=== PATIENT | female | born 1960 | race American Indian/Alaskan Native ===

== ENCOUNTER 2019-02-09 06:34 | Inpatient (IN) | payer MEDICAID ==
[2019-02-09] MEDS ORDERED: NACL 0.9% 1000 ML 1,000 ML IV ONE ×2 (07:00)
[2019-02-09] MEDS ORDERED: PROTONIX IV ONE (07:11)
[2019-02-09] MEDS ORDERED: ZOFRAN IV ONE (07:11)
--- NOTE | 2019-02-09 07:12 | Emergency Department Report ---
HPI - General Chief Complaint: GI Bleed Time Seen by Provider: 02/09/19 06:59 - HPI HPI: Room 4---> 2 The patient is a 58-year-old female presenting with a chief complaint of hematemesis. The patient states she's had hematemesis for the past 2-3 days. The patient states her last bowel movement was black and tarry. Patient states she felt weak for the past 3 days in addition to complaining of some shortness of breath. Patient states she developed diffuse abdominal pain tonight. The patient says she's had increased abdominal girth over the past "couple of days." Location: [See above] Duration: [See above] Quality: [See above] Severity: [See above] Modifying factors: [see above] Context: [see above] Mode of transportation: [not driving] ED Past Medical Hx - Past Medical History Previous Medical History?: Yes Hx Hypertension: Yes Hx Diabetes: Yes Hx Psychiatric Treatment: Yes (major depressive disorder, schizophrenia) Additional medical history: Cerebral infar, withh thrombosis of left cerebral artery, ESRDulcers of esophagus with bleeding, falls, hyperlipidemia, allergic rhinitis, constipation, anemia, vit D deficiency, hypothyroid, chronic pain, sinuitis, pruitis, didpl unsp condyle fx low end l femur 7th D, Hep C - Surgical History Past Surgical History?: Yes Additional Surgical History: left hip - Family History Family history: no significant - Social History Smoking Status: Never Smoker Substance Use Type: None ED Review of Systems ROS: Stated complaint: VOMITING BLOOD Other details as noted in HPI Constitutional: weakness Eyes: denies: eye pain ENT: denies: throat pain Respiratory: shortness of breath Cardiovascular: denies: chest pain Endocrine: no symptoms reported Gastrointestinal: abdominal pain, nausea, vomiting, hematemesis Genitourinary: denies: dysuria Musculoskeletal: denies: back pain Neurological: denies: headache Physical Exam - Physical Exam Vital Signs: Vital Signs 02/09/19 06:54 Temperature 97.7 F Pulse Rate 102 H Respiratory 12 Rate Blood Pressure 82/44 [Left] O2 Sat by Pulse 100 Oximetry Physical Exam: GENERAL: The patient is well-developed well-nourished female lying on stretcher appearing fatigued and ashen. [] HEENT: Normocephalic. Atraumatic. Extraocular motions are intact. Patient has moist mucous membranes. NECK: Supple. Trachea midline CHEST/LUNGS: Clear to auscultation. There is no respiratory distress noted. HEART/CARDIOVASCULAR: Regular. There is tachycardia. There is no gallop rub or murmur. ABDOMEN: Abdomen is soft, nontender. There is abdominal distention SKIN: There is no rash. There is no diaphoresis. NEURO: The patient is awake, alert, and oriented. The patient is cooperative. The patient has normal speech MUSCULOSKELETAL: There is no evidence of acute injury. RECTAL: Guaiac positive black stool ED Course Vital Signs 02/09/19 06:54 Temperature 97.7 F Pulse Rate 102 H Respiratory 12 Rate Blood Pressure 82/44 [Left] O2 Sat by Pulse 100 Oximetry - Consultations Consultation #1: 02/09/19 07:56 Gastroenterology paged 02/09/19 08:[address] Quiroz - STANLEY/Peripheral Line Neck L Time Out Performed: Yes Indications: multiple IV sites needed Skin Cleansed in Sterile Fashion: Yes Size: 20 Dressing Placed: Tegaderm Patient Tolerated Procedure: well, no complications ED Medical Decision Making - Lab Data Result diagrams: 02/09/19 07:08 02/09/19 07:08 Laboratory Tests 02/09/19 02/09/19 02/09/19 07:08 07:08 07:08 WBC 3.8 L RBC 1.30 L Hgb 3.7 L* Hct 11.3 L* MCV 87 MCH 28 MCHC 33 RDW 16.5 H Plt Count 70 L Lymph % (Auto) 18.8 [place] % (Auto) 2.8 Eos % (Auto) 0.0 Baso % (Auto) 0.4 Lymph # 0.7 L [place] # 0.1 Eos # 0.0 Baso # 0.0 Seg Neutrophils % 78.0 H Seg Neutrophils # 2.9 PT 16.1 H INR 1.33 H APTT 34.6 Sodium 137 Potassium 4.1 Chloride 100.0 Carbon Dioxide 27 Anion Gap 14 BUN 43 H Creatinine 4.1 H Estimated GFR 14 BUN/Creatinine Ratio 10 Glucose 138 H Calcium 7.6 L Total Bilirubin 0.20 AST 24 ALT < 5 L Alkaline Phosphatase 28 L Total Protein 5.3 L Albumin 2.4 L Albumin/Globulin Ratio 0.8 Blood Type Antibody Screen Crossmatch 02/09/19 07:08 WBC RBC Hgb Hct MCV MCH MCHC RDW Plt Count Lymph % (Auto) [place] % (Auto) Eos % (Auto) Baso % (Auto) Lymph # [place] # Eos # Baso # Seg Neutrophils % Seg Neutrophils # PT INR APTT Sodium Potassium Chloride Carbon Dioxide Anion Gap BUN Creatinine Estimated GFR BUN/Creatinine Ratio Glucose Calcium Total Bilirubin AST ALT Alkaline Phosphatase Total Protein Albumin Albumin/Globulin Ratio Blood Type B POSITIVE Antibody Screen Negative Crossmatch See Detail - Differential Diagnosis GI bleed Critical Care Time: Yes Critical care time in (mins) excluding proc time.: 30 Critical care attestation.: If time is entered above; I have spent that time in minutes in the direct care of this critically ill patient, excluding procedure time. ED Disposition Clinical Impression: GI bleed Disposition: DC-09 OP ADMIT IP TO THIS HOSP Is pt being admited?: Yes Does the pt Need Aspirin: No Condition: Serious Referrals: STACIE CARPOI MD [Primary Care Provider] - 3-5 Days Forms: Accompanied Note Time of Disposition: 08:06 (hospitalist paged)
[2019-02-09 07:30] LABS: Basophils % (Auto) 0.4 % (0.0-1.8); Lymphocytes # (Auto) 0.7 K/mm3 (1.2-5.4); Lymphocytes % (Auto) 18.8 % (13.4-35.0); Mean Corpuscular HGB Conc 33 % (30-34); Mean Corpuscular Volume 87 fl (79-97); Monocytes # (Auto) 0.1 K/mm3 (0.0-0.8); Monocytes % (Auto) 2.8 % (0.0-7.3); Red Cell Distribution Width 16.5 % (13.2-15.2)
[2019-02-09 07:40] LABS: INR 1.33 (0.87-1.13)
[2019-02-09 07:41] LABS: Partial Thromboplastin Time 34.6 Sec. (24.2-36.6)
[2019-02-09] MEDS ORDERED: NACL 0.9% 500 ML 500 ML IV ONE (07:51)
[2019-02-09 07:53] LABS: Albumin 2.4 g/dL (3.9-5); BUN/Creatinine Ratio 10; Blood Urea Nitrogen 43 mg/dL (7-17); Calcium 7.6 mg/dL (8.4-10.2); Hemolysis Index 2
[2019-02-09 07:54] LABS: Hematocrit 11.3 % (30.3-42.9); Hemoglobin 3.7 gm/dl (10.1-14.3); Platelet Count 70 K/mm3 (140-440)
[2019-02-09 07:58] LABS: Alanine Aminotransferase < 5 units/L (7-56)
[2019-02-09] MEDS: PROTONIX 80 MG in NACL 0.9% 100 ML IV SCH (08:05)
[2019-02-09] MEDS ORDERED: NACL 0.9% IV ONE (08:30)
[2019-02-09] MEDS ORDERED: DDAVP IV ONE (08:30)
[2019-02-09] MEDS ORDERED: LEVOPHED DRIP 4 MG/NS 250 ML 4 MG/250 ML BAG IV SCH (09:00)
--- NOTE | 2019-02-09 09:26 | History and Physical Report ---
History of Present Illness Date of examination: 02/09/19 Date of admission: 02/09/19 08:16 Chief complaint: Hematemesis/Rima 2-3 days History of present illness: 58-year-old female patient with significant past medical history of end-stage renal disease on hemodialysis, hepatitis C, GI bleeding in the past, recently admitted in [facility] discharged a few days ago presented to the emergency room with complaints of hematemesis, black Stools for the last 2-3 days Recent complaints of generalized weakness and some shortness of breath. Patient also complains of worsening abdominal distention Evaluation in the emergency room is consistent with severe anemia with hemoglobin of 3.7, positive stool guaiac and coffee-ground emesis Patient was hypotensive, slightly improved with fluid bolus No other history available, requested medical records from [place] Past History Past Medical History: anemia, dialysis, ESRD, liver disease, other (hepatitis C, schizophrenia, depression, CVA) Past Surgical History: No surgical history Social history: other (group home resident). denies: smoking, alcohol abuse Family history: no significant family history Medications and Allergies Allergies Allergy/AdvReac Type Severity Reaction Status Date / Time guaifenesin [From Robitussin] Allergy Hives Verified 02/09/19 07:00 Penicillins Allergy Hives Verified 02/09/19 07:00 Home Medications Medication Instructions Recorded Confirmed Last Taken Type Acetaminophen [Tylenol] 650 mg PO Q12HR PRN 02/09/19 02/09/19 Unknown History Aspirin EC 81 mg PO QDAY 02/09/19 02/09/19 Unknown History Atorvastatin [Lipitor Tab] 80 mg PO QHS 02/09/19 02/09/19 Unknown History Esomeprazole Magnesium [NexIUM] 40 mg PO Q12H 02/09/19 02/09/19 Unknown History Fluticasone [Flonase] 1 spray NS QDAY 02/09/19 02/09/19 Unknown History Lispro Insulin [HumaLOG] See Protocol SUB-Q ACHS 02/09/19 02/09/19 Unknown History Polyethylene Glycol 3350 [Miralax 17 gm PO QDAY 02/09/19 02/09/19 Unknown History 3350] Active Meds: Active Medications Pantoprazole Sodium 80 mg/ (Sodium Chloride) 100 mls @ 10 mls/hr IV DIRECT ROSELINE Last Admin: 02/09/19 08:05 Dose: 8 mg/hr, 10 mls/hr Documented by: Norepinephrine (Levophed Drip 4 Mg/Ns 250 Ml) 4 mg in 250 mls @ 7.5 mls/hr IV TITR ROSELINE; Protocol Pantoprazole Sodium (Protonix) 40 mg IV BID ROSELINE Review of Systems ROS unobtainable: due to mental status Exam - Constitutional Vitals: Temp Pulse Resp BP Pulse Ox 97.6 F 99 H 11 L 87/51 99 02/09/19 09:12 02/09/19 09:12 02/09/19 09:12 02/09/19 09:12 02/09/19 09:12 General appearance: Present: severe distress, cachectic, disheveled - EENT Eyes: Present: PERRL ([place]) - Neck Neck: Present: supple - Respiratory Respiratory effort: labored Respiratory: bilateral: diminished, rhonchi, negative: rales, wheezing - Cardiovascular Rhythm: regular Heart Sounds: Present: S1 & S2 - Extremities Extremities: no ischemia Extremity abnormal: edema (bilateral), other (chronic changes) - Abdominal General gastrointestinal: Present: soft, non-tender, distended, other (ascites) - Integumentary Integumentary: Present: clear, warm - Musculoskeletal Musculoskeletal: generalized weakness - Psychiatric Psychiatric: agitated - Neurologic Neurologic: moves all extremities Results - Labs CBC & Chem 7: 02/09/19 14:02 02/09/19 07:08 Labs: Abnormal lab results 02/09/19 02/09/19 02/09/19 Range/Units 07:08 07:08 07:08 WBC 3.8 L (4.5-11.0) K/mm3 RBC 1.30 L (3.65-5.03) M/mm3 Hgb 3.7 L* (10.1-14.3) gm/dl Hct 11.3 L* (30.3-42.9) % RDW 16.5 H (13.2-15.2) % Plt Count 70 L (140-440) K/mm3 Lymph # 0.7 L (1.2-5.4) K/mm3 Seg Neutrophils % 78.0 H (40.0-70.0) % PT 16.1 H (12.2-14.9) Sec. INR 1.33 H (0.87-1.13) BUN 43 H (7-17) mg/dL Creatinine 4.1 H (0.7-1.2) mg/dL Glucose 138 H (65-100) mg/dL Calcium 7.6 L (8.4-10.2) mg/dL ALT < 5 L (7-56) units/L Alkaline Phosphatase 28 L (35-129) units/L Total Protein 5.3 L (6.3-8.2) g/dL Albumin 2.4 L (3.9-5) g/dL Crossmatch 02/09/19 Range/Units 07:08 WBC (4.5-11.0) K/mm3 RBC (3.65-5.03) M/mm3 Hgb (10.1-14.3) gm/dl Hct (30.3-42.9) % RDW (13.2-15.2) % Plt Count (140-440) K/mm3 Lymph # (1.2-5.4) K/mm3 Seg Neutrophils % (40.0-70.0) % PT (12.2-14.9) Sec. INR (0.87-1.13) BUN (7-17) mg/dL Creatinine (0.7-1.2) mg/dL Glucose (65-100) mg/dL Calcium (8.4-10.2) mg/dL ALT (7-56) units/L Alkaline Phosphatase (35-129) units/L Total Protein (6.3-8.2) g/dL Albumin (3.9-5) g/dL Crossmatch See Detail Assessment and Plan --Acute upper GI bleeding; Patient has history of hepatitis C, possible variceal source Nothing by mouth , protonic drip, GI consult --Severe acute blood loss anemia; Due to GI bleeding, hemoglobin 3.7% on admission Type and cross, transfuse 2 units PRBCs Additional PRBC transfusion as needed GI evaluation --Hypotension; secondary to acute blood loss; Blood transfusion, IV fluids, Levophed if needed --History of hepatitis C; GI consulted --Ascites; check abdominal ultrasound consider abdominal paracentesis --End-stage renal disease on hemodialysis; Nephrology consulted, hemodialysis per schedule --Severe malnutrition/hypoalbuminemia; nutrition supplements Supportive care, nutrition consult --DVT prophylaxis; SCD No pharmacologic anticoagulation due to GI bleeding --CODE STATUS full code Patient is critically ill, with multiple medical problems Poor prognosis. Patient's condition, treatment plan, prognosis, CODE STATUS Discussed with the mother and sister at the bedside. Addressed all their questions and concerns. Critical care time 60 minutes
[2019-02-09] MEDS ORDERED: NACL 0.9% 500 ML 500 ML IV NR (09:30)
[2019-02-09] MEDS ORDERED: PROTONIX IV SCH (10:00)
--- NOTE | 2019-02-09 11:10 | Ultrasound Report ---
ULTRASOUND ABDOMEN, COMPLETE INDICATION: Ascitis/abd distention. COMPARISON: No relevant prior imaging study available. FINDINGS: Pancreas: No significant abnormality. Abdominal Aorta: No significant abnormality. IVC: No significant abnormality. Liver: The liver measures 15 cm in length. No significant abnormality. Normal hepatopedal blood flow in the main portal vein. Gallbladder: The gallbladder is normal size and contour. At least one small gallstone measuring 5 mm is identified.. Bile ducts: No significant abnormality. Common bile duct measures 4 mm. Kidneys: Right: 9.4 cm in length. Increased echotexture in the right kidney. Left: 8.5 cm in lengt h. Increased echotexture in the left kidney.. Spleen: No significant abnormality. Free fluid: Moderate to large ascites is demonstrated. Additional Findings: None. IMPRESSION: Moderate to large ascites. Unremarkable sonographic appearance of the liver. Echogenic kidneys consistent with nonspecific renal parenchymal disease. Gallstone.. Signer Name: Travis Waggoner Jr, MD Signed: 02/09/2019 11:05 AM Workstation Name: [id number]
--- NOTE | 2019-02-09 11:53 | XRay Report ---
CHEST 1 VIEW INDICATION: Anemia/shortness of breath. COMPARISON: None FINDINGS: Support devices: A right IJ dual-lumen catheter terminates in the right atrium. Heart: Mild cardiomegaly. Lungs/Pleura: Mild pulmonary venous congestion is identified. No pleural effusion or pneumothorax. Fo brendon area of atelectasis is suspected in the lingula. No evidence for pneumonia. Additional findings: None. IMPRESSION: Mild cardiomegaly and pulmonary venous congestion. Segmental atelectasis in the lingula. Signer Name: Travis Waggoner Jr, MD Signed: 02/09/2019 11:48 AM Workstation Name: [id number]
[2019-02-09 14:10] LABS: Hemoglobin 6.4 gm/dl (10.1-14.3); Mean Corpuscular HGB Conc 35 % (30-34); Mean Corpuscular Volume 85 fl (79-97); Red Blood Count 2.16 M/mm3 (3.65-5.03); Red Cell Distribution Width 15.8 % (13.2-15.2)
[2019-02-09 14:20] LABS: Hematocrit 18.4 % (30.3-42.9); Platelet Count 68 K/mm3 (140-440)
--- NOTE | 2019-02-09 14:52 | Consultation ---
History of Present Illness - Reason for Consult Consult date: 02/09/19 Hematemesis Requesting physician: QUINTIN REYES - History of Present Illness Ms. Bess is a 58-year-old woman who was transferred from a rehabilitation facility for vomiting of blood. Family is in the room. Patient was apparently at [facility] twice over the last several weeks with a 11 day hospitalization last time. She was just discharged to home on February 05 and sent to a rehabilitation facility because of a knee injury a year ago and the need to use a walker. According to the family, she was just diagnosed with end-stage renal disease for unclear reasons, and started on hemodialysis 2 weeks ago. Also, patient had hematemesis and was evaluated at [facility] with an upper endoscopy and a colonoscopy approximately 2 weeks ago. The family states that no cause for the bleeding was found. Unfortunately, records are not currently available. Patient states that she has an ulcer in the distal past. She denies heartburn or regurgitation. She notes that this vomiting started initially with by mouth intake, and the blood was not noted initially on vomiting. Patient denies abdominal pain. Bowel movements are once or twice a day, and she states they're green. Patient has a history of hepatitis C, but no known history of cirrhosis. She was apparently on 81 mg aspirin, and Nexium at the re habilitation facility. Medications reviewed. Past History Past Medical History: anemia, dialysis, ESRD, liver disease (Chronic HCV, schizophrenia, L cerebral infarct), other (hepatitis C, schizophrenia, depression, CVA) Past Surgical History: No surgical history Social history: other ([facility] resident). denies: smoking, alcohol abuse Family history: no significant family history Medications and Allergies Allergies Allergy/AdvReac Type Severity Reaction Status Date / Time guaifenesin [From Robitussin] Allergy Hives Verified 02/09/19 07:00 Penicillins Allergy Hives Verified 02/09/19 07:00 Home Medications Medication Instructions Recorded Confirmed Last Taken Type Acetaminophen [Tylenol] 650 mg PO Q12HR PRN 02/09/19 02/09/19 Unknown History Aspirin EC 81 mg PO QDAY 02/09/19 02/09/19 Unknown History Atorvastatin [Lipitor Tab] 80 mg PO QHS 02/09/19 02/09/19 Unknown History Esomeprazole Magnesium [NexIUM] 40 mg PO Q12H 02/09/19 02/09/19 Unknown History Fluticasone [Flonase] 1 spray NS QDAY 02/09/19 02/09/19 Unknown History Lispro Insulin [HumaLOG] See Protocol SUB-Q ACHS 02/09/19 02/09/19 Unknown History Polyethylene Glycol 3350 [Miralax 17 gm PO QDAY 02/09/19 02/09/19 Unknown History 3350] Active Meds: Active Medications Pantoprazole Sodium 80 mg/ (Sodium Chloride) 100 mls @ 10 mls/hr IV DIRECT ROSELINE Last Admin: 02/09/19 08:05 Dose: 8 mg/hr, 10 mls/hr Documented by: Norepinephrine (Levophed Drip 4 Mg/Ns 250 Ml) 4 mg in 250 mls @ 7.5 mls/hr IV TITR ROSELINE; Protocol Sodium Chloride (Nacl 0.9% 500 Ml) 500 mls @ 0 mls/hr IV ONCE NR Stop: 02/09/19 18:00 Review of Systems All systems: negative Exam - Constitutional Vitals: Temp Pulse Resp BP Pulse Ox 97.4 F L 100 H 14 114/66 98 02/09/19 12:05 02/09/19 14:43 02/09/19 14:43 02/09/19 14:43 02/09/19 14:43 General appearance: Present: no acute distress - EENT Eyes: Present: PERRL, EOM intact ENT: hearing intact, other (R IJ line in place for dialysis) - Neck Neck: Present: supple - Respiratory Respiratory effort: normal Respiratory: bilateral: CTA - Cardiovascular Rhythm: regular Heart Sounds: Present: S1 & S2 - Extremities Extremity abnormal: edema (4+) - Abdominal General gastrointestinal: Present: soft, non-tender, other (Anasarca and protruding) Results - Labs CBC & Chem 7: 02/09/19 14:02 02/09/19 07:08 Labs: Abnormal lab results 02/09/19 02/09/19 02/09/19 Range/Units 07:08 07:08 07:08 WBC 3.8 L (4.5-11.0) K/mm3 RBC 1.30 L (3.65-5.03) M/mm3 Hgb 3.7 L* (10.1-14.3) gm/dl Hct 11.3 L* (30.3-42.9) % MCHC (30-34) % RDW 16.5 H (13.2-15.2) % Plt Count 70 L (140-440) K/mm3 Lymph # 0.7 L (1.2-5.4) K/mm3 Seg Neutrophils % 78.0 H (40.0-70.0) % PT 16.1 H (12.2-14.9) Sec. INR 1.33 H (0.87-1.13) BUN 43 H (7-17) mg/dL Creatinine 4.1 H (0.7-1.2) mg/dL Glucose 138 H (65-100) mg/dL Calcium 7.6 L (8.4-10.2) mg/dL ALT < 5 L (7-56) units/L Alkaline Phosphatase 28 L (35-129) units/L Total Protein 5.3 L (6.3-8.2) g/dL Albumin 2.4 L (3.9-5) g/dL Crossmatch 02/09/19 02/09/19 Range/Units 07:08 14:02 WBC 4.1 L (4.5-11.0) K/mm3 RBC 2.16 L (3.65-5.03) M/mm3 Hgb 6.4 L (10.1-14.3) gm/dl Hct 18.4 L* D (30.3-42.9) % MCHC 35 H (30-34) % RDW 15.8 H (13.2-15.2) % Plt Count 68 L (140-440) K/mm3 Lymph # (1.2-5.4) K/mm3 Seg Neutrophils % (40.0-70.0) % PT (12.2-14.9) Sec. INR (0.87-1.13) BUN (7-17) mg/dL Creatinine (0.7-1.2) mg/dL Glucose (65-100) mg/dL Calcium (8.4-10.2) mg/dL ALT (7-56) units/L Alkaline Phosphatase (35-129) units/L Total Protein (6.3-8.2) g/dL Albumin (3.9-5) g/dL Crossmatch See Detail - Imaging and Cardiology US - abdomen: report reviewed (Moderate ascites, normal liver, gallstone) Assessment and Plan 1. Hematemesis - with anemia. Etiology unclear. Perplexing since pt just had EGD/Colon at [facility] ~ 2 wks ago. Need to reevaluate to see if there is truly blood in stomach, and to o/w identify source. DDx - PUD, varices, mass, es ophagitis, though Paula-Alamo tear most likely if negative recent EGD. - will do urgent EGD - risks, etc discussed with pt and family. - agree with PPI drip - further plans based on EGD 2. Anemia - acute, blood loss. Baseline H/H unknown, and likely has chronic anemia based on ESRD. - transfuse and monitor. 3. Hx HCV - chronic. Outpatient management. Need to try and get [facility] records.
[2019-02-09] MEDS ORDERED: XYLOCAINE MPF 2% ONE (15:00)
--- NOTE | 2019-02-09 15:16 | Consultation ---
History of Present Illness - Reason for Consult Consult date: 02/09/19 end stage renal disease - History of Present Illness Mrs. Bess is a 58-year-old female w/ hx of HCV and recent dx of ESRD who presented to the ED with a 3-4 day history of melena and hemetemesis. Patient denies abdominal pain. She reports weakness. In the ED, patient was hypotensive. Labs were notable for a Hb 3.7. During visit, she again had an episosde of hemetemesis. Past History Past Medical History: anemia, dialysis, ESRD, hepatitis (Hepatitis C ), hyperlipidemia, liver disease (Chronic HCV, schizophrenia, L cerebral infarct), stroke, other (Schizophrenia, Depression) Past Surgical History: No surgical history Social history: other (half-way resident). denies: smoking, alcohol abuse Family history: no significant family history Medications and Allergies Allergies Allergy/AdvReac Type Severity Reaction Status Date / Time guaifenesin [From Robitussin] Allergy Hives Verified 02/09/19 07:00 Penicillins Allergy Hives Verified 02/09/19 07:00 Home Medications Medication Instructions Recorded Confirmed Last Taken Type Acetaminophen [Tylenol] 650 mg PO Q12HR PRN 02/09/19 02/09/19 Unknown History Aspirin EC 81 mg PO QDAY 02/09/19 02/09/19 Unknown History Atorvastatin [Lipitor Tab] 80 mg PO QHS 02/09/19 02/09/19 Unknown History Esomeprazole Magnesium [NexIUM] 40 mg PO Q12H 02/09/19 02/09/19 Unknown History Fluticasone [Flonase] 1 spray NS QDAY 02/09/19 02/09/19 Unknown History Lispro Insulin [HumaLOG] See Protocol SUB-Q ACHS 02/09/19 02/09/19 Unknown History Polyethylene Glycol 3350 [Miralax 17 gm PO QDAY 02/09/19 02/09/19 Unknown History 3350] Active Meds: Active Medications Pantoprazole Sodium 80 mg/ (Sodium Chloride) 100 mls @ 10 mls/hr IV DIRECT ROSELINE Last Admin: 02/09/19 08:05 Dose: 8 mg/hr, 10 mls/hr Documented by: Norepinephrine (Levophed Drip 4 Mg/Ns 250 Ml) 4 mg in 250 mls @ 7.5 mls/hr IV TITR ROSELINE; Protocol Sodium Chloride (Nacl 0.9% 500 Ml) 500 mls @ 0 mls/hr IV ONCE NR Stop: 02/09/19 18:00 Review of Systems All systems: negative Exam - Vital Signs Vital signs: Vital Signs Temp Pulse Resp BP Pulse Ox 97.7 F 102 H 12 82/44 100 02/09/19 06:54 02/09/19 06:54 02/09/19 06:54 02/09/19 06:54 02/09/19 06:54 - General Appearance General appearance: frail, other (appears older than stated age) EENT: ATNC Respiratory: Decreased Breath Sounds Heart: regular, S1S2 Gastrointestinal: Present: other (markedly distended, tense ascites, nontender) Integumentary: no rash, warm and dry Musculoskeletal: Present: other (+edema) Psychiatric: cooperative Results - Lab Results 02/10/19 04:00 02/09/19 07:08 Most recent lab results Calcium 7.6 mg/dL (8.4-10.2) L 02/09/19 07:08 Assessment and Plan Impression: * End stage renal disease on HD TTS * Upper GI bleed --EGD: Normal esophagus, no varices; 4 cm hiatal hernia, no obvious Paula- [place] tear; gastric fundus and greater curve of body obscured by clot and small amount of fresh blood. No active pooling or bleeding noted. No antroduodenal ulcers --Abdominal u/s: mod to large ascites; unremarkable sonographic appearance of the liver --CTA Abd/Pelvis: large amt of abdominal ascites. Cirrhotic morphology of liver w/ nodular surface contour; moderate diffuse hepatic steatosis w/ focal geographic 3.7cm perfusion abnormality or focal fatty sparing * Severe anemia * Hypotension secondary to ABL * Abdominal ascities * Hepatitis C Plan: * Presently, patient is not stable for hemodialysis. During visit, she again had an episosde of hemetemesis. There is no emergent need for HD presently * Will reassess in AM * Transfuse pRBC per primary team * Therapeutic paracentesis per primary team * GI recommendations noted * Note radiology recommendation for three phase abdominal CT * Avoid potential nephrotoxins * Dose medications for renal function
[2019-02-09] MEDS ORDERED: DIPRIVAN 10 MG/ML IV ONE (15:17)
[2019-02-09] MEDS ORDERED: AMIDATE IV ONE (15:17)
[2019-02-09] MEDS ORDERED: VERSED ONE (15:17)
[2019-02-09] MEDS ORDERED: WATER FOR IRRIG STERILE IR ONE (15:31)
[2019-02-09] MEDS ORDERED: NACL 0.9% 1000 ML 1,000 ML ONE (15:33)
[2019-02-09] MEDS ORDERED: ADRENALINE P/F ONE (15:33)
--- NOTE | 2019-02-09 15:33 | Anesthesia Day of Surgery ---
Anesthesia Day of Surgery - Day of Surgery Patient Examined: Yes Patient H&P Reviewed: Yes Patient is NPO: Yes
--- NOTE | 2019-02-09 15:43 | Anesthesia Consultation ---
Anesthesia Consult and Med Hx Date of service: 02/09/19 - Airway Anesthetic Teeth Evaluation: Poor ROM Head & Neck: Adequate Mental/Hyoid Distance: Adequate Mallampati Class: Class II Intubation Access Assessment: Probably Good - Pre-Operative Health Status ASA Pre-Surgery Classification: ASA4, Emergency Proposed Anesthetic Plan: MAC - Cardiovascular System Hx Hypertension: Yes (HX CHF) - Central Nervous System Hx Seizures: No (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) Hx Psychiatric Problems: Yes (Depression and schizophrenia) - Gastrointestinal Hx Ulcer: Yes - Endocrine Hx Renal Disease: Yes Hx End Stage Renal Disease: Yes (Last HD yesterday) Hx Liver Disease: Yes (HEP C) Hx Insulin Dependent Diabetes: Yes Hx Thyroid Disease: Yes - Hematic Hx Anemia: Yes (Received 3 units PRBC)
--- NOTE | 2019-02-09 16:08 | Post Operative Note ---
Pre-op diagnosis: GI bleed Post-op diagnosis: other (Hiatal hernia, Fresh blood and clot in gastric fundus and body, no varices, no antroduodenal ulcers.) Findings: 1. Normal esophagus, no varices. 2. ~ 4 cm hiatal hernia, no obvious Paula-Alamo tear 3. Gastric fundus and greater curve of body obscured by clot and small amount of fresh blood. No active pooling or bleeding noted. 4. Normal antrum, cardia, and duodenum. Procedure: EGD Anesthesia: MAC Surgeon: BRY REYNA Estimated blood loss: 50-100ml Pathology: none Condition: stable Disposition: ICU (1. IV PPI drip 2. Discuss DDAVP with Renal 3. Monitor H/H and transfuse if needed. 4. If ongoing bleed, IR consultation.)
--- NOTE | 2019-02-09 16:53 | Consultation ---
History of Present Illness - Reason for Consult Consult date: 02/09/19 upper GI bleed - History of Present Illness Pt with ESRD recently released from [place] now with upper GI bleed and Hgb of 3. 7. Endoscopy with no active source of bleeding but evidence of fresh blood. Past History Past Medical History: anemia, dialysis, ESRD, liver disease (Chronic HCV, schizophrenia, L cerebral infarct), other (hepatitis C, schizophrenia, depression, CVA) Past Surgical History: No surgical history Social history: other (halfway resident). denies: smoking, alcohol abuse Family history: no significant family history Medications and Allergies Allergies Allergy/AdvReac Type Severity Reaction Status Date / Time guaifenesin [From Robitussin] Allergy Hives Verified 02/09/19 07:00 Penicillins Allergy Hives Verified 02/09/19 07:00 Home Medications Medication Instructions Recorded Confirmed Last Taken Type Acetaminophen [Tylenol] 650 mg PO Q12HR PRN 02/09/19 02/09/19 Unknown History Aspirin EC 81 mg PO QDAY 02/09/19 02/09/19 Unknown History Atorvastatin [Lipitor Tab] 80 mg PO QHS 02/09/19 02/09/19 Unknown History Esomeprazole Magnesium [NexIUM] 40 mg PO Q12H 02/09/19 02/09/19 Unknown History Fluticasone [Flonase] 1 spray NS QDAY 02/09/19 02/09/19 Unknown History Lispro Insulin [HumaLOG] See Protocol SUB-Q ACHS 02/09/19 02/09/19 Unknown History Polyethylene Glycol 3350 [Miralax 17 gm PO QDAY 02/09/19 02/09/19 Unknown History 3350] Active Meds: Active Medications Desmopressin Acetate (Ddavp) 2 mcg IV Q12HR ROSELINE Pantoprazole Sodium 80 mg/ (Sodium Chloride) 100 mls @ 10 mls/hr IV DIRECT ROSELINE Last Admin: 02/09/19 08:05 Dose: 8 mg/hr, 10 mls/hr Documented by: Norepinephrine (Levophed Drip 4 Mg/Ns 250 Ml) 4 mg in 250 mls @ 7.5 mls/hr IV TITR ROSELINE; Protocol Last Admin: 02/09/19 16:40 Dose: 4 mcg/min, 15 mls/hr Documented by: Sodium Chloride (Nacl 0.9% 500 Ml) 500 mls @ 0 mls/hr IV ONCE NR Stop: 02/09/19 18:00 Review of Systems All systems: negative Exam - Constitutional Vitals: Temp Pulse Resp BP Pulse Ox 98.2 F 102 H 18 107/52 99 02/09/19 15:10 02/09/19 15:10 02/09/19 15:10 02/09/19 15:10 02/09/19 15:10 General appearance: Present: no acute distress - EENT Eyes: Present: EOM intact ENT: hearing intact - Neck Neck: Present: supple, normal ROM - Respiratory Respiratory effort: normal - Cardiovascular Rhythm: other (tachycardia) - Abdominal General gastrointestinal: Present: deferred Female genitourinary: Present: deferred - Rectal Rectal Exam: deferred - Psychiatric Psychiatric: cooperative Results - Labs CBC & Chem 7: 02/09/19 14:02 02/09/19 07:08 Labs: Abnormal lab results 02/09/19 02/09/19 02/09/19 Range/Units 07:08 07:08 07:08 WBC 3.8 L (4.5-11.0) K/mm3 RBC 1.30 L (3.65-5.03) M/mm3 Hgb 3.7 L* (10.1-14.3) gm/dl Hct 11.3 L* (30.3-42.9) % MCHC (30-34) % RDW 16.5 H (13.2-15.2) % Plt Count 70 L (140-440) K/mm3 Lymph # 0.7 L (1.2-5.4) K/mm3 Seg Neutrophils % 78.0 H (40.0-70.0) % PT 16.1 H (12.2-14.9) Sec. INR 1.33 H (0.87-1.13) BUN 43 H (7-17) mg/dL Creatinine 4.1 H (0.7-1.2) mg/dL Glucose 138 H (65-100) mg/dL Calcium 7.6 L (8.4-10.2) mg/dL ALT < 5 L (7-56) units/L Alkaline Phosphatase 28 L (35-129) units/L Total Protein 5.3 L (6.3-8.2) g/dL Albumin 2.4 L (3.9-5) g/dL Crossmatch 02/09/19 02/09/19 Range/Units 07:08 14:02 WBC 4.1 L (4.5-11.0) K/mm3 RBC 2.16 L (3.65-5.03) M/mm3 Hgb 6.4 L (10.1-14.3) gm/dl Hct 18.4 L* D (30.3-42.9) % MCHC 35 H (30-34) % RDW 15.8 H (13.2-15.2) % Plt Count 68 L (140-440) K/mm3 Lymph # (1.2-5.4) K/mm3 Seg Neutrophils % (40.0-70.0) % PT (12.2-14.9) Sec. INR (0.87-1.13) BUN (7-17) mg/dL Creatinine (0.7-1.2) mg/dL Glucose (65-100) mg/dL Calcium (8.4-10.2) mg/dL ALT (7-56) units/L Alkaline Phosphatase (35-129) units/L Total Protein (6.3-8.2) g/dL Albumin (3.9-5) g/dL Crossmatch See Detail Assessment and Plan Pt will likely ultimately need treatment. Stable for now so will obtain a CT of the Abdomen and Pelvis to evaluate for possible sources of bleeding.
--- NOTE | 2019-02-09 18:07 | Operative Report ---
UPPER ENDOSCOPY REPORT PROCEDURE: Upper endoscopy. PREOPERATIVE DIAGNOSIS: Hematemesis. POSTOPERATIVE DIAGNOSIS: Fresh red blood and clot in proximal stomach. SEDATION: MAC by Anesthesia. HISTORY: The patient is a 58-year-old woman with end-stage renal disease, starting dialysis 2 weeks ago. She has a history of hematemesis less than a month ago and had an upper and lower endoscopy at [facility], which was apparently nondiagnostic according to the family. She was discharged from [facility] 4 days ago and brought in from the rehab center today because of vomiting blood. Her hemoglobin was 3.5 on admission. DESCRIPTION OF PROCEDURE: Indications, risks, and benefits were explained and consent was obtained. The patient was placed in left lateral decubitus position and sedated. Video upper endoscope was passed through the mouth and oropharynx into the descending duodenum. Scope was then gradually withdrawn with close inspection of mucosa. FINDINGS: 1. Normal appearing esophagus with no varices noted. There was fresh red blood and clot refluxing up from the stomach. 2. A 3-4 cm hiatal hernia. No Paula-Alamo tear noted. 3. Gastric antrum and lesser curve appeared normal with no ulcers, mass lesions or active bleeding noted. 4. There was fresh red blood and clot in gastric fundus along greater curvature. There was no active pooling noted. This precluded visualization. 5. Normal appearing duodenal bulb and duodenum. The patient tolerated the procedure well without immediate complications. IMPRESSION: 1. Normal esophagus with hiatal hernia and no varices or Paula-Alamo tear. 2. Fresh red blood and clot in gastric fundus and greater curvature of body precluding visualization. 3. Normal antrum, duodenal bulb and duodenum. PLAN: 1. Monitor H and H and transfuse as needed, in ICU. 2. Discussed possible dose of DDAVP with Nephrology, in order to try and facilitate clotting. 3. If has further bleeding, Interventional Radiology evaluation. 4. The patient may well have a Dieulafoy's lesion as a source of bleeding if nothing else is found. JOB# [id number] HRC/NTS
[2019-02-09 19:11] LABS: Hematocrit 18.1 % (30.3-42.9); Hemoglobin 5.9 gm/dl (10.1-14.3)
[2019-02-09] MEDS ORDERED: NACL 0.9% 250ML 250 ML ONE (21:02)
--- NOTE | 2019-02-09 21:39 | Cat Scan Report ---
CTA ABDOMEN AND PELVIS WITHOUT AND WITH IV CONTRAST INDICATION: upper GI bleed arterial and venous phases. TECHNIQUE: Axial CT images were obtained through the abdomen and pelvis before and after after injection of 100 cc Omnipaque 350 IV contrast. 3 plane MIP reconstructions were produced. [facility] CT [facility] are [facility] using CT dose reduction for ALARA by means of automated exposure control. COMPARISON: None available. FINDINGS: Aorta: Extensive vascular calcifications without aneurysmal dilatation or dissection. Renal arteries: Extensive calcified plaque right proximal renal artery with 75-90% diameter stenosis reduction. Moderate atherosclerotic vascular disease left renal artery with 50% diameter stenosis red uction Celiac artery: 35% diameter stenosis reduction at the origin Superior mesenteric artery: No acute abnormality. Inferior mesenteric artery: No acute abnormality. Right iliac arteries: Moderate atherosclerotic calcifications without stenosis or occlusion Left iliac arteries: Moderate atherosclerotic disease without stenosis or occlusion The esophagus is fluid-filled and moderately dilated. Moderate bilateral pleural effusions, right gre ater than left are present with compressive atelectasis in both lower lobes. CT ABDOMEN: Large amount of abdominal ascites. Cirrhotic morphology of liver with nodular surface con tour. Moderate diffuse hepatic steatosis with focal geographic 3.7 cm perfusional abnormality or foca l fatty sparing. Pancreas, spleen, adrenals and kidneys appear within normal limits. CT PELVIS: Massive amount of ascites is seen throughout the pelvis. There is displacement of bowel lo ops centrally without obstruction or ileus. Uterus, adnexal structures, bladder and distal ureters ar e unremarkable. No lymphadenopathy is seen throughout the abdomen or pelvis. Skeletal Structures: No acute osseous abnormality. IMPRESSION: 1. Cirrhosis with massive amount of abdominal ascites. 2. Indeterminate 3.7 cm enhancing or perfusional abnormality within the anterior hepatic segment. Rec ommend follow-up three-phase abdominal CT or to exclude underlying hepatocellular carcinoma. 3. Fluid-filled moderately dilated esophagus. 4 moderate bilateral pleural effusions. Signer Name: Kenton Marrero MD Signed: 02/09/2019 9:34 PM Workstation Name: [id number]
[2019-02-09] MEDS: ZOFRAN IV PRN (23:26)
[2019-02-10] MEDS ORDERED: NACL 0.9% 500 ML 500 ML IV ONE ×3 (01:09→03:48)
--- NOTE | 2019-02-10 03:35 | Procedure Note ---
Date of procedure: 02/10/19 Pre-op diagnosis: hypotension. gi bleed Post-op diagnosis: same Procedure: Procedure note: I was asked by the hospitalist group to place a central venous line in the patient since the patient is hypotensive and on pressors and receiving multiple units of blood. Patient currently has a left EJ being used and a right chest Vas-Cath. Patient required a femoral line placed since there is no other side available. Consent was done by the hospitalist nurse practitioner and myself. The patient agreed to have the procedure done. Femoral Central Line Procedure Note: INDICATION: Hypotension on pressors and IV access. Ultrasound Used: Y CONSENT: Consent was obtained from patient prior to the procedure. Indications, risks, and benefits were explained at length. PROCEDURE SUMMARY: starting with the first handwash prior to starting sterile technique. A time out was performed. My hands were washed immediately prior to the procedure. I wore a surgical cap, mask with protective eyewear, sterile gown and sterile gloves throughout the procedure. The RIGHT inguinal region was prepped using chlorhexidine scrub and draped in sterile fashion using a full drape and sterile probe cover employed. The femoral pulse was identified. Anesthesia was achieved using 1% lidocaine. Palpating the femoral pulse throughout the procedure and ultrasound guidance, the introducer needle was inserted medial to the femoral artery, inferior to the inguinal crease and into the femoral vein. Venous blood was withdrawn. The syringe was removed and a guidewire was advanced into the introducer needle. A small incision was made at the skin surface with a scalpel and the introducer needle was exchanged for a dilator over the guidewire. After appropriate dilation was obtained, the dilator was exchanged over the wire for a triple lumen central venous catheter. The wire was removed and the catheter was sutured in place. A sterile antibiotic disc was placed over the catheter at the insertion site. Sterile dressing/Tegaderm placed over triple lumen. The patient tolerated the procedure without any hemodynamic compromise. At time of procedure completion, all ports aspirated and flushed properly. Estimated blood loss is minimal. Anesthesia: local Estimated blood loss: minimal Pathology: none Condition: critical Disposition: ICU
--- NOTE | 2019-02-10 03:36 | Event Note ---
Date: 02/10/19 58 year old female with ESRD and upper GI bleed. Has had melena and poor response to pRBC. CT scan shows ascites, pleural effusions, anasarca, but there is NO CIRRHOSIS. The liver has a normal contour. The spleen is small-normal in size. NO VARICES. Discussed with Dr. Espinoza. Patient will need left gastric artery embolization given refractory bleeding presumably from a fundus/gastric source. Given thrombocytopenia, will attempt to transfuse 2 units platelets prior to procedure. Given anemia, will attempt to transfuse blood prior to procedure. Plan for procedure in AM.
--- NOTE | 2019-02-10 03:41 | Gastroenterology Progress Note ---
Assessment and Plan - Patient Problems (1) Acute blood loss anemia Current Visit: Yes Status: Acute Plan to address problem: - Recurrent UGI bleeding ([place], [facility]) with (-) EGD x 2 for varices or obvious ulcer (both times obscured by blood) and (-) colonoscopy at [place]. - CT scan reviewed by Dr Acuna; ascites likely related to anasarca/renal disease; no convincing varices or nodular liver and spleen WNL. - Will add octreotide, and continue transfusion. - Platelets ordered from Blood Bank, and when completed, will plan embolization in [facility] [employer] [facility] this AM for likely vascular lesion. - Will plan repeat EGD based on clinical course after embolization. (2) Hepatitis C Current Visit: Yes Status: Acute Plan to address problem: - No prior treatment; recent dx. - Possible early cirrhosis (ascites, low platelets) but no gross varices on CT, and liver/spleen normal appearance per IR (despite official CT report). Subjective Date of service: 02/10/19 Principal diagnosis: GI Bleed Interval history: The patient has continued to have melena during the evening. She is awake and alert, and on a stable dose of levophed. There has been no further hematemesis. She denies abdominal pain. Her O2 sats have been 100% on 1-2L O2. Objective - Constitutional Vitals: Temp Pulse Resp BP Pulse Ox 96.4 F L 97 H 20 128/77 100 02/10/19 03:12 02/10/19 03:12 02/10/19 03:12 02/10/19 03:12 02/10/19 03:12 - EENT ENT: hearing intact, clear oral mucosa - Respiratory Respiratory effort: normal Respiratory: bilateral: CTA - Cardiovascular Rhythm: regular Heart Sounds: Present: S1 & S2 - Extremities Extremities: no ischemia, No edema - Gastrointestinal General gastrointestinal: Present: soft, non-tender, non-distended Rectal Exam: stool bloody - Labs CBC & Chem 7: 02/09/19 18:56 02/09/19 07:08 Labs: Laboratory Results - last 24 hr 02/09/19 02/09/19 02/09/19 07:08 07:08 07:08 WBC 3.8 L RBC 1.30 L Hgb 3.7 L* Hct 11.3 L* MCV 87 MCH 28 MCHC 33 RDW 16.5 H Plt Count 70 L Lymph % (Auto) 18.8 [place] % (Auto) 2.8 Eos % (Auto) 0.0 Baso % (Auto) 0.4 Lymph # 0.7 L [place] # 0.1 Eos # 0.0 Baso # 0.0 Seg Neutrophils % 78.0 H Seg Neutrophils # 2.9 PT 16.1 H INR 1.33 H APTT 34.6 Sodium 137 Potassium 4.1 Chloride 100.0 Carbon Dioxide 27 Anion Gap 14 BUN 43 H Creatinine 4.1 H Estimated GFR 14 BUN/Creatinine Ratio 10 Glucose 138 H Calcium 7.6 L Total Bilirubin 0.20 AST 24 ALT < 5 L Alkaline Phosphatase 28 L Total Protein 5.3 L Albumin 2.4 L Albumin/Globulin Ratio 0.8 Blood Type Antibody Screen Crossmatch 02/09/19 02/09/19 02/09/19 07:08 14:02 18:56 WBC 4.1 L RBC 2.16 L Hgb 6.4 L 5.9 L* Hct 18.4 L* D 18.1 L* MCV 85 MCH 30 MCHC 35 H RDW 15.8 H Plt Count 68 L Lymph % (Auto) [place] % (Auto) Eos % (Auto) Baso % (Auto) Lymph # [place] # Eos # Baso # Seg Neutrophils % Seg Neutrophils # PT INR APTT Sodium Potassium Chloride Carbon Dioxide Anion Gap BUN Creatinine Estimated GFR BUN/Creatinine Ratio Glucose Calcium Total Bilirubin AST ALT Alkaline Phosphatase Total Protein Albumin Albumin/Globulin Ratio Blood Type B POSITIVE Antibody Screen Negative Crossmatch See Detail
[2019-02-10] MEDS: SandoSTATIN 500 MCG in NACL 0.9% 100 ML IV SCH ×3 (03:43→21:15)
[2019-02-10 04:39] LABS: Hemoglobin 6.4 gm/dl (10.1-14.3)
[2019-02-10 04:45] LABS: Hematocrit 18.3 % (30.3-42.9)
[2019-02-10 04:48] LABS: INR 1.42 (0.87-1.13)
[2019-02-10] MEDS ORDERED: NACL 0.9% 250ML 250 ML ONE (07:32)
--- NOTE | 2019-02-10 08:03 | Progress Note ---
Assessment and Plan Assessment and plan: -- Acute upper GI bleeding; s/p EGD 02/09/19. - Normal esophagus, no varices. -~ 4 cm hiatal hernia, no obvious Paula-Alamo tear -Gastric fundus and greater curve of body obscured by clot and small amount of fresh blood. No active pooling or bleeding noted. -Normal antrum, cardia, and duodenum. Nothing by mouth , protonix drip, GI following IR following, scheduled for gastric artery embolization today --Severe acute blood loss anemia;s/p total 4 units PRBC today Hb 6.4, transfusing Additional 2 units PRBC this morning --thrombocytopenia;s/p platelets transfusion . --Hypovolemic shock /Hypotension; secondary to acute blood loss; Blood transfusion, IV fluids, s/p Levophed [Dced this morning] --History of hepatitis C; no evidence of cirrhosis liver on CT LFTs within normal range, no varices on EGD However patient has thrombocytopenia, coagulopathy --Ascites; moderate to large consider abdominal paracentesis --End-stage renal disease on hemodialysis; Nephrology consulted, hemodialysis per schedule --Severe malnutrition/hypoalbuminemia; nutrition supplements Supportive care, nutrition consult --DVT prophylaxis; SCD No pharmacologic anticoagulation due to GI bleeding --CODE STATUS full code Consults and recommendations noted and appreciated Monitor closely and adjust management as needed Critical care time 35 minutes History Interval history: Patient seen and examined medical records reviewed Patient's hemoglobin continues to drop even after 4 units of PRBC Thrombocytopenia is received 2 units of platelets Interventional radiologist planning gastric artery embolization today Patient is in acute distress Vital signs noted Hospitalist Physical - Constitutional Vitals: Temp Pulse Resp BP Pulse Ox 97 F L 94 H 15 138/80 100 02/10/19 04:34 02/10/19 04:34 02/10/19 04:34 02/10/19 04:34 02/10/19 04:34 General appearance: Present: mild distress, well-nourished, other (pallor) - EENT Eyes: Present: PERRL, EOM intact - Neck Neck: Present: supple, normal ROM - Respiratory Respiratory effort: normal Respiratory: bilateral: diminished, negative: rales, rhonchi, wheezing - Cardiovascular Rhythm: regular Heart Sounds: Present: S1 & S2 - Extremities Extremities: no ischemia, No edema Extremity abnormal: edema, cyanosis Peripheral Pulses: within normal limits - Abdominal General gastrointestinal: soft, non-tender, non-distended, normal bowel sounds - Integumentary Integumentary: Present: clear, warm - Psychiatric Psychiatric: appropriate mood/affect, cooperative, other (anxious) - Neurologic Neurologic: moves all extremities Results - Labs CBC & Chem 7: 02/10/19 13:34 02/10/19 13:34 Labs: Laboratory Last Values WBC 4.1 K/mm3 (4.5-11.0) L 02/09/19 14:02 RBC 2.16 M/mm3 (3.65-5.03) L 02/09/19 14:02 Hgb 6.4 gm/dl (10.1-14.3) L 02/10/19 04:00 Hct 18.3 % (30.3-42.9) L* 02/10/19 04:00 MCV 85 fl (79-97) 02/09/19 14:02 MCH 30 pg (28-32) 02/09/19 14:02 MCHC 35 % (30-34) H 02/09/19 14:02 RDW 15.8 % (13.2-15.2) H 02/09/19 14:02 Plt Count 68 K/mm3 (140-440) L 02/09/19 14:02 Lymph % (Auto) 18.8 % (13.4-35.0) 02/09/19 07:08 [place] % (Auto) 2.8 % (0.0-7.3) 02/09/19 07:08 Eos % (Auto) 0.0 % (0.0-4.3) 02/09/19 07:08 Baso % (Auto) 0.4 % (0.0-1.8) 02/09/19 07:08 Lymph # 0.7 K/mm3 (1.2-5.4) L 02/09/19 07:08 [place] # 0.1 K/mm3 (0.0-0.8) 02/09/19 07:08 Eos # 0.0 K/mm3 (0.0-0.4) 02/09/19 07:08 Baso # 0.0 K/mm3 (0.0-0.1) 02/09/19 07:08 Seg Neutrophils % 78.0 % (40.0-70.0) H 02/09/19 07:08 Seg Neutrophils # 2.9 K/mm3 (1.8-7.7) 02/09/19 07:08 PT 17.0 Sec. (12.2-14.9) H 02/10/19 04:00 INR 1.42 (0.87-1.13) H 02/10/19 04:00 APTT 34.6 Sec. (24.2-36.6) 02/09/19 07:08 Sodium 137 mmol/L (137-145) 02/09/19 07:08 Potassium 4.1 mmol/L (3.6-5.0) 02/09/19 07:08 Chloride 100.0 mmol/L (98-107) 02/09/19 07:08 Carbon Dioxide 27 mmol/L (22-30) 02/09/19 07:08 14 mmol/L 02/09/19 07:08 BUN 43 mg/dL (7-17) H 02/09/19 07:08 4.1 mg/dL (0.7-1.2) H 02/09/19 07:08 Estimated GFR 14 ml/min 02/09/19 07:08 10 % 02/09/19 07:08 Glucose 138 mg/dL (65-100) H 02/09/19 07:08 Calcium 7.6 mg/dL (8.4-10.2) L 02/09/19 07:08 0.20 mg/dL (0.1-1.2) 02/09/19 07:08 AST 24 units/L (5-40) 02/09/19 07:08 ALT < 5 units/L (7-56) L 02/09/19 07:08 28 units/L (35-129) L 02/09/19 07:08 5.3 g/dL (6.3-8.2) L 02/09/19 07:08 2.4 g/dL (3.9-5) L 02/09/19 07:08 0.8 % 02/09/19 07:08 Blood Type B POSITIVE 02/09/19 07:08 Antibody Screen Negative 02/09/19 07:08 Crossmatch See Detail 02/09/19 07:08 Active Medications - Current Medications Current Medications: Generic Name Dose Route Start Last Admin Trade Name Andry PRN Reason Stop Dose Admin Desmopressin Acetate 2 mcg 02/09/19 22:00 Ddavp IV Q12HR ROSELINE Pantoprazole Sodium 80 mg/ 100 mls @ 10 mls/hr 02/09/19 08:00 02/09/19 08:05 Sodium Chloride IV 8 mg/hr DIRECT ROSELINE 10 mls/hr Administration 8 MG/HR Norepinephrine 4 mg in 250 mls @ 7.5 mls/hr 02/09/19 09:00 02/09/19 18:23 Levophed Drip 4 Mg/Ns 250 Ml IV 4 mcg/min TITR ROSELINE 15 mls/hr Titration Protocol 2 MCG/MIN Octreotide Acetate 500 mcg/ 101 mls @ 10.1 mls/hr 02/10/19 04:00 02/10/19 03:43 Sodium Chloride IV 50 mcg/hr TITR ROSELINE 10.1 mls/hr Administration Protocol 50 MCG/HR Ondansetron HCl 4 mg 02/09/19 18:48 02/09/19 23:26 Zofran IV 4 mg Q4H PRN Administration Vomiting
[2019-02-10] MEDS ORDERED: LEVAQUIN 500MG/100ML 0 MG/0 ML BAG IV ONE (10:06)
[2019-02-10] MEDS ORDERED: NACL 0.9% 1000 ML 0 ML ONE (10:06)
[2019-02-10] MEDS ORDERED: HEPARIN/NS 5000 UNIT/500ML(CATH LAB) 1,500 ML IR ONE (10:06)
[2019-02-10] MEDS ORDERED: XYLOCAINE 2% INFILTRATI ONE (10:06)
[2019-02-10] MEDS ORDERED: NACL 0.9% 100 ML IV PRN (10:32)
--- NOTE | 2019-02-10 10:59 | Progress Note ---
Assessment and Plan Impression: * End stage renal disease on HD TTS * Upper GI bleed --EGD: Normal esophagus, no varices; 4 cm hiatal hernia, no obvious Paula- Alamo tear; gastric fundus and greater curve of body obscured by clot and small amount of fresh blood. No active pooling or bleeding noted. No antroduodenal ulcers --Abdominal u/s: mod to large ascites; unremarkable sonographic appearance of the liver --CTA Abd/Pelvis: large amt of abdominal ascites. Cirrhotic morphology of liver w/ nodular surface contour; moderate diffuse hepatic steatosis w/ focal geographic 3.7cm perfusion abnormality or focal fatty sparing * Severe anemia * Hypotension secondary to ABL * Abdominal ascities * Hepatitis C Plan: * A blood pressure seems to be better this morning. She has just been weaned off of Levophed. * Patient had a CT scan with contrast done yesterday. Going down for embolization of her gastric artery. * Plan to dialyze her today after the procedure * Transfuse pRBC per primary team * Therapeutic paracentesis per primary team * GI recommendations noted * Avoid potential nephrotoxins * Dose medications for renal function * Discussed with ICU team and Dr. Acuna Subjective Date of service: 02/10/19 Principal diagnosis: GI Bleed Interval history: Patient is comfortable this morning. Denies any shortness of breath. Has received multiple units of packed RBC. She is going down for embolization of her gastric artery. Patient continues to have melena Objective - Vital Signs Vital signs: Vital Signs - 12hr 02/09/19 02/09/19 02/09/19 23:00 23:01 23:11 Temperature 98.2 F Pulse Rate 81 48 L Respiratory 19 18 Rate Blood Pressure 163/99 143/100 O2 Sat by Pulse 100 100 Oximetry 02/09/19 02/09/19 02/09/19 23:21 23:31 23:40 Temperature Pulse Rate 54 L 46 L 47 L Respiratory 18 18 18 Rate Blood Pressure 158/98 157/93 152/100 O2 Sat by Pulse 100 100 100 Oximetry 02/09/19 02/09/19 02/10/19 23:51 23:59 00:01 Temperature 98 F Pulse Rate 52 L 97 H 49 L Respiratory 18 14 18 Rate Blood Pressure 163/95 90/70 152/100 O2 Sat by Pulse 100 100 100 Oximetry 02/10/19 02/10/19 02/10/19 00:11 00:21 00:31 Temperature Pulse Rate 71 68 59 L Respiratory 18 18 18 Rate Blood Pressure 169/91 135/90 136/88 O2 Sat by Pulse 100 100 100 Oximetry 02/10/19 02/10/19 02/10/19 00:38 00:41 00:51 Temperature 97 F L Pulse Rate 98 H 65 66 Respiratory 13 18 18 Rate Blood Pressure 106/67 134/97 142/89 O2 Sat by Pulse 100 100 100 Oximetry 02/10/19 02/10/19 02/10/19 01:01 01:21 01:33 Temperature 97 F L Pulse Rate 59 L 95 H 77 Respiratory 12 11 L 14 Rate Blood Pressure 143/96 127/67 135/93 O2 Sat by Pulse 100 100 100 Oximetry 02/10/19 02/10/19 02/10/19 01:41 01:51 02:00 Temperature Pulse Rate 65 77 77 Respiratory 14 13 14 Rate Blood Pressure 152/98 143/104 132/90 O2 Sat by Pulse 100 Oximetry 02/10/19 02/10/19 02/10/19 02:55 03:12 04:00 Temperature 97.7 F 96.4 F L Pulse Rate 97 H Respiratory 20 Rate Blood Pressure 128/77 O2 Sat by Pulse 100 100 Oximetry 02/10/19 02/10/19 02/10/19 04:34 08:00 08:18 Temperature 97 F L 97.5 F L 97.5 F L Pulse Rate 94 H 96 H Respiratory 15 15 Rate Blood Pressure 138/80 113/61 O2 Sat by Pulse 100 100 Oximetry 02/10/19 02/10/19 02/10/19 08:33 09:03 09:33 Temperature 97.7 F 97.7 F 97.5 F L Pulse Rate 89 86 85 Respiratory 15 11 L 15 Rate Blood Pressure 139/72 119/70 119/74 O2 Sat by Pulse 97 100 100 Oximetry - General Appearance General appearance: well-developed, well-nourished, appears stated age EENT: PERRL, mucous membranes moist Neck: no JVD, no thyromegaly, no carotid bruit, supple, other (right IJ PermCath in place.) Respiratory: Present: Clear to Ascultation Cardiology: regular, normal heart rate, S1S2, no murmurs Gastrointestinal: normoactive bowel sounds, distended, other (ascites present) Integumentary: other (1+ edema) - Lab 02/10/19 04:00 02/09/19 07:08 Most recent lab results Calcium 7.6 mg/dL (8.4-10.2) L 02/09/19 07:08 Medications & Allergies - Medications Allergies/Adverse Reactions: Allergies guaifenesin [From Robitussin] Allergy (Verified 02/09/19 07:00) Hives Penicillins Allergy (Verified 02/09/19 07:00) Hives Home Medications: Home Medications Medication Instructions Recorded Confirmed Last Taken Type Acetaminophen [Tylenol] 650 mg PO Q12HR PRN 02/09/19 02/09/19 Unknown History Aspirin EC 81 mg PO QDAY 02/09/19 02/09/19 Unknown History Atorvastatin [Lipitor Tab] 80 mg PO QHS 02/09/19 02/09/19 Unknown History Esomeprazole Magnesium [NexIUM] 40 mg PO Q12H 02/09/19 02/09/19 Unknown History Fluticasone [Flonase] 1 spray NS QDAY 02/09/19 02/09/19 Unknown History Lispro Insulin [HumaLOG] See Protocol SUB-Q ACHS 02/09/19 02/09/19 Unknown History Polyethylene Glycol 3350 [Miralax 17 gm PO QDAY 02/09/19 02/09/19 Unknown History 3350] Active Medications: Generic Name Dose Route Start Last Admin Trade Name Freq PRN Reason Stop Dose Admin Desmopressin Acetate 2 mcg 02/09/19 22:00 Ddavp IV Q12HR ROSELINE Epoetin Jean Carlos 20,000 unit 02/10/19 10:32 Procrit IV MARCELA PRN hemodialysis Pantoprazole Sodium 80 mg/ 100 mls @ 10 mls/hr 02/09/19 08:00 02/09/19 08:05 Sodium Chloride IV 8 mg/hr DIRECT ROSELINE 10 mls/hr Administration 8 MG/HR Norepinephrine 4 mg in 250 mls @ 7.5 mls/hr 02/09/19 09:00 02/10/19 09:25 Levophed Drip 4 Mg/Ns 250 Ml IV 0 mcg/min TITR ROSELINE 0 mls/hr Titration Protocol 2 MCG/MIN Octreotide Acetate 500 mcg/ 101 mls @ 10.1 mls/hr 02/10/19 04:00 02/10/19 03:43 Sodium Chloride IV 50 mcg/hr TITR ROSELINE 10.1 mls/hr Administration Protocol 50 MCG/HR Sodium Chloride 100 mls @ 999 mls/hr 02/10/19 10:32 Nacl 0.9% IV MARCELA PRN Hypotension Ondansetron HCl 4 mg 02/09/19 18:48 02/09/19 23:26 Zofran IV 4 mg Q4H PRN Administration Vomiting
[2019-02-10] MEDS ORDERED: NACL 0.9% 500 ML 500 ML ONE (11:08)
[2019-02-10] MEDS: SUBLIMAZE ONE ×2 (11:19→12:04)
[2019-02-10] MEDS: VERSED ONE ×2 (11:19→12:04)
[2019-02-10] MEDS ORDERED: DDAVP 20 MCG in NACL 0.9% 50 ML IV ONE (11:34)
[2019-02-10] MEDS ORDERED: GELFOAM TP ONE (11:36)
--- NOTE | 2019-02-10 11:56 | Consultation ---
History of Present Illness - Reason for Consult Consult date: 02/10/19 GI bleed Requesting physician: ARTUR GARCIA - History of Present Illness 58 y/o female admitted with GI bleed. Presenting HgB was 4. Per chart has been given 4 units of PRBC's but HgB this am was only 6.4. Currently in cath lab tech for gastric artery embolization. Past History Past Medical History: anemia, dialysis, ESRD, hepatitis (Hepatitis C ), hyperli pidemia, liver disease (Chronic HCV, schizophrenia, L cerebral infarct), stroke, other (Schizophrenia, Depression) Past Surgical History: No surgical history Social history: other ([facility] resident). denies: smoking, alcohol abuse Family history: no significant family history Medications and Allergies Allergies Allergy/AdvReac Type Severity Reaction Status Date / Time guaifenesin [From Robitussin] Allergy Hives Verified 02/09/19 07:00 Penicillins Allergy Hives Verified 02/09/19 07:00 Home Medications Medication Instructions Recorded Confirmed Last Taken Type Acetaminophen [Tylenol] 650 mg PO Q12HR PRN 02/09/19 02/09/19 Unknown History Aspirin EC 81 mg PO QDAY 02/09/19 02/09/19 Unknown History Atorvastatin [Lipitor Tab] 80 mg PO QHS 02/09/19 02/09/19 Unknown History Esomeprazole Magnesium [NexIUM] 40 mg PO Q12H 02/09/19 02/09/19 Unknown History Fluticasone [Flonase] 1 spray NS QDAY 02/09/19 02/09/19 Unknown History Lispro Insulin [HumaLOG] See Protocol SUB-Q ACHS 02/09/19 02/09/19 Unknown History Polyethylene Glycol 3350 [Miralax 17 gm PO QDAY 02/09/19 02/09/19 Unknown History 3350] Active Meds: Active Medications Desmopressin Acetate (Ddavp) 2 mcg IV Q12HR ROSELINE Epoetin Jean Carlos (Procrit) 20,000 unit IV MARCELA PRN PRN Reason: hemodialysis Pantoprazole Sodium 80 mg/ (Sodium Chloride) 100 mls @ 10 mls/hr IV DIRECT ROSELINE Last Admin: 02/09/19 08:05 Dose: 8 mg/hr, 10 mls/hr Documented by: Norepinephrine (Levophed Drip 4 Mg/Ns 250 Ml) 4 mg in 250 mls @ 7.5 mls/hr IV TITR ROSELINE; Protocol Last Titration: 02/10/19 09:25 Dose: 0 mcg/min, 0 mls/hr Documented by: Octreotide Acetate 500 mcg/ (Sodium Chloride) 101 mls @ 10.1 mls/hr IV TITR ROSELINE; Protocol Last Admin: 02/10/19 09:45 Dose: 50 mcg/hr, 10.1 mls/hr Documented by: Sodium Chloride (Nacl 0.9%) 100 mls @ 999 mls/hr IV MARCELA PRN PRN Reason: Hypotension Vancomycin HCl (Vancomycin/Ns 1 Gm/250 Ml) 1 gm in 250 mls @ 166.667 mls/hr IV PREOP NR; Protocol Stop: 02/10/19 23:59 Desmopressin Acetate 20 mcg/ (Sodium Chloride) 55 mls @ 100 mls/hr IV ONCE ONE Stop: 02/10/19 12:03 Ondansetron HCl (Zofran) 4 mg IV Q4H PRN PRN Reason: Vomiting Last Admin: 02/09/19 23:26 Dose: 4 mg Documented by: Exam - Constitutional Vitals: Temp Pulse Resp BP Pulse Ox 97.5 F L 95 H 15 119/74 100 02/10/19 09:33 02/10/19 10:00 02/10/19 09:33 02/10/19 09:33 02/10/19 09:33 Results - Labs CBC & Chem 7: 02/10/19 04:00 02/09/19 07:08 Labs: Abnormal lab results 02/09/19 02/09/19 02/09/19 Range/Units 07:08 14:02 18:56 WBC 4.1 L (4.5-11.0) K/mm3 RBC 2.16 L (3.65-5.03) M/mm3 Hgb 6.4 L 5.9 L* (10.1-14.3) gm/dl Hct 18.4 L* D 18.1 L* (30.3-42.9) % MCHC 35 H (30-34) % RDW 15.8 H (13.2-15.2) % Plt Count 68 L (140-440) K/mm3 PT (12.2-14.9) Sec. INR (0.87-1.13) Crossmatch See Detail 02/10/19 02/10/19 Range/Units 04:00 04:00 WBC (4.5-11.0) K/mm3 RBC (3.65-5.03) M/mm3 Hgb 6.4 L (10.1-14.3) gm/dl Hct 18.3 L* (30.3-42.9) % MCHC (30-34) % RDW (13.2-15.2) % Plt Count (140-440) K/mm3 PT 17.0 H (12.2-14.9) Sec. INR 1.42 H (0.87-1.13) Crossmatch Assessment and Plan 58 y/o female with GI bleed 1. Q6hour H/H's. 2. Goal should be Hgb of 7 3. Need to have Cryo ready if patient receives more than 6 units of PRBC's 4. IR for embolization 5. Thrombocytopenia, likely from consumption CCT 31 minutes
[2019-02-10] MEDS ORDERED: VANCOMYCIN/NS 1 GM/250 ML 1 GM/250 ML BAG IV NR (12:00)
--- NOTE | 2019-02-10 12:36 | Operative Report ---
Operative Report Operative Report: EXAM: 1. Ultrasound guided access of the right common femoral artery, retrograde 2. Angiography of the right lower extremity 3. Selection of the celiac artery with angiography 4. Selection of the left gastric artery with angiography 5. Gelfoam embolization of the left gastric artery 6. Coil embolization of the left gastric artery with a 4 mm x 15 cm interlock coil 7. Selection of the SMA with angiography 8. Selection of the CHELSEA with angiography 9. Closure of the right common femoral artery with a 6 Fr proglide DATE: 02/10/19 RETIREMENT SPECIALIST: MARJORIE CALIXTO MD INDICATION: 58-year-old female with end-stage renal disease with history of massive upper GI bleed recently at [facility] with blood in the stomach which was incompletely visualized with out varices noted who had massive upper GI bleed at [facility] with blood in the stomach with clot at the fundus area without evidence of varices. Request for embolization which will be an empiric left gastric artery embolization. MEDICATIONS: Please see nursing report for full details. DEVICES: Gelfoam slurry 4 mm x 15 mm interlock coil CONTRAST: Please see floating labor gang supervisor report for full details. PROCEDURE: The risks, benefits, and alternatives were discussed the patient and her family; written informed consent was obtained. The patient was brought to the angiography suite and the groins were prepped and draped in a sterile fashion. Ultrasound was used to evaluate the right common femoral artery which was patent. Under direct ultrasound guidance, the right common femoral artery was accessed with a 21-gauge micropuncture needle. 0.018 inch wire was passed into the aorta. Needle was exchanged for transitional dilator. Wire was exchanged for a 0.035 inch wire. Transitional dilator was exchanged for a 5 Swiss sheath. Digital subtraction angiography was performed demonstrating an appropriate puncture, above the bifurcation below the inferior epigastric artery. Right common femoral artery, proximal superficial femoral artery, and profunda femoral artery were patent. The right external iliac artery was patent. SOS 2 catheter was used to select the celiac artery and digital subtraction angiography was performed. There is an unusual branching pattern with a collateral arising from the celiac artery origin and passing into the marginal artery of [place]. The splenic artery and common hepatic artery were normal in appearance. There was an accessory or replaced left hepatic artery arising from the left gastric artery. The left gastric artery supplied the fundus of the stomach. Microcatheter with a choice PT floppy wire were passed coaxially through the base catheter used to select the left gastric artery and digital subtraction angiography was performed demonstrating the left gastric artery and the replaced/accessory left hepatic artery. The left gastric artery was selected distal to the left hepatic artery takeoff. Digital subtraction angiography was performed demonstrating typical gastric mucosal enhancement. Gelfoam embolization was performed until stasis was achieved. Careful attention was paid to prevent reflux into the left hepatic artery. Afterwards, 4 mm x 15 mm interlock coil was used to coil the left gastric artery distal to the takeoff of the accessory/replaced left hepatic artery. Digital subtraction angiography was performed confirming stasis in the vessel. Microcatheter was removed and base catheter was then aspirated. Base catheter was then used to select the SMA and digital subtraction angiography was performed demonstrating a normal SMA branching pattern. No extravasation or pseudoaneurysm. The catheter was used to select the CHELSEA and digital subtraction angiography was performed demonstrating no extravasation or pseudoaneurysm. Base catheter was removed over 0.035 inch wire and that's sheath was exchanged for 6 Swiss Pro-glide which was used to close the arteriotomy achieving near immediate hemostasis. Pressure dressing applied. Sterile dressing applied. Patient tolerated the procedure well. No immediate postprocedural complication. FINDINGS: Please see procedure note above. IMPRESSION: 1. Successful embolization of the left gastric artery. 2. Successful selection of the left gastric artery, SMA, and CHELSEA with angiography. 3. Successful ultrasound-guided access and closure of the right common femoral artery.
--- NOTE | 2019-02-10 12:47 | Post Operative Note ---
Date of procedure: 02/10/19 Pre-op diagnosis: Massive GI bleed Post-op diagnosis: same Findings: Left gastric artery embolization performed empirically ; 20 mcg DDAVP administered at the conclusion of the procedure. Procedure: 1. Ultrasound guided access of the right common femoral artery, retrograde 2. Angiography of the right lower extremity 3. Selection of the celiac artery with angiography 4. Selection of the left gastric artery with angiography 5. Gelfoam embolization of the left gastric artery 6. Coil embolization of the left gastric artery with a 4 mm x 15 cm interlock coil 7. Selection of the SMA with angiography 8. Selection of the CHELSEA with angiography 9. Closure of the right common femoral artery with a 6 Fr proglide Anesthesia: local (w/ conscious sedation) Surgeon: MARJORIE CALIXTO Estimated blood loss: minimal Condition: stable Disposition: ICU
[2019-02-10 13:56] LABS: Basophils % (Auto) 0.6 % (0.0-1.8); Hematocrit 25.1 % (30.3-42.9); Hemoglobin 8.6 gm/dl (10.1-14.3); INR 1.35 (0.87-1.13); Lymphocytes # (Auto) 0.7 K/mm3 (1.2-5.4); Lymphocytes % (Auto) 12.4 % (13.4-35.0); Mean Corpuscular HGB Conc 34 % (30-34); Mean Corpuscular Volume 90 fl (79-97); Monocytes # (Auto) 0.2 K/mm3 (0.0-0.8); Monocytes % (Auto) 3.6 % (0.0-7.3); Platelet Count 116 K/mm3 (140-440); Red Blood Count 2.81 M/mm3 (3.65-5.03); Red Cell Distribution Width 14.7 % (13.2-15.2)
[2019-02-10 13:57] LABS: Partial Thromboplastin Time 39.6 Sec. (24.2-36.6)
[2019-02-10 14:10] LABS: Albumin 2.5 g/dL (3.9-5); BUN/Creatinine Ratio 14; Blood Urea Nitrogen 57 mg/dL (7-17); Calcium 7.4 mg/dL (8.4-10.2); Hemolysis Index 4
[2019-02-10 14:14] LABS: Alanine Aminotransferase < 5 units/L (7-56)
[2019-02-10] MEDS: PROTONIX 80 MG in NACL 0.9% 100 ML IV SCH ×2 (14:27→23:51)
[2019-02-10] MEDS: DDAVP IV SCH ×2 (15:16→23:52)
[2019-02-10 15:37] LABS: Hepatitis B Surface Antigen Non-Reactive (Negative); Hepatitis C Virus Antibody Non-Reactive (NonReactive)
--- NOTE | 2019-02-10 15:41 | Event Note ---
Date: 02/10/19 IR evaluated the patient and pt underwent Left gastric artery embolization and 20 mcg DDAVP administered at the conclusion of the procedure. Patient tolerated the procedure well. Closely monitor clinically, monitor H&H and watch for GI bleeding. Patient's condition and treatment plan details of different procedures that were done, consulted for recommendation Discussed with patient's mother and daughter in detail. They had numerous questions answered all of them Plan of care reviewed with the patient's nurse Total Critical care time 45 minutes
[2019-02-10] MEDS: PROCRIT IV PRN (16:02)
[2019-02-10] MEDS ORDERED: MORPHINE IV PRN (17:03)
[2019-02-10 19:03] LABS: Hematocrit 24.8 % (30.3-42.9); Hemoglobin 8.7 gm/dl (10.1-14.3)
[2019-02-10] MEDS ORDERED: ATIVAN IV ONE (19:56)
[2019-02-10] MEDS: NACL 0.9% 1000 ML 1,000 ML IV SCH (20:57)
[2019-02-10] MEDS: HumaLOG SUB-Q SCH (22:00)
[2019-02-11] MEDS: DDAVP IV SCH ×3 (01:00→22:10)
[2019-02-11 05:54] LABS: Basophils % (Auto) 0.6 % (0.0-1.8); Hematocrit 24.7 % (30.3-42.9); Hemoglobin 8.7 gm/dl (10.1-14.3); Lymphocytes # (Auto) 0.4 K/mm3 (1.2-5.4); Lymphocytes % (Auto) 7.8 % (13.4-35.0); Mean Corpuscular HGB Conc 35 % (30-34); Mean Corpuscular Volume 89 fl (79-97); Monocytes # (Auto) 0.2 K/mm3 (0.0-0.8); Red Blood Count 2.78 M/mm3 (3.65-5.03); Red Cell Distribution Width 14.8 % (13.2-15.2)
[2019-02-11 06:00] LABS: Platelet Count 94 K/mm3 (140-440)
[2019-02-11 06:23] LABS: Albumin 2.9 g/dL (3.9-5); BUN/Creatinine Ratio 12; Blood Urea Nitrogen 41 mg/dL (7-17); Calcium 7.9 mg/dL (8.4-10.2); Hemolysis Index 2
[2019-02-11 06:24] LABS: Alanine Aminotransferase < 5 units/L (7-56)
[2019-02-11] MEDS: SandoSTATIN 500 MCG in NACL 0.9% 100 ML IV SCH (08:41)
[2019-02-11] MEDS: PROTONIX 80 MG in NACL 0.9% 100 ML IV SCH ×2 (09:12→20:37)
--- NOTE | 2019-02-11 09:50 | Progress Note ---
Assessment and Plan Assessment and plan: -- Acute upper GI bleeding; 02/10/19 s/p Left gastric artery embolization and 20 mcg DDAVP administered at the conclusion of the procedure. Patient tolerated the procedure well. 02/09/19.s/p EGD Normal esophagus, no varices. 4 cm hiatal hernia, no obvious Paula-Alamo tear Gastric fundus and greater curve of body obscured by clot and small amount of fresh blood. No active pooling or bleeding noted. Normal antrum, cardia, and duodenum. Nothing by mouth , protonix drip, GI following --Severe acute blood loss anemia;s/p total 6 units PRBC today Hb 8.7, monitor H&H and transfuse as needed H&H --Thrombocytopenia;s/p platelets transfusion . --Hypovolemic shock /Hypotension; secondary to acute blood loss; Blood transfusion, IV fluids, s/p Levophed [Dced this morning] --History of hepatitis C; no evidence of cirrhosis liver on CT LFTs within normal range, no varices on EGD However patient has thrombocytopenia, coagulopathy --Ascites; moderate to large consider abdominal paracentesis --End-stage renal disease on hemodialysis; Nephrology following hemodialysis per schedule --Severe malnutrition/hypoalbuminemia; nutrition supplements Supportive care, nutrition consult --DVT prophylaxis; SCD No pharmacologic anticoagulation due to GI bleeding --CODE STATUS full code Consults and recommendations noted and appreciated Monitor closely and adjust management as needed Critical care time 36 minutes The patient is stable to be transferred to [facility] History Interval history: Patient seen and examined medical records reviewed Patient did not have any drop in H&H, no evidence of active bleeding Off Levophed blood pressures are reasonable level The patient is alert and awake Vital signs reviewed Hospitalist Physical - Constitutional Vitals: Temp Pulse Resp BP Pulse Ox 98.4 F 68 8 L 123/77 99 02/11/19 03:32 02/11/19 07:15 02/11/19 07:15 02/11/19 07:15 02/11/19 07:38 General appearance: Present: no acute distress, cachectic, disheveled - EENT Eyes: Present: PERRL, EOM intact - Neck Neck: Present: supple, normal ROM - Respiratory Respiratory effort: normal Respiratory: bilateral: diminished, negative: rales, rhonchi, wheezing - Cardiovascular Rhythm: regular Heart Sounds: Present: S1 & S2 - Extremities Extremities: no ischemia, No edema - Abdominal General gastrointestinal: soft, non-tender, non-distended, normal bowel sounds - Integumentary Integumentary: Present: clear, warm - Psychiatric Psychiatric: other - Neurologic Neurologic: moves all extremities (minimally communicative) Results - Labs CBC & Chem 7: 02/11/19 05:35 02/11/19 05:35 Labs: Laboratory Last Values WBC 5.5 K/mm3 (4.5-11.0) 02/11/19 05:35 RBC 2.78 M/mm3 (3.65-5.03) L 02/11/19 05:35 Hgb 8.7 gm/dl (10.1-14.3) L 02/11/19 05:35 Hct 24.7 % (30.3-42.9) L 02/11/19 05:35 MCV 89 fl (79-97) 02/11/19 05:35 MCH 31 pg (28-32) 02/11/19 05:35 MCHC 35 % (30-34) H 02/11/19 05:35 RDW 14.8 % (13.2-15.2) 02/11/19 05:35 Plt Count 94 K/mm3 (140-440) L 02/11/19 05:35 Lymph % (Auto) 7.8 % (13.4-35.0) L 02/11/19 05:35 [place] % (Auto) 3.0 % (0.0-7.3) 02/11/19 05:35 Eos % (Auto) 0.0 % (0.0-4.3) 02/11/19 05:35 Baso % (Auto) 0.6 % (0.0-1.8) 02/11/19 05:35 Lymph # 0.4 K/mm3 (1.2-5.4) L 02/11/19 05:35 [place] # 0.2 K/mm3 (0.0-0.8) 02/11/19 05:35 Eos # 0.0 K/mm3 (0.0-0.4) 02/11/19 05:35 Baso # 0.0 K/mm3 (0.0-0.1) 02/11/19 05:35 Seg Neutrophils % 88.6 % (40.0-70.0) H 02/11/19 05:35 Seg Neutrophils # 4.8 K/mm3 (1.8-7.7) 02/11/19 05:35 PT 16.3 Sec. (12.2-14.9) H 02/10/19 13:34 INR 1.35 (0.87-1.13) H 02/10/19 13:34 APTT 39.6 Sec. (24.2-36.6) H 02/10/19 13:34 150 mg/dl (211-480) L 02/10/19 13:34 Sodium 137 mmol/L (137-145) 02/11/19 05:35 Potassium 3.7 mmol/L (3.6-5.0) 02/11/19 05:35 Chloride 98.6 mmol/L (98-107) 02/11/19 05:35 Carbon Dioxide 27 mmol/L (22-30) 02/11/19 05:35 15 mmol/L 02/11/19 05:35 BUN 41 mg/dL (7-17) H 02/11/19 05:35 3.5 mg/dL (0.7-1.2) H 02/11/19 05:35 Estimated GFR 16 ml/min 02/11/19 05:35 12 % 02/11/19 05:35 Glucose 133 mg/dL (65-100) H 02/11/19 05:35 POC Glucose 129 (70-105) H 02/11/19 08:55 Calcium 7.9 mg/dL (8.4-10.2) L 02/11/19 05:35 0.60 mg/dL (0.1-1.2) 02/11/19 05:35 AST 14 units/L (5-40) 02/11/19 05:35 ALT < 5 units/L (7-56) L 02/11/19 05:35 32 units/L (35-129) L 02/11/19 05:35 5.7 g/dL (6.3-8.2) L 02/11/19 05:35 2.9 g/dL (3.9-5) L 02/11/19 05:35 1.0 % 02/11/19 05:35 Hepatitis A IgM Ab Non-reactive (NonReactive) 02/10/19 14:34 Hep Bs Antigen Non-reactive (Negative) 02/10/19 14:34 Hep B Core IgM Ab Non-reactive (NonReactive) 02/10/19 14:34 Non-reactive (NonReactive) 02/10/19 14:34 Blood Type B POSITIVE 02/09/19 07:08 Antibody Screen Negative 02/09/19 07:08 Crossmatch See Detail 02/09/19 07:08 Active Medications - Current Medications Current Medications: Generic Name Dose Route Start Last Admin Trade Name Freq PRN Reason Stop Dose Admin Desmopressin Acetate 2 mcg 02/09/19 22:00 02/11/19 01:00 Ddavp IV 2 mcg Q12HR ROSELINE Administration Epoetin Jean Carlos 20,000 unit 02/10/19 10:32 02/10/19 16:02 Procrit IV 20,000 unit MARCELA PRN Administration hemodialysis Pantoprazole Sodium 80 mg/ 100 mls @ 10 mls/hr 02/09/19 08:00 02/11/19 09:12 Sodium Chloride IV 8 mg/hr DIRECT ROSELINE 10 mls/hr Administration 8 MG/HR Norepinephrine 4 mg in 250 mls @ 7.5 mls/hr 02/09/19 09:00 02/10/19 09:25 Levophed Drip 4 Mg/Ns 250 Ml IV 0 mcg/min TITR ROSELINE 0 mls/hr Titration Protocol 2 MCG/MIN Octreotide Acetate 500 mcg/ 101 mls @ 10.1 mls/hr 02/10/19 04:00 02/11/19 08:41 Sodium Chloride IV 50 mcg/hr TITR ROSELINE 10.1 mls/hr Administration Protocol 50 MCG/HR Sodium Chloride 100 mls @ 999 mls/hr 02/10/19 10:32 Nacl 0.9% IV MARCELA PRN Hypotension Sodium Chloride 1,000 mls @ 75 mls/hr 02/10/19 18:00 02/10/19 20:57 Nacl 0.9% 1000 Ml IV 75 mls/hr DIRECT ROSELINE Administration Insulin Human Lispro 0 unit 02/10/19 22:00 02/10/19 22:00 Humalog SUB-Q Not Given ACHS ROSELINE Protocol Morphine Sulfate 2 mg 02/10/19 17:03 02/11/19 05:20 Morphine IV 2 mg Q4H PRN Administration Pain, Moderate (4-6) Ondansetron HCl 4 mg 02/09/19 18:48 02/09/19 23:26 Zofran IV 4 mg Q4H PRN Administration Vomiting Nutrition/Malnutrition Assess - Dietary Evaluation Nutrition/Malnutrition Findings: Nutrition Notes Start: 02/10/19 15:16 Freq: Status: Active Protocol: Document 02/10/19 15:17 RM (Rec: 02/10/19 15:22 RM [id number]) Nutrition Notes Need for Assessment generated from: MD Order Initial or Follow up Assessment Other Pertinent Diagnosis ESRD on HD, Hep C, Hx GI bleed , Ascites Current Diet Clear liquid Labs/Tests Reviewed Pertinent Medications Reviewed Height 5 ft 3 in Weight 58.967 kg [place] Body Weight (kg) 52.27 BMI 23.0 Subjective/Other Information Consulted for malnutrition. Pt not in room at time of visit. Burn Absent Trauma Absent #1 Nutrition Diagnosis Inadequate oral intake Etiology Hx GI bleed, ascites As Evidenced by Signs and Symptoms pt on clear liquid diet Is patient on ventilator? No Is Patient Ambulatory and/or Out of Bed Yes REE-([facility]-ambulatory/OOB) [ [id number]] Calculation Used for Recommendations [facility] Additional Notes Protein Needs: 71-118g (1.2-2g /kg) Fluid Needs: 1 ml/kcal Nutrition Intervention Change Diet Order: Advance diet when medically able Add Supplement/Snack (indicate name/kcal Ensure Clear 1 daily /protein ) Provides kCal: 240 Provides Protein (gm) 10 Goal #1 Diet advancement Anticipated Discharge Needs: Unable to determine at this time Follow-Up By: 02/12/19 Additional Comments Follow for PO and ONS intakes, diet advancement, malnutrition assessment
[2019-02-11] MEDS: HumaLOG SUB-Q SCH ×4 (10:12→22:09)
[2019-02-11] MEDS: NACL 0.9% 1000 ML 1,000 ML IV SCH ×2 (10:24→22:09)
--- NOTE | 2019-02-11 11:32 | Progress Note ---
Assessment and Plan 58 y/o female with GI bleed 1. Can likely go to q12 vs daily H/H's. 2. Goal should be Hgb of 7 3. No need for cryo at this time 4. Drop in platelets hopefully transient and not that bleeding is stopped, should start to increase but suggest daily monitoring. 5. Stable for transfer to floor. Cannot wait for GI evaluation as we need the bed for a code blue from the floor. Hemodynamically she is stable. Subjective Date of service: 02/11/19 Principal diagnosis: GI Bleed Interval history: No acute events. Had successful embolization on yesterday. HgB has been stable overnight. Objective - Constitutional Vitals: Vital Signs - 12hr 02/10/19 02/10/19 02/11/19 23:30 23:45 00:00 Temperature Pulse Rate 67 68 69 Pulse Rate [ 68 From Monitor] Respiratory 11 L 10 L 14 Rate Blood Pressure 111/74 111/74 111/75 O2 Sat by Pulse 100 100 100 Oximetry 02/11/19 02/11/19 02/11/19 00:15 00:30 00:45 Temperature Pulse Rate 68 68 72 Pulse Rate [ From Monitor] Respiratory 12 10 L 9 L Rate Blood Pressure 103/62 106/60 113/66 O2 Sat by Pulse 99 97 97 Oximetry 02/11/19 02/11/19 02/11/19 01:00 01:15 01:30 Temperature Pulse Rate 68 69 69 Pulse Rate [ From Monitor] Respiratory 11 L 10 L 10 L Rate Blood Pressure 121/64 113/66 109/62 O2 Sat by Pulse 98 98 99 Oximetry 02/11/19 02/11/19 02/11/19 01:45 02:00 02:15 Temperature Pulse Rate 69 71 71 Pulse Rate [ From Monitor] Respiratory 11 L 11 L 10 L Rate Blood Pressure 121/64 121/74 113/72 O2 Sat by Pulse 100 100 97 Oximetry 02/11/19 02/11/19 02/11/19 02:31 02:45 03:01 Temperature Pulse Rate 73 70 74 Pulse Rate [ From Monitor] Respiratory 9 L 9 L 10 L Rate Blood Pressure 117/70 113/72 118/78 O2 Sat by Pulse 98 100 94 Oximetry 02/11/19 02/11/19 02/11/19 03:15 03:30 03:32 Temperature 98.4 F Pulse Rate Pulse Rate [ From Monitor] Respiratory Rate Blood Pressure 119/65 131/71 O2 Sat by Pulse 99 100 Oximetry 02/11/19 02/11/19 02/11/19 03:45 04:00 04:15 Temperature Pulse Rate 73 72 Pulse Rate [ 73 From Monitor] Respiratory 11 L 12 Rate Blood Pressure 134/83 132/77 132/77 O2 Sat by Pulse 100 100 98 Oximetry 02/11/19 02/11/19 02/11/19 04:30 04:45 05:01 Temperature Pulse Rate 72 72 Pulse Rate [ From Monitor] Respiratory 9 L 9 L Rate Blood Pressure 127/62 130/79 114/67 O2 Sat by Pulse 99 100 100 Oximetry 02/11/19 02/11/19 02/11/19 05:15 05:30 05:45 Temperature Pulse Rate 75 68 67 Pulse Rate [ From Monitor] Respiratory 11 L 10 L 8 L Rate Blood Pressure 114/67 109/62 117/70 O2 Sat by Pulse 100 97 99 Oximetry 02/11/19 02/11/19 02/11/19 06:00 06:15 06:30 Temperature Pulse Rate 67 68 69 Pulse Rate [ From Monitor] Respiratory 9 L 9 L 12 Rate Blood Pressure 125/76 130/76 120/64 O2 Sat by Pulse 98 100 98 Oximetry 02/11/19 02/11/19 02/11/19 06:45 07:00 07:15 Temperature Pulse Rate 70 69 68 Pulse Rate [ From Monitor] Respiratory 10 L 9 L 8 L Rate Blood Pressure 132/77 122/76 123/77 O2 Sat by Pulse 100 100 100 Oximetry 02/11/19 02/11/19 02/11/19 07:30 07:38 07:45 Temperature Pulse Rate 68 68 Pulse Rate [ From Monitor] Respiratory 8 L 8 L Rate Blood Pressure 112/82 112/82 O2 Sat by Pulse 100 99 100 Oximetry 02/11/19 02/11/19 02/11/19 08:00 08:15 08:30 Temperature 94.5 F L Pulse Rate 68 69 70 Pulse Rate [ 68 From Monitor] Respiratory 9 L 8 L 8 L Rate Blood Pressure 127/71 119/72 129/76 O2 Sat by Pulse 100 100 100 Oximetry 02/11/19 02/11/19 02/11/19 08:45 09:00 09:15 Temperature Pulse Rate 69 72 71 Pulse Rate [ From Monitor] Respiratory 10 L 9 L 9 L Rate Blood Pressure 130/79 134/74 125/74 O2 Sat by Pulse 100 100 100 Oximetry 02/11/19 02/11/19 09:31 09:45 Temperature Pulse Rate 72 70 Pulse Rate [ From Monitor] Respiratory 9 L 8 L Rate Blood Pressure 128/73 116/74 O2 Sat by Pulse 100 100 Oximetry General appearance: Present: no acute distress, other (asleep) - Respiratory Respiratory effort: normal Respiratory: bilateral: CTA - Cardiovascular Rhythm: regular Heart Sounds: Present: S1 & S2 - Labs CBC & Chem 7: 02/11/19 05:35 02/11/19 05:35 Labs: Abnormal lab results 02/09/19 02/10/19 02/10/19 Range/Units 07:08 13:34 13:34 RBC 2.81 L (3.65-5.03) M/mm3 Hgb 8.6 L (10.1-14.3) gm/dl Hct 25.1 L D (30.3-42.9) % MCHC (30-34) % Plt Count 116 L (140-440) K/mm3 Lymph % (Auto) 12.4 L (13.4-35.0) % Lymph # 0.7 L (1.2-5.4) K/mm3 Seg Neutrophils % 83.4 H (40.0-70.0) % PT (12.2-14.9) Sec. INR (0.87-1.13) APTT (24.2-36.6) Sec. Fibrinogen (211-480) mg/dl BUN 57 H (7-17) mg/dL Creatinine 4.2 H (0.7-1.2) mg/dL Glucose 130 H (65-100) mg/dL POC Glucose (70-105) Calcium 7.4 L (8.4-10.2) mg/dL ALT < 5 L (7-56) units/L Alkaline Phosphatase 29 L (35-129) units/L Total Protein 5.1 L (6.3-8.2) g/dL Albumin 2.5 L (3.9-5) g/dL Crossmatch See Detail 02/10/19 02/10/19 02/10/19 Range/Units 13:34 18:38 21:28 RBC (3.65-5.03) M/mm3 Hgb 8.7 L (10.1-14.3) gm/dl Hct 24.8 L (30.3-42.9) % MCHC (30-34) % Plt Count (140-440) K/mm3 Lymph % (Auto) (13.4-35.0) % Lymph # (1.2-5.4) K/mm3 Seg Neutrophils % (40.0-70.0) % PT 16.3 H (12.2-14.9) Sec. INR 1.35 H (0.87-1.13) APTT 39.6 H (24.2-36.6) Sec. Fibrinogen 150 L (211-480) mg/dl BUN (7-17) mg/dL Creatinine (0.7-1.2) mg/dL Glucose (65-100) mg/dL POC Glucose 142 H (70-105) Calcium (8.4-10.2) mg/dL ALT (7-56) units/L Alkaline Phosphatase (35-129) units/L Total Protein (6.3-8.2) g/dL Albumin (3.9-5) g/dL Crossmatch 02/11/19 02/11/19 02/11/19 Range/Units 05:35 05:35 08:55 RBC 2.78 L (3.65-5.03) M/mm3 Hgb 8.7 L (10.1-14.3) gm/dl Hct 24.7 L (30.3-42.9) % MCHC 35 H (30-34) % Plt Count 94 L (140-440) K/mm3 Lymph % (Auto) 7.8 L (13.4-35.0) % Lymph # 0.4 L (1.2-5.4) K/mm3 Seg Neutrophils % 88.6 H (40.0-70.0) % PT (12.2-14.9) Sec. INR (0.87-1.13) APTT (24.2-36.6) Sec. Fibrinogen (211-480) mg/dl BUN 41 H (7-17) mg/dL Creatinine 3.5 H (0.7-1.2) mg/dL Glucose 133 H (65-100) mg/dL POC Glucose 129 H (70-105) Calcium 7.9 L (8.4-10.2) mg/dL ALT < 5 L (7-56) units/L Alkaline Phosphatase 32 L (35-129) units/L Total Protein 5.7 L (6.3-8.2) g/dL Albumin 2.9 L (3.9-5) g/dL Crossmatch Medications & Allergies - Medications Allergies/Adverse Reactions: Allergies guaifenesin [From Robitussin] Allergy (Verified 02/09/19 07:00) Hives Penicillins Allergy (Verified 02/09/19 07:00) Hives Home Medications: Home Medications Medication Instructions Recorded Confirmed Last Taken Type Acetaminophen [Tylenol] 650 mg PO Q12HR PRN 02/09/19 02/09/19 Unknown History Aspirin EC 81 mg PO QDAY 02/09/19 02/09/19 Unknown History Atorvastatin [Lipitor Tab] 80 mg PO QHS 02/09/19 02/09/19 Unknown History Esomeprazole Magnesium [NexIUM] 40 mg PO Q12H 02/09/19 02/09/19 Unknown History Fluticasone [Flonase] 1 spray NS QDAY 02/09/19 02/09/19 Unknown History Lispro Insulin [HumaLOG] See Protocol SUB-Q ACHS 02/09/19 02/09/19 Unknown History Polyethylene Glycol 3350 [Miralax 17 gm PO QDAY 02/09/19 02/09/19 Unknown History 3350] Active Medications: Generic Name Dose Route Start Last Admin Trade Name Freq PRN Reason Stop Dose Admin Desmopressin Acetate 2 mcg 02/09/19 22:00 02/11/19 10:19 Ddavp IV 2 mcg Q12HR ROSELINE Administration Epoetin Jean Carlos 20,000 unit 02/10/19 10:32 02/10/19 16:02 Procrit IV 20,000 unit MARCELA PRN Administration hemodialysis Pantoprazole Sodium 80 mg/ 100 mls @ 10 mls/hr 02/09/19 08:00 02/11/19 09:12 Sodium Chloride IV 8 mg/hr DIRECT ROSELINE 10 mls/hr Administration 8 MG/HR Norepinephrine 4 mg in 250 mls @ 7.5 mls/hr 02/09/19 09:00 02/10/19 09:25 Levophed Drip 4 Mg/Ns 250 Ml IV 0 mcg/min TITR ROSELINE 0 mls/hr Titration Protocol 2 MCG/MIN Octreotide Acetate 500 mcg/ 101 mls @ 10.1 mls/hr 02/10/19 04:00 02/11/19 0 8:41 Sodium Chloride IV 50 mcg/hr TITR ROSELINE 10.1 mls/hr Administration Protocol 50 MCG/HR Sodium Chloride 100 mls @ 999 mls/hr 02/10/19 10:32 Nacl 0.9% IV MARCELA PRN Hypotension Sodium Chloride 1,000 mls @ 75 mls/hr 02/10/19 18:00 02/11/19 10:24 Nacl 0.9% 1000 Ml IV 75 mls/hr DIRECT ROSELINE Administration Insulin Human Lispro 0 unit 02/10/19 22:00 02/11/19 10:12 Humalog SUB-Q Not Given ACHS ROSELINE Protocol Morphine Sulfate 2 mg 02/10/19 17:03 02/11/19 05:20 Morphine IV 2 mg Q4H PRN Administration Pain, Moderate (4-6) Ondansetron HCl 4 mg 02/09/19 18:48 02/09/19 23:26 Zofran IV 4 mg Q4H PRN Administration Vomiting
[2019-02-11] MEDS ORDERED: NACL 0.9% 100 ML IV PRN (11:33)
--- NOTE | 2019-02-11 11:33 | Progress Note ---
Assessment and Plan Impression: * End stage renal disease on HD TTS * Upper GI bleed --EGD: Normal esophagus, no varices; 4 cm hiatal hernia, no obvious [place]- [place] tear; gastric fundus and greater curve of body obscured by clot and small amount of fresh blood. No active pooling or bleeding noted. No antroduodenal ulcers --Abdominal u/s: mod to large ascites; unremarkable sonographic appearance of the liver --CTA Abd/Pelvis: large amt of abdominal ascites. Cirrhotic morphology of liver w/ nodular surface contour; moderate diffuse hepatic steatosis w/ focal geographic 3.7cm perfusion abnormality or focal fatty sparing * Severe anemia * Hypotension secondary to ABL * Abdominal ascities * Hepatitis C Plan: * Uneventful hemodialysis yesterday. 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 * Plan to dialyze her again tomorrow if stable * Transfuse pRBC per primary team * Therapeutic paracentesis per primary team * Further planus by GI services and vascular surgery * Avoid potential nephrotoxins * Dose medications for renal function * Discussed with patient's mother and sister at bedside Subjective Date of service: 02/11/19 Principal diagnosis: GI Bleed Interval history: Patient is status post embolization of her gastric artery. Uneventful hemodialysis thereafter. Currently on a warming blanket. Denies any shortness of breath. Denies any nausea or vomiting Objective - Vital Signs Vital signs: Vital Signs - 12hr 02/10/19 02/11/19 02/11/19 23:45 00:00 00:15 Temperature Pulse Rate 68 69 68 Pulse Rate [ 68 From Monitor] Respiratory 10 L 14 12 Rate Blood Pressure 111/74 111/75 103/62 O2 Sat by Pulse 100 100 99 Oximetry 02/11/19 02/11/19 02/11/19 00:30 00:45 01:00 Temperature Pulse Rate 68 72 68 Pulse Rate [ From Monitor] Respiratory 10 L 9 L 11 L Rate Blood Pressure 106/60 113/66 121/64 O2 Sat by Pulse 97 97 98 Oximetry 02/11/19 02/11/19 02/11/19 01:15 01:30 01:45 Temperature Pulse Rate 69 69 69 Pulse Rate [ From Monitor] Respiratory 10 L 10 L 11 L Rate Blood Pressure 113/66 109/62 121/64 O2 Sat by Pulse 98 99 100 Oximetry 02/11/19 02/11/19 02/11/19 02:00 02:15 02:31 Temperature Pulse Rate 71 71 73 Pulse Rate [ From Monitor] Respiratory 11 L 10 L 9 L Rate Blood Pressure 121/74 113/72 117/70 O2 Sat by Pulse 100 97 98 Oximetry 02/11/19 02/11/19 02/11/19 02:45 03:01 03:15 Temperature Pulse Rate 70 74 Pulse Rate [ From Monitor] Respiratory 9 L 10 L Rate Blood Pressure 113/72 118/78 119/65 O2 Sat by Pulse 100 94 99 Oximetry 02/11/19 02/11/19 02/11/19 03:30 03:32 03:45 Temperature 98.4 F Pulse Rate Pulse Rate [ From Monitor] Respiratory Rate Blood Pressure 131/71 134/83 O2 Sat by Pulse 100 100 Oximetry 02/11/19 02/11/19 02/11/19 04:00 04:15 04:30 Temperature Pulse Rate 73 72 72 Pulse Rate [ 73 From Monitor] Respiratory 11 L 12 9 L Rate Blood Pressure 132/77 132/77 127/62 O2 Sat by Pulse 100 98 99 Oximetry 02/11/19 02/11/19 02/11/19 04:45 05:01 05:15 Temperature Pulse Rate 72 75 Pulse Rate [ From Monitor] Respiratory 9 L 11 L Rate Blood Pressure 130/79 114/67 114/67 O2 Sat by Pulse 100 100 100 Oximetry 02/11/19 02/11/19 02/11/19 05:30 05:45 06:00 Temperature Pulse Rate 68 67 67 Pulse Rate [ From Monitor] Respiratory 10 L 8 L 9 L Rate Blood Pressure 109/62 117/70 125/76 O2 Sat by Pulse 97 99 98 Oximetry 02/11/19 02/11/19 02/11/19 06:15 06:30 06:45 Temperature Pulse Rate 68 69 70 Pulse Rate [ From Monitor] Respiratory 9 L 12 10 L Rate Blood Pressure 130/76 120/64 132/77 O2 Sat by Pulse 100 98 100 Oximetry 02/11/19 02/11/19 02/11/19 07:00 07:15 07:30 Temperature Pulse Rate 69 68 68 Pulse Rate [ From Monitor] Respiratory 9 L 8 L 8 L Rate Blood Pressure 122/76 123/77 112/82 O2 Sat by Pulse 100 100 100 Oximetry 02/11/19 02/11/1919 07:38 07:45 08:00 Temperature 94.5 F L Pulse Rate 68 68 Pulse Rate [ 68 From Monitor] Respiratory 8 L 9 L Rate Blood Pressure 112/82 127/71 O2 Sat by Pulse 99 100 100 Oximetry 02/11/19 02/11/19 02/11/19 08:15 08:30 08:45 Temperature Pulse Rate 69 70 69 Pulse Rate [ From Monitor] Respiratory 8 L 8 L 10 L Rate Blood Pressure 119/72 129/76 130/79 O2 Sat by Pulse 100 100 100 Oximetry 02/11/19 02/11/19 02/11/19 09:00 09:15 09:31 Temperature Pulse Rate 72 71 72 Pulse Rate [ From Monitor] Respiratory 9 L 9 L 9 L Rate Blood Pressure 134/74 125/74 128/73 O2 Sat by Pulse 100 100 100 Oximetry 02/11/19 09:45 Temperature Pulse Rate 70 Pulse Rate [ From Monitor] Respiratory 8 L Rate Blood Pressure 116/74 O2 Sat by Pulse 100 Oximetry - General Appearance General appearance: well-developed, well-nourished, appears stated age EENT: PERRL, mucous membranes moist Neck: no JVD, no thyromegaly, no carotid bruit, supple, other (right IJ PermCath in place) Respiratory: Present: Clear to Ascultation Cardiology: regular, normal heart rate, S1S2, no murmurs Gastrointestinal: normal, normoactive bowel sounds, distended, other (ascites present) Integumentary: other (1+ edema) - Lab 02/11/19 05:35 02/11/19 05:35 Most recent lab results Calcium 7.9 mg/dL (8.4-10.2) L 02/11/19 05:35 Medications & Allergies - Medications Allergies/Adverse Reactions: Allergies guaifenesin [From Robitussin] Allergy (Verified 02/09/19 07:00) Hives Penicillins Allergy (Verified 02/09/19 07:00) Hives Home Medications: Home Medications Medication Instructions Recorded Confirmed Last Taken Type Acetaminophen [Tylenol] 650 mg PO Q12HR PRN 02/09/19 02/09/19 Unknown History Aspirin EC 81 mg PO QDAY 02/09/19 02/09/19 Unknown History Atorvastatin [Lipitor Tab] 80 mg PO QHS 02/09/19 02/09/19 Unknown History Esomeprazole Magnesium [NexIUM] 40 mg PO Q12H 02/09/19 02/09/19 Unknown History Fluticasone [Flonase] 1 spray NS QDAY 02/09/19 02/09/19 Unknown History Lispro Insulin [HumaLOG] See Protocol SUB-Q ACHS 02/09/19 02/09/19 Unknown History Polyethylene Glycol 3350 [Miralax 17 gm PO QDAY 02/09/19 02/09/19 Unknown History 3350] Active Medications: Generic Name Dose Route Start Last Admin Trade Name Freq PRN Reason Stop Dose Admin Desmopressin Acetate 2 mcg 02/09/19 22:00 02/11/19 10:19 Ddavp IV 2 mcg Q12HR ROSELINE Administration Epoetin Jean Carlos 20,000 unit 02/10/19 10:32 02/10/19 16:02 Procrit IV 20,000 unit MARCELA PRN Administration hemodialysis Pantoprazole Sodium 80 mg/ 100 mls @ 10 mls/hr 02/09/19 08:00 02/11/19 09:12 Sodium Chloride IV 8 mg/hr DIRECT ROSELINE 10 mls/hr Administration 8 MG/HR Norepinephrine 4 mg in 250 mls @ 7.5 mls/hr 02/09/19 09:00 02/10/19 09:25 Levophed Drip 4 Mg/Ns 250 Ml IV 0 mcg/min TITR ROSELINE 0 mls/hr Titration Protocol 2 MCG/MIN Octreotide Acetate 500 mcg/ 101 mls @ 10.1 mls/hr 02/10/19 04:00 02/11/19 08:41 Sodium Chloride IV 50 mcg/hr TITR ROSELINE 10.1 mls/hr Administration Protocol 50 MCG/HR Sodium Chloride 100 mls @ 999 mls/hr 02/10/19 10:32 Nacl 0.9% IV MARCELA PRN Hypotension Sodium Chloride 1,000 mls @ 75 mls/hr 02/10/19 18:00 02/11/19 10:24 Nacl 0.9% 1000 Ml IV 75 mls/hr DIRECT ROSELINE Administration Insulin Human Lispro 0 unit 02/10/19 22:00 02/11/19 10:12 Humalog SUB-Q Not Given ACHS ROSELINE Protocol Morphine Sulfate 2 mg 02/10/19 17:03 02/11/19 05:20 Morphine IV 2 mg Q4H PRN Administration Pain, Moderate (4-6) Ondansetron HCl 4 mg 02/09/19 18:48 02/09/19 23:26 Zofran IV 4 mg Q4H PRN Administration Vomiting
--- NOTE | 2019-02-11 15:11 | Progress Note ---
Assessment and Plan 58-year-old female who presented with massive GI bleeding status post left gastric artery embolization with stable hemoglobin and hematocrit after procedure. No further bleeding. Has had some melena which is expected as the hematoma and the stomach clot was not evacuated. Agree with transfer to the intermediate care unit. Consider therapeutic paracentesis. Patient's family reports the patient has not been able to eat much due to feeling full, likely secondary to ascites. Patient is malnutrition and will require dietary consult once by mouth intake and be resumed. Subjective Date of service: 02/11/19 Principal diagnosis: GI Bleed Interval history: Doing well from embolization. Had some left upper quadrant pain, which is expected. Expect pain for 24-48 hours. H&H has been stable. Some melena, which is expected as the hematoma in the stomach was not evacuated. Patient is sleepy. Recently received pain medication. Objective - Constitutional Vitals: Vital Signs - 12hr 02/11/19 02/11/19 02/11/19 03:15 03:30 03:32 Temperature 98.4 F Pulse Rate Pulse Rate [ From Monitor] Respiratory Rate Blood Pressure 119/65 131/71 O2 Sat by Pulse 99 100 Oximetry 02/11/19 02/11/19 02/11/19 03:45 04:00 04:15 Temperature Pulse Rate 73 72 Pulse Rate [ 73 From Monitor] Respiratory 11 L 12 Rate Blood Pressure 134/83 132/77 132/77 O2 Sat by Pulse 100 100 98 Oximetry 02/11/19 02/11/19 02/11/19 04:30 04:45 05:01 Temperature Pulse Rate 72 72 Pulse Rate [ From Monitor] Respiratory 9 L 9 L Rate Blood Pressure 127/62 130/79 114/67 O2 Sat by Pulse 99 100 100 Oximetry 02/11/19 02/11/19 02/11/19 05:15 05:30 05:45 Temperature Pulse Rate 75 68 67 Pulse Rate [ From Monitor] Respiratory 11 L 10 L 8 L Rate Blood Pressure 114/67 109/62 117/70 O2 Sat by Pulse 100 97 99 Oximetry 02/11/19 02/11/19 02/11/19 06:00 06:15 06:30 Temperature Pulse Rate 67 68 69 Pulse Rate [ From Monitor] Respiratory 9 L 9 L 12 Rate Blood Pressure 125/76 130/76 120/64 O2 Sat by Pulse 98 100 98 Oximetry 02/11/19 02/11/19 02/11/19 06:45 07:00 07:15 Temperature Pulse Rate 70 69 68 Pulse Rate [ From Monitor] Respiratory 10 L 9 L 8 L Rate Blood Pressure 132/77 122/76 123/77 O2 Sat by Pulse 100 100 100 Oximetry 02/11/19 02/11/19 02/11/19 07:30 07:38 07:45 Temperature Pulse Rate 68 68 Pulse Rate [ From Monitor] Respiratory 8 L 8 L Rate Blood Pressure 112/82 112/82 O2 Sat by Pulse 100 99 100 Oximetry 02/11/19 02/11/19 02/11/19 08:00 08:15 08:30 Temperature 94.5 F L Pulse Rate 68 69 70 Pulse Rate [ 68 From Monitor] Respiratory 9 L 8 L 8 L Rate Blood Pressure 127/71 119/72 129/76 O2 Sat by Pulse 100 100 100 Oximetry 02/11/19 02/11/19 02/11/19 08:45 09:00 09:15 Temperature Pulse Rate 69 72 71 Pulse Rate [ From Monitor] Respiratory 10 L 9 L 9 L Rate Blood Pressure 130/79 134/74 125/74 O2 Sat by Pulse 100 100 100 Oximetry 02/11/19 02/11/19 02/11/19 09:31 09:45 10:00 Temperature Pulse Rate 72 70 70 Pulse Rate [ From Monitor] Respiratory 9 L 8 L 9 L Rate Blood Pressure 128/73 116/74 124/72 O2 Sat by Pulse 100 100 100 Oximetry 02/11/19 02/11/19 02/11/19 10:15 10:30 10:45 Temperature Pulse Rate 69 69 69 Pulse Rate [ From Monitor] Respiratory 9 L 12 9 L Rate Blood Pressure 131/78 122/65 124/72 O2 Sat by Pulse 100 100 100 Oximetry 02/11/19 02/11/19 02/11/19 11:00 11:15 11:30 Temperature Pulse Rate 67 70 68 Pulse Rate [ From Monitor] Respiratory 8 L 9 L 8 L Rate Blood Pressure 120/75 127/78 114/68 O2 Sat by Pulse 100 100 100 Oximetry 02/11/19 02/11/19 02/11/19 11:45 12:00 12:15 Temperature Pulse Rate 68 69 69 Pulse Rate [ 69 From Monitor] Respiratory 9 L 8 L 10 L Rate Blood Pressure 119/76 124/69 117/65 O2 Sat by Pulse 100 100 100 Oximetry 02/11/19 02/11/19 02/11/19 12:30 12:45 13:00 Temperature Pulse Rate 71 75 71 Pulse Rate [ From Monitor] Respiratory 10 L 10 L 11 L Rate Blood Pressure 124/72 117/82 102/65 O2 Sat by Pulse 100 100 100 Oximetry 02/11/19 02/11/19 02/11/19 13:15 13:30 13:45 Temperature Pulse Rate 71 71 71 Pulse Rate [ From Monitor] Respiratory 10 L 7 L 11 L Rate Blood Pressure 114/68 112/68 114/72 O2 Sat by Pulse 100 100 100 Oximetry General appearance: Present: no acute distress - EENT Eyes: EOM intact ENT: hearing intact - Respiratory Respiratory effort: normal Extremities: normal temperature, normal color, abnormal (no bleeding from right groin. No hematoma right groin.) - Gastrointestinal General gastrointestinal: Present: distended (ascites) - Psychiatric Psychiatric: other (sleepy) - Labs CBC & Chem 7: 02/11/19 05:35 02/11/19 05:35 Labs: Abnormal lab results 02/09/19 02/10/19 02/10/19 Range/Units 07:08 18:38 21:28 RBC (3.65-5.03) M/mm3 Hgb 8.7 L (10.1-14.3) gm/dl Hct 24.8 L (30.3-42.9) % MCHC (30-34) % Plt Count (140-440) K/mm3 Lymph % (Auto) (13.4-35.0) % Lymph # (1.2-5.4) K/mm3 Seg Neutrophils % (40.0-70.0) % BUN (7-17) mg/dL Creatinine (0.7-1.2) mg/dL Glucose (65-100) mg/dL POC Glucose 142 H (70-105) Calcium (8.4-10.2) mg/dL ALT (7-56) units/L Alkaline Phosphatase (35-129) units/L Total Protein (6.3-8.2) g/dL Albumin (3.9-5) g/dL Crossmatch See Detail 02/11/19 02/11/19 02/11/19 Range/Units 05:35 05:35 08:55 RBC 2.78 L (3.65-5.03) M/mm3 Hgb 8.7 L (10.1-14.3) gm/dl Hct 24.7 L (30.3-42.9) % MCHC 35 H (30-34) % Plt Count 94 L (140-440) K/mm3 Lymph % (Auto) 7.8 L (13.4-35.0) % Lymph # 0.4 L (1.2-5.4) K/mm3 Seg Neutrophils % 88.6 H (40.0-70.0) % BUN 41 H (7-17) mg/dL Creatinine 3.5 H (0.7-1.2) mg/dL Glucose 133 H (65-100) mg/dL POC Glucose 129 H (70-105) Calcium 7.9 L (8.4-10.2) mg/dL ALT < 5 L (7-56) units/L Alkaline Phosphatase 32 L (35-129) units/L Total Protein 5.7 L (6.3-8.2) g/dL Albumin 2.9 L (3.9-5) g/dL Crossmatch 02/11/19 Range/Units 12:39 RBC (3.65-5.03) M/mm3 Hgb (10.1-14.3) gm/dl Hct (30.3-42.9) % MCHC (30-34) % Plt Count (140-440) K/mm3 Lymph % (Auto) (13.4-35.0) % Lymph # (1.2-5.4) K/mm3 Seg Neutrophils % (40.0-70.0) % BUN (7-17) mg/dL Creatinine (0.7-1.2) mg/dL Glucose (65-100) mg/dL POC Glucose 139 H (70-105) Calcium (8.4-10.2) mg/dL ALT (7-56) units/L Alkaline Phosphatase (35-129) units/L Total Protein (6.3-8.2) g/dL Albumin (3.9-5) g/dL Crossmatch Medications & Allergies - Medications Allergies/Adverse Reactions: Allergies guaifenesin [From Robitussin] Allergy (Verified 02/09/19 07:00) Hives Penicillins Allergy (Verified 02/09/19 07:00) Hives Home Medications: Home Medications Medication Instructions Recorded Confirmed Last Taken Type Acetaminophen [Tylenol] 650 mg PO Q12HR PRN 02/09/19 02/09/19 Unknown History Aspirin EC 81 mg PO QDAY 02/09/19 02/09/19 Unknown History Atorvastatin [Lipitor Tab] 80 mg PO QHS 02/09/19 02/09/19 Unknown History Esomeprazole Magnesium [NexIUM] 40 mg PO Q12H 02/09/19 02/09/19 Unknown History Fluticasone [Flonase] 1 spray NS QDAY 02/09/19 02/09/19 Unknown History Lispro Insulin [HumaLOG] See Protocol SUB-Q ACHS 02/09/19 02/09/19 Unknown History Polyethylene Glycol 3350 [Miralax 17 gm PO QDAY 02/09/19 02/09/19 Unknown History 3350] Active Medications: Generic Name Dose Route Start Last Admin Trade Name Freq PRN Reason Stop Dose Admin Desmopressin Acetate 2 mcg 02/09/19 22:00 02/11/19 10:19 Ddavp IV 2 mcg Q12HR ROSELINE Administration Epoetin Jean Carlos 20,000 unit 02/10/19 10:32 02/10/19 16:02 Procrit IV 20,000 unit MARCELA PRN Administration hemodialysis Pantoprazole Sodium 80 mg/ 100 mls @ 10 mls/hr 02/09/19 08:00 02/11/19 09:12 Sodium Chloride IV 8 mg/hr DIRECT ROSELINE 10 mls/hr Administration 8 MG/HR Norepinephrine 4 mg in 250 mls @ 7.5 mls/hr 02/09/19 09:00 02/10/19 09:25 Levophed Drip 4 Mg/Ns 250 Ml IV 0 mcg/min TITR ROSELINE 0 mls/hr Titration Protocol 2 MCG/MIN Octreotide Acetate 500 mcg/ 101 mls @ 10.1 mls/hr 02/10/19 04:00 02/11/19 08:41 Sodium Chloride IV 50 mcg/hr TITR ROSELINE 10.1 mls/hr Administration Protocol 50 MCG/HR Sodium Chloride 1,000 mls @ 75 mls/hr 02/10/19 18:00 02/11/19 10:24 Nacl 0.9% 1000 Ml IV 75 mls/hr DIRECT ROSELINE Administration Sodium Chloride 100 mls @ 999 mls/hr 02/11/19 11:33 Nacl 0.9% IV MARCELA PRN Hypotension Insulin Human Lispro 0 unit 02/10/19 22:00 02/11/19 13:48 Humalog SUB-Q Not Given [facility] Protocol Morphine Sulfate 2 mg 02/10/19 17:03 02/11/19 05:20 Morphine IV 2 mg Q4H PRN Administration Pain, Moderate (4-6) Ondansetron HCl 4 mg 02/09/19 18:48 02/09/19 23:26 Zofran IV 4 mg Q4H PRN Administration Vomiting
[2019-02-11] MEDS ORDERED: TYLENOL PO PRN (15:40)
--- NOTE | 2019-02-11 15:47 | Gastroenterology Progress Note ---
Assessment and Plan - Patient Problems (1) Acute blood loss anemia Current Visit: Yes Status: Acute Plan to address problem: - Recurrent UGI bleeding ([place], [facility]) with (-) EGD x 2 for varices or obvious ulcer (both times obscured by blood) and (-) colonoscopy at [place]. - CT scan reviewed by Dr Acuna; ascites likely related to anasarca/renal disease; no convincing varices or nodular liver and spleen WNL. - S/p empiric embolization of L gastric artery 02/10 with improved vitals and labs. - Will stop octreotide, but continue protonix gtt. - Will plan EGD on Tuesday if clinically stable, to look at stomach when not bleeding. - OK to transfer out of unit, and start full liquid diet. - Will stop morphine, and transition to tylenol. (2) Hepatitis C Current Visit: Yes Status: Acute Plan to address problem: - No prior treatment; recent dx. - Per records, HCV, but Ab here is negative. - No documentation of prior treatment. (3) Ascites Current Visit: Yes Status: Acute Plan to address problem: - No evidence of cirrhosis on scan (discussed with Dr Acuna) and HCV is negative. - Likely related to underlying poor nutrition and ESRD; OK to continue aggressive HD, and remove fluid. - Will encourage protein intake. (4) ESRD (end stage renal disease) on dialysis Current Visit: Yes Status: Acute Subjective Date of service: 02/11/19 Principal diagnosis: GI Bleed Interval history: The patient has been somewhat somnolent all day (rec'd Morphine this AM) but wakes up and says she is hungry with no N/V/severe pain. Still dark stool in the rectal tube, but no active signs of bleeding; has weaned off pressors, and HR is normal. Objective - Constitutional Vitals: Temp Pulse Resp BP Pulse Ox 94.5 F L 71 11 L 114/72 100 02/11/19 08:00 02/11/19 13:45 02/11/19 13:45 02/11/19 13:45 02/11/19 13:45 General appearance: no acute distress - EENT Eyes: PERRL, EOM intact - Respiratory Respiratory effort: normal Respiratory: bilateral: CTA - Cardiovascular Rhythm: regular Heart Sounds: Present: S1 & S2 - Extremities Extremity abnormal: edema (3+ dependent) - Gastrointestinal General gastrointestinal: Present: soft, tender (minimal tenderness epigastric), non-distended - Labs CBC & Chem 7: 02/11/19 05:35 02/11/19 05:35 Labs: Laboratory Results - last 24 hr 02/09/19 02/10/19 02/10/19 07:08 18:38 21:28 WBC RBC Hgb 8.7 L Hct 24.8 L MCV MCH MCHC RDW Plt Count Lymph % (Auto) Placer % (Auto) Eos % (Auto) Baso % (Auto) Lymph # Placer # Eos # Baso # Seg Neutrophils % Seg Neutrophils # Sodium Potassium Chloride Carbon Dioxide Anion Gap BUN Creatinine Estimated GFR BUN/Creatinine Ratio Glucose POC Glucose 142 H Calcium Total Bilirubin AST ALT Alkaline Phosphatase Total Protein Albumin Albumin/Globulin Ratio Blood Type B POSITIVE Antibody Screen Negative Crossmatch See Detail 02/11/19 02/11/19 02/11/19 05:35 05:35 08:55 WBC 5.5 RBC 2.78 L Hgb 8.7 L Hct 24.7 L MCV 89 MCH 31 MCHC 35 H RDW 14.8 Plt Count 94 L Lymph % (Auto) 7.8 L Placer % (Auto) 3.0 Eos % (Auto) 0.0 Baso % (Auto) 0.6 Lymph # 0.4 L Placer # 0.2 Eos # 0.0 Baso # 0.0 Seg Neutrophils % 88.6 H Seg Neutrophils # 4.8 Sodium 137 Potassium 3.7 Chloride 98.6 Carbon Dioxide 27 Anion Gap 15 BUN 41 H Creatinine 3.5 H Estimated GFR 16 BUN/Creatinine Ratio 12 Glucose 133 H POC Glucose 129 H Calcium 7.9 L Total Bilirubin 0.60 AST 14 ALT < 5 L Alkaline Phosphatase 32 L Total Protein 5.7 L Albumin 2.9 L Albumin/Globulin Ratio 1.0 Blood Type Antibody Screen Crossmatch 02/11/19 12:39 WBC RBC Hgb Hct MCV MCH MCHC RDW Plt Count Lymph % (Auto) Placer % (Auto) Eos % (Auto) Baso % (Auto) Lymph # Placer # Eos # Baso # Seg Neutrophils % Seg Neutrophils # Sodium Potassium Chloride Carbon Dioxide Anion Gap BUN Creatinine Estimated GFR BUN/Creatinine Ratio Glucose POC Glucose 139 H Calcium Total Bilirubin AST ALT Alkaline Phosphatase Total Protein Albumin Albumin/Globulin Ratio Blood Type Antibody Screen Crossmatch
[2019-02-12 04:33] LABS: Basophils % (Auto) 0.6 % (0.0-1.8); Hematocrit 20.2 % (30.3-42.9); Hemoglobin 7.1 gm/dl (10.1-14.3); Lymphocytes # (Auto) 0.5 K/mm3 (1.2-5.4); Lymphocytes % (Auto) 8.3 % (13.4-35.0); Mean Corpuscular HGB Conc 35 % (30-34); Mean Corpuscular Volume 89 fl (79-97); Monocytes # (Auto) 0.3 K/mm3 (0.0-0.8); Monocytes % (Auto) 4.5 % (0.0-7.3); Red Blood Count 2.27 M/mm3 (3.65-5.03)
[2019-02-12 04:42] LABS: Platelet Count 84 K/mm3 (140-440)
[2019-02-12 04:56] LABS: Albumin 2.5 g/dL (3.9-5); BUN/Creatinine Ratio 11; Blood Urea Nitrogen 43 mg/dL (7-17); Calcium 7.3 mg/dL (8.4-10.2); Hemolysis Index 1
[2019-02-12 04:59] LABS: Alanine Aminotransferase < 5 units/L (7-56)
[2019-02-12] MEDS: PROTONIX 80 MG in NACL 0.9% 100 ML IV SCH (08:33)
[2019-02-12] MEDS: HumaLOG SUB-Q SCH ×4 (08:34→21:40)
[2019-02-12] MEDS ORDERED: MAGNESIUM SULFATE 2GM/50ML 2 GM/50 ML BAG IV ONE (09:00)
--- NOTE | 2019-02-12 09:30 | Progress Note ---
Assessment and Plan Assessment and plan: --Mild drop in H&H this morning; transfuse 1 unit of PRBC Total 6 units since admission, monitor H&H transfuse additional GI following, planning to repeat EGD tomorrow -- Acute severe upper GI bleeding; present on admission 02/09/19.s/p EGD Normal esophagus, no varices. 4 cm hiatal hernia, no obvious [place] tear Gastric fundus and greater curve of body obscured by clot and small amount of fresh blood. No active pooling or bleeding noted. Normal antrum, cardia, and duodenum. protonix drip, GI following --Patient continued to bleed; IR evaluated 02/10/19 s/p Left gastric artery embolization and 20 mcg DDAVP administered at the conclusion of the procedure. Patient tolerated the procedure well. --Severe acute blood loss anemia;s/p total 6+1 units PRBC today Hb 8.7, monitor H&H and transfuse as needed H&H --Thrombocytopenia;s/p platelets transfusion . --Hypovolemic shock /Hypotension; secondary to acute blood loss; Blood transfusion, IV fluids, s/p Levophed [Dced this morning] --History of hepatitis C; no evidence of cirrhosis liver on CT LFTs within normal range, no varices on EGD However patient has thrombocytopenia, coagulopathy --Ascites; moderate to large consider abdominal paracentesis as needed --End-stage renal disease on hemodialysis; Nephrology following hemodialysis per schedule --Severe malnutrition/hypoalbuminemia; nutrition supplements Supportive care, nutrition consult --DVT prophylaxis; SCD No pharmacologic anticoagulation due to GI bleeding --CODE STATUS full code Consults and recommendations noted and appreciated Monitor closely and adjust management as needed Critical care time 36 minutes Disposition;f/u EGD tomorrow.Disposition per GI Discharge when medically stable Brief history: 58-year-old female patient with significant past medical history of end-stage renal disease on hemodialysis, hepatitis C, GI bleeding in the past, recently admitted in [facility] discharged a few days ago was admitted through the emergency room with complaints of hematemesis, black Stools for the last 2-3 days history evaluation is consistent hemoglobin of 3.7 and severe GI bleeding, received stat blood transfusion and and had an emergency EGD, continued to bleed,IR was consulted, underwent gastric artery embolization, patient received total 7 unit of PRBC, hemoglobin still in the lower range GI planning repeat EGD tomorrow as well as possible abdominal paracentesis. Patient also has history of end-stage renal disease on hemodialysis GI, pulmonary critical, IR, nephrology following the patient History Interval history: Patient seen and examined medical records reviewed Patient feels slightly better, mild drop in H&H Transfuse 1 unit of PRBC Patient is hypothermic using heating blankets Alert and awake ill looking Vital signs noted Hospitalist Physical - Constitutional Vitals: Temp Pulse Resp BP Pulse Ox 98.1 F 86 14 105/63 100 02/12/19 03:48 02/12/19 06:16 02/12/19 06:16 02/12/19 06:16 02/12/19 09:09 General appearance: Present: no acute distress, cachectic, disheveled - EENT Eyes: Present: PERRL, EOM intact - Neck Neck: Present: supple, normal ROM - Respiratory Respiratory effort: normal Respiratory: bilateral: diminished, negative: rales, rhonchi, wheezing - Cardiovascular Rhythm: regular Heart Sounds: Present: S1 & S2 - Extremities Extremities: no ischemia, No edema - Abdominal General gastrointestinal: soft, non-tender, non-distended, normal bowel sounds, other (ascites) - Integumentary Integumentary: Present: clear, warm - Psychiatric Psychiatric: appropriate mood/affect, cooperative - Neurologic Neurologic: moves all extremities Results - Labs CBC & Chem 7: 02/13/19 04:21 02/14/19 04:38 Labs: Laboratory Last Values WBC 5.8 K/mm3 (4.5-11.0) 02/12/19 04:20 RBC 2.27 M/mm3 (3.65-5.03) L 02/12/19 04:20 Hgb 7.1 gm/dl (10.1-14.3) L 02/12/19 04:20 Hct 20.2 % (30.3-42.9) L 02/12/19 04:20 MCV 89 fl (79-97) 02/12/19 04:20 MCH 31 pg (28-32) 02/12/19 04:20 MCHC 35 % (30-34) H 02/12/19 04:20 RDW 15.0 % (13.2-15.2) 02/12/19 04:20 Plt Count 84 K/mm3 (140-440) L 02/12/19 04:20 Lymph % (Auto) 8.3 % (13.4-35.0) L 02/12/19 04:20 Martin % (Auto) 4.5 % (0.0-7.3) 02/12/19 04:20 Eos % (Auto) 0.0 % (0.0-4.3) 02/12/19 04:20 Baso % (Auto) 0.6 % (0.0-1.8) 02/12/19 04:20 Lymph # 0.5 K/mm3 (1.2-5.4) L 02/12/19 04:20 Martin # 0.3 K/mm3 (0.0-0.8) 02/12/19 04:20 Eos # 0.0 K/mm3 (0.0-0.4) 02/12/19 04:20 Baso # 0.0 K/mm3 (0.0-0.1) 02/12/19 04:20 Seg Neutrophils % 86.6 % (40.0-70.0) H 02/12/19 04:20 Seg Neutrophils # 5.1 K/mm3 (1.8-7.7) 02/12/19 04:20 PT 16.3 Sec. (12.2-14.9) H 02/10/19 13:34 INR 1.35 (0.87-1.13) H 02/10/19 13:34 APTT 39.6 Sec. (24.2-36.6) H 02/10/19 13:34 150 mg/dl (211-480) L 02/10/19 13:34 Sodium 137 mmol/L (137-145) 02/12/19 04:08 Potassium 3.9 mmol/L (3.6-5.0) 02/12/19 04:08 Chloride 101.0 mmol/L (98-107) 02/12/19 04:08 Carbon Dioxide 28 mmol/L (22-30) 02/12/19 04:08 12 mmol/L 02/12/19 04:08 BUN 43 mg/dL (7-17) H 02/12/19 04:08 3.8 mg/dL (0.7-1.2) H 02/12/19 04:08 Estimated GFR 15 ml/min 02/12/19 04:08 11 % 02/12/19 04:08 Glucose 136 mg/dL (65-100) H 02/12/19 04:08 POC Glucose 132 (70-105) H 02/12/19 08:33 Calcium 7.3 mg/dL (8.4-10.2) L 02/12/19 04:08 Magnesium 1.60 mg/dL (1.7-2.3) L 02/12/19 04:08 0.40 mg/dL (0.1-1.2) 02/12/19 04:08 AST 9 units/L (5-40) 02/12/19 04:08 ALT < 5 units/L (7-56) L 02/12/19 04:08 30 units/L (35-129) L 02/12/19 04:08 5.4 g/dL (6.3-8.2) L 02/12/19 04:08 2.5 g/dL (3.9-5) L 02/12/19 04:08 0.9 % 02/12/19 04:08 Hepatitis A IgM Ab Non-reactive (NonReactive) 02/10/19 14:34 Hep Bs Antigen Non-reactive (Negative) 02/10/19 14:34 Hep B Core IgM Ab Non-reactive (NonReactive) 02/10/19 14:34 Non-reactive (NonReactive) 02/10/19 14:34 Blood Type B POSITIVE 02/09/19 07:08 Antibody Screen Negative 02/09/19 07:08 Crossmatch See Detail 02/09/19 07:08 Active Medications - Current Medications Current Medications: Generic Name Dose Route Start Last Admin Trade Name Freq PRN Reason Stop Dose Admin Acetaminophen 500 mg 02/11/19 15:40 02/11/19 19:31 Tylenol PO 500 mg Q6H PRN Administration Pain, Mild (1-3) Desmopressin Acetate 2 mcg 02/09/19 22:00 02/11/19 22:10 Ddavp IV 2 mcg Q12HR ROSELINE Administration Epoetin Jean Carlos 20,000 unit 02/10/19 10:32 02/10/19 16:02 Procrit IV 20,000 unit MARCELA PRN Administration hemodialysis Pantoprazole Sodium 80 mg/ 100 mls @ 10 mls/hr 02/09/19 08:00 02/12/19 08:33 Sodium Chloride IV 8 mg/hr DIRECT ROSELINE 10 mls/hr Administration 8 MG/HR Norepinephrine 4 mg in 250 mls @ 7.5 mls/hr 02/09/19 09:00 02/10/19 09:25 Levophed Drip 4 Mg/Ns 250 Ml IV 0 mcg/min TITR ROSELINE 0 mls/hr Titration Protocol 2 MCG/MIN Sodium Chloride 1,000 mls @ 75 mls/hr 02/10/19 18:00 02/11/19 22:09 Nacl 0.9% 1000 Ml IV 75 mls/hr DIRECT ROSELINE Administration Sodium Chloride 100 mls @ 999 mls/hr 02/11/19 11:33 Nacl 0.9% IV MARCELA PRN Hypotension Magnesium Sulfate 2 gm in 50 mls @ 25 mls/hr 02/12/19 09:00 Magnesium Sulfate 2gm/50ml IV 02/12/19 10:59 ONCE ONE Insulin Human Lispro 0 unit 02/10/19 22:00 02/12/19 08:34 Humalog SUB-Q Not Given ACHS ROSELINE Protocol Ondansetron HCl 4 mg 02/09/19 18:48 02/09/19 23:26 Zofran IV 4 mg Q4H PRN Administration Vomiting Nutrition/Malnutrition Assess - Dietary Evaluation Nutrition/Malnutrition Findings: Nutrition Notes Start: 02/10/19 15:16 Freq: Status: Active Protocol: Document 02/10/19 15:17 RM (Rec: 02/10/19 15:22 RM [id number]) Nutrition Notes Need for Assessment generated from: MD Order Initial or Follow up Assessment Other Pertinent Diagnosis ESRD on HD, Hep C, Hx GI bleed , Ascites Current Diet Clear liquid Labs/Tests Reviewed Pertinent Medications Reviewed Height 5 ft 3 in Weight 58.967 kg [place] Body Weight (kg) 52.27 BMI 23.0 Subjective/Other Information Consulted for malnutrition. Pt not in room at time of visit. Burn Absent Trauma Absent #1 Nutrition Diagnosis Inadequate oral intake Etiology Hx GI bleed, ascites As Evidenced by Signs and Symptoms pt on clear liquid diet Is patient on ventilator? No Is Patient Ambulatory and/or Out of Bed Yes REE-(Preble-St. Jeor-ambulatory/OOB) [ 3136.940 NUTR.[id number]] Calculation Used for Recommendations Howard Ga Additional Notes Protein Needs: 71-118g (1.2-2g /kg) Fluid Needs: 1 ml/kcal Nutrition Intervention Change Diet Order: Advance diet when medically able Add Supplement/Snack (indicate name/kcal Ensure Clear 1 daily /protein ) Provides kCal: 240 Provides Protein (gm) 10 Goal #1 Diet advancement Anticipated Discharge Needs: Unable to determine at this time Follow-Up By: 02/12/19 Additional Comments Follow for PO and ONS intakes, diet advancement, malnutrition assessment
--- NOTE | 2019-02-12 10:04 | Progress Note ---
Subjective Principal diagnosis: GI Bleed Interval history: Patient was seen today for follow-up on multiple renal related issues Events of this hospitalization were noted Patient admitted with GI bleed Interdisciplinary notes were also reviewed Vitals intake output medications were reviewed Past medical history: Reviewed Family, social history: Reviewed Allergies: Reviewed Physical examination General: No acute distress Vitals: Reviewed HEENT: Oral mucosa moist no icterus Neck: Supple no thyromegaly nodular mass or JVD Central venous catheter site: Unremarkable Chest: Clear to auscultation anteriorly Heart: Regular rate and rhythm S1-S2 heard no S3-S4 Abdomen: Soft nontender no suprapubic masses no organomegaly Dull flanks Extremity: Dry skin less than 1+ edema Psych: No evidence of any agitation and aggression noted Derm: No petechial rash Assessment and plan: End stage renal disease: Patient will continue with hemodialysis as tolerated on Tuesday and Tuesday schedule patient has been admitted with upper GI bleed noted to have hiatal hernia currently being followed by gastroenterology/patient has a history of hepatitis C chronic CAT scan showed evidence of large amount of ascites with possible cirrhosis Anemia has been complicated by blood loss, packed red blood cell transfusion as needed Anemia and end-stage renal disease: To monitor, on erythropoietin 20,000 units with dialysis Order workup for anemia dialysis access: Central venous catheter Upon admission hemoglobin was 6.4/currently on desmopressin Secondary hyperparathyroidism: Periodically check vitamin D and phosphorus level along with PTH Hypertension and volume: To monitor and follow low systolic blood pressure under 150, patient is a very poor historian/ Multiple underlying comorbidities including schizophrenia, left cerebral CVA, dialysis, hepatitis C, case was discussed with ICU nurse to obtain a cortisol level, advised to discontinue IV fluid Prognosis: Guarded/possibly poor We'll continue to follow and make recommendation from renal standpoint Objective - Vital Signs Vital signs: Vital Signs - 12hr 02/11/19 02/11/19 02/11/19 22:16 22:30 22:46 Temperature Pulse Rate 78 79 78 Pulse Rate [ From Monitor] Respiratory 11 L 11 L 10 L Rate Blood Pressure 125/76 125/76 125/76 O2 Sat by Pulse 100 100 100 Oximetry 02/11/19 02/11/19 02/11/19 23:00 23:16 23:30 Temperature 98.4 F Pulse Rate 78 77 77 Pulse Rate [ From Monitor] Respiratory 11 L 12 11 L Rate Blood Pressure 125/76 109/63 109/63 O2 Sat by Pulse 100 100 100 Oximetry 02/11/19 02/12/19 02/12/19 23:46 00:00 00:16 Temperature Pulse Rate 82 80 77 Pulse Rate [ 79 From Monitor] Respiratory 11 L 10 L 11 L Rate Blood Pressure 109/63 109/63 108/68 O2 Sat by Pulse 100 100 100 Oximetry 02/12/19 02/12/19 02/12/19 00:30 00:46 01:00 Temperature Pulse Rate 79 78 79 Pulse Rate [ From Monitor] Respiratory 16 13 10 L Rate Blood Pressure 108/68 108/68 100/61 O2 Sat by Pulse 100 100 100 Oximetry 02/12/19 02/12/19 02/12/19 01:44 01:47 02:00 Temperature Pulse Rate 86 83 Pulse Rate [ From Monitor] Respiratory 12 13 Rate Blood Pressure 108/68 108/68 112/68 O2 Sat by Pulse 98 100 Oximetry 02/12/19 02/12/19 02/12/19 02:15 02:31 02:45 Temperature Pulse Rate 78 80 79 Pulse Rate [ From Monitor] Respiratory 11 L 11 L 11 L Rate Blood Pressure 112/68 100/61 100/61 O2 Sat by Pulse 100 100 100 Oximetry 02/12/19 02/12/19 02/12/19 03:00 03:15 03:30 Temperature Pulse Rate 79 80 80 Pulse Rate [ From Monitor] Respiratory 12 11 L 11 L Rate Blood Pressure 91/59 91/59 112/68 O2 Sat by Pulse 100 100 100 Oximetry 02/12/19 02/12/19 02/12/19 03:45 03:48 04:00 Temperature 98.1 F Pulse Rate 81 82 Pulse Rate [ 88 From Monitor] Respiratory 11 L 10 L Rate Blood Pressure 112/68 96/64 O2 Sat by Pulse 100 100 Oximetry 02/12/19 02/12/19 02/12/19 04:16 04:30 04:46 Temperature Pulse Rate 82 81 82 Pulse Rate [ From Monitor] Respiratory 14 11 L 11 L Rate Blood Pressure 96/64 96/64 96/64 O2 Sat by Pulse 100 100 100 Oximetry 02/12/19 02/12/19 02/12/19 05:00 05:16 05:30 Temperature Pulse Rate 83 91 H 88 Pulse Rate [ From Monitor] Respiratory 16 14 10 L Rate Blood Pressure 92/60 92/60 92/60 O2 Sat by Pulse 100 Oximetry 02/12/19 02/12/19 02/12/19 05:46 06:00 06:16 Temperature Pulse Rate 86 90 86 Pulse Rate [ From Monitor] Respiratory 11 L 14 14 Rate Blood Pressure 92/60 105/63 105/63 O2 Sat by Pulse Oximetry 02/12/19 09:09 Temperature Pulse Rate Pulse Rate [ From Monitor] Respiratory Rate Blood Pressure O2 Sat by Pulse 100 Oximetry - Lab 02/13/19 04:21 02/13/19 04:21 Most recent lab results Calcium 7.3 mg/dL (8.4-10.2) L 02/12/19 04:08 Magnesium 1.60 mg/dL (1.7-2.3) L 02/12/19 04:08 Medications & Allergies - Medications Allergies/Adverse Reactions: Allergies guaifenesin [From Robitussin] Allergy (Verified 02/09/19 07:00) Hives Penicillins Allergy (Verified 02/09/19 07:00) Hives Home Medications: Home Medications Medication Instructions Recorded Confirmed Last Taken Type Acetaminophen [Tylenol] 650 mg PO Q12HR PRN 02/09/19 02/09/19 Unknown History Aspirin EC 81 mg PO QDAY 02/09/19 02/09/19 Unknown History Atorvastatin [Lipitor Tab] 80 mg PO QHS 02/09/19 02/09/19 Unknown History Esomeprazole Magnesium [NexIUM] 40 mg PO Q12H 02/09/19 02/09/19 Unknown History Fluticasone [Flonase] 1 spray NS QDAY 02/09/19 02/09/19 Unknown History Lispro Insulin [HumaLOG] See Protocol SUB-Q ACHS 02/09/19 02/09/19 Unknown History Polyethylene Glycol 3350 [Miralax 17 gm PO QDAY 02/09/19 02/09/19 Unknown History 3350] Active Medications: Generic Name Dose Route Start Last Admin Trade Name Freq PRN Reason Stop Dose Admin Acetaminophen 500 mg 02/11/19 15:40 02/11/19 19:31 Tylenol PO 500 mg Q6H PRN Administration Pain, Mild (1-3) Desmopressin Acetate 2 mcg 02/09/19 22:00 02/11/19 22:10 Ddavp IV 2 mcg Q12HR ROSELINE Administration Epoetin Jean Carlos 20,000 unit 02/10/19 10:32 02/10/19 16:02 Procrit IV 20,000 unit MARCELA PRN Administration hemodialysis Pantoprazole Sodium 80 mg/ 100 mls @ 10 mls/hr 02/09/19 08:00 02/12/19 08:33 Sodium Chloride IV 8 mg/hr DIRECT ROSELINE 10 mls/hr Administration 8 MG/HR Sodium Chloride 1,000 mls @ 75 mls/hr 02/10/19 18:00 02/11/19 22:09 Nacl 0.9% 1000 Ml IV 75 mls/hr DIRECT ROSELINE Administration Sodium Chloride 100 mls @ 999 mls/hr 02/11/19 11:33 Nacl 0.9% IV MARCELA PRN Hypotension Magnesium Sulfate 2 gm in 50 mls @ 25 mls/hr 02/12/19 09:00 Magnesium Sulfate 2gm/50ml IV 02/12/19 10:59 ONCE ONE Insulin Human Lispro 0 unit 02/10/19 22:00 02/12/19 08:34 Humalog SUB-Q Not Given ACHS [facility] Protocol Ondansetron HCl 4 mg 02/09/19 18:48 02/09/19 23:26 Zofran IV 4 mg Q4H PRN Administration Vomiting
[2019-02-12] MEDS: DDAVP IV SCH ×2 (10:55→21:45)
[2019-02-12] MEDS ORDERED: NACL 0.9% 500 ML 500 ML ONE (11:26)
--- NOTE | 2019-02-12 11:30 | Progress Note ---
Assessment and Plan 58-year-old female who presented with massive GI bleeding status post left gastric artery embolization with stable hemoglobin and hematocrit after procedure. Since yesterday, H&H has declined. No further overt bleeding. No further melena since yesterday. No hematemesis. H&H q12 hours ordered. Consider therapeutic paracentesis. Patient's family reports the patient has not been able to eat much due to feeling full, likely secondary to ascites. Patient is malnutrition and will require dietary consult once by mouth intake and be resumed. Subjective Date of service: 02/12/19 Principal diagnosis: GI Bleed Interval history: Doing well from embolization. Not responding much today. H&H has slightly decreased, but no hematemsis or melena since I saw her yesterday. Objective - Constitutional Vitals: Vital Signs - 12hr 02/11/19 02/11/19 02/12/19 23:30 23:46 00:00 Temperature 98.4 F Pulse Rate 77 82 80 Pulse Rate [ 79 From Monitor] Respiratory 11 L 11 L 10 L Rate Blood Pressure 109/63 109/63 109/63 O2 Sat by Pulse 100 100 100 Oximetry 02/12/19 02/12/19 02/12/19 00:16 00:30 00:46 Temperature Pulse Rate 77 79 78 Pulse Rate [ From Monitor] Respiratory 11 L 16 13 Rate Blood Pressure 108/68 108/68 108/68 O2 Sat by Pulse 100 100 100 Oximetry 02/12/19 02/12/19 02/12/19 01:00 01:44 01:47 Temperature Pulse Rate 79 86 Pulse Rate [ From Monitor] Respiratory 10 L 12 Rate Blood Pressure 100/61 108/68 108/68 O2 Sat by Pulse 100 98 100 Oximetry 02/12/19 02/12/19 02/12/19 02:00 02:15 02:31 Temperature Pulse Rate 83 78 80 Pulse Rate [ From Monitor] Respiratory 13 11 L 11 L Rate Blood Pressure 112/68 112/68 100/61 O2 Sat by Pulse 100 100 Oximetry 02/12/19 02/12/19 02/12/19 02:45 03:00 03:15 Temperature Pulse Rate 79 79 80 Pulse Rate [ From Monitor] Respiratory 11 L 12 11 L Rate Blood Pressure 100/61 91/59 91/59 O2 Sat by Pulse 100 100 100 Oximetry 02/12/19 02/12/19 02/12/19 03:30 03:45 03:48 Temperature 98.1 F Pulse Rate 80 81 Pulse Rate [ From Monitor] Respiratory 11 L 11 L Rate Blood Pressure 112/68 112/68 O2 Sat by Pulse 100 100 Oximetry 02/12/19 02/12/19 02/12/19 04:00 04:16 04:30 Temperature Pulse Rate 82 82 81 Pulse Rate [ 88 From Monitor] Respiratory 10 L 14 11 L Rate Blood Pressure 96/64 96/64 96/64 O2 Sat by Pulse 100 100 100 Oximetry 02/12/19 02/12/19 02/12/19 04:46 05:00 05:16 Temperature Pulse Rate 82 83 91 H Pulse Rate [ From Monitor] Respiratory 11 L 16 14 Rate Blood Pressure 96/64 92/60 92/60 O2 Sat by Pulse 100 100 Oximetry 02/12/19 02/12/19 02/12/19 05:30 05:46 06:00 Temperature Pulse Rate 88 86 90 Pulse Rate [ From Monitor] Respiratory 10 L 11 L 14 Rate Blood Pressure 92/60 92/60 105/63 O2 Sat by Pulse Oximetry 02/12/19 02/12/19 06:16 09:09 Temperature Pulse Rate 86 Pulse Rate [ From Monitor] Respiratory 14 Rate Blood Pressure 105/63 O2 Sat by Pulse 100 Oximetry General appearance: Present: no acute distress, other (limited orientation) - EENT Eyes: EOM intact ENT: hearing intact - Respiratory Respiratory effort: normal Extremities: normal temperature, normal color Extremity abnormal: edema - Gastrointestinal General gastrointestinal: Present: distended - Psychiatric Psychiatric: other (limited orientation) - Labs CBC & Chem 7: 02/12/19 04:20 02/12/19 04:08 Labs: Abnormal lab results 02/11/19 02/11/19 02/11/19 Range/Units 12:39 17:33 22:01 RBC (3.65-5.03) M/mm3 Hgb (10.1-14.3) gm/dl Hct (30.3-42.9) % MCHC (30-34) % Plt Count (140-440) K/mm3 Lymph % (Auto) (13.4-35.0) % Lymph # (1.2-5.4) K/mm3 Seg Neutrophils % (40.0-70.0) % BUN (7-17) mg/dL Creatinine (0.7-1.2) mg/dL Glucose (65-100) mg/dL POC Glucose 139 H 133 H 194 H (70-105) Calcium (8.4-10.2) mg/dL Magnesium (1.7-2.3) mg/dL ALT (7-56) units/L Alkaline Phosphatase (35-129) units/L Total Protein (6.3-8.2) g/dL Albumin (3.9-5) g/dL 02/12/19 02/12/19 02/12/19 Range/Units 04:08 04:20 08:33 RBC 2.27 L (3.65-5.03) M/mm3 Hgb 7.1 L (10.1-14.3) gm/dl Hct 20.2 L (30.3-42.9) % MCHC 35 H (30-34) % Plt Count 84 L (140-440) K/mm3 Lymph % (Auto) 8.3 L (13.4-35.0) % Lymph # 0.5 L (1.2-5.4) K/mm3 Seg Neutrophils % 86.6 H (40.0-70.0) % BUN 43 H (7-17) mg/dL Creatinine 3.8 H (0.7-1.2) mg/dL Glucose 136 H (65-100) mg/dL POC Glucose 132 H (70-105) Calcium 7.3 L (8.4-10.2) mg/dL Magnesium 1.60 L (1.7-2.3) mg/dL ALT < 5 L (7-56) units/L Alkaline Phosphatase 30 L (35-129) units/L Total Protein 5.4 L (6.3-8.2) g/dL Albumin 2.5 L (3.9-5) g/dL Medications & Allergies - Medications Allergies/Adverse Reactions: Allergies guaifenesin [From Robitussin] Allergy (Verified 02/09/19 07:00) Hives Penicillins Allergy (Verified 02/09/19 07:00) Hives Home Medications: Home Medications Medication Instructions Recorded Confirmed Last Taken Type Acetaminophen [Tylenol] 650 mg PO Q12HR PRN 02/09/19 02/09/19 Unknown History Aspirin EC 81 mg PO QDAY 02/09/19 02/09/19 Unknown History Atorvastatin [Lipitor Tab] 80 mg PO QHS 02/09/19 02/09/19 Unknown History Esomeprazole Magnesium [NexIUM] 40 mg PO Q12H 02/09/19 02/09/19 Unknown History Fluticasone [Flonase] 1 spray NS QDAY 02/09/19 02/09/19 Unknown History Lispro Insulin [HumaLOG] See Protocol SUB-Q ACHS 02/09/19 02/09/19 Unknown History Polyethylene Glycol 3350 [Miralax 17 gm PO QDAY 02/09/19 02/09/19 Unknown History 3350] Active Medications: Generic Name Dose Route Start Last Admin Trade Name Freq PRN Reason Stop Dose Admin Acetaminophen 500 mg 02/11/19 15:40 02/11/19 19:31 Tylenol PO 500 mg Q6H PRN Administration Pain, Mild (1-3) Desmopressin Acetate 2 mcg 02/09/19 22:00 02/12/19 10:55 Ddavp IV 2 mcg Q12HR ROSELINE Administration Epoetin Jean Carlos 20,000 unit 02/10/19 10:32 02/10/19 16:02 Procrit IV 20,000 unit MARCELA PRN Administration hemodialysis Pantoprazole Sodium 80 mg/ 100 mls @ 10 mls/hr 02/09/19 08:00 02/12/19 08:33 Sodium Chloride IV 8 mg/hr DIRECT ROSELINE 10 mls/hr Administration 8 MG/HR Sodium Chloride 1,000 mls @ 75 mls/hr 02/10/19 18:00 02/11/19 22:09 Nacl 0.9% 1000 Ml IV 75 mls/hr DIRECT ROSELINE Administration Sodium Chloride 100 mls @ 999 mls/hr 02/11/19 11:33 Nacl 0.9% IV MARCELA PRN Hypotension Insulin Human Lispro 0 unit 02/10/19 22:00 02/12/19 08:34 Humalog SUB-Q Not Given [facility] Protocol Ondansetron HCl 4 mg 02/09/19 18:48 02/09/19 23:26 Zofran IV 4 mg Q4H PRN Administration Vomiting
[2019-02-12] MEDS ORDERED: NACL 0.9% 500 ML 500 ML IV SCH (11:51)
--- NOTE | 2019-02-12 11:57 | Gastroenterology Progress Note ---
Assessment and Plan (1) Acute blood loss anemia Current Visit: Yes Status: Acute Plan to address problem: - Recurrent UGI bleeding ([place], [facility]) with (-) EGD x 2 for varices or obvious ulcer (both times obscured by blood) and (-) colonoscopy at [place]. - CT scan reviewed by Dr Acuna; ascites likely related to anasarca/renal disease; no convincing varices or nodular liver and spleen WNL. - S/p empiric embolization of L gastric artery 02/10 with improved vitals and labs. - continue protonix gtt. - EGD tomorrow if clinically stable, to look at stomach when not bleeding. - okay for full liquids today then NPO after MN - continue supportive care (2) Hepatitis C Current Visit: Yes Status: Acute Plan to address problem: - No prior treatment; recent dx. - Per records, HCV, but Ab here is negative. - No documentation of prior treatment. (3) Ascites Current Visit: Yes Status: Acute Plan to address problem: - No evidence of cirrhosis on scan (discussed with Dr Acuna) and HCV is negative. - Likely related to underlying poor nutrition and ESRD; OK to continue aggressive HD, and remove fluid. - Will encourage protein intake. (4) ESRD (end stage renal disease) on dialysis Current Visit: Yes Status: Acute s Subjective Principal diagnosis: GI Bleed Interval history: No active signs of bleeding overnight or this am per nursing. Objective - Constitutional Vitals: Temp Pulse Resp BP Pulse Ox 98.1 F 86 14 105/63 100 02/12/19 03:48 02/12/19 06:16 02/12/19 06:16 02/12/19 06:16 02/12/19 09:09 General appearance: no acute distress - Respiratory Respiratory effort: normal - Cardiovascular Rhythm: regular - Extremities Extremity abnormal: edema - Gastrointestinal General gastrointestinal: Present: soft, tender (slight TTP ), distended (slight (ascites)), normal bowel sounds - Labs CBC & Chem 7: 02/12/19 04:20 02/12/19 04:08 Labs: Laboratory Results - last 24 hr 02/09/19 02/11/19 02/11/19 07:08 12:39 17:33 WBC RBC Hgb Hct MCV MCH MCHC RDW Plt Count Lymph % (Auto) Cross % (Auto) Eos % (Auto) Baso % (Auto) Lymph # Cross # Eos # Baso # Seg Neutrophils % Seg Neutrophils # Sodium Potassium Chloride Carbon Dioxide Anion Gap BUN Creatinine Estimated GFR BUN/Creatinine Ratio Glucose POC Glucose 139 H 133 H Calcium Magnesium Total Bilirubin AST ALT Alkaline Phosphatase Total Protein Albumin Albumin/Globulin Ratio Crossmatch See Detail 02/11/19 02/12/19 02/12/19 22:01 04:08 04:20 WBC 5.8 RBC 2.27 L Hgb 7.1 L Hct 20.2 L MCV 89 MCH 31 MCHC 35 H RDW 15.0 Plt Count 84 L Lymph % (Auto) 8.3 L Cross % (Auto) 4.5 Eos % (Auto) 0.0 Baso % (Auto) 0.6 Lymph # 0.5 L Cross # 0.3 Eos # 0.0 Baso # 0.0 Seg Neutrophils % 86.6 H Seg Neutrophils # 5.1 Sodium 137 Potassium 3.9 Chloride 101.0 Carbon Dioxide 28 Anion Gap 12 BUN 43 H Creatinine 3.8 H Estimated GFR 15 BUN/Creatinine Ratio 11 Glucose 136 H POC Glucose 194 H Calcium 7.3 L Magnesium 1.60 L Total Bilirubin 0.40 AST 9 ALT < 5 L Alkaline Phosphatase 30 L Total Protein 5.4 L Albumin 2.5 L Albumin/Globulin Ratio 0.9 Crossmatch 02/12/19 02/12/19 08:33 11:37 WBC RBC Hgb Hct MCV MCH MCHC RDW Plt Count Lymph % (Auto) Cross % (Auto) Eos % (Auto) Baso % (Auto) Lymph # Cross # Eos # Baso # Seg Neutrophils % Seg Neutrophils # Sodium Potassium Chloride Carbon Dioxide Anion Gap BUN Creatinine Estimated GFR BUN/Creatinine Ratio Glucose POC Glucose 132 H 169 H Calcium Magnesium Total Bilirubin AST ALT Alkaline Phosphatase Total Protein Albumin Albumin/Globulin Ratio Crossmatch
--- NOTE | 2019-02-12 15:16 | Progress Note ---
Assessment and Plan Imp: 1. UGIB s/p embolization procedure per IR 2. Acute blood loss anemia 3. Thrombocytopenia 4. Ascites 5. ESRD 6. Severe protein/calorie malnutrition Rec: 1. Monitor H/H; holding off on additional PRBCs for now 2. PPI drip; f/u GI recs 3. DDAVP 4. Keep platelets > 50K if active bleeding 5. SCDs at all times and I personally spoke with the RN Chuckie about this 6. Optimize nutrition & volume removal if BP tolerates; consider paracentesis if persistent ascites 7. Leave femoral CVL in tonight given borderline BPs, but could consider converting to PICC or mid-line; could consider Midodrine PO as well 8. Complex decision-making; prognosis remains guarded Plan of care reviewed w/ patient, she understands/agrees Subjective Date of service: 02/12/19 Principal diagnosis: GI Bleed Interval history: Awake, alert, undergoing HD when I saw her. No active bleeding. Blood in the rectal tube bag is old per RN. Denies SOB, chest pain. No obvious complaints currently. On 2L NC. Active Medications Acetaminophen (Tylenol) 500 mg PO Q6H PRN PRN Reason: Pain, Mild (1-3) Last Admin: 02/11/19 19:31 Dose: 500 mg Documented by: Desmopressin Acetate (Ddavp) 2 mcg IV Q12HR ROSELINE Last Admin: 02/12/19 10:55 Dose: 2 mcg Documented by: Epoetin Jean Carlos (Procrit) 20,000 unit IV MARCELA PRN PRN Reason: hemodialysis Last Admin: 02/10/19 16:02 Dose: 20,000 unit Documented by: Pantoprazole Sodium 80 mg/ (Sodium Chloride) 100 mls @ 10 mls/hr IV DIRECT ROSELINE Last Admin: 02/12/19 08:33 Dose: 8 mg/hr, 10 mls/hr Documented by: Sodium Chloride (Nacl 0.9% 1000 Ml) 1,000 mls @ 75 mls/hr IV DIRECT ROSELINE Last Admin: 02/11/19 22:09 Dose: 75 mls/hr Documented by: Sodium Chloride (Nacl 0.9%) 100 mls @ 999 mls/hr IV MARCELA PRN PRN Reason: Hypotension Sodium Chloride (Nacl 0.9% 500 Ml) 500 mls @ 0 mls/hr IV ONCE ROSELINE Stop: 02/12/19 23:52 Insulin Human Lispro (Humalog) 0 unit SUB-Q ACHS ROSELINE; Protocol Last Admin: 02/12/19 08:34 Dose: Not Given Documented by: Ondansetron HCl (Zofran) 4 mg IV Q4H PRN PRN Reason: Vomiting Last Admin: 02/09/19 23:26 Dose: 4 mg Documented by: Objective Vital Signs - 12hr 02/12/19 02/12/19 02/12/19 03:15 03:30 03:45 Temperature Pulse Rate 80 80 81 Pulse Rate [ From Monitor] Respiratory 11 L 11 L 11 L Rate Blood Pressure 91/59 112/68 112/68 O2 Sat by Pulse 100 100 100 Oximetry 02/12/19 02/12/19 02/12/19 03:48 04:00 04:16 Temperature 98.1 F Pulse Rate 82 82 Pulse Rate [ 88 From Monitor] Respiratory 10 L 14 Rate Blood Pressure 96/64 96/64 O2 Sat by Pulse 100 100 Oximetry 02/12/19 02/12/19 02/12/19 04:30 04:46 05:00 Temperature Pulse Rate 81 82 83 Pulse Rate [ From Monitor] Respiratory 11 L 11 L 16 Rate Blood Pressure 96/64 96/64 92/60 O2 Sat by Pulse 100 100 Oximetry 02/12/19 02/12/19 02/12/19 05:16 05:30 05:46 Temperature Pulse Rate 91 H 88 86 Pulse Rate [ From Monitor] Respiratory 14 10 L 11 L Rate Blood Pressure 92/60 92/60 92/60 O2 Sat by Pulse 100 Oximetry 02/12/19 02/12/19 02/12/19 06:00 06:16 06:30 Temperature Pulse Rate 90 86 87 Pulse Rate [ From Monitor] Respiratory 14 14 12 Rate Blood Pressure 105/63 105/63 105/63 O2 Sat by Pulse Oximetry 02/12/19 02/12/19 02/12/19 06:46 07:00 07:16 Temperature Pulse Rate 83 83 83 Pulse Rate [ From Monitor] Respiratory 13 11 L 11 L Rate Blood Pressure 105/63 86/54 105/63 O2 Sat by Pulse Oximetry 02/12/19 02/12/19 02/12/19 07:30 07:46 08:00 Temperature Pulse Rate 87 84 91 H Pulse Rate [ From Monitor] Respiratory 11 L 10 L 14 Rate Blood Pressure 105/62 105/62 104/63 O2 Sat by Pulse 100 100 Oximetry 02/12/19 02/12/19 02/12/19 08:16 08:30 08:46 Temperature Pulse Rate 88 86 86 Pulse Rate [ From Monitor] Respiratory 10 L 12 11 L Rate Blood Pressure 105/62 105/62 104/63 O2 Sat by Pulse 100 100 100 Oximetry 02/12/19 02/12/19 02/12/19 09:00 09:09 09:16 Temperature Pulse Rate 86 89 Pulse Rate [ From Monitor] Respiratory 13 14 Rate Blood Pressure 87/46 87/46 O2 Sat by Pulse 68 L 100 100 Oximetry 02/12/19 02/12/19 02/12/19 09:30 09:46 10:00 Temperature Pulse Rate 90 90 92 H Pulse Rate [ From Monitor] Respiratory 13 13 16 Rate Blood Pressure 87/46 87/46 94/49 O2 Sat by Pulse 100 100 100 Oximetry 02/12/19 02/12/19 02/12/19 10:16 10:30 10:46 Temperature Pulse Rate 89 91 H 90 Pulse Rate [ From Monitor] Respiratory 12 11 L 16 Rate Blood Pressure 87/46 87/46 87/46 O2 Sat by Pulse 100 100 100 Oximetry 02/12/19 02/12/19 02/12/19 11:00 11:16 11:30 Temperature Pulse Rate 88 87 89 Pulse Rate [ From Monitor] Respiratory 14 14 14 Rate Blood Pressure 94/62 94/62 94/62 O2 Sat by Pulse Oximetry 02/12/19 02/12/19 02/12/19 11:46 12:00 12:15 Temperature 98.0 F Pulse Rate 87 88 85 Pulse Rate [ From Monitor] Respiratory 13 15 14 Rate Blood Pressure 94/62 98/57 103/63 O2 Sat by Pulse Oximetry 02/12/19 02/12/19 02/12/19 12:30 12:45 13:01 Temperature Pulse Rate 84 85 83 Pulse Rate [ From Monitor] Respiratory 13 Rate Blood Pressure 108/64 99/59 106/65 O2 Sat by Pulse Oximetry 02/12/19 02/12/19 02/12/19 13:15 13:30 13:45 Temperature Pulse Rate 84 84 82 Pulse Rate [ From Monitor] Respiratory Rate Blood Pressure 98/59 103/56 110/61 O2 Sat by Pulse Oximetry 02/12/19 02/12/19 02/12/19 14:00 14:15 14:30 Temperature Pulse Rate 81 81 88 Pulse Rate [ From Monitor] Respiratory Rate Blood Pressure 105/59 88/54 105/66 O2 Sat by Pulse Oximetry 02/12/19 02/12/19 14:45 15:01 Temperature Pulse Rate 87 87 Pulse Rate [ From Monitor] Respiratory Rate Blood Pressure 104/65 111/63 O2 Sat by Pulse Oximetry Constitutional: no acute distress, alert Eyes: non-icteric ENT: oropharynx moist Neck: supple Effort: normal Ascultation: Bilateral: clear (anteriorly) Cardiovascular: regular rate and rhythm (no mrg) Gastrointestinal: normoactive bowel sounds, soft, non-tender, other (distended; + ascites) Integumentary: normal Extremities: no cyanosis, edema (1+ generalized edema) Neurologic: normal mental status, non-focal exam, pupils equal and round Psychiatric: mood appropriate, affect normal CBC and BMP: 02/12/19 04:20 02/12/19 04:08 ABG, PT/INR, D-dimer: PT/INR, D-dimer PT 16.3 Sec. (12.2-14.9) H 02/10/19 13:34 INR 1.35 (0.87-1.13) H 02/10/19 13:34 Abnormal lab findings: Abnormal Labs 02/09/19 02/09/19 02/09/19 07:08 07:08 07:08 WBC 3.8 L RBC 1.30 L Hgb 3.7 L* Hct 11.3 L* MCHC RDW 16.5 H Plt Count 70 L Lymph % (Auto) Lymph # 0.7 L Seg Neutrophils % 78.0 H PT 16.1 H INR 1.33 H APTT Fibrinogen BUN 43 H Creatinine 4.1 H Glucose 138 H POC Glucose Calcium 7.6 L Magnesium ALT < 5 L Alkaline Phosphatase 28 L Total Protein 5.3 L Albumin 2.4 L Crossmatch 02/09/19 02/09/19 02/09/19 07:08 14:02 18:56 WBC 4.1 L RBC 2.16 L Hgb 6.4 L 5.9 L* Hct 18.4 L* D 18.1 L* MCHC 35 H RDW 15.8 H Plt Count 68 L Lymph % (Auto) Lymph # Seg Neutrophils % PT INR APTT Fibrinogen BUN Creatinine Glucose POC Glucose Calcium Magnesium ALT Alkaline Phosphatase Total Protein Albumin Crossmatch See Detail 02/10/19 02/10/19 02/10/19 04:00 04:00 13:34 WBC RBC 2.81 L Hgb 6.4 L 8.6 L Hct 18.3 L* 25.1 L D MCHC RDW Plt Count 116 L Lymph % (Auto) 12.4 L Lymph # 0.7 L Seg Neutrophils % 83.4 H PT 17.0 H INR 1.42 H APTT Fibrinogen BUN Creatinine Glucose POC Glucose Calcium Magnesium ALT Alkaline Phosphatase Total Protein Albumin Crossmatch 02/10/19 02/10/19 02/10/19 13:34 13:34 18:38 WBC RBC Hgb 8.7 L Hct 24.8 L MCHC RDW Plt Count Lymph % (Auto) Lymph # Seg Neutrophils % PT 16.3 H INR 1.35 H APTT 39.6 H Fibrinogen 150 L BUN 57 H Creatinine 4.2 H Glucose 130 H POC Glucose Calcium 7.4 L Magnesium ALT < 5 L Alkaline Phosphatase 29 L Total Protein 5.1 L Albumin 2.5 L Crossmatch 02/10/19 02/11/19 02/11/19 21:28 05:35 05:35 WBC RBC 2.78 L Hgb 8.7 L Hct 24.7 L MCHC 35 H RDW Plt Count 94 L Lymph % (Auto) 7.8 L Lymph # 0.4 L Seg Neutrophils % 88.6 H PT INR APTT Fibrinogen BUN 41 H Creatinine 3.5 H Glucose 133 H POC Glucose 142 H Calcium 7.9 L Magnesium ALT < 5 L Alkaline Phosphatase 32 L Total Protein 5.7 L Albumin 2.9 L Crossmatch 02/11/19 02/11/19 02/11/19 08:55 12:39 17:33 WBC RBC Hgb Hct MCHC RDW Plt Count Lymph % (Auto) Lymph # Seg Neutrophils % PT INR APTT Fibrinogen BUN Creatinine Glucose POC Glucose 129 H 139 H 133 H Calcium Magnesium ALT Alkaline Phosphatase Total Protein Albumin Crossmatch 02/11/19 02/12/19 02/12/19 22:01 04:08 04:20 WBC RBC 2.27 L Hgb 7.1 L Hct 20.2 L MCHC 35 H RDW Plt Count 84 L Lymph % (Auto) 8.3 L Lymph # 0.5 L Seg Neutrophils % 86.6 H PT INR APTT Fibrinogen BUN 43 H Creatinine 3.8 H Glucose 136 H POC Glucose 194 H Calcium 7.3 L Magnesium 1.60 L ALT < 5 L Alkaline Phosphatase 30 L Total Protein 5.4 L Albumin 2.5 L Crossmatch 02/12/19 02/12/19 02/12/19 08:33 11:37 12:20 WBC RBC Hgb Hct MCHC RDW Plt Count Lymph % (Auto) Lymph # Seg Neutrophils % PT INR APTT Fibrinogen BUN Creatinine Glucose POC Glucose 132 H 169 H Calcium Magnesium ALT Alkaline Phosphatase Total Protein Albumin Crossmatch See Detail Chest x-ray: report reviewed, image reviewed
[2019-02-12] MEDS: PROCRIT IV PRN (15:20)
[2019-02-12 16:38] LABS: Basophils % (Auto) 0.4 % (0.0-1.8); Hematocrit 29.2 % (30.3-42.9); Lymphocytes # (Auto) 0.5 K/mm3 (1.2-5.4); Lymphocytes % (Auto) 7.9 % (13.4-35.0); Mean Corpuscular HGB Conc 34 % (30-34); Mean Corpuscular Volume 90 fl (79-97); Monocytes # (Auto) 0.3 K/mm3 (0.0-0.8); Monocytes % (Auto) 5.2 % (0.0-7.3); Red Blood Count 3.26 M/mm3 (3.65-5.03); Red Cell Distribution Width 14.9 % (13.2-15.2)
[2019-02-12 16:40] LABS: Platelet Count 82 K/mm3 (140-440)
[2019-02-12 20:49] LABS: Hematocrit 28.5 % (30.3-42.9)
[2019-02-12] MEDS: PROTONIX IV SCH (21:39)
[2019-02-12] MEDS: SENOKOT PO SCH (21:52)
[2019-02-13 05:12] LABS: Basophils % (Auto) 0.6 % (0.0-1.8); Hematocrit 26.3 % (30.3-42.9); Hemoglobin 9.2 gm/dl (10.1-14.3); Lymphocytes # (Auto) 0.7 K/mm3 (1.2-5.4); Lymphocytes % (Auto) 12.8 % (13.4-35.0); Mean Corpuscular HGB Conc 35 % (30-34); Mean Corpuscular Volume 90 fl (79-97); Monocytes # (Auto) 0.3 K/mm3 (0.0-0.8); Monocytes % (Auto) 5.2 % (0.0-7.3); Red Blood Count 2.93 M/mm3 (3.65-5.03); Red Cell Distribution Width 14.9 % (13.2-15.2)
[2019-02-13 05:13] LABS: Platelet Count 75 K/mm3 (140-440)
[2019-02-13 05:19] LABS: INR 1.26 (0.87-1.13)
[2019-02-13 05:49] LABS: Albumin 2.6 g/dL (3.9-5); BUN/Creatinine Ratio 9; Blood Urea Nitrogen 30 mg/dL (7-17); Calcium 7.4 mg/dL (8.4-10.2); Hemolysis Index 3
[2019-02-13 05:53] LABS: Alanine Aminotransferase < 5 units/L (7-56)
[2019-02-13] MEDS: HumaLOG SUB-Q SCH ×3 (07:50→22:27)
[2019-02-13] MEDS ORDERED: NACL 0.9% 1000 ML 1,000 ML IV SCH (08:00)
--- NOTE | 2019-02-13 09:47 | Progress Note ---
Subjective Principal diagnosis: GI Bleed Interval history: Patient was seen today for follow-up on multiple renal related issues Events of this hospitalization were noted She is currently on maintenance hemodialysis Tuesday and Tuesday Patient admitted with GI bleed Interdisciplinary notes were also reviewed Vitals intake output medications were reviewed Past medical history: Reviewed Family, social history: Reviewed Allergies: Reviewed Physical examination General: No acute distress Vitals: Reviewed HEENT: Oral mucosa moist no icterus Neck: Supple no thyromegaly nodular mass or JVD Chest: Clear to auscultation anteriorly Heart: Regular rate and rhythm S1-S2 heard no S3-S4 Abdomen: Soft nontender no suprapubic masses no organomegaly Extremity: Dry skin less than 1+ edema Psych: No evidence of any agitation and aggression noted Derm: No petechial rash Assessment and plan: End stage renal disease: Continue with hemodialysis treatment 3 times a week only as tolerated will need albumin support Change her dialysis prescription, increase dialysate sodium to 145, may consider using albumin As of today patient's hemoglobin is 9.2, platelet count 75,000, some fluctuation, potassium 3.7 BUN 30 creatinine 3.2 Status post embolization for upper GI bleed, patient has had recurrent upper GI bleed has had endoscopies 2 History of hepatitis C, currently being followed by gastroenterology service No definite evidence of cirrhosis on this can Anemia and end-stage renal disease with blood loss and thrombocytopenia Ascites: Multifactorial currently being followed by gastroenterology service Overall prognosis appears to be guarded to poor Hemodialysis only as tolerated Multiple comorbidities including hepatitis C, schizophrenia, depression, CVA dialysis access: Central venous catheter Upon admission hemoglobin was 6.4/currently on desmopressin Overall prognosis guarded to poor We'll continue to follow and make recommendation from renal standpoint Objective - Vital Signs Vital signs: Vital Signs - 12hr 02/12/19 02/12/19 02/12/19 22:00 22:16 22:30 Temperature Pulse Rate 79 75 77 Pulse Rate [ From Monitor] Respiratory 14 12 12 Rate Blood Pressure 126/78 126/78 126/78 O2 Sat by Pulse 100 100 100 Oximetry 02/12/19 02/12/19 02/12/19 22:46 23:00 23:16 Temperature Pulse Rate 77 76 84 Pulse Rate [ From Monitor] Respiratory 16 10 L 12 Rate Blood Pressure 111/58 108/57 108/57 O2 Sat by Pulse 100 100 100 Oximetry 02/12/19 02/12/19 02/12/19 23:20 23:30 23:46 Temperature Pulse Rate 83 82 77 Pulse Rate [ From Monitor] Respiratory 15 10 L 18 Rate Blood Pressure 108/57 122/67 122/67 O2 Sat by Pulse 100 100 100 Oximetry 02/13/19 02/13/19 02/13/19 00:00 00:16 00:30 Temperature 97.6 F Pulse Rate 77 77 77 Pulse Rate [ From Monitor] Respiratory 20 20 21 Rate Blood Pressure 100/61 122/67 92/56 O2 Sat by Pulse 100 100 100 Oximetry 02/13/19 02/13/19 02/13/19 00:46 01:00 01:16 Temperature Pulse Rate 74 75 75 Pulse Rate [ From Monitor] Respiratory 18 11 L 10 L Rate Blood Pressure 92/56 100/63 92/56 O2 Sat by Pulse 100 100 100 Oximetry 02/13/19 02/13/19 02/13/19 01:30 01:46 02:00 Temperature Pulse Rate 77 72 72 Pulse Rate [ From Monitor] Respiratory 11 L 10 L 10 L Rate Blood Pressure 94/58 100/63 97/59 O2 Sat by Pulse 100 100 100 Oximetry 02/13/19 02/13/19 02/13/19 02:16 02:30 02:46 Temperature Pulse Rate 71 70 71 Pulse Rate [ From Monitor] Respiratory 9 L 10 L 9 L Rate Blood Pressure 94/58 104/63 104/63 O2 Sat by Pulse 100 100 100 Oximetry 02/13/19 02/13/19 02/13/19 03:00 03:16 03:30 Temperature Pulse Rate 79 74 73 Pulse Rate [ From Monitor] Respiratory 11 L 9 L 9 L Rate Blood Pressure 104/63 104/63 98/65 O2 Sat by Pulse 100 100 100 Oximetry 02/13/19 02/13/19 02/13/19 03:46 04:00 04:16 Temperature 97.3 F L Pulse Rate 70 69 73 Pulse Rate [ 70 From Monitor] Respiratory 9 L 10 L 9 L Rate Blood Pressure 98/65 101/64 101/64 O2 Sat by Pulse 100 100 100 Oximetry 02/13/19 02/13/19 02/13/19 04:30 04:46 05:00 Temperature Pulse Rate 73 68 70 Pulse Rate [ From Monitor] Respiratory 9 L 9 L 9 L Rate Blood Pressure 122/81 122/81 120/80 O2 Sat by Pulse 100 100 100 Oximetry 02/13/19 02/13/19 02/13/19 05:16 05:30 05:46 Temperature Pulse Rate 70 72 70 Pulse Rate [ From Monitor] Respiratory 10 L 11 L 9 L Rate Blood Pressure 122/81 129/81 129/81 O2 Sat by Pulse 100 100 100 Oximetry 02/13/19 02/13/19 02/13/19 06:00 06:16 06:30 Temperature Pulse Rate 69 77 75 Pulse Rate [ From Monitor] Respiratory 18 11 L 9 L Rate Blood Pressure 129/81 129/81 128/64 O2 Sat by Pulse 100 100 100 Oximetry 02/13/19 02/13/19 06:46 08:00 Temperature 97.4 F L Pulse Rate 75 Pulse Rate [ From Monitor] Respiratory 10 L Rate Blood Pressure 128/64 O2 Sat by Pulse 99 Oximetry - Lab 02/13/19 04:21 02/13/19 04:21 Most recent lab results Calcium 7.4 mg/dL (8.4-10.2) L 02/13/19 04:21 Phosphorus 2.50 mg/dL (2.5-4.5) 02/13/19 04:21 Magnesium 1.80 mg/dL (1.7-2.3) 02/13/19 04:21 Medications & Allergies - Medications Allergies/Adverse Reactions: Allergies guaifenesin [From Robitussin] Allergy (Verified 02/09/19 07:00) Hives Penicillins Allergy (Verified 02/09/19 07:00) Hives Home Medications: Home Medications Medication Instructions Recorded Confirmed Last Taken Type Acetaminophen [Tylenol] 650 mg PO Q12HR PRN 02/09/19 02/09/19 Unknown History Aspirin EC 81 mg PO QDAY 02/09/19 02/09/19 Unknown History Atorvastatin [Lipitor Tab] 80 mg PO QHS 02/09/19 02/09/19 Unknown History Esomeprazole Magnesium [NexIUM] 40 mg PO Q12H 02/09/19 02/09/19 Unknown History Fluticasone [Flonase] 1 spray NS QDAY 02/09/19 02/09/19 Unknown History Lispro Insulin [HumaLOG] See Protocol SUB-Q ACHS 02/09/19 02/09/19 Unknown History Polyethylene Glycol 3350 [Miralax 17 gm PO QDAY 02/09/19 02/09/19 Unknown History 4130] Active Medications: Generic Name Dose Route Start Last Admin Trade Name Freq PRN Reason Stop Dose Admin Acetaminophen 500 mg 02/11/19 15:40 02/11/19 19:31 Tylenol PO 500 mg Q6H PRN Administration Pain, Mild (1-3) Desmopressin Acetate 2 mcg 02/09/19 22:00 02/12/19 21:45 Ddavp IV 2 mcg Q12HR ROSELINE Administration Epoetin Jean Carlos 20,000 unit 02/10/19 10:32 02/12/19 15:20 Procrit IV 20,000 unit MARCELA PRN Administration hemodialysis Sodium Chloride 100 mls @ 999 mls/hr 02/11/19 11:33 Nacl 0.9% IV MARCELA PRN Hypotension Sodium Chloride 1,000 mls @ 50 mls/hr 02/13/19 08:00 Nacl 0.9% 1000 Ml IV DIRECT [facility] Insulin Human Lispro 0 unit 02/10/19 22:00 02/12/19 21:40 Humalog SUB-Q Not Given ACHS [facility] Protocol Ondansetron HCl 4 mg 02/09/19 18:48 02/09/19 23:26 Zofran IV 4 mg Q4H PRN Administration Vomiting Pantoprazole Sodium 40 mg 02/12/19 22:00 02/12/19 21:39 Protonix IV 40 mg BID ROSELINE Administration Senna 17.2 mg 02/12/19 22:00 02/12/19 21:52 Senokot PO Not Given QHS [facility]
[2019-02-13] MEDS: PROTONIX IV SCH (10:01)
[2019-02-13] MEDS: DDAVP IV SCH ×2 (10:05→22:28)
--- NOTE | 2019-02-13 12:27 | Anesthesia Day of Surgery ---
Anesthesia Day of Surgery - Day of Surgery Patient Examined: Yes Patient H&P Reviewed: Yes Patient is NPO: Yes
--- NOTE | 2019-02-13 12:30 | Anesthesia Consultation ---
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
[2019-02-13] MEDS ORDERED: WATER FOR IRRIG STERILE IR ONE (13:05)
--- NOTE | 2019-02-13 13:23 | Post Operative Note ---
Pre-op diagnosis: Hematemesis/2nd look Post-op diagnosis: other (Large Fundus Ulcer, Small Hiatal Hernia) Findings: 1. Large ulcer (4cm) on lesser curve; no visible vessel - May have been source of bleeding, but may be 2nd embolization - Biopsy taken of the margins but does not appear malignant 2. Mild gastric, biopsy of the antrum 3. Small hiatal hernia Procedure: EGD with cold biopsy Anesthesia: MAC Surgeon: LIZZY SHAFFER Estimated blood loss: minimal Pathology: list (1. Gastric antrum. 2. Fundus ulcer.) Specimen disposition: to lab Condition: stable Disposition: floor (Recs: 1. OK to advance diet. 2. Protonix BID and carafate x 1 week. 3. F/U Path. 4. OK to transfer to Rehab if hct stable over next 24-48 hours.)
--- NOTE | 2019-02-13 13:34 | Operative Report ---
PROCEDURE PERFORMED: Esophagogastroduodenoscopy with cold biopsy. PREOPERATIVE DIAGNOSIS: Second look endoscopy due to massive upper gastrointestinal bleed. POSTOPERATIVE DIAGNOSIS: Large gastric ulcer, hiatal hernia, gastritis. ENDOSCOPIST: Armani Espinoza MD INSTRUMENT: Olympus video endoscope. MEDICATIONS: MAC anesthesia by Anesthesia Services. COMPLICATIONS: No apparent complications. ESTIMATED BLOOD LOSS: Minimal. SPECIMENS: 1. Gastric antrum, rule out H. pylori. 2. Fundus ulcer. IMPLANTS: None. ASSISTANTS: None. CONDITION AT COMPLETION: Stable. TECHNIQUE: The patient was informed of the risks and benefits of the procedure as well as her family. Consent was obtained and the patient was placed in the left lateral decubitus position. The above sedative medications were given. Her vital signs remained stable throughout the procedure. The instrument was advanced from the mouth to the second portion of the duodenum under direct visualization. At that point, the bowel was insufflated and the endoscope was slowly withdrawn. FINDINGS: 1. No blood and no blood clots in the upper GI tract. 2. Normal duodenum. 3. Normal antrum. 4. Mild gastritis consistent with erythema and small erosions throughout the stomach, status post cold biopsy. 5. Large ulcer, 4 cm, on the lesser curve of the stomach without a visible vessel present. a. This may have been the source of the bleeding, but this may also be a large ulcer secondary to recent embolization. b. Biopsies were taken of the margins, but the ulcer did not appear malignant. c. There was a minimal amount of pigment material at the base, but no evidence of visible vessel or high risk stigmata for bleeding. 6. Small hiatal hernia. 7. Normal esophagus without varices. RECOMMENDATIONS: 1. Okay to advance diet. 2. Protonix twice daily therapy and Carafate for 1 week. 3. Follow up on pathology. 4. Okay to transfer the patient to rehabilitation if the hematocrit is stable over the next 24-48 hours. 5. I would repeat the upper endoscopy in approximately 4-6 weeks to assure healing. JOB# [id number] REBECCA/NTS
[2019-02-13] MEDS ORDERED: DIPRIVAN 10 MG/ML IV ONE (13:39)
[2019-02-13] MEDS ORDERED: NACL 0.9% 1000 ML 1,000 ML ONE (14:26)
--- NOTE | 2019-02-13 15:23 | Event Note ---
Date: 02/13/19 Patient has been off the floor all day for procedure. Will f/u in AM.
--- NOTE | 2019-02-13 18:10 | Progress Note ---
Assessment and Plan Assessment and plan: Brief history: 58-year-old female patient with significant past medical history of end-stage renal disease on hemodialysis, hepatitis C, GI bleeding in the past, recently admitted in [facility] discharged a few days ago was admitted through the emergency room with complaints of hematemesis, black Stools for the last 2-3 days history evaluation is consistent hemoglobin of 3.7 and severe GI bleeding, received stat blood transfusion and and had an emergency EGD, continued to bleed,IR was consulted, underwent gastric artery embolization, patient received total 7 unit of PRBC, hemoglobin still in the lower range GI planning repeat EGD today as well as possible abdominal paracentesis. Patient also has history of end-stage renal disease on hemodialysis GI, pulmonary critical, IR, nephrology following the patient Per EGD report . Large ulcer (4cm) on lesser curve; no visible vessel - May have been source of bleeding, but may be 2nd embolization - Biopsy taken of the margins but does not appear malignant 2. Mild gastric, biopsy of the antrum 3. Small hiatal hernia Recomendation 1. OK to advance diet. 2. Protonix BID and carafate x 1 week. 3. F/U Path. 4. OK to transfer to Rehab if hct stable over next 24-48 hours. Acute Blood loss anemia --Mild drop in H&H this morning; transfuse 1 unit of PRBC Toprol 7 units since admission, monitor H&H transfuse additional GI following, planning to repeat EGD TODAY AND NOTED ABOVE -- Acute severe upper GI bleeding; present on admission 02/09/19.s/p EGD Normal esophagus, no varices. 4 cm hiatal hernia, no obvious [place] tear Gastric fundus and greater curve of body obscured by clot and small amount of fr esh blood. No active pooling or bleeding noted. Normal antrum, cardia, and duodenum. protonix drip, GI following --Patient continued to bleed; IR evaluated 02/10/19 s/p Left gastric artery embolization and 20 mcg DDAVP administered at the conclusion of the procedure. Patient tolerated the procedure well. --Severe acute blood loss anemia;s/p total 6+1 units PRBC today Hb 8.7, monitor H&H and transfuse as needed H&H --Thrombocytopenia;s/p platelets transfusion . --Hypovolemic shock /Hypotension; secondary to acute blood loss; Blood transfusion, IV fluids, s/p Levophed [Dced this morning] --History of hepatitis C; no evidence of cirrhosis liver on CT LFTs within normal range, no varices on EGD However patient has thrombocytopenia, coagulopathy --Ascites; moderate to large consider abdominal paracentesis as needed if needed --End-stage renal disease on hemodialysis; Nephrology following hemodialysis per schedule --Severe malnutrition/hypoalbuminemia; nutrition supplements Supportive care, nutrition consult --DVT prophylaxis; SCD No pharmacologic anticoagulation due to GI bleeding --CODE STATUS full code Consults and recommendations noted and appreciated Monitor closely and adjust management as needed Disposition;IN AM IF H/H STABLE Disposition per GI Discharge when medically stable History Interval history: Pateint seen and examined, No new complaints, for egd today Hospitalist Physical - Physical exam Narrative exam: General appearance: Present: no acute distress, cachectic, - EENT Eyes: Present: PERRL, EOM intact - Neck Neck: Present: supple, normal ROM - Respiratory Respiratory effort: normal Respiratory: bilateral: diminished, negative: rales, rhonchi, wheezing - Cardiovascular Rhythm: regular Heart Sounds: Present: S1 & S2 - Extremities Extremities: no ischemia, No edema - Abdominal General gastrointestinal: soft, non-tender, non-distended, normal bowel sounds, other (ascites) - Integumentary Integumentary: Present: clear, warm - Psychiatric Psychiatric: appropriate mood/affect, cooperative - Neurologic Neurologic: moves all extremities - Constitutional Vitals: Temp Pulse Resp BP Pulse Ox 97.3 F L 69 11 L 154/86 100 02/13/19 16:00 02/13/19 17:16 02/13/19 17:16 02/13/19 17:16 02/13/19 17:16 General appearance: Present: no acute distress, cachectic, disheveled Results - Labs CBC & Chem 7: 02/13/19 04:21 02/13/19 04:21 Labs: Laboratory Last Values WBC 5.8 K/mm3 (4.5-11.0) 02/13/19 04:21 RBC 2.93 M/mm3 (3.65-5.03) L 02/13/19 04:21 Hgb 9.2 gm/dl (10.1-14.3) L 02/13/19 04:21 Hct 26.3 % (30.3-42.9) L 02/13/19 04:21 MCV 90 fl (79-97) 02/13/19 04:21 MCH 32 pg (28-32) 02/13/19 04:21 MCHC 35 % (30-34) H 02/13/19 04:21 RDW 14.9 % (13.2-15.2) 02/13/19 04:21 Plt Count 75 K/mm3 (140-440) L 02/13/19 04:21 Lymph % (Auto) 12.8 % (13.4-35.0) L 02/13/19 04:21 [place] % (Auto) 5.2 % (0.0-7.3) 02/13/19 04:21 Eos % (Auto) 0.0 % (0.0-4.3) 02/13/19 04:21 Baso % (Auto) 0.6 % (0.0-1.8) 02/13/19 04:21 Lymph # 0.7 K/mm3 (1.2-5.4) L 02/13/19 04:21 [place] # 0.3 K/mm3 (0.0-0.8) 02/13/19 04:21 Eos # 0.0 K/mm3 (0.0-0.4) 02/13/19 04:21 Baso # 0.0 K/mm3 (0.0-0.1) 02/13/19 04:21 Seg Neutrophils % 81.4 % (40.0-70.0) H 02/13/19 04:21 Seg Neutrophils # 4.7 K/mm3 (1.8-7.7) 02/13/19 04:21 PT 15.5 Sec. (12.2-14.9) H 02/13/19 04:21 INR 1.26 (0.87-1.13) H 02/13/19 04:21 APTT 39.6 Sec. (24.2-36.6) H 02/10/19 13:34 150 mg/dl (211-480) L 02/10/19 13:34 Sodium 140 mmol/L (137-145) 02/13/19 04:21 Potassium 3.7 mmol/L (3.6-5.0) 02/13/19 04:21 Chloride 102.3 mmol/L (98-107) 02/13/19 04:21 Carbon Dioxide 29 mmol/L (22-30) 02/13/19 04:21 12 mmol/L 02/13/19 04:21 BUN 30 mg/dL (7-17) H 02/13/19 04:21 3.2 mg/dL (0.7-1.2) H 02/13/19 04:21 Estimated GFR 18 ml/min 02/13/19 04:21 9 % 02/13/19 04:21 Glucose 110 mg/dL (65-100) H 02/13/19 04:21 POC Glucose 117 (70-105) H 02/13/19 12:28 Calcium 7.4 mg/dL (8.4-10.2) L 02/13/19 04:21 Phosphorus 2.50 mg/dL (2.5-4.5) 02/13/19 04:21 Magnesium 1.80 mg/dL (1.7-2.3) 02/13/19 04:21 0.40 mg/dL (0.1-1.2) 02/13/19 04:21 AST 8 units/L (5-40) 02/13/19 04:21 ALT < 5 units/L (7-56) L 02/13/19 04:21 33 units/L (35-129) L 02/13/19 04:21 5.6 g/dL (6.3-8.2) L 02/13/19 04:21 2.6 g/dL (3.9-5) L 02/13/19 04:21 0.9 % 02/13/19 04:21 Hepatitis A IgM Ab Non-reactive (NonReactive) 02/10/19 14:34 Hep Bs Antigen Non-reactive (Negative) 02/10/19 14:34 Hep B Core IgM Ab Non-reactive (NonReactive) 02/10/19 14:34 Non-reactive (NonReactive) 02/10/19 14:34 Blood Type B POSITIVE 02/12/19 12:20 Antibody Screen Negative 02/12/19 12:20 Crossmatch See Detail 02/12/19 12:20 Active Medications - Current Medications Current Medications: Generic Name Dose Route Start Last Admin Trade Name Freq PRN Reason Stop Dose Admin Acetaminophen 500 mg 02/11/19 15:40 02/11/19 19:31 Tylenol PO 500 mg Q6H PRN Administration Pain, Mild (1-3) Desmopressin Acetate 2 mcg 02/09/19 22:00 02/13/19 10:05 Ddavp IV 2 mcg Q12HR ROSELINE Administration Epoetin Jean Carlos 20,000 unit 02/10/19 10:32 02/12/19 15:20 Procrit IV 20,000 unit MARCELA PRN Administration hemodialysis Insulin Human Lispro 0 unit 02/10/19 22:00 02/13/19 07:50 Humalog SUB-Q Not Given [facility] Protocol Ondansetron HCl 4 mg 02/09/19 18:48 02/09/19 23:26 Zofran IV 4 mg Q4H PRN Administration Vomiting Pantoprazole Sodium 40 mg 02/13/19 22:00 Protonix PO BID [facility] Senna 17.2 mg 02/12/19 22:00 02/12/19 21:52 Senokot PO Not Given QHS [facility] Sucralfate 1 gm 02/13/19 16:30 Carafate PO [facility] Nutrition/Malnutrition Assess - Dietary Evaluation Nutrition/Malnutrition Findings: Nutrition Notes Start: 02/10/19 15:16 Freq: Status: Active Protocol: Document 02/12/19 17:18 OH (Rec: 02/12/19 17:24 OH [id number]) Nutrition Notes Initial or Follow up Reassessment Current Diet Full liquid Pertinent Medications Reviewed Height 5 ft 3 in Weight 58.967 kg Eighty Four Body Weight (kg) 52.27 BMI 23.0 Subjective/Other Information f/u: Pt. lying in bed. Temporal wasting present. Pt. appears very frail. Pt. appears to be confused about appetite/swallowing difficulties. Pt. would like to increase tray options to increase kcals/PRO vs supplements. RD will d/c Ensure. Per RN pt. w/o swallowing difficulty. Diet recently advanced to full liquid. Percent of energy/protein needs met: <50/50% Burn Absent Trauma Absent Current % PO Poor (25-49%) Body Fat Depletion Mild depletion (non-severe) Muscle Mass Mild Depletion (non-severe) Protein-Calorie Malnutrition Severe #1 Nutrition Diagnosis Inadequate oral intake Etiology Hx GI bleed, ascites As Evidenced by Signs and Symptoms po intake <75%/full liquid diet Is Patient Ambulatory and/or Out of Bed No REE-([facility]-confined to bed) 1377.324 Kcal/Kg value to use for calculation 30 Approximate Energy Requirements Using 1769 kcal/Kg Additional Notes Protein Needs: 71-118g (1.2-2g /kg) Fluid Needs: 1 ml/kcal Nutrition Intervention Change Diet Order: Advance diet when medically able Goal #1 Diet advancement Goal #2 po intake to increase to >75% Anticipated Discharge Needs: Unable to determine at this time Follow-Up By: 02/14/19 Additional Comments Follow for PO and ONS intakes, diet advancement, malnutrition assessment
[2019-02-13] MEDS: ZOFRAN IV PRN (18:40)
[2019-02-13] MEDS: CARAFATE PO SCH ×2 (18:40→22:27)
[2019-02-13] MEDS: PROTONIX PO SCH (22:28)
[2019-02-13] MEDS: SENOKOT PO SCH (22:29)
[2019-02-14 05:47] LABS: Calcium 7.6 mg/dL (8.4-10.2)
[2019-02-14 06:49] LABS: Hematocrit 25.2 % (30.3-42.9); Hemoglobin 8.5 gm/dl (10.1-14.3); Mean Corpuscular HGB Conc 34 % (30-34); Mean Corpuscular Volume 90 fl (79-97)
[2019-02-14 07:56] LABS: Platelet Count 70 K/mm3 (140-440)
[2019-02-14] MEDS: CARAFATE PO SCH ×4 (08:05→22:29)
[2019-02-14] MEDS: HumaLOG SUB-Q SCH ×4 (08:05→22:18)
[2019-02-14] MEDS: PROTONIX PO SCH ×2 (10:20→22:30)
[2019-02-14] MEDS: DDAVP IV SCH (10:20)
[2019-02-14] MEDS: PROCRIT IV PRN (10:43)
[2019-02-14] MEDS ORDERED: TYLENOL PO PRN ×2 (11:30→17:12)
--- NOTE | 2019-02-14 11:32 | Progress Note ---
Assessment and Plan Assessment and plan: Brief history: 58-year-old female patient with significant past medical history of end-stage renal disease on hemodialysis, hepatitis C, GI bleeding in the past, recently admitted in [facility] discharged a few days ago was admitted through the emergency room with complaints of hematemesis, black Stools for the last 2-3 days history evaluation is consistent hemoglobin of 3.7 and severe GI bleeding, received stat blood transfusion and and had an emergency EGD, continued to bleed,IR was consulted, underwent gastric artery embolization, patient received total 7 unit of PRBC, hemoglobin still in the lower range GI planning repeat EGD today as well as possible abdominal paracentesis. Patient also has history of end-stage renal disease on hemodialysis GI, pulmonary critical, IR, nephrology following the patient Per EGD report . Large ulcer (4cm) on lesser curve; no visible vessel - May have been source of bleeding, but may be 2nd embolization - Biopsy taken of the margins but does not appear malignant 2. Mild gastric, biopsy of the antrum 3. Small hiatal hernia Recomendation 1. OK to advance diet. 2. Protonix BID and carafate x 1 week. 3. F/U Path. 4. OK to transfer to Rehab if hct stable over next 24-48 hours. Acute Blood loss anemia --Mild drop in H&H this morning; transfuse 1 unit of PRBC Toprol 7 units since admission, monitor H&H transfuse additional GI following, egd reported as noted above. -- Acute severe upper GI bleeding; present on admission 02/09/19.s/p EGD Normal esophagus, no varices. 4 cm hiatal hernia, no obvious [place] tear Gastric fundus and greater curve of body obscured by clot and small amount of fresh blood. No active pooling or bleeding noted. Normal antrum, cardia, and duodenum. protonix drip, GI following --Patient continued to bleed; IR evaluated 02/10/19 s/p Left gastric artery embolization and 20 mcg DDAVP and will be discontinued administered at the conclusion of the procedure. Patient tolerated the procedure well. --Severe acute blood loss anemia;s/p total 6+1 units PRBC today Hb 8.7, monitor H&H and transfuse as needed H&H --Thrombocytopenia;s/p platelets transfusion . --Hypovolemic shock /Hypotension; secondary to acute blood loss; Blood transfusion, IV fluids, s/p Levophed --History of hepatitis C; no evidence of cirrhosis liver on CT LFTs within normal range, no varices on EGD However patient has thrombocytopenia, coagulopathy --Ascites; moderate to large consider abdominal paracentesis as needed if needed --End-stage renal disease on hemodialysis; Nephrology following hemodialysis per schedule --Severe malnutrition/hypoalbuminemia; nutrition supplements Supportive care, nutrition consult --DVT prophylaxis; SCD No pharmacologic anticoagulation due to GI bleeding --CODE STATUS full code Consults and recommendations noted and appreciated Monitor closely and adjust management as needed Disposition;IN AM IF H/H STABLE Disposition per GI Discharge when medically stable Transfer History Interval history: Patient seen and examined, No new complaints. Resting comfortably. Dialysis being done today Hospitalist Physical - Physical exam Narrative exam: General appearance: Present: no acute distress, cachectic, - EENT Eyes: Present: PERRL, EOM intact - Neck Neck: Present: supple, normal ROM - Respiratory Respiratory effort: normal Respiratory: bilateral: diminished, negative: rales, rhonchi, wheezing - Cardiovascular Rhythm: regular Heart Sounds: Present: S1 & S2 - Extremities Extremities: no ischemia, No edema - Abdominal General gastrointestinal: soft, non-tender, non-distended, normal bowel sounds, other (ascites) - Integumentary Integumentary: Present: clear, warm - Psychiatric Psychiatric: appropriate mood/affect, cooperative - Neurologic Neurologic: moves all extremities - Constitutional Vitals: Temp Pulse Resp BP Pulse Ox 97.3 F L 79 11 L 91/56 100 02/14/19 09:15 02/14/19 11:15 02/14/19 11:00 02/14/19 11:15 02/14/19 11:00 General appearance: Present: no acute distress, cachectic, disheveled Results - Labs CBC & Chem 7: 02/14/19 04:38 02/14/19 04:38 Labs: Laboratory Last Values WBC 5.1 K/mm3 (4.5-11.0) 02/14/19 04:38 RBC 2.80 M/mm3 (3.65-5.03) L 02/14/19 04:38 Hgb 8.5 gm/dl (10.1-14.3) L 02/14/19 04:38 Hct 25.2 % (30.3-42.9) L 02/14/19 04:38 MCV 90 fl (79-97) 02/14/19 04:38 MCH 30 pg (28-32) 02/14/19 04:38 MCHC 34 % (30-34) 02/14/19 04:38 RDW 15.0 % (13.2-15.2) 02/14/19 04:38 Plt Count 70 K/mm3 (140-440) L 02/14/19 04:38 Lymph % (Auto) 12.8 % (13.4-35.0) L 02/13/19 04:21 [place] % (Auto) 5.2 % (0.0-7.3) 02/13/19 04:21 Eos % (Auto) 0.0 % (0.0-4.3) 02/13/19 04:21 Baso % (Auto) 0.6 % (0.0-1.8) 02/13/19 04:21 Lymph # 0.7 K/mm3 (1.2-5.4) L 02/13/19 04:21 [place] # 0.3 K/mm3 (0.0-0.8) 02/13/19 04:21 Eos # 0.0 K/mm3 (0.0-0.4) 02/13/19 04:21 Baso # 0.0 K/mm3 (0.0-0.1) 02/13/19 04:21 Seg Neutrophils % 81.4 % (40.0-70.0) H 02/13/19 04:21 Seg Neutrophils # 4.7 K/mm3 (1.8-7.7) 02/13/19 04:21 PT 15.5 Sec. (12.2-14.9) H 02/13/19 04:21 INR 1.26 (0.87-1.13) H 02/13/19 04:21 APTT 39.6 Sec. (24.2-36.6) H 02/10/19 13:34 150 mg/dl (211-480) L 02/10/19 13:34 Sodium 138 mmol/L (137-145) 02/14/19 04:38 Potassium 3.6 mmol/L (3.6-5.0) 02/14/19 04:38 Chloride 101.8 mmol/L (98-107) 02/14/19 04:38 Carbon Dioxide 28 mmol/L (22-30) 02/14/19 04:38 12 mmol/L 02/14/19 04:38 BUN 31 mg/dL (7-17) H 02/14/19 04:38 3.4 mg/dL (0.7-1.2) H 02/14/19 04:38 Estimated GFR 17 ml/min 02/14/19 04:38 9 % 02/14/19 04:38 Glucose 100 mg/dL (65-100) 02/14/19 04:38 POC Glucose 237 (70-105) H 02/14/19 11:28 Calcium 7.6 mg/dL (8.4-10.2) L 02/14/19 04:38 Phosphorus 2.50 mg/dL (2.5-4.5) 02/13/19 04:21 Magnesium 1.80 mg/dL (1.7-2.3) 02/13/19 04:21 0.40 mg/dL (0.1-1.2) 02/13/19 04:21 AST 8 units/L (5-40) 02/13/19 04:21 ALT < 5 units/L (7-56) L 02/13/19 04:21 33 units/L (35-129) L 02/13/19 04:21 5.6 g/dL (6.3-8.2) L 02/13/19 04:21 2.6 g/dL (3.9-5) L 02/13/19 04:21 0.9 % 02/13/19 04:21 Hepatitis A IgM Ab Non-reactive (NonReactive) 02/10/19 14:34 Hep Bs Antigen Non-reactive (Negative) 02/10/19 14:34 Hep B Core IgM Ab Non-reactive (NonReactive) 02/10/19 14:34 Non-reactive (NonReactive) 02/10/19 14:34 Blood Type B POSITIVE 02/12/19 12:20 Antibody Screen Negative 02/12/19 12:20 Crossmatch See Detail 02/12/19 12:20 Active Medications - Current Medications Current Medications: Generic Name Dose Route Start Last Admin Trade Name Freq PRN Reason Stop Dose Admin Acetaminophen 500 mg 02/11/19 15:40 02/11/19 19:31 Tylenol PO 500 mg Q6H PRN Administration Pain, Mild (1-3) Acetaminophen 650 mg 02/14/19 11:30 Tylenol PO Q12HR PRN Non Cardiac Pain or Temp>100.5 Desmopressin Acetate 2 mcg 02/09/19 22:00 02/14/19 10:20 Ddavp IV 2 mcg Q12HR ROSELINE Administration Epoetin Jean Carlos 20,000 unit 02/10/19 10:32 02/14/19 10:43 Procrit IV 20,000 unit MARCELA PRN Administration hemodialysis Fluticasone Propionate 50 mcg 02/15/19 10:00 Flonase NS QDAY [facility] Insulin Human Lispro 0 unit 02/10/19 22:00 02/14/19 08:05 Humalog SUB-Q Not Given [facility] Protocol Miscellaneous Medication 80 mg 02/14/19 22:00 Atorvastatin [Lipitor] PO QHS [facility] Ondansetron HCl 4 mg 02/09/19 18:48 02/13/19 18:40 Zofran IV 4 mg Q4H PRN Administration Vomiting Pantoprazole Sodium 40 mg 02/13/19 22:00 02/14/19 10:20 Protonix PO 40 mg BID [facility] Administration Polyethylene Glycol 17 gm 02/15/19 10:00 Miralax 3350 PO QDAY [facility] Senna 17.2 mg 02/12/19 22:00 02/13/19 22:29 Senokot PO Not Given [facility]HS [facility] Sucralfate 1 gm 02/13/19 16:30 02/14/19 08:05 Carafate PO 1 gm [facility] Administration Nutrition/Malnutrition Assess - Dietary Evaluation Nutrition/Malnutrition Findings: Nutrition Notes Start: 02/10/19 15:16 Freq: Status: Active Protocol: Document 02/12/19 17:18 OH (Rec: 02/12/19 17:24 OH [id number]) Nutrition Notes Initial or Follow up Reassessment Current Diet Full liquid Pertinent Medications Reviewed Height 5 ft 3 in Weight 58.967 kg [place] Body Weight (kg) 52.27 BMI 23.0 Subjective/Other Information f/u: Pt. lying in bed. Temporal wasting present. Pt. appears very frail. Pt. appears to be confused about appetite/swallowing difficulties. Pt. would like to increase tray options to increase kcals/PRO vs supplements. RD will d/c Ensure. Per RN pt. w/o swallowing difficulty. Diet recently advanced to full liquid. Percent of energy/protein needs met: <50/50% Burn Absent Trauma Absent Current % PO Poor (25-49%) Body Fat Depletion Mild depletion (non-severe) Muscle Mass Mild Depletion (non-severe) Protein-Calorie Malnutrition Severe #1 Nutrition Diagnosis Inadequate oral intake Etiology Hx GI bleed, ascites As Evidenced by Signs and Symptoms po intake <75%/full liquid diet Is Patient Ambulatory and/or Out of Bed No REE-([facility]-confined to bed) 1377.324 Kcal/Kg value to use for calculation 30 Approximate Energy Requirements Using 1769 kcal/Kg Additional Notes Protein Needs: 71-118g (1.2-2g /kg) Fluid Needs: 1 ml/kcal Nutrition Intervention Change Diet Order: Advance diet when medically able Goal #1 Diet advancement Goal #2 po intake to increase to >75% Anticipated Discharge Needs: Unable to determine at this time Follow-Up By: 02/14/19 Additional Comments Follow for PO and ONS intakes, diet advancement, malnutrition assessment - Attestation Statement I have reviewed and agreed w/ Malnutrition eval & tx plan: Yes
--- NOTE | 2019-02-14 13:11 | Gastroenterology Progress Note ---
Assessment and Plan (1) Acute blood loss anemia Current Visit: Yes Status: Acute Plan to address problem: - Recurrent UGI bleeding ([place], [facility]) with (-) EGD x 2 for varices or obvious ulcer (both times obscured by blood) and (-) colonoscopy at [place]. - CT scan reviewed by Dr Acuna; ascites likely related to anasarca/renal disease; no convincing varices or nodular liver and spleen WNL. - S/p empiric embolization of L gastric artery 02/10 with improved vitals and labs. -s/p repeat EGD yesterday (02/13) that revealed: 1. Large ulcer (4cm) on lesser curve; no visible vessel - May have been source of bleeding, but may be 2nd embolization - Biopsy taken of the margins but does not appear malignant 2. Mild gastric, biopsy of the antrum 3. Small hiatal hernia -bx result pending-f/u in clinic -continue PPI BID and carafate x 1 week -advance diet as tolerated -continue to trend labs/H/H (transfuse as needed) and supportive care -if labs stable in am, okay to transfer to Rehab (2) Hepatitis C Current Visit: Yes Status: Acute Plan to address problem: - No prior treatment; recent dx. - Per records, HCV, but Ab here is negative. - No documentation of prior treatment. (3) Ascites Current Visit: Yes Status: Acute Plan to address problem: - No evidence of cirrhosis on scan (discussed with Dr Acuna) and HCV is negative. - Likely related to underlying poor nutrition and ESRD; OK to continue aggressive HD, and remove fluid. - Will encourage protein intake - LVP PRN (4) ESRD (end stage renal disease) on dialysis Current Visit: Yes Status: Acute Subjective Date of service: 02/14/19 Principal diagnosis: GI Bleed Interval history: No active signs of bleeding overnight or this am per nursing. Objective - Constitutional Vitals: Temp Pulse Resp BP Pulse Ox 97.4 F L 82 14 116/71 98 02/14/19 12:00 02/14/19 12:45 02/14/19 12:00 02/14/19 12:45 02/14/19 12:00 General appearance: no acute distress - Respiratory Respiratory effort: normal - Cardiovascular Rhythm: regular - Gastrointestinal General gastrointestinal: Present: soft, non-tender, distended (ascites), normal bowel sounds - Labs CBC & Chem 7: 02/14/19 04:38 02/14/19 04:38 Labs: Laboratory Results - last 24 hr 02/13/19 02/13/19 02/14/19 16:41 21:40 04:38 WBC 5.1 RBC 2.80 L Hgb 8.5 L Hct 25.2 L MCV 90 MCH 30 MCHC 34 RDW 15.0 Plt Count 70 L Sodium Potassium Chloride Carbon Dioxide Anion Gap BUN Creatinine Estimated GFR BUN/Creatinine Ratio Glucose POC Glucose 150 H 174 H Calcium 02/14/19 02/14/19 02/14/19 04:38 08:25 11:28 WBC RBC Hgb Hct MCV MCH MCHC RDW Plt Count Sodium 138 Potassium 3.6 Chloride 101.8 Carbon Dioxide 28 Anion Gap 12 BUN 31 H Creatinine 3.4 H Estimated GFR 17 BUN/Creatinine Ratio 9 Glucose 100 POC Glucose 88 237 H Calcium 7.6 L
--- NOTE | 2019-02-14 13:27 | Progress Note ---
Assessment and Plan Imp: 1. UGIB s/p embolization procedure per IR & EGD x 2 2. Acute blood loss anemia 3. Thrombocytopenia 4. Ascites 5. ESRD 6. Severe protein/calorie malnutrition Rec: 1. Monitor H/H; holding off on additional PRBCs for now 2. PPI; f/u GI recs 3. DDAVP prn re-bleeding 4. Keep platelets > 50K if active bleeding 5. SCDs at all times 6. Optimize nutrition & volume removal if BP tolerates; for paracentesis today 7. Consider removal of femoral CVL 8. Try to ambulate/mobilize 9. Pulm-rojas stable Plan of care reviewed w/ patient, she understands/agrees Subjective Date of service: 02/14/19 Principal diagnosis: GI Bleed Interval history: Awake, alert, undergoing HD when I saw her. No active bleeding. Blood in the rectal tube bag is old per RN. F/u EGD done 02/13/19 w/o active bleeding. Denies SOB, chest pain. No obvious complaints currently. On 2L NC. Active Medications Acetaminophen (Tylenol) 500 mg PO Q6H PRN PRN Reason: Pain, Mild (1-3) Atorvastatin Calcium (Lipitor) 80 mg PO QHS [facility] Epoetin Jean Carlos (Procrit) 20,000 unit IV MARCELA PRN PRN Reason: hemodialysis Last Admin: 02/14/19 10:43 Dose: 20,000 unit Documented by: Fluticasone Propionate (Flonase) 50 mcg NS QDAY [facility] Insulin Human Lispro (Humalog) 0 unit SUB-Q [facility]; Protocol Last Admin: 02/14/19 12:30 Dose: 3 unit Documented by: Ondansetron HCl (Zofran) 4 mg IV Q4H PRN PRN Reason: Vomiting Last Admin: 02/13/19 18:40 Dose: 4 mg Documented by: Pantoprazole Sodium (Protonix) 40 mg PO BID [facility] Last Admin: 02/14/19 10:20 Dose: 40 mg Documented by: Sucralfate (Carafate) 1 gm PO [facility] Last Admin: 02/14/19 12:29 Dose: 1 gm Documented by: Objective Vital Signs - 12hr 02/14/19 02/14/19 02/14/19 01:30 01:46 02:00 Temperature Pulse Rate 67 68 66 Pulse Rate [ From Monitor] Respiratory 9 L 10 L 10 L Rate Blood Pressure 104/68 104/68 111/67 O2 Sat by Pulse 100 100 100 Oximetry O2 Sat by Pulse Oximetry [ Anterior Bilateral Throughout] 02/14/19 02/14/19 02/14/19 02:16 02:30 02:46 Temperature Pulse Rate 69 68 68 Pulse Rate [ From Monitor] Respiratory 10 L 10 L 9 L Rate Blood Pressure 111/67 104/65 111/67 O2 Sat by Pulse 100 100 100 Oximetry O2 Sat by Pulse Oximetry [ Anterior Bilateral Throughout] 02/14/19 02/14/19 02/14/19 03:00 03:16 03:30 Temperature Pulse Rate 68 69 69 Pulse Rate [ From Monitor] Respiratory 10 L 10 L 11 L Rate Blood Pressure 101/62 101/62 92/57 O2 Sat by Pulse 100 100 Oximetry O2 Sat by Pulse Oximetry [ Anterior Bilateral Throughout] 02/14/19 02/14/19 02/14/19 03:46 04:00 04:16 Temperature 97.8 F Pulse Rate 74 70 69 Pulse Rate [ 73 From Monitor] Respiratory 10 L 9 L 10 L Rate Blood Pressure 92/57 100/60 92/57 O2 Sat by Pulse 100 100 100 Oximetry O2 Sat by Pulse Oximetry [ Anterior Bilateral Throughout] 02/14/19 02/14/19 02/14/19 04:30 04:46 05:00 Temperature Pulse Rate 73 79 75 Pulse Rate [ From Monitor] Respiratory 10 L 12 14 Rate Blood Pressure 97/62 97/62 123/74 O2 Sat by Pulse 100 100 Oximetry O2 Sat by Pulse Oximetry [ Anterior Bilateral Throughout] 02/14/19 02/14/19 02/14/19 05:16 05:30 05:46 Temperature Pulse Rate 75 80 75 Pulse Rate [ From Monitor] Respiratory 11 L 10 L 13 Rate Blood Pressure 123/74 102/67 102/67 O2 Sat by Pulse 100 100 100 Oximetry O2 Sat by Pulse Oximetry [ Anterior Bilateral Throughout] 02/14/19 02/14/19 02/14/19 06:00 06:16 06:30 Temperature Pulse Rate 76 82 78 Pulse Rate [ From Monitor] Respiratory 12 15 13 Rate Blood Pressure 116/72 119/79 O2 Sat by Pulse 100 98 100 Oximetry O2 Sat by Pulse Oximetry [ Anterior Bilateral Throughout] 02/14/19 02/14/19 02/14/19 06:45 07:00 08:00 Temperature 97.3 F L Pulse Rate 74 74 73 Pulse Rate [ 75 From Monitor] Respiratory 12 11 L 10 L Rate Blood Pressure 116/72 106/70 95/63 O2 Sat by Pulse 100 100 99 Oximetry O2 Sat by Pulse Oximetry [ Anterior Bilateral Throughout] 02/14/19 02/14/19 02/14/19 08:54 09:00 09:15 Temperature 97.3 F L Pulse Rate 78 77 Pulse Rate [ From Monitor] Respiratory 12 12 Rate Blood Pressure 121/74 84/53 O2 Sat by Pulse 100 100 Oximetry O2 Sat by Pulse 100 Oximetry [ Anterior Bilateral Throughout] 02/14/19 02/14/19 02/14/19 09:30 09:45 10:00 Temperature Pulse Rate 79 80 77 Pulse Rate [ From Monitor] Respiratory 11 L Rate Blood Pressure 88/56 88/60 96/61 O2 Sat by Pulse Oximetry O2 Sat by Pulse Oximetry [ Anterior Bilateral Throughout] 02/14/19 02/14/19 02/14/19 10:15 10:30 10:46 Temperature Pulse Rate 80 76 76 Pulse Rate [ From Monitor] Respiratory Rate Blood Pressure 90/60 101/62 88/58 O2 Sat by Pulse Oximetry O2 Sat by Pulse Oximetry [ Anterior Bilateral Throughout] 02/14/19 02/14/19 02/14/19 11:00 11:15 11:30 Temperature Pulse Rate 78 79 83 Pulse Rate [ From Monitor] Respiratory 11 L Rate Blood Pressure 92/56 91/56 106/62 O2 Sat by Pulse 100 Oximetry O2 Sat by Pulse Oximetry [ Anterior Bilateral Throughout] 02/14/19 02/14/19 02/14/19 11:45 12:00 12:01 Temperature 97.4 F L Pulse Rate 80 80 81 Pulse Rate [ 80 From Monitor] Respiratory 11 L Rate Blood Pressure 104/63 118/72 118/72 O2 Sat by Pulse 78 L Oximetry O2 Sat by Pulse Oximetry [ Anterior Bilateral Throughout] 02/14/19 02/14/19 02/14/19 12:16 12:30 12:45 Temperature Pulse Rate 81 84 82 Pulse Rate [ From Monitor] Respiratory Rate Blood Pressure 94/60 106/61 116/71 O2 Sat by Pulse Oximetry O2 Sat by Pulse Oximetry [ Anterior Bilateral Throughout] 02/14/19 02/14/19 13:00 13:22 Temperature 97.4 F L Pulse Rate 93 H 86 Pulse Rate [ From Monitor] Respiratory 12 Rate Blood Pressure 96/60 116/73 O2 Sat by Pulse Oximetry O2 Sat by Pulse 100 Oximetry [ Anterior Bilateral Throughout] Constitutional: no acute distress, alert Eyes: non-icteric ENT: oropharynx moist Neck: supple Effort: normal Ascultation: Bilateral: clear (anteriorly) Cardiovascular: regular rate and rhythm (no mrg) Gastrointestinal: normoactive bowel sounds, soft, non-tender, other (distended; + ascites) Integumentary: normal Extremities: no cyanosis, edema (1+ generalized edema) Neurologic: normal mental status, non-focal exam, pupils equal and round Psychiatric: mood appropriate, affect normal CBC and BMP: 02/14/19 04:38 02/14/19 04:38 ABG, PT/INR, D-dimer: PT/INR, D-dimer PT 15.5 Sec. (12.2-14.9) H 02/13/19 04:21 INR 1.26 (0.87-1.13) H 02/13/19 04:21 Abnormal lab findings: Abnormal Labs 02/09/19 02/09/19 02/09/19 07:08 07:08 07:08 WBC 3.8 L RBC 1.30 L Hgb 3.7 L* Hct 11.3 L* MCHC RDW 16.5 H Plt Count 70 L Lymph % (Auto) Lymph # 0.7 L Seg Neutrophils % 78.0 H PT 16.1 H INR 1.33 H APTT Fibrinogen BUN 43 H Creatinine 4.1 H Glucose 138 H POC Glucose Calcium 7.6 L Magnesium ALT < 5 L Alkaline Phosphatase 28 L Total Protein 5.3 L Albumin 2.4 L Crossmatch 02/09/19 02/09/19 02/09/19 07:08 14:02 18:56 WBC 4.1 L RBC 2.16 L Hgb 6.4 L 5.9 L* Hct 18.4 L* D 18.1 L* MCHC 35 H RDW 15.8 H Plt Count 68 L Lymph % (Auto) Lymph # Seg Neutrophils % PT INR APTT Fibrinogen BUN Creatinine Glucose POC Glucose Calcium Magnesium ALT Alkaline Phosphatase Total Protein Albumin Crossmatch See Detail 02/10/19 02/10/19 02/10/19 04:00 04:00 13:34 WBC RBC 2.81 L Hgb 6.4 L 8.6 L Hct 18.3 L* 25.1 L D MCHC RDW Plt Count 116 L Lymph % (Auto) 12.4 L Lymph # 0.7 L Seg Neutrophils % 83.4 H PT 17.0 H INR 1.42 H APTT Fibrinogen BUN Creatinine Glucose POC Glucose Calcium Magnesium ALT Alkaline Phosphatase Total Protein Albumin Crossmatch 02/10/19 02/10/19 02/10/19 13:34 13:34 18:38 WBC RBC Hgb 8.7 L Hct 24.8 L MCHC RDW Plt Count Lymph % (Auto) Lymph # Seg Neutrophils % PT 16.3 H INR 1.35 H APTT 39.6 H Fibrinogen 150 L BUN 57 H Creatinine 4.2 H Glucose 130 H POC Glucose Calcium 7.4 L Magnesium ALT < 5 L Alkaline Phosphatase 29 L Total Protein 5.1 L Albumin 2.5 L Crossmatch 02/10/19 02/11/19 02/11/19 21:28 05:35 05:35 WBC RBC 2.78 L Hgb 8.7 L Hct 24.7 L MCHC 35 H RDW Plt Count 94 L Lymph % (Auto) 7.8 L Lymph # 0.4 L Seg Neutrophils % 88.6 H PT INR APTT Fibrinogen BUN 41 H Creatinine 3.5 H Glucose 133 H POC Glucose 142 H Calcium 7.9 L Magnesium ALT < 5 L Alkaline Phosphatase 32 L Total Protein 5.7 L Albumin 2.9 L Crossmatch 02/11/19 02/11/19 02/11/19 08:55 12:39 17:33 WBC RBC Hgb Hct MCHC RDW Plt Count Lymph % (Auto) Lymph # Seg Neutrophils % PT INR APTT Fibrinogen BUN Creatinine Glucose POC Glucose 129 H 139 H 133 H Calcium Magnesium ALT Alkaline Phosphatase Total Protein Albumin Crossmatch 02/11/19 02/12/19 02/12/19 22:01 04:08 04:20 WBC RBC 2.27 L Hgb 7.1 L Hct 20.2 L MCHC 35 H RDW Plt Count 84 L Lymph % (Auto) 8.3 L Lymph # 0.5 L Seg Neutrophils % 86.6 H PT INR APTT Fibrinogen BUN 43 H Creatinine 3.8 H Glucose 136 H POC Glucose 194 H Calcium 7.3 L Magnesium 1.60 L ALT < 5 L Alkaline Phosphatase 30 L Total Protein 5.4 L Albumin 2.5 L Crossmatch 02/12/19 02/12/19 02/12/19 08:33 11:37 12:20 WBC RBC Hgb Hct MCHC RDW Plt Count Lymph % (Auto) Lymph # Seg Neutrophils % PT INR APTT Fibrinogen BUN Creatinine Glucose POC Glucose 132 H 169 H Calcium Magnesium ALT Alkaline Phosphatase Total Protein Albumin Crossmatch See Detail 02/12/19 02/12/19 02/12/19 16:18 16:59 20:24 WBC RBC 3.26 L Hgb 10.0 L 10.0 L Hct 29.2 L D 28.5 L MCHC RDW Plt Count 82 L Lymph % (Auto) 7.9 L Lymph # 0.5 L Seg Neutrophils % 86.5 H PT INR APTT Fibrinogen BUN Creatinine Glucose POC Glucose 164 H Calcium Magnesium ALT Alkaline Phosphatase Total Protein Albumin Crossmatch 02/12/19 02/13/19 02/13/19 21:18 04:21 04:21 WBC RBC 2.93 L Hgb 9.2 L Hct 26.3 L MCHC 35 H RDW Plt Count 75 L Lymph % (Auto) 12.8 L Lymph # 0.7 L Seg Neutrophils % 81.4 H PT INR APTT Fibrinogen BUN 30 H Creatinine 3.2 H Glucose 110 H POC Glucose 126 H Calcium 7.4 L Magnesium ALT < 5 L Alkaline Phosphatase 33 L Total Protein 5.6 L Albumin 2.6 L Crossmatch 02/13/19 02/13/19 02/13/19 04:21 12:28 16:41 WBC RBC Hgb Hct MCHC RDW Plt Count Lymph % (Auto) Lymph # Seg Neutrophils % PT 15.5 H INR 1.26 H APTT Fibrinogen BUN Creatinine Glucose POC Glucose 117 H 150 H Calcium Magnesium ALT Alkaline Phosphatase Total Protein Albumin Crossmatch 02/13/19 02/14/19 02/14/19 21:40 04:38 04:38 WBC RBC 2.80 L Hgb 8.5 L Hct 25.2 L MCHC RDW Plt Count 70 L Lymph % (Auto) Lymph # Seg Neutrophils % PT INR APTT Fibrinogen BUN 31 H Creatinine 3.4 H Glucose POC Glucose 174 H Calcium 7.6 L Magnesium ALT Alkaline Phosphatase Total Protein Albumin Crossmatch 02/14/19 11:28 WBC RBC Hgb Hct MCHC RDW Plt Count Lymph % (Auto) Lymph # Seg Neutrophils % PT INR APTT Fibrinogen BUN Creatinine Glucose POC Glucose 237 H Calcium Magnesium ALT Alkaline Phosphatase Total Protein Albumin Crossmatch Chest x-ray: report reviewed, image reviewed
--- NOTE | 2019-02-14 15:24 | Procedure Note ---
Date of procedure: 02/14/19 Pre-op diagnosis: ascites Post-op diagnosis: same Procedure: US paracentesis Findings: moderate ascites Anesthesia: local Surgeon: MALU ALMARAZ Estimated blood loss: none Pathology: none Specimen disposition: discarded Condition: stable Disposition: floor
[2019-02-14] MEDS ORDERED: NON-FORMULARY (Atorvastatin [Lipitor] 80 MG) PO SCH (22:00)
[2019-02-14] MEDS: ZOFRAN IV PRN (22:29)
[2019-02-15] MEDS: HumaLOG SUB-Q SCH ×3 (08:00→14:13)
--- NOTE | 2019-02-15 08:00 | Ultrasound Report ---
ULTRASOUND-GUIDED PARACENTESIS HISTORY: therapeutic paracentesis secondary to ascites. PROCEDURE: The risks (including but not limited to bleeding, infection, and bowel injury) and benefi ts were explained to the patient and informed consent was obtained. A time out procedure was perform ed. Ultrasound was used to evaluate the abdomen and locate the largest ascites fluid pocket. Once the sk in was marked, the procedure site was prepped and draped in the usual sterile fashion and lidocaine w as used for local anesthesia. A skin constance was made and a 5-Welsh paracentesis catheter was placed. The patient was monitored closely throughout the procedure, and a total of 8300 mL of clear yellow f luid was aspirated. No labs were ordered by the requesting physician. The patient tolerated the procedure well with no complications. IMPRESSION: Successful ultrasound-guided paracentesis. Signer Name: Travis Waggoner Jr, MD Signed: 02/15/2019 7:56 AM Workstation Name: [id number]
--- NOTE | 2019-02-15 09:37 | Progress Note ---
Subjective Principal diagnosis: GI Bleed Interval history: Patient was seen today for follow-up on multiple renal related issues Events of this hospitalization were noted Patient admitted with GI bleed Interdisciplinary notes were also reviewed Vitals intake output medications were reviewed Past medical history: Reviewed Family, social history: Reviewed Allergies: Reviewed Physical examination General: No acute distress Vitals: Reviewed HEENT: Oral mucosa moist no icterus Neck: Supple no thyromegaly nodular mass or JVD Central venous catheter site: Unremarkable Chest: Clear to auscultation anteriorly Heart: Regular rate and rhythm S1-S2 heard no S3-S4 Abdomen: Soft nontender no suprapubic masses no organomegaly Dull flanks Extremity: Dry skin less than 1+ edema Psych: No evidence of any agitation and aggression noted Derm: No petechial rash Assessment and plan: End stage renal disease: Patient will continue with hemodialysis as tolerated on Tuesday and Tuesday schedule Patient will need dialysis at her labs for follow-up labs Her blood pressure appears to be doing better today Recommend avoiding Tylenol with liver disease Already on erythropoietin for anemia Status post ultrasound-guided paracentesis Called next of kin Rolando on [phone] who is the son, did not cigar packer and picker the phone had to leave a message Tried calling on [phone], d/w poa daughter patient has been admitted with upper GI bleed noted to have hiatal hernia currently being followed by gastroenterology/patient has a history of hepatitis C chronic CAT scan showed evidence of large amount of ascites with possible cirrhosis Anemia has been complicated by blood loss, packed red blood cell transfusion as needed Anemia and end-stage renal disease: To monitor, on erythropoietin 20,000 units with dialysis Order workup for anemia dialysis access: Central venous catheter Upon admission hemoglobin was 6.4/currently on desmopressin Secondary hyperparathyroidism: Periodically check vitamin D and phosphorus level along with PTH Hypertension and volume: To monitor and follow low systolic blood pressure under 150, patient is a very poor historian/ Multiple underlying comorbidities including schizophrenia, left cerebral CVA, dialysis, hepatitis C, case was discussed with ICU nurse to obtain a cortisol level, advised to discontinue IV fluid Prognosis: Guarded/possibly poor We'll continue to follow and make recommendation from renal standpoint Objective - Vital Signs Vital signs: Vital Signs - 12hr 02/14/19 02/14/19 02/15/19 22:00 23:44 06:40 Temperature 97.3 F L 97.5 F L Pulse Rate 79 78 Respiratory 18 20 Rate Blood Pressure 139/75 131/72 O2 Sat by Pulse 100 100 100 Oximetry - Lab 02/14/19 04:38 02/14/19 04:38 Most recent lab results Calcium 7.6 mg/dL (8.4-10.2) L 02/14/19 04:38 Phosphorus 2.50 mg/dL (2.5-4.5) 02/13/19 04:21 Magnesium 1.80 mg/dL (1.7-2.3) 02/13/19 04:21 Medications & Allergies - Medications Allergies/Adverse Reactions: Allergies guaifenesin [From Robitussin] Allergy (Verified 02/09/19 07:00) Hives Penicillins Allergy (Verified 02/09/19 07:00) Hives Home Medications: Home Medications Medication Instructions Recorded Confirmed Last Taken Type Acetaminophen [Tylenol] 650 mg PO Q12HR PRN 02/09/19 02/09/19 Unknown History Aspirin EC 81 mg PO QDAY 02/09/19 02/09/19 Unknown History Atorvastatin [Lipitor Tab] 80 mg PO QHS 02/09/19 02/09/19 Unknown History Esomeprazole Magnesium [NexIUM] 40 mg PO Q12H 02/09/19 02/09/19 Unknown History Fluticasone [Flonase] 1 spray NS QDAY 02/09/19 02/09/19 Unknown History Lispro Insulin [HumaLOG] See Protocol SUB-Q ACHS 02/09/19 02/09/19 Unknown History Polyethylene Glycol 3350 [Miralax 17 gm PO QDAY 02/09/19 02/09/19 Unknown History 3350] Active Medications: Generic Name Dose Route Start Last Admin Trade Name Freq PRN Reason Stop Dose Admin Acetaminophen 500 mg 02/14/19 17:12 Tylenol PO Q6H PRN Pain, Mild (1-3) Atorvastatin Calcium 80 mg 02/14/19 22:00 02/14/19 22:30 Lipitor PO 80 mg QHS ROSELINE Administration Epoetin Jean Carlos 20,000 unit 02/10/19 10:32 02/14/19 10:43 Procrit IV 20,000 unit MARCELA PRN Administration hemodialysis Fluticasone Propionate 50 mcg 02/15/19 10:00 Flonase NS QDAY ROSELINE Insulin Human Lispro 0 unit 02/10/19 22:00 02/14/19 22:18 Humalog SUB-Q Not Given [facility] Protocol Ondansetron HCl 4 mg 02/09/19 18:48 02/14/19 22:29 Zofran IV 4 mg Q4H PRN Administration Vomiting Pantoprazole Sodium 40 mg 02/13/19 22:00 02/14/19 22:30 Protonix PO 40 mg BID ROSELINE Administration Sucralfate 1 gm 02/13/19 16:30 02/14/19 22:29 Carafate PO 1 gm ACHS ROSELINE Administration
[2019-02-15] MEDS ORDERED: FLONASE NS SCH (10:00)
[2019-02-15] MEDS ORDERED: MIRALAX 3350 PO SCH (10:00)
[2019-02-15 10:21] LABS: Basophils % (Auto) 0.3 % (0.0-1.8); Hemoglobin 11.4 gm/dl (10.1-14.3); Lymphocytes # (Auto) 0.6 K/mm3 (1.2-5.4); Lymphocytes % (Auto) 11.1 % (13.4-35.0); Mean Corpuscular HGB Conc 34 % (30-34); Mean Corpuscular Volume 90 fl (79-97); Monocytes # (Auto) 0.2 K/mm3 (0.0-0.8); Monocytes % (Auto) 3.5 % (0.0-7.3); Red Blood Count 3.76 M/mm3 (3.65-5.03); Red Cell Distribution Width 14.7 % (13.2-15.2)
[2019-02-15 10:23] LABS: Platelet Count 86 K/mm3 (140-440)
--- NOTE | 2019-02-15 10:37 | Gastroenterology Progress Note ---
Assessment and Plan (1) Acute blood loss anemia Current Visit: Yes Status: Acute Plan to address problem: - Recurrent UGI bleeding ([place], [facility]) with (-) EGD x 2 for varices or obvious ulcer (both times obscured by blood) and (-) colonoscopy at [place]. - CT scan reviewed by Dr Acuna; ascites likely related to anasarca/renal disease; no convincing varices or nodular liver and spleen WNL. - S/p empiric embolization of L gastric artery 02/10 with improved vitals and labs. -s/p repeat EGD (02/13) that revealed: 1. Large ulcer (4cm) on lesser curve; no visible vessel - May have been source of bleeding, but may be 2nd embolization - Biopsy taken of the margins but does not appear malignant 2. Mild gastric, biopsy of the antrum 3. Small hiatal hernia -bx negative for H pylori or malignancy -continue PPI BID and carafate x 1 week -advance diet as tolerated -H/H 11.4/34.0-trending up- continue to monitor and transfuse as needed -continue supportive care -okay to transfer to Rehab per GI standpoint on current medications as above with f/u in clinic -will sign off, please call if needed (2) Hepatitis C Current Visit: Yes Status: Acute Plan to address problem: - No prior treatment; recent dx. - Per records, HCV, but Ab here is negative. - No documentation of prior treatment. (3) Ascites Current Visit: Yes Status: Acute Plan to address problem: - No evidence of cirrhosis on scan (discussed with Dr Acuna) and HCV is negative. - Likely related to underlying poor nutrition and ESRD; OK to continue aggressive HD, and remove fluid. - Will encourage protein intake - s/p paracentesis yesterday-LVP PRN (4) ESRD (end stage renal disease) on dialysis Current Visit: Yes Status: Acute Subjective Date of service: 02/15/19 Principal diagnosis: GI Bleed Interval history: No GI complaints or active signs of bleeding overnight or this am. Objective - Constitutional Vitals: Temp Pulse Resp BP Pulse Ox 97.5 F L 78 20 131/72 100 02/15/19 06:40 02/15/19 06:40 02/15/19 06:40 02/15/19 06:40 02/15/19 06:40 General appearance: no acute distress - Respiratory Respiratory effort: normal - Gastrointestinal General gastrointestinal: Present: soft, non-tender, distended (slight-ascites improved), normal bowel sounds - Labs CBC & Chem 7: 02/15/19 09:55 02/14/19 04:38 Labs: Laboratory Results - last 24 hr 02/14/19 02/14/19 02/14/19 11:28 16:26 21:45 WBC RBC Hgb Hct MCV MCH MCHC RDW Plt Count Lymph % (Auto) [place] % (Auto) Eos % (Auto) Baso % (Auto) Lymph # [place] # Eos # Baso # Seg Neutrophils % Seg Neutrophils # Percent Retic POC Glucose 237 H 122 H 73 02/15/19 02/15/19 07:55 09:55 WBC 5.4 RBC 3.76 Hgb 11.4 Hct 34.0 D MCV 90 MCH 30 MCHC 34 RDW 14.7 Plt Count 86 L Lymph % (Auto) 11.1 L [place] % (Auto) 3.5 Eos % (Auto) 0.0 Baso % (Auto) 0.3 Lymph # 0.6 L [place] # 0.2 Eos # 0.0 Baso # 0.0 Seg Neutrophils % 85.1 H Seg Neutrophils # 4.6 Percent Retic 0.43 L POC Glucose 112 H
[2019-02-15 10:43] LABS: % Iron Saturation 43.55 %; Albumin 2.4 g/dL (3.9-5); BUN/Creatinine Ratio 7; Blood Urea Nitrogen 21 mg/dL (7-17); Calcium 7.6 mg/dL (8.4-10.2); Hemolysis Index 37; Iron 54 ug/dL (37-170); Total Iron Binding Capacity 124 mcg/dL (250-450)
[2019-02-15 10:45] LABS: Alanine Aminotransferase < 5 units/L (7-56)
[2019-02-15] MEDS: PROTONIX PO SCH (11:38)
[2019-02-15] MEDS: CARAFATE PO SCH ×2 (11:39)
--- NOTE | 2019-02-15 11:48 | Discharge Summary ---
Providers - Providers Date of Admission: 02/09/19 08:16 Attending physician: JEFERSON CALLES MD 02/09/19 08:29 Consult to Physician [CONS] Urgent Comment: Dr. Balderas spoke to Dr. Quiroz @ 08:10- [facility] Consulting Provider: BRY QUIROZ Physician Instructions: Reason For Exam: GI bleed, hypotension 02/09/19 08:38 Consult to Physician [CONS] Urgent Comment: Consulting Provider: KEYONA KAUFMAN Physician Instructions: Reason For Exam: Cr Care consu/severe anemia/hypotension/GI bleedig 02/09/19 08:40 Consult to Physician [CONS] Urgent Comment: Dr. Mendoza spoke to Dr. Lara @ 08:47- [facility] Consulting Provider: CASANDRA PARKER Physician Instructions: Reason For Exam: ESRD/HD/Severe anemia/need blood transfusion 02/09/19 14:26 Consult to Dietitian/Nutrition [CONS] Routine Physician Instructions: Reason For Exam: Reason for Consult: Malnutrition 02/11/19 18:20 Physical Therapy Evaluation and Treat [CONS] Routine Comment: Reason For Exam: Gen Debility/ICU admit Primary care physician: STACIE CARPIO Hospitalization Reason for admission: ESRD Condition: Stable Hospital course: 58-year-old female patient with significant past medical history of end-stage renal disease on hemodialysis, hepatitis C, GI bleeding in the past, recently admitted in [facility] discharged a few days ago was admitted through the emergency room with complaints of hematemesis, black Stools for the last 2-3 days history evaluation is consistent hemoglobin of 3.7 and severe GI bleeding, received stat blood transfusion and and had an emergency EGD, continued to bleed,IR was consulted, underwent gastric artery embolization, patient received total 7 unit of PRBC, hemoglobin still in the lower range GI planning repeat EGD today as well as possible abdominal paracentesis. Patient also has history of end-stage renal disease on hemodialysis Per EGD report . Large ulcer (4cm) on lesser curve; no visible vessel - May have been source of bleeding, but may be 2nd embolization - Biopsy taken of the margins but does not appear malignant 2. Mild gastric, biopsy of the antrum 3. Small hiatal hernia Recomendation 1. OK to advance diet. 2. Protonix BID and carafate x 1 week. 3. F/U Path. 4. OK to transfer to Rehab if hct stable over next 24-48 hours. Acute Blood loss anemia --Mild drop in H&H this morning; transfuseD 1 unit of PRBC Total of 7 units since admission, Underwent EGD and found to have Large Ulcer and also underwent gastric Artery Embolizations Further recommendation includes OK to advance diet. 2. Protonix BID and carafate x 1 week. 3. F/U Path. -- Acute severe upper GI bleeding; present on admission Left gastric artery embolization and 20 mcg DDAVP 02/09/19.s/p EGD Normal esophagus, no varices. 4 cm hiatal hernia, no obvious [place] tear Gastric fundus and greater curve of body obscured by clot and small amount of fresh blood. No active pooling or bleeding noted. Normal antrum, cardia, and duodenum. Changed to PPI BID on discharge, advised to --Severe acute blood loss anemia --Thrombocytopenia;s/p platelets transfusion . --Hypovolemic shock /Hypotension --History of hepatitis C; no evidence of cirrhosis liver on CT LFTs within normal range, no varices on EGD However patient has thrombocytopenia, coagulopathy --Ascites; moderate to large consider abdominal paracentesis as needed if needed --End-stage renal disease on hemodialysis; Nephrology following hemodialysis per schedule --Severe malnutrition/hypoalbuminemia; nutrition supplements Supportive care, nutrition consult Disposition: [id number] Time spent for discharge: 35 mins Core Measure Documentation - Palliative Care Palliative Care/ Comfort Measures: Not Applicable - Core Measures Any of the following diagnoses?: none Exam - Physical Exam Narrative exam: General appearance: Present: no acute distress, cachectic, - EENT Eyes: Present: PERRL, EOM intact - Neck Neck: Present: supple, normal ROM - Respiratory Respiratory effort: normal Respiratory: bilateral: diminished, negative: rales, rhonchi, wheezing - Cardiovascular Rhythm: regular Heart Sounds: Present: S1 & S2 - Extremities Extremities: no ischemia, No edema - Abdominal General gastrointestinal: soft, non-tender, non-distended, normal bowel sounds, other (ascites) - Integumentary Integumentary: Present: clear, warm - Psychiatric Psychiatric: appropriate mood/affect, cooperative - Neurologic Neurologic: moves all extremities - Constitutional Vitals: Temp Pulse Resp BP Pulse Ox 97.5 F L 78 20 131/72 100 02/15/19 06:40 02/15/19 06:40 02/15/19 06:40 02/15/19 06:40 02/15/19 06:40 Plan Activity: advance as tolerated, fall precautions Diet: low fat, renal Special Instructions: record daily BP diary Follow up with: STACIE CARPIO MD [Primary Care Provider] - 3-5 Days JAMIE KAY MD [Staff Physician] - 7 Days Forms: Accompanied Note Prescriptions: Sucralfate [Carafate] 1 gm PO ACHS #30 oral.liqd Pantoprazole [Protonix TAB] 40 mg PO BID #60 tablet
[2019-02-15 12:05] VITALS: BP 140/83
--- NOTE | 2019-02-15 13:35 | Progress Note ---
Assessment and Plan Imp: 1. UGIB s/p embolization procedure per IR & EGD x 2 2. Acute blood loss anemia 3. Thrombocytopenia 4. Ascites 5. ESRD 6. Severe protein/calorie malnutrition Rec: 1. Monitor H/H; holding off on additional PRBCs for now 2. PPI; f/u GI recs 3. DDAVP prn re-bleeding 4. Keep platelets > 50K if active bleeding 5. SCDs at all times 6. Optimize nutrition & volume removal if BP tolerates; for paracentesis today 7. Consider removal of femoral CVL 8. Try to ambulate/mobilize 9. Pulm-rojas stable Plan of care reviewed w/ patient, she understands/agrees Subjective Date of service: 02/15/19 Principal diagnosis: GI Bleed Interval history: Awake, alert. No active bleeding. Blood in the rectal tube bag is old per RN. F/u EGD done 02/13/19 w/o active bleeding. Denies SOB, chest pain. No obvious complaints currently. On 2L NC. Objective Vital Signs - 12hr 02/15/19 02/15/19 02/15/19 06:40 10:00 11:36 Temperature 97.5 F L 97.9 F Pulse Rate 78 78 Respiratory 20 18 Rate Blood Pressure 131/72 140/83 O2 Sat by Pulse 100 100 Oximetry Constitutional: no acute distress, alert Eyes: non-icteric ENT: oropharynx moist Neck: supple Effort: normal Ascultation: Bilateral: clear (anteriorly) Cardiovascular: regular rate and rhythm (no mrg) Gastrointestinal: normoactive bowel sounds, soft, non-tender, other (distended; + ascites) Integumentary: normal Extremities: no cyanosis, edema (1+ generalized edema) Neurologic: normal mental status, non-focal exam, pupils equal and round Psychiatric: mood appropriate, affect normal CBC and BMP: 02/15/19 09:55 02/15/19 09:55 ABG, PT/INR, D-dimer: PT/INR, D-dimer PT 15.5 Sec. (12.2-14.9) H 02/13/19 04:21 INR 1.26 (0.87-1.13) H 02/13/19 04:21 Abnormal lab findings: Abnormal Labs 02/09/19 02/09/19 02/09/19 07:08 07:08 07:08 WBC 3.8 L RBC 1.30 L Hgb 3.7 L* Hct 11.3 L* MCHC RDW 16.5 H Plt Count 70 L Lymph % (Auto) Lymph # 0.7 L Seg Neutrophils % 78.0 H Percent Retic PT 16.1 H INR 1.33 H APTT Fibrinogen Sodium BUN 43 H Creatinine 4.1 H Glucose 138 H POC Glucose Calcium 7.6 L Phosphorus Magnesium TIBC Transferrin ALT < 5 L Alkaline Phosphatase 28 L Total Protein 5.3 L Albumin 2.4 L PTH Intact Crossmatch 02/09/19 02/09/19 02/09/19 07:08 14:02 18:56 WBC 4.1 L RBC 2.16 L Hgb 6.4 L 5.9 L* Hct 18.4 L* D 18.1 L* MCHC 35 H RDW 15.8 H Plt Count 68 L Lymph % (Auto) Lymph # Seg Neutrophils % Percent Retic PT INR APTT Fibrinogen Sodium BUN Creatinine Glucose POC Glucose Calcium Phosphorus Magnesium TIBC Transferrin ALT Alkaline Phosphatase Total Protein Albumin PTH Intact Crossmatch See Detail 02/10/19 02/10/19 02/10/19 04:00 04:00 13:34 WBC RBC 2.81 L Hgb 6.4 L 8.6 L Hct 18.3 L* 25.1 L D MCHC RDW Plt Count 116 L Lymph % (Auto) 12.4 L Lymph # 0.7 L Seg Neutrophils % 83.4 H Percent Retic PT 17.0 H INR 1.42 H APTT Fibrinogen Sodium BUN Creatinine Glucose POC Glucose Calcium Phosphorus Magnesium TIBC Transferrin ALT Alkaline Phosphatase Total Protein Albumin PTH Intact Crossmatch 02/10/19 02/10/19 02/10/19 13:34 13:34 18:38 WBC RBC Hgb 8.7 L Hct 24.8 L MCHC RDW Plt Count Lymph % (Auto) Lymph # Seg Neutrophils % Percent Retic PT 16.3 H INR 1.35 H APTT 39.6 H Fibrinogen 150 L Sodium BUN 57 H Creatinine 4.2 H Glucose 130 H POC Glucose Calcium 7.4 L Phosphorus Magnesium TIBC Transferrin ALT < 5 L Alkaline Phosphatase 29 L Total Protein 5.1 L Albumin 2.5 L PTH Intact Crossmatch 02/10/19 02/11/19 02/11/19 21:28 05:35 05:35 WBC RBC 2.78 L Hgb 8.7 L Hct 24.7 L MCHC 35 H RDW Plt Count 94 L Lymph % (Auto) 7.8 L Lymph # 0.4 L Seg Neutrophils % 88.6 H Percent Retic PT INR APTT Fibrinogen Sodium BUN 41 H Creatinine 3.5 H Glucose 133 H POC Glucose 142 H Calcium 7.9 L Phosphorus Magnesium TIBC Transferrin ALT < 5 L Alkaline Phosphatase 32 L Total Protein 5.7 L Albumin 2.9 L PTH Intact Crossmatch 02/11/19 02/11/19 02/11/19 08:55 12:39 17:33 WBC RBC Hgb Hct MCHC RDW Plt Count Lymph % (Auto) Lymph # Seg Neutrophils % Percent Retic PT INR APTT Fibrinogen Sodium BUN Creatinine Glucose POC Glucose 129 H 139 H 133 H Calcium Phosphorus Magnesium TIBC Transferrin ALT Alkaline Phosphatase Total Protein Albumin PTH Intact Crossmatch 02/11/19 02/12/19 02/12/19 22:01 04:08 04:20 WBC RBC 2.27 L Hgb 7.1 L Hct 20.2 L MCHC 35 H RDW Plt Count 84 L Lymph % (Auto) 8.3 L Lymph # 0.5 L Seg Neutrophils % 86.6 H Percent Retic PT INR APTT Fibrinogen Sodium BUN 43 H Creatinine 3.8 H Glucose 136 H POC Glucose 194 H Calcium 7.3 L Phosphorus Magnesium 1.60 L TIBC Transferrin ALT < 5 L Alkaline Phosphatase 30 L Total Protein 5.4 L Albumin 2.5 L PTH Intact Crossmatch 02/12/19 02/12/19 02/12/19 08:33 11:37 12:20 WBC RBC Hgb Hct MCHC RDW Plt Count Lymph % (Auto) Lymph # Seg Neutrophils % Percent Retic PT INR APTT Fibrinogen Sodium BUN Creatinine Glucose POC Glucose 132 H 169 H Calcium Phosphorus Magnesium TIBC Transferrin ALT Alkaline Phosphatase Total Protein Albumin PTH Intact Crossmatch See Detail 02/12/19 02/12/19 02/12/19 16:18 16:59 20:24 WBC RBC 3.26 L Hgb 10.0 L 10.0 L Hct 29.2 L D 28.5 L MCHC RDW Plt Count 82 L Lymph % (Auto) 7.9 L Lymph # 0.5 L Seg Neutrophils % 86.5 H Percent Retic PT INR APTT Fibrinogen Sodium BUN Creatinine Glucose POC Glucose 164 H Calcium Phosphorus Magnesium TIBC Transferrin ALT Alkaline Phosphatase Total Protein Albumin PTH Intact Crossmatch 02/12/19 02/13/19 02/13/19 21:18 04:21 04:21 WBC RBC 2.93 L Hgb 9.2 L Hct 26.3 L MCHC 35 H RDW Plt Count 75 L Lymph % (Auto) 12.8 L Lymph # 0.7 L Seg Neutrophils % 81.4 H Percent Retic PT INR APTT Fibrinogen Sodium BUN 30 H Creatinine 3.2 H Glucose 110 H POC Glucose 126 H Calcium 7.4 L Phosphorus Magnesium TIBC Transferrin ALT < 5 L Alkaline Phosphatase 33 L Total Protein 5.6 L Albumin 2.6 L PTH Intact Crossmatch 02/13/19 02/13/19 02/13/19 04:21 12:28 16:41 WBC RBC Hgb Hct MCHC RDW Plt Count Lymph % (Auto) Lymph # Seg Neutrophils % Percent Retic PT 15.5 H INR 1.26 H APTT Fibrinogen Sodium BUN Creatinine Glucose POC Glucose 117 H 150 H Calcium Phosphorus Magnesium TIBC Transferrin ALT Alkaline Phosphatase Total Protein Albumin PTH Intact Crossmatch 02/13/19 02/14/19 02/14/19 21:40 04:38 04:38 WBC RBC 2.80 L Hgb 8.5 L Hct 25.2 L MCHC RDW Plt Count 70 L Lymph % (Auto) Lymph # Seg Neutrophils % Percent Retic PT INR APTT Fibrinogen Sodium BUN 31 H Creatinine 3.4 H Glucose POC Glucose 174 H Calcium 7.6 L Phosphorus Magnesium TIBC Transferrin ALT Alkaline Phosphatase Total Protein Albumin PTH Intact Crossmatch 02/14/19 02/14/19 02/15/19 11:28 16:26 07:55 WBC RBC Hgb Hct MCHC RDW Plt Count Lymph % (Auto) Lymph # Seg Neutrophils % Percent Retic PT INR APTT Fibrinogen Sodium BUN Creatinine Glucose POC Glucose 237 H 122 H 112 H Calcium Phosphorus Magnesium TIBC Transferrin ALT Alkaline Phosphatase Total Protein Albumin PTH Intact Crossmatch 02/15/19 02/15/19 02/15/19 09:55 09:55 09:55 WBC RBC Hgb Hct MCHC RDW Plt Count 86 L Lymph % (Auto) 11.1 L Lymph # 0.6 L Seg Neutrophils % 85.1 H Percent Retic 0.43 L PT INR APTT Fibrinogen Sodium 135 L BUN 21 H Creatinine 3.0 H Glucose 155 H POC Glucose Calcium 7.6 L Phosphorus 1.80 L Magnesium TIBC 124 L Transferrin 114 L ALT < 5 L Alkaline Phosphatase Total Protein 5.6 L Albumin 2.4 L PTH Intact 112.0 H Crossmatch 02/15/19 11:18 WBC RBC Hgb Hct MCHC RDW Plt Count Lymph % (Auto) Lymph # Seg Neutrophils % Percent Retic PT INR APTT Fibrinogen Sodium BUN Creatinine Glucose POC Glucose 171 H Calcium Phosphorus Magnesium TIBC Transferrin ALT Alkaline Phosphatase Total Protein Albumin PTH Intact Crossmatch Chest x-ray: report reviewed, image reviewed
== END 2019-02-15 14:40 | DRG 377 ==
LOC: ED 06:34 → CC1 08:16 → IMCU 02-11 15:42 → 3A 02-14 17:41
PROVIDERS: ADMIT Internal Medicine; ATTEND Internal Medicine
PROC: 0DJ08ZZ Inspection of Upper Intestinal Tract, Via Natural or Artificial Opening Endoscopic (ICD-10-PCS; principal; 2019-02-09)
PROC: 30233N1 Transfusion of Nonautologous Red Blood Cells into Peripheral Vein, Percutaneous Approach (ICD-10-PCS; 2019-02-09)
PROC: 30233R1 Transfusion of Nonautologous Platelets into Peripheral Vein, Percutaneous Approach (ICD-10-PCS; 2019-02-10)
PROC: B4101ZZ Fluoroscopy of Abdominal Aorta using Low Osmolar Contrast (ICD-10-PCS; 2019-02-10)
PROC: 5A1D70Z Performance of Urinary Filtration, Intermittent, Less than 6 Hours Per Day (ICD-10-PCS; 2019-02-10)
PROC: 04L23DZ Occlusion of Gastric Artery with Intraluminal Device, Percutaneous Approach (ICD-10-PCS; 2019-02-10)
PROC: 04L23DZ Occlusion of Gastric Artery with Intraluminal Device, Percutaneous Approach (ICD-10-PCS; 2019-02-10)
PROC: B4151ZZ Fluoroscopy of Inferior Mesenteric Artery using Low Osmolar Contrast (ICD-10-PCS; 2019-02-10)
PROC: B4141ZZ Fluoroscopy of Superior Mesenteric Artery using Low Osmolar Contrast (ICD-10-PCS; 2019-02-10)
PROC: B41F1ZZ Fluoroscopy of Right Lower Extremity Arteries using Low Osmolar Contrast (ICD-10-PCS; 2019-02-10)
PROC: 5A1D70Z Performance of Urinary Filtration, Intermittent, Less than 6 Hours Per Day (ICD-10-PCS; 2019-02-12)
PROC: 0DB68ZX Excision of Stomach, Via Natural or Artificial Opening Endoscopic, Diagnostic (ICD-10-PCS; 2019-02-13)
PROC: 0DB78ZX Excision of Stomach, Pylorus, Via Natural or Artificial Opening Endoscopic, Diagnostic (ICD-10-PCS; 2019-02-13)
PROC: 5A1D70Z Performance of Urinary Filtration, Intermittent, Less than 6 Hours Per Day (ICD-10-PCS; 2019-02-14)
PROC: 0W9G3ZZ Drainage of Peritoneal Cavity, Percutaneous Approach (ICD-10-PCS; 2019-02-14)
DX: K25.4 Chronic or unspecified gastric ulcer with hemorrhage (principal); E43 Unspecified severe protein-calorie malnutrition; N18.6 End stage renal disease; R57.1 Hypovolemic shock; K29.70 Gastritis, unspecified, without bleeding; D62 Acute posthemorrhagic anemia; I95.9 Hypotension, unspecified; Z99.2 Dependence on renal dialysis; D69.6 Thrombocytopenia, unspecified; R18.8 Other ascites; F32.9 Major depressive disorder, single episode, unspecified; F20.9 Schizophrenia, unspecified; E78.5 Hyperlipidemia, unspecified; E55.9 Vitamin D deficiency, unspecified; G89.29 Other chronic pain; E03.9 Hypothyroidism, unspecified; I12.0 Hypertensive chronic kidney disease with stage 5 chronic kidney disease or end stage renal disease; E11.22 Type 2 diabetes mellitus with diabetic chronic kidney disease; B18.2 Chronic viral hepatitis C; I50.9 Heart failure, unspecified; I13.2 Hypertensive heart and chronic kidney disease with heart failure and with stage 5 chronic kidney disease, or end stage renal disease; K44.9 Diaphragmatic hernia without obstruction or gangrene; D63.1 Anemia in chronic kidney disease; N25.81 Secondary hyperparathyroidism of renal origin; R64 Cachexia; Z86.19 Personal history of other infectious and parasitic diseases; Z68.38 Body mass index [BMI] 38.0-38.9, adult; Z86.73 Personal history of transient ischemic attack (TIA), and cerebral infarction without residual deficits
CPT/HCPCS: 36415; 36430; 37242; 49083; 71045; 74174; 76700; 80048; 80053; 80074; 82271; 82533; 82607; 82747; 82962; 83550; 83735; 83970; 84100; 85014; 85018; 85025; 85027; 85045; 85384; 85610; 85730; 86850; 86900; 86901; 86920; 88305; 88342; 94760; 96365; 96375; G0378; A4649; A9270-GY; C1760; C1769; C1887; C9113; J0171; J0885; J1644; J1815; J1956; J2060; J2250; J2270; J2354; J2405; J2597; J2704; J3010; J3370; J3475; J7030; J7040; J7050; P9016; P9035; Q9967

== ENCOUNTER 2019-02-24 12:38 | Emergency (ER) | payer MEDICAID ==
--- NOTE | 2019-02-24 14:40 | Emergency Department Report ---
ED GI Bleed HPI - General Chief complaint: Abdominal Pain Stated complaint: ABD PAIN Time Seen by Provider: 02/24/19 12:57 Source: patient, EMS Mode of arrival: Stretcher Limitations: No Limitations - History of Present Illness Initial comments: Mrs. Bess is a 58-year-old female with history of severe GI bleed, esophageal varices, gastric ulcer, hepatitis C, ESRD on dialysis who presents with coffee ground emesis. She currently resides at [facility]. She has moderately severe diffuse pain in the abdomen. One episode of dark emesis. According to EMR, during recent admission earlier this month, she received numerous units of pRBCs's with severe anemia hgb 3. EGD reviewed 4 cm large gastric ulcer. She underwent embolization of gastric artery. Upon discharge hgb 11. complaint: coffee ground emesis -: Sudden, This afternoon Radiation: other (diffuse abdominal pain) Severity scale (0 -10): 5 Quality: dull Consistency: constant Improves with: none Worsens with: none Context: history of GI bleed, known esophageal varices Associated Symptoms: abdominal pain - Related Data Home Medications Medication Instructions Recorded Confirmed Last Taken Acetaminophen [Acetaminophen TAB] 650 mg PO Q12HR PRN 02/09/19 02/09/19 Unknown Atorvastatin [Lipitor] 80 mg PO QHS 02/09/19 02/09/19 Unknown Esomeprazole Magnesium [NexIUM] 40 mg PO Q12H 02/09/19 02/09/19 Unknown Fluticasone [Flonase] 1 spray NS QDAY 02/09/19 02/09/19 Unknown Lispro Insulin [HumaLOG] See Protocol SUB-Q ACHS 02/09/19 02/09/19 Unknown Polyethylene Glycol 3350 [Miralax 17 gm PO QDAY 02/09/19 02/09/19 Unknown 3350] Previous Rx's Medication Instructions Recorded Last Taken Type Pantoprazole [Protonix TAB] 40 mg PO BID #60 tablet 02/15/19 Unknown Rx Sucralfate [Carafate] 1 gm PO ACHS #30 oral.liqd 02/15/19 Unknown Rx Allergies Allergy/AdvReac Type Severity Reaction Status Date / Time guaifenesin [From Robitussin] Allergy Hives Verified 02/09/19 07:00 Penicillins Allergy Hives Verified 02/09/19 07:00 ED Review of Systems ROS: Stated complaint: ABD PAIN Other details as noted in HPI Comment: All other systems reviewed and negative Constitutional: denies: fever, malaise Gastrointestinal: abdominal pain, vomiting, hematochezia ED Past Medical Hx - Past Medical History Previous Medical History?: Yes Hx Hypertension: Yes (HX CHF) Hx Congestive Heart Failure: Yes Hx Diabetes: No Hx Liver Disease: Yes (HEP C) Hx Renal Disease: Yes Hx Seizures: No (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) Hx Psychiatric Treatment: Yes (major depressive disorder, schizophrenia) Hx Asthma: No Hx COPD: No Hx HIV: No Additional medical history: Cerebral infar, withh thrombosis of left cerebral artery, ESRDulcers of esophagus with bleeding, falls, hyperlipidemia, allergic rhinitis, constipation, anemia, vit D deficiency, hypothyroid, chronic pain, sinuitis, pruitis, didpl unsp condyle fx low end l femur 7th D, Hep C - Surgical History Additional Surgical History: left hip - Social History Smoking Status: Former Smoker Substance Use Type: None - Medications Home Medications: Home Medications Medication Instructions Recorded Confirmed Last Taken Type Acetaminophen [Acetaminophen TAB] 650 mg PO Q12HR PRN 02/09/19 02/09/19 Unknown History Atorvastatin [Lipitor] 80 mg PO QHS 02/09/19 02/09/19 Unknown History Esomeprazole Magnesium [NexIUM] 40 mg PO Q12H 02/09/19 02/09/19 Unknown History Fluticasone [Flonase] 1 spray NS QDAY 02/09/19 02/09/19 Unknown History Lispro Insulin [HumaLOG] See Protocol SUB-Q ACHS 02/09/19 02/09/19 Unknown History Polyethylene Glycol 3350 [Miralax 17 gm PO QDAY 02/09/19 02/09/19 Unknown History 3350] Pantoprazole [Protonix TAB] 40 mg PO BID #60 tablet 02/15/19 Unknown Rx Sucralfate [Carafate] 1 gm PO ACHS #30 oral.liqd 02/15/19 Unknown Rx ED Physical Exam - General Limitations: No Limitations General appearance: alert, in no apparent distress - Head Head exam: Present: atraumatic, normocephalic - Eye Eye exam: Present: scleral icterus. Absent: conjunctival injection - ENT ENT exam: Present: mucous membranes moist - Neck Neck exam: Present: normal inspection, full ROM - Respiratory Respiratory exam: Present: normal lung sounds bilaterally. Absent: respiratory distress, wheezes, rales, rhonchi - Cardiovascular Cardiovascular Exam: Present: regular rate, normal rhythm, normal heart sounds. Absent: systolic murmur, diastolic murmur, rubs, gallop - GI/Abdominal GI/Abdominal exam: Present: soft, distended, normal bowel sounds. Absent: tenderness - Back Exam Back exam: Present: normal inspection - Neurological Exam Neurological exam: Present: alert, oriented X3 - Psychiatric Psychiatric exam: Present: normal affect, normal mood - Skin Skin exam: Present: warm, dry, intact, normal color. Absent: rash ED Course Vital Signs 02/24/19 13:01 Temperature 97.5 F L Pulse Rate 93 H Respiratory 18 Rate Blood Pressure 159/94 O2 Sat by Pulse 98 Oximetry ED Medical Decision Making - Lab Data Result diagrams: 02/24/19 14:29 02/24/19 14:29 - Medical Decision Making Mrs. Bess presents with one episode of coffee-ground emesis. Hemoglobin upon recent discharge was 11 gm/dl. Hemoglobin today is 11 gm/dl. Normal vital signs. I do not suspect active GI bleed. She understands to call 911 if symptoms recur. She was observed in the ER for 3 hours without vomiting or hematemesis. She had mild nondescript abdominal pain. She currently is pain- free. I do not suspect peritonitis or acute intra-abdominal inflammatory process. She is discharged home. She stated that she was discharged from the [facility] facility today. She does have a residence. Our nursing staff will assist with transportation. Critical care attestation.: If time is entered above; I have spent that time in minutes in the direct care of this critically ill patient, excluding procedure time. ED Disposition Clinical Impression: ESRD (end stage renal disease) on dialysis, Abdominal pain, Vomiting, Gastric ulcer Disposition: -01 TO HOME OR SELFCARE Is pt being admited?: No Does the pt Need Aspirin: No Condition: Stable Instructions: Abdominal Pain (ED) Referrals: STACIE CARPIO MD [Primary Care Provider] - 3-5 Days
[2019-02-24 14:53] LABS: Basophils # (Auto) 0.1 K/mm3 (0.0-0.1); Hemoglobin 11.5 gm/dl (10.1-14.3); Lymphocytes # (Auto) 0.7 K/mm3 (1.2-5.4); Lymphocytes % (Auto) 10.3 % (13.4-35.0); Mean Corpuscular HGB Conc 35 % (30-34); Mean Corpuscular Volume 88 fl (79-97); Monocytes # (Auto) 0.1 K/mm3 (0.0-0.8); Monocytes % (Auto) 2.3 % (0.0-7.3); Platelet Count 129 K/mm3 (140-440); Red Blood Count 3.74 M/mm3 (3.65-5.03); Red Cell Distribution Width 15.1 % (13.2-15.2)
[2019-02-24 15:05] LABS: INR 1.17 (0.87-1.13)
[2019-02-24 15:06] LABS: Partial Thromboplastin Time 35.8 Sec. (24.2-36.6)
[2019-02-24 15:14] LABS: Albumin 2.6 g/dL (3.9-5); BUN/Creatinine Ratio 7; Blood Urea Nitrogen 19 mg/dL (7-17); Calcium 8.2 mg/dL (8.4-10.2); Hemolysis Index 46
[2019-02-24 15:15] LABS: Alanine Aminotransferase < 5 units/L (7-56)
[2019-02-24 16:42] VITALS: BP 139/86
== END 2019-02-24 16:44 | disposition home or self-care (01) ==
LOC: ED 12:38
DX: K25.9 Gastric ulcer, unspecified as acute or chronic, without hemorrhage or perforation (principal); I13.2 Hypertensive heart and chronic kidney disease with heart failure and with stage 5 chronic kidney disease, or end stage renal disease; N18.6 End stage renal disease; I50.9 Heart failure, unspecified; G89.29 Other chronic pain; F32.9 Major depressive disorder, single episode, unspecified; F20.9 Schizophrenia, unspecified; E78.5 Hyperlipidemia, unspecified; K59.00 Constipation, unspecified; E03.9 Hypothyroidism, unspecified; D64.9 Anemia, unspecified; Z98.890 Other specified postprocedural states; Z99.2 Dependence on renal dialysis; Z86.19 Personal history of other infectious and parasitic diseases; Z87.891 Personal history of nicotine dependence; Z88.8 Allergy status to other drugs, medicaments and biological substances; Z88.0 Allergy status to penicillin
CPT/HCPCS: 36415; 80053; 83690; 85025; 85610; 85730; 86850; 86900; 86901

== ENCOUNTER 2019-02-28 00:14 | Inpatient (IN) | payer MEDICAID ==
[2019-02-28] MEDS ORDERED: ASPIRIN PO ONE (00:35)
--- NOTE | 2019-02-28 01:15 | XRay Report ---
CHEST 1 VIEW 12:54 AM INDICATION / CLINICAL INFORMATION: Chest Pain. Abdominal pain with nausea and vomiting. COMPARISON: 02/09/2019. FINDINGS: SUPPORT DEVICES: The position of the right jugular CVL has not changed. HEART / MEDIASTINUM: The heart size is normal. The aorta is normal in caliber. LUNGS / PLEURA: Possible minimal interstitial edema on the right and trace right pleural effusion. No pneumothorax. ADDITIONAL FINDINGS: No significant additional findings. IMPRESSION: Possible minimal edema. Signer Name: Tomás Perez MD Signed: 02/28/2019 1:11 AM Workstation Name: [id number]
[2019-02-28 01:28] LABS: Basophils # (Auto) 0.1 K/mm3 (0.0-0.1); Basophils % (Auto) 0.9 % (0.0-1.8); Hematocrit 30.2 % (30.3-42.9); Lymphocytes % (Auto) 16.9 % (13.4-35.0); Mean Corpuscular HGB Conc 33 % (30-34); Mean Corpuscular Volume 88 fl (79-97); Monocytes # (Auto) 0.2 K/mm3 (0.0-0.8); Monocytes % (Auto) 3.8 % (0.0-7.3); Platelet Count 173 K/mm3 (140-440); Red Blood Count 3.42 M/mm3 (3.65-5.03); Red Cell Distribution Width 14.6 % (13.2-15.2)
[2019-02-28 01:55] LABS: INR 1.15 (0.87-1.13)
[2019-02-28 01:56] LABS: Partial Thromboplastin Time 39.4 Sec. (24.2-36.6)
[2019-02-28 01:58] LABS: Albumin 2.5 g/dL (3.9-5); BUN/Creatinine Ratio 10; Blood Urea Nitrogen 27 mg/dL (7-17); Calcium 8.4 mg/dL (8.4-10.2); Hemolysis Index 20
[2019-02-28 02:06] LABS: Alanine Aminotransferase < 5 units/L (7-56)
[2019-02-28 02:31] LABS: Chol/HDL Ratio 1.82 %; HDL Cholesterol 47 mg/dL (40-59); LDL Cholesterol,Direct 26 mg/dL (50-130)
--- NOTE | 2019-02-28 02:51 | Cat Scan Report ---
CT abdomen pelvis wo con INDICATION / CLINICAL INFORMATION: Generalized abdominal pain/ distention. TECHNIQUE: All CT scans at this location are performed using CT dose reduction for ALARA by means of automated e xposure control. COMPARISON: 02/09/2019. FINDINGS: ABDOMEN: There are moderate bilateral pleural effusions, larger on the right. There is bilateral lowe r lobe compressive atelectasis. There is marked generalized ascites. There are marked atherosclerotic calcifications. Generalized body wall edema is present. No other abnormality is seen. I do not ident nazario a focal liver lesion on this noncontrast study. No change is identified. PELVIS: There is marked pelvic ascites. I do not identify an adnexal mass. No change has occurred sin ce the prior study. IMPRESSION: 1. Marked ascites, bilateral pleural effusions and body wall edema have not changed significantly sin ce 02/09/2019. 2. No new abnormality is identified. Signer Name: Tomás Perez MD Signed: 02/28/2019 2:46 AM Workstation Name: [id number]
[2019-02-28] MEDS ORDERED: ZOFRAN IV PRN (04:19)
[2019-02-28] MEDS ORDERED: TYLENOL PO PRN (04:19)
--- NOTE | 2019-02-28 04:24 | History and Physical Report ---
History of Present Illness Date of examination: 02/28/19 Date of admission: 02/28/2019 Chief complaint: Bright red blood in emesis History of present illness: Pt is a 55 year old female with PMHx of ESRD on HD, CHF, hep C, CVA, hypothyroidism, DM type 2 who was brought to the ER by EMS for c/o bright red blood in her emesis. Pt also c/o diffuse abdominal pain, she states that the pain is associated with abdominal nausea and vomiting, she received HD on Tuesday. Pt also c/o left substernal chest pain, denies radiation of the pain, denies palpitation, denies diaphoresis. Pt is not a good historian, most of the history was obtained for pt's chart, according to MR, she was admitted here on 02/09 and 02/24 for c/o abdominal pain and vomiting blood. Past History Past Medical History: diabetes, ESRD, heart failure, hepatitis, hypothyroidism, stroke Past Surgical History: (x3), total hip replacement Social history: no significant social history Family history: no significant family history Medications and Allergies Allergies Allergy/AdvReac Type Severity Reaction Status Date / Time guaifenesin [From Robitussin] Allergy Hives Verified 02/09/19 07:00 Penicillins Allergy Hives Verified 02/09/19 07:00 Home Medications Medication Instructions Recorded Confirmed Last Taken Type Acetaminophen [Acetaminophen TAB] 650 mg PO Q12HR PRN 02/09/19 02/28/19 Unknown History Polyethylene Glycol 3350 [Miralax 17 gm PO QDAY 02/09/19 02/28/19 Unknown History 3350] Albuterol Sulfate [Proair 2 puff IH Q6HR PRN 02/28/19 02/28/19 Unknown History Respiclick] Amlodipine Besylate [Norvasc] 10 mg PO DAILY 02/28/19 02/28/19 Unknown History Antifungal 1% CREAM 1 pack TP DAILY 02/28/19 02/28/19 Unknown History Calcium Acetate [Phoslo] 667 mg PO TID 02/28/19 02/28/19 Unknown History Ferrous Sulfate [Feosol] 325 mg PO BID 02/28/19 02/28/19 Unknown History Folic Acid [Folvite] 1 mg PO QDAY 02/28/19 02/28/19 Unknown History Glucagon (Human Recomb) [Glucagen] 1 mg IM Q15MIN PRN 02/28/19 02/28/19 Unknown History Insulin Lispro [Humalog Kwikpen 100 unit SQ PRN PRN 02/28/19 02/28/19 Unknown History U-100] Levothyroxine [Synthroid] 150 mcg PO QAM 02/28/19 02/28/19 Unknown History PARoxetine HCl [PARoxetine] 20 mg PO HS 02/28/19 02/28/19 Unknown History Sennosides Tab [Senokot] 1 tab PO HS PRN 02/28/19 02/28/19 Unknown History Thiamine [Vitamin B-1] 100 mg PO QDAY 02/28/19 02/28/19 Unknown History risperiDONE [Risperdal] 2 mg PO DAILY 02/28/19 02/28/19 Unknown History Active Meds: Active Medications Acetaminophen (Tylenol) 650 mg PO Q4H PRN PRN Reason: Pain MILD(1-3)/Fever >100.5/[place] Acetaminophen/Hydrocodone Bitart ([place] 5/325) 2 each PO Q6H PRN PRN Reason: Pain, Moderate (4-6) Ondansetron HCl (Zofran) 4 mg IV Q8H PRN PRN Reason: Nausea And Vomiting Senna (Senokot) 8.6 mg PO Q12HR ROSELINE Sodium Chloride (Sodium Chloride Flush Syringe 10 Ml) 10 ml IV BID ROSELINE Sodium Chloride (Sodium Chloride Flush Syringe 10 Ml) 10 ml IV BID ROSELINE Review of Systems Gastrointestinal: abdominal pain Exam - Constitutional Vitals: Temp Pulse Resp BP Pulse Ox 98.1 F 105 H 12 150/85 95 02/28/19 00:29 02/28/19 00:29 02/28/19 00:29 02/28/19 00:29 02/28/19 00:29 General appearance: Present: no acute distress - EENT Eyes: Present: PERRL ENT: hearing intact - Neck Neck: Present: supple - Respiratory Respiratory effort: normal Respiratory: bilateral: CTA - Cardiovascular Rhythm: regular Heart Sounds: Present: S1 & S2 - Extremities Extremities: no ischemia Extremity abnormal: edema (2+) Peripheral Pulses: within normal limits - Abdominal General gastrointestinal: Present: deferred, normal bowel sounds Female genitourinary: Present: deferred - Rectal Rectal Exam: deferred - Integumentary Integumentary: Present: warm, dry, erythema - Musculoskeletal Musculoskeletal: strength equal bilaterally - Psychiatric Psychiatric: appropriate mood/affect, cooperative - Neurologic Neurologic: CNII-XII intact Results - Labs CBC & Chem 7: 02/28/19 06:07 02/28/19 00:45 Labs: Laboratory Last Values WBC 5.9 K/mm3 (4.5-11.0) 02/28/19 00:45 RBC 3.42 M/mm3 (3.65-5.03) L 02/28/19 00:45 Hgb 10.0 gm/dl (10.1-14.3) L 02/28/19 00:45 Hct 30.2 % (30.3-42.9) L 02/28/19 00:45 MCV 88 fl (79-97) 02/28/19 00:45 MCH 29 pg (28-32) 02/28/19 00:45 MCHC 33 % (30-34) 02/28/19 00:45 RDW 14.6 % (13.2-15.2) 02/28/19 00:45 Plt Count 173 K/mm3 (140-440) 02/28/19 00:45 Lymph % (Auto) 16.9 % (13.4-35.0) 02/28/19 00:45 Turner % (Auto) 3.8 % (0.0-7.3) 02/28/19 00:45 Eos % (Auto) 0.0 % (0.0-4.3) 02/28/19 00:45 Baso % (Auto) 0.9 % (0.0-1.8) 02/28/19 00:45 Lymph # 1.0 K/mm3 (1.2-5.4) L 02/28/19 00:45 Turner # 0.2 K/mm3 (0.0-0.8) 02/28/19 00:45 Eos # 0.0 K/mm3 (0.0-0.4) 02/28/19 00:45 Baso # 0.1 K/mm3 (0.0-0.1) 02/28/19 00:45 Seg Neutrophils % 78.4 % (40.0-70.0) H 02/28/19 00:45 Seg Neutrophils # 4.6 K/mm3 (1.8-7.7) 02/28/19 00:45 PT 14.4 Sec. (12.2-14.9) 02/28/19 00:55 INR 1.15 (0.87-1.13) H 02/28/19 00:55 APTT 39.4 Sec. (24.2-36.6) H 02/28/19 00:55 Sodium 134 mmol/L (137-145) L 02/28/19 00:45 Potassium 3.7 mmol/L (3.6-5.0) 02/28/19 00:45 Chloride 97.1 mmol/L (98-107) L 02/28/19 00:45 Carbon Dioxide 29 mmol/L (22-30) 02/28/19 00:45 12 mmol/L 02/28/19 00:45 BUN 27 mg/dL (7-17) H 02/28/19 00:45 2.8 mg/dL (0.7-1.2) H 02/28/19 00:45 Estimated GFR 21 ml/min 02/28/19 00:45 10 % 02/28/19 00:45 Glucose 117 mg/dL (65-100) H 02/28/19 00:45 Calcium 8.4 mg/dL (8.4-10.2) 02/28/19 00:45 0.40 mg/dL (0.1-1.2) 02/28/19 00:45 AST 13 units/L (5-40) 02/28/19 00:45 ALT < 5 units/L (7-56) L 02/28/19 00:45 47 units/L (35-129) 02/28/19 00:45 0.162 ng/mL (0.00-0.029) H* 02/28/19 00:45 6.0 g/dL (6.3-8.2) L 02/28/19 00:45 2.5 g/dL (3.9-5) L 02/28/19 00:45 0.7 % 02/28/19 00:45 Triglycerides 94 mg/dL (2-149) 02/28/19 00:45 Cholesterol 86 mg/dL (50-199) 02/28/19 00:45 26 mg/dL (50-130) L 02/28/19 00:45 47 mg/dL (40-59) 02/28/19 00:45 1.82 % 02/28/19 00:45 11 units/L (13-60) L 02/28/19 00:45 Assessment and Plan Assessment and plan: 1. Abdominal distention 2. Abdominal pain (due to above) 3. Hematemesis (likely due to liver disease, hep C) 4. H/o Esophageal bleeding 5. CHF (EF unknown) 6. ESRD on HD 7. Hep C 8. H/o CVA 9. h/o hyperlipidemia 10. Anemia (Multifactorial, CKD) Plan: Admit to [facility]tele Consult GI for bleeding Consult cardiology Consult nephrology BNP level Continue H&H q6hr x 2 Monitor vital signs Accu check ACHS with insulin per sliding scale Continue home meds Pt may need paracenthesis if no improvement of abdominal distention after HD Plan of care d/w pt, voiced understandin Pt's condition and plan of care d/w dr Olmstead Advance Directives: Yes Contraindication Mechanical VTE Prophylaxis: Contraindicated (bleeding) Plan of care discussed with patient/family: Yes
--- NOTE | 2019-02-28 04:30 | Emergency Department Report ---
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 Patient also c/o periumbilical abdominal pain which is chronic. She rates her chest pain as moderated in severity and intermittent. Chest pain is located mid chest without radiation. Patient has esrd, h/o gi bleed with last admission for similar symptoms on 02/09/19, since her last admission, she had an ER visit on 02/24, during which she was stabilized and d/c back to [facility]. Today, she feels horrible, stating her chest and abdominal pains are severe and hindering her ability to eat and drink. She states compliance with dialysis schedule. Severity scale (0 -10): 8 - Related Data Home Medications Medication Instructions Recorded Confirmed Last Taken Acetaminophen [Acetaminophen TAB] 650 mg PO Q12HR PRN 02/09/19 02/28/19 Unknown Polyethylene Glycol 3350 [Miralax 17 gm PO QDAY 02/09/19 02/28/19 Unknown 3350] Albuterol Sulfate [Proair 2 puff IH Q6HR PRN 02/28/19 02/28/19 Unknown Respiclick] Amlodipine Besylate [Norvasc] 10 mg PO DAILY 02/28/19 02/28/19 Unknown Antifungal 1% CREAM 1 pack TP DAILY 02/28/19 02/28/19 Unknown Calcium Acetate [Phoslo] 667 mg PO TID 02/28/19 02/28/19 Unknown Ferrous Sulfate [Feosol] 325 mg PO BID 02/28/19 02/28/19 Unknown Folic Acid [Folvite] 1 mg PO QDAY 02/28/19 02/28/19 Unknown Glucagon (Human Recomb) [Glucagen] 1 mg IM Q15MIN PRN 02/28/19 02/28/19 Unknown Insulin Lispro [Humalog Kwikpen 100 unit SQ PRN PRN 02/28/19 02/28/19 Unknown U-100] Levothyroxine [Synthroid] 150 mcg PO QAM 02/28/19 02/28/19 Unknown PARoxetine HCl [PARoxetine] 20 mg PO HS 02/28/19 02/28/19 Unknown Sennosides Tab [Senokot] 1 tab PO HS PRN 02/28/19 02/28/19 Unknown Thiamine [Vitamin B-1] 100 mg PO QDAY 02/28/19 02/28/19 Unknown risperiDONE [Risperdal] 2 mg PO DAILY 02/28/19 02/28/19 Unknown Allergies Allergy/AdvReac Type Severity Reaction Status Date / Time guaifenesin [From Robitussin] Allergy Hives Verified 02/09/19 07:00 Penicillins Allergy Hives Verified 02/09/19 07:00 Heart Score - HEART Score History: Moderately suspicious EKG: Non-specific Age: 45-65 Risk factors: > 3 risk factors or hx of atherosclerotic disease Troponin: 1-3x normal limit HEART Score: 6 - Critical Actions Critical Actions: 4-6 pts:12-16.6% risk of adverse cardiac event. 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) Hx Psychiatric Treatment: Yes (major depressive disorder, schizophrenia) Hx Asthma: No Hx COPD: No Hx HIV: No Additional medical history: Cerebral infar, withh thrombosis of left cerebral artery, ESRDulcers of esophagus with bleeding, falls, hyperlipidemia, allergic rhinitis, constipation, anemia, vit D deficiency, hypothyroid, chronic pain, sinuitis, pruitis, didpl unsp condyle fx low end l femur 7th D, Hep C - Surgical History Past Surgical History?: Yes Additional Surgical History: left hip, left leg sx, x3, both feet sx - Social History Smoking Status: Former Smoker Substance Use Type: None - Medications Home Medications: Home Medications Medication Instructions Recorded Confirmed Last Taken Type Acetaminophen [Acetaminophen TAB] 650 mg PO Q12HR PRN 02/09/19 02/28/19 Unknown History Polyethylene Glycol 3350 [Miralax 17 gm PO QDAY 02/09/19 02/28/19 Unknown History 3350] Albuterol Sulfate [Proair 2 puff IH Q6HR PRN 02/28/19 02/28/19 Unknown History Respiclick] Amlodipine Besylate [Norvasc] 10 mg PO DAILY 02/28/19 02/28/19 Unknown History Antifungal 1% CREAM 1 pack TP DAILY 02/28/19 02/28/19 Unknown History Calcium Acetate [Phoslo] 667 mg PO TID 02/28/19 02/28/19 Unknown History Ferrous Sulfate [Feosol] 325 mg PO BID 02/28/19 02/28/19 Unknown History Folic Acid [Folvite] 1 mg PO QDAY 02/28/19 02/28/19 Unknown History Glucagon (Human Recomb) [Glucagen] 1 mg IM Q15MIN PRN 02/28/19 02/28/19 Unknown History Insulin Lispro [Humalog Kwikpen 100 unit SQ PRN PRN 02/28/19 02/28/19 Unknown History U-100] Levothyroxine [Synthroid] 150 mcg PO QAM 02/28/19 02/28/19 Unknown History PARoxetine HCl [PARoxetine] 20 mg PO HS 02/28/19 02/28/19 Unknown History Sennosides Tab [Senokot] 1 tab PO HS PRN 02/28/19 02/28/19 Unknown History Thiamine [Vitamin B-1] 100 mg PO QDAY 02/28/19 02/28/19 Unknown History risperiDONE [Risperdal] 2 mg PO DAILY 02/28/19 02/28/19 Unknown History ED Physical Exam - General Limitations: Physical Limitation General appearance: alert, in no apparent distress - Head Head exam: Present: atraumatic, normocephalic - Eye Eye exam: Present: normal appearance - ENT ENT exam: Present: normal exam - Neck Neck exam: Present: normal inspection - Respiratory Respiratory exam: Present: decreased breath sounds - Cardiovascular Cardiovascular Exam: Present: systolic murmur - GI/Abdominal GI/Abdominal exam: Present: soft, normal bowel sounds ED Course Vital Signs 02/28/19 02/28/19 02/28/19 00:27 00:29 02:01 Temperature 98.1 F Pulse Rate 105 H 105 H 100 H Respiratory 11 L 12 Rate Blood Pressure 150/85 150/85 139/103 Blood Pressure 150/85 [Right] O2 Sat by Pulse 95 95 99 Oximetry 02/28/19 02/28/19 04:01 05:01 Temperature Pulse Rate 101 H 99 H Respiratory 12 10 L Rate Blood Pressure 123/64 123/76 Blood Pressure [Right] O2 Sat by Pulse 99 98 Oximetry ED Medical Decision Making - Lab Data Result diagrams: 02/28/19 00:45 02/28/19 00:45 - EKG Data -: EKG Interpreted by Me EKG shows normal: sinus rhythm Rate: tachycardia - EKG Data Interpretation: nonspecific ST-T wave grace - Radiology Data Radiology results: report reviewed - Differential Diagnosis acs, chf exacerbation Critical care attestation.: If time is entered above; I have spent that time in minutes in the direct care of this critically ill patient, excluding procedure time. ED Disposition Clinical Impression: Chest pain Qualifiers: Chest pain type: other chest pain Qualified Code(s): R07.89 - Other chest pain; R07.8 - Other chest pain Disposition: OP ADMIT IP TO THIS HOSP Is pt being admited?: Yes Does the pt Need Aspirin: Yes Condition: Stable
[2019-02-28] MEDS ORDERED: NORCO 5/325 ONE ×2 (06:14)
[2019-02-28] MEDS: NORCO 5/325 PO PRN (06:15)
[2019-02-28 06:20] LABS: Hematocrit 28.6 % (30.3-42.9); Hemoglobin 9.4 gm/dl (10.1-14.3)
[2019-02-28 06:48] LABS: Creatine Kinase MB 3.5 ng/mL (0.0-4.0)
[2019-02-28] MEDS ORDERED: NACL 0.9% 100 ML IV PRN (09:00)
--- NOTE | 2019-02-28 09:57 | Gastroenterology Consultation ---
<AR KEARNEY - Last Filed: 02/28/19 10:49> History of Present Illness - Reason for Consult Consult date: 02/28/19 GIB Requesting physician: GAL ORTEGA - History of Present Illness Patient is a 55 y/o female with PMH of ESRD on HD, CHF, CVA, hypothyroidism, DM, anemia, schizophrenia, and ascites (2/2 most likely poor nutrition/ESRD; no evidence of liver disease on CT after review with IR last admission and HCV Ab negative) requiring previous paracentesis (02/14/19; 8300ml removed) who presented to ED with c/o CP, diffuse abd pain, and vomiting blood to which GI has been consulted. Patient is well known to our service and has had multiple hospitalizations here at [facility] and at [place] since January of this year with recurrent UGI bleeding. She has undergone multiple EGDs with last EGD 02/13/19 showing large 4cm ulcer on lesser curve (bx negative; negative colonoscopy at [place] per pt report 01/2019), and is s/p empiric embolization of Left gastric artery by IR 02/10/19. This morning patient was resting in bed w/o acute distress but noted to be somnolent. States she is feeling better with CP now improved. Reports multiple episodes of vomiting up dark colored emesis mixed with bright red blood that began yesterday, along with generalized abd pain/discomfort that is unchanged from previous chronic abd pain. Last BM was 2 days ago (pt unsure if there was blood in stool). According to medications list is on daily iron, but no PPI listed. Repeat CT this admission, showed ascites but no new abnormality. Past History Past Medical History: other (as per HPI) Past Surgical History: (x3), total hip replacement Social history: other ([facility] resident) Family history: no significant family history Medications and Allergies Allergies Allergy/AdvReac Type Severity Reaction Status Date / Time guaifenesin [From Robitussin] Allergy Hives Verified 02/09/19 07:00 Penicillins Allergy Hives Verified 02/09/19 07:00 Home Medications Medication Instructions Recorded Confirmed Last Taken Type Acetaminophen [Acetaminophen TAB] 650 mg PO Q12HR PRN 02/09/19 02/28/19 Unknown History Polyethylene Glycol 3350 [Miralax 17 gm PO QDAY 02/09/19 02/28/19 Unknown History 3350] Albuterol Sulfate [Proair 2 puff IH Q6HR PRN 02/28/19 02/28/19 Unknown History Respiclick] Amlodipine Besylate [Norvasc] 10 mg PO DAILY 02/28/19 02/28/19 Unknown History Antifungal 1% CREAM 1 pack TP DAILY 02/28/19 02/28/19 Unknown History Calcium Acetate [Phoslo] 667 mg PO TID 02/28/19 02/28/19 Unknown History Ferrous Sulfate [Feosol] 325 mg PO BID 02/28/19 02/28/19 Unknown History Folic Acid [Folvite] 1 mg PO QDAY 02/28/19 02/28/19 Unknown History Glucagon (Human Recomb) [Glucagen] 1 mg IM Q15MIN PRN 02/28/19 02/28/19 Unknown History Insulin Lispro [Humalog Kwikpen 100 unit SQ PRN PRN 02/28/19 02/28/19 Unknown History U-100] Levothyroxine [Synthroid] 150 mcg PO QAM 02/28/19 02/28/19 Unknown History PARoxetine HCl [PARoxetine] 20 mg PO HS 02/28/19 02/28/19 Unknown History Sennosides Tab [Senokot] 1 tab PO HS PRN 02/28/19 02/28/19 Unknown History Thiamine [Vitamin B-1] 100 mg PO QDAY 02/28/19 02/28/19 Unknown History risperiDONE [Risperdal] 2 mg PO DAILY 02/28/19 02/28/19 Unknown History Active Meds: Active Medications Acetaminophen (Tylenol) 650 mg PO Q4H PRN PRN Reason: Pain MILD(1-3)/Fever >100.5/[place] Acetaminophen/Hydrocodone Bitart ([place] 5/325) 2 each PO Q6H PRN PRN Reason: Pain, Moderate (4-6) Last Admin: 02/28/19 06:15 Dose: 2 each Documented by: Sodium Chloride (Nacl 0.9%) 100 mls @ 999 mls/hr IV MARCELA PRN PRN Reason: Hypotension Ondansetron HCl (Zofran) 4 mg IV Q8H PRN PRN Reason: Nausea And Vomiting Senna (Senokot) 8.6 mg PO Q12HR ROSELINE Sodium Chloride (Sodium Chloride Flush Syringe 10 Ml) 10 ml IV BID ROSELINE medications reviewed/updated as required Review of Systems - Review of Systems All systems: negative Gastrointestinal: abdominal pain (diffuse), vomiting, hematemesis Exam - Constitutional Vital Signs: Temp Pulse Resp BP Pulse Ox 97.8 F 99 H 20 138/78 99 02/28/19 06:37 02/28/19 06:42 02/28/19 06:37 02/28/19 06:37 02/28/19 06:37 General appearance: no acute distress, other (somnolent) - Respiratory Respiratory effort: normal - Cardiovascular Rhythm: regular - Gastrointestinal General gastrointestinal: Present: soft, tender (slight TTP), distended (ascites), normal bowel sounds - Labs CBC & Chem 7: 02/28/19 06:07 02/28/19 00:45 Lab Results: Laboratory Results - last 24 hr 02/28/19 02/28/19 02/28/19 00:45 00:45 00:45 WBC 5.9 RBC 3.42 L Hgb 10.0 L Hct 30.2 L MCV 88 MCH 29 MCHC 33 RDW 14.6 Plt Count 173 Lymph % (Auto) 16.9 [place] % (Auto) 3.8 Eos % (Auto) 0.0 Baso % (Auto) 0.9 Lymph # 1.0 L [place] # 0.2 Eos # 0.0 Baso # 0.1 Seg Neutrophils % 78.4 H Seg Neutrophils # 4.6 PT INR APTT Sodium 134 L Potassium 3.7 Chloride 97.1 L Carbon Dioxide 29 Anion Gap 12 BUN 27 H Creatinine 2.8 H Estimated GFR 21 BUN/Creatinine Ratio 10 Glucose 117 H Calcium 8.4 Total Bilirubin 0.40 AST 13 ALT < 5 L Alkaline Phosphatase 47 Total Creatine Kinase CK-MB (CK-2) CK-MB (CK-2) Rel Index Troponin T 0.162 H* Total Protein 6.0 L Albumin 2.5 L Albumin/Globulin Ratio 0.7 Triglycerides 94 Cholesterol 86 LDL Cholesterol Direct 26 L HDL Cholesterol 47 Cholesterol/HDL Ratio 1.82 Lipase 11 L 02/28/19 02/28/19 02/28/19 00:55 03:28 06:07 WBC RBC Hgb Hct MCV MCH MCHC RDW Plt Count Lymph % (Auto) [place] % (Auto) Eos % (Auto) Baso % (Auto) Lymph # [place] # Eos # Baso # Seg Neutrophils % Seg Neutrophils # PT 14.4 INR 1.15 H APTT 39.4 H Sodium Potassium Chloride Carbon Dioxide Anion Gap BUN Creatinine Estimated GFR BUN/Creatinine Ratio Glucose Calcium Total Bilirubin AST ALT Alkaline Phosphatase Total Creatine Kinase 46 CK-MB (CK-2) 3.5 CK-MB (CK-2) Rel Index 7.6 H Troponin T 0.162 H* 0.188 H* Total Protein Albumin Albumin/Globulin Ratio Triglycerides Cholesterol LDL Cholesterol Direct HDL Cholesterol Cholesterol/HDL Ratio Lipase 02/28/19 06:07 WBC RBC Hgb 9.4 L Hct 28.6 L MCV MCH MCHC RDW Plt Count Lymph % (Auto) [place] % (Auto) Eos % (Auto) Baso % (Auto) Lymph # [place] # Eos # Baso # Seg Neutrophils % Seg Neutrophils # PT INR APTT Sodium Potassium Chloride Carbon Dioxide Anion Gap BUN Creatinine Estimated GFR BUN/Creatinine Ratio Glucose Calcium Total Bilirubin AST ALT Alkaline Phosphatase Total Creatine Kinase CK-MB (CK-2) CK-MB (CK-2) Rel Index Troponin T Total Protein Albumin Albumin/Globulin Ratio Triglycerides Cholesterol LDL Cholesterol Direct HDL Cholesterol Cholesterol/HDL Ratio Lipase Assessment and Plan 1.recurrent UGI bleeding -H/H 9.4/28.6 -continue to monitor H/H and transfuse as needed -hold blood thinning medications -pt reports multiple episodes of vomiting up dark emesis mixed with bright red blood since yesterday -s/p empiric embolization of L gastric artery 02/10 -last EGD 02/13/19 revealed large ulcer (4cm) on lesser curve; no visible vessel, mild gastritis, and small hiatal hernia -bx result negative for H pylori or malignancy -will schedule for repeat EGD today (spoke with cardiology with clearance given to proceed with procedure) -Keep NPO -start on PPI -continue supportive care -further recommendations to follow EGD results 2.ascites -likely related to underlying poor nutrition and ESRD; OK to continue aggressive HD, and remove fluid -no evidence of cirrhosis per prior evaluation and HCV negative -LVP PRN- s/p paracentesis 02/14/19 3.ESRD on HD <AIXA PAIZ - Last Filed: 02/28/19 11:16> Medications and Allergies Active Meds: Active Medications Acetaminophen (Tylenol) 650 mg PO Q4H PRN PRN Reason: Pain MILD(1-3)/Fever >100.5/[place] Acetaminophen/Hydrocodone Bitart ([place] 5/325) 2 each PO Q6H PRN PRN Reason: Pain, Moderate (4-6) Last Admin: 02/28/19 06:15 Dose: 2 each Documented by: Sodium Chloride (Nacl 0.9%) 100 mls @ 999 mls/hr IV MARCELA PRN PRN Reason: Hypotension Ondansetron HCl (Zofran) 4 mg IV Q8H PRN PRN Reason: Nausea And Vomiting Senna (Senokot) 8.6 mg PO Q12HR ROSELINE Sodium Chloride (Sodium Chloride Flush Syringe 10 Ml) 10 ml IV BID ROSELINE Exam - Constitutional Vital Signs: Temp Pulse Resp BP Pulse Ox 97.8 F 99 H 20 138/78 99 02/28/19 06:37 02/28/19 06:42 02/28/19 06:37 02/28/19 06:37 02/28/19 06:37 - Labs CBC & Chem 7: 02/28/19 06:07 02/28/19 00:45 Lab Results: Laboratory Results - last 24 hr 02/28/19 02/28/19 02/28/19 00:45 00:45 00:45 WBC 5.9 RBC 3.42 L Hgb 10.0 L Hct 30.2 L MCV 88 MCH 29 MCHC 33 RDW 14.6 Plt Count 173 Lymph % (Auto) 16.9 [place] % (Auto) 3.8 Eos % (Auto) 0.0 Baso % (Auto) 0.9 Lymph # 1.0 L [place] # 0.2 Eos # 0.0 Baso # 0.1 Seg Neutrophils % 78.4 H Seg Neutrophils # 4.6 PT INR APTT Sodium 134 L Potassium 3.7 Chloride 97.1 L Carbon Dioxide 29 Anion Gap 12 BUN 27 H Creatinine 2.8 H Estimated GFR 21 BUN/Creatinine Ratio 10 Glucose 117 H Calcium 8.4 Total Bilirubin 0.40 AST 13 ALT < 5 L Alkaline Phosphatase 47 Total Creatine Kinase CK-MB (CK-2) CK-MB (CK-2) Rel Index Troponin T 0.162 H* Total Protein 6.0 L Albumin 2.5 L Albumin/Globulin Ratio 0.7 Triglycerides 94 Cholesterol 86 LDL Cholesterol Direct 26 L HDL Cholesterol 47 Cholesterol/HDL Ratio 1.82 Lipase 11 L 08/21/19 08/21/19 08/21/19 00:55 03:28 06:07 WBC RBC Hgb Hct MCV MCH MCHC RDW Plt Count Lymph % (Auto) [place] % (Auto) Eos % (Auto) Baso % (Auto) Lymph # [place] # Eos # Baso # Seg Neutrophils % Seg Neutrophils # PT 14.4 INR 1.15 H APTT 39.4 H Sodium Potassium Chloride Carbon Dioxide Anion Gap BUN Creatinine Estimated GFR BUN/Creatinine Ratio Glucose Calcium Total Bilirubin AST ALT Alkaline Phosphatase Total Creatine Kinase 46 CK-MB (CK-2) 3.5 CK-MB (CK-2) Rel Index 7.6 H Troponin T 0.162 H* 0.188 H* Total Protein Albumin Albumin/Globulin Ratio Triglycerides Cholesterol LDL Cholesterol Direct HDL Cholesterol Cholesterol/HDL Ratio Lipase 02/28/19 06:07 WBC RBC Hgb 9.4 L Hct 28.6 L MCV MCH MCHC RDW Plt Count Lymph % (Auto) [place] % (Auto) Eos % (Auto) Baso % (Auto) Lymph # [place] # Eos # Baso # Seg Neutrophils % Seg Neutrophils # PT INR APTT Sodium Potassium Chloride Carbon Dioxide Anion Gap BUN Creatinine Estimated GFR BUN/Creatinine Ratio Glucose Calcium Total Bilirubin AST ALT Alkaline Phosphatase Total Creatine Kinase CK-MB (CK-2) CK-MB (CK-2) Rel Index Troponin T Total Protein Albumin Albumin/Globulin Ratio Triglycerides Cholesterol LDL Cholesterol Direct HDL Cholesterol Cholesterol/HDL Ratio Lipase Assessment and Plan Patient seen and examined. Agree with note above. H/o PUD with recent embolization presenting with recurrent UGI bleeding. plan for EGD today.
[2019-02-28] MEDS ORDERED: SODIUM CHLORIDE FLUSH SYRINGE 10 ML IV SCH (10:00)
--- NOTE | 2019-02-28 10:43 | Progress Note ---
Assessment and Plan Assessment and plan: Hematemesis. Patient reportedly has had recurrent upper GI bleeding seen here at our facility and [place] with negative EGD 2 for varices or obvious ulcer. CT scan reviewed by Dr Acuna; ascites likely related to anasarca/renal disease; no convincing varices or nodular liver and spleen WNL. However, Patient is S/p empiric embolization of L gastric artery 02/10 and EGD on 02/13 that revealed Large ulcer (4cm) on lesser curve; no visible vessel that was likely source of bleeding, Biopsy taken of the margins but does not appear malignant. Mild gastric, biopsy of the antrum and Small hiatal hernia. We will continue PPI twice a day and Carafate Anemia. Follow H&H and transfuse for hemoglobin less than 7. Etiology is multifactorial. Likely from blood loss and chronic disease. Chest pain. I discussed the case with cardiology who reports echocardiogram completed this morning appears to be within normal limits. Follow up final results. Elevated troponin. Ischemic evaluation per cardiology. Cardiology has been consulted Ascites. Likely related to underlying poor nutrition and ESRD. Continue hemodialysis ESRD. Nephrology consultation pending. Diabetes mellitus type 2. Continue Accu-Cheks and sliding scale insulin Hypothyroidism. Check TSH. Continue Synthroid. History Interval history: Patient is a 55 y/o female with PMH of ESRD on HD, CHF, CVA, hypothyroidism, DM, anemia, schizophrenia, and ascites 2/2 most likely poor nutrition/ESRD (no evidence of liver disease on CT after review with IR last admission; HCV Ab negative) requiring previous paracentesis (02/14/19; 8300ml removed) who presented to ED with c/o CP, diffuse abd pain, and vomiting blood Hospitalist Physical - Constitutional Vitals: Temp Pulse Resp BP Pulse Ox 97.8 F 99 H 20 138/78 99 02/28/19 06:37 02/28/19 06:42 02/28/19 06:37 02/28/19 06:37 02/28/19 06:37 General appearance: Present: no acute distress - EENT Eyes: Present: PERRL, EOM intact ENT: hearing intact, clear oral mucosa, dentition normal - Neck Neck: Present: supple, normal ROM - Respiratory Respiratory effort: normal Respiratory: bilateral: CTA - Cardiovascular Rhythm: regular Heart Sounds: Present: S1 & S2. Absent: gallop, rub - Extremities Extremities: no ischemia, No edema, Full ROM - Abdominal General gastrointestinal: soft, non-tender, non-distended, normal bowel sounds - Integumentary Integumentary: Present: clear, warm, dry - Neurologic Neurologic: CNII-XII intact, moves all extremities Results - Labs CBC & Chem 7: 02/28/19 06:07 02/28/19 00:45 Labs: Laboratory Last Values WBC 5.9 K/mm3 (4.5-11.0) 02/28/19 00:45 RBC 3.42 M/mm3 (3.65-5.03) L 02/28/19 00:45 Hgb 9.4 gm/dl (10.1-14.3) L 02/28/19 06:07 Hct 28.6 % (30.3-42.9) L 02/28/19 06:07 MCV 88 fl (79-97) 02/28/19 00:45 MCH 29 pg (28-32) 02/28/19 00:45 MCHC 33 % (30-34) 02/28/19 00:45 RDW 14.6 % (13.2-15.2) 02/28/19 00:45 Plt Count 173 K/mm3 (140-440) 02/28/19 00:45 Lymph % (Auto) 16.9 % (13.4-35.0) 02/28/19 00:45 [place] % (Auto) 3.8 % (0.0-7.3) 02/28/19 00:45 Eos % (Auto) 0.0 % (0.0-4.3) 02/28/19 00:45 Baso % (Auto) 0.9 % (0.0-1.8) 02/28/19 00:45 Lymph # 1.0 K/mm3 (1.2-5.4) L 02/28/19 00:45 [place] # 0.2 K/mm3 (0.0-0.8) 02/28/19 00:45 Eos # 0.0 K/mm3 (0.0-0.4) 02/28/19 00:45 Baso # 0.1 K/mm3 (0.0-0.1) 02/28/19 00:45 Seg Neutrophils % 78.4 % (40.0-70.0) H 02/28/19 00:45 Seg Neutrophils # 4.6 K/mm3 (1.8-7.7) 02/28/19 00:45 PT 14.4 Sec. (12.2-14.9) 02/28/19 00:55 INR 1.15 (0.87-1.13) H 02/28/19 00:55 APTT 39.4 Sec. (24.2-36.6) H 02/28/19 00:55 Sodium 134 mmol/L (137-145) L 02/28/19 00:45 Potassium 3.7 mmol/L (3.6-5.0) 02/28/19 00:45 Chloride 97.1 mmol/L (98-107) L 02/28/19 00:45 Carbon Dioxide 29 mmol/L (22-30) 02/28/19 00:45 12 mmol/L 02/28/19 00:45 BUN 27 mg/dL (7-17) H 02/28/19 00:45 2.8 mg/dL (0.7-1.2) H 02/28/19 00:45 Estimated GFR 21 ml/min 02/28/19 00:45 10 % 02/28/19 00:45 Glucose 117 mg/dL (65-100) H 02/28/19 00:45 Calcium 8.4 mg/dL (8.4-10.2) 02/28/19 00:45 0.40 mg/dL (0.1-1.2) 02/28/19 00:45 AST 13 units/L (5-40) 02/28/19 00:45 ALT < 5 units/L (7-56) L 02/28/19 00:45 47 units/L (35-129) 02/28/19 00:45 46 units/L (30-135) 02/28/19 06:07 CK-MB (CK-2) 3.5 ng/mL (0.0-4.0) 02/28/19 06:07 CK-MB (CK-2) Rel Index 7.6 (0-4) H 02/28/19 06:07 0.188 ng/mL (0.00-0.029) H* 02/28/19 06:07 6.0 g/dL (6.3-8.2) L 02/28/19 00:45 2.5 g/dL (3.9-5) L 02/28/19 00:45 0.7 % 02/28/19 00:45 Triglycerides 94 mg/dL (2-149) 02/28/19 00:45 Cholesterol 86 mg/dL (50-199) 02/28/19 00:45 26 mg/dL (50-130) L 02/28/19 00:45 47 mg/dL (40-59) 02/28/19 00:45 1.82 % 02/28/19 00:45 11 units/L (13-60) L 02/28/19 00:45 Active Medications - Current Medications Current Medications: Generic Name Dose Route Start Last Admin Trade Name Freq PRN Reason Stop Dose Admin Acetaminophen 650 mg 02/28/19 04:19 Tylenol PO Q4H PRN Pain MILD(1-3)/Fever >100.5/[place]YMOUR Acetaminophen/Hydrocodone Bitart 2 each 02/28/19 04:20 02/28/19 06:15 [place] 5/325 PO 2 each Q6H PRN Administration Pain, Moderate (4-6) Sodium Chloride 100 mls @ 999 mls/hr 02/28/19 09:00 Nacl 0.9% IV MARCELA PRN Hypotension Ondansetron HCl 4 mg 02/28/19 04:19 Zofran IV Q8H PRN Nausea And Vomiting Senna 8.6 mg 02/28/19 10:00 Senokot PO Q12HR ROSELINE Sodium Chloride 10 ml 02/28/19 10:00 Sodium Chloride Flush Syringe 10 Ml IV BID ROSELINE
[2019-02-28 12:18] LABS: Hematocrit 20.2 % (30.3-42.9); Hemoglobin 6.9 gm/dl (10.1-14.3)
[2019-02-28 12:44] LABS: Creatine Kinase MB 3.3 ng/mL (0.0-4.0)
--- NOTE | 2019-02-28 13:58 | Consultation ---
History of Present Illness Consult date: 02/28/19 Requesting physician: FERNANDO ADS Consult reason: chest pain, elevated troponin History of present illness: The patient is a 55 y/o female with a PMH of HTN, DM, ESRD on HD (initiated 1 month ago per pt report), CVA, hypothyroidism, anemia, schizophrenia, and ascites requiring previous paracentesis. She is previously unknown to our practice. Pt states she usually goes to [facility]. Pt presented to ED with c/o vomit ing blood for the past 5 days. She states that she did have some chest pain associated with vomiting. Pt is a rather poor historian and does not provide any additional details. Per GI team, pt is known to have recurrent UGI bleeding and undergone multiple EGDs with last EGD 02/13/19 showing large 4cm ulcer on lesser curve (bx negative; negative colonoscopy at [facility] per pt report 01/2019), and is s/p empiric embolization of Left gastric artery by IR 02/10/19. Pt is scheduled for EGD and is noted to have elevated troponins and thus cardiology has been consulted to provide cardiac risk stratification. Pt is seen in dialysis and denies any current complaints. Past History Past Medical History: diabetes, ESRD, hypertension Past Surgical History: (x3), total hip replacement Social history: other ([facility] resident) Family history: no significant family history Medications and Allergies Allergies Allergy/AdvReac Type Severity Reaction Status Date / Time guaifenesin [From Robitussin] Allergy Hives Verified 02/09/19 07:00 Penicillins Allergy Hives Verified 02/09/19 07:00 Home Medications Medication Instructions Recorded Confirmed Last Taken Type Acetaminophen [Acetaminophen TAB] 650 mg PO Q12HR PRN 02/09/19 02/28/19 Unknown History Polyethylene Glycol 3350 [Miralax 17 gm PO QDAY 02/09/19 02/28/19 Unknown History 3350] Albuterol Sulfate [Proair 2 puff IH Q6HR PRN 02/28/19 02/28/19 Unknown History Respiclick] Amlodipine Besylate [Norvasc] 10 mg PO DAILY 02/28/19 02/28/19 Unknown History Antifungal 1% CREAM 1 pack TP DAILY 02/28/19 02/28/19 Unknown History Calcium Acetate [Phoslo] 667 mg PO TID 02/28/19 02/28/19 Unknown History Ferrous Sulfate [Feosol] 325 mg PO BID 02/28/19 02/28/19 Unknown History Folic Acid [Folvite] 1 mg PO QDAY 02/28/19 02/28/19 Unknown History Glucagon (Human Recomb) [Glucagen] 1 mg IM Q15MIN PRN 02/28/19 02/28/19 Unknown History Insulin Lispro [Humalog Kwikpen 100 unit SQ PRN PRN 02/28/19 02/28/19 Unknown History U-100] Levothyroxine [Synthroid] 150 mcg PO QAM 02/28/19 02/28/19 Unknown History PARoxetine HCl [PARoxetine] 20 mg PO HS 02/28/19 02/28/19 Unknown History Sennosides Tab [Senokot] 1 tab PO HS PRN 02/28/19 02/28/19 Unknown History Thiamine [Vitamin B-1] 100 mg PO QDAY 02/28/19 02/28/19 Unknown History risperiDONE [Risperdal] 2 mg PO DAILY 02/28/19 02/28/19 Unknown History Active Meds: Active Medications Acetaminophen (Tylenol) 650 mg PO Q4H PRN PRN Reason: Pain MILD(1-3)/Fever >100.5/[place] Acetaminophen/Hydrocodone Bitart ([place] 5/325) 2 each PO Q6H PRN PRN Reason: Pain, Moderate (4-6) Last Admin: 02/28/19 06:15 Dose: 2 each Documented by: Sodium Chloride (Nacl 0.9%) 100 mls @ 999 mls/hr IV MARCELA PRN PRN Reason: Hypotension Ondansetron HCl (Zofran) 4 mg IV Q8H PRN PRN Reason: Nausea And Vomiting Pantoprazole Sodium (Protonix) 40 mg IV BID ROSELINE Senna (Senokot) 8.6 mg PO Q12HR [facility] Sodium Chloride (Sodium Chloride Flush Syringe 10 Ml) 10 ml IV BID [facility] Review of Systems Constitutional: no weight loss, no weight gain, no fever, no chills, no sweats Ears, nose, mouth and throat: no ear pain, no nose pain, no sinus pressure, no sinus pain Cardiovascular: chest pain, no orthopnea, no palpitations, no rapid/irregular heart beat, no edema, no syncope, no lightheadedness, no shortness of breath, no dyspnea on exertion, no leg edema Respiratory: no cough, no shortness of breath, no dyspnea on exertion, no congestion, no wheezing, no pain on inspiration Gastrointestinal: abdominal pain, nausea, vomiting, hematemesis, no diarrhea, no constipation, no change in bowel habits, no BRBPR, no melena Genitourinary Female: no pelvic pain, no flank pain, no dysuria, no urinary frequency, no urgency Musculoskeletal: no neck stiffness, no neck pain, no shooting arm pain, no arm numbness/tingling, no low back pain, no shooting leg pain, no leg numbness /tingling Integumentary: no rash, no pruritis, no redness, no sores, no wounds Neurological: no head injury, no paralysis, no weakness, no parathesias, no numbness, no tingling, no seizures, no syncope Psychiatric: no anxiety Endocrine: no cold intolerance, no heat intolerance Hematologic/Lymphatic: no easy bruising, no easy bleeding Allergic/Immunologic: no urticaria, no wheezing Physical Examination Vital Signs Pulse Resp BP Pulse Ox 105 H 11 L 150/85 95 02/28/19 00:27 02/28/19 00:27 02/28/19 00:27 02/28/19 00:27 General appearance: no acute distress HEENT: Positive: PERRL, Normocephaly, Mucus Membranes Moist Neck: Positive: neck supple, trachea midline Cardiac: Positive: Reg Rate and Rhythm, S1/S2 Lungs: Positive: clear to auscultation Neuro: Positive: Grossly Intact Abdomen: Negative: Tender Skin: Negative: Rash Musculoskeletal: No Pain Extremities: Absent: edema Results 02/28/19 12:09 02/28/19 00:45 Cardiac Enzymes 02/28/19 02/28/19 02/28/19 Range/Units 00:45 06:07 12:09 AST 13 (5-40) units/L CK-MB (CK-2) 3.5 3.3 (0.0-4.0) ng/mL Coagulation 02/28/19 Range/Units 00:55 PT 14.4 (12.2-14.9) Sec. INR 1.15 H (0.87-1.13) APTT 39.4 H (24.2-36.6) Sec. Lipids 02/28/19 Range/Units 00:45 Triglycerides 94 (2-149) mg/dL Cholesterol 86 (50-199) mg/dL HDL Cholesterol 47 (40-59) mg/dL Cholesterol/HDL Ratio 1.82 % CBC 02/28/19 02/28/19 02/28/19 Range/Units 00:45 06:07 12:09 WBC 5.9 (4.5-11.0) K/mm3 RBC 3.42 L (3.65-5.03) M/mm3 Hgb 10.0 L 9.4 L 6.9 L (10.1-14.3) gm/dl Hct 30.2 L 28.6 L 20.2 L D (30.3-42.9) % Plt Count 173 (140-440) K/mm3 Lymph # 1.0 L (1.2-5.4) K/mm3 [place] # 0.2 (0.0-0.8) K/mm3 Eos # 0.0 (0.0-0.4) K/mm3 Baso # 0.1 (0.0-0.1) K/mm3 Comprehensive Metabolic Panel 02/28/19 Range/Units 00:45 Sodium 134 L (137-145) mmol/L Potassium 3.7 (3.6-5.0) mmol/L Chloride 97.1 L (98-107) mmol/L Carbon Dioxide 29 (22-30) mmol/L BUN 27 H (7-17) mg/dL Creatinine 2.8 H (0.7-1.2) mg/dL Glucose 117 H (65-100) mg/dL Calcium 8.4 (8.4-10.2) mg/dL AST 13 (5-40) units/L ALT < 5 L (7-56) units/L Alkaline Phosphatase 47 (35-129) units/L Total Protein 6.0 L (6.3-8.2) g/dL Albumin 2.5 L (3.9-5) g/dL - Imaging and Cardiology Echo: report reviewed EKG: report reviewed, image reviewed EKG interpretations - Telemetry EKG Rhythm: Sinus Rhythm - EKG Sinus rhythms and dysrhythmias: sinus rhythm Assessment and Plan Currently stable cardiac status, pt denies any current complaints, she states her chest pain was associated with vomiting and is currently resolved. Pt is n oted to have elevated troponins which appear to be c/w NSTEMI type II, ECG with no acute ischemic changes. Echo reviewed - EF 50-55%, impaired relaxation, ? infiltrative CMP (? amyloid). Can consider further w/u after GI w/u is completed. Pt is at moderate cardiovascular risk for EGD. There are no current immediate cardiac contraindications to proceeding with EGD at this time. The patient has been seen in conjunction with Dr. Rosales who agrees with the assessment and plan of care. - Patient Problems (1) GI bleed Current Visit: Yes Status: Acute (2) Acute blood loss anemia Current Visit: Yes Status: Acute (3) ESRD (end stage renal disease) on dialysis Current Visit: Yes Status: Chronic (4) Chest pain Current Visit: Yes Status: Resolved (5) HTN (hypertension) Current Visit: Yes Status: Chronic (6) Diabetes Current Visit: Yes Status: Chronic (7) History of CVA (cerebrovascular accident) Current Visit: Yes Status: Chronic (8) Ascites Current Visit: Yes Status: Chronic (9) NSTEMI (non-ST elevated myocardial infarction) Current Visit: Yes Status: Acute Plan to address problem: type II (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
[2019-02-28] MEDS ORDERED: NACL 0.9% 500 ML 500 ML IV SCH (13:59)
[2019-02-28] MEDS ORDERED: PROTONIX IV SCH (14:05)
[2019-02-28] MEDS: SENOKOT PO SCH ×2 (14:22→21:57)
--- NOTE | 2019-02-28 15:09 | Consultation ---
History of Present Illness - Reason for Consult Consult date: 02/28/19 end stage renal disease - History of Present Illness This is a 58 year old woman with ESRD on HD and multiple other co-morbidities who presents with chest pain and hematemesis. She states that she usually has dialysis at an unit near [facility], but is unsure of her general repairer. She states that she has been compliant with her HD sessions, and started about 2 months ago. She presents now to [facility] with vomiting of blood for past several days, as well as chest pain with the vomiting. Patient is generally a poor historian and is unable to provide much further information. Past History Past Medical History: diabetes, ESRD, hypertension Past Surgical History: (x3), total hip replacement Social history: other ([facility] resident) Family history: no significant family history Medications and Allergies Allergies Allergy/AdvReac Type Severity Reaction Status Date / Time guaifenesin [From Robitussin] Allergy Hives Verified 02/09/19 07:00 Penicillins Allergy Hives Verified 02/09/19 07:00 Home Medications Medication Instructions Recorded Confirmed Last Taken Type Acetaminophen [Acetaminophen TAB] 650 mg PO Q12HR PRN 02/09/19 02/28/19 Unknown History Polyethylene Glycol 3350 [Miralax 17 gm PO QDAY 02/09/19 02/28/19 Unknown History 3350] Albuterol Sulfate [Proair 2 puff IH Q6HR PRN 02/28/19 02/28/19 Unknown History Respiclick] Amlodipine Besylate [Norvasc] 10 mg PO DAILY 02/28/19 02/28/19 Unknown History Antifungal 1% CREAM 1 pack TP DAILY 02/28/19 02/28/19 Unknown History Calcium Acetate [Phoslo] 667 mg PO TID 02/28/19 02/28/19 Unknown History Ferrous Sulfate [Feosol] 325 mg PO BID 02/28/19 02/28/19 Unknown History Folic Acid [Folvite] 1 mg PO QDAY 02/28/19 02/28/19 Unknown History Glucagon (Human Recomb) [Glucagen] 1 mg IM Q15MIN PRN 02/28/19 02/28/19 Unknown History Insulin Lispro [Humalog Kwikpen 100 unit SQ PRN PRN 02/28/19 02/28/19 Unknown History U-100] Levothyroxine [Synthroid] 150 mcg PO QAM 02/28/19 02/28/19 Unknown History PARoxetine HCl [PARoxetine] 20 mg PO HS 02/28/19 02/28/19 Unknown History Sennosides Tab [Senokot] 1 tab PO HS PRN 02/28/19 02/28/19 Unknown History Thiamine [Vitamin B-1] 100 mg PO QDAY 02/28/19 02/28/19 Unknown History risperiDONE [Risperdal] 2 mg PO DAILY 02/28/19 02/28/19 Unknown History Active Meds: Active Medications Acetaminophen (Tylenol) 650 mg PO Q4H PRN PRN Reason: Pain MILD(1-3)/Fever >100.5/SEYMOUR Acetaminophen/Hydrocodone Bitart ([place] 5/325) 2 each PO Q6H PRN PRN Reason: Pain, Moderate (4-6) Last Admin: 02/28/19 06:15 Dose: 2 each Documented by: Sodium Chloride (Nacl 0.9%) 100 mls @ 999 mls/hr IV MARCELA PRN PRN Reason: Hypotension Sodium Chloride (Nacl 0.9% 500 Ml) 500 mls @ 0 mls/hr IV ONCE ROSELINE Stop: 03/01/19 06:00 Ondansetron HCl (Zofran) 4 mg IV Q8H PRN PRN Reason: Nausea And Vomiting Pantoprazole Sodium (Protonix) 40 mg IV BID ROSELINE Senna (Senokot) 8.6 mg PO Q12HR ROSELINE Sodium Chloride (Sodium Chloride Flush Syringe 10 Ml) 10 ml IV BID ROSELINE Review of Systems All systems: negative (as per HPI. Patient poor historian but denies any dyspnea or lower extremity edema) Exam - Vital Signs Vital signs: Vital Signs Pulse Resp BP Pulse Ox 105 H 11 L 150/85 95 02/28/19 00:27 02/28/19 00:27 02/28/19 00:27 02/28/19 00:27 - Physical Exam Narrative exam: General appearance: no acute distress, frail appearing HEENT: PERRL, Normocephalic, Mucus Membranes Moist Neck: neck supple, trachea midline Cardiac: Reg Rate and Rhythm, S1/S2 Lungs: clear to auscultation Neuro: Grossly Intact Abdomen: diffusely tender to palpation Skin: intact Musculoskeletal: No Pain Extremities: no edema bilaterally. RIJ CVC noted without purulence Results - Lab Results 02/28/19 12:09 02/28/19 00:45 Most recent lab results WBC 5.9 K/mm3 (4.5-11.0) 02/28/19 00:45 RBC 3.42 M/mm3 (3.65-5.03) L 02/28/19 00:45 Hgb 6.9 gm/dl (10.1-14.3) L 02/28/19 12:09 Hct 20.2 % (30.3-42.9) L D 02/28/19 12:09 MCV 88 fl (79-97) 02/28/19 00:45 MCH 29 pg (28-32) 02/28/19 00:45 MCHC 33 % (30-34) 02/28/19 00:45 RDW 14.6 % (13.2-15.2) 02/28/19 00:45 Plt Count 173 K/mm3 (140-440) 02/28/19 00:45 Lymph % (Auto) 16.9 % (13.4-35.0) 02/28/19 00:45 [place] % (Auto) 3.8 % (0.0-7.3) 02/28/19 00:45 Eos % (Auto) 0.0 % (0.0-4.3) 02/28/19 00:45 Baso % (Auto) 0.9 % (0.0-1.8) 02/28/19 00:45 Lymph # 1.0 K/mm3 (1.2-5.4) L 02/28/19 00:45 [place] # 0.2 K/mm3 (0.0-0.8) 02/28/19 00:45 Eos # 0.0 K/mm3 (0.0-0.4) 02/28/19 00:45 Baso # 0.1 K/mm3 (0.0-0.1) 02/28/19 00:45 Seg Neutrophils % 78.4 % (40.0-70.0) H 02/28/19 00:45 Seg Neutrophils # 4.6 K/mm3 (1.8-7.7) 02/28/19 00:45 PT 14.4 Sec. (12.2-14.9) 02/28/19 00:55 INR 1.15 (0.87-1.13) H 02/28/19 00:55 APTT 39.4 Sec. (24.2-36.6) H 02/28/19 00:55 Sodium 134 mmol/L (137-145) L 02/28/19 00:45 Potassium 3.7 mmol/L (3.6-5.0) 02/28/19 00:45 Chloride 97.1 mmol/L (98-107) L 02/28/19 00:45 Carbon Dioxide 29 mmol/L (22-30) 02/28/19 00:45 12 mmol/L 02/28/19 00:45 BUN 27 mg/dL (7-17) H 02/28/19 00:45 2.8 mg/dL (0.7-1.2) H 02/28/19 00:45 Estimated GFR 21 ml/min 02/28/19 00:45 10 % 02/28/19 00:45 Glucose 117 mg/dL (65-100) H 02/28/19 00:45 Calcium 8.4 mg/dL (8.4-10.2) 02/28/19 00:45 0.40 mg/dL (0.1-1.2) 02/28/19 00:45 AST 13 units/L (5-40) 02/28/19 00:45 ALT < 5 units/L (7-56) L 02/28/19 00:45 47 units/L (35-129) 02/28/19 00:45 38 units/L (30-135) 02/28/19 12:09 CK-MB (CK-2) 3.3 ng/mL (0.0-4.0) 02/28/19 12:09 CK-MB (CK-2) Rel Index 8.6 (0-4) H 02/28/19 12:09 0.145 ng/mL (0.00-0.029) H* D 02/28/19 12:09 6.0 g/dL (6.3-8.2) L 02/28/19 00:45 2.5 g/dL (3.9-5) L 02/28/19 00:45 0.7 % 02/28/19 00:45 Triglycerides 94 mg/dL (2-149) 02/28/19 00:45 Cholesterol 86 mg/dL (50-199) 02/28/19 00:45 26 mg/dL (50-130) L 02/28/19 00:45 47 mg/dL (40-59) 02/28/19 00:45 1.82 % 02/28/19 00:45 11 units/L (13-60) L 02/28/19 00:45 Assessment and Plan Assessment: -ESRD on HD- tolerated HD session today, usually MWF at [place] -NSTEMI -hematemesis -anemia-acutely worsening This is a 58 year old woman with ESRD on HD who presents with hematemesis and chest pain. Plan: -continue HD MWF with UF as tolerated -high risk for clinical deterioration given dropping blood counts, episodic hypotension -serially follow renal function and electrolytes, and blood counts -appreciate cardiology and GI input, consults reviewed -will provide ESAs as indicated, but defer acute blood loss management to GI. Transfuse pRBCs prn, can provide with HD if needed -avoid nephrotoxins, renally dose all medications -strict Is/Os Thank you for this consult, we will continue to follow for all renal-related issues. Please do not hesitate to reach out to us with questions.
--- NOTE | 2019-02-28 15:58 | Event Note ---
Date: 02/28/19 H/H trended down this afternoon with blood transfusion pending. No active signs of bleeding per nursing. Will reschedule EGD to tomorrow once H/H improved. Keep NPO (will be available for emergent EGD if needed).
[2019-02-28 17:19] LABS: Hematocrit 26.9 % (30.3-42.9)
[2019-02-28] MEDS: SODIUM CHLORIDE FLUSH SYRINGE 10 ML IV SCH ×2 (20:38→21:57)
[2019-02-28] MEDS: PROTONIX IV SCH (21:57)
[2019-03-01] MEDS: PROTONIX IV SCH ×3 (05:10→22:43)
[2019-03-01 05:35] LABS: Hematocrit 22.5 % (30.3-42.9); Hemoglobin 7.6 gm/dl (10.1-14.3)
[2019-03-01] MEDS ORDERED: WATER FOR IRRIG STERILE ONE (07:53)
[2019-03-01] MEDS ORDERED: WATER FOR IRRIG STERILE IR ONE (07:53)
[2019-03-01] MEDS ORDERED: NACL 0.9% 1000 ML 1,000 ML IV SCH (09:00)
[2019-03-01] MEDS ORDERED: SUBLIMAZE ONE (09:20)
[2019-03-01] MEDS ORDERED: DIPRIVAN 10 MG/ML IV ONE (09:21)
--- NOTE | 2019-03-01 09:41 | Anesthesia Day of Surgery ---
Anesthesia Day of Surgery - Day of Surgery Patient Examined: Yes Patient H&P Reviewed: Yes Patient is NPO: Yes
--- NOTE | 2019-03-01 09:42 | Operative Report ---
Operative Report Operative Report: Esophagogastroduodenoscopy Procedure Note with Control of bleeding Date of procedure: 03/01/2019 Endoscopist: Tristian Thomas Pre-op diagnosis: Upper GI bleed Post-op diagnosis: Ulcerative esophagitis with blood clot and active oozing of blood s/p clip placement; large ischemic appearing ulcer along lesser curvature Anesthesia: MAC Complications: No immediate complications Estimated blood loss: minimal Procedure: After consent was obtained, the patient was placed in the left lateral decubitus position. The olympus endoscope was inserted into the patient's mouth under direct vision, and advanced into the 2nd portion of the duodenum without difficulty. The patient tolerated the procedure well. The views of the mucosa were good. Patient's vital signs were monitored continuously throughout the procedure. Findings: There was severe ulcerative esophagitis throughout the mid and distal esophagus. There was an adherent clot in the lower esophagus. This was removed with suction and irrigation. Below the clot, there was active oozing of blood (likely mucosal bleed, no obvious visible vessel). No signs of varices. One clip was placed over the site of oozing with hemostasis. There was a large (~4-5 cm) ulcer along the lesser curvature of the stomach as seen on prior endoscopies. There were areas of necrosis without the ulcer. No high risk bleeding lesions were seen. The mucosa around the ulcer was inflamed and erythematous. Biopses were obtained to rule out dysplasia/malignancy. There was erythematous mucosa in the duodenum with bile seen throughout the visualized portion. Impression: 1. Ulcerative esophagitis. Adherent clot with underlying oozing of blood treated with clip x 1 with hemostasis 2. Large ulcer along lesser curvature as seen on prior endoscopy with necrosis appearance. No high risk bleeding lesions. Edges biopsied to rule out malignancy. Recommendations: -cont IV PPI drip -trend labs and transfuse as needed to keep hgb > 7 -keep on clear liquid diet today
--- NOTE | 2019-03-01 09:47 | Anesthesia Consultation ---
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 Ascites) Hx Insulin Dependent Diabetes: Yes (FBS 118) Hx Thyroid Disease: Yes - Hematic Hx Anemia: Yes (Received 3 units PRBC)
[2019-03-01] MEDS: SENOKOT PO SCH ×2 (10:00→22:43)
[2019-03-01] MEDS: SODIUM CHLORIDE FLUSH SYRINGE 10 ML IV SCH ×2 (10:00→22:44)
--- NOTE | 2019-03-01 10:16 | Progress Note ---
Assessment and Plan Assessment and plan: Hematemesis. EGD completed today revealed. Esophagitis with adherent clot and underlying oozing of blood treated with clip x 1 with hemostasis. Also, Large ulcer along lesser curvature as seen on prior endoscopy with necrosis appearance. No high risk bleeding lesions. Edges biopsied to rule out m alignancy. Continue IV PPI. Anemia. Follow H&H and transfuse for hemoglobin less than 7. Etiology is multifactorial. Likely from blood loss and chronic disease. Chest pain. Echocardiogram revealed EF 50-55%, impaired relaxation, ? infiltrative CMP (? amyloid). Can consider further w/u after GI w/u is completed. Elevated troponin. Ischemic evaluation per cardiology. Cardiology following Ascites. Likely related to underlying poor nutrition and ESRD. Continue hemodialysis ESRD. Nephrology following Diabetes mellitus type 2. Continue Accu-Cheks and sliding scale insulin Hypothyroidism. Check TSH. Continue Synthroid. History Interval history: Patient is a 55 y/o female with PMH of ESRD on HD, CHF, CVA, hypothyroidism, DM, anemia, schizophrenia, and ascites 2/2 most likely poor nutrition/ESRD (no evidence of liver disease on CT after review with IR last admission; HCV Ab negative) requiring previous paracentesis (02/14/19; 8300ml removed) who presented to ED with c/o CP, diffuse abd pain, and vomiting blood. Patient underwent EGD this morning for the hematemesis. Patient seen in endoscopy lab. Hospitalist Physical - Constitutional Vitals: Temp Pulse Resp BP Pulse Ox 98.1 F 96 H 19 130/78 99 03/01/19 08:32 03/01/19 08:32 03/01/19 08:32 03/01/19 08:32 03/01/19 08:32 General appearance: Present: no acute distress, other (somnolent) - EENT Eyes: Present: PERRL, EOM intact ENT: hearing intact, clear oral mucosa, dentition normal - Neck Neck: Present: supple, normal ROM - Respiratory Respiratory effort: normal Respiratory: bilateral: CTA - Cardiovascular Rhythm: regular Heart Sounds: Present: S1 & S2. Absent: gallop, rub - Extremities Extremities: no ischemia, No edema, Full ROM - Abdominal General gastrointestinal: soft, non-tender, non-distended, normal bowel sounds - Integumentary Integumentary: Present: clear, warm, dry - Neurologic Neurologic: CNII-XII intact, moves all extremities Results - Labs CBC & Chem 7: 03/01/19 04:11 02/28/19 00:45 Labs: Laboratory Last Values WBC 5.9 K/mm3 (4.5-11.0) 02/28/19 00:45 RBC 3.42 M/mm3 (3.65-5.03) L 02/28/19 00:45 Hgb 7.6 gm/dl (10.1-14.3) L 03/01/19 04:11 Hct 22.5 % (30.3-42.9) L 03/01/19 04:11 MCV 88 fl (79-97) 02/28/19 00:45 MCH 29 pg (28-32) 02/28/19 00:45 MCHC 33 % (30-34) 02/28/19 00:45 RDW 14.6 % (13.2-15.2) 02/28/19 00:45 Plt Count 173 K/mm3 (140-440) 02/28/19 00:45 Lymph % (Auto) 16.9 % (13.4-35.0) 02/28/19 00:45 [place] % (Auto) 3.8 % (0.0-7.3) 02/28/19 00:45 Eos % (Auto) 0.0 % (0.0-4.3) 02/28/19 00:45 Baso % (Auto) 0.9 % (0.0-1.8) 02/28/19 00:45 Lymph # 1.0 K/mm3 (1.2-5.4) L 02/28/19 00:45 [place] # 0.2 K/mm3 (0.0-0.8) 02/28/19 00:45 Eos # 0.0 K/mm3 (0.0-0.4) 02/28/19 00:45 Baso # 0.1 K/mm3 (0.0-0.1) 02/28/19 00:45 Seg Neutrophils % 78.4 % (40.0-70.0) H 02/28/19 00:45 Seg Neutrophils # 4.6 K/mm3 (1.8-7.7) 02/28/19 00:45 PT 14.4 Sec. (12.2-14.9) 02/28/19 00:55 INR 1.15 (0.87-1.13) H 02/28/19 00:55 APTT 39.4 Sec. (24.2-36.6) H 02/28/19 00:55 Sodium 134 mmol/L (137-145) L 02/28/19 00:45 Potassium 3.7 mmol/L (3.6-5.0) 02/28/19 00:45 Chloride 97.1 mmol/L (98-107) L 02/28/19 00:45 Carbon Dioxide 29 mmol/L (22-30) 02/28/19 00:45 12 mmol/L 02/28/19 00:45 BUN 27 mg/dL (7-17) H 02/28/19 00:45 2.8 mg/dL (0.7-1.2) H 02/28/19 00:45 Estimated GFR 21 ml/min 02/28/19 00:45 10 % 02/28/19 00:45 Glucose 117 mg/dL (65-100) H 02/28/19 00:45 POC Glucose 147 (70-105) H 02/28/19 16:31 Calcium 8.4 mg/dL (8.4-10.2) 02/28/19 00:45 0.40 mg/dL (0.1-1.2) 02/28/19 00:45 AST 13 units/L (5-40) 02/28/19 00:45 ALT < 5 units/L (7-56) L 02/28/19 00:45 47 units/L (35-129) 02/28/19 00:45 38 units/L (30-135) 02/28/19 12:09 CK-MB (CK-2) 3.3 ng/mL (0.0-4.0) 02/28/19 12:09 CK-MB (CK-2) Rel Index 8.6 (0-4) H 02/28/19 12:09 0.145 ng/mL (0.00-0.029) H* D 02/28/19 12:09 6.0 g/dL (6.3-8.2) L 02/28/19 00:45 2.5 g/dL (3.9-5) L 02/28/19 00:45 0.7 % 02/28/19 00:45 Triglycerides 94 mg/dL (2-149) 02/28/19 00:45 Cholesterol 86 mg/dL (50-199) 02/28/19 00:45 26 mg/dL (50-130) L 02/28/19 00:45 47 mg/dL (40-59) 02/28/19 00:45 1.82 % 02/28/19 00:45 11 units/L (13-60) L 02/28/19 00:45 Blood Type B POSITIVE 02/28/19 17:07 Antibody Screen Negative 02/28/19 17:07 Crossmatch See Detail 02/28/19 17:07 Active Medications - Current Medications Current Medications: Generic Name Dose Route Start Last Admin Trade Name Freq PRN Reason Stop Dose Admin Acetaminophen 650 mg 02/28/19 04:19 Tylenol PO Q4H PRN Pain MILD(1-3)/Fever >100.5/SEYMOUR Acetaminophen/Hydrocodone Bitart 2 each 02/28/19 04:20 02/28/19 06:15 [place] 5/325 PO 2 each Q6H PRN Administration Pain, Moderate (4-6) Sodium Chloride 100 mls @ 999 mls/hr 02/28/19 09:00 Nacl 0.9% IV MARCELA PRN Hypotension Sodium Chloride 1,000 mls @ 50 mls/hr 03/01/19 09:00 03/01/19 08:38 Nacl 0.9% 1000 Ml IV 50 mls/hr DIRECT ROSELINE Administration Ondansetron HCl 4 mg 02/28/19 04:19 Zofran IV Q8H PRN Nausea And Vomiting Pantoprazole Sodium 40 mg 02/28/19 20:36 03/01/19 05:10 Protonix IV 40 mg BID ROSELINE Administration Senna 8.6 mg 02/28/19 10:00 02/28/19 21:57 Senokot PO Not Given Q12HR ROSELINE Sodium Chloride 10 ml 02/28/19 10:00 02/28/19 21:57 Sodium Chloride Flush Syringe 10 Ml IV 10 ml BID ROSELINE Administration
[2019-03-01] MEDS ORDERED: NACL 0.9% 1000 ML 1,000 ML ONE (12:51)
[2019-03-01] MEDS ORDERED: PHENYLEPHRINE/NS Syringe 1,000 MCG/10 ML IV ONE (13:00)
--- NOTE | 2019-03-01 15:48 | Progress Note ---
Assessment and Plan Assessment: -ESRD on HD- tolerated HD session today, usually MWF at [place] -NSTEMI -hematemesis s/p EGD -anemia This is a 58 year old woman with ESRD on HD who presents with hematemesis and chest pain. Plan: -continue HD MWF with UF as tolerated -serially follow renal function and electrolytes, and blood counts -appreciate cardiology and GI input, consults reviewed -will provide ESAs as indicated, but defer acute blood loss management to GI. Transfuse pRBCs prn, can provide with HD if needed -avoid nephrotoxins, renally dose all medications -strict Is/Os Thank you for this consult, we will continue to follow for all renal-related issues. Please do not hesitate to reach out to us with questions. Subjective Date of service: 03/01/19 Principal diagnosis: Gi bleed Interval history: no acute issues overnight. Underwent EGD this morning due to acute blood loss. Drowsy this afternoon but denies any issues with HD yesterday. Objective - Exam Narrative Exam: General appearance: no acute distress, frail appearing HEENT: PERRL, Normocephalic, Mucus Membranes Moist Neck: neck supple, trachea midline Cardiac: Reg Rate and Rhythm, S1/S2 Lungs: clear to auscultation Neuro: Grossly Intact Abdomen: diffusely tender to palpation Skin: intact Musculoskeletal: No Pain Extremities: no edema bilaterally. RIJ CVC noted without purulence - Vital Signs Vital signs: Vital Signs - 12hr 03/01/19 03/01/19 03/01/19 04:34 06:00 07:53 Temperature 98.0 F 98.4 F Pulse Rate 94 H 87 93 H Respiratory 20 16 Rate Blood Pressure 119/76 112/62 O2 Sat by Pulse 99 100 Oximetry 03/01/19 03/01/19 03/01/19 08:28 08:32 09:40 Temperature 98.1 F 98.1 F 97.6 F Pulse Rate 96 H 96 H 89 Respiratory 19 19 13 Rate Blood Pressure 130/78 130/78 128/67 O2 Sat by Pulse 99 99 99 Oximetry 03/01/19 03/01/19 03/01/19 09:55 10:15 10:20 Temperature Pulse Rate 90 85 90 Respiratory 14 14 15 Rate Blood Pressure 110/74 110/74 114/61 O2 Sat by Pulse 100 100 100 Oximetry 03/01/19 10:57 Temperature 97.9 F Pulse Rate 89 Respiratory 18 Rate Blood Pressure 106/62 O2 Sat by Pulse 93 Oximetry - Lab 03/01/19 04:11 02/28/19 00:45 Most recent lab results Calcium 8.4 mg/dL (8.4-10.2) 02/28/19 00:45 Medications & Allergies - Medications Allergies/Adverse Reactions: Allergies guaifenesin [From Robitussin] Allergy (Verified 02/09/19 07:00) Hives Penicillins Allergy (Verified 02/09/19 07:00) Hives Home Medications: Home Medications Medication Instructions Recorded Confirmed Last Taken Type Acetaminophen [Acetaminophen TAB] 650 mg PO Q12HR PRN 02/09/19 02/28/19 Unknown History Polyethylene Glycol 3350 [Miralax 17 gm PO QDAY 02/09/19 02/28/19 Unknown History 3350] Albuterol Sulfate [Proair 2 puff IH Q6HR PRN 02/28/19 02/28/19 Unknown History Respiclick] Amlodipine Besylate [Norvasc] 10 mg PO DAILY 02/28/19 02/28/19 Unknown History Antifungal 1% CREAM 1 pack TP DAILY 02/28/19 02/28/19 Unknown History Calcium Acetate [Phoslo] 667 mg PO TID 02/28/19 02/28/19 Unknown History Ferrous Sulfate [Feosol] 325 mg PO BID 02/28/19 02/28/19 Unknown History Folic Acid [Folvite] 1 mg PO QDAY 02/28/19 02/28/19 Unknown History Glucagon (Human Recomb) [Glucagen] 1 mg IM Q15MIN PRN 02/28/19 02/28/19 Unknown History Insulin Lispro [Humalog Kwikpen 100 unit SQ PRN PRN 02/28/19 02/28/19 Unknown History U-100] Levothyroxine [Synthroid] 150 mcg PO QAM 02/28/19 02/28/19 Unknown History PARoxetine HCl [PARoxetine] 20 mg PO HS 02/28/19 02/28/19 Unknown History Sennosides Tab [Senokot] 1 tab PO HS PRN 02/28/19 02/28/19 Unknown History Thiamine [Vitamin B-1] 100 mg PO QDAY 02/28/19 02/28/19 Unknown History risperiDONE [Risperdal] 2 mg PO DAILY 02/28/19 02/28/19 Unknown History Active Medications: Generic Name Dose Route Start Last Admin Trade Name Freq PRN Reason Stop Dose Admin Acetaminophen 650 mg 02/28/19 04:19 Tylenol PO Q4H PRN Pain MILD(1-3)/Fever >100.5/[place]YMOUR Acetaminophen/Hydrocodone Bitart 2 each 02/28/19 04:20 02/28/19 06:15 [place] 5/325 PO 2 each Q6H PRN Administration Pain, Moderate (4-6) Sodium Chloride 100 mls @ 999 mls/hr 02/28/19 09:00 Nacl 0.9% IV MARCELA PRN Hypotension Sodium Chloride 1,000 mls @ 50 mls/hr 03/01/19 09:00 03/01/19 08:38 Nacl 0.9% 1000 Ml IV 50 mls/hr DIRECT ROSELINE Administration Ondansetron HCl 4 mg 02/28/19 04:19 Zofran IV Q8H PRN Nausea And Vomiting Pantoprazole Sodium 40 mg 02/28/19 20:36 03/01/19 05:10 Protonix IV 40 mg BID ROSELINE Administration Senna 8.6 mg 02/28/19 10:00 02/28/19 21:57 Senokot PO Not Given Q12HR ROSELINE Sodium Chloride 10 ml 02/28/19 10:00 02/28/19 21:57 Sodium Chloride Flush Syringe 10 Ml IV 10 ml BID ROSELINE Administration
[2019-03-01] MEDS ORDERED: PROCRIT IV PRN (16:00)
[2019-03-01 19:38] LABS: Bacteria,Urine 1+ /HPF (Negative); Bilirubin,Urine NEG (Negative); Blood,Urine MOD (Negative); Color,Urine Yellow (Yellow); Urobilinogen,Urine < 2.0 mg/dL (<2.0)
[2019-03-01 19:39] LABS: Protein,Urine >500 mg/dL (Negative); WBC,Urine > 182.0 /HPF (0.0-6.0)
[2019-03-01] MEDS: NORCO 5/325 PO PRN (22:43)
--- NOTE | 2019-03-02 09:49 | Consultation ---
History of Present Illness - Reason for Consult Consult date: 03/02/19 upper GI bleeding - History of Present Illness Patient with a history of upper GI bleeding previously treated with Gelfoam and coil embolization of the left gastric artery. She returns with a repeat episodes of hematemesis and underwent endoscopy which demonstrates erosive gastritis with bleeding without the presence of varices and the lesser curvature ulcer. On examination today, the patient does not admit to hematemesis overnight following her procedure. Resting comfortably in bed and requesting food. Past History Past Medical History: diabetes, ESRD, hypertension Past Surgical History: (x3), total hip replacement, Other (left gastric artery embolization) Social history: other ([facility] resident) Family history: no significant family history Medications and Allergies Allergies Allergy/AdvReac Type Severity Reaction Status Date / Time guaifenesin [From Robitussin] Allergy Hives Verified 02/09/19 07:00 Penicillins Allergy Hives Verified 02/09/19 07:00 Home Medications Medication Instructions Recorded Confirmed Last Taken Type Acetaminophen [Acetaminophen TAB] 650 mg PO Q12HR PRN 02/09/19 02/28/19 Unknown History Polyethylene Glycol 3350 [Miralax 17 gm PO QDAY 02/09/19 02/28/19 Unknown Hist ory 3350] Albuterol Sulfate [Proair 2 puff IH Q6HR PRN 02/28/19 02/28/19 Unknown History Respiclick] Amlodipine Besylate [Norvasc] 10 mg PO DAILY 02/28/19 02/28/19 Unknown History Antifungal 1% CREAM 1 pack TP DAILY 02/28/19 02/28/19 Unknown History Calcium Acetate [Phoslo] 667 mg PO TID 02/28/19 02/28/19 Unknown History Ferrous Sulfate [Feosol] 325 mg PO BID 02/28/19 02/28/19 Unknown History Folic Acid [Folvite] 1 mg PO QDAY 02/28/19 02/28/19 Unknown History Glucagon (Human Recomb) [Glucagen] 1 mg IM Q15MIN PRN 02/28/19 02/28/19 Unknown History Insulin Lispro [Humalog Kwikpen 100 unit SQ PRN PRN 02/28/19 02/28/19 Unknown History U-100] Levothyroxine [Synthroid] 150 mcg PO QAM 02/28/19 02/28/19 Unknown History PARoxetine HCl [PARoxetine] 20 mg PO HS 02/28/19 02/28/19 Unknown History Sennosides Tab [Senokot] 1 tab PO HS PRN 02/28/19 02/28/19 Unknown History Thiamine [Vitamin B-1] 100 mg PO QDAY 02/28/19 02/28/19 Unknown History risperiDONE [Risperdal] 2 mg PO DAILY 02/28/19 02/28/19 Unknown History Active Meds: Active Medications Acetaminophen (Tylenol) 650 mg PO Q4H PRN PRN Reason: Pain MILD(1-3)/Fever >100.5/[place] Acetaminophen/Hydrocodone Bitart ([place] 5/325) 2 each PO Q6H PRN PRN Reason: Pain, Moderate (4-6) Last Admin: 03/01/19 22:43 Dose: 2 each Documented by: Epoetin Jean Carlos (Procrit) 20,000 unit IV MARCELA PRN PRN Reason: hemodialysis Sodium Chloride (Nacl 0.9%) 100 mls @ 999 mls/hr IV MARCELA PRN PRN Reason: Hypotension Sodium Chloride (Nacl 0.9% 1000 Ml) 1,000 mls @ 50 mls/hr IV DIRECT [facility] Last Admin: 03/01/19 08:38 Dose: 50 mls/hr Documented by: Ondansetron HCl (Zofran) 4 mg IV Q8H PRN PRN Reason: Nausea And Vomiting Pantoprazole Sodium (Protonix) 40 mg IV BID [facility] Last Admin: 03/01/19 22:43 Dose: 40 mg Documented by: Senna (Senokot) 8.6 mg PO Q12HR [facility] Last Admin: 03/01/19 22:43 Dose: 8.6 mg Documented by: Sodium Chloride (Sodium Chloride Flush Syringe 10 Ml) 10 ml IV BID [facility] Last Admin: 03/01/19 22:44 Dose: 10 ml Documented by: Review of Systems All systems: negative Exam - Constitutional Vitals: Temp Pulse Resp BP Pulse Ox 97.9 F 89 18 120/71 99 03/02/19 09:05 03/02/19 09:05 03/02/19 09:05 03/02/19 09:05 03/02/19 09:05 General appearance: Present: no acute distress - EENT Eyes: Present: EOM intact ENT: hearing intact - Neck Neck: Present: supple - Respiratory Respiratory effort: normal - Abdominal General gastrointestinal: Present: deferred Female genitourinary: Present: deferred - Rectal Rectal Exam: deferred - Psychiatric Psychiatric: cooperative Results - Labs CBC & Chem 7: 03/01/19 04:11 02/28/19 00:45 Labs: Abnormal lab results 03/01/19 03/01/19 03/01/19 Range/Units 08:57 19:10 21:11 POC Glucose 118 H 122 H (70-105) Urine WBC (Auto) > 182.0 H (0.0-6.0) /HPF 03/02/19 Range/Units 08:22 POC Glucose 107 H (70-105) Urine WBC (Auto) (0.0-6.0) /HPF Assessment and Plan If the patient experiences recurrent upper GI bleeding, would recommend the patient undergo a CTA with arterial and delayed imaging to determine if a source of the bleeding can be identified. However, the patient has previously undergone what would be appropriate treatment with left gastric artery embolization.
[2019-03-02] MEDS: SENOKOT PO SCH ×2 (10:00→22:06)
[2019-03-02] MEDS: SODIUM CHLORIDE FLUSH SYRINGE 10 ML IV SCH ×2 (10:00→22:06)
[2019-03-02] MEDS: PROTONIX IV SCH ×2 (10:00→22:05)
[2019-03-02 10:15] LABS: Hematocrit 26.2 % (30.3-42.9); Hemoglobin 8.8 gm/dl (10.1-14.3)
--- NOTE | 2019-03-02 11:16 | Progress Note ---
Assessment and Plan (1) GI bleed Current Visit: Yes Status: Acute (2) Acute blood loss anemia Current Visit: Yes Status: Acute (3) ESRD (end stage renal disease) on dialysis Current Visit: Yes Status: Chronic (4) Chest pain Current Visit: Yes Status: Resolved (5) HTN (hypertension) Current Visit: Yes Status: Chronic (6) Diabetes Current Visit: Yes Status: Chronic (7) History of CVA (cerebrovascular accident) Current Visit: Yes Status: Chronic (8) Ascites Current Visit: Yes Status: Chronic (9) NSTEMI (non-ST elevated myocardial infarction) Current Visit: Yes Status: Acute Plan to address problem: type II (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 Subjective Date of service: 03/02/19 Principal diagnosis: Gi bleed Interval history: Waiting for HD. No chest pain. Objective Vital Signs Temp Pulse Resp BP Pulse Ox 03/02/19 09:05 97.9 F 89 18 120/71 99 03/02/19 06:00 78 03/02/19 03:09 98.1 F 87 18 134/73 98 03/02/19 02:10 20 100 03/01/19 23:29 98.3 F 85 18 105/66 98 03/01/19 22:00 90 03/01/19 19:32 98.1 F 88 18 112/60 96 03/01/19 16:04 97.9 F 88 18 118/68 100 03/01/19 14:00 90 - Physical Examination HEENT: Positive: PERRL, Normocephaly, Mucus Membranes Moist Neck: Positive: neck supple, trachea midline Neuro: Positive: Grossly Intact Abdomen: Negative: Tender Skin: Negative: Rash Musculoskeletal: No Pain Extremities: Absent: edema - Labs and Meds CBC 03/02/19 Range/Units 09:46 Hgb 8.8 L (10.1-14.3) gm/dl Hct 26.2 L (30.3-42.9) % - Imaging and Cardiology EKG: report reviewed, image reviewed Echo: report reviewed - EKG Sinus rhythms and dysrhythmias: sinus rhythm
--- NOTE | 2019-03-02 12:28 | Progress Note ---
Assessment and Plan Assessment: -ESRD on HD- MWF at [facility] -NSTEMI -hematemesis s/p EGD -anemia This is a 58 year old woman with ESRD on HD who presents with hematemesis and chest pain. Plan: -continue HD MWF with UF as tolerated -serially follow renal function and electrolytes, and blood counts -appreciate cardiology and GI input, consults reviewed -will provide ESAs as indicated -discussed ESRD diet recommendations with patient -avoid nephrotoxins, renally dose all medications -strict Is/Os Thank you for this consult, we will continue to follow for all renal-related issues. Please do not hesitate to reach out to us with questions. Subjective Date of service: 03/02/19 Principal diagnosis: Gi bleed Interval history: no acute issues overnight. Underwent ct this morning for further vascular workup. Seen on HD- denies any issues with cramping, lightheadedness, shortness of breath. Wants to eat but is on clear liquid diet. Objective - Exam Narrative Exam: General appearance: no acute distress, frail appearing HEENT: PERRL, Normocephalic, Mucus Membranes Moist Neck: neck supple, trachea midline Cardiac: Reg Rate and Rhythm, S1/S2 Lungs: clear to auscultation Neuro: Grossly Intact Abdomen: non-tender, normal bowel sounds Skin: intact Musculoskeletal: No Pain Extremities: no edema bilaterally. RIJ CVC noted without purulence - Vital Signs Vital signs: Vital Signs - 12hr 03/02/19 03/02/19 03/02/19 02:10 03:09 06:00 Temperature 98.1 F Pulse Rate 87 78 Respiratory 20 18 Rate Blood Pressure 134/73 O2 Sat by Pulse 100 98 Oximetry 03/02/19 03/02/19 03/02/19 09:05 10:45 10:55 Temperature 97.9 F 97.7 F Pulse Rate 89 83 81 Respiratory 18 16 Rate Blood Pressure 120/71 103/66 111/65 O2 Sat by Pulse 99 Oximetry 03/02/19 03/02/19 03/02/19 11:00 11:15 11:30 Temperature Pulse Rate 81 84 81 Respiratory Rate Blood Pressure 97/57 90/53 93/55 O2 Sat by Pulse Oximetry 03/02/19 11:45 Temperature Pulse Rate 82 Respiratory Rate Blood Pressure 106/66 O2 Sat by Pulse Oximetry - Lab 03/02/19 09:46 02/28/19 00:45 Most recent lab results Calcium 8.4 mg/dL (8.4-10.2) 02/28/19 00:45 Medications & Allergies - Medications Allergies/Adverse Reactions: Allergies guaifenesin [From Robitussin] Allergy (Verified 02/09/19 07:00) Hives Penicillins Allergy (Verified 02/09/19 07:00) Hives Home Medications: Home Medications Medication Instructions Recorded Confirmed Last Taken Type Acetaminophen [Acetaminophen TAB] 650 mg PO Q12HR PRN 02/09/19 02/28/19 Unknown History Polyethylene Glycol 3350 [Miralax 17 gm PO QDAY 02/09/19 02/28/19 Unknown History 3350] Albuterol Sulfate [Proair 2 puff IH Q6HR PRN 02/28/19 02/28/19 Unknown History Respiclick] Amlodipine Besylate [Norvasc] 10 mg PO DAILY 02/28/19 02/28/19 Unknown History Antifungal 1% CREAM 1 pack TP DAILY 02/28/19 02/28/19 Unknown History Calcium Acetate [Phoslo] 667 mg PO TID 02/28/19 02/28/19 Unknown History Ferrous Sulfate [Feosol] 325 mg PO BID 02/28/19 02/28/19 Unknown History Folic Acid [Folvite] 1 mg PO QDAY 02/28/19 02/28/19 Unknown History Glucagon (Human Recomb) [Glucagen] 1 mg IM Q15MIN PRN 02/28/19 02/28/19 Unknown History Insulin Lispro [Humalog Kwikpen 100 unit SQ PRN PRN 02/28/19 02/28/19 Unknown History U-100] Levothyroxine [Synthroid] 150 mcg PO QAM 02/28/19 02/28/19 Unknown History PARoxetine HCl [PARoxetine] 20 mg PO HS 02/28/19 02/28/19 Unknown History Sennosides Tab [Senokot] 1 tab PO HS PRN 02/28/19 02/28/19 Unknown History Thiamine [Vitamin B-1] 100 mg PO QDAY 02/28/19 02/28/19 Unknown History risperiDONE [Risperdal] 2 mg PO DAILY 02/28/19 02/28/19 Unknown History Active Medications: Generic Name Dose Route Start Last Admin Trade Name Freq PRN Reason Stop Dose Admin Acetaminophen 650 mg 02/28/19 04:19 Tylenol PO Q4H PRN Pain MILD(1-3)/Fever >100.5/SEYMOUR Acetaminophen/Hydrocodone Bitart 2 each 02/28/19 04:20 03/01/19 22:43 [place] 5/325 PO 2 each Q6H PRN Administration Pain, Moderate (4-6) Albumin Human 25 gm 03/02/19 12:30 Alburx 25% (Albumin) IV MARCELA PRN Hypotension Epoetin Jean Carlos 20,000 unit 03/01/19 16:00 Procrit IV MARCELA PRN hemodialysis Sodium Chloride 1,000 mls @ 50 mls/hr 03/01/19 09:00 03/01/19 08:38 Nacl 0.9% 1000 Ml IV 50 mls/hr DIRECT ROSELINE Administration Sodium Chloride 100 mls @ 999 mls/hr 03/02/19 12:30 Nacl 0.9% IV MARCELA PRN Hypotension Ondansetron HCl 4 mg 02/28/19 04:19 Zofran IV Q8H PRN Nausea And Vomiting Pantoprazole Sodium 40 mg 02/28/19 20:36 03/01/19 22:43 Protonix IV 40 mg BID ROSELINE Administration Senna 8.6 mg 02/28/19 10:00 03/01/19 22:43 Senokot PO 8.6 mg Q12HR ROSELINE Administration Sodium Chloride 10 ml 02/28/19 10:00 03/01/19 22:44 Sodium Chloride Flush Syringe 10 Ml IV 10 ml BID ROSELINE Administration
--- NOTE | 2019-03-02 12:28 | Gastroenterology Progress Note ---
<AR KEARNEY - Last Filed: 03/02/19 12:35> Assessment and Plan 1.recurrent UGI bleeding -H/H 8.8.2-trending up -continue to monitor H/H and transfuse as needed to keep hgb >7 -s/p empiric embolization of L gastric artery 02/10 -last EGD 02/13/19 revealed large ulcer (4cm) on lesser curve; no visible vessel, mild gastritis, and small hiatal hernia -bx result negative for H pylori or malignancy -s/p repeat EGD yesterday that showed ulcerative esophagitis with adherent clot with underlying oozing of blood (clip x 1 with hemostasis), and large ulcer along lesser curvature as seen on prior endoscopy with necrosis appearance but no high risk bleeding lesions (bx obtained with results pending) -IR following with recommendations for stat CTA for recurrent bleeding -continue PPI -advance diet to full liquids, may start on GI soft diet for dinner or in am is able to tolerate -continue to trend labs and supportive care -will follow 2.ascites -likely related to underlying poor nutrition and ESRD; OK to continue aggressive HD, and remove fluid -no evidence of cirrhosis per prior evaluation and HCV negative -LVP PRN- s/p paracentesis 02/14/19 3.ESRD on HD Subjective Date of service: 03/02/19 Principal diagnosis: Gi bleed Interval history: Patient resting in bed this am w/o acute distress. Reports abd pain improving and no active signs of bleeding overnight or this am per nursing. Tolerating clears. Objective - Constitutional Vitals: Temp Pulse Resp BP Pulse Ox 97.7 F 82 16 106/66 99 03/02/19 10:45 03/02/19 11:45 03/02/19 10:45 03/02/19 11:45 03/02/19 09:05 General appearance: no acute distress, other (chronically ill appearing) - Respiratory Respiratory effort: normal - Cardiovascular Rhythm: regular - Gastrointestinal General gastrointestinal: Present: soft, distended (ascites), normal bowel sounds - Labs CBC & Chem 7: 03/02/19 09:46 02/28/19 00:45 Labs: Laboratory Results - last 24 hr 03/01/19 03/01/19 03/01/19 08:57 19:10 21:11 Hgb Hct POC Glucose 118 H 122 H Urine Color Yellow Urine Turbidity Cloudy Urine pH 5.0 Ur Specific [place] 1.014 Urine Protein >500 Urine Glucose (UA) >=500 Urine Ketones Neg Urine Blood Mod Urine Nitrite Neg Urine Bilirubin Neg Urine Urobilinogen < 2.0 Ur Leukocyte Esterase Lg Urine WBC (Auto) > 182.0 H Urine RBC (Auto) 18.0 U Epithel Cells (Auto) 1.0 Urine Bacteria (Auto) 1+ Urine WBC Clumps 3+ Ur Transition Epith Cell 1 03/02/19 03/02/19 08:22 09:46 Hgb 8.8 L Hct 26.2 L POC Glucose 107 H Urine Color Urine Turbidity Urine pH Ur Specific [place] Urine Protein Urine Glucose (UA) Urine Ketones Urine Blood Urine Nitrite Urine Bilirubin Urine Urobilinogen Ur Leukocyte Esterase Urine WBC (Auto) Urine RBC (Auto) U Epithel Cells (Auto) Urine Bacteria (Auto) Urine WBC Clumps Ur Transition Epith Cell <AIXA PAIZ A - Last Filed: 03/02/19 16:07> Assessment and Plan Patient seen and examined. Agree with note above. Objective - Constitutional Vitals: Temp Pulse Resp BP Pulse Ox 97.5 F L 82 16 128/68 99 03/02/19 14:10 03/02/19 14:10 03/02/19 14:10 03/02/19 14:10 03/02/19 09:05 - Labs CBC & Chem 7: 03/02/19 09:46 02/28/19 00:45 Labs: Laboratory Results - last 24 hr 03/01/19 03/01/19 03/01/19 08:57 19:10 21:11 Hgb Hct POC Glucose 118 H 122 H Urine Color Yellow Urine Turbidity Cloudy Urine pH 5.0 Ur Specific [place] 1.014 Urine Protein >500 Urine Glucose (UA) >=500 Urine Ketones Neg Urine Blood Mod Urine Nitrite Neg Urine Bilirubin Neg Urine Urobilinogen < 2.0 Ur Leukocyte Esterase Lg Urine WBC (Auto) > 182.0 H Urine RBC (Auto) 18.0 U Epithel Cells (Auto) 1.0 Urine Bacteria (Auto) 1+ Urine WBC Clumps 3+ Ur Transition Epith Cell 1 03/02/19 03/02/19 08:22 09:46 Hgb 8.8 L Hct 26.2 L POC Glucose 107 H Urine Color Urine Turbidity Urine pH Ur Specific [place] Urine Protein Urine Glucose (UA) Urine Ketones Urine Blood Urine Nitrite Urine Bilirubin Urine Urobilinogen Ur Leukocyte Esterase Urine WBC (Auto) Urine RBC (Auto) U Epithel Cells (Auto) Urine Bacteria (Auto) Urine WBC Clumps Ur Transition Epith Cell
[2019-03-02] MEDS ORDERED: NACL 0.9% 100 ML IV PRN (12:30)
[2019-03-02] MEDS ORDERED: ALBURX 25% (ALBUMIN) IV PRN (12:30)
--- NOTE | 2019-03-02 13:13 | Progress Note ---
Assessment and Plan Assessment and plan: Hematemesis. EGD completed today revealed. Esophagitis with adherent clot and underlying oozing of blood treated with clip x 1 with hemostasis. Also, Large ulcer along lesser curvature as seen on prior endoscopy with necrosis appearance. No high risk bleeding lesions. Edges biopsied to rule out m alignancy. Continue IV PPI. Anemia. Follow H&H and transfuse for hemoglobin less than 7. Etiology is multifactorial. Likely from blood loss and chronic disease. Chest pain. Echocardiogram revealed EF 50-55%, impaired relaxation, ? infiltrative CMP (? amyloid). Can consider further w/u after GI w/u is completed. Elevated troponin. Ischemic evaluation per cardiology. Cardiology following Ascites. Likely related to underlying poor nutrition and ESRD. Continue hemodialysis ESRD. Nephrology following. Continue hemodialysis Diabetes mellitus type 2. Continue Accu-Cheks and sliding scale insulin Hypothyroidism. Check TSH. Continue Synthroid. History Interval history: Patient is a 55 y/o female with PMH of ESRD on HD, CHF, CVA, hypothyroidism, DM, anemia, schizophrenia, and ascites 2/2 most likely poor nutrition/ESRD (no evidence of liver disease on CT after review with IR last admission; HCV Ab negative) requiring previous paracentesis (02/14/19; 8300ml removed) who presented to ED with c/o CP, diffuse abd pain, and vomiting blood. Patient underwent EGD 03/01 for the hematemesis. Hospitalist Physical - Constitutional Vitals: Temp Pulse Resp BP Pulse Ox 97.7 F 83 16 95/61 99 03/02/19 10:45 03/02/19 12:45 03/02/19 10:45 03/02/19 12:45 03/02/19 09:05 General appearance: Present: no acute distress - EENT Eyes: Present: PERRL, EOM intact ENT: hearing intact, clear oral mucosa, dentition normal - Neck Neck: Present: supple, normal ROM - Respiratory Respiratory effort: normal Respiratory: bilateral: CTA - Cardiovascular Rhythm: regular Heart Sounds: Present: S1 & S2. Absent: gallop, rub - Extremities Extremities: no ischemia, No edema, Full ROM - Abdominal General gastrointestinal: soft, non-tender, non-distended, normal bowel sounds - Integumentary Integumentary: Present: clear, warm, dry - Neurologic Neurologic: CNII-XII intact, moves all extremities Results - Labs CBC & Chem 7: 03/02/19 09:46 08 00:45 Labs: Laboratory Last Values WBC 5.9 K/mm3 (4.5-11.0) 02/28/19 00:45 RBC 3.42 M/mm3 (3.65-5.03) L 02/28/19 00:45 Hgb 8.8 gm/dl (10.1-14.3) L 03/02/19 09:46 Hct 26.2 % (30.3-42.9) L 03/02/19 09:46 MCV 88 fl (79-97) 02/28/19 00:45 MCH 29 pg (28-32) 02/28/19 00:45 MCHC 33 % (30-34) 02/28/19 00:45 RDW 14.6 % (13.2-15.2) 02/28/19 00:45 Plt Count 173 K/mm3 (140-440) 02/28/19 00:45 Lymph % (Auto) 16.9 % (13.4-35.0) 02/28/19 00:45 [place] % (Auto) 3.8 % (0.0-7.3) 02/28/19 00:45 Eos % (Auto) 0.0 % (0.0-4.3) 02/28/19 00:45 Baso % (Auto) 0.9 % (0.0-1.8) 02/28/19 00:45 Lymph # 1.0 K/mm3 (1.2-5.4) L 02/28/19 00:45 [place] # 0.2 K/mm3 (0.0-0.8) 02/28/19 00:45 Eos # 0.0 K/mm3 (0.0-0.4) 02/28/19 00:45 Baso # 0.1 K/mm3 (0.0-0.1) 02/28/19 00:45 Seg Neutrophils % 78.4 % (40.0-70.0) H 02/28/19 00:45 Seg Neutrophils # 4.6 K/mm3 (1.8-7.7) 02/28/19 00:45 PT 14.4 Sec. (12.2-14.9) 02/28/19 00:55 INR 1.15 (0.87-1.13) H 02/28/19 00:55 APTT 39.4 Sec. (24.2-36.6) H 02/28/19 00:55 Sodium 134 mmol/L (137-145) L 02/28/19 00:45 Potassium 3.7 mmol/L (3.6-5.0) 02/28/19 00:45 Chloride 97.1 mmol/L (98-107) L 02/28/19 00:45 Carbon Dioxide 29 mmol/L (22-30) 02/28/19 00:45 12 mmol/L 02/28/19 00:45 BUN 27 mg/dL (7-17) H 02/28/19 00:45 2.8 mg/dL (0.7-1.2) H 02/28/19 00:45 Estimated GFR 21 ml/min 02/28/19 00:45 10 % 02/28/19 00:45 Glucose 117 mg/dL (65-100) H 02/28/19 00:45 POC Glucose 107 (70-105) H 03/02/19 08:22 Calcium 8.4 mg/dL (8.4-10.2) 02/28/19 00:45 0.40 mg/dL (0.1-1.2) 02/28/19 00:45 AST 13 units/L (5-40) 02/28/19 00:45 ALT < 5 units/L (7-56) L 02/28/19 00:45 47 units/L (35-129) 02/28/19 00:45 38 units/L (30-135) 02/28/19 12:09 CK-MB (CK-2) 3.3 ng/mL (0.0-4.0) 02/28/19 12:09 CK-MB (CK-2) Rel Index 8.6 (0-4) H 02/28/19 12:09 0.145 ng/mL (0.00-0.029) H* D 02/28/19 12:09 6.0 g/dL (6.3-8.2) L 02/28/19 00:45 2.5 g/dL (3.9-5) L 02/28/19 00:45 0.7 % 02/28/19 00:45 Triglycerides 94 mg/dL (2-149) 02/28/19 00:45 Cholesterol 86 mg/dL (50-199) 02/28/19 00:45 26 mg/dL (50-130) L 02/28/19 00:45 47 mg/dL (40-59) 02/28/19 00:45 1.82 % 02/28/19 00:45 11 units/L (13-60) L 02/28/19 00:45 Yellow (Yellow) 03/01/19 19:10 Cloudy (Clear) 03/01/19 19:10 5.0 (5.0-7.0) 03/01/19 19:10 Ur Specific [place] 1.014 (1.003-1.030) 03/01/19 19:10 >500 mg/dL (Negative) 03/01/19 19:10 >=500 mg/dL (Negative) 03/01/19 19:10 Neg mg/dL (Negative) 03/01/19 19:10 Mod (Negative) 03/01/19 19:10 Neg (Negative) 03/01/19 19:10 Neg (Negative) 03/01/19 19:10 < 2.0 mg/dL (<2.0) 03/01/19 19:10 Ur Leukocyte Esterase Lg (Negative) 03/01/19 19:10 > 182.0 /HPF (0.0-6.0) H 03/01/19 19:10 18.0 /HPF (0.0-6.0) 03/01/19 19:10 U Epithel Cells (Auto) 1.0 /HPF (0-13.0) 03/01/19 19:10 1+ /HPF (Negative) 03/01/19 19:10 3+ /HPF 03/01/19 19:10 Ur Transition Epith Cell 1 /HPF 03/01/19 19:10 Blood Type B POSITIVE 02/28/19 17:07 Antibody Screen Negative 02/28/19 17:07 Crossmatch See Detail 02/28/19 17:07 Active Medications - Current Medications Current Medications: Generic Name Dose Route Start Last Admin Trade Name Freq PRN Reason Stop Dose Admin Acetaminophen 650 mg 02/28/19 04:19 Tylenol PO Q4H PRN Pain MILD(1-3)/Fever >100.5/SEYMOUR Acetaminophen/Hydrocodone Bitart 2 each 02/28/19 04:20 03/01/19 22:43 [place] 5/325 PO 2 each Q6H PRN Administration Pain, Moderate (4-6) Albumin Human 25 gm 03/02/19 12:30 03/02/19 12:58 Alburx 25% (Albumin) IV 25 gm MARCELA PRN Administration Hypotension Epoetin Jean Carlos 20,000 unit 03/01/19 16:00 03/02/19 12:58 Procrit IV 20,000 unit MARCELA PRN Administration hemodialysis Sodium Chloride 1,000 mls @ 50 mls/hr 03/01/19 09:00 03/01/19 08:38 Nacl 0.9% 1000 Ml IV 50 mls/hr DIRECT ROSELINE Administration Sodium Chloride 100 mls @ 999 mls/hr 03/02/19 12:30 Nacl 0.9% IV MARCELA PRN Hypotension Ondansetron HCl 4 mg 02/28/19 04:19 Zofran IV Q8H PRN Nausea And Vomiting Pantoprazole Sodium 40 mg 02/28/19 20:36 03/01/19 22:43 Protonix IV 40 mg BID ROSELINE Administration Senna 8.6 mg 02/28/19 10:00 03/01/19 22:43 Senokot PO 8.6 mg Q12HR ROSELINE Administration Sodium Chloride 10 ml 02/28/19 10:00 03/01/19 22:44 Sodium Chloride Flush Syringe 10 Ml IV 10 ml BID ROSELINE Administration
[2019-03-02] MEDS: NORCO 5/325 PO PRN (22:06)
[2019-03-03 05:17] LABS: Basophils % (Auto) 1.1 % (0.0-1.8); Hematocrit 21.1 % (30.3-42.9); Hemoglobin 7.1 gm/dl (10.1-14.3); Lymphocytes # (Auto) 1.1 K/mm3 (1.2-5.4); Lymphocytes % (Auto) 36.3 % (13.4-35.0); Mean Corpuscular HGB Conc 34 % (30-34); Mean Corpuscular Volume 86 fl (79-97); Monocytes # (Auto) 0.1 K/mm3 (0.0-0.8); Monocytes % (Auto) 2.8 % (0.0-7.3); Red Blood Count 2.47 M/mm3 (3.65-5.03); Red Cell Distribution Width 16.2 % (13.2-15.2)
[2019-03-03 05:18] LABS: Platelet Count 76 K/mm3 (140-440)
[2019-03-03 06:03] LABS: Calcium 7.7 mg/dL (8.4-10.2)
--- NOTE | 2019-03-03 09:13 | Gastroenterology Progress Note ---
Assessment and Plan 1. Upper gi bleed - ulcerative esophagitis with bleeding stigmata on this admission which was treated with endoclip. known gastric ulcer detailed in previous notes treated with prior embolization (this did not appear to have high risk stigmata on egd this admission). Drop in H/H since yesterday but no signs of overt bleeding. repeat H/H later today and monitor. cont PPI. if labs stable and no signs of bleeding, can likely be discharged tomorrow from gi stand point Subjective Date of service: 03/03/19 Principal diagnosis: Gi bleed Interval history: pt reports improvement in abdominal pain. denies signs of gi bleeding overnight/today. tolerating po Objective - Constitutional Vitals: Temp Pulse Resp BP Pulse Ox 97.5 F L 79 20 138/79 99 03/03/19 07:54 03/03/19 07:54 03/03/19 07:54 03/03/19 07:54 03/03/19 07:54 General appearance: no acute distress - Cardiovascular Rhythm: regular Heart Sounds: Present: S1 & S2 - Gastrointestinal General gastrointestinal: Present: soft, tender (mild diffuse ttp), normal bowel sounds - Neurologic Neurological: alert and oriented x3 - Psychiatric Psychiatric: appropriate mood/affect - Labs CBC & Chem 7: 03/03/19 05:00 03/03/19 05:00 Labs: Laboratory Results - last 24 hr 03/02/19 03/02/19 03/02/19 09:46 15:51 21:04 WBC RBC Hgb 8.8 L Hct 26.2 L MCV MCH MCHC RDW Plt Count Lymph % (Auto) [place] % (Auto) Eos % (Auto) Baso % (Auto) Lymph # [place] # Eos # Baso # Seg Neutrophils % Seg Neutrophils # Sodium Potassium Chloride Carbon Dioxide Anion Gap BUN Creatinine Estimated GFR BUN/Creatinine Ratio Glucose POC Glucose 193 H 123 H Calcium 03/03/19 03/03/19 03/03/19 05:00 05:00 07:16 WBC 3.1 L RBC 2.47 L Hgb 7.1 L Hct 21.1 L MCV 86 MCH 29 MCHC 34 RDW 16.2 H Plt Count 76 L Lymph % (Auto) 36.3 H [place] % (Auto) 2.8 Eos % (Auto) 0.0 Baso % (Auto) 1.1 Lymph # 1.1 L [place] # 0.1 Eos # 0.0 Baso # 0.0 Seg Neutrophils % 59.8 Seg Neutrophils # 1.9 Sodium 136 L Potassium 3.6 Chloride 99.4 Carbon Dioxide 28 Anion Gap 12 BUN 19 H Creatinine 2.7 H Estimated GFR 22 BUN/Creatinine Ratio 7 Glucose 109 H POC Glucose 120 H Calcium 7.7 L
--- NOTE | 2019-03-03 10:04 | Progress Note ---
Assessment and Plan Assessment and plan: Hematemesis. EGD completed today revealed. Esophagitis with adherent clot and underlying oozing of blood treated with clip x 1 with hemostasis. Also, Large ulcer along lesser curvature as seen on prior endoscopy with necrosis appearance. No high risk bleeding lesions. Edges biopsied to rule out m alignancy. Continue IV PPI. Anemia. Follow H&H and transfuse for hemoglobin less than 7. Etiology is multifactorial. Likely from blood loss and chronic disease. Chest pain. Echocardiogram revealed EF 50-55%, impaired relaxation, ? infiltrative CMP (? amyloid). C cardiology to consider further w/u now that GI has signed off. Await cardiology recommendations. Elevated troponin. Ischemic evaluation per cardiology. Cardiology following Ascites. Likely related to underlying poor nutrition and ESRD. Continue hemodialysis ESRD. Nephrology following. Continue hemodialysis Diabetes mellitus type 2. Continue Accu-Cheks and sliding scale insulin Hypothyroidism. Check TSH. Continue Synthroid. History Interval history: Patient is a 55 y/o female with PMH of ESRD on HD, CHF, CVA, hypothyroidism, DM, anemia, schizophrenia, and ascites 2/2 most likely poor nutrition/ESRD (no evidence of liver disease on CT after review with IR last admission; HCV Ab negative) requiring previous paracentesis (02/14/19; 8300ml removed) who presented to ED with c/o CP, diffuse abd pain, and vomiting blood. Patient underwent EGD 03/01 for the hematemesis. Hospitalist Physical - Constitutional Vitals: Temp Pulse Resp BP Pulse Ox 97.5 F L 79 20 138/79 99 03/03/19 07:54 03/03/19 07:54 03/03/19 07:54 03/03/19 07:54 03/03/19 07:54 General appearance: Present: no acute distress - EENT Eyes: Present: PERRL, EOM intact ENT: hearing intact, clear oral mucosa, dentition normal - Neck Neck: Present: supple, normal ROM - Respiratory Respiratory effort: normal Respiratory: bilateral: CTA - Cardiovascular Rhythm: regular Heart Sounds: Present: S1 & S2. Absent: gallop, rub - Extremities Extremities: no ischemia, No edema, Full ROM - Abdominal General gastrointestinal: soft, non-tender, non-distended, normal bowel sounds - Integumentary Integumentary: Present: clear, warm, dry - Neurologic Neurologic: CNII-XII intact, moves all extremities Results - Labs CBC & Chem 7: 03/03/19 05:00 03/03/19 05:00 Labs: Laboratory Last Values WBC 3.1 K/mm3 (4.5-11.0) L 03/03/19 05:00 RBC 2.47 M/mm3 (3.65-5.03) L 03/03/19 05:00 Hgb 7.1 gm/dl (10.1-14.3) L 03/03/19 05:00 Hct 21.1 % (30.3-42.9) L 03/03/19 05:00 MCV 86 fl (79-97) 03/03/19 05:00 MCH 29 pg (28-32) 03/03/19 05:00 MCHC 34 % (30-34) 03/03/19 05:00 RDW 16.2 % (13.2-15.2) H 03/03/19 05:00 Plt Count 76 K/mm3 (140-440) L 03/03/19 05:00 Lymph % (Auto) 36.3 % (13.4-35.0) H 03/03/19 05:00 [place] % (Auto) 2.8 % (0.0-7.3) 03/03/19 05:00 Eos % (Auto) 0.0 % (0.0-4.3) 03/03/19 05:00 Baso % (Auto) 1.1 % (0.0-1.8) 03/03/19 05:00 Lymph # 1.1 K/mm3 (1.2-5.4) L 03/03/19 05:00 [place] # 0.1 K/mm3 (0.0-0.8) 03/03/19 05:00 Eos # 0.0 K/mm3 (0.0-0.4) 03/03/19 05:00 Baso # 0.0 K/mm3 (0.0-0.1) 03/03/19 05:00 Seg Neutrophils % 59.8 % (40.0-70.0) 03/03/19 05:00 Seg Neutrophils # 1.9 K/mm3 (1.8-7.7) 03/03/19 05:00 PT 14.4 Sec. (12.2-14.9) 02/28/19 00:55 INR 1.15 (0.87-1.13) H 02/28/19 00:55 APTT 39.4 Sec. (24.2-36.6) H 02/28/19 00:55 Sodium 136 mmol/L (137-145) L 03/03/19 05:00 Potassium 3.6 mmol/L (3.6-5.0) 03/03/19 05:00 Chloride 99.4 mmol/L (98-107) 03/03/19 05:00 Carbon Dioxide 28 mmol/L (22-30) 03/03/19 05:00 12 mmol/L 03/03/19 05:00 BUN 19 mg/dL (7-17) H 03/03/19 05:00 2.7 mg/dL (0.7-1.2) H 03/03/19 05:00 Estimated GFR 22 ml/min 03/03/19 05:00 7 % 03/03/19 05:00 Glucose 109 mg/dL (65-100) H 03/03/19 05:00 POC Glucose 120 (70-105) H 03/03/19 07:16 Calcium 7.7 mg/dL (8.4-10.2) L 03/03/19 05:00 0.40 mg/dL (0.1-1.2) 02/28/19 00:45 AST 13 units/L (5-40) 02/28/19 00:45 ALT < 5 units/L (7-56) L 02/28/19 00:45 47 units/L (35-129) 02/28/19 00:45 38 units/L (30-135) 02/28/19 12:09 CK-MB (CK-2) 3.3 ng/mL (0.0-4.0) 02/28/19 12:09 CK-MB (CK-2) Rel Index 8.6 (0-4) H 02/28/19 12:09 0.145 ng/mL (0.00-0.029) H* D 02/28/19 12:09 6.0 g/dL (6.3-8.2) L 02/28/19 00:45 2.5 g/dL (3.9-5) L 02/28/19 00:45 0.7 % 02/28/19 00:45 Triglycerides 94 mg/dL (2-149) 02/28/19 00:45 Cholesterol 86 mg/dL (50-199) 02/28/19 00:45 26 mg/dL (50-130) L 02/28/19 00:45 47 mg/dL (40-59) 02/28/19 00:45 1.82 % 02/28/19 00:45 11 units/L (13-60) L 02/28/19 00:45 Yellow (Yellow) 03/01/19 19:10 Cloudy (Clear) 03/01/19 19:10 5.0 (5.0-7.0) 03/01/19 19:10 Ur Specific [place] 1.014 (1.003-1.030) 03/01/19 19:10 >500 mg/dL (Negative) 03/01/19 19:10 >=500 mg/dL (Negative) 03/01/19 19:10 Neg mg/dL (Negative) 03/01/19 19:10 Mod (Negative) 03/01/19 19:10 Neg (Negative) 03/01/19 19:10 Neg (Negative) 03/01/19 19:10 < 2.0 mg/dL (<2.0) 03/01/19 19:10 Ur Leukocyte Esterase Lg (Negative) 03/01/19 19:10 > 182.0 /HPF (0.0-6.0) H 03/01/19 19:10 18.0 /HPF (0.0-6.0) 03/01/19 19:10 U Epithel Cells (Auto) 1.0 /HPF (0-13.0) 03/01/19 19:10 1+ /HPF (Negative) 03/01/19 19:10 3+ /HPF 03/01/19 19:10 Ur Transition Epith Cell 1 /HPF 03/01/19 19:10 Blood Type B POSITIVE 02/28/19 17:07 Antibody Screen Negative 02/28/19 17:07 Crossmatch See Detail 02/28/19 17:07 Active Medications - Current Medications Current Medications: Generic Name Dose Route Start Last Admin Trade Name Freq PRN Reason Stop Dose Admin Acetaminophen 650 mg 02/28/19 04:19 Tylenol PO Q4H PRN Pain MILD(1-3)/Fever >100.5/SEYMOUR Acetaminophen/Hydrocodone Bitart 2 each 02/28/19 04:20 03/02/19 22:06 [place] 5/325 PO 2 each Q6H PRN Administration Pain, Moderate (4-6) Albumin Human 25 gm 03/02/19 12:30 03/02/19 12:58 Alburx 25% (Albumin) IV 25 gm MARCELA PRN Administration Hypotension Epoetin [place] 20,000 unit 03/01/19 16:00 03/02/19 12:58 Procrit IV 20,000 unit MARCELA PRN Administration hemodialysis Sodium Chloride 1,000 mls @ 50 mls/hr 03/01/19 09:00 03/01/19 08:38 Nacl 0.9% 1000 Ml IV 50 mls/hr DIRECT ROSELINE Administration Sodium Chloride 100 mls @ 999 mls/hr 03/02/19 12:30 Nacl 0.9% IV MARCELA PRN Hypotension Ondansetron HCl 4 mg 02/28/19 04:19 Zofran IV Q8H PRN Nausea And Vomiting Pantoprazole Sodium 40 mg 02/28/19 20:36 03/02/19 22:05 Protonix IV 40 mg BID ROSELINE Administration Senna 8.6 mg 02/28/19 10:00 03/02/19 22:06 Senokot PO 8.6 mg Q12HR ROSELINE Administration Sodium Chloride 10 ml 02/28/19 10:00 03/02/19 22:06 Sodium Chloride Flush Syringe 10 Ml IV 10 ml BID ROSELINE Administration
[2019-03-03] MEDS: PROTONIX IV SCH ×2 (10:22→22:16)
[2019-03-03] MEDS: SENOKOT PO SCH ×2 (10:23→22:17)
[2019-03-03] MEDS: SODIUM CHLORIDE FLUSH SYRINGE 10 ML IV SCH ×2 (10:24→22:17)
--- NOTE | 2019-03-03 11:41 | Progress Note ---
Assessment and Plan The patient remains stable from a cardiac standpoint. She will benefit from an ischemic workup once hemoglobin improves. Continue current cardiac management for now. The patient has been seen in conjunction with Dr. Silva, who agrees with the assessment and plan. - Patient Problems (1) Acute blood loss anemia Current Visit: Yes Status: Acute (2) GI bleed Current Visit: Yes Status: Acute (3) NSTEMI (non-ST elevated myocardial infarction) Current Visit: Yes Status: Acute (4) Diabetes Current Visit: Yes Status: Chronic (5) ESRD (end stage renal disease) on dialysis Current Visit: Yes Status: Chronic (6) HTN (hypertension) Current Visit: Yes Status: Chronic (7) Infiltrative cardiomyopathy Current Visit: Yes Status: Suspected (8) Chest pain Current Visit: Yes Status: Resolved (9) Vomiting Current Visit: No Status: Acute (10) Ascites Current Visit: Yes Status: Chronic Subjective Date of service: 03/03/19 Principal diagnosis: Gi bleed Interval history: The patient is lying in bed in [facility]. She denies chest pain and SOB. Hgb is 7.1 this AM. She is currently in SR with rates in the 70s on telemetry. Objective Last Vital Signs Temp 97.5 F L 03/03/19 07:54 Pulse 79 03/03/19 07:54 Resp 20 03/03/19 07:54 BP 138/79 03/03/19 07:54 Pulse Ox 99 03/03/19 07:54 - Physical Examination HEENT: Positive: PERRL, Normocephaly, Mucus Membranes Moist Neck: Positive: neck supple, trachea midline Cardiac: Positive: Reg Rate and Rhythm Lungs: Positive: Normal Exam Neuro: Positive: Grossly Intact, Weakness Abdomen: Positive: Unremarkable. Negative: Tender Skin: Negative: Rash Musculoskeletal: No Pain Extremities: Present: normal. Absent: edema - Labs and Meds CBC 03/03/19 Range/Units 05:00 WBC 3.1 L (4.5-11.0) K/mm3 RBC 2.47 L (3.65-5.03) M/mm3 Hgb 7.1 L (10.1-14.3) gm/dl Hct 21.1 L (30.3-42.9) % Plt Count 76 L (140-440) K/mm3 Lymph # 1.1 L (1.2-5.4) K/mm3 [place] # 0.1 (0.0-0.8) K/mm3 Eos # 0.0 (0.0-0.4) K/mm3 Baso # 0.0 (0.0-0.1) K/mm3 Comprehensive Metabolic Panel 03/03/19 Range/Units 05:00 Sodium 136 L (137-145) mmol/L Potassium 3.6 (3.6-5.0) mmol/L Chloride 99.4 (98-107) mmol/L Carbon Dioxide 28 (22-30) mmol/L BUN 19 H (7-17) mg/dL Creatinine 2.7 H (0.7-1.2) mg/dL Glucose 109 H (65-100) mg/dL Calcium 7.7 L (8.4-10.2) mg/dL - Imaging and Cardiology EKG: report reviewed, image reviewed Echo: report reviewed - Telemetry EKG Rhythm: Sinus Rhythm - EKG Sinus rhythms and dysrhythmias: sinus rhythm
--- NOTE | 2019-03-03 13:18 | Progress Note ---
Assessment and Plan Assessment: -ESRD on HD- MWF at [place] -NSTEMI -hematemesis s/p EGD -anemia Plan: -continue HD MWF with UF as tolerated -serially follow renal function and electrolytes, and blood counts -appreciate cardiology and GI input, consults reviewed -will provide ESAs as indicated -discussed ESRD diet recommendations with patient -avoid nephrotoxins, renally dose all medications -strict Is/Os Subjective Date of service: 03/03/19 Principal diagnosis: Gi bleed Interval history: resting in bed today Objective - Exam Narrative Exam: General appearance: no acute distress, frail appearing HEENT: PERRL, Normocephalic, Mucus Membranes Moist Neck: neck supple, trachea midline Cardiac: Reg Rate and Rhythm, S1/S2 Lungs: clear to auscultation Neuro: Grossly Intact Abdomen: non-tender, normal bowel sounds Skin: intact Musculoskeletal: No Pain Extremities: no edema bilaterally. RIJ CVC noted without purulence - Vital Signs Vital signs: Vital Signs - 12hr 03/03/19 03/03/19 03/03/19 05:04 06:00 07:54 Temperature 98.1 F 97.5 F L Pulse Rate 77 88 79 Respiratory 18 20 Rate Blood Pressure 99/63 138/79 O2 Sat by Pulse 100 99 Oximetry - Lab 03/03/19 05:00 03/03/19 05:00 Most recent lab results Calcium 7.7 mg/dL (8.4-10.2) L 03/03/19 05:00 Medications & Allergies - Medications Allergies/Adverse Reactions: Allergies guaifenesin [From Robitussin] Allergy (Verified 02/09/19 07:00) Hives Penicillins Allergy (Verified 02/09/19 07:00) Hives Home Medications: Home Medications Medication Instructions Recorded Confirmed Last Taken Type Acetaminophen [Acetaminophen TAB] 650 mg PO Q12HR PRN 02/09/19 02/28/19 Unknown History Polyethylene Glycol 3350 [Miralax 17 gm PO QDAY 02/09/19 02/28/19 Unknown History 3350] Albuterol Sulfate [Proair 2 puff IH Q6HR PRN 02/28/19 02/28/19 Unknown History Respiclick] Amlodipine Besylate [Norvasc] 10 mg PO DAILY 02/28/19 02/28/19 Unknown History Antifungal 1% CREAM 1 pack TP DAILY 02/28/19 02/28/19 Unknown History Calcium Acetate [Phoslo] 667 mg PO TID 02/28/19 02/28/19 Unknown History Ferrous Sulfate [Feosol] 325 mg PO BID 02/28/19 02/28/19 Unknown History Folic Acid [Folvite] 1 mg PO QDAY 02/28/19 02/28/19 Unknown History Glucagon (Human Recomb) [Glucagen] 1 mg IM Q15MIN PRN 02/28/19 02/28/19 Unknown History Insulin Lispro [Humalog Kwikpen 100 unit SQ PRN PRN 02/28/19 02/28/19 Unknown History U-100] Levothyroxine [Synthroid] 150 mcg PO QAM 02/28/19 02/28/19 Unknown History PARoxetine HCl [PARoxetine] 20 mg PO HS 02/28/19 02/28/19 Unknown History Sennosides Tab [Senokot] 1 tab PO HS PRN 02/28/19 02/28/19 Unknown History Thiamine [Vitamin B-1] 100 mg PO QDAY 02/28/19 02/28/19 Unknown History risperiDONE [Risperdal] 2 mg PO DAILY 02/28/19 02/28/19 Unknown History Active Medications: Generic Name Dose Route Start Last Admin Trade Name Freq PRN Reason Stop Dose Admin Acetaminophen 650 mg 02/28/19 04:19 Tylenol PO Q4H PRN Pain MILD(1-3)/Fever >100.5/SEYMOUR Acetaminophen/Hydrocodone Bitart 2 each 02/28/19 04:20 03/02/19 22:06 [place] 5/325 PO 2 each Q6H PRN Administration Pain, Moderate (4-6) Albumin Human 25 gm 03/02/19 12:30 03/02/19 12:58 Alburx 25% (Albumin) IV 25 gm MARCELA PRN Administration Hypotension Epoetin [place] 20,000 unit 03/01/19 16:00 03/02/19 12:58 Procrit IV 20,000 unit MARCELA PRN Administration hemodialysis Sodium Chloride 1,000 mls @ 50 mls/hr 03/01/19 09:00 03/01/19 08:38 Nacl 0.9% 1000 Ml IV 50 mls/hr DIRECT ROSELINE Administration Sodium Chloride 100 mls @ 999 mls/hr 03/02/19 12:30 Nacl 0.9% IV MARCELA PRN Hypotension Ondansetron HCl 4 mg 02/28/19 04:19 Zofran IV Q8H PRN Nausea And Vomiting Pantoprazole Sodium 40 mg 02/28/19 20:36 03/03/19 10:22 Protonix IV 40 mg BID ROSELINE Administration Senna 8.6 mg 02/28/19 10:00 03/03/19 10:23 Senokot PO Not Given Q12HR ROSELINE Sodium Chloride 10 ml 02/28/19 10:00 03/03/19 10:24 Sodium Chloride Flush Syringe 10 Ml IV 10 ml BID ROSELINE Administration
[2019-03-03 15:09] LABS: Hemoglobin 8.1 gm/dl (10.1-14.3); Mean Corpuscular HGB Conc 34 % (30-34); Mean Corpuscular Volume 85 fl (79-97); Red Blood Count 2.83 M/mm3 (3.65-5.03); Red Cell Distribution Width 16.2 % (13.2-15.2)
[2019-03-03 15:14] LABS: Platelet Count 97 K/mm3 (140-440)
[2019-03-04 07:50] LABS: Basophils # (Auto) 0.1 K/mm3 (0.0-0.1); Basophils % (Auto) 1.8 % (0.0-1.8); Hematocrit 24.3 % (30.3-42.9); Hemoglobin 8.1 gm/dl (10.1-14.3); Lymphocytes # (Auto) 0.7 K/mm3 (1.2-5.4); Lymphocytes % (Auto) 22.2 % (13.4-35.0); Mean Corpuscular HGB Conc 33 % (30-34); Mean Corpuscular Volume 84 fl (79-97); Monocytes # (Auto) 0.1 K/mm3 (0.0-0.8); Monocytes % (Auto) 4.6 % (0.0-7.3); Platelet Count 107 K/mm3 (140-440); Red Blood Count 2.88 M/mm3 (3.65-5.03); Red Cell Distribution Width 16.1 % (13.2-15.2)
--- NOTE | 2019-03-04 09:30 | Gastroenterology Progress Note ---
Assessment and Plan Ulcerative esophagitis with bleeding stigmata on this admission which was treated with endoclip, Hgb stable. From GI standpoint may DC home with close outpatient follow up with us. Should continue BID PPI for now. Regarding ascites, felt to be non-liver in origin, may get PRN paracentesis if worsens and causes difficulty breathing (currently not causing symptoms). Low salt diet - Patient Problems (1) GI bleed Current Visit: Yes Status: Acute (2) Abdominal pain Current Visit: No Status: Acute (3) Gastric ulcer Current Visit: No Status: Acute Subjective Date of service: 03/04/19 Principal diagnosis: Gi bleed Interval history: Pt reports tolerated diet well, no overt bleeding Objective - Constitutional Vitals: Temp Pulse Resp BP Pulse Ox 98.0 F 77 17 118/76 99 03/04/19 03:50 03/04/19 03:50 03/04/19 03:50 03/04/19 03:50 03/04/19 03:50 General appearance: no acute distress - Respiratory Respiratory: bilateral: CTA - Cardiovascular Rhythm: regular - Gastrointestinal General gastrointestinal: Present: other (distended +fluid wave) - Labs CBC & Chem 7: 03/04/19 07:11 03/04/19 07:11 Labs: Laboratory Results - last 24 hr 03/03/19 03/03/19 03/04/19 11:49 14:43 07:11 WBC 3.8 L 3.1 L RBC 2.83 L 2.88 L Hgb 8.1 L 8.1 L Hct 24.0 L 24.3 L MCV 85 84 MCH 29 28 MCHC 34 33 RDW 16.2 H 16.1 H Plt Count 97 L 107 L Lymph % (Auto) 22.2 [place] % (Auto) 4.6 Eos % (Auto) 0.0 Baso % (Auto) 1.8 Lymph # 0.7 L Gem # 0.1 Eos # 0.0 Baso # 0.1 Seg Neutrophils % 71.4 H Seg Neutrophils # 2.2 Sodium Potassium Chloride Carbon Dioxide Anion Gap BUN Creatinine Estimated GFR BUN/Creatinine Ratio Glucose POC Glucose 129 H Calcium 03/04/19 07:11 WBC RBC Hgb Hct MCV MCH MCHC RDW Plt Count Lymph % (Auto) Gem % (Auto) Eos % (Auto) Baso % (Auto) Lymph # Gem # Eos # Baso # Seg Neutrophils % Seg Neutrophils # Sodium 136 L Potassium 3.8 Chloride 98.7 Carbon Dioxide 30 Anion Gap 11 BUN 20 H Creatinine 3.1 H Estimated GFR 19 BUN/Creatinine Ratio 6 Glucose 111 H POC Glucose Calcium 8.0 L
--- NOTE | 2019-03-04 09:58 | Progress Note ---
Assessment and Plan Assessment and plan: Chest pain. Echocardiogram revealed EF 50-55%, impaired relaxation, ? infiltrative CMP (? amyloid). Cardiology to consider further w/u now that GI has signed off. Await cardiology recommendations. NSTEMI/Elevated troponin. ?Ischemic evaluation per cardiology. Hematemesis. Resolved. EGD revealed Esophagitis with adherent clot and underlying oozing of blood treated with clip x 1 with hemostasis. Also, Large ulcer along lesser curvature as seen on prior endoscopy with necrosis appearance. No high risk bleeding lesions. Edges biopsied to rule out malignancy. Continue IV PPI. Anemia. Stable. Follow H&H and transfuse for hemoglobin less than 7. Etiology is multifactorial. Likely from blood loss and chronic disease. Ascites. Likely related to underlying poor nutrition and ESRD. Continue hemodialysis ESRD. Nephrology following. Continue hemodialysis Diabetes mellitus type 2. Continue Accu-Cheks and sliding scale insulin Hypothyroidism. Check TSH. Continue Synthroid. History Interval history: Patient is a 55 y/o female with PMH of ESRD on HD, CHF, CVA, hypothyroidism, DM, anemia, schizophrenia, and ascites 2/2 most likely poor nutrition/ESRD (no evidence of liver disease on CT after review with IR last admission; HCV Ab negative) requiring previous paracentesis (02/14/19; 8300ml removed) who presented to ED with c/o CP, diffuse abd pain, and vomiting blood. Patient underwent EGD 03/01 for the hematemesis. Hospitalist Physical - Constitutional Vitals: Temp Pulse Resp BP Pulse Ox 97.5 F L 78 16 120/79 99 03/04/19 08:29 03/04/19 08:29 03/04/19 08:29 03/04/19 08:29 03/04/19 08:29 General appearance: Present: no acute distress - EENT Eyes: Present: PERRL, EOM intact ENT: hearing intact, clear oral mucosa, dentition normal - Neck Neck: Present: supple, normal ROM - Respiratory Respiratory effort: normal Respiratory: bilateral: CTA - Cardiovascular Rhythm: regular Heart Sounds: Present: S1 & S2. Absent: gallop, rub - Extremities Extremities: no ischemia, No edema, Full ROM - Abdominal General gastrointestinal: soft, non-tender, non-distended, normal bowel sounds - Integumentary Integumentary: Present: clear, warm, dry - Neurologic Neurologic: CNII-XII intact, moves all extremities Results - Labs CBC & Chem 7: 03/04/19 07:11 03/04/19 07:11 Labs: Laboratory Last Values WBC 3.1 K/mm3 (4.5-11.0) L 03/04/19 07:11 RBC 2.88 M/mm3 (3.65-5.03) L 03/04/19 07:11 Hgb 8.1 gm/dl (10.1-14.3) L 03/04/19 07:11 Hct 24.3 % (30.3-42.9) L 03/04/19 07:11 MCV 84 fl (79-97) 03/04/19 07:11 MCH 28 pg (28-32) 03/04/19 07:11 MCHC 33 % (30-34) 03/04/19 07:11 RDW 16.1 % (13.2-15.2) H 03/04/19 07:11 Plt Count 107 K/mm3 (140-440) L 03/04/19 07:11 Lymph % (Auto) 22.2 % (13.4-35.0) 03/04/19 07:11 [place] % (Auto) 4.6 % (0.0-7.3) 03/04/19 07:11 Eos % (Auto) 0.0 % (0.0-4.3) 03/04/19 07:11 Baso % (Auto) 1.8 % (0.0-1.8) 03/04/19 07:11 Lymph # 0.7 K/mm3 (1.2-5.4) L 03/04/19 07:11 [place] # 0.1 K/mm3 (0.0-0.8) 03/04/19 07:11 Eos # 0.0 K/mm3 (0.0-0.4) 03/04/19 07:11 Baso # 0.1 K/mm3 (0.0-0.1) 03/04/19 07:11 Seg Neutrophils % 71.4 % (40.0-70.0) H 03/04/19 07:11 Seg Neutrophils # 2.2 K/mm3 (1.8-7.7) 03/04/19 07:11 PT 14.4 Sec. (12.2-14.9) 02/28/19 00:55 INR 1.15 (0.87-1.13) H 02/28/19 00:55 APTT 39.4 Sec. (24.2-36.6) H 02/28/19 00:55 Sodium 136 mmol/L (137-145) L 03/04/19 07:11 Potassium 3.8 mmol/L (3.6-5.0) 03/04/19 07:11 Chloride 98.7 mmol/L (98-107) 03/04/19 07:11 Carbon Dioxide 30 mmol/L (22-30) 03/04/19 07:11 11 mmol/L 03/04/19 07:11 BUN 20 mg/dL (7-17) H 03/04/19 07:11 3.1 mg/dL (0.7-1.2) H 03/04/19 07:11 Estimated GFR 19 ml/min 03/04/19 07:11 6 % 03/04/19 07:11 Glucose 111 mg/dL (65-100) H 03/04/19 07:11 POC Glucose 129 (70-105) H 03/03/19 11:49 Calcium 8.0 mg/dL (8.4-10.2) L 03/04/19 07:11 0.40 mg/dL (0.1-1.2) 02/28/19 00:45 AST 13 units/L (5-40) 02/28/19 00:45 ALT < 5 units/L (7-56) L 02/28/19 00:45 47 units/L (35-129) 02/28/19 00:45 38 units/L (30-135) 02/28/19 12:09 CK-MB (CK-2) 3.3 ng/mL (0.0-4.0) 02/28/19 12:09 CK-MB (CK-2) Rel Index 8.6 (0-4) H 02/28/19 12:09 0.145 ng/mL (0.00-0.029) H* D 02/28/19 12:09 6.0 g/dL (6.3-8.2) L 02/28/19 00:45 2.5 g/dL (3.9-5) L 02/28/19 00:45 0.7 % 02/28/19 00:45 Triglycerides 94 mg/dL (2-149) 02/28/19 00:45 Cholesterol 86 mg/dL (50-199) 02/28/19 00:45 26 mg/dL (50-130) L 02/28/19 00:45 47 mg/dL (40-59) 02/28/19 00:45 1.82 % 02/28/19 00:45 11 units/L (13-60) L 02/28/19 00:45 Yellow (Yellow) 03/01/19 19:10 Cloudy (Clear) 03/01/19 19:10 5.0 (5.0-7.0) 03/01/19 19:10 Ur Specific [place] 1.014 (1.003-1.030) 03/01/19 19:10 >500 mg/dL (Negative) 03/01/19 19:10 >=500 mg/dL (Negative) 03/01/19 19:10 Neg mg/dL (Negative) 03/01/19 19:10 Mod (Negative) 03/01/19 19:10 Neg (Negative) 03/01/19 19:10 Neg (Negative) 03/01/19 19:10 < 2.0 mg/dL (<2.0) 03/01/19 19:10 Ur Leukocyte Esterase Lg (Negative) 03/01/19 19:10 > 182.0 /HPF (0.0-6.0) H 03/01/19 19:10 18.0 /HPF (0.0-6.0) 03/01/19 19:10 U Epithel Cells (Auto) 1.0 /HPF (0-13.0) 03/01/19 19:10 1+ /HPF (Negative) 03/01/19 19:10 3+ /HPF 03/01/19 19:10 Ur Transition Epith Cell 1 /HPF 03/01/19 19:10 Blood Type B POSITIVE 02/28/19 17:07 Antibody Screen Negative 02/28/19 17:07 Crossmatch See Detail 02/28/19 17:07 Active Medications - Current Medications Current Medications: Generic Name Dose Route Start Last Admin Trade Name Freq PRN Reason Stop Dose Admin Acetaminophen 650 mg 02/28/19 04:19 Tylenol PO Q4H PRN Pain MILD(1-3)/Fever >100.5/SEYMOUR Acetaminophen/Hydrocodone Bitart 2 each 02/28/19 04:20 03/02/19 22:06 [place] 5/325 PO 2 each Q6H PRN Administration Pain, Moderate (4-6) Albumin Human 25 gm 03/02/19 12:30 03/02/19 12:58 Alburx 25% (Albumin) IV 25 gm MARCELA PRN Administration Hypotension Epoetin [place] 20,000 unit 03/01/19 16:00 03/02/19 12:58 Procrit IV 20,000 unit MARCELA PRN Administration hemodialysis Sodium Chloride 1,000 mls @ 50 mls/hr 03/01/19 09:00 03/01/19 08:38 Nacl 0.9% 1000 Ml IV 50 mls/hr DIRECT ROSELINE Administration Sodium Chloride 100 mls @ 999 mls/hr 03/02/19 12:30 Nacl 0.9% IV MARCELA PRN Hypotension Ondansetron HCl 4 mg 02/28/19 04:19 Zofran IV Q8H PRN Nausea And Vomiting Pantoprazole Sodium 40 mg 02/28/19 20:36 03/03/19 22:16 Protonix IV 40 mg BID ROSELINE Administration Senna 8.6 mg 02/28/19 10:00 03/03/19 22:17 Senokot PO 8.6 mg Q12HR ROSELINE Administration Sodium Chloride 10 ml 02/28/19 10:00 03/03/19 22:17 Sodium Chloride Flush Syringe 10 Ml IV 10 ml BID ROSELINE Administration
[2019-03-04] MEDS: SENOKOT PO SCH ×2 (10:42→22:16)
[2019-03-04] MEDS: PROTONIX IV SCH ×2 (10:44→22:15)
[2019-03-04] MEDS: SODIUM CHLORIDE FLUSH SYRINGE 10 ML IV SCH ×2 (11:28→22:15)
--- NOTE | 2019-03-04 13:51 | Progress Note ---
Assessment and Plan Assessment: -ESRD on HD- MWF at [facility] -NSTEMI -hematemesis s/p EGD -anemia Plan: -continue HD MWF with UF as tolerated -appreciate cardiology and GI input, consults reviewed -will provide ESAs as indicated -discussed ESRD diet recommendations with patient -avoid nephrotoxins, renally dose all medications -strict Is/Os Subjective Date of service: 03/04/19 Principal diagnosis: Gi bleed Interval history: resting in bed today Objective - Exam Narrative Exam: General appearance: no acute distress, frail appearing HEENT: PERRL, Normocephalic, Mucus Membranes Moist Neck: neck supple, trachea midline Cardiac: Reg Rate and Rhythm, S1/S2 Lungs: clear to auscultation Neuro: Grossly Intact Abdomen: non-tender, normal bowel sounds Skin: intact Musculoskeletal: No Pain Extremities: no edema bilaterally. RIJ CVC noted without purulence - Vital Signs Vital signs: Vital Signs - 12hr 03/04/19 03/04/19 03/04/19 03:50 08:29 12:36 Temperature 98.0 F 97.5 F L 97.8 F Pulse Rate 77 78 83 Respiratory 17 16 16 Rate Blood Pressure 118/76 120/79 114/77 O2 Sat by Pulse 99 99 100 Oximetry - Lab 03/04/19 07:11 03/04/19 07:11 Most recent lab results Calcium 8.0 mg/dL (8.4-10.2) L 03/04/19 07:11 Medications & Allergies - Medications Allergies/Adverse Reactions: Allergies guaifenesin [From Robitussin] Allergy (Verified 02/09/19 07:00) Hives Penicillins Allergy (Verified 02/09/19 07:00) Hives Home Medications: Home Medications Medication Instructions Recorded Confirmed Last Taken Type Acetaminophen [Acetaminophen TAB] 650 mg PO Q12HR PRN 02/09/19 02/28/19 Unknown History Polyethylene Glycol 3350 [Miralax 17 gm PO QDAY 02/09/19 02/28/19 Unknown History 3350] Albuterol Sulfate [Proair 2 puff IH Q6HR PRN 02/28/19 02/28/19 Unknown History Respiclick] Amlodipine Besylate [Norvasc] 10 mg PO DAILY 02/28/19 02/28/19 Unknown History Antifungal 1% CREAM 1 pack TP DAILY 02/28/19 02/28/19 Unknown History Calcium Acetate [Phoslo] 667 mg PO TID 02/28/19 02/28/19 Unknown History Ferrous Sulfate [Feosol] 325 mg PO BID 02/28/19 02/28/19 Unknown History Folic Acid [Folvite] 1 mg PO QDAY 02/28/19 02/28/19 Unknown History Glucagon (Human Recomb) [Glucagen] 1 mg IM Q15MIN PRN 02/28/19 02/28/19 Unknown History Insulin Lispro [Humalog Kwikpen 100 unit SQ PRN PRN 02/28/19 02/28/19 Unknown H istory U-100] Levothyroxine [Synthroid] 150 mcg PO QAM 02/28/19 02/28/19 Unknown History PARoxetine HCl [PARoxetine] 20 mg PO HS 02/28/19 02/28/19 Unknown History Sennosides Tab [Senokot] 1 tab PO HS PRN 02/28/19 02/28/19 Unknown History Thiamine [Vitamin B-1] 100 mg PO QDAY 02/28/19 02/28/19 Unknown History risperiDONE [Risperdal] 2 mg PO DAILY 02/28/19 02/28/19 Unknown History Active Medications: Generic Name Dose Route Start Last Admin Trade Name Freq PRN Reason Stop Dose Admin Acetaminophen 650 mg 02/28/19 04:19 Tylenol PO Q4H PRN Pain MILD(1-3)/Fever >100.5/SEYMOUR Acetaminophen/Hydrocodone Bitart 2 each 02/28/19 04:20 03/02/19 22:06 [place] 5/325 PO 2 each Q6H PRN Administration Pain, Moderate (4-6) Albumin Human 25 gm 03/02/19 12:30 03/02/19 12:58 Alburx 25% (Albumin) IV 25 gm MARCELA PRN Administration Hypotension Epoetin Jean [place] 20,000 unit 03/01/19 16:00 03/02/19 12:58 Procrit IV 20,000 unit MARCELA PRN Administration hemodialysis Sodium Chloride 1,000 mls @ 50 mls/hr 03/01/19 09:00 03/01/19 08:38 Nacl 0.9% 1000 Ml IV 50 mls/hr DIRECT ROSELINE Administration Sodium Chloride 100 mls @ 999 mls/hr 03/02/19 12:30 Nacl 0.9% IV MARCELA PRN Hypotension Ondansetron HCl 4 mg 02/28/19 04:19 Zofran IV Q8H PRN Nausea And Vomiting Pantoprazole Sodium 40 mg 02/28/19 20:36 03/04/19 10:44 Protonix IV 40 mg BID ROSELINE Administration Senna 8.6 mg 02/28/19 10:00 03/04/19 10:42 Senokot PO Not Given Q12HR ROSELINE Sodium Chloride 10 ml 02/28/19 10:00 03/04/19 11:28 Sodium Chloride Flush Syringe 10 Ml IV 10 ml BID ROSELINE Administration
--- NOTE | 2019-03-04 13:57 | Progress Note ---
Assessment and Plan Cardiac status is stable. Will schedule for Lexiscan stress test in AM. NPO after midnight. Continue other cardiac management and defer to nephrology for management of volume status. The patient has been seen in conjunction with Dr. Silva, who agrees with the assessment and plan. - Patient Problems (1) Acute blood loss anemia Current Visit: Yes Status: Acute (2) GI bleed Current Visit: Yes Status: Acute (3) NSTEMI (non-ST elevated myocardial infarction) Current Visit: Yes Status: Acute (4) Diabetes Current Visit: Yes Status: Chronic (5) ESRD (end stage renal disease) on dialysis Current Visit: Yes Status: Chronic (6) HTN (hypertension) Current Visit: Yes Status: Chronic (7) Infiltrative cardiomyopathy Current Visit: Yes Status: Suspected (8) Chest pain Current Visit: Yes Status: Resolved (9) Vomiting Current Visit: No Status: Acute (10) Ascites Current Visit: Yes Status: Chronic Subjective Date of service: 03/04/19 Principal diagnosis: Gi bleed Interval history: The patient is lying in bed in [facility]. She asked repeatedly if she can go home Tuesday, despite numerous explanations about dialysis and stress testing. She is not currently on telemetry monitoring. Objective Last Vital Signs Temp 97.8 F 03/04/19 12:36 Pulse 83 03/04/19 12:36 Resp 16 03/04/19 12:36 BP 114/77 03/04/19 12:36 Pulse Ox 100 03/04/19 12:36 - Physical Examination HEENT: Positive: PERRL, Normocephaly, Mucus Membranes Moist Neck: Positive: neck supple, trachea midline Cardiac: Positive: Reg Rate and Rhythm Lungs: Positive: Normal Exam Neuro: Positive: Grossly Intact, Weakness Abdomen: Positive: Firm, Distended. Negative: Tender /Rectal: Other (deferred) Skin: Negative: Rash Musculoskeletal: No Pain Extremities: Present: +2 Edema (BLE). Absent: edema - Labs and Meds CBC 03/03/19 03/04/19 Range/Units 14:43 07:11 WBC 3.8 L 3.1 L (4.5-11.0) K/mm3 RBC 2.83 L 2.88 L (3.65-5.03) M/mm3 Hgb 8.1 L 8.1 L (10.1-14.3) gm/dl Hct 24.0 L 24.3 L (30.3-42.9) % Plt Count 97 L 107 L (140-440) K/mm3 Lymph # 0.7 L (1.2-5.4) K/mm3 [place] # 0.1 (0.0-0.8) K/mm3 Eos # 0.0 (0.0-0.4) K/mm3 Baso # 0.1 (0.0-0.1) K/mm3 Comprehensive Metabolic Panel 03/04/19 Range/Units 07:11 Sodium 136 L (137-145) mmol/L Potassium 3.8 (3.6-5.0) mmol/L Chloride 98.7 (98-107) mmol/L Carbon Dioxide 30 (22-30) mmol/L BUN 20 H (7-17) mg/dL Creatinine 3.1 H (0.7-1.2) mg/dL Glucose 111 H (65-100) mg/dL Calcium 8.0 L (8.4-10.2) mg/dL - Imaging and Cardiology EKG: report reviewed, image reviewed Echo: report reviewed - EKG Sinus rhythms and dysrhythmias: sinus rhythm
[2019-03-05] MEDS ORDERED: LEXISCAN IV ONE ×2 (07:20→07:26)
[2019-03-05] MEDS: SENOKOT PO SCH ×2 (09:33→22:35)
[2019-03-05] MEDS: PROTONIX IV SCH (09:33)
[2019-03-05] MEDS: SODIUM CHLORIDE FLUSH SYRINGE 10 ML IV SCH ×2 (09:33→22:16)
--- NOTE | 2019-03-05 09:54 | Gastroenterology Progress Note ---
<AR KEARNEY - Last Filed: 03/05/19 09:56> Assessment and Plan 1.recurrent UGI bleeding -H/H 8.24.3-stable -continue to monitor H/H and transfuse as needed to keep hgb >7 -s/p empiric embolization of L gastric artery 02/10 -last EGD 02/13/19 revealed large ulcer (4cm) on lesser curve; no visible vessel, mild gastritis, and small hiatal hernia -bx result negative for H pylori or malignancy -s/p repeat EGD 03/01/19 that showed ulcerative esophagitis with adherent clot with underlying oozing of blood (clip x 1 with hemostasis), and large ulcer along lesser curvature as seen on prior endoscopy with necrosis appearance but no high risk bleeding lesions (bx obtained with results pending-f/u in clinic) -clinically, patient is stable with no active signs of bleeding and H/H stable. -continue PPI BID -continue to trend labs and supportive care -patient okay to be d/c per GI standpoint on PPI BID with f/u in clinic ~2 weeks -will sign off, please call if needed 2.ascites/abdominal pain -etiology- non-liver origin (likely related to underlying poor nutrition and ESRD; OK to continue aggressive HD, and remove fluid) -no evidence of cirrhosis per prior evaluation and HCV negative -recommend LVP PRN is symptomatic- s/p paracentesis 02/14/19 -low sodium diet 3.ESRD on HD Subjective Date of service: 03/05/19 Principal diagnosis: Gi bleed Interval history: Patient resting in bed this am w/o acute distress. No active signs of bleeding overnight or this am per nursing. Tolerating diet. Objective - Constitutional Vitals: Temp Pulse Resp BP Pulse Ox 97.5 F L 85 18 127/85 97 03/05/19 07:39 03/05/19 03:37 03/05/19 07:39 03/05/19 07:39 03/05/19 03:37 General appearance: no acute distress - Respiratory Respiratory effort: normal - Cardiovascular Rhythm: regular - Gastrointestinal General gastrointestinal: Present: soft, non-tender, distended (ascites), normal bowel sounds - Labs CBC & Chem 7: 03/04/19 07:11 03/05/19 07:34 Labs: Laboratory Results - last 24 hr 03/05/19 07:34 Sodium 134 L Potassium 4.0 Chloride 97.4 L Carbon Dioxide 28 Anion Gap 13 BUN 20 H Creatinine 3.3 H Estimated GFR 17 BUN/Creatinine Ratio 6 Glucose 108 H Calcium 8.0 L <MARJORIE MAY - Last Filed: 03/05/19 21:49> Assessment and Plan patient seen and examined, agree with the above, no overt bleeding and hgb stable, therefore ok for DC with OPD f/u from GI standpoint - Patient Problems (1) GI bleed Current Visit: Yes Status: Acute (2) Abdominal pain Current Visit: No Status: Acute (3) Gastric ulcer Current Visit: Yes Status: Acute Objective - Constitutional Vitals: Temp Pulse Resp BP Pulse Ox 97.5 F L 79 18 139/84 97 03/05/19 16:23 03/05/19 16:23 03/05/19 16:23 03/05/19 16:23 03/05/19 03:37 - Labs CBC & Chem 7: 03/04/19 07:11 03/05/19 07:34 Labs: Laboratory Results - last 24 hr 03/05/19 07:34 Sodium 134 L Potassium 4.0 Chloride 97.4 L Carbon Dioxide 28 Anion Gap 13 BUN 20 H Creatinine 3.3 H Estimated GFR 17 BUN/Creatinine Ratio 6 Glucose 108 H Calcium 8.0 L
--- NOTE | 2019-03-05 11:08 | Progress Note ---
Assessment and Plan Currently stable cardiac status, pt denies any current complaints. Pt is noted to have elevated troponins which appear to be c/w NSTEMI type II, ECG with no acute ischemic changes. Can consider stress test once medically stabilized as OP. Echo reviewed - EF 50-55%, impaired relaxation, ? infiltrative CMP. High suspicion for amyloid CMP. Pt will ultimately require cardiac biopsy for definitive diagnosis which can be arranged as OP. Additionally, renal w/u may also be indicated - will defer to nephrology. The patient has been seen in conjunction with Dr. Rodriguez who agrees with the assessment and plan of care. - Patient Problems (1) Gastric ulcer Current Visit: Yes Status: Acute (2) GI bleed Current Visit: Yes Status: Acute (3) Acute blood loss anemia Current Visit: Yes Status: Acute (4) ESRD (end stage renal disease) on dialysis Current Visit: Yes Status: Chronic (5) Chest pain Current Visit: Yes Status: Resolved (6) HTN (hypertension) Current Visit: Yes Status: Chronic (7) Diabetes Current Visit: Yes Status: Chronic (8) History of CVA (cerebrovascular accident) Current Visit: Yes Status: Chronic (9) Ascites Current Visit: Yes Status: Chronic (10) NSTEMI (non-ST elevated myocardial infarction) Current Visit: Yes Status: Acute (11) Infiltrative cardiomyopathy Current Visit: Yes Status: Suspected Subjective Date of service: 03/05/19 Principal diagnosis: Gi bleed Interval history: pt resting in bed, no current complaints. Objective Last Vital Signs Temp 97.5 F L 03/05/19 07:39 Pulse 85 03/05/19 03:37 Resp 18 03/05/19 07:39 BP 127/85 03/05/19 07:39 Pulse Ox 97 03/05/19 03:37 - Physical Examination General: No Apparent Distress HEENT: Positive: PERRL, Normocephaly, Mucus Membranes Moist Neck: Positive: neck supple, trachea midline Cardiac: Positive: Reg Rate and Rhythm, S1/S2 Lungs: Positive: Decreased Breath Sounds Neuro: Positive: Grossly Intact, Weakness Abdomen: Positive: Firm, Distended. Negative: Tender /Rectal: Other (deferred) Skin: Negative: Rash Musculoskeletal: No Pain Extremities: Absent: edema - Labs and Meds Comprehensive Metabolic Panel 03/05/19 Range/Units 07:34 Sodium 134 L (137-145) mmol/L Potassium 4.0 (3.6-5.0) mmol/L Chloride 97.4 L (98-107) mmol/L Carbon Dioxide 28 (22-30) mmol/L BUN 20 H (7-17) mg/dL Creatinine 3.3 H (0.7-1.2) mg/dL Glucose 108 H (65-100) mg/dL Calcium 8.0 L (8.4-10.2) mg/dL - Imaging and Cardiology EKG: report reviewed, image reviewed Echo: report reviewed - EKG Sinus rhythms and dysrhythmias: sinus rhythm
--- NOTE | 2019-03-05 11:12 | Progress Note ---
Assessment and Plan - Patient Problems (1) Diabetes Current Visit: Yes Status: Chronic Plan to address problem: Diabetes mellitus type 2 with complications monitor fingersticks (2) ESRD (end stage renal disease) on dialysis Current Visit: Yes Status: Chronic Plan to address problem: End-stage renal disease on dialysis We'll initiate dialysis Continue Tuesday ultrafiltration as tolerated (3) HTN (hypertension) Current Visit: Yes Status: Chronic Plan to address problem: Hypertension controlled continue medications (4) Acute blood loss anemia Current Visit: Yes Status: Acute Plan to address problem: Moderate anemia hemoglobin 8.1g/dl , Etiology of anemia secondary to chronic kidney disease and GI bleed Monitor CBC Subjective Principal diagnosis: Gi bleed Interval history: 58-year-old lady with medical history significant for end-stage renal disease on hemodialysis Tuesday hematemesis status was EGD admitted with GI bleed Patient was seen today distended abdomen Significant edema Oxygen supplementation Objective - Vital Signs Vital signs: Vital Signs - 12hr 03/05/19 03/05/19 03/05/19 03:20 03:37 07:39 Temperature 97.3 F L 97.5 F L Pulse Rate 85 Respiratory 18 18 18 Rate Blood Pressure 114/72 127/85 O2 Sat by Pulse 97 Oximetry - General Appearance General appearance: cachectic, chronically ill EENT: ATNC, PERRL Neck: no JVD Respiratory: Present: Clear to Ascultation Cardiology: regular, S1S2 Gastrointestinal: normal, normoactive bowel sounds, distended Neurologic: alert and oriented x3, CN 3-12 intact Musculoskeletal: joint swelling, other (grade 2-3 edema) Psychiatric: depressed - Lab 03/04/19 07:11 03/05/19 07:34 Most recent lab results Calcium 8.0 mg/dL (8.4-10.2) L 03/05/19 07:34 - Imaging Chest x-ray: image reviewed (I reviewed chest x-ray patchy opacities) Medications & Allergies - Medications Allergies/Adverse Reactions: Allergies guaifenesin [From Robitussin] Allergy (Verified 02/09/19 07:00) Hives Penicillins Allergy (Verified 02/09/19 07:00) Hives Home Medications: Home Medications Medication Instructions Recorded Confirmed Last Taken Type Acetaminophen [Acetaminophen TAB] 650 mg PO Q12HR PRN 02/09/19 02/28/19 Unknown History Polyethylene Glycol 3350 [Miralax 17 gm PO QDAY 02/09/19 02/28/19 Unknown History 3350] Albuterol Sulfate [Proair 2 puff IH Q6HR PRN 02/28/19 02/28/19 Unknown History Respiclick] Amlodipine Besylate [Norvasc] 10 mg PO DAILY 02/28/19 02/28/19 Unknown History Antifungal 1% CREAM 1 pack TP DAILY 02/28/19 02/28/19 Unknown History Calcium Acetate [Phoslo] 667 mg PO TID 02/28/19 02/28/19 Unknown History Ferrous Sulfate [Feosol] 325 mg PO BID 02/28/19 02/28/19 Unknown History Folic Acid [Folvite] 1 mg PO QDAY 02/28/19 02/28/19 Unknown History Glucagon (Human Recomb) [Glucagen] 1 mg IM Q15MIN PRN 02/28/19 02/28/19 Unknown History Insulin Lispro [Humalog Kwikpen 100 unit SQ PRN PRN 02/28/19 02/28/19 Unknown History U-100] Levothyroxine [Synthroid] 150 mcg PO QAM 02/28/19 02/28/19 Unknown History PARoxetine HCl [PARoxetine] 20 mg PO HS 02/28/19 02/28/19 Unknown History Sennosides Tab [Senokot] 1 tab PO HS PRN 02/28/19 02/28/19 Unknown History Thiamine [Vitamin B-1] 100 mg PO QDAY 02/28/19 02/28/19 Unknown History risperiDONE [Risperdal] 2 mg PO DAILY 02/28/19 02/28/19 Unknown History Active Medications: Generic Name Dose Route Start Last Admin Trade Name Freq PRN Reason Stop Dose Admin Acetaminophen 650 mg 02/28/19 04:19 Tylenol PO Q4H PRN Pain MILD(1-3)/Fever >100.5/SEYMOUR Acetaminophen/Hydrocodone Bitart 2 each 02/28/19 04:20 03/02/19 22:06 [place] 5/325 PO 2 each Q6H PRN Administration Pain, Moderate (4-6) Albumin Human 25 gm 03/02/19 12:30 03/02/19 12:58 Alburx 25% (Albumin) IV 25 gm MARCELA PRN Administration Hypotension Epoetin [place] 20,000 unit 03/01/19 16:00 03/02/19 12:58 Procrit IV 20,000 unit MARCELA PRN Administration hemodialysis Sodium Chloride 1,000 mls @ 50 mls/hr 03/01/19 09:00 03/01/19 08:38 Nacl 0.9% 1000 Ml IV 50 mls/hr DIRECT ROSELINE Administration Sodium Chloride 100 mls @ 999 mls/hr 03/02/19 12:30 Nacl 0.9% IV MARCELA PRN Hypotension Ondansetron HCl 4 mg 02/28/19 04:19 Zofran IV Q8H PRN Nausea And Vomiting Pantoprazole Sodium 40 mg 03/05/19 22:00 Protonix PO BID ROSELINE Senna 8.6 mg 02/28/19 10:00 03/05/19 09:33 Senokot PO Not Given Q12HR ROSELINE Sodium Chloride 10 ml 02/28/19 10:00 03/05/19 09:33 Sodium Chloride Flush Syringe 10 Ml IV 10 ml BID ROSELINE Administration
--- NOTE | 2019-03-05 11:42 | Progress Note ---
Assessment and Plan Assessment and plan: Chest pain. Echocardiogram revealed EF 50-55%, impaired relaxation, ? infiltrative CMP (? amyloid). Cardiology to consider further w/u now that GI has signed off. Await cardiology recommendations. NSTEMI/Elevated troponin. ?Ischemic evaluation per cardiology. Hematemesis. Resolved. EGD revealed Esophagitis with adherent clot and underlying oozing of blood treated with clip x 1 with hemostasis. Also, Large ulcer along lesser curvature as seen on prior endoscopy with necrosis appearance. No high risk bleeding lesions. Edges biopsied to rule out malignancy. Continue IV PPI. Anemia. Stable. Follow H&H and transfuse for hemoglobin less than 7. Etiology is multifactorial. Likely from blood loss and chronic disease. Ascites. Likely related to underlying poor nutrition and ESRD. Continue hemodialysis ESRD. Nephrology following. Continue hemodialysis Diabetes mellitus type 2. Continue Accu-Cheks and sliding scale insulin Hypothyroidism. Continue Synthroid. History Interval history: Patient is a 55 y/o female with PMH of ESRD on HD, CHF, CVA, hypothyroidism, DM, anemia, schizophrenia, and ascites 2/2 most likely poor nutrition/ESRD (no evidence of liver disease on CT after review with IR last admission; HCV Ab negative) requiring previous paracentesis (02/14/19; 8300ml removed) who presented to ED with c/o CP, diffuse abd pain, and vomiting blood. Patient underwent EGD 03/01 for the hematemesis. Hospitalist Physical - Constitutional Vitals: Temp Pulse Resp BP Pulse Ox 97.5 F L 85 18 127/85 97 03/05/19 07:39 03/05/19 03:37 03/05/19 07:39 03/05/19 07:39 03/05/19 03:37 General appearance: Present: no acute distress - EENT Eyes: Present: PERRL, EOM intact ENT: hearing intact, clear oral mucosa, dentition normal - Neck Neck: Present: supple, normal ROM - Respiratory Respiratory effort: normal Respiratory: bilateral: CTA - Cardiovascular Rhythm: regular Heart Sounds: Present: S1 & S2. Absent: gallop, rub - Extremities Extremities: no ischemia, No edema, Full ROM - Abdominal General gastrointestinal: soft, non-tender, non-distended, normal bowel sounds - Integumentary Integumentary: Present: clear, warm, dry - Neurologic Neurologic: CNII-XII intact, moves all extremities Results - Labs CBC & Chem 7: 03/04/19 07:11 03/05/19 07:34 Labs: Laboratory Last Values WBC 3.1 K/mm3 (4.5-11.0) L 03/04/19 07:11 RBC 2.88 M/mm3 (3.65-5.03) L 03/04/19 07:11 Hgb 8.1 gm/dl (10.1-14.3) L 03/04/19 07:11 Hct 24.3 % (30.3-42.9) L 03/04/19 07:11 MCV 84 fl (79-97) 03/04/19 07:11 MCH 28 pg (28-32) 03/04/19 07:11 MCHC 33 % (30-34) 03/04/19 07:11 RDW 16.1 % (13.2-15.2) H 03/04/19 07:11 Plt Count 107 K/mm3 (140-440) L 03/04/19 07:11 Lymph % (Auto) 22.2 % (13.4-35.0) 03/04/19 07:11 [place] % (Auto) 4.6 % (0.0-7.3) 03/04/19 07:11 Eos % (Auto) 0.0 % (0.0-4.3) 03/04/19 07:11 Baso % (Auto) 1.8 % (0.0-1.8) 03/04/19 07:11 Lymph # 0.7 K/mm3 (1.2-5.4) L 03/04/19 07:11 [place] # 0.1 K/mm3 (0.0-0.8) 03/04/19 07:11 Eos # 0.0 K/mm3 (0.0-0.4) 03/04/19 07:11 Baso # 0.1 K/mm3 (0.0-0.1) 03/04/19 07:11 Seg Neutrophils % 71.4 % (40.0-70.0) H 03/04/19 07:11 Seg Neutrophils # 2.2 K/mm3 (1.8-7.7) 03/04/19 07:11 PT 14.4 Sec. (12.2-14.9) 02/28/19 00:55 INR 1.15 (0.87-1.13) H 02/28/19 00:55 APTT 39.4 Sec. (24.2-36.6) H 02/28/19 00:55 Sodium 134 mmol/L (137-145) L 03/05/19 07:34 Potassium 4.0 mmol/L (3.6-5.0) 03/05/19 07:34 Chloride 97.4 mmol/L (98-107) L 03/05/19 07:34 Carbon Dioxide 28 mmol/L (22-30) 03/05/19 07:34 13 mmol/L 03/05/19 07:34 BUN 20 mg/dL (7-17) H 03/05/19 07:34 3.3 mg/dL (0.7-1.2) H 03/05/19 07:34 Estimated GFR 17 ml/min 03/05/19 07:34 6 % 03/05/19 07:34 Glucose 108 mg/dL (65-100) H 03/05/19 07:34 POC Glucose 129 (70-105) H 03/03/19 11:49 Calcium 8.0 mg/dL (8.4-10.2) L 03/05/19 07:34 0.40 mg/dL (0.1-1.2) 02/28/19 00:45 AST 13 units/L (5-40) 02/28/19 00:45 ALT < 5 units/L (7-56) L 02/28/19 00:45 47 units/L (35-129) 02/28/19 00:45 38 units/L (30-135) 02/28/19 12:09 CK-MB (CK-2) 3.3 ng/mL (0.0-4.0) 02/28/19 12:09 CK-MB (CK-2) Rel Index 8.6 (0-4) H 02/28/19 12:09 0.145 ng/mL (0.00-0.029) H* D 02/28/19 12:09 6.0 g/dL (6.3-8.2) L 02/28/19 00:45 2.5 g/dL (3.9-5) L 02/28/19 00:45 0.7 % 02/28/19 00:45 Triglycerides 94 mg/dL (2-149) 02/28/19 00:45 Cholesterol 86 mg/dL (50-199) 02/28/19 00:45 26 mg/dL (50-130) L 02/28/19 00:45 47 mg/dL (40-59) 02/28/19 00:45 1.82 % 02/28/19 00:45 11 units/L (13-60) L 02/28/19 00:45 Yellow (Yellow) 03/01/19 19:10 Cloudy (Clear) 03/01/19 19:10 5.0 (5.0-7.0) 03/01/19 19:10 Ur Specific [place] 1.014 (1.003-1.030) 03/01/19 19:10 >500 mg/dL (Negative) 03/01/19 19:10 >=500 mg/dL (Negative) 03/01/19 19:10 Neg mg/dL (Negative) 03/01/19 19:10 Mod (Negative) 03/01/19 19:10 Neg (Negative) 03/01/19 19:10 Neg (Negative) 03/01/19 19:10 < 2.0 mg/dL (<2.0) 03/01/19 19:10 Ur Leukocyte Esterase Lg (Negative) 03/01/19 19:10 > 182.0 /HPF (0.0-6.0) H 03/01/19 19:10 18.0 /HPF (0.0-6.0) 03/01/19 19:10 U Epithel Cells (Auto) 1.0 /HPF (0-13.0) 03/01/19 19:10 1+ /HPF (Negative) 03/01/19 19:10 3+ /HPF 03/01/19 19:10 Ur Transition Epith Cell 1 /HPF 03/01/19 19:10 Blood Type B POSITIVE 02/28/19 17:07 Antibody Screen Negative 02/28/19 17:07 Crossmatch See Detail 02/28/19 17:07 Active Medications - Current Medications Current Medications: Generic Name Dose Route Start Last Admin Trade Name Freq PRN Reason Stop Dose Admin Acetaminophen 650 mg 02/28/19 04:19 Tylenol PO Q4H PRN Pain MILD(1-3)/Fever >100.5/SEYMOUR Acetaminophen/Hydrocodone Bitart 2 each 02/28/19 04:20 03/02/19 22:06 [place] 5/325 PO 2 each Q6H PRN Administration Pain, Moderate (4-6) Albumin Human 25 gm 03/02/19 12:30 03/02/19 12:58 Alburx 25% (Albumin) IV 25 gm MARCELA PRN Administration Hypotension Epoetin [place] 20,000 unit 03/01/19 16:00 03/02/19 12:58 Procrit IV 20,000 unit MARCELA PRN Administration hemodialysis Sodium Chloride 1,000 mls @ 50 mls/hr 03/01/19 09:00 03/01/19 08:38 Nacl 0.9% 1000 Ml IV 50 mls/hr DIRECT ROSELINE Administration Sodium Chloride 100 mls @ 999 mls/hr 03/02/19 12:30 Nacl 0.9% IV MARCELA PRN Hypotension Ondansetron HCl 4 mg 02/28/19 04:19 Zofran IV Q8H PRN Nausea And Vomiting Pantoprazole Sodium 40 mg 03/05/19 22:00 Protonix PO BID ROSELINE Senna 8.6 mg 02/28/19 10:00 03/05/19 09:33 Senokot PO Not Given Q12HR ROSELINE Sodium Chloride 10 ml 02/28/19 10:00 03/05/19 09:33 Sodium Chloride Flush Syringe 10 Ml IV 10 ml BID ROSELINE Administration
[2019-03-05] MEDS: PROTONIX PO SCH (22:16)
[2019-03-06 06:15] LABS: Basophils % (Auto) 0.8 % (0.0-1.8); Hematocrit 23.4 % (30.3-42.9); Hemoglobin 7.7 gm/dl (10.1-14.3); Lymphocytes # (Auto) 0.9 K/mm3 (1.2-5.4); Lymphocytes % (Auto) 29.9 % (13.4-35.0); Mean Corpuscular HGB Conc 33 % (30-34); Mean Corpuscular Volume 85 fl (79-97); Monocytes # (Auto) 0.2 K/mm3 (0.0-0.8); Platelet Count 103 K/mm3 (140-440); Red Blood Count 2.77 M/mm3 (3.65-5.03); Red Cell Distribution Width 15.9 % (13.2-15.2)
[2019-03-06 06:29] LABS: Calcium 7.8 mg/dL (8.4-10.2)
[2019-03-06] MEDS: SENOKOT PO SCH (10:03)
[2019-03-06] MEDS: PROTONIX PO SCH (10:04)
--- NOTE | 2019-03-06 11:00 | Progress Note ---
Assessment and Plan Currently stable cardiac status, pt denies any current complaints. Pt is noted to have elevated troponins which appear to be c/w NSTEMI type II, ECG with no acute ischemic changes. Can consider stress test once medically stabilized as OP. Echo reviewed - EF 50-55%, impaired relaxation, ? infiltrative CMP. High suspicion for amyloid CMP. Pt will ultimately require cardiac biopsy for definitive diagnosis which can be arranged as OP. Additionally, renal w/u may also be indicated - will defer to nephrology. Nothing further to add from cardiac perspective at this time. Will follow on as needed basis. Recommend follow up in our office with Dr. Rosales within 1-2 weeks of hospital discharge ([phone]). The patient has been seen in conjunction with Dr. Rodriguez who agrees with the assessment and plan of care. - Patient Problems (1) Gastric ulcer Current Visit: Yes Status: Acute (2) GI bleed Current Visit: Yes Status: Acute (3) Acute blood loss anemia Current Visit: Yes Status: Acute (4) ESRD (end stage renal disease) on dialysis Current Visit: Yes Status: Chronic (5) Chest pain Current Visit: Yes Status: Resolved (6) HTN (hypertension) Current Visit: Yes Status: Chronic (7) Diabetes Current Visit: Yes Status: Chronic (8) History of CVA (cerebrovascular accident) Current Visit: Yes Status: Chronic (9) Ascites Current Visit: Yes Status: Chronic (10) NSTEMI (non-ST elevated myocardial infarction) Current Visit: Yes Status: Acute (11) Infiltrative cardiomyopathy Current Visit: Yes Status: Suspected Subjective Date of service: 03/06/19 Principal diagnosis: Gi bleed Interval history: pt resting in bed, no current complaints. Objective Last Vital Signs Temp 98.0 F 03/06/19 07:57 Pulse 84 03/06/19 07:57 Resp 18 03/06/19 07:57 BP 143/90 03/06/19 07:57 Pulse Ox 100 03/06/19 07:57 - Physical Examination General: No Apparent Distress HEENT: Positive: PERRL, Normocephaly, Mucus Membranes Moist Neck: Positive: neck supple, trachea midline Cardiac: Positive: Reg Rate and Rhythm, S1/S2 Lungs: Positive: Decreased Breath Sounds Neuro: Positive: Grossly Intact, Weakness Abdomen: Positive: Firm, Distended. Negative: Tender /Rectal: Other (deferred) Skin: Negative: Rash Musculoskeletal: No Pain Extremities: Absent: edema - Labs and Meds CBC 03/06/19 Range/Units 04:53 WBC 3.2 L (4.5-11.0) K/mm3 RBC 2.77 L (3.65-5.03) M/mm3 Hgb 7.7 L (10.1-14.3) gm/dl Hct 23.4 L (30.3-42.9) % Plt Count 103 L (140-440) K/mm3 Lymph # 0.9 L (1.2-5.4) K/mm3 [place] # 0.2 (0.0-0.8) K/mm3 Eos # 0.0 (0.0-0.4) K/mm3 Baso # 0.0 (0.0-0.1) K/mm3 Comprehensive Metabolic Panel 03/06/19 Range/Units 04:53 Sodium 135 L (137-145) mmol/L Potassium 3.7 (3.6-5.0) mmol/L Chloride 98.4 (98-107) mmol/L Carbon Dioxide 29 (22-30) mmol/L BUN 17 (7-17) mg/dL Creatinine 2.9 H (0.7-1.2) mg/dL Glucose 110 H (65-100) mg/dL Calcium 7.8 L (8.4-10.2) mg/dL - Imaging and Cardiology EKG: report reviewed, image reviewed Echo: report reviewed - EKG Sinus rhythms and dysrhythmias: sinus rhythm
--- NOTE | 2019-03-06 13:19 | Discharge Summary ---
Providers - Providers Date of Admission: 02/28/19 05:34 Date of discharge: 03/06/19 Attending physician: CLARICE VILLA 02/28/19 05:42 Consult to Physician [CONS] Routine Comment: Consulting Provider: LIZZY SHAFFER Physician Instructions: Reason For Exam: gib 02/28/19 05:45 Consult to Physician [CONS] Routine Comment: Consulting Provider: JAMIE KAY Physician Instructions: Reason For Exam: hd 02/28/19 10:32 Consult to Physician [CONS] Routine Comment: Consulting Provider: LAM ABBASI Physician Instructions: Reason For Exam: cardiac clearance 03/06/19 10:18 Consult to Case Management [CONS] Routine Services Needed at Discharge: Other Notified:: case finisher Comment:: dc planning Additional Physician Instructions: Primary care physician: AMY QUIROZ MD Hospitalization Condition: Fair Disposition: DC/[place]-03 SNF W [facility] CERT Core Measure Documentation - Palliative Care Palliative Care/ Comfort Measures: Not Applicable - Core Measures Any of the following diagnoses?: none Exam - Constitutional Vitals: Temp Pulse Resp BP Pulse Ox 98.0 F 84 18 143/90 100 03/06/19 07:57 03/06/19 07:57 03/06/19 07:57 03/06/19 07:57 03/06/19 07:57 Plan Activity: advance as tolerated Diet: low fat, low cholesterol, low salt Plan of Treatment: 1.Follow up with Physician at SNF in 2-3 days. 2.Continue hemodialysis as scheduled 3.Follow up with Dr. Randall Rosales, Cardiology in 1-2 weeks 4.Follow up with Dr. Patricia Thomas, GI in 2 weeks Prescriptions: Pantoprazole [Protonix TAB] 40 mg PO BID 60 Days tablet
--- NOTE | 2019-03-06 14:58 | Progress Note ---
Assessment and Plan - Patient Problems (1) Diabetes Current Visit: Yes Status: Chronic Plan to address problem: Diabetes mellitus type 2 with complications monitor fingersticks (2) ESRD (end stage renal disease) on dialysis Current Visit: Yes Status: Chronic Plan to address problem: End-stage renal disease on dialysis We'll initiate dialysis Continue Tuesday ultrafiltration as tolerated (3) HTN (hypertension) Current Visit: Yes Status: Chronic Plan to address problem: Hypertension controlled continue medications (4) Acute blood loss anemia Current Visit: Yes Status: Acute Plan to address problem: Moderate anemia hemoglobin 8.1g/dl , Etiology of anemia secondary to chronic kidney disease and GI bleed Monitor CBC Subjective Principal diagnosis: Gi bleed Interval history: 58-year-old lady with medical history significant for end-stage renal disease on hemodialysis Tuesday hematemesis status was EGD admitted with GI bleed Patient was seen today distended abdomen Significant edema Oxygen supplementation She is anxious to be discharged . Objective - Vital Signs Vital signs: Vital Signs - 12hr 03/06/19 03/06/19 03:35 07:57 Temperature 97.5 F L 98.0 F Pulse Rate 77 84 Respiratory 18 18 Rate Blood Pressure 112/75 143/90 O2 Sat by Pulse 100 100 Oximetry - General Appearance General appearance: well-developed, well-nourished, appears stated age EENT: ATNC, PERRL, mucous membranes moist Neck: no JVD Respiratory: Present: Clear to Ascultation Cardiology: regular, S1S2 Gastrointestinal: normal, distended, obese, other (ascites. ) Integumentary: no rash Neurologic: alert and oriented x3, CN 3-12 intact Psychiatric: mood/affect appropriate - Lab 03/06/19 04:53 03/06/19 04:53 Most recent lab results Calcium 7.8 mg/dL (8.4-10.2) L 03/06/19 04:53 - Imaging CT scan - abdomen: other (I reviewed CT abdomen with ascites and pleural effusions. ) Medications & Allergies - Medications Allergies/Adverse Reactions: Allergies guaifenesin [From Robitussin] Allergy (Verified 02/09/19 07:00) Hives Penicillins Allergy (Verified 02/09/19 07:00) Hives Home Medications: Home Medications Medication Instructions Recorded Confirmed Last Taken Type Acetaminophen [Acetaminophen TAB] 650 mg PO Q12HR PRN 02/09/19 02/28/19 Unknown History Polyethylene Glycol 3350 [Miralax 17 gm PO QDAY 02/09/19 02/28/19 Unknown History 3350] Albuterol Sulfate [Proair 2 puff IH Q6HR PRN 02/28/19 02/28/19 Unknown History Respiclick] Amlodipine Besylate [Norvasc] 10 mg PO DAILY 02/28/19 02/28/19 Unknown History Antifungal 1% CREAM 1 pack TP DAILY 02/28/19 02/28/19 Unknown History Calcium Acetate [Phoslo] 667 mg PO TID 02/28/19 02/28/19 Unknown History Ferrous Sulfate [Feosol 325 MG tab] 325 mg PO BID 02/28/19 02/28/19 Unknown History Folic Acid [Folvite] 1 mg PO QDAY 02/28/19 02/28/19 Unknown History Glucagon (Human Recomb) [Glucagen] 1 mg IM Q15MIN PRN 02/28/19 02/28/19 Unknown History Insulin Lispro [Humalog 100 100 unit SQ PRN PRN 02/28/19 02/28/19 Unknown History UNITS/ML Kwikpen] Levothyroxine [Synthroid] 150 mcg PO QAM 02/28/19 02/28/19 Unknown History PARoxetine HCl [PARoxetine] 20 mg PO HS 02/28/19 02/28/19 Unknown History Sennosides Tab [Senokot] 1 tab PO HS PRN 02/28/19 02/28/19 Unknown History Thiamine [Vitamin B-1] 100 mg PO QDAY 02/28/19 02/28/19 Unknown History risperiDONE [Risperdal] 2 mg PO DAILY 02/28/19 02/28/19 Unknown History Pantoprazole [Protonix TAB] 40 mg PO BID 60 Days tablet 03/06/19 Unknown Rx Active Medications: Generic Name Dose Route Start Last Admin Trade Name Freq PRN Reason Stop Dose Admin Acetaminophen 650 mg 02/28/19 04:19 Tylenol PO Q4H PRN Pain MILD(1-3)/Fever >100.5/SEYMOUR Acetaminophen/Hydrocodone Bitart 2 each 02/28/19 04:20 03/02/19 22:06 [place] 5/325 PO 2 each Q6H PRN Administration Pain, Moderate (4-6) Albumin Human 25 gm 03/02/19 12:30 03/02/19 12:58 Alburx 25% (Albumin) IV 25 gm MARCELA PRN Administration Hypotension Epoetin Jean [place] 20,000 unit 03/01/19 16:00 03/02/19 12:58 Procrit IV 20,000 unit MARCELA PRN Administration hemodialysis Sodium Chloride 1,000 mls @ 50 mls/hr 03/01/19 09:00 03/01/19 08:38 Nacl 0.9% 1000 Ml IV 50 mls/hr DIRECT ROSELINE Administration Sodium Chloride 100 mls @ 999 mls/hr 03/02/19 12:30 Nacl 0.9% IV MARCELA PRN Hypotension Ondansetron HCl 4 mg 02/28/19 04:19 Zofran IV Q8H PRN Nausea And Vomiting Pantoprazole Sodium 40 mg 03/05/19 22:00 03/06/19 10:04 Protonix PO 40 mg BID ROSELINE Administration Senna 8.6 mg 02/28/19 10:00 03/06/19 10:03 Senokot PO Not Given Q12HR ROSELINE Sodium Chloride 10 ml 02/28/19 10:00 03/05/19 22:16 Sodium Chloride Flush Syringe 10 Ml IV 10 ml BID ROSELINE Administration
[2019-03-06 17:11] VITALS: BP 129/79
== END 2019-03-06 17:32 | DRG 280 ==
LOC: ED 00:14 → 4A 05:34
PROVIDERS: ADMIT Internal Medicine; ATTEND Internal Medicine
PROC: 30233N1 Transfusion of Nonautologous Red Blood Cells into Peripheral Vein, Percutaneous Approach (ICD-10-PCS; 2019-02-28)
PROC: 5A1D70Z Performance of Urinary Filtration, Intermittent, Less than 6 Hours Per Day (ICD-10-PCS; 2019-02-28)
PROC: 0W3P8ZZ Control Bleeding in Gastrointestinal Tract, Via Natural or Artificial Opening Endoscopic (ICD-10-PCS; principal; 2019-03-01)
PROC: 0DB68ZX Excision of Stomach, Via Natural or Artificial Opening Endoscopic, Diagnostic (ICD-10-PCS; 2019-03-01)
PROC: 0DC38ZZ Extirpation of Matter from Lower Esophagus, Via Natural or Artificial Opening Endoscopic (ICD-10-PCS; 2019-03-01)
PROC: 5A1D70Z Performance of Urinary Filtration, Intermittent, Less than 6 Hours Per Day (ICD-10-PCS; 2019-03-02)
PROC: 5A1D70Z Performance of Urinary Filtration, Intermittent, Less than 6 Hours Per Day (ICD-10-PCS; 2019-03-05)
DX: I21.A1 Myocardial infarction type 2 (principal); K22.11 Ulcer of esophagus with bleeding; N18.6 End stage renal disease; E43 Unspecified severe protein-calorie malnutrition; R57.1 Hypovolemic shock; E11.22 Type 2 diabetes mellitus with diabetic chronic kidney disease; Z99.2 Dependence on renal dialysis; R18.8 Other ascites; I50.9 Heart failure, unspecified; E03.9 Hypothyroidism, unspecified; B19.20 Unspecified viral hepatitis C without hepatic coma; D62 Acute posthemorrhagic anemia; I42.8 Other cardiomyopathies; K25.9 Gastric ulcer, unspecified as acute or chronic, without hemorrhage or perforation; I12.0 Hypertensive chronic kidney disease with stage 5 chronic kidney disease or end stage renal disease; D63.1 Anemia in chronic kidney disease; I13.2 Hypertensive heart and chronic kidney disease with heart failure and with stage 5 chronic kidney disease, or end stage renal disease; F20.9 Schizophrenia, unspecified; Z86.73 Personal history of transient ischemic attack (TIA), and cerebral infarction without residual deficits; Z88.0 Allergy status to penicillin; Z88.8 Allergy status to other drugs, medicaments and biological substances; Z79.51 Long term (current) use of inhaled steroids; Z79.899 Other long term (current) drug therapy; Z79.4 Long term (current) use of insulin; Z87.891 Personal history of nicotine dependence
CPT/HCPCS: 36415; 71045; 74176; 80048; 80053; 80061; 81001; 82550; 82553; 82962; 83690; 84484; 85014; 85018; 85025; 85027; 85610; 85730; 86850; 86900; 86901; 86920; 87116; 88305; 88342; 93005; 93010; 93306; G0378; C9113; J0885; J2370; J2704; J2785; J3010; J7030; J7040; P9016; P9047

== ENCOUNTER 2019-04-06 10:47 | Observation (INO) | payer MEDICAID ==
--- NOTE | 2019-04-06 11:39 | Emergency Department Report ---
HPI - General Chief Complaint: GI Bleed Time Seen by Provider: 04/06/19 11:08 - HPI HPI: 58-year-old -Danish female presents to the emergency department from her halfway at [facility] with a complaint of vomiting blood since last night. Patient has a history of CHF, hypertension, hepatitis C with ascites, depression, schizophrenia, previous CVA, hypothyroidism and does have a history of previous GI bleeding with hematemesis. The patient was here twice in February of this year for similar symptoms. She had empiric embolization of the left gastric artery done on 02/10. She had an EGD done on 02/13 and 03/01 showing large gastric ulcer and ulcerative esophagitis. Patient is a poor historian and most of this information has been obtained from the halfway facility and previous records. She has required transfusions in the recent past secondary to her anemia and GI bleeding. ED Past Medical Hx - Past Medical History Previous Medical History?: Yes Hx Hypertension: Yes (HX CHF) Hx Congestive Heart Failure: Yes Hx Diabetes: No Hx Liver Disease: Yes (HEP C. 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) Hx Psychiatric Treatment: Yes (major depressive disorder, schizophrenia) Hx Asthma: No Hx COPD: No Hx HIV: No Additional medical history: Cerebral infar, withh thrombosis of left cerebral artery, ESRDulcers of esophagus with bleeding, falls, hyperlipidemia, allergic rhinitis, constipation, anemia, vit D deficiency, hypothyroid, chronic pain, sinuitis, pruitis, didpl unsp condyle fx low end l femur 7th D, Hep C - Surgical History Past Surgical History?: Yes Additional Surgical History: left hip, left leg sx, x3, both feet sx - Social History Smoking Status: Never Smoker Substance Use Type: None - Medications Home Medications: Home Medications Medication Instructions Recorded Confirmed Last Taken Type Acetaminophen [Acetaminophen TAB] 650 mg PO Q12HR PRN 02/09/19 02/28/19 Unknown History Polyethylene Glycol 3350 [Miralax 17 gm PO QDAY 02/09/19 02/28/19 Unknown History 3350] Albuterol Sulfate [Proair 2 puff IH Q6HR PRN 02/28/19 02/28/19 Unknown History Respiclick] Amlodipine Besylate [Norvasc] 10 mg PO DAILY 02/28/19 02/28/19 Unknown History Antifungal 1% CREAM 1 pack TP DAILY 02/28/19 02/28/19 Unknown History Calcium Acetate [Phoslo] 667 mg PO TID 02/28/19 02/28/19 Unknown History Ferrous Sulfate [Feosol 325 MG tab] 325 mg PO BID 02/28/19 02/28/19 Unknown History Folic Acid [Folvite] 1 mg PO QDAY 02/28/19 02/28/19 Unknown History Glucagon (Human Recomb) [Glucagen] 1 mg IM Q15MIN PRN 02/28/19 02/28/19 Unknown History Insulin Lispro [Humalog 100 100 unit SQ PRN PRN 02/28/19 02/28/19 Unknown History UNITS/ML Kwikpen] Levothyroxine [Synthroid] 150 mcg PO QAM 02/28/19 02/28/19 Unknown History PARoxetine HCl [PARoxetine] 20 mg PO HS 02/28/19 02/28/19 Unknown History Sennosides Tab [Senokot] 1 tab PO HS PRN 02/28/19 02/28/19 Unknown History Thiamine [Vitamin B-1] 100 mg PO QDAY 02/28/19 02/28/19 Unknown History risperiDONE [Risperdal] 2 mg PO DAILY 02/28/19 02/28/19 Unknown History Pantoprazole [Protonix TAB] 40 mg PO BID 60 Days tablet 03/06/19 Unknown Rx ED Review of Systems ROS: Stated complaint: GI BLEED Other details as noted in HPI Comment: Unobtainable due to pts medical conditions Physical Exam - Physical Exam Vital Signs: Vital Signs 04/06/19 11:03 Pulse Rate 105 H Respiratory 18 Rate Blood Pressure 132/90 O2 Sat by Pulse 96 Oximetry Physical Exam: GENERAL: The patient is well-developed well-nourished. HENT: Normocephalic. Atraumatic. Patient has moist mucous membranes. EYES: Extraocular motions are intact. NECK: Supple. Trachea is midline. CHEST/LUNGS: Clear to auscultation. There is no respiratory distress noted. HEART/CARDIOVASCULAR: Regular. There is no tachycardia. There is no murmur. ABDOMEN: Abdomen is soft, nontender. Patient has normal bowel sounds. SKIN: Skin is warm and dry. NEURO: The patient is awake but appears confused. Follows some commands. Nonverbal. MUSCULOSKELETAL: There is no tenderness or deformity. There is no evidence of acute injury. ED Course Vital Signs 04/06/19 11:03 Pulse Rate 105 H Respiratory 18 Rate Blood Pressure 132/90 O2 Sat by Pulse 96 Oximetry - Consultations Consultation #1: I spoke with the ore dryer on-call, Dr. Martini, regarding the patient's return for her GI bleeding and hematemesis issues. GI will see the patient has a consult but she does not appear to require any emergent scoping or intervention. I spoke with the tobacco grower on-call, Dr. Goff, who will arrange for the patient to receive dialysis today secondary to her hyperkalemia. He does not require any treatment for the hyperkalemia prior to dialysis. 04/06/19 15:46 ED Medical Decision Making - Lab Data Result diagrams: 04/06/19 13:11 04/06/19 13:11 - Radiology Data Radiology results: image reviewed interpreted by me: Chest x-ray does not show any acute process. There are no pleural effusions, obvious pneumonia and there is no pneumothorax. Abdominal x-ray shows nonspecific nonobstructive bowel gas. - Medical Decision Making This patient presents with hematemesis since last night. She has had one or 2 episodes in the emergency department. Hemoglobin is 9.7 which is improved from previous visits and does not require a transfusion. Labs also show hyperkalemia with a potassium of 6.4. She has been given some Protonix to protect the GI tract. I have spoken to GI and nephrology and both have been consult. The patient will receive stat dialysis for her hyperkalemia. She has been accepted for admission by the hospitalist, Dr. Rider. - Differential Diagnosis gastric ulcer, malignancy, hyperkalemia, esophagitis Critical Care Time: Yes Critical care time in (mins) excluding proc time.: 31 Critical care attestation.: If time is entered above; I have spent that time in minutes in the direct care of this critically ill patient, excluding procedure time. Critical care time was spent on this patient and doing her initial evaluation, multiple re- evaluations, ordering and interpretation of labs and imaging, discussion with gastroenterology and nephrology and hospital medicine. Critical Care Time: 31 minutes ED Disposition Clinical Impression: ESRD (end stage renal disease) on dialysis, Hyperkalemia GI bleed Qualifiers: GI bleed type/associated pathology: unspecified gastrointestinal hemorrhage type Qualified Code(s): K92.2 - Gastrointestinal hemorrhage, unspecified Hematemesis Qualifiers: Nausea presence: unspecified Qualified Code(s): K92.0 - Hematemesis Disposition: 09 OP ADMIT IP TO THIS HOSP Is pt being admited?: Yes Condition: Serious Referrals: PRIMARY CARE, [Primary Care Provider] - 3-5 Days Forms: Accompanied Note Time of Disposition: 15:17
--- NOTE | 2019-04-06 11:52 | XRay Report ---
ABDOMEN 1 VIEW INDICATION / CLINICAL INFORMATION: vomiting, hematemesis. COMPARISON: CT dated 02/28/19 FINDINGS: TUBES / LINES: None. BOWEL GAS PATTERN: No dilated loops of small or large bowel. Embolization coils in the upper abdomen likely in the stomach. Endoscopy capsule is present in the right lower quadrant either in the distal ileum or cecum. FREE AIR / EXTRALUMINAL GAS: None seen. ADDITIONAL FINDINGS: Bulging flanks with increased density likely representing ascites as noted on pr ior CT. IMPRESSION: 1. No bowel obstruction or free air. 2. Probable ascites. Signer Name: Ivis Chin MD Signed: 04/06/2019 11:47 AM Workstation Name: [id number]
[2019-04-06 14:23] LABS: Albumin 2.5 g/dL (3.9-5)
[2019-04-06 14:44] LABS: Basophils % (Auto) 0.3 % (0.0-1.8); Eosinophils % (Auto) 0.1 % (0.0-4.3); Hemoglobin 9.7 gm/dl (10.1-14.3); Lymphocytes # (Auto) 0.6 K/mm3 (1.2-5.4); Mean Corpuscular HGB Conc 33 % (30-34); Mean Corpuscular Volume 84 fl (79-97); Monocytes # (Auto) 0.1 K/mm3 (0.0-0.8); Monocytes % (Auto) 1.3 % (0.0-7.3); Red Blood Count 3.59 M/mm3 (3.65-5.03); Red Cell Distribution Width 16.4 % (13.2-15.2)
[2019-04-06 14:46] LABS: Platelet Count 99 K/mm3 (140-440)
[2019-04-06] MEDS ORDERED: PANTOPRAZOLE 40 MG INJ IV ONE (14:51)
[2019-04-06 15:15] LABS: INR 1.25 (0.87-1.13)
[2019-04-06] MEDS ORDERED: SODIUM CHLORIDE 0.9% 100 ML IV PRN (16:14)
[2019-04-06 18:37] LABS: Hepatitis B Surface Antigen Non-Reactive (Negative); Hepatitis C Virus Antibody Non-Reactive (NonReactive)
[2019-04-06] MEDS ORDERED: METOCLOPRAMIDE 10 MG/2 ML INJ IV PRN ×2 (21:05→21:11)
[2019-04-06] MEDS ORDERED: ONDANSETRON 4 MG/2 ML INJ IV PRN (21:05)
[2019-04-06] MEDS ORDERED: ACETAMINOPHEN 325 MG TAB PO PRN (21:05)
[2019-04-06] MEDS ORDERED: PROMETHAZINE 25 MG RECT SUPP PR PRN (21:05)
[2019-04-06] MEDS ORDERED: HYDROmorphone 1 MG/1 ML INJ IV PRN (21:05)
[2019-04-06] MEDS: PANTOPRAZOLE 40 MG INJ IV SCH (21:44)
[2019-04-07 00:07] LABS: Hematocrit 29.7 % (30.3-42.9); Hemoglobin 9.5 gm/dl (10.1-14.3)
[2019-04-07 05:43] LABS: Albumin 2.4 g/dL (3.9-5); Calcium 7.9 mg/dL (8.4-10.2)
--- NOTE | 2019-04-07 06:15 | Event Note ---
Date: 04/06/19 See H/p in reports Upper GI Bleed
[2019-04-07] MEDS ORDERED: hydrALAZINE 20 MG/1 ML INJ IV PRN (06:28)
--- NOTE | 2019-04-07 06:37 | History and Physical Report ---
CHIEF COMPLAINT: Upper gastrointestinal bleed. HISTORY OF PRESENT ILLNESS: A 58-year-old -Gabonese female who presents to the Emergency Department from a fdc at [place] with complaints of vomiting blood since last night. The patient has a history of CHF, hypertension, hepatitis C, ascites, previous CVA and hypothyroidism. The patient was admitted here recently for upper gastrointestinal bleed. The patient had an EGD on 03/05/2019 and 03/01/2019 showing gastric ulcer and ulcerative esophagitis. The patient is a very poor historian. PAST MEDICAL HISTORY: Significant for hypertension, congestive heart failure, diabetes, hepatitis C, end-stage renal disease, cerebral infarct with thrombosis of the left cerebral artery, major depressive disorder, cerebral infarction with thrombosis. PAST SURGICAL HISTORY: Left hip surgery, x 3. SOCIAL HISTORY: Does not smoke. FAMILY HISTORY: Hypertension. REVIEW OF SYSTEMS: Significant for vomiting blood. Otherwise, review of systems negative. All 14-point review of systems done. PHYSICAL EXAMINATION: GENERAL: Elderly female, cooperative during examination. VITAL SIGNS: Last blood pressure is 139/82, temperature is 98, pulse is 76, respirations are 16. HEENT: Unremarkable. Pupils equal and reactive. NECK: Supple, no lymphadenopathy, no thyromegaly. LUNGS: Clear to auscultation and percussion. Good air entry. CARDIOVASCULAR: S1, S2 heard. No gallop, no murmur, no rub. Apical impulse in left fifth intercostal space and midclavicular line. ABDOMEN: Soft and benign. No hepatosplenomegaly. No guarding, no rigidity. Hernial orifices are normal. EXTREMITIES: Good pedal pulses. No pedal edema. CENTRAL NERVOUS SYSTEM: Alert and oriented x 4, nonfocal exam. SKIN: Normal. LABORATORY DATA: White count is 6200, H and H is 9.7 and 30.0, platelet count is 99. Potassium is 6.4, BUN and creatinine is 22 and 2.6, albumin is 2.5. Hepatitis profile is negative. ASSESSMENT AND PLAN: 1. Upper gastrointestinal bleed. The patient started on IV Protonix. GI consult requested. Monitor hemoglobin and hematocrit q.6-8 hours, if lower than 8, transfuse. 2. Hyperkalemia, treated in the Emergency Room. 3. End-stage renal disease. Continue dialysis. Renal consult requested. 4. Chronic obstructive pulmonary disease. Continue DuoNebs. 5. Hypothyroidism. Continue Synthroid. We will hold the Synthroid for the 24-36 hours. 6. Insulin-dependent diabetes. Continue insulin. 7. Deep venous thrombosis prophylaxis, heparin 5000 q. 12. JOB# [id number] CHAO/NTS MTDD
[2019-04-07] MEDS: INSULIN LISPRO 100 UNIT/ML SUB-Q SCH ×3 (08:00→17:25)
--- NOTE | 2019-04-07 10:08 | Consultation ---
History of Present Illness - Reason for Consult Consult date: 04/07/19 acute renal failure, hyperkalemia Requesting physician: FARIBA QUIROZ - History of Present Illness This is a 58 yo F [place], with past medical history of ESRD on HD, CHF, hep C, CVA, hypothyroidism, DM type 2, who was sent from [place] for recurrent vomiting episode. Labs in ER showed elevated K > 6.4 and renal consult was requested for management of ESRD/HD for correction of hyperkalemia. Patient is very poor historian, history obtained by chart review. Pt had EGD in 02/2019 which showed gastric ulcer and ulcerative colitis. Past History Past Medical History: ESRD, heart failure, hepatitis, liver disease Past Surgical History: Other (L hip surgery, C section ) Social history: no significant social history Family history: no significant family history Medications and Allergies Allergies Allergy/AdvReac Type Severity Reaction Status Date / Time guaifenesin [From Robitussin] Allergy Hives Verified 02/09/19 07:00 Penicillins Allergy Hives Verified 02/09/19 07:00 Home Medications Medication Instructions Recorded Confirmed Last Taken Type Acetaminophen [Acetaminophen TAB] 650 mg PO Q12HR PRN 02/09/19 02/28/19 Unknown History Polyethylene Glycol 3350 [Miralax 17 gm PO QDAY 02/09/19 02/28/19 Unknown History 3350] Albuterol Sulfate [Proair 2 puff IH Q6HR PRN 02/28/19 02/28/19 Unknown History Respiclick] Amlodipine Besylate [Norvasc] 10 mg PO DAILY 02/28/19 02/28/19 Unknown History Antifungal 1% CREAM 1 pack TP DAILY 02/28/19 02/28/19 Unknown History Calcium Acetate [Phoslo] 667 mg PO TID 02/28/19 02/28/19 Unknown History Ferrous Sulfate [Feosol 325 MG tab] 325 mg PO BID 02/28/19 02/28/19 Unknown History Folic Acid [Folvite] 1 mg PO QDAY 02/28/19 02/28/19 Unknown History Glucagon (Human Recomb) [Glucagen] 1 mg IM Q15MIN PRN 02/28/19 02/28/19 Unknown History Insulin Lispro [Humalog 100 100 unit SQ PRN PRN 02/28/19 02/28/19 Unknown History UNITS/ML Kwikpen] Levothyroxine [Synthroid] 150 mcg PO QAM 02/28/19 02/28/19 Unknown History PARoxetine HCl [PARoxetine] 20 mg PO HS 02/28/19 02/28/19 Unknown History Sennosides Tab [Senokot] 1 tab PO HS PRN 02/28/19 02/28/19 Unknown History Thiamine [Vitamin B-1] 100 mg PO QDAY 02/28/19 02/28/19 Unknown History risperiDONE [Risperdal] 2 mg PO DAILY 02/28/19 02/28/19 Unknown History Pantoprazole [Protonix TAB] 40 mg PO BID 60 Days tablet 03/06/19 Unknown Rx Active Meds: Active Medications Acetaminophen (Tylenol) 650 mg PO Q4H PRN PRN Reason: Pain MILD(1-3)/Fever >100.5/SEYMOUR Hydralazine HCl (Apresoline) 20 mg IV Q3H PRN PRN Reason: Blood Pressure Hydromorphone HCl (Dilaudid) 0.5 mg IV Q3H PRN PRN Reason: Pain , Severe (7-10) Sodium Chloride (Nacl 0.9%) 100 mls @ 999 mls/hr IV MARCELA PRN PRN Reason: Hypotension Insulin Human Lispro (Humalog) 0 unit SUB-Q Q6HR COUNTS INCLUDE 234 BEDS AT THE [facility]; Protocol Metoclopramide HCl (Reglan) 5 mg IV Q6H PRN PRN Reason: Nausea And Vomiting Ondansetron HCl (Zofran) 4 mg IV Q8H PRN PRN Reason: Nausea And Vomiting Pantoprazole Sodium (Protonix) 40 mg IV BID COUNTS INCLUDE 234 BEDS AT THE [facility] Last Admin: 04/06/19 21:44 Dose: 40 mg Documented by: Promethazine HCl (Phenergan) 25 mg [place] Q6H PRN PRN Reason: N/V IF NPO AND NO IV ACCESS Sodium Chloride (Sodium Chloride Flush Syringe 10 Ml) 10 ml IV BID COUNTS INCLUDE 234 BEDS AT THE [facility] Last Admin: 04/06/19 22:00 Dose: 10 ml Documented by: Sodium Chloride (Sodium Chloride Flush Syringe 10 Ml) 10 ml IV PRN PRN PRN Reason: LINE FLUSH Review of Systems All systems: negative Constitutional: fatigue, weakness Gastrointestinal: nausea, vomiting Exam - Vital Signs Vital signs: Vital Signs Pulse Resp BP Pulse Ox 105 H 18 132/90 96 04/06/19 11:03 04/06/19 11:03 04/06/19 11:03 04/06/19 11:03 - General Appearance General appearance: appears stated age, chronically ill, frail EENT: ATNC, PERRL, mucous membranes moist Neck: Present: neck supple Respiratory: Decreased Breath Sounds Heart: regular, S1S2 Gastrointestinal: Present: distended Integumentary: no rash, other (no edema ) Neurologic: no focal deficit, alert and oriented x3, CN 3-12 intact Results - Lab Results 04/06/19 22:46 04/07/19 05:00 Most recent lab results Calcium 7.9 mg/dL (8.4-10.2) L 04/07/19 05:00 Assessment and Plan - Patient Problems (1) Hyperkalemia Current Visit: Yes Status: Acute Plan to address problem: K normalized with HD. cont 2 g K renal diet (2) ESRD (end stage renal disease) on dialysis Current Visit: Yes Status: Chronic Plan to address problem: cont HD on MWF schedule (3) Hepatitis C Current Visit: No Status: Acute Plan to address problem: follow GI recommendations (4) Type 2 diabetes mellitus with diabetic chronic kidney disease Current Visit: Yes Status: Chronic Qualifiers: Chronic kidney disease stage: on chronic dialysis Plan to address problem: DM management as per primary attending
[2019-04-07] MEDS: PANTOPRAZOLE 40 MG INJ IV SCH ×2 (10:12→22:24)
[2019-04-07 12:29] LABS: Hematocrit 31.2 % (30.3-42.9); Hemoglobin 9.6 gm/dl (10.1-14.3); Mean Corpuscular HGB Conc 31 % (30-34); Mean Corpuscular Volume 89 fl (79-97); Red Blood Count 3.51 M/mm3 (3.65-5.03); Red Cell Distribution Width 16.3 % (13.2-15.2)
[2019-04-07 12:30] LABS: Platelet Count 66 K/mm3 (140-440)
--- NOTE | 2019-04-07 14:02 | Progress Note ---
Assessment and Plan Assessment and plan: 58-year-old -[place] female was presented from the [place] long term for the complaints of vomiting blood since last night patient had history of congestive heart failure, hypertension chronic liver disease with ascites, previous CVA and hypothyroidism Upper GI bleed - H&H is stable - GI consulted for further evaluation and management - On IV Protonix Hyperkalemia - Patient was treated with hyperkalemia cocktail - Potassium was corrected End-stage renal disease on hemodialysis - Nephrology is consulted for continuing dialysis COPD - Continue DuoNebs, stable Hypothyroidism - Continue Synthroid Diabetes mellitus -Sliding-scale insulin, ADA diet, Accu-Chek DVT prophylaxis - Heparin Disposition continue inpatient care History Interval history: Patient was seen and evaluated this morning, patient was alert and oriented but very weak. Hospitalist Physical - Physical exam Narrative exam: Not in cardiopulmonary distress. The patient appeared well nourished and normally developed. Vital signs as documented. Head exam is unremarkable. No scleral icterus . Neck is without jugular venous distension, thyromegaly, or carotid bruits. Lungs are clear to auscultation. Cardiac exam reveals regular rate and Rhythm. Abdominal exam reveals ascites. Extremities bilateral lower extremity edema. [employer]: Alert and oriented 3. - Constitutional Vitals: Temp Pulse Resp BP Pulse Ox 97.6 F 72 18 124/83 100 04/07/19 08:07 04/07/19 11:55 04/07/19 11:55 04/07/19 11:55 04/07/19 11:55 Results - Labs CBC & Chem 7: 04/07/19 11:55 04/07/19 05:00 Labs: Laboratory Last Values WBC 5.0 K/mm3 (4.5-11.0) 04/07/19 11:55 RBC 3.51 M/mm3 (3.65-5.03) L 04/07/19 11:55 Hgb 9.6 gm/dl (10.1-14.3) L 04/07/19 11:55 Hct 31.2 % (30.3-42.9) 04/07/19 11:55 MCV 89 fl (79-97) 04/07/19 11:55 MCH 27 pg (28-32) L 04/07/19 11:55 MCHC 31 % (30-34) 04/07/19 11:55 RDW 16.3 % (13.2-15.2) H 04/07/19 11:55 Plt Count 66 K/mm3 (140-440) L 04/07/19 11:55 Lymph % (Auto) 10.0 % (13.4-35.0) L 04/06/19 13:11 Baldwin % (Auto) 1.3 % (0.0-7.3) 04/06/19 13:11 Eos % (Auto) 0.1 % (0.0-4.3) 04/06/19 13:11 Baso % (Auto) 0.3 % (0.0-1.8) 04/06/19 13:11 Lymph # 0.6 K/mm3 (1.2-5.4) L 04/06/19 13:11 Baldwin # 0.1 K/mm3 (0.0-0.8) 04/06/19 13:11 Eos # 0.0 K/mm3 (0.0-0.4) 04/06/19 13:11 Baso # 0.0 K/mm3 (0.0-0.1) 04/06/19 13:11 Seg Neutrophils % 88.3 % (40.0-70.0) H 04/06/19 13:11 Seg Neutrophils # 5.4 K/mm3 (1.8-7.7) 04/06/19 13:11 PT 15.4 Sec. (12.2-14.9) H 04/06/19 14:43 INR 1.25 (0.87-1.13) H 04/06/19 14:43 APTT 46.0 Sec. (24.2-36.6) H 04/06/19 14:43 Sodium 137 mmol/L (137-145) 04/07/19 05:00 Potassium 3.7 mmol/L (3.6-5.0) D 04/07/19 05:00 Chloride 100.1 mmol/L (98-107) 04/07/19 05:00 Carbon Dioxide 30 mmol/L (22-30) 04/07/19 05:00 11 mmol/L 04/07/19 05:00 BUN 19 mg/dL (7-17) H 04/07/19 05:00 2.4 mg/dL (0.7-1.2) H 04/07/19 05:00 Estimated GFR 25 ml/min 04/07/19 05:00 8 % 04/07/19 05:00 Glucose 103 mg/dL (65-100) H 04/07/19 05:00 POC Glucose 104 (70-105) 04/07/19 12:06 5.1 % (4-6) 04/06/19 22:46 Calcium 7.9 mg/dL (8.4-10.2) L 04/07/19 05:00 0.40 mg/dL (0.1-1.2) 04/07/19 05:00 AST 41 units/L (5-40) H 04/07/19 05:00 ALT 26 units/L (7-56) 04/07/19 05:00 52 units/L (35-129) 04/07/19 05:00 19.0 umol/L (25-60) L 04/07/19 11:02 5.9 g/dL (6.3-8.2) L 04/07/19 05:00 2.4 g/dL (3.9-5) L 04/07/19 05:00 0.7 % 04/07/19 05:00 Hepatitis A IgM Ab Non-reactive (NonReactive) 04/06/19 16:28 Hep Bs Antigen Non-reactive (Negative) 04/06/19 16:28 Hep B Core IgM Ab Non-reactive (NonReactive) 04/06/19 16:28 Non-reactive (NonReactive) 04/06/19 16:28 Blood Type B POSITIVE 04/06/19 13:11 Antibody Screen Negative 04/06/19 13:11 Active Medications - Current Medications Current Medications: Generic Name Dose Route Start Last Admin Trade Name Freq PRN Reason Stop Dose Admin Acetaminophen 650 mg 04/06/19 21:05 Tylenol PO Q4H PRN Pain MILD(1-3)/Fever >100.5/SEYMOUR Hydralazine HCl 20 mg 04/07/19 06:28 Apresoline IV Q3H PRN Blood Pressure Hydromorphone HCl 0.5 mg 04/06/19 21:05 Dilaudid IV Q3H PRN Pain , Severe (7-10) Sodium Chloride 100 mls @ 999 mls/hr 04/06/19 16:14 Nacl 0.9% IV AMRCELA PRN Hypotension Insulin Human Lispro 0 unit 04/07/19 07:00 04/07/19 08:00 Humalog SUB-Q Not Given Q6HR [facility] Protocol Metoclopramide HCl 5 mg 04/06/19 21:11 Reglan IV Q6H PRN Nausea And Vomiting Ondansetron HCl 4 mg 04/06/19 21:05 Zofran IV Q8H PRN Nausea And Vomiting Pantoprazole Sodium 40 mg 04/06/19 22:00 04/07/19 10:12 Protonix IV 40 mg BID ROSELINE Administration Promethazine HCl 25 mg 04/06/19 21:05 Phenergan DC Q6H PRN N/V IF NPO AND NO IV ACCESS Sodium Chloride 10 ml 04/06/19 22:00 04/07/19 10:13 Sodium Chloride Flush Syringe 10 Ml IV 10 ml BID ROSELINE Administration Sodium Chloride 10 ml 04/06/19 21:05 Sodium Chloride Flush Syringe 10 Ml IV PRN PRN LINE FLUSH
--- NOTE | 2019-04-07 18:49 | Gastroenterology Consultation ---
History of Present Illness - Reason for Consult Consult date: 04/07/19 nausea/vomiting/hematemesis Requesting physician: JUDITH FRAZIER - History of Present Illness This is a 58 yo female with pmh of ESRD on HD, CHF, CVA, chronic anemia, DM, Schizophrenia, ascites (2/2 poor nutrition/ESRD, no evidence of liver disease), and recent admission for upper GI bleed and multiple EGDs recently for upper GI bleed evaluation admitted from [place] for nausea/vomiting and reports of hematemesis. Today, no episode of nausea/vomiting. Patient denies abdominal pain but unable to give much history. No blood in the stool per nursing. H/H higher than previous discharge. She has undergone multiple EGDs with EGD 02/13/19 showing large 4cm ulcer on lesser curve (bx negative; negative colonoscopy at [place] per pt report 01/2019), and is s/p empiric embolization of Left gastric artery by IR 02/10/19. repeat EGD 03/01/19 that showed ulcerative esophagitis with adherent clot with underlying oozing of blood (clip x 1 with hemostasis), and large ulcer along lesser curvature as seen on prior endoscopy with necrosis appearance but no high risk bleeding lesions. Medication list reviewed. Past History Past Medical History: ESRD, heart failure, hepatitis, liver disease Past Surgical History: Other (L hip surgery, C section ) Social history: no significant social history Family history: no significant family history Medications and Allergies Allergies Allergy/AdvReac Type Severity Reaction Status Date / Time guaifenesin [From Robitussin] Allergy Hives Verified 02/09/19 07:00 Penicillins Allergy Hives Verified 02/09/19 07:00 Home Medications Medication Instructions Recorded Confirmed Last Taken Type Acetaminophen [Acetaminophen TAB] 650 mg PO Q12HR PRN 02/09/19 02/28/19 Unknown History Polyethylene Glycol 3350 [Miralax 17 gm PO QDAY 02/09/19 02/28/19 Unknown History 3350] Albuterol Sulfate [Proair 2 puff IH Q6HR PRN 02/28/19 02/28/19 Unknown History Respiclick] Amlodipine Besylate [Norvasc] 10 mg PO DAILY 02/28/19 02/28/19 Unknown History Antifungal 1% CREAM 1 pack TP DAILY 02/28/19 02/28/19 Unknown History Calcium Acetate [Phoslo] 667 mg PO TID 02/28/19 02/28/19 Unknown History Ferrous Sulfate [Feosol 325 MG tab] 325 mg PO BID 02/28/19 02/28/19 Unknown History Folic Acid [Folvite] 1 mg PO QDAY 02/28/19 02/28/19 Unknown History Glucagon (Human Recomb) [Glucagen] 1 mg IM Q15MIN PRN 02/28/19 02/28/19 Unknown History Insulin Lispro [Humalog 100 100 unit SQ PRN PRN 02/28/19 02/28/19 Unknown History UNITS/ML Kwikpen] Levothyroxine [Synthroid] 150 mcg PO QAM 02/28/19 02/28/19 Unknown History PARoxetine HCl [PARoxetine] 20 mg PO HS 02/28/19 02/28/19 Unknown History Sennosides Tab [Senokot] 1 tab PO HS PRN 02/28/19 02/28/19 Unknown History Thiamine [Vitamin B-1] 100 mg PO QDAY 02/28/19 02/28/19 Unknown History risperiDONE [Risperdal] 2 mg PO DAILY 02/28/19 02/28/19 Unknown History Pantoprazole [Protonix TAB] 40 mg PO BID 60 Days tablet 03/06/19 Unknown Rx Active Meds: Active Medications Acetaminophen (Tylenol) 650 mg PO Q4H PRN PRN Reason: Pain MILD(1-3)/Fever >100.5/SEYMOUR Hydralazine HCl (Apresoline) 20 mg IV Q3H PRN PRN Reason: Blood Pressure Hydromorphone HCl (Dilaudid) 0.5 mg IV Q3H PRN PRN Reason: Pain , Severe (7-10) Sodium Chloride (Nacl 0.9%) 100 mls @ 999 mls/hr IV MARCELA PRN PRN Reason: Hypotension Insulin Human Lispro (Humalog) 0 unit SUB-Q Q6HR [facility]; Protocol Last Admin: 04/07/19 17:25 Dose: Not Given Documented by: Metoclopramide HCl (Reglan) 5 mg IV Q6H PRN PRN Reason: Nausea And Vomiting Ondansetron HCl (Zofran) 4 mg IV Q8H PRN PRN Reason: Nausea And Vomiting Pantoprazole Sodium (Protonix) 40 mg IV BID [facility] Last Admin: 04/07/19 10:12 Dose: 40 mg Documented by: Promethazine HCl (Phenergan) 25 mg IN Q6H PRN PRN Reason: N/V IF NPO AND NO IV ACCESS Sodium Chloride (Sodium Chloride Flush Syringe 10 Ml) 10 ml IV BID ROSELINE Last Admin: 04/07/19 10:13 Dose: 10 ml Documented by: Sodium Chloride (Sodium Chloride Flush Syringe 10 Ml) 10 ml IV PRN PRN PRN Reason: LINE FLUSH Review of Systems - Review of Systems ROS unobtainable: due to mental status Exam - Constitutional Vital Signs: Temp Pulse Resp BP Pulse Ox 97.6 F 72 18 124/83 100 04/07/19 08:07 04/07/19 11:55 04/07/19 11:55 04/07/19 11:55 04/07/19 11:55 General appearance: no acute distress - EENT Eyes: EOM intact ENT: hearing intact - Respiratory Respiratory effort: normal - Cardiovascular Rhythm: regular Heart Sounds: Present: S1 & S2 - Gastrointestinal General gastrointestinal: Present: soft, non-tender, non-distended - Integumentary Integumentary: Present: warm, dry - Neurologic Neurological: oriented to person, oriented to place - Labs CBC & Chem 7: 04/07/19 11:55 04/07/19 05:00 Lab Results: Laboratory Results - last 24 hr 04/06/19 04/06/19 04/07/19 22:46 22:46 05:00 WBC RBC Hgb 9.5 L Hct 29.7 L MCV MCH MCHC RDW Plt Count Sodium 137 Potassium 3.7 D Chloride 100.1 Carbon Dioxide 30 Anion Gap 11 BUN 19 H Creatinine 2.4 H Estimated GFR 25 BUN/Creatinine Ratio 8 Glucose 103 H POC Glucose Hemoglobin A1c 5.1 Calcium 7.9 L Total Bilirubin 0.40 AST 41 H ALT 26 Alkaline Phosphatase 52 Ammonia Total Protein 5.9 L Albumin 2.4 L Albumin/Globulin Ratio 0.7 04/07/19 04/07/19 04/07/19 08:13 11:02 11:55 WBC 5.0 RBC 3.51 L Hgb 9.6 L Hct 31.2 MCV 89 MCH 27 L MCHC 31 RDW 16.3 H Plt Count 66 L Sodium Potassium Chloride Carbon Dioxide Anion Gap BUN Creatinine Estimated GFR BUN/Creatinine Ratio Glucose POC Glucose 110 H Hemoglobin A1c Calcium Total Bilirubin AST ALT Alkaline Phosphatase Ammonia 19.0 L Total Protein Albumin Albumin/Globulin Ratio 04/07/19 04/07/19 12:06 16:54 WBC RBC Hgb Hct MCV MCH MCHC RDW Plt Count Sodium Potassium Chloride Carbon Dioxide Anion Gap BUN Creatinine Estimated GFR BUN/Creatinine Ratio Glucose POC Glucose 104 155 H Hemoglobin A1c Calcium Total Bilirubin AST ALT Alkaline Phosphatase Ammonia Total Protein Albumin Albumin/Globulin Ratio Assessment and Plan This is a 58 yo female with pmh of ESRD on HD, CHF, CVA, chronic anemia, DM, Schizophrenia, ascites (2/2 poor nutrition/ESRD, no evidence of liver disease), and recent admission for upper GI bleed admitted from [place] for nausea/vomiting and reports of hematemesis. # Nausea/vomiting/hematemesis. - reports of hematemesis at [place]. - no recurrent episode or nausea/vomiting since admission. - no reports of melena or blood per rectum. - HD stable. - Hgb at 9, higher than her previous discharge H/H. - She has undergone multiple EGDs with EGD 02/13/19 showing large 4cm ulcer on lesser curve (bx negative; negative colonoscopy at [place] per pt report 01/2019), and is s/p empiric embolization of Left gastric artery by IR 02/10/19. repeat EGD 03/01/19 that showed ulcerative esophagitis with adherent clot with underlying oozing of blood (clip x 1 with hemostasis), and large ulcer along lesser curvature as seen on prior endoscopy with necrosis appearance but no high risk bleeding lesions. - no signs of active bleeding at this time. Rec - continue with PPI IV - monitor H/H. - if signs of active bleeding and drop in H/H, will plan for EGD. - cont with clear liquid diet.
[2019-04-08] MEDS: INSULIN LISPRO 100 UNIT/ML SUB-Q SCH ×4 (06:26→19:01)
[2019-04-08 06:36] LABS: Hematocrit 23.2 % (30.3-42.9); Hemoglobin 7.5 gm/dl (10.1-14.3); Mean Corpuscular HGB Conc 33 % (30-34); Mean Corpuscular Volume 85 fl (79-97); Red Blood Count 2.74 M/mm3 (3.65-5.03); Red Cell Distribution Width 15.9 % (13.2-15.2)
[2019-04-08 06:56] LABS: Platelet Count 78 K/mm3 (140-440)
[2019-04-08] MEDS: PANTOPRAZOLE 40 MG INJ IV SCH (10:23)
--- NOTE | 2019-04-08 10:27 | Progress Note ---
Assessment and Plan - Patient Problems (1) Hyperkalemia Current Visit: Yes Status: Acute Plan to address problem: K normalized with HD. cont 2 g K renal diet (2) ESRD (end stage renal disease) on dialysis Current Visit: Yes Status: Chronic Plan to address problem: cont HD on MWF schedule (3) Hepatitis C Current Visit: No Status: Acute Plan to address problem: follow GI recommendations (4) Type 2 diabetes mellitus with diabetic chronic kidney disease Current Visit: Yes Status: Chronic Qualifiers: Chronic kidney disease stage: on chronic dialysis Plan to address problem: DM management as per primary attending Subjective Date of service: 04/08/19 (E) Principal diagnosis: ESRD Interval history: pt awake, alert, in no acute respiratory distress Objective - Vital Signs Vital signs: Vital Signs - 12hr 04/07/19 04/08/19 04/08/19 23:39 05:13 08:21 Temperature 93.3 F L 97.4 F L 97.8 F Pulse Rate 80 86 Respiratory 18 16 Rate Blood Pressure 131/80 102/65 O2 Sat by Pulse 100 98 Oximetry 04/08/19 10:19 Temperature 97.5 F L Pulse Rate Respiratory Rate Blood Pressure O2 Sat by Pulse Oximetry - General Appearance General appearance: appears stated age, chronically ill, fatigue EENT: ATNC, PERRL, mucous membranes moist Cardiology: regular, S1S2 Gastrointestinal: distended Integumentary: no rash, other (++ edema b/l LE) Neurologic: no focal deficit, alert and oriented x3, strength 5/5, CN 3-12 intact Psychiatric: mood/affect appropriate - Lab 04/08/19 06:15 04/07/19 05:00 Most recent lab results Calcium 7.9 mg/dL (8.4-10.2) L 04/07/19 05:00 Medications & Allergies - Medications Allergies/Adverse Reactions: Allergies guaifenesin [From Robitussin] Allergy (Verified 02/09/19 07:00) Hives Penicillins Allergy (Verified 02/09/19 07:00) Hives Home Medications: Home Medications Medication Instructions Recorded Confirmed Last Taken Type Acetaminophen [Acetaminophen TAB] 650 mg PO Q12HR PRN 02/09/19 02/28/19 Unknown History Polyethylene Glycol 3350 [Miralax 17 gm PO QDAY 02/09/19 02/28/19 Unknown History 3350] Albuterol Sulfate [Proair 2 puff IH Q6HR PRN 02/28/19 02/28/19 Unknown History Respiclick] Amlodipine Besylate [Norvasc] 10 mg PO DAILY 02/28/19 02/28/19 Unknown History Antifungal 1% CREAM 1 pack TP DAILY 02/28/19 02/28/19 Unknown History Calcium Acetate [Phoslo] 667 mg PO TID 02/28/19 02/28/19 Unknown History Ferrous Sulfate [Feosol 325 MG tab] 325 mg PO BID 02/28/19 02/28/19 Unknown History Folic Acid [Folvite] 1 mg PO QDAY 02/28/19 02/28/19 Unknown History Glucagon (Human Recomb) [Glucagen] 1 mg IM Q15MIN PRN 02/28/19 02/28/19 Unknown History Insulin Lispro [Humalog 100 100 unit SQ PRN PRN 02/28/19 02/28/19 Unknown History UNITS/ML Kwikpen] Levothyroxine [Synthroid] 150 mcg PO QAM 02/28/19 02/28/19 Unknown History PARoxetine HCl [PARoxetine] 20 mg PO HS 02/28/19 02/28/19 Unknown History Sennosides Tab [Senokot] 1 tab PO HS PRN 02/28/19 02/28/19 Unknown History Thiamine [Vitamin B-1] 100 mg PO QDAY 02/28/19 02/28/19 Unknown History risperiDONE [Risperdal] 2 mg PO DAILY 02/28/19 02/28/19 Unknown History Pantoprazole [Protonix TAB] 40 mg PO BID 60 Days tablet 03/06/19 Unknown Rx Active Medications: Generic Name Dose Route Start Last Admin Trade Name Freq PRN Reason Stop Dose Admin Acetaminophen 650 mg 04/06/19 21:05 Tylenol PO Q4H PRN Pain MILD(1-3)/Fever >100.5/SEYMOUR Hydralazine HCl 20 mg 04/07/19 06:28 Apresoline IV Q3H PRN Blood Pressure Hydromorphone HCl 0.5 mg 04/06/19 21:05 Dilaudid IV Q3H PRN Pain , Severe (7-10) Sodium Chloride 100 mls @ 999 mls/hr 04/06/19 16:14 Nacl 0.9% IV MARCELA PRN Hypotension Insulin Human Lispro 0 unit 04/07/19 07:00 04/08/19 06:26 Humalog SUB-Q Not Given Q6HR [facility] Protocol Metoclopramide HCl 5 mg 04/06/19 21:11 Reglan IV Q6H PRN Nausea And Vomiting Ondansetron HCl 4 mg 04/06/19 21:05 Zofran IV Q8H PRN Nausea And Vomiting Pantoprazole Sodium 40 mg 04/06/19 22:00 04/08/19 10:23 Protonix IV 40 mg BID ROSELINE Administration Promethazine HCl 25 mg 04/06/19 21:05 Phenergan [place] Q6H PRN N/V IF NPO AND NO IV ACCESS Sodium Chloride 10 ml 04/06/19 22:00 04/08/19 10:23 Sodium Chloride Flush Syringe 10 Ml IV 10 ml BID ROSELINE Administration Sodium Chloride 10 ml 04/06/19 21:05 Sodium Chloride Flush Syringe 10 Ml IV PRN PRN LINE FLUSH
[2019-04-08] MEDS ORDERED: SENNOSIDES 8.6 MG TAB PO PRN (11:21)
--- NOTE | 2019-04-08 11:23 | Progress Note ---
Assessment and Plan Assessment and plan: 58-year-old -N[place]ian female was presented from the [place] [facility] for the complaints of vomiting blood since last night patient had history of congestive heart failure, hypertension, previous CVA and hypothyroidism Upper GI bleed - That is a significant hemoglobin drop from yesterday from 9.7 to 7.5 - GI consulted and recommendations noted, said will consider EGD if patient has further bleeding or drop in H/H - On IV Protonix Hyperkalemia - Patient was treated with hyperkalemia cocktail - Potassium was corrected End-stage renal disease on hemodialysis - Nephrology is consulted for continuing dialysis COPD - Continue DuoNebs, stable Hypothyroidism - Continue Synthroid Diabetes mellitus -Sliding-scale insulin, ADA diet, Accu-Chek Hypothermia - Patient is on perico hugger - No sign of infection DVT prophylaxis - Heparin Disposition continue inpatient care. patient may need EGD. History Interval history: Patient was seen and evaluated this morning, patient was alert and oriented. Patient didn't have any complaints, no vomiting of blood overnight. Hospitalist Physical - Physical exam Narrative exam: Not in cardiopulmonary distress. The patient appeared well nourished and normally developed. Vital signs as documented. Head exam is unremarkable. No scleral icterus . Neck is without jugular venous distension, thyromegaly, or carotid bruits. Lungs are clear to auscultation. Cardiac exam reveals regular rate and Rhythm. Abdominal exam reveals ascites. Extremities bilateral lower extremity edema. 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 - Constitutional Vitals: Temp Pulse Resp BP Pulse Ox 97.5 F L 86 16 102/65 98 04/08/19 10:19 04/08/19 05:13 04/08/19 05:13 04/08/19 05:13 04/08/19 05:13 Results - Labs CBC & Chem 7: 04/08/19 06:15 04/07/19 05:00 Labs: Laboratory Last Values WBC 4.5 K/mm3 (4.5-11.0) 04/08/19 06:15 RBC 2.74 M/mm3 (3.65-5.03) L 04/08/19 06:15 Hgb 7.5 gm/dl (10.1-14.3) L 04/08/19 06:15 Hct 23.2 % (30.3-42.9) L D 04/08/19 06:15 MCV 85 fl (79-97) 04/08/19 06:15 MCH 28 pg (28-32) 04/08/19 06:15 MCHC 33 % (30-34) 04/08/19 06:15 RDW 15.9 % (13.2-15.2) H 04/08/19 06:15 Plt Count 78 K/mm3 (140-440) L 04/08/19 06:15 Lymph % (Auto) 10.0 % (13.4-35.0) L 04/06/19 13:11 [place] % (Auto) 1.3 % (0.0-7.3) 04/06/19 13:11 Eos % (Auto) 0.1 % (0.0-4.3) 04/06/19 13:11 Baso % (Auto) 0.3 % (0.0-1.8) 04/06/19 13:11 Lymph # 0.6 K/mm3 (1.2-5.4) L 04/06/19 13:11 [place] # 0.1 K/mm3 (0.0-0.8) 04/06/19 13:11 Eos # 0.0 K/mm3 (0.0-0.4) 04/06/19 13:11 Baso # 0.0 K/mm3 (0.0-0.1) 04/06/19 13:11 Seg Neutrophils % 88.3 % (40.0-70.0) H 04/06/19 13:11 Seg Neutrophils # 5.4 K/mm3 (1.8-7.7) 04/06/19 13:11 PT 15.4 Sec. (12.2-14.9) H 04/06/19 14:43 INR 1.25 (0.87-1.13) H 04/06/19 14:43 APTT 46.0 Sec. (24.2-36.6) H 04/06/19 14:43 Sodium 137 mmol/L (137-145) 04/07/19 05:00 Potassium 3.7 mmol/L (3.6-5.0) D 04/07/19 05:00 Chloride 100.1 mmol/L (98-107) 04/07/19 05:00 Carbon Dioxide 30 mmol/L (22-30) 04/07/19 05:00 11 mmol/L 04/07/19 05:00 BUN 19 mg/dL (7-17) H 04/07/19 05:00 2.4 mg/dL (0.7-1.2) H 04/07/19 05:00 Estimated GFR 25 ml/min 04/07/19 05:00 8 % 04/07/19 05:00 Glucose 103 mg/dL (65-100) H 04/07/19 05:00 POC Glucose 115 (70-105) H 04/08/19 11:24 5.1 % (4-6) 04/06/19 22:46 Calcium 7.9 mg/dL (8.4-10.2) L 04/07/19 05:00 0.40 mg/dL (0.1-1.2) 04/07/19 05:00 AST 41 units/L (5-40) H 04/07/19 05:00 ALT 26 units/L (7-56) 04/07/19 05:00 52 units/L (35-129) 04/07/19 05:00 19.0 umol/L (25-60) L 04/07/19 11:02 5.9 g/dL (6.3-8.2) L 04/07/19 05:00 2.4 g/dL (3.9-5) L 04/07/19 05:00 0.7 % 04/07/19 05:00 Hepatitis A IgM Ab Non-reactive (NonReactive) 04/06/19 16:28 Hep Bs Antigen Non-reactive (Negative) 04/06/19 16:28 Hep B Core IgM Ab Non-reactive (NonReactive) 04/06/19 16:28 Non-reactive (NonReactive) 04/06/19 16:28 Blood Type B POSITIVE 04/06/19 13:11 Antibody Screen Negative 04/06/19 13:11 Active Medications - Current Medications Current Medications: Generic Name Dose Route Start Last Admin Trade Name Freq PRN Reason Stop Dose Admin Acetaminophen 650 mg 04/06/19 21:05 Tylenol PO Q4H PRN Pain MILD(1-3)/Fever >100.5/SEYMOUR Hydralazine HCl 20 mg 04/07/19 06:28 Apresoline IV Q3H PRN Blood Pressure Hydromorphone HCl 0.5 mg 04/06/19 21:05 Dilaudid IV Q3H PRN Pain , Severe (7-10) Sodium Chloride 100 mls @ 999 mls/hr 04/06/19 16:14 Nacl 0.9% IV MARCELA PRN Hypotension Insulin Human Lispro 0 unit 04/07/19 07:00 04/08/19 06:26 Humalog SUB-Q Not Given Q6HR [facility] Protocol Metoclopramide HCl 5 mg 04/06/19 21:11 Reglan IV Q6H PRN Nausea And Vomiting Ondansetron HCl 4 mg 04/06/19 21:05 Zofran IV Q8H PRN Nausea And Vomiting Pantoprazole Sodium 40 mg 04/06/19 22:00 04/08/19 10:23 Protonix IV 40 mg BID ROSELINE Administration Promethazine HCl 25 mg 04/06/19 21:05 Phenergan [place] Q6H PRN N/V IF NPO AND NO IV ACCESS Sodium Chloride 10 ml 04/06/19 22:00 04/08/19 10:23 Sodium Chloride Flush Syringe 10 Ml IV 10 ml BID ROSELINE Administration Sodium Chloride 10 ml 04/06/19 21:05 Sodium Chloride Flush Syringe 10 Ml IV PRN PRN LINE FLUSH
[2019-04-08] MEDS ORDERED: PANTOPRAZOLE 40 MG TAB PO SCH (12:00)
[2019-04-08] MEDS: THIAMINE 100 MG TAB PO SCH (14:14)
[2019-04-08] MEDS: POLYETHYLENE GLYCOL 3350 17 GM POWDER PO SCH (14:14)
[2019-04-08 14:15] LABS: Hematocrit 23.9 % (30.3-42.9); Hemoglobin 7.8 gm/dl (10.1-14.3)
--- NOTE | 2019-04-08 15:06 | Gastroenterology Progress Note ---
Assessment and Plan This is a 58 yo female with pmh of ESRD on HD, CHF, CVA, chronic anemia, DM, Schizophrenia, ascites (2/2 poor nutrition/ESRD, no evidence of liver disease), and recent admission for upper GI bleed admitted from [place] for nausea/vomiting and reports of hematemesis. # Nausea/vomiting/hematemesis. - reports of hematemesis at [place]. - no recurrent episode or nausea/vomiting since admission and tolerating clear liquids. - no reports of melena or blood per rectum. - HD stable. - Hgb at 9 on admission, higher than her previous discharge H/H, trended down to 7 and stable today. - She has undergone multiple EGDs with EGD 02/13/19 showing large 4cm ulcer on lesser curve (bx negative; negative colonoscopy at [facility] per pt report 01/2019), and is s/p empiric embolization of Left gastric artery by IR 02/10/19. repeat EGD 03/01/19 that showed ulcerative esophagitis with adherent clot with underlying oozing of blood (clip x 1 with hemostasis), and large ulcer along lesser curvature as seen on prior endoscopy with necrosis appearance but no high risk bleeding lesions. - no signs of active bleeding at this time. Rec - continue with PPI IV - monitor H/H. - discussed with patient and family regarding possible EGD tomorrow in case of further drop in H/H or signs of active bleeding. - cont with clear liquid diet. Subjective Date of service: 04/08/19 Principal diagnosis: ESRD Interval history: She is more alert today. She denies any abdominal pain, nausea/vomiting. No BM per nursing. Objective - Constitutional Vitals: Temp Pulse Resp BP Pulse Ox 98.1 F 97 H 16 111/75 97 04/08/19 12:16 04/08/19 12:16 04/08/19 12:16 04/08/19 12:16 04/08/19 12:16 General appearance: no acute distress - EENT Eyes: EOM intact ENT: hearing intact - Neck Neck: supple - Respiratory Respiratory effort: normal - Cardiovascular Rhythm: regular Heart Sounds: Present: S1 & S2 - Gastrointestinal General gastrointestinal: Present: soft, non-tender, non-distended - Integumentary Integumentary: Present: clear, warm - Labs CBC & Chem 7: 04/08/19 13:27 04/07/19 05:00 Labs: Laboratory Results - last 24 hr 04/07/19 04/08/19 04/08/19 16:54 00:28 06:12 WBC RBC Hgb Hct MCV MCH MCHC RDW Plt Count POC Glucose 155 H 143 H 103 04/08/19 04/08/19 04/08/19 06:15 11:24 13:27 WBC 4.5 RBC 2.74 L Hgb 7.5 L 7.8 L Hct 23.2 L D 23.9 L MCV 85 MCH 28 MCHC 33 RDW 15.9 H Plt Count 78 L POC Glucose 115 H
[2019-04-08] MEDS ORDERED: LANSOPRAZOLE 30 MG SOLUTAB FEEDTUBE SCH (22:00)
[2019-04-09] MEDS: INSULIN LISPRO 100 UNIT/ML SUB-Q SCH ×4 (06:40→17:00)
[2019-04-09 07:29] LABS: Basophils % (Auto) 0.3 % (0.0-1.8); Hematocrit 24.1 % (30.3-42.9); Hemoglobin 7.7 gm/dl (10.1-14.3); Lymphocytes # (Auto) 0.8 K/mm3 (1.2-5.4); Lymphocytes % (Auto) 19.7 % (13.4-35.0); Mean Corpuscular HGB Conc 32 % (30-34); Mean Corpuscular Volume 85 fl (79-97); Monocytes # (Auto) 0.1 K/mm3 (0.0-0.8); Monocytes % (Auto) 3.3 % (0.0-7.3); Red Blood Count 2.83 M/mm3 (3.65-5.03)
[2019-04-09 07:40] LABS: Calcium 7.9 mg/dL (8.4-10.2)
[2019-04-09 08:08] LABS: Platelet Count 76 K/mm3 (140-440)
[2019-04-09] MEDS ORDERED: SODIUM CHLORIDE 0.9% 100 ML IV PRN (09:30)
--- NOTE | 2019-04-09 09:52 | Progress Note ---
Assessment and Plan - Patient Problems (1) Hyperkalemia Current Visit: Yes Status: Acute Plan to address problem: K normalized with HD. cont 2 g K renal diet (2) ESRD (end stage renal disease) on dialysis Current Visit: Yes Status: Chronic Plan to address problem: cont HD on MWF schedule (3) Hepatitis C Current Visit: No Status: Acute Plan to address problem: follow GI recommendations (4) Type 2 diabetes mellitus with diabetic chronic kidney disease Current Visit: Yes Status: Chronic Qualifiers: Chronic kidney disease stage: on chronic dialysis Plan to address problem: DM management as per primary attending (5) Hematemesis Current Visit: Yes Status: Acute Qualifiers: Nausea presence: unspecified Qualified Code(s): K92.0 - Hematemesis Plan to address problem: management as per GI (6) Acute blood loss anemia Current Visit: No Status: Acute Plan to address problem: transfuse with 1PRBC if Hb < 7. start EPO with HD. further management as per GI Subjective Date of service: 04/09/19 Principal diagnosis: ESRD Interval history: pt awake, alert, in no acute respiratory distress Objective - Vital Signs Vital signs: Vital Signs - 12hr 04/08/19 04/08/19 04/09/19 23:03 23:16 03:40 Temperature 97.6 F 97.4 F L Pulse Rate 97 H 95 H 96 H Respiratory 16 18 Rate Blood Pressure 109/74 116/78 O2 Sat by Pulse 98 98 97 Oximetry - General Appearance General appearance: cachectic, chronically ill, fatigue, frail EENT: ATNC, PERRL, mucous membranes moist Neck: no JVD Respiratory: Present: Clear to Ascultation Cardiology: regular, S1S2 Gastrointestinal: normoactive bowel sounds Integumentary: no rash, other (no edema ) Neurologic: no focal deficit, alert and oriented x3, strength 5/5, CN 3-12 intact Psychiatric: mood/affect appropriate, cooperative - Lab 04/09/19 06:59 04/09/19 06:59 Most recent lab results Calcium 7.9 mg/dL (8.4-10.2) L 04/09/19 06:59 Medications & Allergies - Medications Allergies/Adverse Reactions: Allergies guaifenesin [From Robitussin] Allergy (Verified 02/09/19 07:00) Hives Penicillins Allergy (Verified 02/09/19 07:00) Hives Home Medications: Home Medications Medication Instructions Recorded Confirmed Last Taken Type Acetaminophen [Acetaminophen TAB] 650 mg PO Q12HR PRN 02/09/19 04/09/19 04/05/19 History Polyethylene Glycol 3350 [Miralax 17 gm PO QDAY 02/09/19 04/09/19 04/05/19 History 3350] Albuterol Sulfate [Proair 2 puff IH Q6HR PRN 02/28/19 04/09/19 04/05/19 History Respiclick] Amlodipine Besylate [Norvasc] 10 mg PO DAILY 02/28/19 04/09/19 04/05/19 History Antifungal 1% CREAM 1 pack TP DAILY 02/28/19 04/09/19 04/05/19 History Calcium Acetate [Phoslo] 667 mg PO TID 02/28/19 04/09/19 04/05/19 History Ferrous Sulfate [Feosol 325 MG tab] 325 mg PO BID 02/28/19 04/09/19 04/05/19 History Folic Acid [Folvite] 1 mg PO QDAY 02/28/19 04/09/19 04/05/19 History Glucagon (Human Recomb) [Glucagen] 1 mg IM Q15MIN PRN 02/28/19 04/09/19 04/05/19 History Insulin Lispro [Humalog 100 100 unit SQ PRN PRN 02/28/19 04/09/19 04/05/19 History UNITS/ML Kwikpen] Levothyroxine [Synthroid] 150 mcg PO QAM 02/28/19 04/09/19 04/05/19 History PARoxetine HCl [PARoxetine] 20 mg PO HS 02/28/19 04/09/19 04/05/19 History Sennosides Tab [Senokot] 1 tab PO HS PRN 02/28/19 04/09/19 04/05/19 History Thiamine [Vitamin B-1] 100 mg PO QDAY 02/28/19 04/09/19 04/05/19 History risperiDONE [Risperdal] 2 mg PO DAILY 02/28/19 04/09/19 04/05/19 History Pantoprazole [Protonix TAB] 40 mg PO BID 60 Days tablet 03/06/19 04/09/19 Rx Active Medications: Generic Name Dose Route Start Last Admin Trade Name Freq PRN Reason Stop Dose Admin Acetaminophen 650 mg 04/06/19 21:05 Tylenol PO Q4H PRN Pain MILD(1-3)/Fever >100.5/SEYMOUR Hydralazine HCl 20 mg 04/07/19 06:28 Apresoline IV Q3H PRN Blood Pressure Hydromorphone HCl 0.5 mg 04/06/19 21:05 Dilaudid IV Q3H PRN Pain , Severe (7-10) Sodium Chloride 100 mls @ 999 mls/hr 04/09/19 09:30 Nacl 0.9% IV MARCELA PRN Hypotension Insulin Human Lispro 0 unit 04/07/19 07:00 04/09/19 06:40 Humalog SUB-Q Not Given Q6HR ROSELINE Protocol Metoclopramide HCl 5 mg 04/06/19 21:11 Reglan IV Q6H PRN Nausea And Vomiting Ondansetron HCl 4 mg 04/06/19 21:05 Zofran IV Q8H PRN Nausea And Vomiting Pantoprazole Sodium 40 mg 04/09/19 10:00 Protonix IV BID ROSELINE Polyethylene Glycol 17 gm 04/08/19 12:00 04/08/19 14:14 Miralax 3350 PO 17 gm QDAY ROSELINE Administration Promethazine HCl 25 mg 04/06/19 21:05 Phenergan [place] Q6H PRN N/V IF NPO AND NO IV ACCESS Senna 8.6 mg 04/08/19 11:21 Senokot PO HS PRN Constipation Sodium Chloride 10 ml 04/06/19 22:00 04/08/19 21:36 Sodium Chloride Flush Syringe 10 Ml IV 10 ml BID ROSELINE Administration Sodium Chloride 10 ml 04/06/19 21:05 Sodium Chloride Flush Syringe 10 Ml IV PRN PRN LINE FLUSH Thiamine HCl 100 mg 04/08/19 12:00 04/08/19 14:14 Vitamin B-1 PO 100 mg QDAY ROSELINE Administration
[2019-04-09] MEDS ORDERED: EPOETIN ALFA 10,000 UNIT/1 ML INJ SUB-Q SCH (10:00)
[2019-04-09] MEDS: POLYETHYLENE GLYCOL 3350 17 GM POWDER PO SCH (10:05)
[2019-04-09] MEDS: THIAMINE 100 MG TAB PO SCH (10:05)
[2019-04-09] MEDS: PANTOPRAZOLE 40 MG INJ IV SCH ×2 (10:17→21:54)
--- NOTE | 2019-04-09 11:16 | Gastroenterology Progress Note ---
Assessment and Plan This is a 58 yo female with pmh of ESRD on HD, CHF, CVA, chronic anemia, DM, Schizophrenia, ascites (2/2 poor nutrition/ESRD, no evidence of liver disease), and recent admission for upper GI bleed admitted from [place] for nausea/vomiting and reports of hematemesis. 1.hematemesis 2.recurrent UGIB 3.acute on chronic anemia -H/H 7.7/24.1-stable -continue to monitor H/H and transfuse as needed to keep hgb>7 -no active signs of bleeding overnight or this am per nursing -s/p empiric embolization of L gastric artery 02/10 -EGD 02/13/19 revealed large ulcer (4cm) on lesser curve; no visible vessel, mild gastritis, and small hiatal hernia (bx negative for H.pylori/malignancy) -s/p repeat EGD 03/01/19 that showed ulcerative esophagitis with adherent clot with underlying oozing of blood (clip x 1 with hemostasis), and large ulcer along lesser curvature as seen on prior endoscopy with necrosis appearance but no high risk bleeding lesions -negative colonoscopy at [place] per pt report 01/2019 -clinically, patient is currently HD stable with no active signs of bleeding this am. -no plan for repeat scope at this time will consider based on clinical course -okay to start on full liquids -continue PPI IV BID -continue to trend labs and supportive care -will follow Subjective Date of service: 04/09/19 Principal diagnosis: GI bleed/hematemesis Interval history: No acute distress or active signs of bleeding overnight or this am per nursing. Objective - Constitutional Vitals: Temp Pulse Resp BP Pulse Ox 97.4 F L 96 H 18 116/78 97 04/09/19 03:40 04/09/19 03:40 04/09/19 03:40 04/09/19 03:40 04/09/19 03:40 General appearance: no acute distress - Respiratory Respiratory effort: normal - Cardiovascular Rhythm: regular - Gastrointestinal General gastrointestinal: Present: soft, non-tender, distended (slightly), n ormal bowel sounds - Labs CBC & Chem 7: 04/09/19 06:59 04/09/19 06:59 Labs: Laboratory Results - last 24 hr 04/08/19 04/08/19 04/08/19 11:24 13:27 16:53 WBC RBC Hgb 7.8 L Hct 23.9 L MCV MCH MCHC RDW Plt Count Lymph % (Auto) [place] % (Auto) Eos % (Auto) Baso % (Auto) Lymph # [place] # Eos # Baso # Seg Neutrophils % Seg Neutrophils # Sodium Potassium Chloride Carbon Dioxide Anion Gap BUN Creatinine Estimated GFR BUN/Creatinine Ratio Glucose POC Glucose 115 H 111 H Calcium 04/08/19 04/09/19 04/09/19 23:14 06:18 06:59 WBC RBC Hgb Hct MCV MCH MCHC RDW Plt Count Lymph % (Auto) [place] % (Auto) Eos % (Auto) Baso % (Auto) Lymph # [place] # Eos # Baso # Seg Neutrophils % Seg Neutrophils # Sodium 137 Potassium 4.4 Chloride 98.5 Carbon Dioxide 27 Anion Gap 16 BUN 33 H Creatinine 2.9 H Estimated GFR 20 BUN/Creatinine Ratio 11 Glucose 59 L POC Glucose 90 62 L Calcium 7.9 L 04/09/19 06:59 WBC 4.2 L RBC 2.83 L Hgb 7.7 L Hct 24.1 L MCV 85 MCH 27 L MCHC 32 RDW 16.0 H Plt Count 76 L Lymph % (Auto) 19.7 [place] % (Auto) 3.3 Eos % (Auto) 0.0 Baso % (Auto) 0.3 Lymph # 0.8 L [place] # 0.1 Eos # 0.0 Baso # 0.0 Seg Neutrophils % 76.7 H Seg Neutrophils # 3.2 Sodium Potassium Chloride Carbon Dioxide Anion Gap BUN Creatinine Estimated GFR BUN/Creatinine Ratio Glucose POC Glucose Calcium
--- NOTE | 2019-04-09 11:45 | Discharge Summary ---
Providers - Providers Date of Admission: 04/06/19 15:17 Attending physician: MARK THOMPSON MD 04/06/19 12:19 Consult to PICC Line RN [CONS] Stat Reason For Exam: Difficult access Type Line:: PICC 04/06/19 15:06 Consult to Physician [CONS] Routine Comment: Dr. Morillo spoke with Dr. Todd @ 3100 Consulting Provider: NICOLE TODD Physician Instructions: Reason For Exam: ESRD on HD, Hyperkalemia Consult to Physician [CONS] Routine Comment: Dr. Morillo spoke with Dr. May @ 3700 Consulting Provider: MARJORIE MAY Physician Instructions: Reason For Exam: GI bleed, hematemesis 04/07/19 10:31 Speech Therapy Evaluation and Treat [CONS] Urgent Reason For Exam: coughing with thin liquid Primary care physician: CAUL FAT PULLER Hospitalization Condition: Serious Hospital course: 58-year-old -[place]aur[place] female was presented from the [facility] for the complaints of vomiting blood since last night patient had history of congestive heart failure, hypertension, previous CVA and hypothyroidism Upper GI bleed/peptic ulcer disease Patient has history of multiple peptic ulcers. Bleeding resolved without any specific intervention. She was seen by GI. They recommended continuing PPI Hemoglobin was stable Hyperkalemia - Patient was treated with hyperkalemia cocktail - Potassium was corrected End-stage renal disease on hemodialysis with fluid overload - Nephrology is consulted for continuing dialysis COPD - Continue DuoNebs, stable Hypothyroidism - Continue Synthroid Diabetes mellitus -Sliding-scale insulin, ADA diet, Accu-Chek Thrombocytopenia Chronic, platelet count in the 60s/70s. Continue to monitor Disposition: [id number]-[facility] Time spent for discharge: 35 minutes Core Measure Documentation - Palliative Care Palliative Care/ Comfort Measures: Not Applicable - Core Measures Any of the following diagnoses?: none Exam - Constitutional Vitals: Temp Pulse Resp BP Pulse Ox 97.4 F L 96 H 18 116/78 97 04/09/19 03:40 04/09/19 03:40 04/09/19 03:40 04/09/19 03:40 04/09/19 03:40 General appearance: Present: no acute distress, well-nourished - EENT Eyes: Present: PERRL ENT: hearing intact, clear oral mucosa - Neck Neck: Present: supple, normal ROM - Respiratory Respiratory effort: normal Respiratory: bilateral: CTA - Cardiovascular Heart Sounds: Present: S1 & S2. Absent: rub, click - Extremities Extremities: pulses symmetrical, No edema Peripheral Pulses: within normal limits - Abdominal General gastrointestinal: Present: soft, non-tender, non-distended, normal bowel sounds Female genitourinary: Present: normal - Integumentary Integumentary: Present: clear, warm, dry - Musculoskeletal Musculoskeletal: gait normal, strength equal bilaterally - Psychiatric Psychiatric: no intact judgment & insight, no memory intact, cooperative - Neurologic Neurologic: CNII-XII intact, moves all extremities Plan Follow up with: PRIMARY CARE, [Primary Care Provider] - 3-5 Days
--- NOTE | 2019-04-09 11:46 | Progress Note ---
Assessment and Plan Assessment and plan: Thrombocytopenia - Platelet count of 78 this morning - Continue to monitor, no overt bleeding Original Note: Assessment and Plan Assessment and plan: 58-year-old -[place] female was presented from the [place] [facility] for the complaints of vomiting blood since last night patient had history of congestive heart failure, hypertension, previous CVA and hypothyroidism Upper GI bleed - That is a significant hemoglobin drop from yesterday from 9.7 to 7.5 - GI consulted and recommendations noted, said will consider EGD if patient has further bleeding or drop in H/H - On IV Protonix Hyperkalemia - Patient was treated with hyperkalemia cocktail - Potassium was corrected End-stage renal disease on hemodialysis - Nephrology is consulted for continuing dialysis COPD - Continue DuoNebs, stable Hypothyroidism - Continue Synthroid Diabetes mellitus -Sliding-scale insulin, ADA diet, Accu-Chek Hypothermia - Patient is on perico hugger - No sign of infection DVT prophylaxis - Heparin Disposition continue inpatient care. patient may need EGD. History Interval history: Patient was seen and evaluated this morning, patient was alert and oriented. Patient didn't have any complaints, no vomiting of blood overnight. Hospitalist Physical - Physical exam Narrative exam: Not in cardiopulmonary distress. The patient appeared well nourished and normally developed. Vital signs as documented. Head exam is unremarkable. No scleral icterus . Neck is without jugular venous distension, thyromegaly, or carotid bruits. Lungs are clear to auscultation. Cardiac exam reveals regular rate and Rhythm. Abdominal exam reveals ascites. Extremities bilateral lower extremity edema. 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 Hospitalist Physical - Constitutional Vitals: Temp Pulse Resp BP Pulse Ox 97.4 F L 96 H 18 116/78 97 04/09/19 03:40 04/09/19 03:40 04/09/19 03:40 04/09/19 03:40 04/09/19 03:40 Results - Labs CBC & Chem 7: 04/09/19 06:59 04/09/19 06:59 Labs: Laboratory Last Values WBC 4.2 K/mm3 (4.5-11.0) L 04/09/19 06:59 RBC 2.83 M/mm3 (3.65-5.03) L 04/09/19 06:59 Hgb 7.7 gm/dl (10.1-14.3) L 04/09/19 06:59 Hct 24.1 % (30.3-42.9) L 04/09/19 06:59 MCV 85 fl (79-97) 04/09/19 06:59 MCH 27 pg (28-32) L 04/09/19 06:59 MCHC 32 % (30-34) 04/09/19 06:59 RDW 16.0 % (13.2-15.2) H 04/09/19 06:59 Plt Count 76 K/mm3 (140-440) L 04/09/19 06:59 Lymph % (Auto) 19.7 % (13.4-35.0) 04/09/19 06:59 [place] % (Auto) 3.3 % (0.0-7.3) 04/09/19 06:59 Eos % (Auto) 0.0 % (0.0-4.3) 04/09/19 06:59 Baso % (Auto) 0.3 % (0.0-1.8) 04/09/19 06:59 Lymph # 0.8 K/mm3 (1.2-5.4) L 04/09/19 06:59 [place] # 0.1 K/mm3 (0.0-0.8) 04/09/19 06:59 Eos # 0.0 K/mm3 (0.0-0.4) 04/09/19 06:59 Baso # 0.0 K/mm3 (0.0-0.1) 04/09/19 06:59 Seg Neutrophils % 76.7 % (40.0-70.0) H 04/09/19 06:59 Seg Neutrophils # 3.2 K/mm3 (1.8-7.7) 04/09/19 06:59 PT 15.4 Sec. (12.2-14.9) H 04/06/19 14:43 INR 1.25 (0.87-1.13) H 04/06/19 14:43 APTT 46.0 Sec. (24.2-36.6) H 04/06/19 14:43 Sodium 137 mmol/L (137-145) 04/09/19 06:59 Potassium 4.4 mmol/L (3.6-5.0) 04/09/19 06:59 Chloride 98.5 mmol/L (98-107) 04/09/19 06:59 Carbon Dioxide 27 mmol/L (22-30) 04/09/19 06:59 Anion Gap 16 mmol/L 04/09/19 06:59 BUN 33 mg/dL (7-17) H 04/09/19 06:59 Creatinine 2.9 mg/dL (0.7-1.2) H 04/09/19 06:59 Estimated GFR 20 ml/min 04/09/19 06:59 BUN/Creatinine Ratio 11 % 04/09/19 06:59 Glucose 59 mg/dL (65-100) L 04/09/19 06:59 POC Glucose 62 (70-105) L 04/09/19 06:18 Hemoglobin A1c 5.1 % (4-6) 04/06/19 22:46 Calcium 7.9 mg/dL (8.4-10.2) L 04/09/19 06:59 Total Bilirubin 0.40 mg/dL (0.1-1.2) 04/07/19 05:00 AST 41 units/L (5-40) H 04/07/19 05:00 ALT 26 units/L (7-56) 04/07/19 05:00 Alkaline Phosphatase 52 units/L (35-129) 04/07/19 05:00 Ammonia 19.0 umol/L (25-60) L 04/07/19 11:02 Total Protein 5.9 g/dL (6.3-8.2) L 04/07/19 05:00 Albumin 2.4 g/dL (3.9-5) L 04/07/19 05:00 Albumin/Globulin Ratio 0.7 % 04/07/19 05:00 Hepatitis A IgM Ab Non-reactive (NonReactive) 04/06/19 16:28 Hep Bs Antigen Non-reactive (Negative) 04/06/19 16:28 Hep B Core IgM Ab Non-reactive (NonReactive) 04/06/19 16:28 Hepatitis C Antibody Non-reactive (NonReactive) 04/06/19 16:28 Blood Type B POSITIVE 04/06/19 13:11 Antibody Screen Negative 04/06/19 13:11 Active Medications - Current Medications Current Medications: Generic Name Dose Route Start Last Admin Trade Name Andry PRN Reason Stop Dose Admin Acetaminophen 650 mg 04/06/19 21:05 Tylenol PO Q4H PRN Pain MILD(1-3)/Fever >100.5/SEYMOUR Epoetin Jean [place] 10,000 unit 04/09/19 10:00 Procrit SUB-Q 04/19/19 09:59 MARCELA ROSELINE Hydralazine HCl 20 mg 04/07/19 06:28 Apresoline IV Q3H PRN Blood Pressure Hydromorphone HCl 0.5 mg 04/06/19 21:05 Dilaudid IV Q3H PRN Pain , Severe (7-10) Sodium Chloride 100 mls @ 999 mls/hr 04/09/19 09:30 Nacl 0.9% IV MARCELA PRN Hypotension Insulin Human Lispro 0 unit 04/07/19 07:00 04/09/19 06:40 Humalog SUB-Q Not Given Q6HR [facility] Protocol Metoclopramide HCl 5 mg 04/06/19 21:11 Reglan IV Q6H PRN Nausea And Vomiting Ondansetron HCl 4 mg 04/06/19 21:05 Zofran IV Q8H PRN Nausea And Vomiting Pantoprazole Sodium 40 mg 04/09/19 10:00 04/09/19 10:17 Protonix IV 40 mg BID ROSELINE Administration Polyethylene Glycol 17 gm 04/08/19 12:00 04/09/19 10:05 Miralax 3350 PO 17 gm QDAY ROSELINE Administration Promethazine HCl 25 mg 04/06/19 21:05 Phenergan IN Q6H PRN N/V IF NPO AND NO IV ACCESS Senna 8.6 mg 04/08/19 11:21 Senokot PO HS PRN Constipation Sodium Chloride 10 ml 04/06/19 22:00 04/09/19 10:05 Sodium Chloride Flush Syringe 10 Ml IV 10 ml BID ROSELINE Administration Sodium Chloride 10 ml 04/06/19 21:05 Sodium Chloride Flush Syringe 10 Ml IV PRN PRN LINE FLUSH Thiamine HCl 100 mg 04/08/19 12:00 04/09/19 10:05 Vitamin B-1 PO 100 mg QDAY ROSELINE Administration
[2019-04-09] MEDS ORDERED: SODIUM CHLORIDE*PRIMING MACHINE ONLY FOR DIALYSIS MC ONE (14:06)
[2019-04-10] MEDS: INSULIN LISPRO 100 UNIT/ML SUB-Q SCH ×3 (00:35→13:49)
[2019-04-10 07:05] LABS: Basophils % (Auto) 0.3 % (0.0-1.8); Hematocrit 21.9 % (30.3-42.9); Hemoglobin 7.1 gm/dl (10.1-14.3); Lymphocytes % (Auto) 20.6 % (13.4-35.0); Mean Corpuscular HGB Conc 33 % (30-34); Mean Corpuscular Volume 84 fl (79-97); Monocytes # (Auto) 0.2 K/mm3 (0.0-0.8); Monocytes % (Auto) 3.1 % (0.0-7.3); Red Cell Distribution Width 15.5 % (13.2-15.2)
[2019-04-10 07:18] LABS: Platelet Count 69 K/mm3 (140-440)
[2019-04-10] MEDS: POLYETHYLENE GLYCOL 3350 17 GM POWDER PO SCH (09:33)
[2019-04-10] MEDS: PANTOPRAZOLE 40 MG INJ IV SCH (09:33)
[2019-04-10] MEDS: THIAMINE 100 MG TAB PO SCH (09:33)
--- NOTE | 2019-04-10 09:43 | Progress Note ---
Assessment and Plan - Patient Problems (1) Hyperkalemia Current Visit: Yes Status: Acute Plan to address problem: K normalized with HD. cont 2 g K renal diet (2) ESRD (end stage renal disease) on dialysis Current Visit: Yes Status: Chronic Plan to address problem: cont HD on MWF schedule (3) Type 2 diabetes mellitus with diabetic chronic kidney disease Current Visit: Yes Status: Chronic Qualifiers: Chronic kidney disease stage: on chronic dialysis Plan to address problem: DM management as per primary attending (4) Acute blood loss anemia Current Visit: No Status: Acute Plan to address problem: transfuse with 1PRBC if Hb < 7. cont EPO with HD. further management as per GI (5) Hepatitis C Current Visit: No Status: Acute Plan to address problem: follow GI recommendations Subjective Date of service: 04/10/19 Principal diagnosis: GI bleed/hematemesis Interval history: pt awake, alert, in no acute respiratory distress Objective - Vital Signs Vital signs: Vital Signs - 12hr 04/09/19 04/10/19 23:54 05:59 Temperature 97.4 F L 98.0 F Pulse Rate 84 88 Respiratory 15 15 Rate Blood Pressure 117/74 108/79 O2 Sat by Pulse 95 96 Oximetry - General Appearance General appearance: cachectic, chronically ill, frail EENT: ATNC, PERRL, mucous membranes moist Neck: no JVD Respiratory: Present: Decreased Breath Sounds Cardiology: regular, S1S2 Gastrointestinal: normoactive bowel sounds, distended Integumentary: no rash, other (++ edema b/l LE ) Neurologic: no focal deficit, alert and oriented x3, strength 5/5, CN 3-12 intact Psychiatric: mood/affect appropriate, cooperative - Lab 04/10/19 06:47 04/09/19 06:59 Most recent lab results Calcium 7.9 mg/dL (8.4-10.2) L 04/09/19 06:59 Medications & Allergies - Medications Allergies/Adverse Reactions: Allergies guaifenesin [From Robitussin] Allergy (Verified 02/09/19 07:00) Hives Penicillins Allergy (Verified 02/09/19 07:00) Hives Home Medications: Home Medications Medication Instructions Recorded Confirmed Last Taken Type Acetaminophen [Acetaminophen TAB] 650 mg PO Q12HR PRN 02/09/19 04/09/19 04/05/19 History Polyethylene Glycol 3350 [Miralax 17 gm PO QDAY 02/09/19 04/09/19 04/05/19 History 3350] Albuterol Sulfate [Proair 2 puff IH Q6HR PRN 02/28/19 04/09/19 04/05/19 History Respiclick] Amlodipine Besylate [Norvasc] 10 mg PO DAILY 02/28/19 04/09/19 04/05/19 History Antifungal 1% CREAM 1 pack TP DAILY 02/28/19 04/09/19 04/05/19 History Calcium Acetate [Phoslo] 667 mg PO TID 02/28/19 04/09/19 04/05/19 History Ferrous Sulfate [Feosol 325 MG tab] 325 mg PO BID 02/28/19 04/09/19 04/05/19 History Folic Acid [Folvite] 1 mg PO QDAY 02/28/19 04/09/19 04/05/19 History Glucagon (Human Recomb) [Glucagen] 1 mg IM Q15MIN PRN 02/28/19 04/09/19 04/05/19 History Insulin Lispro [Humalog 100 100 unit SQ PRN PRN 02/28/19 04/09/19 04/05/19 History UNITS/ML Kwikpen] Levothyroxine [Synthroid] 150 mcg PO QAM 02/28/19 04/09/19 04/05/19 History PARoxetine HCl [PARoxetine] 20 mg PO HS 02/28/19 04/09/19 04/05/19 History Sennosides Tab [Senokot] 1 tab PO HS PRN 02/28/19 04/09/19 04/05/19 History Thiamine [Vitamin B-1] 100 mg PO QDAY 02/28/19 04/09/19 04/05/19 History risperiDONE [Risperdal] 2 mg PO DAILY 02/28/19 04/09/19 04/05/19 History Pantoprazole [Protonix TAB] 40 mg PO BID 60 Days tablet 03/06/19 04/09/19 04/05/19 Rx Active Medications: Generic Name Dose Route Start Last Admin Trade Name Freq PRN Reason Stop Dose Admin Acetaminophen 650 mg 04/06/19 21:05 Tylenol PO Q4H PRN Pain MILD(1-3)/Fever >100.5/SEYMOUR Epoetin [place] 10,000 unit 04/09/19 10:00 04/09/19 14:00 Procrit SUB-Q 04/19/19 09:59 10,000 unit MARCELA ROSELINE Administration Hydralazine HCl 20 mg 04/07/19 06:28 Apresoline IV Q3H PRN Blood Pressure Hydromorphone HCl 0.5 mg 04/06/19 21:05 Dilaudid IV Q3H PRN Pain , Severe (7-10) Sodium Chloride 100 mls @ 999 mls/hr 04/09/19 09:30 Nacl 0.9% IV MARCELA PRN Hypotension Insulin Human Lispro 0 unit 04/07/19 07:00 04/10/19 07:47 Humalog SUB-Q Not Given Q6HR [facility] Protocol Metoclopramide HCl 5 mg 04/06/19 21:11 Reglan IV Q6H PRN Nausea And Vomiting Ondansetron HCl 4 mg 04/06/19 21:05 Zofran IV Q8H PRN Nausea And Vomiting Pantoprazole Sodium 40 mg 04/09/19 10:00 04/10/19 09:33 Protonix IV 40 mg BID ROSELINE Administration Polyethylene Glycol 17 gm 04/08/19 12:00 04/10/19 09:33 Miralax 3350 PO 17 gm QDAY ROSELINE Administration Promethazine HCl 25 mg 04/06/19 21:05 Phenergan PA Q6H PRN N/V IF NPO AND NO IV ACCESS Senna 8.6 mg 04/08/19 11:21 Senokot PO HS PRN Constipation Sodium Chloride 10 ml 04/06/19 22:00 04/10/19 09:33 Sodium Chloride Flush Syringe 10 Ml IV 10 ml BID ROSELINE Administration Sodium Chloride 10 ml 04/06/19 21:05 Sodium Chloride Flush Syringe 10 Ml IV PRN PRN LINE FLUSH Thiamine HCl 100 mg 04/08/19 12:00 04/10/19 09:33 Vitamin B-1 PO 100 mg QDAY ROSELINE Administration
--- NOTE | 2019-04-10 11:32 | Gastroenterology Progress Note ---
Assessment and Plan This is a 58 yo female with pmh of ESRD on HD, CHF, CVA, chronic anemia, DM, Schizophrenia, ascites (2/2 poor nutrition/ESRD, no evidence of liver disease), and recent admission for upper GI bleed admitted from [place] for nausea/vomiting and reports of hematemesis. 1.hematemesis 2.recurrent UGIB 3.acute on chronic anemia -H/H 7.1.9 -continue to monitor H/H and transfuse as needed to keep hgb>7 -s/p empiric embolization of L gastric artery 02/10 -EGD 02/13/19 revealed large ulcer (4cm) on lesser curve; no visible vessel, mild gastritis, and small hiatal hernia (bx negative for H.pylori/malignancy) -s/p repeat EGD 03/01/19 that showed ulcerative esophagitis with adherent clot with underlying oozing of blood (clip x 1 with hemostasis), and large ulcer along lesser curvature as seen on prior endoscopy with necrosis appearance but no high risk bleeding lesions -negative colonoscopy at [place] per pt report 01/2019 -clinically, patient is stable with no active signs of bleeding this am. Tolerating full liquids. -no plan for repeat scope at this time unless overt signs of bleeding develop. -advance diet as tolerated -start on carafate -continue PPI BID (needs chronic PPI) -continue to trend labs and supportive care -patient okay to be d/c per GI standpoint on above medications with f/u in clinic -will sign off, please call if needed Subjective Date of service: 04/10/19 Principal diagnosis: GI bleed/hematemesis Interval history: No acute distress or active signs of bleeding overnight or this am per nursing. Denies abd pain or N/V. Tolerating full liquids. Objective - Constitutional Vitals: Temp Pulse Resp BP Pulse Ox 98.0 F 88 15 108/79 96 04/10/19 05:59 04/10/19 05:59 04/10/19 05:59 04/10/19 05:59 04/10/19 05:59 General appearance: no acute distress, other - Respiratory Respiratory effort: normal - Cardiovascular Rhythm: regular - Gastrointestinal General gastrointestinal: Present: soft, non-tender, distended (slightly), normal bowel sounds - Neurologic Neurological: alert and oriented x3 - Labs CBC & Chem 7: 04/10/19 06:47 04/09/19 06:59 Labs: Laboratory Results - last 24 hr 04/09/19 04/10/19 04/10/19 16:17 00:01 05:59 WBC RBC Hgb Hct MCV MCH MCHC RDW Plt Count Lymph % (Auto) [place] % (Auto) Eos % (Auto) Baso % (Auto) Lymph # [place] # Eos # Baso # Seg Neutrophils % Seg Neutrophils # POC Glucose 84 75 78 04/10/19 06:47 WBC 5.0 RBC 2.60 L Hgb 7.1 L Hct 21.9 L MCV 84 MCH 28 MCHC 33 RDW 15.5 H Plt Count 69 L Lymph % (Auto) 20.6 [place] % (Auto) 3.1 Eos % (Auto) 0.0 Baso % (Auto) 0.3 Lymph # 1.0 L [place] # 0.2 Eos # 0.0 Baso # 0.0 Seg Neutrophils % 76.0 H Seg Neutrophils # 3.8 POC Glucose
[2019-04-10] MEDS ORDERED: SUCRALFATE 1 GM TAB PO SCH (12:00)
[2019-04-10 12:42] VITALS: BP 118/81
== END 2019-04-10 15:09 ==
LOC: ED 10:47 → 3A 15:17
PROVIDERS: ADMIT Internal Medicine; ATTEND Internal Medicine
DX: K92.2 Gastrointestinal hemorrhage, unspecified (principal); N18.6 End stage renal disease; E87.5 Hyperkalemia
CPT/HCPCS: 36415; 74022; 80048; 80053; 80074; 82140; 82962; 83036; 85014; 85018; 85025; 85027; 85610; 85730; 86850; 86900; 86901; C9113; G0378; J0885; J7030

== ENCOUNTER 2019-04-11 14:35 | Inpatient (IN) | payer MEDICAID ==
--- NOTE | 2019-04-11 15:41 | Emergency Department Report ---
HPI - General Chief Complaint: GI Bleed Time Seen by Provider: 04/11/19 15:32 - HPI HPI: Pt is a 58 yo female who is sent to us by [facility] for vomiting blood. The pt states she did not vomit blood- her lip was bleeding. Lips dry and chapped. No tachycardia. No hypotension. No cp/sob. No fever or chills. Pt states she woke up late today and did not go to her scheduled HD. Pt has r slcavian dialysis catheter. She does make some urine. She gets HD at [facility] M//F [facility] DM HTN ANEMIA SCHIZO GERD UGIB HPLD HYPTHYROID ESRD HEP C Home meds- see paper chart. ED Past Medical Hx - Past Medical History Previous Medical History?: Yes Hx Hypertension: Yes (HX CHF) Hx CVA: No Hx Heart Attack/AMI: No Hx Congestive Heart Failure: Yes Hx Diabetes: No Hx Deep Vein Thrombosis: No Hx Pulmonary Embolism: No Hx GERD: Yes Hx Liver Disease: Yes (HEP C. 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) Hx Kidney Stones: No Hx Psychiatric Treatment: Yes (major depressive disorder, schizophrenia) Hx Asthma: No Hx COPD: No Hx HIV: No Additional medical history: Cerebral infar, withh thrombosis of left cerebral artery, ESRDulcers of esophagus with bleeding, falls, hyperlipidemia, allergic rhinitis, constipation, anemia, vit D deficiency, hypothyroid, chronic pain, sinuitis, pruitis, didpl unsp condyle fx low end l femur 7th D, Hep C - Surgical History Past Surgical History?: Yes Additional Surgical History: left hip, left leg sx, x3, both feet sx - Family History Family history: no significant - Social History Smoking Status: Never Smoker Substance Use Type: None - Medications Home Medications: Home Medications Medication Instructions Recorded Confirmed Last Taken Type Acetaminophen [Acetaminophen TAB] 650 mg PO Q12HR PRN 02/09/19 04/09/19 04/05/19 History Polyethylene Glycol 3350 [Miralax 17 gm PO QDAY 02/09/19 04/09/19 04/05/19 History 3350] Albuterol Sulfate [Proair 2 puff IH Q6HR PRN 02/28/19 04/09/19 04/05/19 History Respiclick] Antifungal 1% CREAM 1 pack TP DAILY 02/28/19 04/09/19 04/05/19 History Calcium Acetate [Phoslo] 667 mg PO TID 02/28/19 04/09/19 04/05/19 History Ferrous Sulfate [Feosol 325 MG tab] 325 mg PO BID 02/28/19 04/09/19 04/05/19 History Folic Acid [Folvite] 1 mg PO QDAY 02/28/19 04/09/19 04/05/19 History Glucagon (Human Recomb) [Glucagen] 1 mg IM Q15MIN PRN 02/28/19 04/09/19 04/05/19 History Insulin Lispro [Humalog 100 100 unit SQ PRN PRN 02/28/19 04/09/19 04/05/19 History UNITS/ML Kwikpen] Levothyroxine [Synthroid] 150 mcg PO QAM 02/28/19 04/09/19 04/05/19 History PARoxetine HCl [PARoxetine] 20 mg PO HS 02/28/19 04/09/19 04/05/19 History Sennosides Tab [Senokot] 1 tab PO HS PRN 02/28/19 04/09/19 04/05/19 History Thiamine [Vitamin B-1] 100 mg PO QDAY 02/28/19 04/09/19 04/05/19 History risperiDONE [Risperdal] 2 mg PO DAILY 02/28/19 04/09/19 04/05/19 History Pantoprazole [Protonix TAB] 40 mg PO BID 60 Days tablet 03/06/19 04/09/19 04/05/19 Rx ED Review of Systems ROS: Stated complaint: HEMATEMESIS Other details as noted in HPI Comment: All other systems reviewed and negative Physical Exam - Physical Exam Vital Signs: Vital Signs 04/11/19 15:08 Pulse Rate 86 Respiratory 16 Rate Blood Pressure 137/93 O2 Sat by Pulse 100 Oximetry ED Course Vital Signs 04/11/19 15:08 Pulse Rate 86 Respiratory 16 Rate Blood Pressure 137/93 O2 Sat by Pulse 100 Oximetry - Reevaluation(s) Reevaluation #1: 04/11/19 18:[address] WALKER SHE REQUESTS ADMIT TO [facility] HD. Reevaluation #2: 04/11/19 18:50 pt states she was thrown out of her residence and does not know where she will dc to. NOK her mother who lives in [facility] ED Medical Decision Making - Lab Data Result diagrams: 04/11/19 15:40 04/11/19 15:40 - EKG Data -: EKG Interpreted by Me - Radiology Data Radiology results: report reviewed, image reviewed - Medical Decision Making Vital Signs 04/11/19 15:08 Pulse Rate 86 Respiratory 16 Rate Blood Pressure 137/93 O2 Sat by Pulse 100 Oximetry Labs 04/11/19 04/11/19 04/11/19 15:40 15:40 16:36 WBC 6.3 RBC 3.90 Hgb 10.7 D Hct 33.4 D MCV 86 MCH 27 L MCHC 32 RDW 16.1 H Plt Count 71 L Lymph % (Auto) 18.6 [place] % (Auto) 2.5 Eos % (Auto) 0.0 Baso % (Auto) 0.2 Lymph # 1.2 [place] # 0.2 Eos # 0.0 Baso # 0.0 Seg Neutrophils % 78.7 H Seg Neutrophils # 5.0 Sodium 132 L Potassium 5.7 H D Chloride 97.0 L Carbon Dioxide 27 Anion Gap 14 BUN 38 H Creatinine 2.7 H Estimated GFR 22 BUN/Creatinine Ratio 14 Glucose 67 Calcium 7.8 L Total Bilirubin 0.50 AST 461 H ALT 193 H Alkaline Phosphatase 166 H NT-Pro-B Natriuret Pep 61892 H Total Protein 6.5 Albumin 2.6 L Albumin/Globulin Ratio 0.7 Urine Color Yellow Urine Turbidity Cloudy Urine pH 5.0 Ur Specific [place] 1.015 Urine Protein 100 mg/dl Urine Glucose (UA) Neg Urine Ketones Neg Urine Blood Mod Urine Nitrite Neg Urine Bilirubin Neg Urine Urobilinogen < 2.0 Ur Leukocyte Esterase Mod Urine WBC (Auto) 44.0 H Urine RBC (Auto) 12.0 U Epithel Cells (Auto) 1.0 Urine Bacteria (Auto) 4+ Hyaline Casts 2 Urine Mucus Few Urine Yeast (Budding) 1+ pt did not get HD today as scheduled It is unclear to me when she last got HD- she was just dc from the hospital yesterday sp GIB labs noted K- d50/insulin given x 1 12 lead ordered Hgb stable ua noted WBC 44/mod leuks rocephin IV PCN allergy noted will monitor pt will need Rx on dc urine cultures pending chest xray noted pt has no tachycardia or hypertension; she has mild BLE edema and abd she re ports is larger than normal. Pt has had no hemetemesis since in ER. I called pts outpt [facility] clinic they are close tomorrow and the soonest they may be able to do HD is Tuesday; but the pt would have to call her. DISCUSSED WITH NEPHROLOGY- OBS ADMIT TO [facility]; CASE MANAGEMENT CON COURT IN AM. Dr Walker is trying to arrange HD tonight; if staff gone it will be in AM. Dr Trujillo aware of admit [id number]. Dr Branch aware of pt awaiting admit for HD. - Differential Diagnosis ro GIB- volume overload- hyperK Critical care attestation.: If time is entered above; I have spent that time in minutes in the direct care of this critically ill patient, excluding procedure time. ED Disposition Clinical Impression: Hyperkalemia, ESRD (end stage renal disease) on dialysis, Type 2 diabetes mellitus with diabetic chronic kidney disease, Hepatitis C, GERD (gastroesophageal reflux disease) Disposition: [id number] OP ADMIT IP TO THIS HOSP Is pt being admited?: Yes Does the pt Need Aspirin: No Condition: Stable Time of Disposition: 18:39
[2019-04-11 16:09] LABS: Basophils % (Auto) 0.2 % (0.0-1.8); Hematocrit 33.4 % (30.3-42.9); Hemoglobin 10.7 gm/dl (10.1-14.3); Lymphocytes # (Auto) 1.2 K/mm3 (1.2-5.4); Lymphocytes % (Auto) 18.6 % (13.4-35.0); Mean Corpuscular HGB Conc 32 % (30-34); Mean Corpuscular Volume 86 fl (79-97); Monocytes # (Auto) 0.2 K/mm3 (0.0-0.8); Monocytes % (Auto) 2.5 % (0.0-7.3); Red Cell Distribution Width 16.1 % (13.2-15.2)
[2019-04-11 16:24] LABS: Platelet Count 71 K/mm3 (140-440)
[2019-04-11 16:26] LABS: Albumin 2.6 g/dL (3.9-5); Calcium 7.8 mg/dL (8.4-10.2)
--- NOTE | 2019-04-11 16:59 | XRay Report ---
CHEST 1 VIEW INDICATION / CLINICAL INFORMATION: SOB. COMPARISON: 04/06/2019 FINDINGS: SUPPORT DEVICES: Vas-Cath remains in place on the right. HEART / MEDIASTINUM: No significant abnormality. LUNGS / PLEURA: Pleural effusions are again seen with moderate left basilar consolidation. There is s light venous congestion. No pneumothorax. ADDITIONAL FINDINGS: There may be embolization coils over the upper midabdomen. IMPRESSION: 1. No significant change Signer Name: Jaxon Vargas MD Signed: 04/11/2019 4:54 PM Workstation Name: [id number]
[2019-04-11 17:06] LABS: Bacteria,Urine 4+ /HPF (Negative); Bilirubin,Urine NEG (Negative); Blood,Urine MOD (Negative); Color,Urine Yellow (Yellow); Hyaline Casts,Urine 2 /LPF; Mucus,Urine FEW /HPF; Urobilinogen,Urine < 2.0 mg/dL (<2.0)
[2019-04-11] MEDS ORDERED: INSULIN REGULAR, HUMAN 100 UNITS/1 ML IV ONE (17:11)
[2019-04-11] MEDS ORDERED: DEXTROSE 50% IN WATER (25GM) 50 ML SYRINGE IV ONE ×2 (17:12→22:59)
[2019-04-11] MEDS ORDERED: NITROFURANTOIN MONOHYD/M-CRYST 100 MG CAP PO ONE (17:13)
[2019-04-11] MEDS ORDERED: cefTRIAXone/NS 1 GM/50 ML 1 GM/50 ML BAG IV ONE ×2 (18:45→22:25)
[2019-04-11] MEDS ORDERED: DEXTROSE 50% IN WATER (25GM) 50 ML SYRINGE IV PRN (23:44)
[2019-04-11] MEDS ORDERED: SODIUM POLYSTYRENE 15 GM/60 ML ORAL LIQD PO ONE (23:44)
--- NOTE | 2019-04-11 23:45 | History and Physical Report ---
History of Present Illness Date of examination: 04/11/19 History of present illness: 58-year-old woman with a history of CVA, end-stage renal disease on dialysis, sees CHF, hepatitis C, diabetes, hypothyroidism, hypertension, dementia, bipolar was sent to the emergency room because she missed dialysis. Patient is curre ntly very lethargic, unable to give a history. I checked her blood sugar it was 25, will give D50. She had a potassium of 5.7 in the emergency room, insulin was given, she has not eaten since in the ER. Review system is unobtainable PAST MEDICAL HISTORY:CVA, end-stage renal disease on dialysis, sees CHF, hepatitis C, diabetes, hypothyroidism, hypertension, dementia, bipolar PAST SURGICAL HISTORY: Unknown FAMILY HISTORY:Unknown SOCIAL HISTORY: Denies tobacco, drugs, alcohol, ID resident Medications and Allergies Allergies Allergy/AdvReac Type Severity Reaction Status Date / Time guaifenesin [From Robitussin] Allergy Hives Verified 02/09/19 07:00 Penicillins Allergy Hives Verified 02/09/19 07:00 Home Medications Medication Instructions Recorded Confirmed Last Taken Type Acetaminophen [Acetaminophen TAB] 650 mg PO Q12HR PRN 02/09/19 04/11/19 04/05/19 History Polyethylene Glycol 3350 [Miralax 17 gm PO DAILY 02/09/19 04/11/19 04/05/19 History 3350] Albuterol Sulfate [Proair 2 puff IH Q6HR PRN 02/28/19 04/11/19 04/05/19 History Respiclick] Antifungal 1% CREAM 1 pack TP DAILY 02/28/19 04/11/19 04/05/19 History Calcium Acetate [Phoslo] 667 mg PO TID 02/28/19 04/11/19 04/05/19 History Ferrous Sulfate [Feosol 325 MG tab] 325 mg PO BID 02/28/19 04/11/19 04/05/19 History Folic Acid [Folvite] 1 mg PO DAILY 02/28/19 04/11/19 04/05/19 History Glucagon (Human Recomb) [Glucagen] 1 mg IM Q15MIN PRN 02/28/19 04/11/19 04/05/19 History Insulin Lispro [Humalog 100 100 unit SQ PRN PRN 08/04/11/19 04/05/19 History UNITS/ML Kwikpen] Levothyroxine [Synthroid] 150 mcg PO QAM 02/28/19 04/11/19 04/05/19 History PARoxetine HCl [PARoxetine] 20 mg PO HS 02/28/19 04/11/19 04/05/19 History Sennosides Tab [Senokot] 1 tab PO HS PRN 02/28/19 04/11/19 04/05/19 History Thiamine [Vitamin B-1] 100 mg PO DAILY 02/28/19 04/11/19 04/05/19 History risperiDONE [Risperdal] 2 mg PO DAILY 02/28/19 04/11/19 04/05/19 History Pantoprazole [Protonix TAB] 40 mg PO BID 60 Days tablet 03/06/19 04/11/1904/05 Rx Active Meds: Active Medications Sodium Polystyrene Sulfonate (Kionex) 15 gm PO ONCE ONE Stop: 04/11/19 23:45 Exam - Physical Exam Narrative exam: General Apperance: The patient sitting in bed no acute distress HEENT: Normocephalic, atraumatic. Pupils equally round and reactive to light, extraocular movement intact, and no sclericterus or JVD or thyromegaly or nodule. Neck supple, no carotid bruit, mucous membranes moist, no exudate or erythema Heart: S1-S2, regular is rhythm Lungs: Clear to auscultation bilaterally, breathing comfortable Abdomen: Positive bowel sounds, soft, nontender, nondistended, fluid wave, no organomegaly Extremities: 3+ edema up to thighs, no cyanosis clubbing Skin: no rash, nodule, warm and dry Neuro: Difficult to assess speech is fluent - Constitutional Vitals: Temp Pulse Resp BP Pulse Ox 97.6 F 98 H 12 118/75 97 04/11/19 22:00 04/11/19 22:00 04/11/19 22:00 04/11/19 22:00 04/11/19 22:00 Results - Labs CBC & Chem 7: 04/11/19 15:40 04/11/19 15:40 Labs: Abnormal lab results 04/11/19 04/11/19 04/11/19 Range/Units 15:40 15:40 16:36 MCH 27 L (28-32) pg RDW 16.1 H (13.2-15.2) % Plt Count 71 L (140-440) K/mm3 Seg Neutrophils % 78.7 H (40.0-70.0) % Sodium 132 L (137-145) mmol/L Potassium 5.7 H D (3.6-5.0) mmol/L Chloride 97.0 L (98-107) mmol/L BUN 38 H (7-17) mg/dL Creatinine 2.7 H (0.7-1.2) mg/dL POC Glucose (70-105) Calcium 7.8 L (8.4-10.2) mg/dL AST 461 H (5-40) units/L ALT 193 H (7-56) units/L Alkaline Phosphatase 166 H (35-129) units/L NT-Pro-B Natriuret Pep 13834 H (0-900) pg/mL Albumin 2.6 L (3.9-5) g/dL Urine WBC (Auto) 44.0 H (0.0-6.0) /HPF 04/11/19 04/11/19 Range/Units 18:15 23:33 MCH (28-32) pg RDW (13.2-15.2) % Plt Count (140-440) K/mm3 Seg Neutrophils % (40.0-70.0) % Sodium (137-145) mmol/L Potassium (3.6-5.0) mmol/L Chloride (98-107) mmol/L BUN (7-17) mg/dL Creatinine (0.7-1.2) mg/dL POC Glucose 141 H 125 H (70-105) Calcium (8.4-10.2) mg/dL AST (5-40) units/L ALT (7-56) units/L Alkaline Phosphatase (35-129) units/L NT-Pro-B Natriuret Pep (0-900) pg/mL Albumin (3.9-5) g/dL Urine WBC (Auto) (0.0-6.0) /HPF - Imaging and Cardiology EKG: image reviewed Chest x-ray: image reviewed Assessment and Plan Assessment Fluid overload secondary to missed dialysis Hyperkalemia end-stage renal disease on dialysis Hypoglycemia Abnormal LFTs Urinary tract infection CHF hepatitis C diabetes hypothyroidism hypertension dementia bipolar Plan Admit to medicine Renal was consulted for emergent dialysis Give Kayexalate, monitor fingersticks, hold insulin Check CT of abdomen, start Levaquin, follow culture IV hydralazine as needed for blood pressure control DVT prophylaxis
[2019-04-12] MEDS ORDERED: ONDANSETRON 4 MG/2 ML INJ IV PRN ×2 (00:55→01:10)
[2019-04-12] MEDS ORDERED: ACETAMINOPHEN 325 MG TAB PO PRN ×2 (00:55→01:10)
--- NOTE | 2019-04-12 01:08 | Cat Scan Report ---
CT ABDOMEN AND PELVIS WITHOUT CONTRAST INDICATION / CLINICAL INFORMATION: elevated lft, ABD DISTENSION. TECHNIQUE: Axial CT images were obtained through the abdomen and pelvis without IV contrast. All CT scans at [facility] location are performed using CT dose reduction for ALARA by means of automated exposure control. COMPARISON: CT dated 02/28/19 FINDINGS: LOWER CHEST: Moderate bilateral pleural effusions with bibasilar atelectasis, unchanged. LIVER: No significant abnormality. GALLBLADDER: Surgically absent. BILE DUCTS: No significant abnormality. PANCREAS: No significant abnormality. SPLEEN: No significant abnormality. ADRENALS: No significant abnormality. RIGHT KIDNEY and URETER: No significant abnormality. LEFT KIDNEY and URETER: No significant abnormality. STOMACH and SMALL BOWEL: Moderate-sized sliding-type hiatal hernia. Distal esophagus appears dilated containing a moderate amount of food material. Distal stomach and small bowel show no acute abnormali ty. COLON: No significant abnormality. APPENDIX: Not visualized. PERITONEUM: Massive ascites has slightly increased since the prior study. No free air. No fluid colle ction. LYMPH NODES: No significant adenopathy. AORTA and ARTERIES: Moderate atherosclerotic calcification without acute abnormality. IVC and VEINS: No significant abnormality. URINARY BLADDER: Contracted around a Way catheter. REPRODUCTIVE ORGANS: No significant abnormality. ADDITIONAL FINDINGS: Marked body wall soft tissue edema. No change. SKELETAL SYSTEM: No significant abnormality. IMPRESSION: 1. Massive ascites with slight increase since prior study. 2. Moderately large bilateral pleural effusions and diffuse body wall edema possibly representing cecille sarca or other fluid imbalance. 3. Moderate-sized signed type hiatal hernia with dilated distal esophagus containing food material. Signer Name: Ivis Chin MD Signed: 04/12/2019 1:04 AM Workstation Name: [id number]
[2019-04-12] MEDS ORDERED: hydrALAZINE 20 MG/1 ML INJ IV PRN (03:37)
[2019-04-12 05:19] LABS: Basophils % (Auto) 0.5 % (0.0-1.8); Hematocrit 32.6 % (30.3-42.9); Hemoglobin 10.6 gm/dl (10.1-14.3); Lymphocytes # (Auto) 0.8 K/mm3 (1.2-5.4); Lymphocytes % (Auto) 14.7 % (13.4-35.0); Mean Corpuscular HGB Conc 33 % (30-34); Mean Corpuscular Volume 84 fl (79-97); Monocytes # (Auto) 0.2 K/mm3 (0.0-0.8); Monocytes % (Auto) 3.7 % (0.0-7.3); Red Blood Count 3.87 M/mm3 (3.65-5.03); Red Cell Distribution Width 15.9 % (13.2-15.2)
[2019-04-12 05:31] LABS: Platelet Count 59 K/mm3 (140-440)
[2019-04-12 05:43] LABS: Calcium 7.7 mg/dL (8.4-10.2)
[2019-04-12] MEDS ORDERED: LEVOTHYROXINE 150 MCG TAB PO SCH (06:00)
[2019-04-12] MEDS ORDERED: SODIUM CHLORIDE 0.9% 100 ML IV PRN (06:52)
--- NOTE | 2019-04-12 08:07 | Discharge Summary ---
Providers - Providers Date of Admission: 04/11/19 23:45 Attending physician: MARK THOMPSON MD 04/11/19 18:39 Consult to Physician [CONS] Stat Comment: Consulting Provider: YAHAIRA WALKER Physician Instructions: Reason For Exam: HYPERK AND HYPERVOLEMIA Primary care physician: [facility] Hospitalization Condition: Stable Hospital course: 58-year-old woman who was recently discharged from this hospital for hematemesis. At that time she had multiple EGDs for the same complaints. Bleeding resolved on its own. She did not require EGD during her last admission. She is now sent to the hospital because she had blood on her lips. The patient relates that her lips were dry and bleeding/chapped. She denied hematemesis during this admission. -Hemoglobin was stable. There was no evidence of hematemesis or GI bleed, therefore patient was subsequently discharged. Diagnosis Bleeding from dry chapped lips Upper GI bleed ruled out End-stage renal disease on hemodialysis Chronic COPD Hypothyroidism on replacement Type 2 diabetes Dis[facility]: [facility] Time spent for discharge: 33 mins Core Measure Documentation - Palliative Care Palliative Care/ Comfort Measures: Not Applicable - Core Measures Any of the following diagnoses?: none Exam - Constitutional Vitals: Temp Pulse Resp BP Pulse Ox 98.2 F 73 12 146/100 100 04/12/19 03:24 04/12/19 03:24 04/12/19 03:24 04/12/19 03:24 04/12/19 03:24 General appearance: Present: no acute distress, well-nourished - EENT Eyes: Present: PERRL ENT: hearing intact, clear oral mucosa - Neck Neck: Present: supple, normal ROM - Respiratory Respiratory effort: normal Respiratory: bilateral: CTA - Cardiovascular Heart Sounds: Present: S1 & S2. Absent: rub, click - Extremities Extremities: pulses symmetrical, No edema Peripheral Pulses: within normal limits - Abdominal General gastrointestinal: Present: soft, non-tender, non-distended, normal bowel sounds Female genitourinary: Present: normal - Integumentary Integumentary: Present: clear, warm, dry - Musculoskeletal Musculoskeletal: gait normal, strength equal bilaterally - Psychiatric Psychiatric: appropriate mood/affect, intact judgment & insight - Neurologic Neurologic: CNII-XII intact, moves all extremities Plan Follow up with: [facility] [Primary Care Provider] - 7 Days
[2019-04-12] MEDS: CALCIUM ACETATE 667 MG CAP PO SCH ×2 (08:56→15:27)
--- NOTE | 2019-04-12 09:15 | Consultation ---
History of Present Illness - History of Present Illness 58 year old with hepatitis C with decompensated disease , GERD , ESRD on hem odialysis on hemodialysis at [facility] via a Right IJ perm cath presents with hyperkalemia and missed hemodialysis . The usual dialysis schedule is MWF and last dialysis was Tuesday. She denies any orthopnea or PND. Denies any abdominal pain, fevers or chills. She has lower extremity edema as well. She denies any nausea or vomitting but has a markedly distended abdomen. Medications and Allergies Allergies Allergy/AdvReac Type Severity Reaction Status Date / Time guaifenesin [From Robitussin] Allergy Hives Verified 02/09/19 07:00 Penicillins Allergy Hives Verified 02/09/19 07:00 Home Medications Medication Instructions Recorded Confirmed Last Taken Type Acetaminophen [Acetaminophen TAB] 650 mg PO Q12HR PRN 02/09/19 04/11/19 04/05/19 History Polyethylene Glycol 3350 [Miralax 17 gm PO DAILY 02/09/19 04/11/19 04/05/19 History 3350] Albuterol Sulfate [Proair 2 puff IH Q6HR PRN 02/28/19 04/11/19 04/05/19 History Respiclick] Antifungal 1% CREAM 1 pack TP DAILY 02/28/19 04/11/19 04/05/19 History Calcium Acetate [Phoslo] 667 mg PO TID 02/28/19 04/11/19 04/05/19 History Ferrous Sulfate [Feosol 325 MG tab] 325 mg PO BID 02/28/19 04/11/19 04/05/19 History Folic Acid [Folvite] 1 mg PO DAILY 02/28/19 04/11/19 04/05/19 History Glucagon (Human Recomb) [Glucagen] 1 mg IM Q15MIN PRN 02/28/19 04/11/19 04/05/19 History Insulin Lispro [Humalog 100 100 unit SQ PRN PRN 02/28/19 04/11/19 04/05/19 History UNITS/ML Kwikpen] Levothyroxine [Synthroid] 150 mcg PO QAM 02/28/19 04/11/19 04/05/19 History PARoxetine HCl [PARoxetine] 20 mg PO HS 02/28/19 04/11/19 04/05/19 History Sennosides Tab [Senokot] 1 tab PO HS PRN 02/28/19 04/11/19 04/05/19 History Thiamine [Vitamin B-1] 100 mg PO DAILY 02/28/19 04/11/19 04/05/19 History risperiDONE [Risperdal] 2 mg PO DAILY 02/28/19 04/11/19 04/05/19 History Pantoprazole [Protonix TAB] 40 mg PO BID 60 Days tablet 03/06/19 04/11/19 04/05/19 Rx Active Meds: Active Medications Acetaminophen (Tylenol) 650 mg PO Q4H PRN PRN Reason: Pain MILD(1-3)/Fever >100.5/[place] Calcium Acetate (Phoslo) 667 mg PO TIDWM [facility] Last Admin: 04/12/19 08:56 Dose: 667 mg Documented by: Dextrose (D50w (25gm) Syringe) 50 ml IV PRN PRN PRN Reason: Hypoglycemia Last Admin: 04/12/19 04:01 Dose: 50 ml Documented by: Enoxaparin Sodium (Lovenox) 30 mg SUB-Q QDAY [facility] Ferrous Sulfate (Feosol) 325 mg PO BID [facility] Folic Acid (Folvite) 1 mg PO DAILY [facility] Hydralazine HCl (Apresoline) 5 mg IV Q6H PRN PRN Reason: Hypertension Sodium Chloride (Nacl 0.9%) 100 mls @ 999 mls/hr IV MARCELA PRN PRN Reason: Hypotension Levofloxacin (Levaquin) 250 mg PO Q48HR [facility] Levothyroxine Sodium (Synthroid) 150 mcg PO QAM@0600 [facility] Last Admin: 04/12/19 05:33 Dose: 150 mcg Documented by: Ondansetron HCl (Zofran) 4 mg IV Q8H PRN PRN Reason: Nausea And Vomiting Pantoprazole Sodium (Protonix) 40 mg PO BID [facility] Paroxetine HCl (Paxil) 20 mg PO QHS [facility] Polyethylene Glycol (Miralax 3350) 17 gm PO DAILY [facility] Risperidone (Risperdal) 2 mg PO DAILY [facility] Sodium Chloride (Sodium Chloride Flush Syringe 10 Ml) 10 ml IV BID [facility] Sodium Chloride (Sodium Chloride Flush Syringe 10 Ml) 10 ml IV PRN PRN PRN Reason: LINE FLUSH Thiamine HCl (Vitamin B-1) 100 mg PO DAILY [facility] Review of Systems Constitutional: no weight loss, no weight gain Exam - Vital Signs Vital signs: Vital Signs Pulse Resp BP Pulse Ox 86 16 137/93 100 04/11/19 15:08 04/11/19 15:08 04/11/19 15:08 04/11/19 15:08 - General Appearance General appearance: cachectic, chronically ill, frail EENT: ATNC, PERRL, mucous membranes moist Neck: Present: neck supple Respiratory: Decreased Breath Sounds Heart: regular, S1S2 Gastrointestinal: Present: distended, other (large ascites with fluid thrill. ) Integumentary: no rash Neurologic: alert and oriented x3, CN 3-12 intact Musculoskeletal: Present: other (grade 2 edema. ) Psychiatric: depressed Results - Lab Results 04/12/19 04:42 04/12/19 04:42 Most recent lab results Calcium 7.7 mg/dL (8.4-10.2) L 04/12/19 04:42 - Image Kidney/bladder ultrasound: other (I reviewed CXR with right greater than left ef fusion with patchy opacities. ) Assessment and Plan - Patient Problems (1) ESRD (end stage renal disease) on dialysis Current Visit: Yes Status: Chronic Plan to address problem: ESRD on hemodialysis access; Right IJ perm cath Will aim for ultrafiltration 2.5-3L given anarsaca CXR with effusions consider chest ultrasound to further characterize effusions. (2) Volume overload Current Visit: Yes Status: Acute Plan to address problem: Volume overload - 2/2 Decompensated liver disease - marked ascites and edema CXR with effusions. - continue ultrafiltration (3) HTN (hypertension) Current Visit: No Status: Chronic Plan to address problem: HTN: uncontrolled exacerbated by volume status -optimize volume status Ensure meds. (4) Hyperkalemia Current Visit: Yes Status: Acute Plan to address problem: Hyperkalemia in the setting of ESRD - received medical management will initiate dialysis today.
[2019-04-12] MEDS ORDERED: POLYETHYLENE GLYCOL 3350 17 GM POWDER PO SCH (10:00)
[2019-04-12] MEDS ORDERED: levoFLOXacin 250 MG TAB PO SCH (10:00)
[2019-04-12] MEDS ORDERED: NON-FORMULARY EACH (Risperidone [Risperdal] 2 MG) PO SCH (10:00)
[2019-04-12] MEDS ORDERED: FOLIC ACID 1 MG TAB PO SCH (10:00)
[2019-04-12] MEDS ORDERED: THIAMINE 100 MG TAB PO SCH (10:00)
[2019-04-12] MEDS ORDERED: ENOXAPARIN 30 MG/0.3 ML INJ SUB-Q SCH (10:00)
[2019-04-12] MEDS ORDERED: FERROUS SULFATE 325 MG TAB PO SCH (10:00)
[2019-04-12] MEDS ORDERED: PANTOPRAZOLE 40 MG TAB PO SCH (10:00)
[2019-04-12] MEDS ORDERED: risperiDONE 1 MG TAB PO SCH (10:00)
[2019-04-12 10:40] LABS: Basophils % (Auto) 0.1 % (0.0-1.8); Hematocrit 27.7 % (30.3-42.9); Hemoglobin 8.9 gm/dl (10.1-14.3); Lymphocytes # (Auto) 0.9 K/mm3 (1.2-5.4); Lymphocytes % (Auto) 25.5 % (13.4-35.0); Mean Corpuscular HGB Conc 32 % (30-34); Mean Corpuscular Volume 84 fl (79-97); Monocytes # (Auto) 0.1 K/mm3 (0.0-0.8); Monocytes % (Auto) 1.4 % (0.0-7.3); Red Blood Count 3.29 M/mm3 (3.65-5.03); Red Cell Distribution Width 16.3 % (13.2-15.2)
[2019-04-12 11:06] LABS: Platelet Count 55 K/mm3 (140-440)
[2019-04-12 11:44] LABS: BUN/Creatinine Ratio TNR; Blood Urea Nitrogen TNR mg/dL (7-17)
[2019-04-12 11:45] LABS: Calcium TNR mg/dL (8.4-10.2); Hemolysis Index TNR
[2019-04-12 16:02] VITALS: BP 112/80
[2019-04-12] MEDS ORDERED: PARoxetine 20 MG TAB PO SCH (22:00)
[2019-04-12] MEDS ORDERED: PAROXETINE HCL 20 MG PO SCH (22:00)
== END 2019-04-12 17:40 | DRG 640 ==
LOC: ED 14:35 → 4A 23:45
PROVIDERS: ADMIT Internal Medicine; ATTEND Internal Medicine
PROC: 5A1D70Z Performance of Urinary Filtration, Intermittent, Less than 6 Hours Per Day (ICD-10-PCS; principal; 2019-04-12)
DX: E87.5 Hyperkalemia (principal); N18.6 End stage renal disease; R94.5 Abnormal results of liver function studies; E03.9 Hypothyroidism, unspecified; N39.0 Urinary tract infection, site not specified; F03.90 Unspecified dementia, unspecified severity, without behavioral disturbance, psychotic disturbance, mood disturbance, and anxiety; I50.9 Heart failure, unspecified; K21.9 Gastro-esophageal reflux disease without esophagitis; E87.70 Fluid overload, unspecified; J44.9 Chronic obstructive pulmonary disease, unspecified; K76.89 Other specified diseases of liver; I13.2 Hypertensive heart and chronic kidney disease with heart failure and with stage 5 chronic kidney disease, or end stage renal disease; E11.22 Type 2 diabetes mellitus with diabetic chronic kidney disease; B19.20 Unspecified viral hepatitis C without hepatic coma; F31.9 Bipolar disorder, unspecified; E11.649 Type 2 diabetes mellitus with hypoglycemia without coma; Z88.0 Allergy status to penicillin; Z79.899 Other long term (current) drug therapy; Z86.73 Personal history of transient ischemic attack (TIA), and cerebral infarction without residual deficits
CPT/HCPCS: 36415; 71045; 74022; 74176; 80048; 80053; 80074; 81001; 82140; 82962; 83036; 83880; 85014; 85018; 85025; 85027; 85610; 85730; 86850; 86900; 86901; 87086; 93005; 93010; G0378; C9113; J0696; J0885; J1650; J1815; J7030

== ENCOUNTER 2019-04-17 20:32 | Inpatient (IN) | payer MEDICAID ==
[2019-04-17] MEDS ORDERED: XYLOCAINE 1% 20 mL ONE (20:59)
[2019-04-17] MEDS ORDERED: NACL 0.9% 1000 ML IV ONE (21:18)
[2019-04-17] MEDS ORDERED: NACL 0.9% 500 ML 500 ML IV ONE ×2 (21:18→23:26)
[2019-04-17] MEDS ORDERED: NACL 0.9% 1000 ML 1,000 ML ONE (21:18)
[2019-04-17 22:14] LABS: Mean Corpuscular HGB Conc 33 % (30-34); Mean Corpuscular Volume 85 fl (79-97); Red Blood Count 1.62 M/mm3 (3.65-5.03); Red Cell Distribution Width 16.2 % (13.2-15.2)
[2019-04-17 22:23] LABS: Hemoglobin 4.5 gm/dl (10.1-14.3); INR 1.4 (0.87-1.13)
[2019-04-17 22:24] LABS: Hematocrit 13.7 % (30.3-42.9); Platelet Count 33 K/mm3 (140-440)
[2019-04-17 22:56] LABS: Basophils % (Manual) 0 % (0.0-1.8); Eosinophils % (Manual) 0 % (0.0-4.3); Total Cells Counted 100
[2019-04-17 22:57] LABS: Anisocytosis Few; Hypochromasia 2+; Target Cells 1+
[2019-04-17 22:58] LABS: Platelet Estimate Appears Decreased
[2019-04-17 23:06] LABS: Bacteria,Urine 4+ /HPF (Negative); Bilirubin,Urine NEG (Negative); Blood,Urine LG (Negative); Color,Urine Yellow (Yellow); Mucus,Urine FEW /HPF; Urobilinogen,Urine < 2.0 mg/dL (<2.0)
[2019-04-17 23:07] LABS: RBC,Urine > 182.0 /HPF (0.0-6.0)
[2019-04-17 23:08] LABS: WBC,Urine > 182.0 /HPF (0.0-6.0)
--- NOTE | 2019-04-17 23:08 | Cat Scan Report ---
CT head/brain wo con INDICATION: Altered mental status. TECHNIQUE: Routine CT head without contrast. All CT scans at this location are performed using CT dos e reduction for ALARA by means of automated exposure control. COMPARISON: None. FINDINGS: BRAIN / INTRACRANIAL CONTENTS: No acute hemorrhage, mass effect, midline shift, or hydrocephalus. No appreciable acute large territorial or lacunar infarct. No chronic infarct. Age-commensurate ventricu lar and cisternal/sulcal prominence. ORBITS: No significant abnormality of visualized orbits. SINUSES / MASTOIDS: No significant abnormality of visualized sinuses and mastoid air cells. IMPRESSION: 1. No acute intracranial abnormality. Signer Name: Rene Romo MD Signed: 04/17/2019 11:04 PM Workstation Name: [id number]
--- NOTE | 2019-04-17 23:09 | XRay Report ---
CHEST 1 VIEW INDICATION / CLINICAL INFORMATION: overload. COMPARISON: 04/11/2019 chest FINDINGS: SUPPORT DEVICES: Dual-lumen hemodialysis catheter in unchanged position. HEART / MEDIASTINUM: Stable. LUNGS / PLEURA: No significant change in the appearance of the lungs. No pneumothorax. ADDITIONAL FINDINGS: No significant additional findings. IMPRESSION: 1. No significant change. Signer Name: Rene Romo MD Signed: 04/17/2019 11:05 PM Workstation Name: [id number]
[2019-04-17] MEDS ORDERED: LEVAQUIN 750MG/150ML 750 MG/150 ML BAG IV ONE (23:23)
--- NOTE | 2019-04-17 23:24 | Emergency Department Report ---
<TIA ALSTON - Last Filed: 04/18/19 15:05> ED General Adult HPI - General Chief complaint: Weakness Stated complaint: LETHARGY, HYPOTENSION Time Seen by Provider: 04/17/19 20:50 Source: EMS Mode of arrival: Stretcher Limitations: Physical Limitation - History of Present Illness Initial comments: The patient presents to the emergency department via EMS from [facility]. The patient has end-stage renal disease and has not has dialysis since last Tuesday. Per the family the patient has not been sent to dialysis by the [facility]. Upon arrival the patient is in mild respiratory distress with a blood pressure systolically in the 80s. Patient has dementia and thus history is limited but the patient has no complaints. Patient has a history of GI bleeds. -: Gradual Severity scale (0 -10): 0 Improves with: none Worsens with: none Associated Symptoms: denies other symptoms Treatments Prior to Arrival: none - Related Data Home Medications Medication Instructions Recorded Confirmed Last Taken Acetaminophen [Acetaminophen TAB] 650 mg PO Q12HR PRN 02/09/19 04/18/19 04/05/19 Albuterol Sulfate [Proair 2 puff IH Q6HR PRN 02/28/19 04/18/19 04/05/19 Respiclick] Antifungal 1% CREAM 1 pack TP DAILY 02/28/19 04/18/19 04/05/19 Calcium Acetate [Phoslo] 667 mg PO TID 02/28/19 04/18/19 04/05/19 Ferrous Sulfate [Feosol 325 MG tab] 325 mg PO BID 02/28/19 04/18/19 04/05/19 Folic Acid [Folvite] 1 mg PO DAILY 02/28/19 04/18/19 04/05/19 Glucagon (Human Recomb) [Glucagen] 1 mg IM Q15MIN PRN 02/28/19 04/18/19 04/05/19 Thiamine [Vitamin B-1] 100 mg PO DAILY 02/28/19 04/18/19 04/05/19 AtorvaSTATin 80 mg PO HS 04/18/19 04/18/19 Unknown Previous Rx's Medication Instructions Recorded Last Taken Type AtorvaSTATin [Lipitor] 40 mg PO QHS tablet 04/23/19 Unknown Rx Insulin Regular, Human [HumuLIN R] 0 units SUB-Q ACHS units 04/23/19 Unknown Rx Levothyroxine [Synthroid] 150 mcg PO DAILY@0600 tablet 04/23/19 Unknown Rx Loperamide [Imodium] 2 mg PO Q2H PRN capsule 04/23/19 Unknown Rx Midodrine [Proamatine] 10 mg PO MARCELA PRN tablet 04/23/19 Unknown Rx Pantoprazole [Protonix TAB] 40 mg PO BID tablet 04/23/19 Unknown Rx Sucralfate [Carafate] 1 gm PO Q6HR oral.liqd 04/23/19 Unknown Rx risperiDONE [RisperDAL] 2 mg PO DAILY tablet 04/23/19 Unknown Rx Allergies Allergy/AdvReac Type Severity Reaction Status Date / Time guaifenesin [From Robitussin] Allergy Hives Verified 02/09/19 07:00 Penicillins Allergy Hives Verified 02/09/19 07:00 ED Review of Systems Constitutional: denies: chills, fever Eyes: denies: eye pain, eye discharge, vision change ENT: denies: ear pain, throat pain Respiratory: denies: cough, shortness of breath, wheezing Cardiovascular: denies: chest pain, palpitations Endocrine: no symptoms reported Gastrointestinal: denies: abdominal pain, nausea, diarrhea Genitourinary: denies: urgency, dysuria, discharge Musculoskeletal: denies: back pain, joint swelling, arthralgia Skin: denies: rash, lesions Neurological: denies: headache, weakness, paresthesias Psychiatric: denies: anxiety, depression Hematological/Lymphatic: denies: easy bleeding, easy bruising ED Past Medical Hx - Past Medical History Hx Hypertension: Yes (HX CHF) Hx CVA: No Hx Heart Attack/AMI: No Hx Congestive Heart Failure: Yes Hx Diabetes: No Hx Deep Vein Thrombosis: No Hx Pulmonary Embolism: No Hx GERD: Yes Hx Liver Disease: Yes (HEP C. 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) Hx Kidney Stones: No Hx Psychiatric Treatment: Yes (major depressive disorder, schizophrenia) Hx Asthma: No Hx COPD: No Hx HIV: No Additional medical history: Cerebral infar, withh thrombosis of left cerebral artery, ESRDulcers of esophagus with bleeding, falls, hyperlipidemia, allergic rhinitis, constipation, anemia, vit D deficiency, hypothyroid, chronic pain, sinuitis, pruitis, didpl unsp condyle fx low end l femur 7th D, Hep C - Surgical History Additional Surgical History: left hip, left leg sx, x3, both feet sx - Social History Smoking Status: Unknown if ever smoked - Medications Home Medications: Home Medications Medication Instructions Recorded Confirmed Last Taken Type Acetaminophen [Acetaminophen TAB] 650 mg PO Q12HR PRN 02/09/19 04/18/19 04/05/19 History Albuterol Sulfate [Proair 2 puff IH Q6HR PRN 02/28/19 04/18/19 04/05/19 History Respiclick] Antifungal 1% CREAM 1 pack TP DAILY 02/28/19 04/18/19 04/05/19 History Calcium Acetate [Phoslo] 667 mg PO TID 02/28/19 04/18/19 04/05/19 History Ferrous Sulfate [Feosol 325 MG tab] 325 mg PO BID 02/28/19 04/18/19 04/05/19 History Folic Acid [Folvite] 1 mg PO DAILY 02/28/19 04/18/19 04/05/19 History Glucagon (Human Recomb) [Glucagen] 1 mg IM Q15MIN PRN 02/28/19 04/18/19 04/05/19 History Thiamine [Vitamin B-1] 100 mg PO DAILY 02/28/19 04/18/19 04/05/19 History AtorvaSTATin 80 mg PO HS 04/18/19 04/18/19 Unknown History AtorvaSTATin [Lipitor] 40 mg PO QHS tablet 04/23/19 Unknown Rx Insulin Regular, Human [HumuLIN R] 0 units SUB-Q ACHS units 04/23/19 Unknown Rx Levothyroxine [Synthroid] 150 mcg PO DAILY@0600 tablet 04/23/19 Unknown Rx Loperamide [Imodium] 2 mg PO Q2H PRN capsule 04/23/19 Unknown Rx Midodrine [Proamatine] 10 mg PO MARCELA PRN tablet 04/23/19 Unknown Rx Pantoprazole [Protonix TAB] 40 mg PO BID tablet 04/23/19 Unknown Rx Sucralfate [Carafate] 1 gm PO Q6HR oral.liqd 04/23/19 Unknown Rx risperiDONE [RisperDAL] 2 mg PO DAILY tablet 04/23/19 Unknown Rx ED Physical Exam - General Limitations: Physical Limitation General appearance: alert, in distress (mild distress) - Head Head exam: Present: atraumatic, normocephalic - Eye Eye exam: Present: normal appearance, PERRL - ENT ENT exam: Present: mucous membranes dry - Neck Neck exam: Present: normal inspection - Respiratory Respiratory exam: Present: respiratory distress (mild), rales - Cardiovascular Cardiovascular Exam: Present: regular rate, normal rhythm - GI/Abdominal GI/Abdominal exam: Present: soft, distended, other (anasarca). Absent: tenderness, normal bowel sounds - Extremities Exam Extremities exam: Present: other (anasarca) - Back Exam Back exam: Present: normal inspection - Neurological Exam Neurological exam: Present: alert, altered, oriented X3, CN II-XII intact - Skin Skin exam: Present: warm, dry, intact, normal color. Absent: rash ED Medical Decision Making - Lab Data Result diagrams: 04/17/19 21:53 04/17/19 22:00 - Medical Decision Making CVL attempted in the femoral vein to no avail. Decided against a subclavian and IJ because of the indwelling vascath for dialysis IVF bolus of 500 cc's given with minor BP improvements Given IV abx for the UTI Spoke with Dr. Ryder and the patient should receive 80mg of IV lasix before transfusing 1 unit of prbcs over 4 hours and then 3 more untis tomorrow with plans of dialysis tomorrow ED Disposition Clinical Impression: Hypotension, UTI (urinary tract infection), Thrombocytopenia GI bleed Qualifiers: GI bleed type/associated pathology: unspecified gastrointestinal hemorrhage type Qualified Code(s): K92.2 - Gastrointestinal hemorrhage, unspecified Anemia Qualifiers: Anemia type: iron deficiency Iron deficiency anemia type: chronic blood loss Qualified Code(s): D50.0 - Iron deficiency anemia secondary to blood loss (chronic) Disposition: 09 OP ADMIT IP TO THIS HOSP Condition: Fair <HORACE YIP - Last Filed: 04/24/19 15:14> ED General Adult HPI - History of Present Illness Initial comments: was not involved in the care of this patient despite my name being listed on the chart in [facility]. Dr Horace Yip ED Review of Systems ROS: Stated complaint: LETHARGY, HYPOTENSION Other details as noted in HPI ED Course Vital Signs 04/17/19 04/17/19 04/17/19 20:47 21:00 21:15 Temperature Pulse Rate 63 64 69 Respiratory 13 10 L 15 Rate Blood Pressure 91/59 79/51 89/58 O2 Sat by Pulse 97 98 65 L Oximetry 04/17/19 04/17/19 04/17/19 21:30 21:45 22:00 Temperature Pulse Rate 66 67 62 Respiratory 10 L 18 10 L Rate Blood Pressure 92/63 87/56 85/55 O2 Sat by Pulse Oximetry 04/17/19 04/17/19 04/17/19 22:29 22:30 22:34 Temperature Pulse Rate 64 66 Respiratory 9 L 12 Rate Blood Pressure 80/54 88/62 O2 Sat by Pulse 95 Oximetry 04/17/19 04/17/19 04/17/19 22:41 22:45 23:00 Temperature Pulse Rate 64 61 Respiratory 26 H 10 L 12 Rate Blood Pressure 79/51 74/50 O2 Sat by Pulse 95 Oximetry 04/17/19 04/17/19 04/17/19 23:15 23:30 23:42 Temperature Pulse Rate 64 63 64 Respiratory 15 11 L 14 Rate Blood Pressure 76/49 67/45 67/45 O2 Sat by Pulse 94 Oximetry 04/17/19 04/18/19 04/18/19 23:45 00:00 00:01 Temperature Pulse Rate 64 67 66 Respiratory 9 L 14 11 L Rate Blood Pressure 75/48 70/48 70/48 O2 Sat by Pulse Oximetry 04/18/19 04/18/19 04/18/19 00:15 00:30 00:45 Temperature Pulse Rate 64 62 69 Respiratory 12 11 L 12 Rate Blood Pressure 68/45 66/42 79/51 O2 Sat by Pulse Oximetry 04/18/19 04/18/19 04/18/19 00:59 01:00 01:15 Temperature 98.2 F 98.2 F Pulse Rate 71 69 68 Respiratory 26 H 15 9 L Rate Blood Pressure 75/48 80/50 77/53 O2 Sat by Pulse 100 98 100 Oximetry 04/18/19 04/18/19 04/18/19 01:20 01:25 01:30 Temperature 98.1 F 98.1 F 98 F Pulse Rate 70 68 68 Respiratory 19 20 12 Rate Blood Pressure 84/55 84/56 91/64 O2 Sat by Pulse 100 100 100 Oximetry 04/18/19 04/18/19 04/18/19 01:46 02:00 02:16 Temperature Pulse Rate 68 65 65 Respiratory 11 L 11 L 12 Rate Blood Pressure 80/50 90/56 90/56 O2 Sat by Pulse Oximetry 04/18/19 04/18/19 04/18/19 02:30 02:46 03:00 Temperature Pulse Rate 62 69 65 Respiratory 9 L 13 12 Rate Blood Pressure 85/58 90/56 84/58 O2 Sat by Pulse 90 Oximetry 04/18/19 04/18/19 04/18/19 03:10 03:20 03:30 Temperature Pulse Rate 66 64 62 Respiratory 13 10 L 12 Rate Blood Pressure 84/58 84/58 94/65 O2 Sat by Pulse 100 100 100 Oximetry 04/18/19 03:40 Temperature Pulse Rate 64 Respiratory 12 Rate Blood Pressure 94/65 O2 Sat by Pulse 100 Oximetry ED Medical Decision Making - Lab Data Result diagrams: 04/23/19 09:52 04/23/19 09:52 Lab Results 04/17/19 04/17/19 04/17/19 Range/Units 21:53 21:53 21:53 WBC 2.1 L (4.5-11.0) K/mm3 RBC 1.62 L (3.65-5.03) M/mm3 Hgb 4.5 L* (10.1-14.3) gm/dl Hct 13.7 L* (30.3-42.9) % MCV 85 (79-97) fl MCH 28 (28-32) pg MCHC 33 (30-34) % RDW 16.2 H (13.2-15.2) % Plt Count 33 L (140-440) K/mm3 Add Manual Diff Complete Total Counted 100 Seg Neuts % (Manual) 82 H (40.0-70.0) % Band Neutrophils % 0 % Lymphocytes % (Manual) 17 (13.4-35.0) % Reactive Lymphs % (Man) 0 % Monocytes % (Manual) 1.0 (0.0-7.3) % Eosinophils % (Manual) 0 (0.0-4.3) % Basophils % (Manual) 0 (0.0-1.8) % Metamyelocytes % 0 % Myelocytes % 0 % Promyelocytes % 0 % Blast Cells % 0 % Nucleated RBC % Not Reportable Seg Neutrophils # Man 1.7 L (1.8-7.7) K/mm3 Band Neutrophils # 0.0 K/mm3 Lymphocytes # (Manual) 0.3 L (1.2-5.4) K/mm3 Abs React Lymphs (Man) 0.0 K/mm3 Monocytes # (Manual) 0.0 (0.0-0.8) K/mm3 Eosinophils # (Manual) 0.0 (0.0-0.4) K/mm3 Basophils # (Manual) 0.0 (0.0-0.1) K/mm3 Metamyelocytes # 0.0 K/mm3 Myelocytes # 0.0 K/mm3 Promyelocytes # 0.0 K/mm3 Blast Cells # 0.0 K/mm3 WBC Morphology Not Reportable Hypersegmented Neuts Not Reportable Hyposegmented Neuts Not Reportable Hypogranular Neuts Not Reportable Smudge Cells Not Reportable Toxic Granulation Not Reportable Toxic Vacuolation Not Reportable Dohle Bodies Not Reportable Pelger-Huet Anomaly Not Reportable Marcellus Rods Not Reportable Platelet Estimate Appears decreased Clumped Platelets Not Reportable Plt Clumps, EDTA Not Reportable Large Platelets Not Reportable Giant Platelets Not Reportable Platelet Satelliting Not Reportable Plt Morphology Comment Not Reportable RBC Morphology Not Reportable Dimorphic RBCs Not Reportable Polychromasia Not Reportable Hypochromasia 2+ Poikilocytosis Not Reportable Anisocytosis Few Microcytosis Not Reportable Macrocytosis Not Reportable Spherocytes Not Reportable Pappenheimer Bodies Not Reportable Sickle Cells Not Reportable Target Cells 1+ Tear Drop Cells Not Reportable Ovalocytes Not Reportable Helmet Cells Not Reportable Pearson-Overton Bodies Not Reportable Butler Rings Not Reportable John Cells Not Reportable Bite Cells Not Reportable Crenated Cell Not Reportable Elliptocytes Not Reportable Acanthocytes (Spur) Not Reportable Rouleaux Not Reportable Hemoglobin C Crystals Not Reportable Schistocytes Not Reportable Malaria parasites Not Reportable Michael Bodies Not Reportable Hem Pathologist Commnt No PT 16.8 H (12.2-14.9) Sec. INR 1.40 H (0.87-1.13) APTT 48.0 H (24.2-36.6) Sec. POC ABG pH (7.35-7.45) POC ABG pCO2 (35-45) POC ABG HCO3 (22-26 mml/L) POC ABG Total CO2 (23-27mmol/L) POC ABG O2 Sat POC ABG Base Excess ((-2) - (+3)mmol/L) FiO2 % Sodium (137-145) mmol/L Potassium (3.6-5.0) mmol/L Chloride (98-107) mmol/L Carbon Dioxide (22-30) mmol/L Anion Gap mmol/L BUN (7-17) mg/dL Creatinine (0.7-1.2) mg/dL Estimated GFR ml/min BUN/Creatinine Ratio % Glucose (65-100) mg/dL Lactic Acid 1.70 (0.7-2.0) mmol/L Calcium (8.4-10.2) mg/dL Total Bilirubin (0.1-1.2) mg/dL AST (5-40) units/L ALT (7-56) units/L Alkaline Phosphatase (35-129) units/L NT-Pro-B Natriuret Pep (0-900) pg/mL Total Protein (6.3-8.2) g/dL Albumin (3.9-5) g/dL Albumin/Globulin Ratio % Urine Color (Yellow) Urine Turbidity (Clear) Urine pH (5.0-7.0) Ur Specific Trezevant (1.003-1.030) Urine Protein (Negative) mg/dL Urine Glucose (UA) (Negative) mg/dL Urine Ketones (Negative) mg/dL Urine Blood (Negative) Urine Nitrite (Negative) Urine Bilirubin (Negative) Urine Urobilinogen (<2.0) mg/dL Ur Leukocyte Esterase (Negative) Urine WBC (Auto) (0.0-6.0) /HPF Urine RBC (Auto) (0.0-6.0) /HPF Urine Bacteria (Auto) (Negative) /HPF Urine Mucus /HPF Urine Yeast (Budding) /HPF Blood Type Antibody Screen Crossmatch 04/17/19 04/17/19 04/17/19 Range/Units 22:00 22:00 22:40 WBC (4.5-11.0) K/mm3 RBC (3.65-5.03) M/mm3 Hgb (10.1-14.3) gm/dl Hct (30.3-42.9) % MCV (79-97) fl MCH (28-32) pg MCHC (30-34) % RDW (13.2-15.2) % Plt Count (140-440) K/mm3 Add Manual Diff Total Counted Seg Neuts % (Manual) (40.0-70.0) % Band Neutrophils % % Lymphocytes % (Manual) (13.4-35.0) % Reactive Lymphs % (Man) % Monocytes % (Manual) (0.0-7.3) % Eosinophils % (Manual) (0.0-4.3) % Basophils % (Manual) (0.0-1.8) % Metamyelocytes % % Myelocytes % % Promyelocytes % % Blast Cells % % Nucleated RBC % Seg Neutrophils # Man (1.8-7.7) K/mm3 Band Neutrophils # K/mm3 Lymphocytes # (Manual) (1.2-5.4) K/mm3 Abs React Lymphs (Man) K/mm3 Monocytes # (Manual) (0.0-0.8) K/mm3 Eosinophils # (Manual) (0.0-0.4) K/mm3 Basophils # (Manual) (0.0-0.1) K/mm3 Metamyelocytes # K/mm3 Myelocytes # K/mm3 Promyelocytes # K/mm3 Blast Cells # K/mm3 WBC Morphology Hypersegmented Neuts Hyposegmented Neuts Hypogranular Neuts Smudge Cells Toxic Granulation Toxic Vacuolation Dohle Bodies Pelger-Huet Anomaly Marcellus Rods Platelet Estimate Clumped Platelets Plt Clumps, EDTA Large Platelets Giant Platelets Platelet Satelliting Plt Morphology Comment RBC Morphology Dimorphic RBCs Polychromasia Hypochromasia Poikilocytosis Anisocytosis Microcytosis Macrocytosis Spherocytes Pappenheimer Bodies Sickle Cells Target Cells Tear Drop Cells Ovalocytes Helmet Cells Pearson-Overton Bodies Butler Rings John Cells Bite Cells Crenated Cell Elliptocytes Acanthocytes (Spur) Rouleaux Hemoglobin C Crystals Schistocytes Malaria parasites Michael Bodies Hem Pathologist Commnt PT (12.2-14.9) Sec. INR (0.87-1.13) APTT (24.2-36.6) Sec. POC ABG pH (7.35-7.45) POC ABG pCO2 (35-45) POC ABG HCO3 (22-26 mml/L) POC ABG Total CO2 (23-27mmol/L) POC ABG O2 Sat POC ABG Base Excess ((-2) - (+3)mmol/L) FiO2 % Sodium 134 L (137-145) mmol/L Potassium 4.4 (3.6-5.0) mmol/L Chloride 98.9 (98-107) mmol/L Carbon Dioxide 28 (22-30) mmol/L Anion Gap 12 mmol/L BUN 83 H (7-17) mg/dL Creatinine 3.2 H (0.7-1.2) mg/dL Estimated GFR 18 ml/min BUN/Creatinine Ratio 26 % Glucose 102 H (65-100) mg/dL Lactic Acid (0.7-2.0) mmol/L Calcium 7.0 L (8.4-10.2) mg/dL Total Bilirubin 0.30 (0.1-1.2) mg/dL AST 165 H (5-40) units/L ALT 111 H (7-56) units/L Alkaline Phosphatase 85 (35-129) units/L NT-Pro-B Natriuret Pep 57903 H (0-900) pg/mL Total Protein 4.5 L (6.3-8.2) g/dL Albumin 2.0 L (3.9-5) g/dL Albumin/Globulin Ratio 0.8 % Urine Color Yellow (Yellow) Urine Turbidity Turbid (Clear) Urine pH 5.0 (5.0-7.0) Ur Specific Trez[place]ant 1.014 (1.003-1.030) Urine Protein 100 mg/dl (Negative) mg/dL Urine Glucose (UA) Neg (Negative) mg/dL Urine Ketones Neg (Negative) mg/dL Urine Blood Lg (Negative) Urine Nitrite Neg (Negative) Urine Bilirubin Neg (Negative) Urine Urobilinogen < 2.0 (<2.0) mg/dL Ur Leukocyte Esterase Lg (Negative) Urine WBC (Auto) > 182.0 H (0.0-6.0) /HPF Urine RBC (Auto) > 182.0 (0.0-6.0) /HPF Urine Bacteria (Auto) 4+ (Negative) /HPF Urine Mucus Few /HPF Urine Yeast (Budding) 3+ /HPF Blood Type Antibody Screen Crossmatch 04/17/19 04/17/19 04/18/19 Range/Units 23:20 23:41 00:18 WBC (4.5-11.0) K/mm3 RBC (3.65-5.03) M/mm3 Hgb (10.1-14.3) gm/dl Hct (30.3-42.9) % MCV (79-97) fl MCH (28-32) pg MCHC (30-34) % RDW (13.2-15.2) % Plt Count (140-440) K/mm3 Add Manual Diff Total Counted Seg Neuts % (Manual) (40.0-70.0) % Band Neutrophils % % Lymphocytes % (Manual) (13.4-35.0) % Reactive Lymphs % (Man) % Monocytes % (Manual) (0.0-7.3) % Eosinophils % (Manual) (0.0-4.3) % Basophils % (Manual) (0.0-1.8) % Metamyelocytes % % Myelocytes % % Promyelocytes % % Blast Cells % % Nucleated RBC % Seg Neutrophils # Man (1.8-7.7) K/mm3 Band Neutrophils # K/mm3 Lymphocytes # (Manual) (1.2-5.4) K/mm3 Abs React Lymphs (Man) K/mm3 Monocytes # (Manual) (0.0-0.8) K/mm3 Eosinophils # (Manual) (0.0-0.4) K/mm3 Basophils # (Manual) (0.0-0.1) K/mm3 Metamyelocytes # K/mm3 Myelocytes # K/mm3 Promyelocytes # K/mm3 Blast Cells # K/mm3 WBC Morphology Hypersegmented Neuts Hyposegmented Neuts Hypogranular Neuts Smudge Cells Toxic Granulation Toxic Vacuolation Dohle Bodies Pelger-Huet Anomaly Marcellus Rods Platelet Estimate Clumped Platelets Plt Clumps, EDTA Large Platelets Giant Platelets Platelet Satelliting Plt Morphology Comment RBC Morphology Dimorphic RBCs Polychromasia Hypochromasia Poikilocytosis Anisocytosis Microcytosis Macrocytosis Spherocytes Pappenheimer Bodies Sickle Cells Target Cells Tear Drop Cells Ovalocytes Helmet Cells Pearson-Overton Bodies Butler Rings John Cells Bite Cells Crenated Cell Elliptocytes Acanthocytes (Spur) Rouleaux Hemoglobin C Crystals Schistocytes Malaria parasites Michael Bodies Hem Pathologist Commnt PT (12.2-14.9) Sec. INR (0.87-1.13) APTT (24.2-36.6) Sec. POC ABG pH 7.336 L (7.35-7.45) POC ABG pCO2 54.9 H (35-45) POC ABG HCO3 29.4 (22-26 mml/L) POC ABG Total CO2 31 (23-27mmol/L) POC ABG O2 Sat 55 POC ABG Base Excess 4 ((-2) - (+3)mmol/L) FiO2 25 % Sodium (137-145) mmol/L Potassium (3.6-5.0) mmol/L Chloride (98-107) mmol/L Carbon Dioxide (22-30) mmol/L Anion Gap mmol/L BUN (7-17) mg/dL Creatinine (0.7-1.2) mg/dL Estimated GFR ml/min BUN/Creatinine Ratio % Glucose (65-100) mg/dL Lactic Acid 1.80 (0.7-2.0) mmol/L Calcium (8.4-10.2) mg/dL Total Bilirubin (0.1-1.2) mg/dL AST (5-40) units/L ALT (7-56) units/L Alkaline Phosphatase (35-129) units/L NT-Pro-B Natriuret Pep (0-900) pg/mL Total Protein (6.3-8.2) g/dL Albumin (3.9-5) g/dL Albumin/Globulin Ratio % Urine Color (Yellow) Urine Turbidity (Clear) Urine pH (5.0-7.0) Ur Specific [place] (1.003-1.030) Urine Protein (Negative) mg/dL Urine Glucose (UA) (Negative) mg/dL Urine Ketones (Negative) mg/dL Urine Blood (Negative) Urine Nitrite (Negative) Urine Bilirubin (Negative) Urine Urobilinogen (<2.0) mg/dL Ur Leukocyte Esterase (Negative) Urine WBC (Auto) (0.0-6.0) /HPF Urine RBC (Auto) (0.0-6.0) /HPF Urine Bacteria (Auto) (Negative) /HPF Urine Mucus /HPF Urine Yeast (Budding) /HPF Blood Type B POSITIVE Antibody Screen Negative Crossmatch See Detail - Radiology Data Radiology results: report reviewed Critical Care Time: Yes Critical care time in (mins) excluding proc time.: 75 Critical care attestation.: If time is entered above; I have spent that time in minutes in the direct care of this critically ill patient, excluding procedure time. ED Disposition Is pt being admited?: Yes Does the pt Need Aspirin: No
[2019-04-18] MEDS ORDERED: LASIX IV ONE (00:06)
--- NOTE | 2019-04-18 00:07 | History and Physical Report ---
History of Present Illness Chief complaint: sob and confusion History of present illness: 58-year-old woman who is a resident of [facility] well-known to [facility]. History of end-stage renal disease on dialysis. Has been admitted multiple times for GI bleed due to peptic ulcer dise ase, history of multiple endoscopies. Was recently admitted to the hospital for vomiting blood. . History is limited due to the patient's dementia. But per her daughter the patient was discharged from [facility] on . She went back to [facility]. She was due for dialysis on Tuesday, but for some reason the daughter states that the patient never got dial ysis, she did not get dialysis through the weekend. Then on Tuesday she was sent to [facility] for hematemesis. She was then discharged on Tuesday., Per her daughter she did not receive dialysis while at [place], she did not receive EGD. Daughter was not sure why the patient was discharged. But she arrived back at [place] and upon arrival the patient was confused, altered and short of breath. And then she was then sent to [facility] ER where she was find to have profound anemia, hypoxic respiratory failure and altered mental status and confusion. PAST MEDICAL HISTORY: History of multiple peptic ulcers, multiple admissions for GI bleed. CVA, end-stage renal disease on dialysis, sees CHF, hepatitis C, diabetes, hypothyroidism, hypertension, dementia, bipolar PAST SURGICAL HISTORY: Unknown FAMILY HISTORY:Unknown SOCIAL HISTORY: Denies tobacco, drugs, alcohol, [place] resident Medications and Allergies Allergies Allergy/AdvReac Type Severity Reaction Status Date / Time guaifenesin [From Robitussin] Allergy Hives Verified 02/09/19 07:00 Penicillins Allergy Hives Verified 02/09/19 07:00 Home Medications Medication Instructions Recorded Confirmed Last Taken Type Acetaminophen [Acetaminophen TAB] 650 mg PO Q12HR PRN 02/09/19 04/18/19 04/05/19 History Polyethylene Glycol 3350 [Miralax 17 gm PO DAILY 02/09/19 04/18/19 04/05/19 History 3350] Albuterol Sulfate [Proair 2 puff IH Q6HR PRN 02/28/19 04/18/19 04/05/19 History Respiclick] Antifungal 1% CREAM 1 pack TP DAILY 02/28/19 04/18/19 04/05/19 History Calcium Acetate [Phoslo] 667 mg PO TID 02/28/19 04/18/19 04/05/19 History Ferrous Sulfate [Feosol 325 MG tab] 325 mg PO BID 02/28/19 04/18/19 04/05/19 History Folic Acid [Folvite] 1 mg PO DAILY 02/28/19 04/18/19 04/05/19 History Glucagon (Human Recomb) [Glucagen] 1 mg IM Q15MIN PRN 02/28/19 04/18/19 04/05/19 History Insulin Lispro [Humalog 100 100 unit SQ PRN PRN 02/28/19 04/18/19 04/05/19 History UNITS/ML Kwikpen] Levothyroxine [Synthroid] 150 mcg PO QAM 02/28/19 04/18/19 04/05/19 History PARoxetine HCl [PARoxetine] 20 mg PO HS 02/28/19 04/18/19 04/05/19 History Sennosides Tab [Senokot] 1 tab PO HS PRN 02/28/19 04/18/19 04/05/19 History Thiamine [Vitamin B-1] 100 mg PO DAILY 02/28/19 04/18/19 04/05/19 History risperiDONE [Risperdal] 2 mg PO DAILY 02/28/19 04/18/19 04/05/19 History Pantoprazole [Protonix TAB] 40 mg PO BID 60 Days tablet 03/06/19 04/18/19 04/05/19 Rx AtorvaSTATin 80 mg PO HS 04/18/19 04/18/19 Unknown History Levothyroxine 150 mcg PO DAILY 04/18/19 04/18/19 Unknown History Midodrine 10 mg PO 3XW 04/18/19 04/18/19 Unknown History Active Meds: Active Medications Furosemide (Lasix) 80 mg IV ONCE ONE Stop: 04/18/19 00:07 Levofloxacin/Dextrose (Levaquin 750mg/150ml) 750 mg in 150 mls @ 100 mls/hr IV ONCE ONE Stop: 04/18/19 00:52 Last Admin: 04/17/19 23:48 Dose: 100 mls/hr Documented by: Review of Systems ROS unobtainable: due to mental status Exam - Constitutional Vitals: Temp Pulse Resp BP Pulse Ox 67 14 70/48 94 04/18/19 00:00 04/18/19 00:00 04/18/19 00:00 04/17/19 23:15 General appearance: Present: severe distress, other (Pale) - EENT Eyes: Present: PERRL ENT: hearing intact, clear oral mucosa - Neck Neck: Present: supple, normal ROM - Respiratory Respiratory effort: normal Respiratory: bilateral: rales - Cardiovascular Heart Sounds: Present: S1 & S2. Absent: rub, click - Extremities Extremities: pulses symmetrical Extremity abnormal: edema Peripheral Pulses: within normal limits - Abdominal General gastrointestinal: Present: soft, non-tender, normal bowel sounds, other (ascites) Female genitourinary: Present: normal - Integumentary Integumentary: Present: clear, warm, dry - Musculoskeletal Musculoskeletal: gait normal, strength equal bilaterally - Psychiatric Psychiatric: no intact judgment & insight, cooperative - Neurologic Neurologic: CNII-XII intact, moves all extremities, other (confused) Results - Labs CBC & Chem 7: 04/18/19 20:27 04/17/19 22:00 Labs: Laboratory Last Values WBC 2.1 K/mm3 (4.5-11.0) L 04/17/19 21:53 RBC 1.62 M/mm3 (3.65-5.03) L 04/17/19 21:53 Hgb 4.5 gm/dl (10.1-14.3) L* 04/17/19 21:53 Hct 13.7 % (30.3-42.9) L* 04/17/19 21:53 MCV 85 fl (79-97) 04/17/19 21:53 MCH 28 pg (28-32) 04/17/19 21:53 MCHC 33 % (30-34) 04/17/19 21:53 RDW 16.2 % (13.2-15.2) H 04/17/19 21:53 Plt Count 33 K/mm3 (140-440) L 04/17/19 21:53 Add Manual Diff Complete 04/17/19 21:53 Total Counted 100 04/17/19 21:53 Seg Neuts % (Manual) 82 % (40.0-70.0) H 04/17/19 21:53 Band Neutrophils % 0 % 04/17/19 21:53 Lymphocytes % (Manual) 17 % (13.4-35.0) 04/17/19 21:53 Reactive Lymphs % (Man) 0 % 04/17/19 21:53 Monocytes % (Manual) 1.0 % (0.0-7.3) 04/17/19 21:53 Eosinophils % (Manual) 0 % (0.0-4.3) 04/17/19 21:53 Basophils % (Manual) 0 % (0.0-1.8) 04/17/19 21:53 Metamyelocytes % 0 % 04/17/19 21:53 Myelocytes % 0 % 04/17/19 21:53 Promyelocytes % 0 % 04/17/19 21:53 Blast Cells % 0 % 04/17/19 21:53 Nucleated RBC % Not Reportable 04/17/19 21:53 Seg Neutrophils # Man 1.7 K/mm3 (1.8-7.7) L 04/17/19 21:53 Band Neutrophils # 0.0 K/mm3 04/17/19 21:53 Lymphocytes # (Manual) 0.3 K/mm3 (1.2-5.4) L 04/17/19 21:53 Abs React Lymphs (Man) 0.0 K/mm3 04/17/19 21:53 Monocytes # (Manual) 0.0 K/mm3 (0.0-0.8) 04/17/19 21:53 Eosinophils # (Manual) 0.0 K/mm3 (0.0-0.4) 04/17/19 21:53 Basophils # (Manual) 0.0 K/mm3 (0.0-0.1) 04/17/19 21:53 Metamyelocytes # 0.0 K/mm3 04/17/19 21:53 Myelocytes # 0.0 K/mm3 04/17/19 21:53 Promyelocytes # 0.0 K/mm3 04/17/19 21:53 Blast Cells # 0.0 K/mm3 04/17/19 21:53 WBC Morphology Not Reportable 04/17/19 21:53 Hypersegmented Neuts Not Reportable 04/17/19 21:53 Hyposegmented Neuts Not Reportable 04/17/19 21:53 Hypogranular Neuts Not Reportable 04/17/19 21:53 Smudge Cells Not Reportable 04/17/19 21:53 Toxic Granulation Not Reportable 04/17/19 21:53 Toxic Vacuolation Not Reportable 04/17/19 21:53 Dohle Bodies Not Reportable 04/17/19 21:53 Pelger-Huet Anomaly Not Reportable 04/17/19 21:53 Marcellus Rods Not Reportable 04/17/19 21:53 Platelet Estimate Appears decreased 04/17/19 21:53 Clumped Platelets Not Reportable 04/17/19 21:53 Plt Clumps, EDTA Not Reportable 04/17/19 21:53 Large Platelets Not Reportable 04/17/19 21:53 Giant Platelets Not Reportable 04/17/19 21:53 Platelet Satelliting Not Reportable 04/17/19 21:53 Plt Morphology Comment Not Reportable 04/17/19 21:53 RBC Morphology Not Reportable 04/17/19 21:53 Dimorphic RBCs Not Reportable 04/17/19 21:53 Polychromasia Not Reportable 04/17/19 21:53 Hypochromasia 2+ 04/17/19 21:53 Poikilocytosis Not Reportable 04/17/19 21:53 Anisocytosis Few 04/17/19 21:53 Microcytosis Not Reportable 04/17/19 21:53 Macrocytosis Not Reportable 04/17/19 21:53 Spherocytes Not Reportable 04/17/19 21:53 Pappenheimer Bodies Not Reportable 04/17/19 21:53 Sickle Cells Not Reportable 04/17/19 21:53 Target Cells 1+ 04/17/19 21:53 Tear Drop Cells Not Reportable 04/17/19 21:53 Ovalocytes Not Reportable 04/17/19 21:53 Helmet Cells Not Reportable 04/17/19 21:53 [place] Bodies Not Reportable 04/17/19 21:53 [place] Rings Not Reportable 04/17/19 21:53 [place] Cells Not Reportable 04/17/19 21:53 Bite Cells Not Reportable 04/17/19 21:53 Crenated Cell Not Reportable 04/17/19 21:53 Elliptocytes Not Reportable 04/17/19 21:53 Acanthocytes (Spur) Not Reportable 04/17/19 21:53 Rouleaux Not Reportable 04/17/19 21:53 Hemoglobin C Crystals Not Reportable 04/17/19 21:53 Schistocytes Not Reportable 04/17/19 21:53 Malaria parasites Not Reportable 04/17/19 21:53 Michael Bodies Not Reportable 04/17/19 21:53 Hem Pathologist Commnt No 04/17/19 21:53 PT 16.8 Sec. (12.2-14.9) H 04/17/19 21:53 INR 1.40 (0.87-1.13) H 04/17/19 21:53 APTT 48.0 Sec. (24.2-36.6) H 04/17/19 21:53 POC ABG pH 7.336 (7.35-7.45) L 04/17/19 23:20 POC ABG pCO2 54.9 (35-45) H 04/17/19 23:20 POC ABG HCO3 29.4 (22-26 mml/L) 04/17/19 23:20 POC ABG Total CO2 31 (23-27mmol/L) 04/17/19 23:20 POC ABG O2 Sat 55 04/17/19 23:20 POC ABG Base Excess 4 ((-2) - (+3)mmol/L) 04/17/19 23:20 FiO2 25 % 04/17/19 23:20 Sodium 134 mmol/L (137-145) L 04/17/19 22:00 Potassium 4.4 mmol/L (3.6-5.0) 04/17/19 22:00 Chloride 98.9 mmol/L (98-107) 04/17/19 22:00 Carbon Dioxide 28 mmol/L (22-30) 04/17/19 22:00 Anion Gap 12 mmol/L 04/17/19 22:00 BUN 83 mg/dL (7-17) H 04/17/19 22:00 Creatinine 3.2 mg/dL (0.7-1.2) H 04/17/19 22:00 Estimated GFR 18 ml/min 04/17/19 22:00 BUN/Creatinine Ratio 26 % 04/17/19 22:00 Glucose 102 mg/dL (65-100) H 04/17/19 22:00 Lactic Acid 1.70 mmol/L (0.7-2.0) 04/17/19 21:53 Calcium 7.0 mg/dL (8.4-10.2) L 04/17/19 22:00 Total Bilirubin 0.30 mg/dL (0.1-1.2) 04/17/19 22:00 AST 165 units/L (5-40) H 04/17/19 22:00 ALT 111 units/L (7-56) H 04/17/19 22:00 Alkaline Phosphatase 85 units/L (35-129) 04/17/19 22:00 NT-Pro-B Natriuret Pep 11355 pg/mL (0-900) H 04/17/19 22:00 Total Protein 4.5 g/dL (6.3-8.2) L 04/17/19 22:00 Albumin 2.0 g/dL (3.9-5) L 04/17/19 22:00 Albumin/Globulin Ratio 0.8 % 04/17/19 22:00 Urine Color Yellow (Yellow) 04/17/19 22:40 Urine Turbidity Turbid (Clear) 04/17/19 22:40 Urine pH 5.0 (5.0-7.0) 04/17/19 22:40 Ur Specific [place] 1.014 (1.003-1.030) 04/17/19 22:40 Urine Protein 100 mg/dl mg/dL (Negative) 04/17/19 22:40 Urine Glucose (UA) Neg mg/dL (Negative) 04/17/19 22:40 Urine Ketones Neg mg/dL (Negative) 04/17/19 22:40 Urine Blood Lg (Negative) 04/17/19 22:40 Urine Nitrite Neg (Negative) 04/17/19 22:40 Urine Bilirubin Neg (Negative) 04/17/19 22:40 Urine Urobilinogen < 2.0 mg/dL (<2.0) 04/17/19 22:40 Ur Leukocyte Esterase Lg (Negative) 04/17/19 22:40 Urine WBC (Auto) > 182.0 /HPF (0.0-6.0) H 04/17/19 22:40 Urine RBC (Auto) > 182.0 /HPF (0.0-6.0) 04/17/19 22:40 Urine Bacteria (Auto) 4+ /HPF (Negative) 04/17/19 22:40 Urine Mucus Few /HPF 04/17/19 22:40 Urine Yeast (Budding) 3+ /HPF 04/17/19 22:40 Assessment and Plan Assessment and plan: 58-year-old woman who is a resident of [facility] well-known to [facility]. History of end-stage renal disease on dialysis. Has been admitted multiple times for GI bleed due to peptic ulcer disease, history of multiple endoscopies. Who was brought to the hospital because she has not had dialysis since last . Seen at [place] [facility] for one day for hematemesis and then discharged. Per the patient's daughter for some reason she did not receive dialysis at [facility] nor does she received dialysis at [place] [facility]. She presents now with profound anemia, fluid overload, hypoxic respiratory failure, -Per family, she has not received dialysis since 6 days. -EGD 02/13/19 revealed large ulcer (4cm) on lesser curve; no visible vessel, mild gastritis, and small hiatal hernia (bx negative for H.pylori/malignancy) -s/p repeat EGD 03/01/19 that showed ulcerative esophagitis with adherent clot with underlying oozing of blood (clip x 1 with hemostasis), and large ulcer along lesser curvature as seen on prior endoscopy with necrosis appearance but no high risk bleeding lesions Acute blood loss anemia; most likely causes recurrent GI bleed. Blood transfusion ordered. Acute upper GI bleed, likely due to peptic ulcer disease; PPI twice daily, patient is not actively bleeding in the ER. Patient is put on strict n.p.o., all oral medications on hold. GI consult, End-stage renal disease, missed dialysis and anasarca; potassium is normal, BUN elevated, patient is very fluid overloaded. Nephrology consulted Sepsis/UTI; follow-up urine cultures, ID consult, continue empiric antibiotics Acute hypoxic respiratory failure; due to fluid overload from missed dialysis. She was put on BiPAP on arrival, continue BiPAP and supplemental oxygen as needed. Discussed with theology teacher, who recommends giving her 1 dose of Lasix followed by 1 unit of blood, after which she will be dialyzed in the morning and she will get 2 units of blood with dialysis in the morning. The patient is too unstable for dialysis at this time. Hypotension; question if this is due to septic shock versus anemia/hypovolemia. At this point leaning towards hypovolemia/anemia given her clinical findings. The patient is to get a unit of blood after Lasix. She has received antibiotics. Avoiding fluids due to anasarca, should she need fluid she will need to be intubated. ED physician attempted to place central line multiple times, he was unable to place it due to severe anasarca. She already has an EJ on the left side, avoiding placing IJ or SC on the other side as patient has a permacath Acute metabolic encephalopathy Improving with oxygen and blood transfusion. Type 2 diabetes; SSI Chronic COPD, hypothyroidism on Synthroid, DVT prophylaxis SCDs, avoid blood thinners in light of GI bleed. The high probability of a clinically significant, sudden or life threatening deterioration of the [cardiovascular, pulmonary, renal, GI, hematologic] system(s) required my full and direct attention, intervention and personal management. The aggregate critical care time was [44] minutes. This time is in addition to time spent performing reported procedures but includes the following: [] Data Review and interpretation [] Patient assessment and monitoring of vital signs [] Documentation [] Medication orders and management Advance Directives: Yes Plan of care discussed with patient/family: Yes
[2019-04-18] MEDS ORDERED: NON-FORMULARY (Albuterol Sulfate [Proair Respiclick] 2 PUFF) IH PRN (00:18)
[2019-04-18] MEDS ORDERED: PROVENTIL IH PRN (00:38)
[2019-04-18] MEDS ORDERED: LEVAQUIN 750MG/150ML 750 MG/150 ML BAG IV SCH (01:00)
[2019-04-18] MEDS: PROTONIX IV SCH ×3 (01:33→21:18)
[2019-04-18] MEDS ORDERED: SODIUM CHLORIDE FLUSH SYRINGE 10 ML IV PRN (02:09)
[2019-04-18] MEDS ORDERED: TYLENOL PO PRN (02:09)
[2019-04-18] MEDS ORDERED: ZOFRAN IV PRN (02:09)
[2019-04-18] MEDS: HumuLIN R SUB-Q SCH ×2 (08:38→12:13)
[2019-04-18] MEDS: SODIUM CHLORIDE FLUSH SYRINGE 10 ML IV SCH (10:00)
--- NOTE | 2019-04-18 10:09 | Consultation ---
History of Present Illness - Reason for Consult Consult date: 04/18/19 end stage renal disease Requesting physician: JEFERSON CALLES - History of Present Illness 58-year-old woman who is a resident of [facility] well-known to [facility]. History of end-stage renal disease on dialysis. Has been admitted multiple times for GI bleed due to peptic ulcer disease, history of multiple endoscopies. Was recently admitted to the hospital for vomiting blood. . History is limited due to the patient's dementia. But per her daughter the patient was discharged from [facility] on . She went back to [facility]. She was due for dialysis on Tuesday, but for some reason the daughter states that the patient never got dialysis, she did not get dialysis through the weekend. Then on Tuesday she was sent to [facility] for hematemesis. She was then discharged on Tuesday., Per her daughter she did not receive dialysis while at [facility], she did not receive EGD. Daughter was not sure why the patient was discharged. But she arrived back at [facility] and upon arrival the patient was confused, altered and short of breath. And then she was then sent to [facility] ER where she was find to have profound anemia, hypoxic respiratory failure and altered mental status and confusion. PAST MEDICAL HISTORY: History of multiple peptic ulcers, multiple admissions for GI bleed. CVA, end-stage renal disease on dialysis, sees CHF, hepatitis C, diabetes, hypothyroidism, hypertension, dementia, bipolar PAST SURGICAL HISTORY: Unknown FAMILY HISTORY:Unknown SOCIAL HISTORY: Denies tobacco, drugs, alcohol, [place] resident Active Meds: Active Medications Furosemide (Lasix) 80 mg IV ONCE ONE Stop: 04/18/19 00:07 Levofloxacin/Dextrose (Levaquin 750mg/150ml) 750 mg in 150 mls @ 100 mls/hr IV ONCE ONE Stop: 04/18/19 00:52 Last Admin: 04/17/19 23:48 Dose: 100 mls/hr Documented by: Review of Systems ROS unobtainable: due to mental status Medications and Allergies Allergies Allergy/AdvReac Type Severity Reaction Status Date / Time guaifenesin [From Robitussin] Allergy Hives Verified 02/09/19 07:00 Penicillins Allergy Hives Verified 02/09/19 07:00 Home Medications Medication Instructions Recorded Confirmed Last Taken Type Acetaminophen [Acetaminophen TAB] 650 mg PO Q12HR PRN 02/09/19 04/18/19 04/05/19 History Polyethylene Glycol 3350 [Miralax 17 gm PO DAILY 02/09/19 04/18/19 04/05/19 History 3350] Albuterol Sulfate [Proair 2 puff IH Q6HR PRN 02/28/19 04/18/19 04/05/19 History Respiclick] Antifungal 1% CREAM 1 pack TP DAILY 02/28/19 04/18/19 04/05/19 History Calcium Acetate [Phoslo] 667 mg PO TID 02/28/19 04/18/19 04/05/19 History Ferrous Sulfate [Feosol 325 MG tab] 325 mg PO BID 02/28/19 04/18/19 04/05/19 History Folic Acid [Folvite] 1 mg PO DAILY 02/28/19 04/18/19 04/05/19 History Glucagon (Human Recomb) [Glucagen] 1 mg IM Q15MIN PRN 02/28/19 04/18/19 04/05/19 History Insulin Lispro [Humalog 100 100 unit SQ PRN PRN 02/28/19 04/18/19 04/05/19 History UNITS/ML Kwikpen] Levothyroxine [Synthroid] 150 mcg PO QAM 02/28/19 04/18/19 04/05/19 History PARoxetine HCl [PARoxetine] 20 mg PO HS 02/28/19 04/18/19 04/05/19 History Sennosides Tab [Senokot] 1 tab PO HS PRN 02/28/19 04/18/19 04/05/19 History Thiamine [Vitamin B-1] 100 mg PO DAILY 02/28/19 04/18/19 04/05/19 History risperiDONE [Risperdal] 2 mg PO DAILY 02/28/19 04/18/19 04/05/19 History Pantoprazole [Protonix TAB] 40 mg PO BID 60 Days tablet 03/06/19 04/18/19 04/05/19 Rx AtorvaSTATin 80 mg PO HS 04/18/19 04/18/19 Unknown History Levothyroxine 150 mcg PO DAILY 04/18/19 04/18/19 Unknown History Midodrine 10 mg PO 3XW 04/18/19 04/18/19 Unknown History Active Meds: Active Medications Acetaminophen (Tylenol) 650 mg PO Q4H PRN PRN Reason: Pain MILD(1-3)/Fever >100.5/[place] Albuterol (Proventil) 2.5 mg IH Q6HRT PRN PRN Reason: Shortness Of Breath Dextrose (D50w (25gm) Syringe) 50 ml IV PRN PRN PRN Reason: Hypoglycemia Levofloxacin/Dextrose (Levaquin 500mg/100ml) 500 mg in 100 mls @ 100 mls/hr IV Q48HR [facility] Insulin Human Regular (Humulin R) 0 units SUB-Q ACHS ROSELINE; Protocol Last Admin: 04/18/19 08:38 Dose: Not Given Documented by: Ketoconazole (Nizoral) 1 applic TP DAILY [facility] Ondansetron HCl (Zofran) 4 mg IV Q8H PRN PRN Reason: Nausea And Vomiting Pantoprazole Sodium (Protonix) 40 mg IV BID [facility] Last Admin: 04/18/19 01:33 Dose: 40 mg Documented by: Sodium Chloride (Sodium Chloride Flush Syringe 10 Ml) 10 ml IV BID [facility] Sodium Chloride (Sodium Chloride Flush Syringe 10 Ml) 10 ml IV PRN PRN PRN Reason: LINE FLUSH Exam - Vital Signs Vital signs: Vital Signs Pulse Resp BP Pulse Ox 63 13 91/59 97 04/17/19 20:47 04/17/19 20:47 04/17/19 20:47 04/17/19 20:47 - Physical Exam Narrative exam: General appearance: Present: severe distress, other (Pale) - EENT Eyes: Present: PERRL ENT: hearing intact, clear oral mucosa - Neck Neck: Present: supple, normal ROM - Respiratory Respiratory effort: normal Respiratory: bilateral: rales - Cardiovascular Heart Sounds: Present: S1 & S2. Absent: rub, click - Extremities Extremities: pulses symmetrical Extremity abnormal: edema Peripheral Pulses: within normal limits - Abdominal General gastrointestinal: Present: soft, non-tender, normal bowel sounds, other (ascites) Female genitourinary: Present: normal - Integumentary Integumentary: Present: clear, warm, dry - Musculoskeletal Musculoskeletal: gait normal, strength equal bilaterally - Psychiatric Psychiatric: no intact judgment & insight, cooperative - Neurologic Neurologic: CNII-XII intact, moves all extremities Results - Lab Results 04/17/19 21:53 10/08/19 22:00 Most recent lab results Calcium 7.0 mg/dL (8.4-10.2) L 04/17/19 22:00 Assessment and Plan Assessment: -ESRD on HD- MWF at [facility] -CAD -hematemesis -anemia acute blood loss POA Plan: -continue HD once hb is adequate, not enough blood volume for dialysis at this time -appreciate cardiology and GI input -will provide ESAs as indicated serial H/H, needs prbcs -avoid nephrotoxins, renally dose all medications -strict Is/Os
[2019-04-18] MEDS ORDERED: PROCRIT IV PRN (10:13)
--- NOTE | 2019-04-18 11:39 | Gastroenterology Consultation ---
History of Present Illness - Reason for Consult Consult date: 04/18/19 severe anemia, gi bleed Requesting physician: MARK THOMPSON - History of Present Illness Ms Bess is a 58 yo aaf, well known to GI service for prior admission for UGI bleeding (gastric ulcers, erosive esophagitis), who presents with sob/respiratory distress, hypotension, and AMS. History obtained from chart review, staff, and pt's son at bedside. Pt awake but unable to recall/provide details prior to admission. She reportedly missed dialysis sessions in the past 1 week, but unable to give further details regarding this. Pt found to have acute on chronic anemia, along with worsening thrombocytopenia on labs. Pt does not recall the color of her bm's prior to admission; stool at the time of exam was dark/tarry appearing. blood transfusions pending, and pt to receive dialysis today. Past History Past Medical History: ESRD, heart failure, hepatitis, hypertension, other (dementia, bipolar disorder, peptic ulcer disease) Past Surgical History: Other (embolization of gatric ulcer) Social history: other ([place]ives in [facility]) Family history: no significant family history Medications and Allergies Allergies Allergy/AdvReac Type Severity Reaction Status Date / Time guaifenesin [From Robitussin] Allergy Hives Verified 02/09/19 07:00 Penicillins Allergy Hives Verified 02/09/19 07:00 Home Medications Medication Instructions Recorded Confirmed Last Taken Type Acetaminophen [Acetaminophen TAB] 650 mg PO Q12HR PRN 02/09/19 04/18/19 04/05/19 History Polyethylene Glycol 3350 [Miralax 17 gm PO DAILY 02/09/19 04/18/19 04/05/19 History 3350] Albuterol Sulfate [Proair 2 puff IH Q6HR PRN 02/28/19 04/18/19 04/05/19 History Respiclick] Antifungal 1% CREAM 1 pack TP DAILY 02/28/19 04/18/19 04/05/19 History Calcium Acetate [Phoslo] 667 mg PO TID 02/28/19 04/18/19 04/05/19 History Ferrous Sulfate [Feosol 325 MG tab] 325 mg PO BID 02/28/19 04/18/19 04/05/19 History Folic Acid [Folvite] 1 mg PO DAILY 02/28/19 04/18/19 04/05/19 History Glucagon (Human Recomb) [Glucagen] 1 mg IM Q15MIN PRN 02/28/19 04/18/19 04/05/19 History Insulin Lispro [Humalog 100 100 unit SQ PRN PRN 02/28/19 04/18/19 04/05/19 History UNITS/ML Kwikpen] Levothyroxine [Synthroid] 150 mcg PO QAM 02/28/19 04/18/19 04/05/19 History PARoxetine HCl [PARoxetine] 20 mg PO HS 02/28/19 04/18/19 04/05/19 History Sennosides Tab [Senokot] 1 tab PO HS PRN 02/28/19 04/18/19 04/05/19 History Thiamine [Vitamin B-1] 100 mg PO DAILY 02/28/19 04/18/19 04/05/19 History risperiDONE [Risperdal] 2 mg PO DAILY 02/28/19 04/18/19 04/05/19 History Pantoprazole [Protonix TAB] 40 mg PO BID 60 Days tablet 03/06/19 04/18/19 04/05/19 Rx AtorvaSTATin 80 mg PO HS 04/18/19 04/18/19 Unknown History Levothyroxine 150 mcg PO DAILY 04/18/19 04/18/19 Unknown History Midodrine 10 mg PO 3XW 04/18/19 04/18/19 Unknown History Active Meds: Active Medications Acetaminophen (Tylenol) 650 mg PO Q4H PRN PRN Reason: Pain MILD(1-3)/Fever >100.5/SEYMOUR Albuterol (Proventil) 2.5 mg IH Q6HRT PRN PRN Reason: Shortness Of Breath Dextrose (D50w (25gm) Syringe) 50 ml IV PRN PRN PRN Reason: Hypoglycemia Epoetin Jean Carlos (Procrit) 20,000 unit IV MARCELA PRN PRN Reason: hemodialysis Levofloxacin/Dextrose (Levaquin 500mg/100ml) 500 mg in 100 mls @ 100 mls/hr IV Q48HR ROSELINE Insulin Human Regular (Humulin R) 0 units SUB-Q ACHS ROSELINE; Protocol Last Admin: 04/18/19 08:38 Dose: Not Given Documented by: Ketoconazole (Nizoral) 1 applic TP DAILY ROSELINE Ondansetron HCl (Zofran) 4 mg IV Q8H PRN PRN Reason: Nausea And Vomiting Pantoprazole Sodium (Protonix) 40 mg IV BID ON LICENSE OF [facility] Last Admin: 04/18/19 01:33 Dose: 40 mg Documented by: Sodium Chloride (Sodium Chloride Flush Syringe 10 Ml) 10 ml IV BID ON LICENSE OF [facility] Sodium Chloride (Sodium Chloride Flush Syringe 10 Ml) 10 ml IV PRN PRN PRN Reason: LINE FLUSH Reviwed/updated patient's home and current medications. Review of Systems - Review of Systems ROS unobtainable: due to mental status Exam - Constitutional Vital Signs: Temp Pulse Resp BP Pulse Ox 90.4 F L 73 12 89/55 100 04/18/19 10:50 04/18/19 11:20 04/18/19 11:20 04/18/19 11:20 04/18/19 11:20 General appearance: no acute distress, obese - EENT ENT: hearing intact - Respiratory Respiratory effort: normal Respiratory: bilateral: CTA - Cardiovascular Rhythm: regular Heart Sounds: Present: S1 & S2 Extremity abnormal: edema, other (anasarca) - Gastrointestinal Rectal Exam: stool dark - Neurologic Neurological: oriented to person, disoriented - Psychiatric Psychiatric: other (+ memory loss) - Labs CBC & Chem 7: 04/17/19 21:53 04/17/19 22:00 Lab Results: Laboratory Results - last 24 hr 04/17/19 04/17/19 04/17/19 21:53 21:53 21:53 WBC 2.1 L RBC 1.62 L Hgb 4.5 L* Hct 13.7 L* MCV 85 MCH 28 MCHC 33 RDW 16.2 H Plt Count 33 L Add Manual Diff Complete Total Counted 100 Seg Neuts % (Manual) 82 H Band Neutrophils % 0 Lymphocytes % (Manual) 17 Reactive Lymphs % (Man) 0 Monocytes % (Manual) 1.0 Eosinophils % (Manual) 0 Basophils % (Manual) 0 Metamyelocytes % 0 Myelocytes % 0 Promyelocytes % 0 Blast Cells % 0 Nucleated RBC % Not Reportable Seg Neutrophils # Man 1.7 L Band Neutrophils # 0.0 Lymphocytes # (Manual) 0.3 L Abs React Lymphs (Man) 0.0 Monocytes # (Manual) 0.0 Eosinophils # (Manual) 0.0 Basophils # (Manual) 0.0 Metamyelocytes # 0.0 Myelocytes # 0.0 Promyelocytes # 0.0 Blast Cells # 0.0 WBC Morphology Not Reportable Hypersegmented Neuts Not Reportable Hyposegmented Neuts Not Reportable Hypogranular Neuts Not Reportable Smudge Cells Not Reportable Toxic Granulation Not Reportable Toxic Vacuolation Not Reportable Dohle Bodies Not Reportable Pelger-Huet Anomaly Not Reportable Marcellus Rods Not Reportable Platelet Estimate Appears decreased Clumped Platelets Not Reportable Plt Clumps, EDTA Not Reportable Large Platelets Not Reportable Giant Platelets Not Reportable Platelet Satelliting Not Reportable Plt Morphology Comment Not Reportable RBC Morphology Not Reportable Dimorphic RBCs Not Reportable Polychromasia Not Reportable Hypochromasia 2+ Poikilocytosis Not Reportable Anisocytosis Few Microcytosis Not Reportable Macrocytosis Not Reportable Spherocytes Not Reportable Pappenheimer Bodies Not Reportable Sickle Cells Not Reportable Target Cells 1+ Tear Drop Cells Not Reportable Ovalocytes Not Reportable Helmet Cells Not Reportable [place] Bodies Not Reportable [place] Rings Not Reportable John Cells Not Reportable Bite Cells Not Reportable Crenated Cell Not Reportable Elliptocytes Not Reportable Acanthocytes (Spur) Not Reportable Rouleaux Not Reportable Hemoglobin C Crystals Not Reportable Schistocytes Not Reportable Malaria parasites Not Reportable Michael Bodies Not Reportable Hem Pathologist Commnt No PT 16.8 H INR 1.40 H APTT 48.0 H POC ABG pH POC ABG pCO2 POC ABG HCO3 POC ABG Total CO2 POC ABG O2 Sat POC ABG Base Excess FiO2 Sodium Potassium Chloride Carbon Dioxide Anion Gap BUN Creatinine Estimated GFR BUN/Creatinine Ratio Glucose POC Glucose Lactic Acid 1.70 Calcium Total Bilirubin AST ALT Alkaline Phosphatase NT-Pro-B Natriuret Pep Total Protein Albumin Albumin/Globulin Ratio Urine Color Urine Turbidity Urine pH Ur Specific [place] Urine Protein Urine Glucose (UA) Urine Ketones Urine Blood Urine Nitrite Urine Bilirubin Urine Urobilinogen Ur Leukocyte Esterase Urine WBC (Auto) Urine RBC (Auto) Urine Bacteria (Auto) Urine Mucus Urine Yeast (Budding) Blood Type Antibody Screen Crossmatch 04/17/19 04/17/19 04/17/19 22:00 22:00 22:40 WBC RBC Hgb Hct MCV MCH MCHC RDW Plt Count Add Manual Diff Total Counted Seg Neuts % (Manual) Band Neutrophils % Lymphocytes % (Manual) Reactive Lymphs % (Man) Monocytes % (Manual) Eosinophils % (Manual) Basophils % (Manual) Metamyelocytes % Myelocytes % Promyelocytes % Blast Cells % Nucleated RBC % Seg Neutrophils # Man Band Neutrophils # Lymphocytes # (Manual) Abs React Lymphs (Man) Monocytes # (Manual) Eosinophils # (Manual) Basophils # (Manual) Metamyelocytes # Myelocytes # Promyelocytes # Blast Cells # WBC Morphology Hypersegmented Neuts Hyposegmented Neuts Hypogranular Neuts Smudge Cells Toxic Granulation Toxic Vacuolation Dohle Bodies Pelger-Huet Anomaly Marcellus Rods Platelet Estimate Clumped Platelets Plt Clumps, EDTA Large Platelets Giant Platelets Platelet Satelliting Plt Morphology Comment RBC Morphology Dimorphic RBCs Polychromasia Hypochromasia Poikilocytosis Anisocytosis Microcytosis Macrocytosis Spherocytes Pappenheimer Bodies Sickle Cells Target Cells Tear Drop Cells Ovalocytes Helmet Cells [place] Bodies [place] Rings [place] Cells Bite Cells Crenated Cell Elliptocytes Acanthocytes (Spur) Rouleaux Hemoglobin C Crystals Schistocytes Malaria parasites Michael Bodies Hem Pathologist Commnt PT INR APTT POC ABG pH POC ABG pCO2 POC ABG HCO3 POC ABG Total CO2 POC ABG O2 Sat POC ABG Base Excess FiO2 Sodium 134 L Potassium 4.4 Chloride 98.9 Carbon Dioxide 28 Anion Gap 12 BUN 83 H Creatinine 3.2 H Estimated GFR 18 BUN/Creatinine Ratio 26 Glucose 102 H POC Glucose Lactic Acid Calcium 7.0 L Total Bilirubin 0.30 AST 165 H ALT 111 H Alkaline Phosphatase 85 NT-Pro-B Natriuret Pep 57362 H Total Protein 4.5 L Albumin 2.0 L Albumin/Globulin Ratio 0.8 Urine Color Yellow Urine Turbidity Turbid Urine pH 5.0 Ur Specific [place] 1.014 Urine Protein 100 mg/dl Urine Glucose (UA) Neg Urine Ketones Neg Urine Blood Lg Urine Nitrite Neg Urine Bilirubin Neg Urine Urobilinogen < 2.0 Ur Leukocyte Esterase Lg Urine WBC (Auto) > 182.0 H Urine RBC (Auto) > 182.0 Urine Bacteria (Auto) 4+ Urine Mucus Few Urine Yeast (Budding) 3+ Blood Type Antibody Screen Crossmatch 04/17/19 04/17/19 04/18/19 23:20 23:41 00:18 WBC RBC Hgb Hct MCV MCH MCHC RDW Plt Count Add Manual Diff Total Counted Seg Neuts % (Manual) Band Neutrophils % Lymphocytes % (Manual) Reactive Lymphs % (Man) Monocytes % (Manual) Eosinophils % (Manual) Basophils % (Manual) Metamyelocytes % Myelocytes % Promyelocytes % Blast Cells % Nucleated RBC % Seg Neutrophils # Man Band Neutrophils # Lymphocytes # (Manual) Abs React Lymphs (Man) Monocytes # (Manual) Eosinophils # (Manual) Basophils # (Manual) Metamyelocytes # Myelocytes # Promyelocytes # Blast Cells # WBC Morphology Hypersegmented Neuts Hyposegmented Neuts Hypogranular Neuts Smudge Cells Toxic Granulation Toxic Vacuolation Dohle Bodies Pelger-Huet Anomaly Marcellus Rods Platelet Estimate Clumped Platelets Plt Clumps, EDTA Large Platelets Giant Platelets Platelet Satelliting Plt Morphology Comment RBC Morphology Dimorphic RBCs Polychromasia Hypochromasia Poikilocytosis Anisocytosis Microcytosis Macrocytosis Spherocytes Pappenheimer Bodies Sickle Cells Target Cells Tear Drop Cells Ovalocytes Helmet Cells [place] Bodies [place] Rings John Cells Bite Cells Crenated Cell Elliptocytes Acanthocytes (Spur) Rouleaux Hemoglobin C Crystals Schistocytes Malaria parasites Michael Bodies Hem Pathologist Commnt PT INR APTT POC ABG pH 7.336 L POC ABG pCO2 54.9 H POC ABG HCO3 29.4 POC ABG Total CO2 31 POC ABG O2 Sat 55 POC ABG Base Excess 4 FiO2 25 Sodium Potassium Chloride Carbon Dioxide Anion Gap BUN Creatinine Estimated GFR BUN/Creatinine Ratio Glucose POC Glucose Lactic Acid 1.80 Calcium Total Bilirubin AST ALT Alkaline Phosphatase NT-Pro-B Natriuret Pep Total Protein Albumin Albumin/Globulin Ratio Urine Color Urine Turbidity Urine pH Ur Specific [place] Urine Protein Urine Glucose (UA) Urine Ketones Urine Blood Urine Nitrite Urine Bilirubin Urine Urobilinogen Ur Leukocyte Esterase Urine WBC (Auto) Urine RBC (Auto) Urine Bacteria (Auto) Urine Mucus Urine Yeast (Budding) Blood Type B POSITIVE Antibody Screen Negative Crossmatch See Detail 04/18/19 08:01 WBC RBC Hgb Hct MCV MCH MCHC RDW Plt Count Add Manual Diff Total Counted Seg Neuts % (Manual) Band Neutrophils % Lymphocytes % (Manual) Reactive Lymphs % (Man) Monocytes % (Manual) Eosinophils % (Manual) Basophils % (Manual) Metamyelocytes % Myelocytes % Promyelocytes % Blast Cells % Nucleated RBC % Seg Neutrophils # Man Band Neutrophils # Lymphocytes # (Manual) Abs React Lymphs (Man) Monocytes # (Manual) Eosinophils # (Manual) Basophils # (Manual) Metamyelocytes # Myelocytes # Promyelocytes # Blast Cells # WBC Morphology Hypersegmented Neuts Hyposegmented Neuts Hypogranular Neuts Smudge Cells Toxic Granulation Toxic Vacuolation Dohle Bodies Pelger-Huet Anomaly Marcellus Rods Platelet Estimate Clumped Platelets Plt Clumps, EDTA Large Platelets Giant Platelets Platelet Satelliting Plt Morphology Comment RBC Morphology Dimorphic RBCs Polychromasia Hypochromasia Poikilocytosis Anisocytosis Microcytosis Macrocytosis Spherocytes Pappenheimer Bodies Sickle Cells Target Cells Tear Drop Cells Ovalocytes Helmet Cells [place] Bodies [place] Rings John Cells Bite Cells Crenated Cell Elliptocytes Acanthocytes (Spur) Rouleaux Hemoglobin C Crystals Schistocytes Malaria parasites Michael Bodies Hem Pathologist Commnt PT INR APTT POC ABG pH POC ABG pCO2 POC ABG HCO3 POC ABG Total CO2 POC ABG O2 Sat POC ABG Base Excess FiO2 Sodium Potassium Chloride Carbon Dioxide Anion Gap BUN Creatinine Estimated GFR BUN/Creatinine Ratio Glucose POC Glucose 103 Lactic Acid Calcium Total Bilirubin AST ALT Alkaline Phosphatase NT-Pro-B Natriuret Pep Total Protein Albumin Albumin/Globulin Ratio Urine Color Urine Turbidity Urine pH Ur Specific [place] Urine Protein Urine Glucose (UA) Urine Ketones Urine Blood Urine Nitrite Urine Bilirubin Urine Urobilinogen Ur Leukocyte Esterase Urine WBC (Auto) Urine RBC (Auto) Urine Bacteria (Auto) Urine Mucus Urine Yeast (Budding) Blood Type Antibody Screen Crossmatch Assessment and Plan 1. Acute on chronic anemia - dark/black appearing stools on rectal exam; known h/o prior bleeding gastric ulcer and ulcerative esophagitis. transfusions (blood and platelets) today, trend labs and PPI drip. Will plan for EGD likely tomorrow based on labs and clinical course 2. ESRD - missed recent dialysis sessions and planned for dialysis today 3. Thrombocytopenia - platelet transfusions in setting of GI bleed
[2019-04-18] MEDS: LEVAQUIN 500MG/100ML 500 MG/100 ML BAG IV SCH (12:06)
[2019-04-18] MEDS: NIZORAL TP SCH (12:12)
--- NOTE | 2019-04-18 12:15 | Procedure Note ---
Date of procedure: 04/18/19 Pre-op diagnosis: Ascities, concern for SBP Post-op diagnosis: same Procedure: Beside paracentesis. Using the ultrasound to find a decent pocket of fluid. Lidocaine used to obtain numbing. Using a spinal needle and a 60cc syringe, 600 cc's of yellow fluid removed without difficulty. Band-aid applied. Patient tolerated procedure well. Anesthesia: local Surgeon: KEYONA KAUFMAN Estimated blood loss: none Pathology: none Specimen disposition: to lab Condition: critical Disposition: ICU
--- NOTE | 2019-04-18 12:22 | Consultation ---
History of Present Illness - Reason for Consult Consult date: 04/18/19 GI bleed - History of Present Illness 58 y/o female with complex past medical history admitted to the ICU for GI bleed. Patient has been admitted several times for GI bleed and acute blood loss anemia. Has had IR interventions in the past as well as several scopes. HgB again this admission was 4. Currently on her 2nd unit of PRBC's. Somewhat confused but awake. Son at bedside. Also hypothermic. Leukopoenic. Has large volume ascities and has been tapped in the past. She cannot nor does her son remember or know if she has ever had SBP. Past History Past Medical History: ESRD, heart failure, hepatitis, hypertension, other (dementia, bipolar disorder, peptic ulcer disease) Past Surgical History: Other (embolization of gatric ulcer) Social history: other (lives in [facility]) Family history: no significant family history Medications and Allergies Allergies Allergy/AdvReac Type Severity Reaction Status Date / Time guaifenesin [From Robitussin] Allergy Hives Verified 02/09/19 07:00 Penicillins Allergy Hives Verified 02/09/19 07:00 Home Medications Medication Instructions Recorded Confirmed Last Taken Type Acetaminophen [Acetaminophen TAB] 650 mg PO Q12HR PRN 02/09/19 04/18/19 04/05/19 History Polyethylene Glycol 3350 [Miralax 17 gm PO DAILY 02/09/19 04/18/19 04/05/19 History 3350] Albuterol Sulfate [Proair 2 puff IH Q6HR PRN 02/28/19 04/18/19 04/05/19 History Respiclick] Antifungal 1% CREAM 1 pack TP DAILY 02/28/19 04/18/19 04/05/19 History Calcium Acetate [Phoslo] 667 mg PO TID 02/28/19 04/18/19 04/05/19 History Ferrous Sulfate [Feosol 325 MG tab] 325 mg PO BID 02/28/19 04/18/19 04/05/19 History Folic Acid [Folvite] 1 mg PO DAILY 02/28/19 04/18/19 04/05/19 History Glucagon (Human Recomb) [Glucagen] 1 mg IM Q15MIN PRN 02/28/19 04/18/19 04/05/19 History Insulin Lispro [Humalog 100 100 unit SQ PRN PRN 02/28/19 04/18/19 04/05/19 History UNITS/ML Kwikpen] Levothyroxine [Synthroid] 150 mcg PO QAM 02/28/19 04/18/19 04/05/19 History PARoxetine HCl [PARoxetine] 20 mg PO HS 02/28/19 04/18/19 04/05/19 History Sennosides Tab [Senokot] 1 tab PO HS PRN 02/28/19 04/18/19 04/05/19 History Thiamine [Vitamin B-1] 100 mg PO DAILY 02/28/19 04/18/19 04/05/19 History risperiDONE [Risperdal] 2 mg PO DAILY 02/28/19 04/18/19 04/05/19 History Pantoprazole [Protonix TAB] 40 mg PO BID 60 Days tablet 03/06/19 04/18/19 04/05/19 Rx AtorvaSTATin 80 mg PO HS 04/18/19 04/18/19 Unknown History Levothyroxine 150 mcg PO DAILY 04/18/19 04/18/19 Unknown History Midodrine 10 mg PO 3XW 04/18/19 04/18/19 Unknown History Active Meds: Active Medications Acetaminophen (Tylenol) 650 mg PO Q4H PRN PRN Reason: Pain MILD(1-3)/Fever >100.5/SEYMOUR Albuterol (Proventil) 2.5 mg IH Q6HRT PRN PRN Reason: Shortness Of Breath Dextrose (D50w (25gm) Syringe) 50 ml IV PRN PRN PRN Reason: Hypoglycemia Epoetin Jean Carlos (Procrit) 20,000 unit IV MARCELA PRN PRN Reason: hemodialysis Levofloxacin/Dextrose (Levaquin 500mg/100ml) 500 mg in 100 mls @ 100 mls/hr IV Q48HR ROSELINE Last Admin: 04/18/19 12:06 Dose: 100 mls/hr Documented by: Pantoprazole Sodium 80 mg/ (Sodium Chloride) 100 mls @ 10 mls/hr IV DIRECT ROSELINE Insulin Human Regular (Humulin R) 0 units SUB-Q ACHS ROSELINE; Protocol Last Admin: 04/18/19 12:13 Dose: Not Given Documented by: Ketoconazole (Nizoral) 1 applic TP DAILY ROSELINE Last Admin: 04/18/19 12:12 Dose: 1 applic Documented by: Ondansetron HCl (Zofran) 4 mg IV Q8H PRN PRN Reason: Nausea And Vomiting Pantoprazole Sodium (Protonix) 40 mg IV BID [facility] Last Admin: 04/18/19 11:39 Dose: 40 mg Documented by: Sodium Chloride (Sodium Chloride Flush Syringe 10 Ml) 10 ml IV BID [facility] Last Admin: 04/18/19 10:00 Dose: 10 ml Documented by: Sodium Chloride (Sodium Chloride Flush Syringe 10 Ml) 10 ml IV PRN PRN PRN Reason: LINE FLUSH Review of Systems All systems: negative Exam - Constitutional Vitals: Temp Pulse Resp BP Pulse Ox 90.0 F L 70 9 L 98/67 100 04/18/19 12:00 04/18/19 12:10 04/18/19 12:10 04/18/19 12:10 04/18/19 12:10 General appearance: Present: no acute distress, obese - EENT Eyes: Present: PERRL, EOM intact ENT: hearing intact, clear oral mucosa, poor dentition - Neck Neck: Present: supple - Respiratory Respiratory effort: normal Respiratory: bilateral: diminished - Cardiovascular Rhythm: regular Heart Sounds: Present: S1 & S2 - Extremities Extremity abnormal: edema - Abdominal General gastrointestinal: Present: soft, distended, other (massive fluid wave) Female genitourinary: Present: deferred - Rectal Rectal Exam: deferred Results - Labs CBC & Chem 7: 04/17/19 21:53 04/17/19 22:00 Labs: Abnormal lab results 04/17/19 04/17/19 04/17/19 Range/Units 21:53 21:53 22:00 WBC 2.1 L (4.5-11.0) K/mm3 RBC 1.62 L (3.65-5.03) M/mm3 Hgb 4.5 L* (10.1-14.3) gm/dl Hct 13.7 L* (30.3-42.9) % RDW 16.2 H (13.2-15.2) % Plt Count 33 L (140-440) K/mm3 Seg Neuts % (Manual) 82 H (40.0-70.0) % Seg Neutrophils # Man 1.7 L (1.8-7.7) K/mm3 Lymphocytes # (Manual) 0.3 L (1.2-5.4) K/mm3 PT 16.8 H (12.2-14.9) Sec. INR 1.40 H (0.87-1.13) APTT 48.0 H (24.2-36.6) Sec. POC ABG pH (7.35-7.45) POC ABG pCO2 (35-45) Sodium (137-145) mmol/L BUN (7-17) mg/dL Creatinine (0.7-1.2) mg/dL Glucose (65-100) mg/dL Calcium (8.4-10.2) mg/dL AST (5-40) units/L ALT (7-56) units/L NT-Pro-B Natriuret Pep 33936 H (0-900) pg/mL Total Protein (6.3-8.2) g/dL Albumin (3.9-5) g/dL Urine WBC (Auto) (0.0-6.0) /HPF Crossmatch 04/17/19 04/17/19 04/17/19 Range/Units 22:00 22:40 23:20 WBC (4.5-11.0) K/mm3 RBC (3.65-5.03) M/mm3 Hgb (10.1-14.3) gm/dl Hct (30.3-42.9) % RDW (13.2-15.2) % Plt Count (140-440) K/mm3 Seg Neuts % (Manual) (40.0-70.0) % Seg Neutrophils # Man (1.8-7.7) K/mm3 Lymphocytes # (Manual) (1.2-5.4) K/mm3 PT (12.2-14.9) Sec. INR (0.87-1.13) APTT (24.2-36.6) Sec. POC ABG pH 7.336 L (7.35-7.45) POC ABG pCO2 54.9 H (35-45) Sodium 134 L (137-145) mmol/L BUN 83 H (7-17) mg/dL Creatinine 3.2 H (0.7-1.2) mg/dL Glucose 102 H (65-100) mg/dL Calcium 7.0 L (8.4-10.2) mg/dL AST 165 H (5-40) units/L ALT 111 H (7-56) units/L NT-Pro-B Natriuret Pep (0-900) pg/mL Total Protein 4.5 L (6.3-8.2) g/dL Albumin 2.0 L (3.9-5) g/dL Urine WBC (Auto) > 182.0 H (0.0-6.0) /HPF Crossmatch 04/17/19 Range/Units 23:41 WBC (4.5-11.0) K/mm3 RBC (3.65-5.03) M/mm3 Hgb (10.1-14.3) gm/dl Hct (30.3-42.9) % RDW (13.2-15.2) % Plt Count (140-440) K/mm3 Seg Neuts % (Manual) (40.0-70.0) % Seg Neutrophils # Man (1.8-7.7) K/mm3 Lymphocytes # (Manual) (1.2-5.4) K/mm3 PT (12.2-14.9) Sec. INR (0.87-1.13) APTT (24.2-36.6) Sec. POC ABG pH (7.35-7.45) POC ABG pCO2 (35-45) Sodium (137-145) mmol/L BUN (7-17) mg/dL Creatinine (0.7-1.2) mg/dL Glucose (65-100) mg/dL Calcium (8.4-10.2) mg/dL AST (5-40) units/L ALT (7-56) units/L NT-Pro-B Natriuret Pep (0-900) pg/mL Total Protein (6.3-8.2) g/dL Albumin (3.9-5) g/dL Urine WBC (Auto) (0.0-6.0) /HPF Crossmatch See Detail - Imaging and Cardiology Chest x-ray: image reviewed (cardiomegaly but normal lung shipman) Assessment and Plan 58 y/o female admitted with GI bleed, and hypothermia, concern for SBP 1. Bedside diagnostic paracentesis done. 60cc of fluid removed and sent to lab. Once more stable will send down for large volume paracentesis 2. Transfuse all available blood units. q6h H/H's. Thrombocytopenia appears to be chronic and likely related to underlying liver disease. 3. HD per renal 4. Was already on levaquin. Added Flagyl Guarded prognosis CCT 31 minutes.
[2019-04-18] MEDS: PROTONIX 80 MG in NACL 0.9% 100 ML IV SCH ×2 (12:31→22:11)
[2019-04-18] MEDS ORDERED: NACL 0.9% 500 ML 500 ML IV NR (12:54)
--- NOTE | 2019-04-18 13:04 | Event Note ---
Date: 04/18/19 58 y/o male was admitted to the floor for severe anmia, thrombocytopenia, GI bleed, ascites, hypothermia to ICU. patient will get 3 units of PRBC, 1 unit ofplatelet , HD, antibiotics. GI, nephrology, and pulmonary following the patient. Continue management as outlined in H/P and consultants recommendations.
[2019-04-18 14:39] LABS: Total Cells Counted 100 /mm3
--- NOTE | 2019-04-18 16:19 | Consultation ---
History of Present Illness - Reason for Consult Consult date: 04/18/19 sepsis Requesting physician: MARK THOMPSON - History of Present Illness 58 y/o female with history of recurrent GI, ESRD on HD, CHF, CVA, chronic anemia, diabetes, schizophrenia, ascites (secondary to poor nutrition/ESRD, no evidence of liver disease), and recent multiple admissions for recurrent upper GI bleed admitted on 04/17/2019 due to AMS and SOB. Patient was discharged from [facility] 04/17 and as soon as she was evaluated by halfway staff she was found altered and confused. It seems she missed 2 HDs. Of note, she is s/p empiric embolization of L gastric artery 02/10/2019. EGD 02/13/19 revealed large ulcer (4cm) on lesser curve; no visible vessel, mild gastritis, and small hiatal hernia (bx negative for H.pylori/malignancy) s/p repeat EGD 03/01/19 that showed ulcerative esophagitis with adherent clot with underlying oozing of blood (clip x 1 with hemostasis), and large ulcer along lesser curvature as seen on prior endoscopy with necrosis appearance but no high risk bleeding lesions. She has a negative colonoscopy at [facility] per pt report 01/2019. Patient has dementia and in not clear of all medical details. In the ED, temp 98.2-->90, HR 63, R 13, BP 91/59, O2 97. WBC 2.1. Hg 4.5. Plat 33. Seg 82%. Creat 3.2. UA large LE, wbc 182. Blood culture 04/17/2019 n growth today. CXR negative. CT head negative. ID consulted for further management of sepsis. Review of Systems: limited due to dementia Past History Past Medical History: ESRD, heart failure, hepatitis, hypertension, other (dementia, bipolar disorder, peptic ulcer disease) Past Surgical History: Other (embolization of gatric ulcer) Social history: other (lives in halfway) Family history: no significant family history Medications and Allergies Allergies Allergy/AdvReac Type Severity Reaction Status Date / Time guaifenesin [From Robitussin] Allergy Hives Verified 02/09/19 07:00 Penicillins Allergy Hives Verified 02/09/19 07:00 Home Medications Medication Instructions Recorded Confirmed Last Taken Type Acetaminophen [Acetaminophen TAB] 650 mg PO Q12HR PRN 02/09/19 04/18/19 04/05/19 History Polyethylene Glycol 3350 [Miralax 17 gm PO DAILY 02/09/19 04/18/19 04/05/19 History 3350] Albuterol Sulfate [Proair 2 puff IH Q6HR PRN 02/28/19 04/18/19 04/05/19 History Respiclick] Antifungal 1% CREAM 1 pack TP DAILY 02/28/19 04/18/19 04/05/19 History Calcium Acetate [Phoslo] 667 mg PO TID 02/28/19 04/18/19 04/05/19 History Ferrous Sulfate [Feosol 325 MG tab] 325 mg PO BID 02/28/19 04/18/19 04/05/19 History Folic Acid [Folvite] 1 mg PO DAILY 02/28/19 04/18/19 04/05/19 History Glucagon (Human Recomb) [Glucagen] 1 mg IM Q15MIN PRN 02/28/19 04/18/19 04/05/19 History Insulin Lispro [Humalog 100 100 unit SQ PRN PRN 02/28/19 04/18/19 04/05/19 History UNITS/ML Kwikpen] Levothyroxine [Synthroid] 150 mcg PO QAM 02/28/19 04/18/19 04/05/19 History PARoxetine HCl [PARoxetine] 20 mg PO HS 02/28/19 04/18/19 04/05/19 History Sennosides Tab [Senokot] 1 tab PO HS PRN 02/28/19 04/18/19 04/05/19 History Thiamine [Vitamin B-1] 100 mg PO DAILY 02/28/19 04/18/19 04/05/19 History risperiDONE [Risperdal] 2 mg PO DAILY 02/28/19 04/18/19 04/05/19 History Pantoprazole [Protonix TAB] 40 mg PO BID 60 Days tablet 03/06/19 04/18/1903/12 Rx AtorvaSTATin 80 mg PO HS 04/18/19 04/18/19 Unknown History Levothyroxine 150 mcg PO DAILY 04/18/19 04/18/19 Unknown History Midodrine 10 mg PO 3XW 04/18/19 04/18/19 Unknown History Active Meds: Active Medications Acetaminophen (Tylenol) 650 mg PO Q4H PRN PRN Reason: Pain MILD(1-3)/Fever >100.5/SEYMOUR Albuterol (Proventil) 2.5 mg IH Q6HRT PRN PRN Reason: Shortness Of Breath Dextrose (D50w (25gm) Syringe) 50 ml IV PRN PRN PRN Reason: Hypoglycemia Epoetin Jean Carlos (Procrit) 20,000 unit IV MARCELA PRN PRN Reason: hemodialysis Levofloxacin/Dextrose (Levaquin 500mg/100ml) 500 mg in 100 mls @ 100 mls/hr IV Q48HR [facility] Last Admin: 04/18/19 12:06 Dose: 100 mls/hr Documented by: Pantoprazole Sodium 80 mg/ (Sodium Chloride) 100 mls @ 10 mls/hr IV DIRECT [facility] Last Admin: 04/18/19 12:31 Dose: 8 mg/hr, 10 mls/hr Documented by: Sodium Chloride (Nacl 0.9% 500 Ml) 500 mls @ 0 mls/hr IV ONCE NR Stop: 04/18/19 23:59 Insulin Human Regular (Humulin R) 0 units SUB-Q ACHS ROSELINE; Protocol Last Admin: 04/18/19 12:13 Dose: Not Given Documented by: Ketoconazole (Nizoral) 1 applic TP DAILY [facility] Last Admin: 04/18/19 12:12 Dose: 1 applic Documented by: Ondansetron HCl (Zofran) 4 mg IV Q8H PRN PRN Reason: Nausea And Vomiting Pantoprazole Sodium (Protonix) 40 mg IV BID [facility] Last Admin: 04/18/19 11:39 Dose: 40 mg Documented by: Sodium Chloride (Sodium Chloride Flush Syringe 10 Ml) 10 ml IV BID [facility] Last Admin: 04/18/19 10:00 Dose: 10 ml Documented by: Sodium Chloride (Sodium Chloride Flush Syringe 10 Ml) 10 ml IV PRN PRN PRN Reason: LINE FLUSH Physical Examination - Physical Exam Narrative exam: General appearance: Alert in NAD Eyes: anicteric sclerae, moist conjunctivae; no lid-lag; PERRLA HENT: Atraumatic; oropharynx clear with moist mucous membranes and no mucosal ulcerations/no oral thrush; normal hard and soft palate. Lungs: CTA, with normal respiratory effort and no intercostal retractions CV: RRR no murmur Abdomen: Soft, non-tender; no masses or hepatosplenomegaly Extremities: +[place] thigh edema, no cyanosis Skin: No rash. Psych: Appropriate affect, alert and oriented to person, place and time. Neuro: alert and oriented x 3. Moving all extermities Right SC HD cath - Constitutional Vitals: Vital Signs Temp Pulse Resp BP Pulse Ox 95.0 F L 76 13 105/73 100 04/18/19 16:00 04/18/19 15:50 04/18/19 15:50 04/18/19 15:50 04/18/19 15:50 Temperature -Last 24 Hours Temperature 95.0 F Temperature 90.1 F Temperature 90.0 F Temperature 90.2 F Temperature 90.2 F Temperature 92.0 F Temperature 90.0 F Temperature 90.0 F Temperature 90.4 F Temperature 90 F Temperature 90.1 F Temperature 98 F Temperature 98.1 F Temperature 98.1 F Temperature 98.2 F Temperature 98.2 F Results - Labs CBC & Chem 7: 04/18/19 20:27 04/17/19 22:00 Labs: Abnormal lab results 04/17/19 04/17/19 04/17/19 Range/Units 21:53 21:53 22:00 WBC 2.1 L (4.5-11.0) K/mm3 RBC 1.62 L (3.65-5.03) M/mm3 Hgb 4.5 L* (10.1-14.3) gm/dl Hct 13.7 L* (30.3-42.9) % RDW 16.2 H (13.2-15.2) % Plt Count 33 L (140-440) K/mm3 Seg Neuts % (Manual) 82 H (40.0-70.0) % Seg Neutrophils # Man 1.7 L (1.8-7.7) K/mm3 Lymphocytes # (Manual) 0.3 L (1.2-5.4) K/mm3 PT 16.8 H (12.2-14.9) Sec. INR 1.40 H (0.87-1.13) APTT 48.0 H (24.2-36.6) Sec. POC ABG pH (7.35-7.45) POC ABG pCO2 (35-45) Sodium (137-145) mmol/L BUN (7-17) mg/dL Creatinine (0.7-1.2) mg/dL Glucose (65-100) mg/dL POC Glucose (70-105) Calcium (8.4-10.2) mg/dL AST (5-40) units/L ALT (7-56) units/L NT-Pro-B Natriuret Pep 66343 H (0-900) pg/mL Total Protein (6.3-8.2) g/dL Albumin (3.9-5) g/dL Urine WBC (Auto) (0.0-6.0) /HPF Crossmatch 04/17/19 04/17/19 04/17/19 Range/Units 22:00 22:40 23:20 WBC (4.5-11.0) K/mm3 RBC (3.65-5.03) M/mm3 Hgb (10.1-14.3) gm/dl Hct (30.3-42.9) % RDW (13.2-15.2) % Plt Count (140-440) K/mm3 Seg Neuts % (Manual) (40.0-70.0) % Seg Neutrophils # Man (1.8-7.7) K/mm3 Lymphocytes # (Manual) (1.2-5.4) K/mm3 PT (12.2-14.9) Sec. INR (0.87-1.13) APTT (24.2-36.6) Sec. POC ABG pH 7.336 L (7.35-7.45) POC ABG pCO2 54.9 H (35-45) Sodium 134 L (137-145) mmol/L BUN 83 H (7-17) mg/dL Creatinine 3.2 H (0.7-1.2) mg/dL Glucose 102 H (65-100) mg/dL POC Glucose (70-105) Calcium 7.0 L (8.4-10.2) mg/dL AST 165 H (5-40) units/L ALT 111 H (7-56) units/L NT-Pro-B Natriuret Pep (0-900) pg/mL Total Protein 4.5 L (6.3-8.2) g/dL Albumin 2.0 L (3.9-5) g/dL Urine WBC (Auto) > 182.0 H (0.0-6.0) /HPF Crossmatch 04/17/19 04/18/19 Range/Units 23:41 12:13 WBC (4.5-11.0) K/mm3 RBC (3.65-5.03) M/mm3 Hgb (10.1-14.3) gm/dl Hct (30.3-42.9) % RDW (13.2-15.2) % Plt Count (140-440) K/mm3 Seg Neuts % (Manual) (40.0-70.0) % Seg Neutrophils # Man (1.8-7.7) K/mm3 Lymphocytes # (Manual) (1.2-5.4) K/mm3 PT (12.2-14.9) Sec. INR (0.87-1.13) APTT (24.2-36.6) Sec. POC ABG pH (7.35-7.45) POC ABG pCO2 (35-45) Sodium (137-145) mmol/L BUN (7-17) mg/dL Creatinine (0.7-1.2) mg/dL Glucose (65-100) mg/dL POC Glucose 127 H (70-105) Calcium (8.4-10.2) mg/dL AST (5-40) units/L ALT (7-56) units/L NT-Pro-B Natriuret Pep (0-900) pg/mL Total Protein (6.3-8.2) g/dL Albumin (3.9-5) g/dL Urine WBC (Auto) (0.0-6.0) /HPF Crossmatch See Detail Assessment and Plan Cultures: Blood culture 04/17/2019 no growth today. Assessment: 58 y/o female with history of recurrent GI, ESRD on HD, CHF, CVA, chronic anemia, diabetes, schizophrenia, ascites (secondary to poor nutrition/ESRD, no evidence of liver disease), and recent multiple admissions for recurrent upper GI bleed admitted on 04/17/2019 due to AMS and SOB: 1) Sepsis +/- severe hypovolemia due to bleed: present on admission with hypothermia, hypotension, source likely UTI. Blood culture 04/17/2019 no growth today. 2) CAUTI ? murphy present. 3) Severe anemia from GI Bleed 4) Recurrrent GI bleed: she is s/p empiric embolization of L gastric artery 02/10/2019. EGD 02/13/19 revealed large ulcer (4cm) on lesser curve; no visible vessel, mild gastritis, and small hiatal hernia (bx negative for H.pylori/malignancy) s/p repeat EGD 03/01/19 that showed ulcerative esophagitis with adherent clot with underlying oozing of blood (clip x 1 with hemostasis), and large ulcer along lesser curvature as seen on prior endoscopy with necrosis appearance but no high risk bleeding lesions. She has a negative colonoscopy at [facility] per pt report 01/2019. 5) ESRD on HD 6) Chronic ascitis: No evidence of SBP on ascitic fluid. Recent CT abd shows ma ssive ascitis, bilateral pleural effusions. 7) Pancytopenia: anemia due to GI bleed but unclear etiology of neutropenia and thrombocytopenia. Recommendations: monitor blood and urine cultures continue levaquin renally adjusted consider Hem consult / bone marrow biopsy GI med consult Will follow. Lore Cerda MD Infectious Diseases [facility] M [phone] O [phone]
[2019-04-19 05:21] LABS: Basophils % (Auto) 0.3 % (0.0-1.8); Hematocrit 28.8 % (30.3-42.9); Hemoglobin 9.9 gm/dl (10.1-14.3); Lymphocytes # (Auto) 0.3 K/mm3 (1.2-5.4); Lymphocytes % (Auto) 11.6 % (13.4-35.0); Mean Corpuscular HGB Conc 34 % (30-34); Mean Corpuscular Volume 87 fl (79-97); Monocytes # (Auto) 0.1 K/mm3 (0.0-0.8); Monocytes % (Auto) 2.6 % (0.0-7.3); Red Blood Count 3.29 M/mm3 (3.65-5.03); Red Cell Distribution Width 15.2 % (13.2-15.2)
[2019-04-19 05:29] LABS: Platelet Count 49 K/mm3 (140-440)
[2019-04-19 05:38] LABS: Calcium 7.1 mg/dL (8.4-10.2)
[2019-04-19] MEDS: D50W (25GM) Syringe IV PRN ×3 (05:46→10:16)
[2019-04-19] MEDS: HumuLIN R SUB-Q SCH ×3 (08:08→17:42)
[2019-04-19] MEDS: SODIUM CHLORIDE FLUSH SYRINGE 10 ML IV SCH ×3 (08:09→22:02)
[2019-04-19] MEDS: PROTONIX 80 MG in NACL 0.9% 100 ML IV SCH ×2 (08:21→20:00)
--- NOTE | 2019-04-19 09:51 | Progress Note ---
Assessment and Plan 58 y/o female admitted with GI bleed, and hypothermia, concern for SBP 1. Transfuse another pack of platelets to get count >50k so rads can do procedure 2. GI to scope today, continue PPI drip until GI evaluates. 3. HD per renal 4. ID recs in regards to abx therapy 5. Pending results of scope, may be stable enough for transfer later today. 6. Patient has been hypoglycemic, likely from being NPO plus underlying liver disease. Will do q1 hour fingersticks. If D50 is needed consistently, will place on D5 drip at low maintenance dose Guarded prognosis CCT 31 minutes. Subjective Date of service: 04/19/19 Interval history: Awake and confused but calm and pleasant. Still hypothermic on perico hugger. Ascitic fluid does not appear infected. ID on board as well. Did not get scoped yesterday but plan per nursing is for today at 1330. Platelets at 49k. Still needs large volume paracentesis. No family present this am. H/H better after 3 units of PRBC's but inadequate rise (higher than expected) Objective - Constitutional Vitals: Vital Signs - 12hr 04/18/19 04/18/19 04/18/19 21:50 22:00 22:10 Temperature Pulse Rate 96 H 97 H 97 H Pulse Rate [ Apical] Pulse Rate [ From Monitor] Respiratory 12 15 13 Rate Blood Pressure 110/78 107/72 107/72 O2 Sat by Pulse 99 95 100 Oximetry 04/18/19 04/18/19 04/18/19 22:20 22:30 22:40 Temperature Pulse Rate 98 H 97 H 96 H Pulse Rate [ Apical] Pulse Rate [ From Monitor] Respiratory 18 14 13 Rate Blood Pressure 107/72 121/81 121/81 O2 Sat by Pulse 100 98 99 Oximetry 04/18/19 04/18/19 04/18/19 22:46 22:50 22:56 Temperature Pulse Rate 99 H 98 H 97 H Pulse Rate [ Apical] Pulse Rate [ From Monitor] Respiratory 12 13 20 Rate Blood Pressure 107/72 119/75 119/75 O2 Sat by Pulse 99 99 98 Oximetry 04/18/19 04/18/19 04/18/19 23:00 23:03 23:10 Temperature Pulse Rate 96 H 96 H 98 H Pulse Rate [ Apical] Pulse Rate [ From Monitor] Respiratory 14 14 15 Rate Blood Pressure 99/67 99/67 99/67 O2 Sat by Pulse 96 97 99 Oximetry 04/18/19 04/18/19 04/18/19 23:20 23:30 23:40 Temperature Pulse Rate 97 H 100 H 99 H Pulse Rate [ Apical] Pulse Rate [ From Monitor] Respiratory 17 15 17 Rate Blood Pressure 99/62 101/68 101/68 O2 Sat by Pulse 99 95 100 Oximetry 04/18/19 04/19/19 04/19/19 23:50 00:00 00:10 Temperature 97.5 F L Pulse Rate 100 H 100 H 102 H Pulse Rate [ 101 H Apical] Pulse Rate [ 91 H From Monitor] Respiratory 17 14 18 Rate Blood Pressure 103/67 103/62 103/62 O2 Sat by Pulse 98 95 99 Oximetry 04/19/19 04/19/19 04/19/19 00:20 00:30 00:40 Temperature Pulse Rate 99 H 101 H 100 H Pulse Rate [ Apical] Pulse Rate [ From Monitor] Respiratory 14 16 15 Rate Blood Pressure 100/61 100/61 100/61 O2 Sat by Pulse 100 100 100 Oximetry 04/19/19 04/19/19 04/19/19 00:50 01:00 01:10 Temperature Pulse Rate 102 H 102 H 104 H Pulse Rate [ Apical] Pulse Rate [ From Monitor] Respiratory 16 14 16 Rate Blood Pressure 94/64 98/65 98/65 O2 Sat by Pulse 100 99 100 Oximetry 04/19/19 04/19/19 04/19/19 01:20 01:30 01:40 Temperature Pulse Rate 102 H 102 H 104 H Pulse Rate [ Apical] Pulse Rate [ From Monitor] Respiratory 15 14 15 Rate Blood Pressure 102/68 98/63 98/63 O2 Sat by Pulse 99 100 Oximetry 04/19/19 04/19/19 04/19/19 01:50 02:00 02:10 Temperature Pulse Rate 103 H 104 H 104 H Pulse Rate [ Apical] Pulse Rate [ From Monitor] Respiratory 16 14 11 L Rate Blood Pressure 99/65 96/65 96/65 O2 Sat by Pulse 98 98 96 Oximetry 04/19/19 04/19/19 04/19/19 02:20 02:30 02:40 Temperature Pulse Rate 104 H 105 H 105 H Pulse Rate [ Apical] Pulse Rate [ From Monitor] Respiratory 15 15 15 Rate Blood Pressure 101/62 102/60 102/60 O2 Sat by Pulse 94 94 Oximetry 04/19/19 04/19/19 04/19/19 02:50 03:00 03:10 Temperature Pulse Rate 104 H 106 H 105 H Pulse Rate [ Apical] Pulse Rate [ From Monitor] Respiratory 16 15 15 Rate Blood Pressure 97/65 100/62 100/62 O2 Sat by Pulse 97 95 93 Oximetry 04/19/19 04/19/19 04/19/19 03:20 03:30 03:40 Temperature Pulse Rate 105 H 106 H 106 H Pulse Rate [ Apical] Pulse Rate [ From Monitor] Respiratory 15 17 17 Rate Blood Pressure 92/62 95/61 95/61 O2 Sat by Pulse 94 93 Oximetry 04/19/19 04/19/19 04/19/19 03:50 04:00 04:10 Temperature 97.9 F Pulse Rate 106 H 107 H 107 H Pulse Rate [ 112 H Apical] Pulse Rate [ 112 H From Monitor] Respiratory 14 15 15 Rate Blood Pressure 101/57 97/61 97/61 O2 Sat by Pulse 92 93 93 Oximetry 04/19/19 04/19/19 04/19/19 04:20 04:30 04:40 Temperature Pulse Rate 107 H 107 H 106 H Pulse Rate [ Apical] Pulse Rate [ From Monitor] Respiratory 16 15 15 Rate Blood Pressure 101/69 101/69 88/60 O2 Sat by Pulse 95 92 94 Oximetry 04/19/19 04/19/19 04/19/19 04:50 05:00 05:10 Temperature Pulse Rate 109 H 104 H 107 H Pulse Rate [ Apical] Pulse Rate [ From Monitor] Respiratory 17 14 14 Rate Blood Pressure 62/30 88/60 88/60 O2 Sat by Pulse 93 92 93 Oximetry 04/19/19 04/19/19 04/19/19 05:20 05:30 05:40 Temperature Pulse Rate 106 H 107 H 107 H Pulse Rate [ Apical] Pulse Rate [ From Monitor] Respiratory 14 18 15 Rate Blood Pressure 88/60 92/61 92/61 O2 Sat by Pulse 93 95 Oximetry 04/19/19 04/19/19 04/19/19 05:50 06:00 06:10 Temperature Pulse Rate 105 H 106 H 107 H Pulse Rate [ Apical] Pulse Rate [ From Monitor] Respiratory 13 16 14 Rate Blood Pressure 51/23 107/72 107/72 O2 Sat by Pulse 97 96 96 Oximetry 04/19/19 04/19/19 04/19/19 06:20 06:30 06:40 Temperature Pulse Rate 107 H 115 H 112 H Pulse Rate [ Apical] Pulse Rate [ From Monitor] Respiratory 18 19 15 Rate Blood Pressure 109/72 118/82 118/82 O2 Sat by Pulse 96 97 Oximetry 04/19/19 04/19/19 04/19/19 06:50 07:00 07:10 Temperature Pulse Rate 113 H 114 H 112 H Pulse Rate [ Apical] Pulse Rate [ From Monitor] Respiratory 14 14 9 L Rate Blood Pressure 97/69 106/72 106/72 O2 Sat by Pulse 99 97 99 Oximetry 04/19/19 04/19/19 04/19/19 07:20 07:30 07:40 Temperature Pulse Rate 111 H 114 H 111 H Pulse Rate [ Apical] Pulse Rate [ From Monitor] Respiratory 17 12 14 Rate Blood Pressure 106/71 110/77 110/77 O2 Sat by Pulse 98 98 99 Oximetry 04/19/19 04/19/19 07:50 07:53 Temperature Pulse Rate 111 H Pulse Rate [ Apical] Pulse Rate [ 110 H From Monitor] Respiratory 14 12 Rate Blood Pressure 101/63 O2 Sat by Pulse 99 99 Oximetry - Labs CBC & Chem 7: 04/19/19 04:20 04/19/19 04:20 Labs: Abnormal lab results 04/17/19 04/18/19 04/18/19 Range/Units 23:41 12:13 20:27 WBC (4.5-11.0) K/mm3 RBC (3.65-5.03) M/mm3 Hgb 10.0 L D (10.1-14.3) gm/dl Hct 29.0 L D (30.3-42.9) % Plt Count (140-440) K/mm3 Lymph % (Auto) (13.4-35.0) % Lymph # (1.2-5.4) K/mm3 Seg Neutrophils % (40.0-70.0) % Sodium (137-145) mmol/L Chloride (98-107) mmol/L BUN (7-17) mg/dL Creatinine (0.7-1.2) mg/dL Glucose (65-100) mg/dL POC Glucose 127 H (70-105) Calcium (8.4-10.2) mg/dL Crossmatch See Detail 04/19/19 04/19/19 04/19/19 Range/Units 00:13 04:20 04:20 WBC 2.9 L (4.5-11.0) K/mm3 RBC 3.29 L (3.65-5.03) M/mm3 Hgb 9.9 L (10.1-14.3) gm/dl Hct 28.8 L (30.3-42.9) % Plt Count 49 L (140-440) K/mm3 Lymph % (Auto) 11.6 L (13.4-35.0) % Lymph # 0.3 L (1.2-5.4) K/mm3 Seg Neutrophils % 85.5 H (40.0-70.0) % Sodium 133 L (137-145) mmol/L Chloride 97.5 L (98-107) mmol/L BUN 90 H (7-17) mg/dL Creatinine 3.4 H (0.7-1.2) mg/dL Glucose 47 L (65-100) mg/dL POC Glucose 69 L (70-105) Calcium 7.1 L (8.4-10.2) mg/dL Crossmatch 04/19/19 04/19/19 Range/Units 05:46 06:48 WBC (4.5-11.0) K/mm3 RBC (3.65-5.03) M/mm3 Hgb (10.1-14.3) gm/dl Hct (30.3-42.9) % Plt Count (140-440) K/mm3 Lymph % (Auto) (13.4-35.0) % Lymph # (1.2-5.4) K/mm3 Seg Neutrophils % (40.0-70.0) % Sodium (137-145) mmol/L Chloride (98-107) mmol/L BUN (7-17) mg/dL Creatinine (0.7-1.2) mg/dL Glucose (65-100) mg/dL POC Glucose 48 L 127 H (70-105) Calcium (8.4-10.2) mg/dL Crossmatch Medications & Allergies - Medications Allergies/Adverse Reactions: Allergies guaifenesin [From Robitussin] Allergy (Verified 02/09/19 07:00) Hives Penicillins Allergy (Verified 02/09/19 07:00) Hives Home Medications: Home Medications Medication Instructions Recorded Confirmed Last Taken Type Acetaminophen [Acetaminophen TAB] 650 mg PO Q12HR PRN 02/09/19 04/18/19 04/05/19 History Polyethylene Glycol 3350 [Miralax 17 gm PO DAILY 02/09/19 04/18/19 04/05/19 History 3350] Albuterol Sulfate [Proair 2 puff IH Q6HR PRN 02/28/19 04/18/19 04/05/19 History Respiclick] Antifungal 1% CREAM 1 pack TP DAILY 02/28/19 04/18/19 04/05/19 History Calcium Acetate [Phoslo] 667 mg PO TID 02/28/19 04/18/19 04/05/19 History Ferrous Sulfate [Feosol 325 MG tab] 325 mg PO BID 02/28/19 04/18/19 04/05/19 History Folic Acid [Folvite] 1 mg PO DAILY 02/28/19 04/18/19 04/05/19 History Glucagon (Human Recomb) [Glucagen] 1 mg IM Q15MIN PRN 02/28/19 04/18/19 04/05/19 History Insulin Lispro [Humalog 100 100 unit SQ PRN PRN 02/28/19 04/18/19 04/05/19 H istory UNITS/ML Kwikpen] Levothyroxine [Synthroid] 150 mcg PO QAM 02/28/19 04/18/19 04/05/19 History PARoxetine HCl [PARoxetine] 20 mg PO HS 02/28/19 04/18/19 04/05/19 History Sennosides Tab [Senokot] 1 tab PO HS PRN 02/28/19 04/18/19 04/05/19 History Thiamine [Vitamin B-1] 100 mg PO DAILY 02/28/19 04/18/19 04/05/19 History risperiDONE [Risperdal] 2 mg PO DAILY 02/28/19 04/18/19 04/05/19 History Pantoprazole [Protonix TAB] 40 mg PO BID 60 Days tablet 03/06/19 04/18/19 04/05/19 Rx AtorvaSTATin 80 mg PO HS 04/18/19 04/18/19 Unknown History Levothyroxine 150 mcg PO DAILY 04/18/19 04/18/19 Unknown History Midodrine 10 mg PO 3XW 04/18/19 04/18/19 Unknown History Active Medications: Generic Name Dose Route Start Last Admin Trade Name Andry PRN Reason Stop Dose Admin Acetaminophen 650 mg 04/18/19 02:09 Tylenol PO Q4H PRN Pain MILD(1-3)/Fever >100.5/SEYMOUR Albuterol 2.5 mg 04/18/19 00:38 Proventil IH Q6HRT PRN Shortness Of Breath Dextrose 50 ml 04/18/19 00:18 04/19/19 06:02 D50w (25gm) Syringe IV 50 ml PRN PRN Administration Hypoglycemia Epoetin Jean Carlos 20,000 unit 04/18/19 10:13 Procrit IV MARCELA PRN hemodialysis Levofloxacin/Dextrose 500 mg in 100 mls @ 100 mls/hr 04/18/19 10:00 04/18/19 12:06 Levaquin 500mg/100ml IV 100 mls/hr Q48HR [facility] Administration Pantoprazole Sodium 80 mg/ 100 mls @ 10 mls/hr 04/18/19 12:00 04/19/19 08:21 Sodium Chloride IV 8 mg/hr DIRECT [facility] 10 mls/hr Administration 8 MG/HR Sodium Chloride 500 mls @ 0 mls/hr 04/19/19 09:25 Nacl 0.9% 500 Ml IV 04/19/19 09:26 ONCE ONE As Directed Insulin Human Regular 0 units 04/18/19 07:30 04/19/19 08:08 Humulin R SUB-Q Not Given ACHS [facility] Protocol Ketoconazole 1 applic 04/18/19 10:00 04/18/19 12:12 Nizoral TP 1 applic DAILY [facility] Administration Ondansetron HCl 4 mg 04/18/19 02:09 Zofran IV Q8H PRN Nausea And Vomiting Sodium Chloride 10 ml 04/18/19 10:00 04/19/19 08:09 Sodium Chloride Flush Syringe 10 Ml IV Not Given BID [facility] Sodium Chloride 10 ml 04/18/19 02:09 Sodium Chloride Flush Syringe 10 Ml IV PRN PRN LINE FLUSH
[2019-04-19] MEDS ORDERED: NACL 0.9% 500 ML 500 ML IV ONE (10:00)
[2019-04-19] MEDS: NIZORAL TP SCH (10:16)
--- NOTE | 2019-04-19 10:22 | Progress Note ---
Assessment and Plan Assessment: -ESRD on HD- MWF at [place] -CAD -hematemesis -anemia acute blood loss POA Plan: -continue HD once hb is adequate, needed, no indication for [employer]CH[employer]IAN today -appreciate cardiology and GI input -will provide ESAs as indicated serial H/H, needs prbcs prn -avoid nephrotoxins, renally dose all medications -strict Is/Os Subjective Date of service: 04/19/19 Principal diagnosis: hypokalemia Interval history: resting in bed Objective - Exam Narrative Exam: General appearance: Present: severe distress, other (Pale) - EENT Eyes: Present: PERRL ENT: hearing intact, clear oral mucosa - Neck Neck: Present: supple, normal ROM - Respiratory Respiratory effort: normal Respiratory: bilateral: rales - Cardiovascular Heart Sounds: Present: S1 & S2. Absent: rub, click - Extremities Extremities: pulses symmetrical Extremity abnormal: edema Peripheral Pulses: within normal limits - Abdominal General gastrointestinal: Present: soft, non-tender, normal bowel sounds, other (ascites) Female genitourinary: Present: normal - Integumentary Integumentary: Present: clear, warm, dry - Musculoskeletal Musculoskeletal: gait normal, strength equal bilaterally - Psychiatric Psychiatric: no intact judgment & insight, cooperative - Neurologic Neurologic: CNII-XII intact, moves all extremities - Vital Signs Vital signs: Vital Signs - 12hr 04/18/19 04/18/19 04/18/19 22:30 22:40 22:46 Temperature Pulse Rate 97 H 96 H 99 H Pulse Rate [ Apical] Pulse Rate [ From Monitor] Respiratory 14 13 12 Rate Blood Pressure 121/81 121/81 107/72 O2 Sat by Pulse 98 99 99 Oximetry 04/18/19 04/18/19 04/18/19 22:50 22:56 23:00 Temperature Pulse Rate 98 H 97 H 96 H Pulse Rate [ Apical] Pulse Rate [ From Monitor] Respiratory 13 20 14 Rate Blood Pressure 119/75 119/75 99/67 O2 Sat by Pulse 99 98 96 Oximetry 04/18/19 04/18/19 04/18/19 23:03 23:10 23:20 Temperature Pulse Rate 96 H 98 H 97 H Pulse Rate [ Apical] Pulse Rate [ From Monitor] Respiratory 14 15 17 Rate Blood Pressure 99/67 99/67 99/62 O2 Sat by Pulse 97 99 99 Oximetry 04/18/19 04/18/1919 23:30 23:40 23:50 Temperature Pulse Rate 100 H 99 H 100 H Pulse Rate [ Apical] Pulse Rate [ From Monitor] Respiratory 15 17 17 Rate Blood Pressure 101/68 101/68 103/67 O2 Sat by Pulse 95 100 98 Oximetry 04/19/19 04/19/19 04/19/19 00:00 00:10 00:20 Temperature 97.5 F L Pulse Rate 100 H 102 H 99 H Pulse Rate [ 101 H Apical] Pulse Rate [ 91 H From Monitor] Respiratory 14 18 14 Rate Blood Pressure 103/62 103/62 100/61 O2 Sat by Pulse 95 99 100 Oximetry 04/19/19 04/19/19 04/19/19 00:30 00:40 00:50 Temperature Pulse Rate 101 H 100 H 102 H Pulse Rate [ Apical] Pulse Rate [ From Monitor] Respiratory 16 15 16 Rate Blood Pressure 100/61 100/61 94/64 O2 Sat by Pulse 100 100 100 Oximetry 04/19/19 04/19/19 04/19/19 01:00 01:10 01:20 Temperature Pulse Rate 102 H 104 H 102 H Pulse Rate [ Apical] Pulse Rate [ From Monitor] Respiratory 14 16 15 Rate Blood Pressure 98/65 98/65 102/68 O2 Sat by Pulse 99 100 99 Oximetry 04/19/19 04/19/19 04/19/19 01:30 01:40 01:50 Temperature Pulse Rate 102 H 104 H 103 H Pulse Rate [ Apical] Pulse Rate [ From Monitor] Respiratory 14 15 16 Rate Blood Pressure 98/63 98/63 99/65 O2 Sat by Pulse 100 98 Oximetry 04/19/19 04/19/19 04/19/19 02:00 02:10 02:20 Temperature Pulse Rate 104 H 104 H 104 H Pulse Rate [ Apical] Pulse Rate [ From Monitor] Respiratory 14 11 L 15 Rate Blood Pressure 96/65 96/65 101/62 O2 Sat by Pulse 98 96 94 Oximetry 04/19/19 04/19/19 04/19/19 02:30 02:40 02:50 Temperature Pulse Rate 105 H 105 H 104 H Pulse Rate [ Apical] Pulse Rate [ From Monitor] Respiratory 15 15 16 Rate Blood Pressure 102/60 102/60 97/65 O2 Sat by Pulse 94 97 Oximetry 04/19/19 04/19/19 04/19/19 03:00 03:10 03:20 Temperature Pulse Rate 106 H 105 H 105 H Pulse Rate [ Apical] Pulse Rate [ From Monitor] Respiratory 15 15 15 Rate Blood Pressure 100/62 100/62 92/62 O2 Sat by Pulse 95 93 94 Oximetry 04/19/19 04/19/19 04/19/19 03:30 03:40 03:50 Temperature Pulse Rate 106 H 106 H 106 H Pulse Rate [ Apical] Pulse Rate [ From Monitor] Respiratory 17 17 14 Rate Blood Pressure 95/61 95/61 101/57 O2 Sat by Pulse 93 92 Oximetry 04/19/19 04/19/19 04/19/19 04:00 04:10 04:20 Temperature 97.9 F Pulse Rate 107 H 107 H 107 H Pulse Rate [ 112 H Apical] Pulse Rate [ 112 H From Monitor] Respiratory 15 15 16 Rate Blood Pressure 97/61 97/61 101/69 O2 Sat by Pulse 93 93 95 Oximetry 04/19/19 04/19/19 04/19/19 04:30 04:40 04:50 Temperature Pulse Rate 107 H 106 H 109 H Pulse Rate [ Apical] Pulse Rate [ From Monitor] Respiratory 15 15 17 Rate Blood Pressure 101/69 88/60 62/30 O2 Sat by Pulse 92 94 93 Oximetry 04/19/19 04/19/19 04/19/19 05:00 05:10 05:20 Temperature Pulse Rate 104 H 107 H 106 H Pulse Rate [ Apical] Pulse Rate [ From Monitor] Respiratory 14 14 14 Rate Blood Pressure 88/60 88/60 88/60 O2 Sat by Pulse 92 93 93 Oximetry 04/19/19 04/19/19 04/19/19 05:30 05:40 05:50 Temperature Pulse Rate 107 H 107 H 105 H Pulse Rate [ Apical] Pulse Rate [ From Monitor] Respiratory 18 15 13 Rate Blood Pressure 92/61 92/61 51/23 O2 Sat by Pulse 95 97 Oximetry 04/19/19 04/19/19 04/19/19 06:00 06:10 06:20 Temperature Pulse Rate 106 H 107 H 107 H Pulse Rate [ Apical] Pulse Rate [ From Monitor] Respiratory 16 14 18 Rate Blood Pressure 107/72 107/72 109/72 O2 Sat by Pulse 96 96 96 Oximetry 04/19/19 04/19/19 04/19/19 06:30 06:40 06:50 Temperature Pulse Rate 115 H 112 H 113 H Pulse Rate [ Apical] Pulse Rate [ From Monitor] Respiratory 19 15 14 Rate Blood Pressure 118/82 118/82 97/69 O2 Sat by Pulse 97 99 Oximetry 04/19/19 04/19/19 04/19/19 07:00 07:10 07:20 Temperature Pulse Rate 114 H 112 H 111 H Pulse Rate [ Apical] Pulse Rate [ From Monitor] Respiratory 14 9 L 17 Rate Blood Pressure 106/72 106/72 106/71 O2 Sat by Pulse 97 99 98 Oximetry 04/19/19 04/19/19 04/19/19 07:30 07:40 07:50 Temperature Pulse Rate 114 H 111 H 111 H Pulse Rate [ Apical] Pulse Rate [ From Monitor] Respiratory 12 14 14 Rate Blood Pressure 110/77 110/77 101/63 O2 Sat by Pulse 98 99 99 Oximetry 04/19/19 07:53 Temperature Pulse Rate Pulse Rate [ Apical] Pulse Rate [ 110 H From Monitor] Respiratory 12 Rate Blood Pressure O2 Sat by Pulse 99 Oximetry - Lab 04/19/19 04:20 04/19/19 04:20 Most recent lab results Calcium 7.1 mg/dL (8.4-10.2) L 04/19/19 04:20 Medications & Allergies - Medications Allergies/Adverse Reactions: Allergies guaifenesin [From Robitussin] Allergy (Verified 02/09/19 07:00) Hives Penicillins Allergy (Verified 02/09/19 07:00) Hives Home Medications: Home Medications Medication Instructions Recorded Confirmed Last Taken Type Acetaminophen [Acetaminophen TAB] 650 mg PO Q12HR PRN 02/09/19 04/18/19 04/05/19 History Polyethylene Glycol 3350 [Miralax 17 gm PO DAILY 02/09/19 04/18/19 04/05/19 History 3350] Albuterol Sulfate [Proair 2 puff IH Q6HR PRN 02/28/19 04/18/19 04/05/19 History Respiclick] Antifungal 1% CREAM 1 pack TP DAILY 02/28/19 04/18/19 04/05/19 History Calcium Acetate [Phoslo] 667 mg PO TID 02/28/19 04/18/19 04/05/19 History Ferrous Sulfate [Feosol 325 MG tab] 325 mg PO BID 02/28/19 04/18/19 04/05/19 History Folic Acid [Folvite] 1 mg PO DAILY 02/28/19 04/18/19 04/05/19 History Glucagon (Human Recomb) [Glucagen] 1 mg IM Q15MIN PRN 02/28/19 04/18/19 04/05/19 History Insulin Lispro [Humalog 100 100 unit SQ PRN PRN 02/28/19 04/18/19 04/05/19 H istory UNITS/ML Kwikpen] Levothyroxine [Synthroid] 150 mcg PO QAM 02/28/19 04/18/19 04/05/19 History PARoxetine HCl [PARoxetine] 20 mg PO HS 02/28/19 04/18/19 04/05/19 History Sennosides Tab [Senokot] 1 tab PO HS PRN 02/28/19 04/18/19 04/05/19 History Thiamine [Vitamin B-1] 100 mg PO DAILY 02/28/19 04/18/19 04/05/19 History risperiDONE [Risperdal] 2 mg PO DAILY 02/28/19 04/18/19 04/05/19 History Pantoprazole [Protonix TAB] 40 mg PO BID 60 Days tablet 03/06/19 04/18/19 04/05/19 Rx AtorvaSTATin 80 mg PO HS 04/18/19 04/18/19 Unknown History Levothyroxine 150 mcg PO DAILY 04/18/19 04/18/19 Unknown History Midodrine 10 mg PO 3XW 04/18/19 04/18/19 Unknown History Active Medications: Generic Name Dose Route Start Last Admin Trade Name Andry PRN Reason Stop Dose Admin Acetaminophen 650 mg 04/18/19 02:09 Tylenol PO Q4H PRN Pain MILD(1-3)/Fever >100.5/SEYMOUR Albuterol 2.5 mg 04/18/19 00:38 Proventil IH Q6HRT PRN Shortness Of Breath Dextrose 50 ml 04/18/19 00:18 04/19/19 10:16 D50w (25gm) Syringe IV 50 ml PRN PRN Administration Hypoglycemia Epoetin Jean Carlos 20,000 unit 04/18/19 10:13 Procrit IV MARCELA PRN hemodialysis Levofloxacin/Dextrose 500 mg in 100 mls @ 100 mls/hr 04/18/19 10:00 04/18/19 12:06 Levaquin 500mg/100ml IV 100 mls/hr Q48HR ROSELINE Administration Pantoprazole Sodium 80 mg/ 100 mls @ 10 mls/hr 04/18/19 12:00 04/19/19 08:21 Sodium Chloride IV 8 mg/hr DIRECT ROSELINE 10 mls/hr Administration 8 MG/HR Insulin Human Regular 0 units 04/18/19 07:30 04/19/19 08:08 Humulin R SUB-Q Not Given ACHS ROSELINE Protocol Ketoconazole 1 applic 04/18/19 10:00 04/19/19 10:16 Nizoral TP 1 applic DAILY ROSELINE Administration Ondansetron HCl 4 mg 04/18/19 02:09 Zofran IV Q8H PRN Nausea And Vomiting Sodium Chloride 10 ml 04/18/19 10:00 04/19/19 10:17 Sodium Chloride Flush Syringe 10 Ml IV 10 ml BID ROSELINE Administration Sodium Chloride 10 ml 04/18/19 02:09 Sodium Chloride Flush Syringe 10 Ml IV PRN PRN LINE FLUSH
--- NOTE | 2019-04-19 12:44 | Progress Note ---
Assessment and Plan Cultures: Blood culture 04/17/2019 no growth today. Assessment: 58 y/o female with history of recurrent GI, ESRD on HD, CHF, CVA, chronic anemia, diabetes, schizophrenia, ascites (secondary to poor nutrition/ESRD, no evidence of liver disease), and recent multiple admissions for recurrent upper GI bleed admitted on 04/17/2019 due to AMS and SOB: 1) Sepsis +/- severe hypovolemia due to bleed: present on admission with hypothermia, hypotension, source likely UTI. Blood culture 04/17/2019 no growth today. 2) CAUTI ? murphy present. 3) Severe anemia from GI Bleed 4) Recurrrent GI bleed: she is s/p empiric embolization of L gastric artery 02/10/2019. EGD 02/13/19 revealed large ulcer (4cm) on lesser curve; no visible vessel, mild gastritis, and small hiatal hernia (bx negative for H.pyl oni/malignancy) s/p repeat EGD 03/01/19 that showed ulcerative esophagitis with adherent clot with underlying oozing of blood (clip x 1 with hemostasis), and large ulcer along lesser curvature as seen on prior endoscopy with necrosis appearance but no high risk bleeding lesions. She has a negative colonoscopy at [facility] per pt report 01/2019. 5) ESRD on HD 6) Chronic ascitis: No evidence of SBP on ascitic fluid. Recent CT abd shows massive ascitis, bilateral pleural effusions. 7) Pancytopenia: anemia due to GI bleed but unclear etiology of neutropenia and thrombocytopenia. Recommendations: monitor blood and urine cultures continue levaquin renally adjusted - expect 5 days of FQ consider Hem consult / bone marrow biopsy GI med consult Will follow. Matthias Marroquin MD [facility] ([facility] M: [phone] O: [phone] F: [phone] Subjective Date of service: 04/19/19 Principal diagnosis: hypokalemia Interval history: Awake, confused. Low temperatures remain on [place] hugger. No other acute change. Whtie count 2.9. Objective - Exam Narrative Exam: General appearance: Alert in NAD Eyes: anicteric sclerae, moist conjunctivae; no lid-lag; PERRLA HENT: Atraumatic; oropharynx clear with moist mucous membranes and no mucosal ulcerations/no oral thrush; normal hard and soft palate. Lungs: CTA, with normal respiratory effort and no intercostal retractions CV: RRR no murmur Abdomen: Soft, non-tender; no masses or hepatosplenomegaly Extremities: +maria del rosario thigh edema, no cyanosis Skin: No rash. Psych: Appropriate affect, alert and oriented to person, place and time. Neuro: alert and oriented x 3. Moving all extermities - Constitutional Vitals: Vital Signs Temp Pulse Resp BP Pulse Ox 97.5 F L 89 9 L 115/72 100 04/19/19 09:00 04/19/19 12:10 04/19/19 12:10 04/19/19 12:10 04/19/19 12:10 Temperature -Last 24 Hours Temperature 97.5 F Temperature 97.9 F Temperature 97.5 F Temperature 92.2 F Temperature 92.1 F Temperature 92.0 F Temperature 93.4 F Temperature 95.0 F Temperature 90.1 F Temperature 90.0 F Temperature 90.2 F Temperature 90.2 F - Labs CBC & Chem 7: 04/19/19 04:20 04/19/19 04:20 Labs: Abnormal lab results 04/17/19 04/18/19 04/18/19 Range/Units 23:41 12:13 20:27 WBC (4.5-11.0) K/mm3 RBC (3.65-5.03) M/mm3 Hgb 10.0 L D (10.1-14.3) gm/dl Hct 29.0 L D (30.3-42.9) % Plt Count (140-440) K/mm3 Lymph % (Auto) (13.4-35.0) % Lymph # (1.2-5.4) K/mm3 Seg Neutrophils % (40.0-70.0) % Sodium (137-145) mmol/L Chloride (98-107) mmol/L BUN (7-17) mg/dL Creatinine (0.7-1.2) mg/dL Glucose (65-100) mg/dL POC Glucose 127 H (70-105) Calcium (8.4-10.2) mg/dL Crossmatch See Detail 04/19/19 04/19/19 04/19/19 Range/Units 00:13 04:20 04:20 WBC 2.9 L (4.5-11.0) K/mm3 RBC 3.29 L (3.65-5.03) M/mm3 Hgb 9.9 L (10.1-14.3) gm/dl Hct 28.8 L (30.3-42.9) % Plt Count 49 L (140-440) K/mm3 Lymph % (Auto) 11.6 L (13.4-35.0) % Lymph # 0.3 L (1.2-5.4) K/mm3 Seg Neutrophils % 85.5 H (40.0-70.0) % Sodium 133 L (137-145) mmol/L Chloride 97.5 L (98-107) mmol/L BUN 90 H (7-17) mg/dL Creatinine 3.4 H (0.7-1.2) mg/dL Glucose 47 L (65-100) mg/dL POC Glucose 69 L (70-105) Calcium 7.1 L (8.4-10.2) mg/dL Crossmatch 04/19/19 04/19/19 04/19/19 Range/Units 05:46 06:48 10:19 WBC (4.5-11.0) K/mm3 RBC (3.65-5.03) M/mm3 Hgb (10.1-14.3) gm/dl Hct (30.3-42.9) % Plt Count (140-440) K/mm3 Lymph % (Auto) (13.4-35.0) % Lymph # (1.2-5.4) K/mm3 Seg Neutrophils % (40.0-70.0) % Sodium (137-145) mmol/L Chloride (98-107) mmol/L BUN (7-17) mg/dL Creatinine (0.7-1.2) mg/dL Glucose (65-100) mg/dL POC Glucose 48 L 127 H 63 L (70-105) Calcium (8.4-10.2) mg/dL Crossmatch 04/19/19 Range/Units 11:19 WBC (4.5-11.0) K/mm3 RBC (3.65-5.03) M/mm3 Hgb (10.1-14.3) gm/dl Hct (30.3-42.9) % Plt Count (140-440) K/mm3 Lymph % (Auto) (13.4-35.0) % Lymph # (1.2-5.4) K/mm3 Seg Neutrophils % (40.0-70.0) % Sodium (137-145) mmol/L Chloride (98-107) mmol/L BUN (7-17) mg/dL Creatinine (0.7-1.2) mg/dL Glucose (65-100) mg/dL POC Glucose 121 H (70-105) Calcium (8.4-10.2) mg/dL Crossmatch
[2019-04-19] MEDS ORDERED: NACL 0.9% 500 ML 500 ML IV NR (14:00)
--- NOTE | 2019-04-19 14:45 | Cat Scan Report ---
CT HEAD WITHOUT CONTRAST INDICATION : altered mental status. TECHNIQUE: Axial imaging performed from the skull apex through the skull base without the use of con trast. All CT scans at this location are performed using CT dose reduction for ALARA by means of aut omated exposure control. COMPARISON: 04/17/2019 FINDINGS: Parenchyma: No suspicious hypodensity. No hemorrhage, edema or mass.. Ventricles: Age commensurate enlargement of ventricles and sulci. Soft tissues: Soft tissues including the orbits appear normal. Bones: No acute osseous abnormality. Sinuses: Sinuses and mastoid air cells are clear. IMPRESSION: No acute abnormality. Signer Name: Vishal Ambriz MD Signed: 04/19/2019 2:41 PM Workstation Name: [id number]
--- NOTE | 2019-04-19 14:52 | Progress Note ---
Assessment and Plan Assessment and plan: 58-year-old woman who is a resident of [facility] well-known to [facility]. History of end-stage renal disease on dialysis. Has been admitted multiple times for GI bleed due to peptic ulcer disease, history of multiple endoscopies. [facility] she has not had dialysis since last . Seen at [facility] for one day for hematemesis and then discharged. Per the patient's daughter for some reason she did not receive dialysis at [facility] nor does she received dialysis at [facility]. She presents now with profound anemia, fluid overload, hypoxic respiratory failure, -Per family, she has not received dialysis since 6 days. -EGD 02/13/19 revealed large ulcer (4cm) on lesser curve; no visible vessel, mild gastritis, and small hiatal hernia (bx negative for H.pylori/malignancy) -s/p repeat EGD 03/01/19 that showed ulcerative esophagitis with adherent clot with underlying oozing of blood (clip x 1 with hemostasis), and large ulcer along lesser curvature as seen on prior endoscopy with necrosis appearance but no high risk bleeding lesions Acute blood loss anemia; most likely causes recurrent GI bleed. Transfused, and her hemoglobin this morning was 9.9 Acute upper GI bleed, likely due to peptic ulcer disease; PPI twice daily, patient is not actively bleeding. GI consult appreciated End-stage renal disease, missed dialysis and anasarca; potassium is normal, BUN elevated, patient is very fluid overloaded. Nephrology consult appreciated. Sepsis/UTI; ID consult, continue empiric antibiotics Hypothermia; patient is on perico hugger Ascetic fluid analysis was done and doesn't look like patient has SBP. Thrombodytopenia; transfused and plt this morning was 49 Acute hypoxic respiratory failure; due to fluid overload from missed dialysis - Pulmonary is following Hypotension; BP is on the low side of normal. Acute metabolic encephalopathy - patient is still confused, will do CT head Type 2 diabetes; SSI Chronic COPD, hypothyroidism on Synthroid, DVT prophylaxis SCDs, avoid blood thinners in light of GI bleed. The high probability of a clinically significant, sudden or life threatening deterioration of the [Neuro, GI, hematology] system(s) required my full and direct attention, intervention and personal management. The aggregate critical care time was [35 minutes] minutes. This time is in addition to time spent performing reported procedures but includes the following: [x] Data Review and interpretation [x] Patient assessment and monitoring of vital signs [x] Documentation [x] Medication orders and management History Interval history: Patient was seen and evaluated during morning rounds Patient was confused, doesn't talk much Hospitalist Physical - Physical exam Narrative exam: Not in cardiopulmonary distress. The patient appeared well nourished and normally developed. Vital signs as documented. Head exam is unremarkable. No scleral icterus . Neck is without jugular venous distension, thyromegaly, or carotid bruits. Lungs are clear to auscultation. Cardiac exam reveals regular rate and Rhythm. Abdominal exam reveals normal bowel sounds. Extremities are nonedematous and both femoral and pedal pulses are normal. 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 - Constitutional Vitals: Temp Pulse Resp BP Pulse Ox 98.2 F 83 9 L 92/60 100 04/19/19 12:00 04/19/19 13:41 04/19/19 13:41 04/19/19 13:41 04/19/19 13:41 General appearance: Present: severe distress, other (Pale) Results - Labs CBC & Chem 7: 04/19/19 04:20 04/19/19 04:20 Labs: Laboratory Last Values WBC 2.9 K/mm3 (4.5-11.0) L 04/19/19 04:20 RBC 3.29 M/mm3 (3.65-5.03) L 04/19/19 04:20 Hgb 9.9 gm/dl (10.1-14.3) L 04/19/19 04:20 Hct 28.8 % (30.3-42.9) L 04/19/19 04:20 MCV 87 fl (79-97) 04/19/19 04:20 MCH 30 pg (28-32) 04/19/19 04:20 MCHC 34 % (30-34) 04/19/19 04:20 RDW 15.2 % (13.2-15.2) 04/19/19 04:20 Plt Count 49 K/mm3 (140-440) L 04/19/19 04:20 Lymph % (Auto) 11.6 % (13.4-35.0) L 04/19/19 04:20 Gregg % (Auto) 2.6 % (0.0-7.3) 04/19/19 04:20 Eos % (Auto) 0.0 % (0.0-4.3) 04/19/19 04:20 Baso % (Auto) 0.3 % (0.0-1.8) 04/19/19 04:20 Lymph # 0.3 K/mm3 (1.2-5.4) L 04/19/19 04:20 Gregg # 0.1 K/mm3 (0.0-0.8) 04/19/19 04:20 Eos # 0.0 K/mm3 (0.0-0.4) 04/19/19 04:20 Baso # 0.0 K/mm3 (0.0-0.1) 04/19/19 04:20 Add Manual Diff Complete 04/17/19 21:53 Total Counted 100 04/17/19 21:53 Seg Neutrophils % 85.5 % (40.0-70.0) H 04/19/19 04:20 Seg Neuts % (Manual) 82 % (40.0-70.0) H 04/17/19 21:53 Band Neutrophils % 0 % 04/17/19 21:53 Lymphocytes % (Manual) 17 % (13.4-35.0) 04/17/19 21:53 Reactive Lymphs % (Man) 0 % 04/17/19 21:53 Monocytes % (Manual) 1.0 % (0.0-7.3) 04/17/19 21:53 Eosinophils % (Manual) 0 % (0.0-4.3) 04/17/19 21:53 Basophils % (Manual) 0 % (0.0-1.8) 04/17/19 21:53 Metamyelocytes % 0 % 04/17/19 21:53 Myelocytes % 0 % 04/17/19 21:53 Promyelocytes % 0 % 04/17/19 21:53 Blast Cells % 0 % 04/17/19 21:53 Nucleated RBC % Not Reportable 04/17/19 21:53 Seg Neutrophils # 2.5 K/mm3 (1.8-7.7) 04/19/19 04:20 Seg Neutrophils # Man 1.7 K/mm3 (1.8-7.7) L 04/17/19 21:53 Band Neutrophils # 0.0 K/mm3 04/17/19 21:53 Lymphocytes # (Manual) 0.3 K/mm3 (1.2-5.4) L 04/17/19 21:53 Abs React Lymphs (Man) 0.0 K/mm3 04/17/19 21:53 Monocytes # (Manual) 0.0 K/mm3 (0.0-0.8) 04/17/19 21:53 Eosinophils # (Manual) 0.0 K/mm3 (0.0-0.4) 04/17/19 21:53 Basophils # (Manual) 0.0 K/mm3 (0.0-0.1) 04/17/19 21:53 Metamyelocytes # 0.0 K/mm3 04/17/19 21:53 Myelocytes # 0.0 K/mm3 04/17/19 21:53 Promyelocytes # 0.0 K/mm3 04/17/19 21:53 Blast Cells # 0.0 K/mm3 04/17/19 21:53 WBC Morphology Not Reportable 04/17/19 21:53 Hypersegmented Neuts Not Reportable 04/17/19 21:53 Hyposegmented Neuts Not Reportable 04/17/19 21:53 Hypogranular Neuts Not Reportable 04/17/19 21:53 Smudge Cells Not Reportable 04/17/19 21:53 Toxic Granulation Not Reportable 04/17/19 21:53 Toxic Vacuolation Not Reportable 04/17/19 21:53 Dohle Bodies Not Reportable 04/17/19 21:53 Pelger-Huet Anomaly Not Reportable 04/17/19 21:53 Marcellus Rods Not Reportable 04/17/19 21:53 Platelet Estimate Appears decreased 04/17/19 21:53 Clumped Platelets Not Reportable 04/17/19 21:53 Plt Clumps, EDTA Not Reportable 04/17/19 21:53 Large Platelets Not Reportable 04/17/19 21:53 Giant Platelets Not Reportable 04/17/19 21:53 Platelet Satelliting Not Reportable 04/17/19 21:53 Plt Morphology Comment Not Reportable 04/17/19 21:53 RBC Morphology Not Reportable 04/17/19 21:53 Dimorphic RBCs Not Reportable 04/17/19 21:53 Polychromasia Not Reportable 04/17/19 21:53 Hypochromasia 2+ 04/17/19 21:53 Poikilocytosis Not Reportable 04/17/19 21:53 Anisocytosis Few 04/17/19 21:53 Microcytosis Not Reportable 04/17/19 21:53 Macrocytosis Not Reportable 04/17/19 21:53 Spherocytes Not Reportable 04/17/19 21:53 Pappenheimer Bodies Not Reportable 04/17/19 21:53 Sickle Cells Not Reportable 04/17/19 21:53 Target Cells 1+ 04/17/19 21:53 Tear Drop Cells Not Reportable 04/17/19 21:53 Ovalocytes Not Reportable 04/17/19 21:53 Helmet Cells Not Reportable 04/17/19 21:53 Pearson-Barnum Bodies Not Reportable 04/17/19 21:53 Berlin Rings Not Reportable 04/17/19 21:53 John Cells Not Reportable 04/17/19 21:53 Bite Cells Not Reportable 04/17/19 21:53 Crenated Cell Not Reportable 04/17/19 21:53 Elliptocytes Not Reportable 04/17/19 21:53 Acanthocytes (Spur) Not Reportable 04/17/19 21:53 Rouleaux Not Reportable 04/17/19 21:53 Hemoglobin C Crystals Not Reportable 04/17/19 21:53 Schistocytes Not Reportable 04/17/19 21:53 Malaria parasites Not Reportable 04/17/19 21:53 Michael Bodies Not Reportable 04/17/19 21:53 Hem Pathologist Commnt No 04/17/19 21:53 PT 16.8 Sec. (12.2-14.9) H 04/17/19 21:53 INR 1.40 (0.87-1.13) H 04/17/19 21:53 APTT 48.0 Sec. (24.2-36.6) H 04/17/19 21:53 POC ABG pH 7.354 (7.35-7.45) 04/19/19 14:12 POC ABG pCO2 52.8 (35-45) H 04/19/19 14:12 POC ABG pO2 142 (80-105) H 04/19/19 14:12 POC ABG HCO3 29.4 (22-26 mml/L) 04/19/19 14:12 POC ABG Total CO2 31 (23-27mmol/L) 04/19/19 14:12 POC ABG O2 Sat 99 04/19/19 14:12 POC ABG Base Excess 4 ((-2) - (+3)mmol/L) 04/19/19 14:12 FiO2 28 % 04/19/19 14:12 Sodium 133 mmol/L (137-145) L 04/19/19 04:20 Potassium 4.7 mmol/L (3.6-5.0) 04/19/19 04:20 Chloride 97.5 mmol/L (98-107) L 04/19/19 04:20 Carbon Dioxide 27 mmol/L (22-30) 04/19/19 04:20 Anion Gap 13 mmol/L 04/19/19 04:20 BUN 90 mg/dL (7-17) H 04/19/19 04:20 Creatinine 3.4 mg/dL (0.7-1.2) H 04/19/19 04:20 Estimated GFR 17 ml/min 04/19/19 04:20 BUN/Creatinine Ratio 26 % 04/19/19 04:20 Glucose 47 mg/dL (65-100) L 04/19/19 04:20 POC Glucose 93 (70-105) 04/19/19 13:26 Lactic Acid 1.80 mmol/L (0.7-2.0) 04/18/19 00:18 Calcium 7.1 mg/dL (8.4-10.2) L 04/19/19 04:20 Total Bilirubin 0.30 mg/dL (0.1-1.2) 04/17/19 22:00 AST 165 units/L (5-40) H 04/17/19 22:00 ALT 111 units/L (7-56) H 04/17/19 22:00 Alkaline Phosphatase 85 units/L (35-129) 04/17/19 22:00 NT-Pro-B Natriuret Pep 92587 pg/mL (0-900) H 04/17/19 22:00 Total Protein 4.5 g/dL (6.3-8.2) L 04/17/19 22:00 Albumin 2.0 g/dL (3.9-5) L 04/17/19 22:00 Albumin/Globulin Ratio 0.8 % 04/17/19 22:00 Urine Color Yellow (Yellow) 04/17/19 22:40 Urine Turbidity Turbid (Clear) 04/17/19 22:40 Urine pH 5.0 (5.0-7.0) 04/17/19 22:40 Ur Specific Emmet 1.014 (1.003-1.030) 04/17/19 22:40 Urine Protein 100 mg/dl mg/dL (Negative) 04/17/19 22:40 Urine Glucose (UA) Neg mg/dL (Negative) 04/17/19 22:40 Urine Ketones Neg mg/dL (Negative) 04/17/19 22:40 Urine Blood Lg (Negative) 04/17/19 22:40 Urine Nitrite Neg (Negative) 04/17/19 22:40 Urine Bilirubin Neg (Negative) 04/17/19 22:40 Urine Urobilinogen < 2.0 mg/dL (<2.0) 04/17/19 22:40 Ur Leukocyte Esterase Lg (Negative) 04/17/19 22:40 Urine WBC (Auto) > 182.0 /HPF (0.0-6.0) H 04/17/19 22:40 Urine RBC (Auto) > 182.0 /HPF (0.0-6.0) 04/17/19 22:40 Urine Bacteria (Auto) 4+ /HPF (Negative) 04/17/19 22:40 Urine Mucus Few /HPF 04/17/19 22:40 Urine Yeast (Budding) 3+ /HPF 04/17/19 22:40 Fluid Type Ascitic 04/18/19 11:50 Fluid Color Yellow 04/18/19 11:50 Fluid Appearance Hazy 04/18/19 11:50 Fluid WBC 4 /mm3 04/18/19 11:50 Fluid RBC 165 /mm3 04/18/19 11:50 Fluid Seg Neutrophils 17.0 % 04/18/19 11:50 Fluid Lymphocytes 37.0 % 04/18/19 11:50 Fluid Reactive Lymphs 0 % 04/18/19 11:50 Fluid Monocytes 46.0 % 04/18/19 11:50 Fluid Eosinophils 0 % 04/18/19 11:50 Fluid Basophils 0 % 04/18/19 11:50 Fluid Comment See add'l 04/18/19 11:50 Blood Type B POSITIVE 04/17/19 23:41 Antibody Screen Negative 04/17/19 23:41 Crossmatch See Detail 04/17/19 23:41 Active Medications - Current Medications Current Medications: Generic Name Dose Route Start Last Admin Trade Name Freq PRN Reason Stop Dose Admin Acetaminophen 650 mg 04/18/19 02:09 Tylenol PO Q4H PRN Pain MILD(1-3)/Fever >100.5/SEYMOUR Albuterol 2.5 mg 04/18/19 00:38 Proventil IH Q6HRT PRN Shortness Of Breath Dextrose 25 gm 04/19/19 14:22 D50w (25gm) Vial IV PRN PRN Hypoglycemia Epoetin Jean Carlos 20,000 unit 04/18/19 10:13 Procrit IV MARCELA PRN hemodialysis Levofloxacin/Dextrose 500 mg in 100 mls @ 100 mls/hr 04/18/19 10:00 04/18/19 12:06 Levaquin 500mg/100ml IV 100 mls/hr Q48HR ROSELINE Administration Pantoprazole Sodium 80 mg/ 100 mls @ 10 mls/hr 04/18/19 12:00 04/19/19 08:21 Sodium Chloride IV 8 mg/hr DIRECT ROSELINE 10 mls/hr Administration 8 MG/HR Sodium Chloride 500 mls @ 0 mls/hr 04/19/19 14:00 Nacl 0.9% 500 Ml IV 04/19/19 15:00 ONCE NR As Directed Insulin Human Regular 0 units 04/18/19 07:30 04/19/19 12:31 Humulin R SUB-Q Not Given ACHS ROSELINE Protocol Ketoconazole 1 applic 04/18/19 10:00 04/19/19 10:16 Nizoral TP 1 applic DAILY ROSELINE Administration Ondansetron HCl 4 mg 04/18/19 02:09 Zofran IV Q8H PRN Nausea And Vomiting Sodium Chloride 10 ml 04/18/19 10:00 04/19/19 10:17 Sodium Chloride Flush Syringe 10 Ml IV 10 ml BID ROSELINE Administration Sodium Chloride 10 ml 04/18/19 02:09 Sodium Chloride Flush Syringe 10 Ml IV PRN PRN LINE FLUSH
[2019-04-19] MEDS: D50W (25GM) Vial IV PRN ×2 (14:59→22:02)
[2019-04-19] MEDS ORDERED: NACL 0.9% 1000 ML 1,000 ML ONE (15:09)
--- NOTE | 2019-04-19 15:22 | Anesthesia Consultation ---
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 Ascites) Hx Insulin Dependent Diabetes: Yes (FBS 118) Hx Thyroid Disease: Yes - Hematic Hx Anemia: Yes Hx Sickle Cell Disease: No
--- NOTE | 2019-04-19 15:24 | Anesthesia Day of Surgery ---
Anesthesia Day of Surgery - Day of Surgery Patient Examined: Yes Patient H&P Reviewed: Yes Patient is NPO: Yes
[2019-04-19] MEDS ORDERED: XYLOCAINE MPF 2% ONE (15:45)
--- NOTE | 2019-04-19 16:08 | Operative Report ---
Operative Report Operative Report: EGD Procedure Note with Biopsies Date of procedure: 04/19/2019 Endoscopist: Tristian Thomas Pre-op diagnosis/indication: Upper GI bleeding, melena Post-op diagnosis: Ulcer in lesser curvature of gastric body (significantly improved); severe ulcerative esophagitis. MEDICATIONS: MAC COMPLICATIONS: No immediate complications ESTIMATED BLOOD LOSS: Minimal DESCRIPTION OF PROCEDURE: After consent was obtained, the patient was placed in the left lateral decubitis position. The olympus endoscope was inserted into the patient's mouth under direct vision, and advanced into the esophagus, stomach, and 2nd portion of the duodenum. The patient tolerated the procedure well. The patient's vital signs were monitored continuously throughout the procedure. FINDINGS: There was severe ulcerative esophagitis throughout the entire esophagus. One biospy was obtained to rule out infectious etiology. Further biopsies were not done due to thrombocytopenia and risks of bleeding. There was a linear, ~8 mm, ulcer in the lesser curvature of the body. This was the site of the previously documented ulcer on prior endoscopy with significant healing since that time. No high risk bleeding stigmata was seen. There was mild erythematous mucosa in the 2nd portion of the duodenum without high risk bleeding stigmata. IMPRESSION: 1. Severe ulcerative esophagitis. Biopsied. 2. Improved gastric ulcer in the gastric body at previous ulcer site. No high risk bleeding stigmata. RECOMMENDATIONS: -PPI BID dosing -carafate QID -follow-up pathology -okay to start clears from GI stand point
[2019-04-19] MEDS ORDERED: DIPRIVAN 10 MG/ML IV ONE (16:19)
[2019-04-19] MEDS: CARAFATE PO SCH (19:16)
--- NOTE | 2019-04-19 19:43 | Post Anesthesia Evaluation ---
- Post Anesthesia Evaluation Patient Participated: Yes Airway Patent: Yes Stable Respiratory Function: Yes Nausea/Vomiting: No Temp > 96.8F: Yes Pain Manageable: Yes Adequeate Hydration: Yes Anesthesia Complications: No Block Receding Appropriately: Not Applicable Patient on Ventilator: No
[2019-04-20] MEDS: D50W (25GM) Vial IV PRN ×2 (04:11→06:04)
[2019-04-20 05:31] LABS: Basophils % (Auto) 0.6 % (0.0-1.8); Hematocrit 27.3 % (30.3-42.9); Hemoglobin 9.2 gm/dl (10.1-14.3); Lymphocytes # (Auto) 0.4 K/mm3 (1.2-5.4); Lymphocytes % (Auto) 15.1 % (13.4-35.0); Mean Corpuscular HGB Conc 34 % (30-34); Mean Corpuscular Volume 88 fl (79-97); Monocytes # (Auto) 0.1 K/mm3 (0.0-0.8); Monocytes % (Auto) 5.2 % (0.0-7.3); Red Cell Distribution Width 15.5 % (13.2-15.2)
[2019-04-20 05:40] LABS: Platelet Count 75 K/mm3 (140-440)
[2019-04-20] MEDS: HumuLIN R SUB-Q SCH ×5 (05:51→21:51)
[2019-04-20] MEDS: CARAFATE PO SCH ×3 (05:51→18:44)
[2019-04-20 06:00] LABS: Calcium 7.1 mg/dL (8.4-10.2)
[2019-04-20] MEDS: PROTONIX 80 MG in NACL 0.9% 100 ML IV SCH ×2 (07:38→22:04)
--- NOTE | 2019-04-20 08:55 | Event Note ---
Date: 04/20/19 [id number]
[2019-04-20] MEDS: LEVAQUIN 500MG/100ML 500 MG/100 ML BAG IV SCH (10:09)
[2019-04-20] MEDS ORDERED: ALBURX 25% (ALBUMIN) IV PRN (10:09)
[2019-04-20] MEDS: SODIUM CHLORIDE FLUSH SYRINGE 10 ML IV SCH ×2 (10:09→22:04)
[2019-04-20] MEDS ORDERED: NACL 0.9% 100 ML IV PRN (10:09)
[2019-04-20] MEDS ORDERED: PROAMATINE PO PRN (10:09)
--- NOTE | 2019-04-20 10:12 | Progress Note ---
Assessment and Plan Assessment: -ESRD on HD- MWF at [facility] -CAD -hematemesis -anemia acute blood loss POA -peptic ulcer disease Plan: -continue HD once hb is adequate, needed, attempt [employer] today -appreciate cardiology and GI input uf only if tolerated -will provide ESAs as indicated serial H/H, needs prbcs prn -avoid nephrotoxins, renally dose all medications -strict Is/Os Subjective Date of service: 04/20/19 Principal diagnosis: hypokalemia Interval history: resting in bed Objective - Exam Narrative Exam: General appearance: Present: severe distress, other (Pale) - EENT Eyes: Present: PERRL ENT: hearing intact, clear oral mucosa - Neck Neck: Present: supple, normal ROM - Respiratory Respiratory effort: normal Respiratory: bilateral: rales - Cardiovascular Heart Sounds: Present: S1 & S2. Absent: rub, click - Extremities Extremities: pulses symmetrical Extremity abnormal: edema Peripheral Pulses: within normal limits - Abdominal General gastrointestinal: Present: soft, non-tender, normal bowel sounds, other (ascites) Female genitourinary: Present: normal - Integumentary Integumentary: Present: clear, warm, dry - Musculoskeletal Musculoskeletal: gait normal, strength equal bilaterally - Psychiatric Psychiatric: no intact judgment & insight, cooperative - Neurologic Neurologic: CNII-XII intact, moves all extremities - Vital Signs Vital signs: Vital Signs - 12hr 04/19/19 04/19/19 04/19/19 22:17 22:21 22:30 Temperature Pulse Rate 87 88 90 Pulse Rate [ From Monitor] Respiratory 10 L 10 L 9 L Rate Blood Pressure 110/68 110/68 109/67 O2 Sat by Pulse 100 99 Oximetry 04/19/19 04/19/19 04/19/19 22:41 22:51 23:00 Temperature Pulse Rate 90 92 H 101 H Pulse Rate [ From Monitor] Respiratory 9 L 10 L 13 Rate Blood Pressure 109/67 108/67 114/74 O2 Sat by Pulse 100 99 96 Oximetry 04/19/19 04/19/19 04/19/19 23:11 23:21 23:30 Temperature Pulse Rate 103 H 104 H 103 H Pulse Rate [ From Monitor] Respiratory 16 13 12 Rate Blood Pressure 114/74 112/73 107/67 O2 Sat by Pulse 97 98 95 Oximetry 04/19/19 04/19/19 04/19/19 23:40 23:41 23:51 Temperature 99.6 F Pulse Rate 104 H 104 H Pulse Rate [ From Monitor] Respiratory 14 13 Rate Blood Pressure 107/67 105/68 O2 Sat by Pulse 99 98 Oximetry 04/20/19 04/20/19 04/20/19 00:00 00:11 00:21 Temperature Pulse Rate 102 H 102 H 101 H Pulse Rate [ 101 H From Monitor] Respiratory 15 14 14 Rate Blood Pressure 101/66 101/66 114/72 O2 Sat by Pulse 96 96 96 Oximetry 04/20/19 04/20/19 04/20/19 00:30 00:41 00:51 Temperature Pulse Rate 101 H 107 H 102 H Pulse Rate [ From Monitor] Respiratory 14 17 14 Rate Blood Pressure 98/61 98/61 98/61 O2 Sat by Pulse 99 99 Oximetry 04/20/19 04/20/19 04/20/19 01:00 01:11 01:20 Temperature Pulse Rate 105 H 104 H 106 H Pulse Rate [ From Monitor] Respiratory 18 14 15 Rate Blood Pressure 109/71 109/71 103/67 O2 Sat by Pulse 97 97 98 Oximetry 04/20/19 04/20/19 04/20/19 01:30 01:40 01:51 Temperature Pulse Rate 109 H 110 H 116 H Pulse Rate [ From Monitor] Respiratory 17 16 15 Rate Blood Pressure 100/68 100/68 100/68 O2 Sat by Pulse 98 97 98 Oximetry 04/20/19 04/20/19 04/20/19 02:00 02:11 02:20 Temperature Pulse Rate 113 H 107 H 113 H Pulse Rate [ From Monitor] Respiratory 14 15 15 Rate Blood Pressure 114/68 114/68 101/63 O2 Sat by Pulse 97 97 97 Oximetry 04/20/19 04/20/19 04/20/19 02:30 02:40 02:50 Temperature Pulse Rate 116 H 120 H 118 H Pulse Rate [ From Monitor] Respiratory 15 12 15 Rate Blood Pressure 104/70 101/63 104/66 O2 Sat by Pulse 99 98 98 Oximetry 04/20/19 04/20/19 04/20/19 03:00 03:10 03:20 Temperature Pulse Rate 120 H 118 H 120 H Pulse Rate [ From Monitor] Respiratory 15 13 13 Rate Blood Pressure 99/59 99/59 99/64 O2 Sat by Pulse 95 97 98 Oximetry 04/20/19 04/20/1904/20/19 03:30 03:40 03:50 Temperature Pulse Rate 124 H 119 H 117 H Pulse Rate [ From Monitor] Respiratory 20 16 15 Rate Blood Pressure 107/64 107/64 100/57 O2 Sat by Pulse 98 98 98 Oximetry 04/20/19 04/20/19 04/20/19 03:54 04:00 04:10 Temperature 98.4 F Pulse Rate 117 H 115 H Pulse Rate [ 114 H From Monitor] Respiratory 15 15 Rate Blood Pressure 100/57 104/62 O2 Sat by Pulse 98 97 Oximetry 04/20/19 04/20/19 04/20/19 04:20 04:30 04:40 Temperature Pulse Rate 110 H 108 H 114 H Pulse Rate [ From Monitor] Respiratory 14 12 14 Rate Blood Pressure 109/65 104/64 104/64 O2 Sat by Pulse 100 98 Oximetry 04/20/19 04/20/19 04/20/19 04:50 05:00 05:10 Temperature Pulse Rate 114 H 109 H 108 H Pulse Rate [ From Monitor] Respiratory 15 12 15 Rate Blood Pressure 107/64 100/60 100/60 O2 Sat by Pulse 99 99 97 Oximetry 04/20/19 04/20/19 04/20/19 05:20 05:30 05:40 Temperature Pulse Rate 107 H 97 H 100 H Pulse Rate [ From Monitor] Respiratory 15 11 L 12 Rate Blood Pressure 97/66 98/63 98/63 O2 Sat by Pulse 99 99 Oximetry 04/20/19 04/20/19 04/20/19 05:50 06:00 06:10 Temperature Pulse Rate 104 H 103 H 95 H Pulse Rate [ From Monitor] Respiratory 11 L 11 L 11 L Rate Blood Pressure 100/60 110/71 110/71 O2 Sat by Pulse 100 99 100 Oximetry 04/20/19 04/20/19 04/20/19 06:20 06:30 06:40 Temperature Pulse Rate 100 H 109 H 106 H Pulse Rate [ From Monitor] Respiratory 12 13 13 Rate Blood Pressure 110/71 116/69 116/69 O2 Sat by Pulse 100 100 99 Oximetry 04/20/19 04/20/19 04/20/19 06:50 07:00 07:10 Temperature Pulse Rate 102 H 101 H 100 H Pulse Rate [ From Monitor] Respiratory 12 14 13 Rate Blood Pressure 117/76 112/76 112/76 O2 Sat by Pulse 100 100 100 Oximetry 04/20/19 04/20/19 04/20/19 07:20 07:30 07:40 Temperature Pulse Rate 100 H 99 H 102 H Pulse Rate [ From Monitor] Respiratory 16 12 18 Rate Blood Pressure 111/74 107/70 107/70 O2 Sat by Pulse 100 99 Oximetry 04/20/19 04/20/19 04/20/19 07:50 08:00 08:10 Temperature 97.8 F Pulse Rate 97 H 91 H 93 H Pulse Rate [ 92 H From Monitor] Respiratory 13 9 L 11 L Rate Blood Pressure 105/66 105/69 105/69 O2 Sat by Pulse 100 100 100 Oximetry 04/20/19 04/20/19 04/20/19 08:20 08:30 08:57 Temperature Pulse Rate 98 H 91 H Pulse Rate [ From Monitor] Respiratory 16 13 Rate Blood Pressure 109/69 111/66 O2 Sat by Pulse 100 Oximetry - Lab 04/20/19 04:45 04/20/19 04:45 Most recent lab results Calcium 7.1 mg/dL (8.4-10.2) L 04/20/19 04:45 Medications & Allergies - Medications Allergies/Adverse Reactions: Allergies guaifenesin [From Robitussin] Allergy (Verified 02/09/19 07:00) Hives Penicillins Allergy (Verified 02/09/19 07:00) Hives Home Medications: Home Medications Medication Instructions Recorded Confirmed Last Taken Type Acetaminophen [Acetaminophen TAB] 650 mg PO Q12HR PRN 02/09/19 04/18/19 04/05/19 History Polyethylene Glycol 3350 [Miralax 17 gm PO DAILY 02/09/19 04/18/19 04/05/19 History 3350] Albuterol Sulfate [Proair 2 puff IH Q6HR PRN 02/28/19 04/18/19 04/05/19 History Respiclick] Antifungal 1% CREAM 1 pack TP DAILY 02/28/19 04/18/19 04/05/19 History Calcium Acetate [Phoslo] 667 mg PO TID 02/28/19 04/18/19 04/05/19 History Ferrous Sulfate [Feosol 325 MG tab] 325 mg PO BID 02/28/19 04/18/19 04/05/19 History Folic Acid [Folvite] 1 mg PO DAILY 02/28/19 04/18/19 04/05/19 History Glucagon (Human Recomb) [Glucagen] 1 mg IM Q15MIN PRN 02/28/19 04/18/19 04/05/19 History Insulin Lispro [Humalog 100 100 unit SQ PRN PRN 02/28/19 04/18/19 04/05/19 History UNITS/ML Kwikpen] Levothyroxine [Synthroid] 150 mcg PO QAM 02/28/19 04/18/19 04/05/19 History PARoxetine HCl [PARoxetine] 20 mg PO HS 02/28/19 04/18/19 04/05/19 History Sennosides Tab [Senokot] 1 tab PO HS PRN 02/28/19 04/18/19 04/05/19 History Thiamine [Vitamin B-1] 100 mg PO DAILY 02/28/19 04/18/19 04/05/19 History risperiDONE [Risperdal] 2 mg PO DAILY 02/28/19 04/18/19 04/05/19 History Pantoprazole [Protonix TAB] 40 mg PO BID 60 Days tablet 03/06/19 04/18/19 04/05/19 Rx AtorvaSTATin 80 mg PO HS 04/18/19 04/18/19 Unknown History Levothyroxine 150 mcg PO DAILY 04/18/19 04/18/19 Unknown History Midodrine 10 mg PO 3XW 04/18/19 04/18/19 Unknown History Active Medications: Generic Name Dose Route Start Last Admin Trade Name Freq PRN Reason Stop Dose Admin Acetaminophen 650 mg 04/18/19 02:09 Tylenol PO Q4H PRN Pain MILD(1-3)/Fever >100.5/SEYMOUR Albuterol 2.5 mg 04/18/19 00:38 Proventil IH Q6HRT PRN Shortness Of Breath Dextrose 25 gm 04/19/19 14:22 04/20/19 06:04 D50w (25gm) Vial IV 25 gm PRN PRN Administration Hypoglycemia Epoetin Jean Carlos 20,000 unit 04/18/19 10:13 Procrit IV MARCELA PRN hemodialysis Levofloxacin/Dextrose 500 mg in 100 mls @ 100 mls/hr 04/18/19 10:00 04/20/19 10:09 Levaquin 500mg/100ml IV 100 mls/hr Q48HR ROSELINE Administration Pantoprazole Sodium 80 mg/ 100 mls @ 10 mls/hr 04/18/19 12:00 04/20/19 07:38 Sodium Chloride IV 04/20/19 11:59 8 mg/hr DIRECT ROSELINE 10 mls/hr Administration 8 MG/HR Insulin Human Regular 0 units 04/18/19 07:30 04/20/19 07:41 Humulin R SUB-Q Not Given ACHS ROSELINE Protocol Ketoconazole 1 applic 04/18/19 10:00 04/19/19 10:16 Nizoral TP 1 applic DAILY ROSELINE Administration Ondansetron HCl 4 mg 04/18/19 02:09 Zofran IV Q8H PRN Nausea And Vomiting Pantoprazole Sodium 40 mg 04/20/19 22:00 Protonix PO BID ROSELINE Sodium Chloride 10 ml 04/18/19 10:00 04/20/19 10:09 Sodium Chloride Flush Syringe 10 Ml IV 10 ml BID ROSELINE Administration Sodium Chloride 10 ml 04/18/19 02:09 Sodium Chloride Flush Syringe 10 Ml IV PRN PRN LINE FLUSH Sucralfate 1 gm 04/19/19 18:00 04/20/19 05:51 Carafate PO Not Given Q6HR ROSELINE
[2019-04-20] MEDS: NIZORAL TP SCH (11:21)
--- NOTE | 2019-04-20 13:49 | Progress Note ---
Assessment and Plan Assessment and plan: 58-year-old woman who is a resident of [facility] well-known to [facility]. History of end-stage renal disease on dialysis. Has been admitted multiple times for GI bleed due to peptic ulcer disease, history of multiple endoscopies. Who was brought to the hospital [facility] use she has not had dialysis since last . Seen at [facility] for one day for hematemesis and then discharged. Per the patient's daughter for some reason she did not receive dialysis at [facility] nor does she received dialysis at [facility]. She presents now with profound anemia, fluid overload, hypoxic respiratory failure, -Per family, she has not received dialysis since 6 days. -EGD 02/13/19 revealed large ulcer (4cm) on lesser curve; no visible vessel, mild gastritis, and small hiatal hernia (bx negative for H.pylori/malignancy) -s/p repeat EGD 03/01/19 that showed ulcerative esophagitis with adherent clot with underlying oozing of blood (clip x 1 with hemostasis), and large ulcer along lesser curvature as seen on prior endoscopy with necrosis appearance but no high risk bleeding lesions Acute blood loss anemia; most likely causes recurrent GI bleed. Transfused, and H&H is currently stable Acute upper GI bleed, likely due to peptic ulcer disease; PPI twice daily, patient is not actively bleeding. GI consult appreciated End-stage renal disease, missed dialysis and anasarca; potassium is normal, BUN elevated, patient is very fluid overloaded. Nephrology consult appreciated. Sepsis/UTI; ID consult, continue empiric antibiotics Hypothermia; patient is on perico hugger Ascetic fluid analysis was done and doesn't look like patient has SBP. Thrombodytopenia; transfused and plt this morning was 105 Hematology oncology consulted Acute hypoxic respiratory failure; due to fluid overload from missed dialysis - Pulmonary is following Hypotension; BP is on the low side of normal. Hypothermia; on perico hugger Acute metabolic encephalopathy - patient is still confused, will do CT head Type 2 diabetes; SSI Chronic COPD, hypothyroidism on Synthroid, DVT prophylaxis SCDs, avoid blood thinners in light of GI bleed. The high probability of a clinically significant, sudden or life threatening deterioration of the [Neuro, GI, hematology] system(s) required my full and direct attention, intervention and personal management. The aggregate critical care time was [35 minutes] minutes. This time is in addition to time spent performing reported procedures but includes the following: [x] Data Review and interpretation [x] Patient assessment and monitoring of vital signs [x] Documentation [x] Medication orders and management History Interval history: Patient was seen and evaluated during morning rounds Patient was confused, doesn't talk much Hospitalist Physical - Physical exam Narrative exam: Not in cardiopulmonary distress. The patient appeared well nourished and normally developed. Vital signs as documented. Head exam is unremarkable. No scleral icterus . Neck is without jugular venous distension, thyromegaly, or carotid bruits. Lungs are clear to auscultation. Cardiac exam reveals regular rate and Rhythm. Abdominal exam reveals normal bowel sounds. Extremities are nonedematous and both femoral and pedal pulses are normal. 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 - Constitutional Vitals: Temp Pulse Resp BP Pulse Ox 97.8 F 84 10 L 103/72 100 04/20/19 12:29 04/20/19 13:30 04/20/19 12:30 04/20/19 13:30 04/20/19 12:29 General appearance: Present: severe distress, other (Pale) Results - Labs CBC & Chem 7: 04/20/19 04:45 04/20/19 04:45 Labs: Laboratory Last Values WBC 2.7 K/mm3 (4.5-11.0) L 04/20/19 04:45 RBC 3.10 M/mm3 (3.65-5.03) L 04/20/19 04:45 Hgb 9.2 gm/dl (10.1-14.3) L 04/20/19 04:45 Hct 27.3 % (30.3-42.9) L 04/20/19 04:45 MCV 88 fl (79-97) 04/20/19 04:45 MCH 30 pg (28-32) 04/20/19 04:45 MCHC 34 % (30-34) 04/20/19 04:45 RDW 15.5 % (13.2-15.2) H 04/20/19 04:45 Plt Count 75 K/mm3 (140-440) L 04/20/19 04:45 Lymph % (Auto) 15.1 % (13.4-35.0) 04/20/19 04:45 Whitman % (Auto) 5.2 % (0.0-7.3) 04/20/19 04:45 Eos % (Auto) 0.0 % (0.0-4.3) 04/20/19 04:45 Baso % (Auto) 0.6 % (0.0-1.8) 04/20/19 04:45 Lymph # 0.4 K/mm3 (1.2-5.4) L 04/20/19 04:45 Whitman # 0.1 K/mm3 (0.0-0.8) 04/20/19 04:45 Eos # 0.0 K/mm3 (0.0-0.4) 04/20/19 04:45 Baso # 0.0 K/mm3 (0.0-0.1) 04/20/19 04:45 Add Manual Diff Complete 04/17/19 21:53 Total Counted 100 04/17/19 21:53 Seg Neutrophils % 79.1 % (40.0-70.0) H 04/20/19 04:45 Seg Neuts % (Manual) 82 % (40.0-70.0) H 04/17/19 21:53 Band Neutrophils % 0 % 04/17/19 21:53 Lymphocytes % (Manual) 17 % (13.4-35.0) 04/17/19 21:53 Reactive Lymphs % (Man) 0 % 04/17/19 21:53 Monocytes % (Manual) 1.0 % (0.0-7.3) 04/17/19 21:53 Eosinophils % (Manual) 0 % (0.0-4.3) 04/17/19 21:53 Basophils % (Manual) 0 % (0.0-1.8) 04/17/19 21:53 Metamyelocytes % 0 % 04/17/19 21:53 Myelocytes % 0 % 04/17/19 21:53 Promyelocytes % 0 % 04/17/19 21:53 Blast Cells % 0 % 04/17/19 21:53 Nucleated RBC % Not Reportable 04/17/19 21:53 Seg Neutrophils # 2.1 K/mm3 (1.8-7.7) 04/20/19 04:45 Seg Neutrophils # Man 1.7 K/mm3 (1.8-7.7) L 04/17/19 21:53 Band Neutrophils # 0.0 K/mm3 04/17/19 21:53 Lymphocytes # (Manual) 0.3 K/mm3 (1.2-5.4) L 04/17/19 21:53 Abs React Lymphs (Man) 0.0 K/mm3 04/17/19 21:53 Monocytes # (Manual) 0.0 K/mm3 (0.0-0.8) 04/17/19 21:53 Eosinophils # (Manual) 0.0 K/mm3 (0.0-0.4) 04/17/19 21:53 Basophils # (Manual) 0.0 K/mm3 (0.0-0.1) 04/17/19 21:53 Metamyelocytes # 0.0 K/mm3 04/17/19 21:53 Myelocytes # 0.0 K/mm3 04/17/19 21:53 Promyelocytes # 0.0 K/mm3 04/17/19 21:53 Blast Cells # 0.0 K/mm3 04/17/19 21:53 WBC Morphology Not Reportable 04/17/19 21:53 Hypersegmented Neuts Not Reportable 04/17/19 21:53 Hyposegmented Neuts Not Reportable 04/17/19 21:53 Hypogranular Neuts Not Reportable 04/17/19 21:53 Smudge Cells Not Reportable 04/17/19 21:53 Toxic Granulation Not Reportable 04/17/19 21:53 Toxic Vacuolation Not Reportable 04/17/19 21:53 Dohle Bodies Not Reportable 04/17/19 21:53 Pelger-Huet Anomaly Not Reportable 04/17/19 21:53 Marcellus Rods Not Reportable 04/17/19 21:53 Platelet Estimate Appears decreased 04/17/19 21:53 Clumped Platelets Not Reportable 04/17/19 21:53 Plt Clumps, EDTA Not Reportable 04/17/19 21:53 Large Platelets Not Reportable 04/17/19 21:53 Giant Platelets Not Reportable 04/17/19 21:53 Platelet Satelliting Not Reportable 04/17/19 21:53 Plt Morphology Comment Not Reportable 04/17/19 21:53 RBC Morphology Not Reportable 04/17/19 21:53 Dimorphic RBCs Not Reportable 04/17/19 21:53 Polychromasia Not Reportable 04/17/19 21:53 Hypochromasia 2+ 04/17/19 21:53 Poikilocytosis Not Reportable 04/17/19 21:53 Anisocytosis Few 04/17/19 21:53 Microcytosis Not Reportable 04/17/19 21:53 Macrocytosis Not Reportable 04/17/19 21:53 Spherocytes Not Reportable 04/17/19 21:53 Pappenheimer Bodies Not Reportable 04/17/19 21:53 Sickle Cells Not Reportable 04/17/19 21:53 Target Cells 1+ 04/17/19 21:53 Tear Drop Cells Not Reportable 04/17/19 21:53 Ovalocytes Not Reportable 04/17/19 21:53 Helmet Cells Not Reportable 04/17/19 21:53 [place] Bodies Not Reportable 04/17/19 21:53 [place] Rings Not Reportable 04/17/19 21:53 [place] Cells Not Reportable 04/17/19 21:53 Bite Cells Not Reportable 04/17/19 21:53 Crenated Cell Not Reportable 04/17/19 21:53 Elliptocytes Not Reportable 04/17/19 21:53 Acanthocytes (Spur) Not Reportable 04/17/19 21:53 Rouleaux Not Reportable 04/17/19 21:53 Hemoglobin C Crystals Not Reportable 04/17/19 21:53 Schistocytes Not Reportable 04/17/19 21:53 Malaria parasites Not Reportable 04/17/19 21:53 Michael Bodies Not Reportable 04/17/19 21:53 Hem Pathologist Commnt No 04/17/19 21:53 PT 16.8 Sec. (12.2-14.9) H 04/17/19 21:53 INR 1.40 (0.87-1.13) H 04/17/19 21:53 APTT 48.0 Sec. (24.2-36.6) H 04/17/19 21:53 POC ABG pH 7.354 (7.35-7.45) 04/19/19 14:12 POC ABG pCO2 52.8 (35-45) H 04/19/19 14:12 POC ABG pO2 142 (80-105) H 04/19/19 14:12 POC ABG HCO3 29.4 (22-26 mml/L) 04/19/19 14:12 POC ABG Total CO2 31 (23-27mmol/L) 04/19/19 14:12 POC ABG O2 Sat 99 04/19/19 14:12 POC ABG Base Excess 4 ((-2) - (+3)mmol/L) 04/19/19 14:12 FiO2 28 % 04/19/19 14:12 Sodium 137 mmol/L (137-145) 04/20/19 04:45 Potassium 4.8 mmol/L (3.6-5.0) 04/20/19 04:45 Chloride 100.1 mmol/L (98-107) 04/20/19 04:45 Carbon Dioxide 26 mmol/L (22-30) 04/20/19 04:45 Anion Gap 16 mmol/L 04/20/19 04:45 BUN 96 mg/dL (7-17) H 04/20/19 04:45 Creatinine 3.5 mg/dL (0.7-1.2) H 04/20/19 04:45 Estimated GFR 16 ml/min 04/20/19 04:45 BUN/Creatinine Ratio 27 % 04/20/19 04:45 Glucose 105 mg/dL (65-100) H 04/20/19 04:45 POC Glucose 92 (70-105) 04/20/19 12:11 Lactic Acid 1.80 mmol/L (0.7-2.0) 04/18/19 00:18 Calcium 7.1 mg/dL (8.4-10.2) L 04/20/19 04:45 Total Bilirubin 0.30 mg/dL (0.1-1.2) 04/17/19 22:00 AST 165 units/L (5-40) H 04/17/19 22:00 ALT 111 units/L (7-56) H 04/17/19 22:00 Alkaline Phosphatase 85 units/L (35-129) 04/17/19 22:00 NT-Pro-B Natriuret Pep 29365 pg/mL (0-900) H 04/17/19 22:00 Total Protein 4.5 g/dL (6.3-8.2) L 04/17/19 22:00 Albumin 2.0 g/dL (3.9-5) L 04/17/19 22:00 Albumin/Globulin Ratio 0.8 % 04/17/19 22:00 Urine Color Yellow (Yellow) 04/17/19 22:40 Urine Turbidity Turbid (Clear) 04/17/19 22:40 Urine pH 5.0 (5.0-7.0) 04/17/19 22:40 Ur Specific [place] 1.014 (1.003-1.030) 04/17/19 22:40 Urine Protein 100 mg/dl mg/dL (Negative) 04/17/19 22:40 Urine Glucose (UA) Neg mg/dL (Negative) 04/17/19 22:40 Urine Ketones Neg mg/dL (Negative) 04/17/19 22:40 Urine Blood Lg (Negative) 04/17/19 22:40 Urine Nitrite Neg (Negative) 04/17/19 22:40 Urine Bilirubin Neg (Negative) 04/17/19 22:40 Urine Urobilinogen < 2.0 mg/dL (<2.0) 04/17/19 22:40 Ur Leukocyte Esterase Lg (Negative) 04/17/19 22:40 Urine WBC (Auto) > 182.0 /HPF (0.0-6.0) H 04/17/19 22:40 Urine RBC (Auto) > 182.0 /HPF (0.0-6.0) 04/17/19 22:40 Urine Bacteria (Auto) 4+ /HPF (Negative) 04/17/19 22:40 Urine Mucus Few /HPF 04/17/19 22:40 Urine Yeast (Budding) 3+ /HPF 04/17/19 22:40 Fluid Type Ascitic 04/18/19 11:50 Fluid Color Yellow 04/18/19 11:50 Fluid Appearance Hazy 04/18/19 11:50 Fluid WBC 4 /mm3 04/18/19 11:50 Fluid RBC 165 /mm3 04/18/19 11:50 Fluid Seg Neutrophils 17.0 % 04/18/19 11:50 Fluid Lymphocytes 37.0 % 04/18/19 11:50 Fluid Reactive Lymphs 0 % 04/18/19 11:50 Fluid Monocytes 46.0 % 04/18/19 11:50 Fluid Eosinophils 0 % 04/18/19 11:50 Fluid Basophils 0 % 04/18/19 11:50 Fluid Comment See add'l 04/18/19 11:50 Blood Type B POSITIVE 04/17/19 23:41 Antibody Screen Negative 04/17/19 23:41 Crossmatch See Detail 04/17/19 23:41 Active Medications - Current Medications Current Medications: Generic Name Dose Route Start Last Admin Trade Name Freq PRN Reason Stop Dose Admin Acetaminophen 650 mg 04/18/19 02:09 Tylenol PO Q4H PRN Pain MILD(1-3)/Fever >100.5/SEYMOUR Albumin Human 25 gm 04/20/19 10:09 Alburx 25% (Albumin) IV MARCELA PRN Hypotension Albuterol 2.5 mg 04/18/19 00:38 Proventil IH Q6HRT PRN Shortness Of Breath Dextrose 25 gm 04/19/19 14:22 04/20/19 06:04 D50w (25gm) Vial IV 25 gm PRN PRN Administration Hypoglycemia Epoetin Jean Carlos 20,000 unit 04/18/19 10:13 Procrit IV MARCELA PRN hemodialysis Levofloxacin/Dextrose 500 mg in 100 mls @ 100 mls/hr 04/18/19 10:00 04/20/19 10:09 Levaquin 500mg/100ml IV 100 mls/hr Q48HR ROSELINE Administration Sodium Chloride 100 mls @ 999 mls/hr 04/20/19 10:09 Nacl 0.9% IV MARCELA PRN Hypotension Pantoprazole Sodium 80 mg/ 100 mls @ 10 mls/hr 04/20/19 13:00 Sodium Chloride IV DIRECT ROSELINE 8 MG/HR Insulin Human Regular 0 units 04/18/19 07:30 04/20/19 12:02 Humulin R SUB-Q Not Given ACHS ROSELINE Protocol Ketoconazole 1 applic 04/18/19 10:00 04/20/19 11:21 Nizoral TP 1 applic DAILY ROSELINE Administration Midodrine 5 mg 04/20/19 10:09 Proamatine PO MARCELA PRN Hypotension Ondansetron HCl 4 mg 04/18/19 02:09 Zofran IV Q8H PRN Nausea And Vomiting Sodium Chloride 10 ml 04/18/19 10:00 04/20/19 10:09 Sodium Chloride Flush Syringe 10 Ml IV 10 ml BID ROSELINE Administration Sodium Chloride 10 ml 04/18/19 02:09 Sodium Chloride Flush Syringe 10 Ml IV PRN PRN LINE FLUSH Sucralfate 1 gm 04/19/19 18:00 04/20/19 12:21 Carafate PO 1 gm Q6HR ROSELINE Administration
--- NOTE | 2019-04-20 16:18 | Procedure Note ---
Date of procedure: 04/20/19 Pre-op diagnosis: ascites Post-op diagnosis: same Procedure: US paracentesis Findings: moderate ascites Anesthesia: local Surgeon: MALU ALMARAZ Estimated blood loss: none Pathology: list (120cc) Specimen disposition: to lab Condition: stable Disposition: floor
--- NOTE | 2019-04-20 16:58 | Progress Note ---
Assessment and Plan Cultures: Blood culture 04/17/2019 no growth today. urine culture 04/19/2019 - Jennifer Assessment: 58 y/o female with history of recurrent GI, ESRD on HD, CHF, CVA, chronic anemia, diabetes, schizophrenia, ascites (secondary to poor nutrition/ESRD, no evidence of liver disease), and recent multiple admissions for recurrent upper GI bleed admitted on 04/17/2019 due to AMS and SOB: 1) Sepsis +/- severe hypovolemia due to bleed: present on admission with hypothermia, hypotension, source likely UTI. Blood culture 04/17/2019 no growth today. 2) CAUTI ? murphy present. 3) Severe anemia from GI Bleed 4) Recurrrent GI bleed: she is s/p empiric embolization of L gastric artery 02/10/2019. EGD 02/13/19 revealed large ulcer (4cm) on lesser curve; no visible vessel, mild gastritis, and small hiatal hernia (bx negative for H.pylori/malignancy) s/p repeat EGD 03/01/19 that showed ulcerative esophagitis with adherent clot with underlying oozing of blood (clip x 1 with hemostasis), and large ulcer along lesser curvature as seen on prior endoscopy with necrosis appearance but no high risk bleeding lesions. She has a negative colonoscopy at [facility] per pt report 01/2019. 5) ESRD on HD 6) Chronic ascitis: No evidence of SBP on ascitic fluid. Recent CT abd shows massive ascitis, bilateral pleural effusions. 7) Pancytopenia: anemia due to GI bleed but unclear etiology of neutropenia and thrombocytopenia. 8) Candiduria - rarely represent true pathogen, would not treat. Recommendations: monitor blood and urine cultures continue levaquin renally adjusted - expect 5 days of FQ consider Hem consult / bone marrow biopsy EGD shows improved ulcer and obtained biopsy of ulcerated esophagitis. Will follow. Matthias Marroquin MD [facility] ([facility] M: [phone] O: [phone] F: [phone] Subjective Date of service: 04/20/19 Principal diagnosis: hypokalemia Interval history: Awake, confused. Low temperatures remain on [place]. No other acute change. White count slightly low Objective - Exam Narrative Exam: General appearance: Alert in NAD Eyes: anicteric sclerae, moist conjunctivae; no lid-lag; PERRLA HENT: Atraumatic; oropharynx clear with moist mucous membranes and no mucosal ulcerations/no oral thrush; normal hard and soft palate. Lungs: CTA, with normal respiratory effort and no intercostal retractions CV: RRR no murmur Abdomen: Soft, non-tender; no masses or hepatosplenomegaly Extremities: +[place] thigh edema, no cyanosis Skin: No rash. Psych: Appropriate affect, alert and oriented to person, place and time. Neuro: alert and oriented x 3. Moving all extermities - Constitutional Vitals: Vital Signs Temp Pulse Resp BP Pulse Ox 97.8 F 90 10 L 130/88 100 04/20/19 15:38 04/20/19 15:38 04/20/19 15:38 04/20/19 15:38 04/20/19 15:38 Temperature -Last 24 Hours Temperature 97.8 F Temperature 97.8 F Temperature 96.2 F Temperature 97.8 F Temperature 98.4 F Temperature 99.6 F Temperature 97.9 F Temperature 96.4 F Temperature 96.4 F Temperature 96.1 F Temperature 96.2 F Temperature 96.2 F Temperature 96.6 F - Labs CBC & Chem 7: 04/20/19 04:45 04/20/19 04:45 Labs: Abnormal lab results 04/17/19 04/19/19 04/20/19 Range/Units 23:41 22:03 04:11 WBC (4.5-11.0) K/mm3 RBC (3.65-5.03) M/mm3 Hgb (10.1-14.3) gm/dl Hct (30.3-42.9) % RDW (13.2-15.2) % Plt Count (140-440) K/mm3 Lymph # (1.2-5.4) K/mm3 Seg Neutrophils % (40.0-70.0) % BUN (7-17) mg/dL Creatinine (0.7-1.2) mg/dL Glucose (65-100) mg/dL POC Glucose 60 L 62 L (70-105) Calcium (8.4-10.2) mg/dL Crossmatch See Detail 04/20/19 04/20/19 04/20/19 Range/Units 04:45 04:45 06:49 WBC 2.7 L (4.5-11.0) K/mm3 RBC 3.10 L (3.65-5.03) M/mm3 Hgb 9.2 L (10.1-14.3) gm/dl Hct 27.3 L (30.3-42.9) % RDW 15.5 H (13.2-15.2) % Plt Count 75 L (140-440) K/mm3 Lymph # 0.4 L (1.2-5.4) K/mm3 Seg Neutrophils % 79.1 H (40.0-70.0) % BUN 96 H (7-17) mg/dL Creatinine 3.5 H (0.7-1.2) mg/dL Glucose 105 H (65-100) mg/dL POC Glucose 129 H (70-105) Calcium 7.1 L (8.4-10.2) mg/dL Crossmatch
--- NOTE | 2019-04-20 19:41 | Gastroenterology Progress Note ---
Assessment and Plan GI bleed gastric ulcer ulcerative esophagitis -H/H stable. cont IV PPI today and switch to BID dosing tomorrow if no further bleeding and H/H stable. f/u path from esophageal biopsies. carafate QID as well. will sign off, please call as needed or with questions. Subjective Date of service: 04/20/19 Principal diagnosis: GI bleed Interval history: pt seen and examined; reportedly with dark bm this morning. no further episodes since then. H/H stable. receiving dialysis at bedside. Objective - Exam Narrative Exam: Gen: NAD, chronically ill appearing CV: RRR Lungs: CTAB Abd: soft, nt, +bs Ext: anasarca - Constitutional Vitals: Temp Pulse Resp BP Pulse Ox 97.8 F 79 10 L 109/67 98 04/20/19 15:38 04/20/19 19:31 04/20/19 19:31 04/20/19 19:31 04/20/19 19:31 - Labs CBC & Chem 7: 04/20/19 04:45 04/20/19 04:45 Labs: Laboratory Results - last 24 hr 04/19/19 04/19/19 04/19/19 19:52 21:11 22:03 WBC RBC Hgb Hct MCV MCH MCHC RDW Plt Count Lymph % (Auto) [place] % (Auto) Eos % (Auto) Baso % (Auto) Lymph # [place] # Eos # Baso # Seg Neutrophils % Seg Neutrophils # Sodium Potassium Chloride Carbon Dioxide Anion Gap BUN Creatinine Estimated GFR BUN/Creatinine Ratio Glucose POC Glucose 80 77 60 L Calcium 04/19/19 04/20/19 04/20/19 23:04 00:05 01:05 WBC RBC Hgb Hct MCV MCH MCHC RDW Plt Count Lymph % (Auto) [place] % (Auto) Eos % (Auto) Baso % (Auto) Lymph # [place] # Eos # Baso # Seg Neutrophils % Seg Neutrophils # Sodium Potassium Chloride Carbon Dioxide Anion Gap BUN Creatinine Estimated GFR BUN/Creatinine Ratio Glucose POC Glucose 97 97 75 Calcium 04/20/19 04/20/19 04/20/19 02:03 03:06 04:11 WBC RBC Hgb Hct MCV MCH MCHC RDW Plt Count Lymph % (Auto) [place] % (Auto) Eos % (Auto) Baso % (Auto) Lymph # [place] # Eos # Baso # Seg Neutrophils % Seg Neutrophils # Sodium Potassium Chloride Carbon Dioxide Anion Gap BUN Creatinine Estimated GFR BUN/Creatinine Ratio Glucose POC Glucose 79 76 62 L Calcium 04/20/19 04/20/19 04/20/19 04:45 04:45 05:14 WBC 2.7 L RBC 3.10 L Hgb 9.2 L Hct 27.3 L MCV 88 MCH 30 MCHC 34 RDW 15.5 H Plt Count 75 L Lymph % (Auto) 15.1 [place] % (Auto) 5.2 Eos % (Auto) 0.0 Baso % (Auto) 0.6 Lymph # 0.4 L [place] # 0.1 Eos # 0.0 Baso # 0.0 Seg Neutrophils % 79.1 H Seg Neutrophils # 2.1 Sodium 137 Potassium 4.8 Chloride 100.1 Carbon Dioxide 26 Anion Gap 16 BUN 96 H Creatinine 3.5 H Estimated GFR 16 BUN/Creatinine Ratio 27 Glucose 105 H POC Glucose 98 Calcium 7.1 L 04/20/19 04/20/19 04/20/19 06:06 06:49 08:25 WBC RBC Hgb Hct MCV MCH MCHC RDW Plt Count Lymph % (Auto) [place] % (Auto) Eos % (Auto) Baso % (Auto) Lymph # [place] # Eos # Baso # Seg Neutrophils % Seg Neutrophils # Sodium Potassium Chloride Carbon Dioxide Anion Gap BUN Creatinine Estimated GFR BUN/Creatinine Ratio Glucose POC Glucose 70 129 H 101 Calcium 04/20/19 04/20/19 04/20/19 09:21 10:09 11:13 WBC RBC Hgb Hct MCV MCH MCHC RDW Plt Count Lymph % (Auto) [place] % (Auto) Eos % (Auto) Baso % (Auto) Lymph # [place] # Eos # Baso # Seg Neutrophils % Seg Neutrophils # Sodium Potassium Chloride Carbon Dioxide Anion Gap BUN Creatinine Estimated GFR BUN/Creatinine Ratio Glucose POC Glucose 91 90 102 Calcium 04/20/19 04/20/19 12:11 17:57 WBC RBC Hgb Hct MCV MCH MCHC RDW Plt Count Lymph % (Auto) [place] % (Auto) Eos % (Auto) Baso % (Auto) Lymph # [place] # Eos # Baso # Seg Neutrophils % Seg Neutrophils # Sodium Potassium Chloride Carbon Dioxide Anion Gap BUN Creatinine Estimated GFR BUN/Creatinine Ratio Glucose POC Glucose 92 84 Calcium
--- NOTE | 2019-04-20 21:21 | Progress Note ---
Assessment and Plan Imp: 1. GI bleed 2. PUD 3. Ulcerative esophagitis 4. Acute blood loss anemia 5. Pancytopenia 6. Cachexia 7. Anasarca 8. Ascites 9. ESRD 10. Hypotension, better 11. UTI Rec: 1. PPI BID and Sucralfate per GI; f/u esophagus biopsy 2. Monitor H/H 3. Heme eval. re: pancytopenia 4. Volume optimization with HD; would work to improve nutrition as some of her anasarca is probably due to 3rd spacing in the setting of malnutrition; soft mechanical diet per ST recs 5. ABX per ID 6. SCDs 7. Hopeful transfer out of ICU soon Plan of care reviewed w/ sister, she understands/agrees CCt 31 minutes Subjective Date of service: 04/20/19 Principal diagnosis: GI bleed Interval history: No events. Having hypothermia today although glucose and BP are stable. She is alert, appropriate, wants to go home. O2 off of her face with sat of 99%. Paracentesis done today. Active Medications Acetaminophen (Tylenol) 650 mg PO Q4H PRN PRN Reason: Pain MILD(1-3)/Fever >100.5/[place] Albumin Human (Alburx 25% (Albumin)) 25 gm IV MARCELA PRN PRN Reason: Hypotension Albuterol (Proventil) 2.5 mg IH Q6HRT PRN PRN Reason: Shortness Of Breath Dextrose (D50w (25gm) Vial) 25 gm IV PRN PRN PRN Reason: Hypoglycemia Last Admin: 04/20/19 06:04 Dose: 25 gm Documented by: Epoetin Jean [place] (Procrit) 20,000 unit IV MARCELA PRN PRN Reason: hemodialysis Levofloxacin/Dextrose (Levaquin 500mg/100ml) 500 mg in 100 mls @ 100 mls/hr IV Q48HR ROSELINE Last Admin: 04/20/19 10:09 Dose: 100 mls/hr Documented by: Sodium Chloride (Nacl 0.9%) 100 mls @ 999 mls/hr IV MARCELA PRN PRN Reason: Hypotension Pantoprazole Sodium 80 mg/ (Sodium Chloride) 100 mls @ 10 mls/hr IV DIRECT ROSELINE Insulin Human Regular (Humulin R) 0 units SUB-Q ACHS ROSELINE; Protocol Last Admin: 04/20/19 18:02 Dose: Not Given Documented by: Ketoconazole (Nizoral) 1 applic TP DAILY [facility] Last Admin: 04/20/19 11:21 Dose: 1 applic Documented by: Midodrine (Proamatine) 5 mg PO MARCELA PRN PRN Reason: Hypotension Ondansetron HCl (Zofran) 4 mg IV Q8H PRN PRN Reason: Nausea And Vomiting Sodium Chloride (Sodium Chloride Flush Syringe 10 Ml) 10 ml IV BID [facility] Last Admin: 04/20/19 10:09 Dose: 10 ml Documented by: Sodium Chloride (Sodium Chloride Flush Syringe 10 Ml) 10 ml IV PRN PRN PRN Reason: LINE FLUSH Sucralfate (Carafate) 1 gm PO Q6HR [facility] Last Admin: 04/20/19 18:44 Dose: 1 gm Documented by: Objective Vital Signs - 12hr 04/20/19 04/20/19 04/20/19 09:30 09:45 10:00 Temperature Pulse Rate 82 86 87 Pulse Rate [ From Monitor] Respiratory 10 L 10 L 10 L Rate Blood Pressure 101/66 111/70 104/69 O2 Sat by Pulse 100 100 98 Oximetry O2 Sat by Pulse Oximetry [ Bilateral Throughout] 04/20/19 04/20/19 04/20/19 10:15 10:30 10:45 Temperature Pulse Rate 87 95 H 92 H Pulse Rate [ From Monitor] Respiratory 11 L 12 14 Rate Blood Pressure 115/70 121/80 114/75 O2 Sat by Pulse 99 100 100 Oximetry O2 Sat by Pulse Oximetry [ Bilateral Throughout] 04/20/19 04/20/19 04/20/19 11:00 11:15 11:30 Temperature Pulse Rate 93 H 94 H 89 Pulse Rate [ From Monitor] Respiratory 12 13 12 Rate Blood Pressure 120/76 110/86 110/86 O2 Sat by Pulse 100 94 100 Oximetry O2 Sat by Pulse Oximetry [ Bilateral Throughout] 04/20/19 04/20/19 04/20/19 11:45 12:00 12:15 Temperature 96.2 F L Pulse Rate 84 84 85 Pulse Rate [ 84 From Monitor] Respiratory 10 L 10 L 11 L Rate Blood Pressure 130/84 120/82 120/83 O2 Sat by Pulse 100 100 Oximetry O2 Sat by Pulse Oximetry [ Bilateral Throughout] 04/20/19 04/20/19 04/20/19 12:20 12:29 12:30 Temperature 97.8 F Pulse Rate 82 85 81 Pulse Rate [ From Monitor] Respiratory 13 10 L Rate Blood Pressure 119/81 120/83 123/82 O2 Sat by Pulse Oximetry O2 Sat by Pulse 100 Oximetry [ Bilateral Throughout] 04/20/19 04/20/19 04/20/19 12:45 12:57 13:00 Temperature Pulse Rate 84 83 83 Pulse Rate [ From Monitor] Respiratory 10 L 10 L Rate Blood Pressure 113/80 108/71 O2 Sat by Pulse 100 100 Oximetry O2 Sat by Pulse Oximetry [ Bilateral Throughout] 04/20/19 04/20/19 04/20/19 13:15 13:30 13:45 Temperature Pulse Rate 82 85 84 Pulse Rate [ From Monitor] Respiratory 10 L 11 L 12 Rate Blood Pressure 97/63 103/72 94/68 O2 Sat by Pulse 100 100 100 Oximetry O2 Sat by Pulse Oximetry [ Bilateral Throughout] 04/20/19 04/20/19 04/20/19 14:00 14:15 14:30 Temperature Pulse Rate 84 84 85 Pulse Rate [ From Monitor] Respiratory 10 L 11 L 11 L Rate Blood Pressure 98/64 99/71 97/64 O2 Sat by Pulse 100 100 Oximetry O2 Sat by Pulse Oximetry [ Bilateral Throughout] 04/20/19 04/20/19 04/20/19 14:45 15:00 15:01 Temperature Pulse Rate 87 85 94 H Pulse Rate [ From Monitor] Respiratory 13 15 Rate Blood Pressure 97/65 92/63 92/63 O2 Sat by Pulse 100 100 Oximetry O2 Sat by Pulse Oximetry [ Bilateral Throughout] 04/20/19 04/20/19 04/20/19 15:15 15:30 15:38 Temperature 97.8 F Pulse Rate 86 80 90 Pulse Rate [ From Monitor] Respiratory 12 11 L 10 L Rate Blood Pressure 103/67 103/67 130/88 O2 Sat by Pulse 100 Oximetry O2 Sat by Pulse 100 Oximetry [ Bilateral Throughout] 04/20/19 04/20/19 04/20/19 15:45 17:12 17:15 Temperature Pulse Rate 80 80 82 Pulse Rate [ 80 From Monitor] Respiratory 11 L 9 L 12 Rate Blood Pressure 125/84 125/84 117/78 O2 Sat by Pulse 100 100 Oximetry O2 Sat by Pulse Oximetry [ Bilateral Throughout] 04/20/19 04/20/19 04/20/19 17:30 17:45 18:00 Temperature Pulse Rate 84 84 82 Pulse Rate [ From Monitor] Respiratory 9 L 16 12 Rate Blood Pressure 125/84 129/75 122/72 O2 Sat by Pulse 98 100 100 Oximetry O2 Sat by Pulse Oximetry [ Bilateral Throughout] 04/20/19 04/20/19 04/20/19 18:15 18:30 18:45 Temperature Pulse Rate 84 83 82 Pulse Rate [ From Monitor] Respiratory 12 14 14 Rate Blood Pressure 126/78 107/68 116/71 O2 Sat by Pulse 98 99 98 Oximetry O2 Sat by Pulse Oximetry [ Bilateral Throughout] 04/20/19 04/20/19 04/20/19 19:00 19:15 19:25 Temperature Pulse Rate 83 79 82 Pulse Rate [ From Monitor] Respiratory 10 L 13 14 Rate Blood Pressure 121/76 121/76 O2 Sat by Pulse 99 99 99 Oximetry O2 Sat by Pulse Oximetry [ Bilateral Throughout] 04/20/19 04/20/19 04/20/19 19:31 19:45 20:00 Temperature Pulse Rate 79 78 82 Pulse Rate [ From Monitor] Respiratory 10 L 10 L 13 Rate Blood Pressure 109/67 109/67 120/80 O2 Sat by Pulse 98 98 99 Oximetry O2 Sat by Pulse Oximetry [ Bilateral Throughout] 04/20/19 04/20/19 04/20/19 20:06 20:15 20:31 Temperature Pulse Rate 78 81 Pulse Rate [ From Monitor] Respiratory 11 L 12 Rate Blood Pressure 120/80 122/74 O2 Sat by Pulse 100 99 99 Oximetry O2 Sat by Pulse Oximetry [ Bilateral Throughout] 04/20/19 04/20/19 20:45 21:00 Temperature Pulse Rate 81 82 Pulse Rate [ From Monitor] Respiratory 11 L 13 Rate Blood Pressure 122/74 118/85 O2 Sat by Pulse 100 100 Oximetry O2 Sat by Pulse Oximetry [ Bilateral Throughout] Constitutional: alert, other (cachectic appearing) Eyes: non-icteric Neck: supple Effort: normal Ascultation: Bilateral: diminished breath sounds (bases) Cardiovascular: regular rate and rhythm (no mrg) Gastrointestinal: normoactive bowel sounds, soft, non-distended, other (ascites, better after paracentesis) Integumentary: normal, other (did not examine back/sacrum) Extremities: no cyanosis, anasarca Neurologic: normal mental status, non-focal exam, pupils equal and round Psychiatric: mood appropriate, affect normal CBC and BMP: 04/20/19 04:45 04/20/19 04:45 ABG, PT/INR, D-dimer: ABG POC ABG pH 7.354 (7.35-7.45) 04/19/19 14:12 POC ABG pCO2 52.8 (35-45) H 04/19/19 14:12 POC ABG pO2 142 (80-105) H 04/19/19 14:12 POC ABG HCO3 29.4 (22-26 mml/L) 04/19/19 14:12 POC ABG Total CO2 31 (23-27mmol/L) 04/19/19 14:12 POC ABG O2 Sat 99 04/19/19 14:12 PT/INR, D-dimer PT 16.8 Sec. (12.2-14.9) H 04/17/19 21:53 INR 1.40 (0.87-1.13) H 04/17/19 21:53 Abnormal lab findings: Abnormal Labs 04/17/19 04/17/19 04/17/19 21:53 21:53 22:00 WBC 2.1 L RBC 1.62 L Hgb 4.5 L* Hct 13.7 L* RDW 16.2 H Plt Count 33 L Lymph % (Auto) Lymph # Seg Neutrophils % Seg Neuts % (Manual) 82 H Seg Neutrophils # Man 1.7 L Lymphocytes # (Manual) 0.3 L PT 16.8 H INR 1.40 H APTT 48.0 H POC ABG pH POC ABG pCO2 POC ABG pO2 Sodium Chloride BUN Creatinine Glucose POC Glucose Calcium AST ALT NT-Pro-B Natriuret Pep 72468 H Total Protein Albumin Urine WBC (Auto) Crossmatch 04/17/19 04/17/19 04/17/19 22:00 22:40 23:20 WBC RBC Hgb Hct RDW Plt Count Lymph % (Auto) Lymph # Seg Neutrophils % Seg Neuts % (Manual) Seg Neutrophils # Man Lymphocytes # (Manual) PT INR APTT POC ABG pH 7.336 L POC ABG pCO2 54.9 H POC ABG pO2 Sodium 134 L Chloride BUN 83 H Creatinine 3.2 H Glucose 102 H POC Glucose Calcium 7.0 L AST 165 H ALT 111 H NT-Pro-B Natriuret Pep Total Protein 4.5 L Albumin 2.0 L Urine WBC (Auto) > 182.0 H Crossmatch 04/17/19 04/18/19 04/18/19 23:41 12:13 20:27 WBC RBC Hgb 10.0 L D Hct 29.0 L D RDW Plt Count Lymph % (Auto) Lymph # Seg Neutrophils % Seg Neuts % (Manual) Seg Neutrophils # Man Lymphocytes # (Manual) PT INR APTT POC ABG pH POC ABG pCO2 POC ABG pO2 Sodium Chloride BUN Creatinine Glucose POC Glucose 127 H Calcium AST ALT NT-Pro-B Natriuret Pep Total Protein Albumin Urine WBC (Auto) Crossmatch See Detail 04/19/19 04/19/19 04/19/19 00:13 04:20 04:20 WBC 2.9 L RBC 3.29 L Hgb 9.9 L Hct 28.8 L RDW Plt Count 49 L Lymph % (Auto) 11.6 L Lymph # 0.3 L Seg Neutrophils % 85.5 H Seg Neuts % (Manual) Seg Neutrophils # Man Lymphocytes # (Manual) PT INR APTT POC ABG pH POC ABG pCO2 POC ABG pO2 Sodium 133 L Chloride 97.5 L BUN 90 H Creatinine 3.4 H Glucose 47 L POC Glucose 69 L Calcium 7.1 L AST ALT NT-Pro-B Natriuret Pep Total Protein Albumin Urine WBC (Auto) Crossmatch 04/19/19 04/19/19 04/19/19 05:46 06:48 10:19 WBC RBC Hgb Hct RDW Plt Count Lymph % (Auto) Lymph # Seg Neutrophils % Seg Neuts % (Manual) Seg Neutrophils # Man Lymphocytes # (Manual) PT INR APTT POC ABG pH POC ABG pCO2 POC ABG pO2 Sodium Chloride BUN Creatinine Glucose POC Glucose 48 L 127 H 63 L Calcium AST ALT NT-Pro-B Natriuret Pep Total Protein Albumin Urine WBC (Auto) Crossmatch 04/19/19 04/19/19 04/19/19 11:19 14:12 14:22 WBC RBC Hgb Hct RDW Plt Count Lymph % (Auto) Lymph # Seg Neutrophils % Seg Neuts % (Manual) Seg Neutrophils # Man Lymphocytes # (Manual) PT INR APTT POC ABG pH POC ABG pCO2 52.8 H POC ABG pO2 142 H Sodium Chloride BUN Creatinine Glucose POC Glucose 121 H 67 L Calcium AST ALT NT-Pro-B Natriuret Pep Total Protein Albumin Urine WBC (Auto) Crossmatch 04/19/19 04/19/19 04/20/19 15:38 22:03 04:11 WBC RBC Hgb Hct RDW Plt Count Lymph % (Auto) Lymph # Seg Neutrophils % Seg Neuts % (Manual) Seg Neutrophils # Man Lymphocytes # (Manual) PT INR APTT POC ABG pH POC ABG pCO2 POC ABG pO2 Sodium Chloride BUN Creatinine Glucose POC Glucose 139 H 60 L 62 L Calcium AST ALT NT-Pro-B Natriuret Pep Total Protein Albumin Urine WBC (Auto) Crossmatch 04/20/19 04/20/19 04/20/19 04:45 04:45 06:49 WBC 2.7 L RBC 3.10 L Hgb 9.2 L Hct 27.3 L RDW 15.5 H Plt Count 75 L Lymph % (Auto) Lymph # 0.4 L Seg Neutrophils % 79.1 H Seg Neuts % (Manual) Seg Neutrophils # Man Lymphocytes # (Manual) PT INR APTT POC ABG pH POC ABG pCO2 POC ABG pO2 Sodium Chloride BUN 96 H Creatinine 3.5 H Glucose 105 H POC Glucose 129 H Calcium 7.1 L AST ALT NT-Pro-B Natriuret Pep Total Protein Albumin Urine WBC (Auto) Crossmatch Chest x-ray: report reviewed, image reviewed
[2019-04-20] MEDS ORDERED: PROTONIX PO SCH (22:00)
[2019-04-21] MEDS: CARAFATE PO SCH ×3 (00:21→11:01)
[2019-04-21 07:17] LABS: Hematocrit 29.5 % (30.3-42.9); Hemoglobin 10.1 gm/dl (10.1-14.3); Mean Corpuscular HGB Conc 34 % (30-34); Mean Corpuscular Volume 88 fl (79-97); Platelet Count 43 K/mm3 (140-440); Red Blood Count 3.34 M/mm3 (3.65-5.03); Red Cell Distribution Width 15.5 % (13.2-15.2)
[2019-04-21 07:33] LABS: Calcium 6.6 mg/dL (8.4-10.2)
[2019-04-21] MEDS: HumuLIN R SUB-Q SCH ×4 (07:44→21:26)
--- NOTE | 2019-04-21 08:48 | Progress Note ---
Assessment and Plan Assessment: -ESRD on HD- MWF at [place] -CAD -hematemesis -anemia acute blood loss POA -peptic ulcer disease Plan: -continue HD as needed, s/p hd Tuesday, will plan for MWF if stable -appreciate cardiology and GI input -uf only if tolerated -will provide ESAs as indicated -serial H/H, needs prbcs prn -avoid nephrotoxins, renally dose all medications -strict Is/Os Subjective Date of service: 04/21/19 Principal diagnosis: GI bleed Interval history: resting in bed Objective - Exam Narrative Exam: General appearance: Present: severe distress, other (Pale) - EENT Eyes: Present: PERRL ENT: hearing intact, clear oral mucosa - Neck Neck: Present: supple, normal ROM - Respiratory Respiratory effort: normal Respiratory: bilateral: rales - Cardiovascular Heart Sounds: Present: S1 & S2. Absent: rub, click - Extremities Extremities: pulses symmetrical Extremity abnormal: edema Peripheral Pulses: within normal limits - Abdominal General gastrointestinal: Present: soft, non-tender, normal bowel sounds, other (ascites) Female genitourinary: Present: normal - Integumentary Integumentary: Present: clear, warm, dry - Musculoskeletal Musculoskeletal: gait normal, strength equal bilaterally - Psychiatric Psychiatric: no intact judgment & insight, cooperative - Neurologic Neurologic: CNII-XII intact, moves all extremities - Vital Signs Vital signs: Vital Signs - 12hr 04/20/19 04/20/19 04/20/19 20:45 21:00 21:15 Temperature Pulse Rate 81 82 84 Pulse Rate [ From Monitor] Pulse Rate [ Left Radial] Respiratory 11 L 13 12 Rate Blood Pressure 122/74 118/85 118/85 O2 Sat by Pulse 100 100 99 Oximetry 04/20/19 04/20/19 04/20/19 21:30 21:44 21:45 Temperature Pulse Rate 82 82 80 Pulse Rate [ From Monitor] Pulse Rate [ Left Radial] Respiratory 13 12 Rate Blood Pressure 110/86 110/86 O2 Sat by Pulse 100 100 Oximetry 04/20/19 04/20/19 04/20/19 22:00 22:05 22:07 Temperature 94.0 F L Pulse Rate 81 81 81 Pulse Rate [ 79 From Monitor] Pulse Rate [ 58 L Left Radial] Respiratory 14 12 12 Rate Blood Pressure 121/77 121/77 121/77 O2 Sat by Pulse 100 100 99 Oximetry 04/20/19 04/20/19 04/20/19 22:15 22:31 22:45 Temperature Pulse Rate 78 81 79 Pulse Rate [ From Monitor] Pulse Rate [ Left Radial] Respiratory 9 L 10 L 12 Rate Blood Pressure 121/77 121/77 121/77 O2 Sat by Pulse 99 98 99 Oximetry 04/20/19 04/20/19 04/20/19 23:00 23:15 23:31 Temperature Pulse Rate 77 79 79 Pulse Rate [ From Monitor] Pulse Rate [ Left Radial] Respiratory 13 8 L 11 L Rate Blood Pressure 127/84 127/84 127/84 O2 Sat by Pulse 99 99 99 Oximetry 04/20/19 04/21/19 04/21/19 23:45 00:00 00:15 Temperature Pulse Rate 78 80 74 Pulse Rate [ From Monitor] Pulse Rate [ Left Radial] Respiratory 9 L 7 L 9 L Rate Blood Pressure 127/84 125/86 125/86 O2 Sat by Pulse 99 99 99 Oximetry 04/21/19 04/21/19 04/21/19 00:25 00:27 00:31 Temperature 94 F L Pulse Rate 74 76 Pulse Rate [ From Monitor] Pulse Rate [ Left Radial] Respiratory 8 L Rate Blood Pressure 127/84 O2 Sat by Pulse 98 Oximetry 04/21/19 04/21/19 04/21/19 00:45 01:00 01:15 Temperature Pulse Rate 76 76 75 Pulse Rate [ From Monitor] Pulse Rate [ Left Radial] Respiratory 8 L 7 L 8 L Rate Blood Pressure 127/84 125/80 125/80 O2 Sat by Pulse 98 98 98 Oximetry 04/21/19 04/21/19 04/21/19 01:30 01:31 01:45 Temperature 95.5 F L Pulse Rate 76 76 Pulse Rate [ From Monitor] Pulse Rate [ Left Radial] Respiratory 8 L 8 L Rate Blood Pressure 125/80 125/80 O2 Sat by Pulse 98 99 Oximetry 04/21/19 04/21/19 04/21/19 02:00 02:15 02:31 Temperature Pulse Rate 77 76 75 Pulse Rate [ From Monitor] Pulse Rate [ Left Radial] Respiratory 8 L 8 L 8 L Rate Blood Pressure 126/83 126/83 126/83 O2 Sat by Pulse 99 99 99 Oximetry 04/21/19 04/21/19 04/21/19 02:40 02:45 03:00 Temperature Pulse Rate 76 76 79 Pulse Rate [ 79 From Monitor] Pulse Rate [ Left Radial] Respiratory 12 8 L 10 L Rate Blood Pressure 126/83 131/86 O2 Sat by Pulse 99 99 99 Oximetry 04/21/19 04/21/19 04/21/19 03:10 03:15 03:25 Temperature 95.5 F L 95.5 F L Pulse Rate 87 Pulse Rate [ From Monitor] Pulse Rate [ Left Radial] Respiratory 13 Rate Blood Pressure 131/86 O2 Sat by Pulse 99 Oximetry 04/21/19 08:31 Temperature Pulse Rate Pulse Rate [ From Monitor] Pulse Rate [ Left Radial] Respiratory Rate Blood Pressure O2 Sat by Pulse 100 Oximetry - Lab 04/21/19 06:40 04/21/19 06:40 Most recent lab results Calcium 6.6 mg/dL (8.4-10.2) L 04/21/19 06:40 Medications & Allergies - Medications Allergies/Adverse Reactions: Allergies guaifenesin [From Robitussin] Allergy (Verified 02/09/19 07:00) Hives Penicillins Allergy (Verified 02/09/19 07:00) Hives Home Medications: Home Medications Medication Instructions Recorded Confirmed Last Taken Type Acetaminophen [Acetaminophen TAB] 650 mg PO Q12HR PRN 02/09/19 04/18/19 04/05/19 History Polyethylene Glycol 3350 [Miralax 17 gm PO DAILY 02/09/19 04/18/19 04/05/19 History 3350] Albuterol Sulfate [Proair 2 puff IH Q6HR PRN 02/28/19 04/18/19 04/05/19 History Respiclick] Antifungal 1% CREAM 1 pack TP DAILY 02/28/19 04/18/19 04/05/19 History Calcium Acetate [Phoslo] 667 mg PO TID 02/28/19 04/18/19 04/05/19 History Ferrous Sulfate [Feosol 325 MG tab] 325 mg PO BID 02/28/19 04/18/19 04/05/19 History Folic Acid [Folvite] 1 mg PO DAILY 02/28/19 04/18/19 04/05/19 History Glucagon (Human Recomb) [Glucagen] 1 mg IM Q15MIN PRN 02/28/19 04/18/19 04/05/19 History Insulin Lispro [Humalog 100 100 unit SQ PRN PRN 02/28/19 04/18/19 04/05/19 History UNITS/ML Kwikpen] Levothyroxine [Synthroid] 150 mcg PO QAM 02/28/19 04/18/19 04/05/19 History PARoxetine HCl [PARoxetine] 20 mg PO HS 02/28/19 04/18/19 04/05/19 History Sennosides Tab [Senokot] 1 tab PO HS PRN 02/28/19 04/18/19 04/05/19 History Thiamine [Vitamin B-1] 100 mg PO DAILY 02/28/19 04/18/19 04/05/19 History risperiDONE [Risperdal] 2 mg PO DAILY 02/28/19 04/18/19 04/05/19 History Pantoprazole [Protonix TAB] 40 mg PO BID 60 Days tablet 03/06/19 04/18/19 04/05/19 Rx AtorvaSTATin 80 mg PO HS 04/18/19 04/18/19 Unknown History Levothyroxine 150 mcg PO DAILY 04/18/19 04/18/19 Unknown History Midodrine 10 mg PO 3XW 04/18/19 04/18/19 Unknown History Active Medications: Generic Name Dose Route Start Last Admin Trade Name Freq PRN Reason Stop Dose Admin Acetaminophen 650 mg 04/18/19 02:09 Tylenol PO Q4H PRN Pain MILD(1-3)/Fever >100.5/SEYMOUR Albumin Human 25 gm 04/20/19 10:09 Alburx 25% (Albumin) IV MARCELA PRN Hypotension Albuterol 2.5 mg 04/18/19 00:38 Proventil IH Q6HRT PRN Shortness Of Breath Dextrose 25 gm 04/19/19 14:22 04/20/19 06:04 D50w (25gm) Vial IV 25 gm PRN PRN Administration Hypoglycemia Epoetin Jean Carlos 20,000 unit 04/18/19 10:13 Procrit IV MARCELA PRN hemodialysis Levofloxacin/Dextrose 500 mg in 100 mls @ 100 mls/hr 04/18/19 10:00 04/20/19 10:09 Levaquin 500mg/100ml IV 100 mls/hr Q48HR ROSELINE Administration Sodium Chloride 100 mls @ 999 mls/hr 04/20/19 10:09 Nacl 0.9% IV MARCELA PRN Hypotension Pantoprazole Sodium 80 mg/ 100 mls @ 10 mls/hr 04/20/19 13:00 04/20/19 22:04 Sodium Chloride IV 8 mg/hr DIRECT ROSELINE 10 mls/hr Administration 8 MG/HR Insulin Human Regular 0 units 04/18/19 07:30 04/21/19 07:44 Humulin R SUB-Q Not Given ACHS ROSELINE Protocol Ketoconazole 1 applic 04/18/19 10:00 04/20/19 11:21 Nizoral TP 1 applic DAILY ROSELINE Administration Midodrine 5 mg 04/20/19 10:09 Proamatine PO MARCELA PRN Hypotension Ondansetron HCl 4 mg 04/18/19 02:09 Zofran IV Q8H PRN Nausea And Vomiting Sodium Chloride 10 ml 04/18/19 10:00 04/20/19 22:04 Sodium Chloride Flush Syringe 10 Ml IV 10 ml BID ROSELINE Administration Sodium Chloride 10 ml 04/18/19 02:09 Sodium Chloride Flush Syringe 10 Ml IV PRN PRN LINE FLUSH Sucralfate 1 gm 04/19/19 18:00 04/21/19 07:55 Carafate PO 1 gm Q6HR ROSELINE Administration
[2019-04-21 09:59] LABS: Anisocytosis 1+; Band Neutrophils # (Manual) 0.2 K/mm3; Basophils % (Manual) 0 % (0.0-1.8); Eosinophils % (Manual) 0 % (0.0-4.3); Total Cells Counted 100
[2019-04-21 10:00] LABS: Giant Platelets Rare; Platelet Estimate Consistent w Auto
[2019-04-21] MEDS: PROTONIX 80 MG in NACL 0.9% 100 ML IV SCH ×2 (11:01→21:43)
[2019-04-21] MEDS: NIZORAL TP SCH (11:03)
[2019-04-21] MEDS: SODIUM CHLORIDE FLUSH SYRINGE 10 ML IV SCH ×2 (11:03→21:44)
--- NOTE | 2019-04-21 22:30 | Progress Note ---
Assessment and Plan Assessment and plan: 58-year-old woman who is a resident of [facility] well-known to [facility]. History of end-stage renal disease on dialysis. Has been admitted multiple times for GI bleed due to peptic ulcer disease, history of multiple endoscopies. Who was brought to the hospital [facility] use she has not had dialysis since last . Seen at [facility] for one day for hematemesis and then discharged. Per the patient's daughter for some reason she did not receive dialysis at [facility] nor does she received dialysis at [facility]. She presents now with profound anemia, fluid overload, hypoxic respiratory failure, -Per family, she has not received dialysis since 6 days. -EGD 02/13/19 revealed large ulcer (4cm) on lesser curve; no visible vessel, mild gastritis, and small hiatal hernia (bx negative for H.pylori/malignancy) -s/p repeat EGD 03/01/19 that showed ulcerative esophagitis with adherent clot with underlying oozing of blood (clip x 1 with hemostasis), and large ulcer along lesser curvature as seen on prior endoscopy with necrosis appearance but no high risk bleeding lesions Acute blood loss anemia; most likely causes recurrent GI bleed. Transfused, and H&H is currently stable Acute upper GI bleed, likely due to peptic ulcer disease; PPI twice daily, patient is not actively bleeding. GI consult appreciated End-stage renal disease, missed dialysis and anasarca; potassium is normal, BUN elevated, patient is very fluid overloaded. Nephrology consult appreciated. Sepsis/UTI; ID consult, continue empiric antibiotics Hypothermia; patient is on perico hugger Ascetic fluid analysis was done and doesn't look like patient has SBP. Thrombodytopenia; transfused and plt this morning was 105 Hematology oncology consulted Acute hypoxic respiratory failure; due to fluid overload from missed dialysis - Pulmonary is following Hypotension; BP is on the low side of normal. Hypothermia; on perico hugger Acute metabolic encephalopathy - patient is still confused, will do CT head Type 2 diabetes; SSI Chronic COPD, hypothyroidism on Synthroid, DVT prophylaxis SCDs, avoid blood thinners in light of GI bleed. The high probability of a clinically significant, sudden or life threatening deterioration of the [Neuro, GI, hematology] system(s) required my full and direct attention, intervention and personal management. The aggregate critical care time was [35 minutes] minutes. This time is in addition to time spent performing reported procedures but includes the following: [x] Data Review and interpretation [x] Patient assessment and monitoring of vital signs [x] Documentation [x] Medication orders and management History Interval history: Patient was seen and evaluated during morning rounds Patient was alert and oriented but still she was hypothermic Hospitalist Physical - Physical exam Narrative exam: Not in cardiopulmonary distress. The patient appeared well nourished and normally developed. Vital signs as documented. Head exam is unremarkable. No scleral icterus . Neck is without jugular venous distension, thyromegaly, or carotid bruits. Lungs are clear to auscultation. Cardiac exam reveals regular rate and Rhythm. Abdominal exam reveals normal bowel sounds. Extremities are nonedematous and both femoral and pedal pulses are normal. [employer]: Alert and oriented. - Constitutional Vitals: Temp Pulse Resp BP Pulse Ox 97.4 F L 84 11 L 122/77 99 04/21/19 19:44 04/21/19 20:30 04/21/19 20:30 04/21/19 20:30 04/21/19 20:30 General appearance: Present: severe distress, other (Pale) Results - Labs CBC & Chem 7: 04/21/19 06:40 04/21/19 06:40 Labs: Laboratory Last Values WBC 2.6 K/mm3 (4.5-11.0) L 04/21/19 06:40 RBC 3.34 M/mm3 (3.65-5.03) L 04/21/19 06:40 Hgb 10.1 gm/dl (10.1-14.3) 04/21/19 06:40 Hct 29.5 % (30.3-42.9) L 04/21/19 06:40 MCV 88 fl (79-97) 04/21/19 06:40 MCH 30 pg (28-32) 04/21/19 06:40 MCHC 34 % (30-34) 04/21/19 06:40 RDW 15.5 % (13.2-15.2) H 04/21/19 06:40 Plt Count 43 K/mm3 (140-440) L 04/21/19 06:40 Lymph % (Auto) 15.1 % (13.4-35.0) 04/20/19 04:45 [place] % (Auto) 5.2 % (0.0-7.3) 04/20/19 04:45 Eos % (Auto) 0.0 % (0.0-4.3) 04/20/19 04:45 Baso % (Auto) 0.6 % (0.0-1.8) 04/20/19 04:45 Lymph # 0.4 K/mm3 (1.2-5.4) L 04/20/19 04:45 [place] # 0.1 K/mm3 (0.0-0.8) 04/20/19 04:45 Eos # 0.0 K/mm3 (0.0-0.4) 04/20/19 04:45 Baso # 0.0 K/mm3 (0.0-0.1) 04/20/19 04:45 Add Manual Diff Complete 04/21/19 06:40 Total Counted 100 04/21/19 06:40 Seg Neutrophils % 79.1 % (40.0-70.0) H 04/20/19 04:45 Seg Neuts % (Manual) 62.0 % (40.0-70.0) 04/21/19 06:40 Band Neutrophils % 7.0 % 04/21/19 06:40 Lymphocytes % (Manual) 27.0 % (13.4-35.0) 04/21/19 06:40 Reactive Lymphs % (Man) 1.0 % 04/21/19 06:40 Monocytes % (Manual) 3.0 % (0.0-7.3) 04/21/19 06:40 Eosinophils % (Manual) 0 % (0.0-4.3) 04/21/19 06:40 Basophils % (Manual) 0 % (0.0-1.8) 04/21/19 06:40 Metamyelocytes % 0 % 04/21/19 06:40 Myelocytes % 0 % 04/21/19 06:40 Promyelocytes % 0 % 04/21/19 06:40 Blast Cells % 0 % 04/21/19 06:40 Nucleated RBC % Not Reportable 04/21/19 06:40 Seg Neutrophils # 2.1 K/mm3 (1.8-7.7) 04/20/19 04:45 Seg Neutrophils # Man 1.6 K/mm3 (1.8-7.7) L 04/21/19 06:40 Band Neutrophils # 0.2 K/mm3 04/21/19 06:40 Lymphocytes # (Manual) 0.7 K/mm3 (1.2-5.4) L 04/21/19 06:40 Abs React Lymphs (Man) 0.0 K/mm3 04/21/19 06:40 Monocytes # (Manual) 0.1 K/mm3 (0.0-0.8) 04/21/19 06:40 Eosinophils # (Manual) 0.0 K/mm3 (0.0-0.4) 04/21/19 06:40 Basophils # (Manual) 0.0 K/mm3 (0.0-0.1) 04/21/19 06:40 Metamyelocytes # 0.0 K/mm3 04/21/19 06:40 Myelocytes # 0.0 K/mm3 04/21/19 06:40 Promyelocytes # 0.0 K/mm3 04/21/19 06:40 Blast Cells # 0.0 K/mm3 04/21/19 06:40 WBC Morphology Not Reportable 04/21/19 06:40 Hypersegmented Neuts Not Reportable 04/21/19 06:40 Hyposegmented Neuts Not Reportable 04/21/19 06:40 Hypogranular Neuts Not Reportable 04/21/19 06:40 Smudge Cells Not Reportable 04/21/19 06:40 Toxic Granulation Not Reportable 04/21/19 06:40 Toxic Vacuolation Not Reportable 04/21/19 06:40 Dohle Bodies Not Reportable 04/21/19 06:40 Pelger-Huet Anomaly Not Reportable 04/21/19 06:40 Marcellus Rods Not Reportable 04/21/19 06:40 Platelet Estimate Consistent w auto 04/21/19 06:40 Clumped Platelets Not Reportable 04/21/19 06:40 Plt Clumps, EDTA Not Reportable 04/21/19 06:40 Large Platelets Not Reportable 04/21/19 06:40 Giant Platelets Rare 04/21/19 06:40 Platelet Satelliting Not Reportable 04/21/19 06:40 Plt Morphology Comment Not Reportable 04/21/19 06:40 RBC Morphology Not Reportable 04/21/19 06:40 Dimorphic RBCs Not Reportable 04/21/19 06:40 Polychromasia Not Reportable 04/21/19 06:40 Hypochromasia Not Reportable 04/21/19 06:40 Poikilocytosis Not Reportable 04/21/19 06:40 Anisocytosis 1+ 04/21/19 06:40 Microcytosis Few 04/21/19 06:40 Macrocytosis Not Reportable 04/21/19 06:40 Spherocytes Not Reportable 04/21/19 06:40 Pappenheimer Bodies Not Reportable 04/21/19 06:40 Sickle Cells Not Reportable 04/21/19 06:40 Target Cells Not Reportable 04/21/19 06:40 Tear Drop Cells Not Reportable 04/21/19 06:40 Ovalocytes Not Reportable 04/21/19 06:40 Helmet Cells Not Reportable 04/21/19 06:40 [place] Bodies Not Reportable 04/21/19 06:40 [place] Rings Not Reportable 04/21/19 06:40 [place] Cells Not Reportable 04/21/19 06:40 Bite Cells Not Reportable 04/21/19 06:40 Crenated Cell Not Reportable 04/21/19 06:40 Elliptocytes Not Reportable 04/21/19 06:40 Acanthocytes (Spur) Not Reportable 04/21/19 06:40 Rouleaux Not Reportable 04/21/19 06:40 Hemoglobin C Crystals Not Reportable 04/21/19 06:40 Schistocytes Not Reportable 04/21/19 06:40 Malaria parasites Not Reportable 04/21/19 06:40 Michael Bodies Not Reportable 04/21/19 06:40 Hem Pathologist Commnt No 04/21/19 06:40 PT 16.8 Sec. (12.2-14.9) H 04/17/19 21:53 INR 1.40 (0.87-1.13) H 04/17/19 21:53 APTT 48.0 Sec. (24.2-36.6) H 04/17/19 21:53 POC ABG pH 7.354 (7.35-7.45) 04/19/19 14:12 POC ABG pCO2 52.8 (35-45) H 04/19/19 14:12 POC ABG pO2 142 (80-105) H 04/19/19 14:12 POC ABG HCO3 29.4 (22-26 mml/L) 04/19/19 14:12 POC ABG Total CO2 31 (23-27mmol/L) 04/19/19 14:12 POC ABG O2 Sat 99 04/19/19 14:12 POC ABG Base Excess 4 ((-2) - (+3)mmol/L) 04/19/19 14:12 FiO2 28 % 04/19/19 14:12 Sodium 136 mmol/L (137-145) L 04/21/19 06:40 Potassium 4.6 mmol/L (3.6-5.0) 04/21/19 06:40 Chloride 100.1 mmol/L (98-107) 04/21/19 06:40 Carbon Dioxide 25 mmol/L (22-30) 04/21/19 06:40 Anion Gap 16 mmol/L 04/21/19 06:40 BUN 71 mg/dL (7-17) H 04/21/19 06:40 Creatinine 2.9 mg/dL (0.7-1.2) H 04/21/19 06:40 Estimated GFR 20 ml/min 04/21/19 06:40 BUN/Creatinine Ratio 24 % 04/21/19 06:40 Glucose 78 mg/dL (65-100) 04/21/19 06:40 POC Glucose 142 (70-105) H 04/21/19 21:26 Lactic Acid 1.80 mmol/L (0.7-2.0) 04/18/19 00:18 Calcium 6.6 mg/dL (8.4-10.2) L 04/21/19 06:40 Total Bilirubin 0.30 mg/dL (0.1-1.2) 04/17/19 22:00 AST 165 units/L (5-40) H 04/17/19 22:00 ALT 111 units/L (7-56) H 04/17/19 22:00 Alkaline Phosphatase 85 units/L (35-129) 04/17/19 22:00 NT-Pro-B Natriuret Pep 66390 pg/mL (0-900) H 04/17/19 22:00 Total Protein 4.5 g/dL (6.3-8.2) L 04/17/19 22:00 Albumin 2.0 g/dL (3.9-5) L 04/17/19 22:00 Albumin/Globulin Ratio 0.8 % 04/17/19 22:00 Urine Color Yellow (Yellow) 04/17/19 22:40 Urine Turbidity Turbid (Clear) 04/17/19 22:40 Urine pH 5.0 (5.0-7.0) 04/17/19 22:40 Ur Specific [place] 1.014 (1.003-1.030) 04/17/19 22:40 Urine Protein 100 mg/dl mg/dL (Negative) 04/17/19 22:40 Urine Glucose (UA) Neg mg/dL (Negative) 04/17/19 22:40 Urine Ketones Neg mg/dL (Negative) 04/17/19 22:40 Urine Blood Lg (Negative) 04/17/19 22:40 Urine Nitrite Neg (Negative) 04/17/19 22:40 Urine Bilirubin Neg (Negative) 04/17/19 22:40 Urine Urobilinogen < 2.0 mg/dL (<2.0) 04/17/19 22:40 Ur Leukocyte Esterase Lg (Negative) 04/17/19 22:40 Urine WBC (Auto) > 182.0 /HPF (0.0-6.0) H 04/17/19 22:40 Urine RBC (Auto) > 182.0 /HPF (0.0-6.0) 04/17/19 22:40 Urine Bacteria (Auto) 4+ /HPF (Negative) 04/17/19 22:40 Urine Mucus Few /HPF 04/17/19 22:40 Urine Yeast (Budding) 3+ /HPF 04/17/19 22:40 Fluid Type Ascitic 04/18/19 11:50 Fluid Color Yellow 04/18/19 11:50 Fluid Appearance Hazy 04/18/19 11:50 Fluid WBC 4 /mm3 04/18/19 11:50 Fluid RBC 165 /mm3 04/18/19 11:50 Fluid Seg Neutrophils 17.0 % 04/18/19 11:50 Fluid Lymphocytes 37.0 % 04/18/19 11:50 Fluid Reactive Lymphs 0 % 04/18/19 11:50 Fluid Monocytes 46.0 % 04/18/19 11:50 Fluid Eosinophils 0 % 04/18/19 11:50 Fluid Basophils 0 % 04/18/19 11:50 Fluid Comment See add'l 04/18/19 11:50 Blood Type B POSITIVE 04/17/19 23:41 Antibody Screen Negative 04/17/19 23:41 Crossmatch See Detail 04/17/19 23:41 Active Medications - Current Medications Current Medications: Generic Name Dose Route Start Last Admin Trade Name Freq PRN Reason Stop Dose Admin Acetaminophen 650 mg 04/18/19 02:09 Tylenol PO Q4H PRN Pain MILD(1-3)/Fever >100.5/SEYMUOR Albumin Human 25 gm 04/20/19 10:09 Alburx 25% (Albumin) IV MARCELA PRN Hypotension Albuterol 2.5 mg 04/18/19 00:38 Proventil IH Q6HRT PRN Shortness Of Breath Dextrose 25 gm 04/19/19 14:22 04/20/19 06:04 D50w (25gm) Vial IV 25 gm PRN PRN Administration Hypoglycemia Epoetin Jean Carlos 20,000 unit 04/18/19 10:13 Procrit IV MARCELA PRN hemodialysis Levofloxacin/Dextrose 500 mg in 100 mls @ 100 mls/hr 04/18/19 10:00 04/20/19 10:09 Levaquin 500mg/100ml IV 100 mls/hr Q48HR ROSELINE Administration Sodium Chloride 100 mls @ 999 mls/hr 04/20/19 10:09 Nacl 0.9% IV MARCELA PRN Hypotension Pantoprazole Sodium 80 mg/ 100 mls @ 10 mls/hr 04/20/19 13:00 04/21/19 21:43 Sodium Chloride IV 8 mg/hr DIRECT ROSELINE 10 mls/hr Administration 8 MG/HR Insulin Human Regular 0 units 04/18/19 07:30 04/21/19 21:26 Humulin R SUB-Q Not Given ACHS ROSELINE Protocol Ketoconazole 1 applic 04/18/19 10:00 04/21/19 11:03 Nizoral TP Not Given DAILY ROSELINE Midodrine 5 mg 04/20/19 10:09 Proamatine PO MARCELA PRN Hypotension Ondansetron HCl 4 mg 04/18/19 02:09 Zofran IV Q8H PRN Nausea And Vomiting Sodium Chloride 10 ml 04/18/19 10:00 04/21/19 21:44 Sodium Chloride Flush Syringe 10 Ml IV 10 ml BID ROSELINE Administration Sodium Chloride 10 ml 04/18/19 02:09 Sodium Chloride Flush Syringe 10 Ml IV PRN PRN LINE FLUSH Sucralfate 1 gm 04/19/19 18:00 04/21/19 11:01 Carafate PO 1 gm Q6HR ROSELINE Administration
--- NOTE | 2019-04-21 23:37 | Progress Note ---
Assessment and Plan Imp: 1. GI bleed 2. PUD 3. Ulcerative esophagitis 4. Acute blood loss anemia 5. Pancytopenia 6. Cachexia 7. Anasarca 8. Ascites 9. ESRD 10. Hypotension, better 11. UTI Rec: 1. Change Protonix from drip to BID and Sucralfate per GI; f/u esophagus biopsy 2. Monitor H/H 3. Heme eval. re: pancytopenia 4. Volume optimization with HD; would work to improve nutrition as some of her anasarca is probably due to 3rd spacing in the setting of malnutrition; soft mechanical diet per ST recs 5. ABX per ID 6. SCDs -> patient adamantly refusing per nurse; not a candidate for chemical PPx due to GI bleed 7. Hopeful transfer out of ICU soon No family present; complex decision-making Subjective Date of service: 04/21/19 Principal diagnosis: GI bleed Interval history: No events. Having hypothermia today although glucose and BP are stable. She is alert, appropriate, wants to go home. O2 off of her face with sat of 99%. Active Medications Acetaminophen (Tylenol) 650 mg PO Q4H PRN PRN Reason: Pain MILD(1-3)/Fever >100.5/[facility] Albumin Human (Alburx 25% (Albumin)) 25 gm IV MARCELA PRN PRN Reason: Hypotension Albuterol (Proventil) 2.5 mg IH Q6HRT PRN PRN Reason: Shortness Of Breath Dextrose (D50w (25gm) Vial) 25 gm IV PRN PRN PRN Reason: Hypoglycemia Last Admin: 04/20/19 06:04 Dose: 25 gm Documented by: Epoetin Jean Carlos (Procrit) 20,000 unit IV MARCELA PRN PRN Reason: hemodialysis Levofloxacin/Dextrose (Levaquin 500mg/100ml) 500 mg in 100 mls @ 100 mls/hr IV Q48HR ROSELINE Last Admin: 04/20/19 10:09 Dose: 100 mls/hr Documented by: Sodium Chloride (Nacl 0.9%) 100 mls @ 999 mls/hr IV MARCELA PRN PRN Reason: Hypotension Pantoprazole Sodium 80 mg/ (Sodium Chloride) 100 mls @ 10 mls/hr IV DIRECT ROSELINE Last Admin: 04/21/19 21:43 Dose: 8 mg/hr, 10 mls/hr Documented by: Insulin Human Regular (Humulin R) 0 units SUB-Q ACHS [facility]; Protocol Last Admin: 04/21/19 21:26 Dose: Not Given Documented by: Ketoconazole (Nizoral) 1 applic TP DAILY [facility] Last Admin: 04/21/19 11:03 Dose: Not Given Documented by: Midodrine (Proamatine) 5 mg PO MARCELA PRN PRN Reason: Hypotension Ondansetron HCl (Zofran) 4 mg IV Q8H PRN PRN Reason: Nausea And Vomiting Sodium Chloride (Sodium Chloride Flush Syringe 10 Ml) 10 ml IV BID [facility] Last Admin: 04/21/19 21:44 Dose: 10 ml Documented by: Sodium Chloride (Sodium Chloride Flush Syringe 10 Ml) 10 ml IV PRN PRN PRN Reason: LINE FLUSH Sucralfate (Carafate) 1 gm PO Q6HR [facility] Last Admin: 04/21/19 11:01 Dose: 1 gm Documented by: Objective Vital Signs - 12hr 04/21/19 04/21/19 04/21/19 11:46 12:00 12:16 Temperature 95 F L Pulse Rate 81 85 82 Pulse Rate [ 83 From Monitor] Pulse Rate [ Left Radial] Pulse Rate [ 83 Right Radial] Respiratory 12 11 L 10 L Rate Blood Pressure 120/81 120/76 120/76 O2 Sat by Pulse 99 100 99 Oximetry 04/21/19 04/21/19 04/21/19 12:30 12:46 13:00 Temperature Pulse Rate 80 81 84 Pulse Rate [ From Monitor] Pulse Rate [ Left Radial] Pulse Rate [ Right Radial] Respiratory 11 L 12 12 Rate Blood Pressure 120/76 120/81 120/81 O2 Sat by Pulse 99 99 96 Oximetry 04/21/19 04/21/19 04/21/19 13:16 13:30 13:46 Temperature Pulse Rate 82 79 80 Pulse Rate [ From Monitor] Pulse Rate [ Left Radial] Pulse Rate [ Right Radial] Respiratory 11 L 11 L 12 Rate Blood Pressure 99/73 99/73 99/73 O2 Sat by Pulse 99 98 98 Oximetry 04/21/19 04/21/19 04/21/19 14:00 14:16 14:30 Temperature Pulse Rate 81 81 83 Pulse Rate [ From Monitor] Pulse Rate [ Left Radial] Pulse Rate [ Right Radial] Respiratory 9 L 11 L 11 L Rate Blood Pressure 99/73 99/73 99/73 O2 Sat by Pulse 98 99 99 Oximetry 04/21/19 04/21/19 04/21/19 14:46 15:00 15:16 Temperature Pulse Rate 81 84 84 Pulse Rate [ From Monitor] Pulse Rate [ Left Radial] Pulse Rate [ Right Radial] Respiratory 10 L 11 L 11 L Rate Blood Pressure 99/73 99/73 102/62 O2 Sat by Pulse 98 87 98 Oximetry 04/21/19 04/21/19 04/21/19 15:30 15:46 16:00 Temperature 95.2 F L Pulse Rate 85 89 89 Pulse Rate [ 88 From Monitor] Pulse Rate [ 80 Left Radial] Pulse Rate [ 88 Right Radial] Respiratory 12 12 9 L Rate Blood Pressure 102/62 102/62 100/65 O2 Sat by Pulse 99 99 98 Oximetry 04/21/19 04/21/19 04/21/19 16:16 16:30 16:46 Temperature Pulse Rate 86 83 85 Pulse Rate [ From Monitor] Pulse Rate [ Left Radial] Pulse Rate [ Right Radial] Respiratory 10 L 11 L 9 L Rate Blood Pressure 100/65 100/65 100/65 O2 Sat by Pulse 98 98 99 Oximetry 04/21/19 04/21/19 04/21/19 17:00 17:16 17:30 Temperature Pulse Rate 88 91 H 83 Pulse Rate [ From Monitor] Pulse Rate [ Left Radial] Pulse Rate [ Right Radial] Respiratory 13 12 10 L Rate Blood Pressure 97/59 100/65 100/65 O2 Sat by Pulse 98 100 99 Oximetry 04/21/19 04/21/19 04/21/19 17:46 18:00 18:16 Temperature Pulse Rate 86 85 88 Pulse Rate [ From Monitor] Pulse Rate [ Left Radial] Pulse Rate [ Right Radial] Respiratory 13 11 L 13 Rate Blood Pressure 97/59 100/68 100/68 O2 Sat by Pulse 99 98 100 Oximetry 04/21/19 04/21/19 04/21/19 18:30 18:46 19:00 Temperature Pulse Rate 85 85 85 Pulse Rate [ From Monitor] Pulse Rate [ Left Radial] Pulse Rate [ Right Radial] Respiratory 11 L 12 16 Rate Blood Pressure 100/68 100/68 107/72 O2 Sat by Pulse 98 99 97 Oximetry 10/12/19 10/12/19 10/12/19 19:15 19:16 19:30 Temperature Pulse Rate 84 87 89 Pulse Rate [ 86 From Monitor] Pulse Rate [ Left Radial] Pulse Rate [ 86 Right Radial] Respiratory 18 12 13 Rate Blood Pressure 107/72 107/72 O2 Sat by Pulse 100 100 98 Oximetry 04/21/19 04/21/19 04/21/19 19:44 19:46 19:52 Temperature 97.4 F L Pulse Rate 84 Pulse Rate [ From Monitor] Pulse Rate [ Left Radial] Pulse Rate [ Right Radial] Respiratory 11 L Rate Blood Pressure 107/72 O2 Sat by Pulse 98 99 Oximetry 04/21/19 04/21/19 04/21/19 20:00 20:15 20:16 Temperature Pulse Rate 84 84 84 Pulse Rate [ 86 From Monitor] Pulse Rate [ Left Radial] Pulse Rate [ 86 Right Radial] Respiratory 11 L 18 10 L Rate Blood Pressure 122/77 122/77 O2 Sat by Pulse 98 100 99 Oximetry 04/21/19 04/21/19 04/21/19 20:30 20:46 21:00 Temperature Pulse Rate 84 87 87 Pulse Rate [ From Monitor] Pulse Rate [ Left Radial] Pulse Rate [ Right Radial] Respiratory 11 L 13 12 Rate Blood Pressure 122/77 122/77 122/77 O2 Sat by Pulse 99 100 100 Oximetry 04/21/19 04/21/19 04/21/19 21:16 21:30 21:46 Temperature Pulse Rate 87 83 83 Pulse Rate [ From Monitor] Pulse Rate [ Left Radial] Pulse Rate [ Right Radial] Respiratory 12 11 L 11 L Rate Blood Pressure 122/77 122/77 122/77 O2 Sat by Pulse 100 100 99 Oximetry 04/21/19 04/21/19 04/21/19 22:00 22:16 22:30 Temperature Pulse Rate 86 86 83 Pulse Rate [ From Monitor] Pulse Rate [ Left Radial] Pulse Rate [ Right Radial] Respiratory 13 12 11 L Rate Blood Pressure 106/76 106/83 106/83 O2 Sat by Pulse 96 98 99 Oximetry 04/21/19 04/21/19 04/21/19 22:46 23:00 23:16 Temperature Pulse Rate 87 87 84 Pulse Rate [ From Monitor] Pulse Rate [ Left Radial] Pulse Rate [ Right Radial] Respiratory 14 12 12 Rate Blood Pressure 106/83 106/83 120/81 O2 Sat by Pulse 99 79 L 99 Oximetry Constitutional: alert, other (cachectic appearing) Eyes: non-icteric Neck: supple Effort: normal Ascultation: Bilateral: diminished breath sounds (bases) Cardiovascular: regular rate and rhythm (no mrg) Gastrointestinal: normoactive bowel sounds, soft, non-distended, other (ascites, better after paracentesis) Integumentary: normal, other (did not examine back/sacrum) Extremities: no cyanosis, anasarca Neurologic: normal mental status, non-focal exam, pupils equal and round Psychiatric: mood appropriate, affect normal CBC and BMP: 04/21/19 06:40 04/21/19 06:40 ABG, PT/INR, D-dimer: ABG POC ABG pH 7.354 (7.35-7.45) 04/19/19 14:12 POC ABG pCO2 52.8 (35-45) H 04/19/19 14:12 POC ABG pO2 142 (80-105) H 04/19/19 14:12 POC ABG HCO3 29.4 (22-26 mml/L) 04/19/19 14:12 POC ABG Total CO2 31 (23-27mmol/L) 04/19/19 14:12 POC ABG O2 Sat 99 04/19/19 14:12 PT/INR, D-dimer PT 16.8 Sec. (12.2-14.9) H 04/17/19 21:53 INR 1.40 (0.87-1.13) H 04/17/19 21:53 Abnormal lab findings: Abnormal Labs 04/17/19 04/17/19 04/17/19 21:53 21:53 22:00 WBC 2.1 L RBC 1.62 L Hgb 4.5 L* Hct 13.7 L* RDW 16.2 H Plt Count 33 L Lymph % (Auto) Lymph # Seg Neutrophils % Seg Neuts % (Manual) 82 H Seg Neutrophils # Man 1.7 L Lymphocytes # (Manual) 0.3 L PT 16.8 H INR 1.40 H APTT 48.0 H POC ABG pH POC ABG pCO2 POC ABG pO2 Sodium Chloride BUN Creatinine Glucose POC Glucose Calcium AST ALT NT-Pro-B Natriuret Pep 06798 H Total Protein Albumin Urine WBC (Auto) Crossmatch 04/17/19 04/17/19 04/17/19 22:00 22:40 23:20 WBC RBC Hgb Hct RDW Plt Count Lymph % (Auto) Lymph # Seg Neutrophils % Seg Neuts % (Manual) Seg Neutrophils # Man Lymphocytes # (Manual) PT INR APTT POC ABG pH 7.336 L POC ABG pCO2 54.9 H POC ABG pO2 Sodium 134 L Chloride BUN 83 H Creatinine 3.2 H Glucose 102 H POC Glucose Calcium 7.0 L AST 165 H ALT 111 H NT-Pro-B Natriuret Pep Total Protein 4.5 L Albumin 2.0 L Urine WBC (Auto) > 182.0 H Crossmatch 04/17/19 04/18/19 04/18/19 23:41 12:13 20:27 WBC RBC Hgb 10.0 L D Hct 29.0 L D RDW Plt Count Lymph % (Auto) Lymph # Seg Neutrophils % Seg Neuts % (Manual) Seg Neutrophils # Man Lymphocytes # (Manual) PT INR APTT POC ABG pH POC ABG pCO2 POC ABG pO2 Sodium Chloride BUN Creatinine Glucose POC Glucose 127 H Calcium AST ALT NT-Pro-B Natriuret Pep Total Protein Albumin Urine WBC (Auto) Crossmatch See Detail 04/19/19 04/19/19 04/19/19 00:13 04:20 04:20 WBC 2.9 L RBC 3.29 L Hgb 9.9 L Hct 28.8 L RDW Plt Count 49 L Lymph % (Auto) 11.6 L Lymph # 0.3 L Seg Neutrophils % 85.5 H Seg Neuts % (Manual) Seg Neutrophils # Man Lymphocytes # (Manual) PT INR APTT POC ABG pH POC ABG pCO2 POC ABG pO2 Sodium 133 L Chloride 97.5 L BUN 90 H Creatinine 3.4 H Glucose 47 L POC Glucose 69 L Calcium 7.1 L AST ALT NT-Pro-B Natriuret Pep Total Protein Albumin Urine WBC (Auto) Crossmatch 04/19/19 04/19/19 04/19/19 05:46 06:48 10:19 WBC RBC Hgb Hct RDW Plt Count Lymph % (Auto) Lymph # Seg Neutrophils % Seg Neuts % (Manual) Seg Neutrophils # Man Lymphocytes # (Manual) PT INR APTT POC ABG pH POC ABG pCO2 POC ABG pO2 Sodium Chloride BUN Creatinine Glucose POC Glucose 48 L 127 H 63 L Calcium AST ALT NT-Pro-B Natriuret Pep Total Protein Albumin Urine WBC (Auto) Crossmatch 04/19/19 04/19/19 04/19/19 11: 14:12 14:22 WBC RBC Hgb Hct RDW Plt Count Lymph % (Auto) Lymph # Seg Neutrophils % Seg Neuts % (Manual) Seg Neutrophils # Man Lymphocytes # (Manual) PT INR APTT POC ABG pH POC ABG pCO2 52.8 H POC ABG pO2 142 H Sodium Chloride BUN Creatinine Glucose POC Glucose 121 H 67 L Calcium AST ALT NT-Pro-B Natriuret Pep Total Protein Albumin Urine WBC (Auto) Crossmatch 04/19/19 04/19/19 04/20/19 15:38 22:03 04:11 WBC RBC Hgb Hct RDW Plt Count Lymph % (Auto) Lymph # Seg Neutrophils % Seg Neuts % (Manual) Seg Neutrophils # Man Lymphocytes # (Manual) PT INR APTT POC ABG pH POC ABG pCO2 POC ABG pO2 Sodium Chloride BUN Creatinine Glucose POC Glucose 139 H 60 L 62 L Calcium AST ALT NT-Pro-B Natriuret Pep Total Protein Albumin Urine WBC (Auto) Crossmatch 04/20/19 04/20/19 04/20/19 04:45 04:45 06:49 WBC 2.7 L RBC 3.10 L Hgb 9.2 L Hct 27.3 L RDW 15.5 H Plt Count 75 L Lymph % (Auto) Lymph # 0.4 L Seg Neutrophils % 79.1 H Seg Neuts % (Manual) Seg Neutrophils # Man Lymphocytes # (Manual) PT INR APTT POC ABG pH POC ABG pCO2 POC ABG pO2 Sodium Chloride BUN 96 H Creatinine 3.5 H Glucose 105 H POC Glucose 129 H Calcium 7.1 L AST ALT NT-Pro-B Natriuret Pep Total Protein Albumin Urine WBC (Auto) Crossmatch 04/20/19 04/20/19 04/21/19 14:38 21:56 06:40 WBC 2.6 L RBC 3.34 L Hgb Hct 29.5 L RDW 15.5 H Plt Count 43 L Lymph % (Auto) Lymph # Seg Neutrophils % Seg Neuts % (Manual) Seg Neutrophils # Man 1.6 L Lymphocytes # (Manual) 0.7 L PT INR APTT POC ABG pH POC ABG pCO2 POC ABG pO2 Sodium Chloride BUN Creatinine Glucose POC Glucose 130 H 118 H Calcium AST ALT NT-Pro-B Natriuret Pep Total Protein Albumin Urine WBC (Auto) Crossmatch 04/21/19 04/21/19 06:40 21:26 WBC RBC Hgb Hct RDW Plt Count Lymph % (Auto) Lymph # Seg Neutrophils % Seg Neuts % (Manual) Seg Neutrophils # Man Lymphocytes # (Manual) PT INR APTT POC ABG pH POC ABG pCO2 POC ABG pO2 Sodium 136 L Chloride BUN 71 H Creatinine 2.9 H Glucose POC Glucose 142 H Calcium 6.6 L AST ALT NT-Pro-B Natriuret Pep Total Protein Albumin Urine WBC (Auto) Crossmatch Chest x-ray: report reviewed, image reviewed
[2019-04-22] MEDS: CARAFATE PO SCH ×5 (01:00→18:35)
--- NOTE | 2019-04-22 02:38 | Consultation ---
REFERRING PHYSICIAN: Dr. Gallardo REASON FOR CONSULTATION: Cytopenia. HISTORY OF PRESENT ILLNESS: I saw the patient, a 58-year-old female who is a resident of [facility]. She has end-stage renal disease and is on dialysis. History of gastrointestinal bleed due to peptic ulcer, status post multiple endoscopy, was admitted because of hematemesis. The patient also has history of dementia. REVIEW OF SYSTEMS: Not reliable. Most of the information comes from medical records. The patient was due for dialysis on Tuesday, however, the patient did not go over the weekend and then she went to [facility] for hematemesis, was discharged on Tuesday. When she came to the hospital, she was confused and short of breath. She was sent to [facility] where she was found to be anemic, transfusion support was given. She was also short of breath. At this time, the patient is in ICU complaining of feeling cold. PAST MEDICAL HISTORY: As above, CVA, ESRD, CHF, hepatitis C, diabetes, hypothyroidism, hypertension, dementia and mention of bipolar. PAST SURGICAL HISTORY: Not available, the patient has had EGDs. FAMILY HISTORY: Unknown. SOCIAL HISTORY: longterm resident. No history of tobacco or alcohol usage. ALLERGIES: PENICILLIN and GUAIFENESIN. HOME MEDICATIONS: Not available. PRESENT MEDICATIONS: Include albumin, Procrit, insulin. PHYSICAL EXAMINATION: VITAL SIGNS: Temperature 94, pulse 79, respirations 13, BP ____. HEENT: Pallor present, no icterus. HEART: S1, S2. LUNGS: Clear to auscultation anteriorly. ABDOMEN: Soft. EXTREMITIES: Moving extremities. NEUROLOGIC: The patient is confused. LABORATORY DATA: White cells 2.7, hemoglobin 9.2, MCV 88, platelets 75. On 04/17/2019, hemoglobin was 4.5. Potassium 4.8, creatinine 3.5, calcium 7.1. RADIOLOGY: CT head was done in the recent past. CT abdomen and pelvis was done on 04/11/2019. This shows massive ascites, pleural effusion, hiatal hernia. ASSESSMENT AND PLAN: 1. Anemia, history of gastrointestinal bleed, seen by GI team. Transfusion support as needed. 2. History of multiple peptic ulcers. 3. History of cerebrovascular accident. 4. History of end-stage renal disease, on dialysis. 5. History of congestive heart failure. 6. History of hepatitis C. 7. History of diabetes. 8. History of hypothyroidism. 9. History of hypertension. 10. History of dementia. 11. The patient also has thrombocytopenia. This may be secondary to consumption. Her main issue appears to be bleeding. She is being followed by the GI team. The patient has undergone biopsies in the past. This showed inflammation. The patient also has leukopenia. B12 was normal in February. Folate was normal. Serum iron was normal. Ferritin will be looked into. JOB# [id number] NM/NTS
[2019-04-22] MEDS: HumuLIN R SUB-Q SCH ×4 (07:30→22:16)
[2019-04-22] MEDS: LEVAQUIN 500MG/100ML 500 MG/100 ML BAG IV SCH (09:51)
[2019-04-22] MEDS: PROTONIX IV SCH ×2 (09:52→22:16)
[2019-04-22] MEDS: SODIUM CHLORIDE FLUSH SYRINGE 10 ML IV SCH ×2 (09:53→22:16)
[2019-04-22] MEDS ORDERED: NACL 0.9% 100 ML IV PRN (09:59)
--- NOTE | 2019-04-22 09:59 | Progress Note ---
Assessment and Plan Assessment: -ESRD on HD- MWF at [place] -CAD -hematemesis -anemia acute blood loss POA -peptic ulcer disease Plan: -continue HD as needed, s/p hd Tuesday, will plan for hd in AM if stable -appreciate cardiology and GI input -uf only if tolerated -will provide ESAs as indicated -serial H/H, needs prbcs prn -avoid nephrotoxins, renally dose all medications -strict Is/Os Subjective Date of service: 04/22/19 Principal diagnosis: GI bleed Interval history: resting in bed Objective - Exam Narrative Exam: General appearance: Present: severe distress, other (Pale) - EENT Eyes: Present: PERRL ENT: hearing intact, clear oral mucosa - Neck Neck: Present: supple, normal ROM - Respiratory Respiratory effort: normal Respiratory: bilateral: rales - Cardiovascular Heart Sounds: Present: S1 & S2. Absent: rub, click - Extremities Extremities: pulses symmetrical Extremity abnormal: edema Peripheral Pulses: within normal limits - Abdominal General gastrointestinal: Present: soft, non-tender, normal bowel sounds, other (ascites) Female genitourinary: Present: normal - Integumentary Integumentary: Present: clear, warm, dry - Musculoskeletal Musculoskeletal: gait normal, strength equal bilaterally - Psychiatric Psychiatric: no intact judgment & insight, cooperative - Neurologic Neurologic: CNII-XII intact, moves all extremities - Vital Signs Vital signs: Vital Signs - 12hr 04/21/19 04/21/19 04/21/19 22:00 22:15 22:16 Temperature Pulse Rate 86 84 86 Pulse Rate [ 86 From Monitor] Pulse Rate [ 86 Right Radial] Respiratory 13 18 12 Rate Blood Pressure 106/76 106/83 O2 Sat by Pulse 96 100 98 Oximetry 04/21/19 04/21/19 04/21/19 22:30 22:46 23:00 Temperature Pulse Rate 83 87 87 Pulse Rate [ From Monitor] Pulse Rate [ Right Radial] Respiratory 11 L 14 12 Rate Blood Pressure 106/83 106/83 106/83 O2 Sat by Pulse 99 99 79 L Oximetry 04/21/19 04/21/19 04/21/19 23:16 23:18 23:30 Temperature Pulse Rate 84 85 83 Pulse Rate [ From Monitor] Pulse Rate [ Right Radial] Respiratory 12 12 11 L Rate Blood Pressure 120/81 120/81 120/81 O2 Sat by Pulse 99 100 99 Oximetry 04/21/19 04/21/19 04/22/19 23:37 23:46 00:00 Temperature 97.5 F L Pulse Rate 85 83 Pulse Rate [ From Monitor] Pulse Rate [ Right Radial] Respiratory 12 13 Rate Blood Pressure 120/81 115/77 O2 Sat by Pulse 97 98 Oximetry 04/22/19 04/22/19 04/22/19 00:16 00:29 00:30 Temperature Pulse Rate 82 86 Pulse Rate [ 88 From Monitor] Pulse Rate [ 86 Right Radial] Respiratory 11 L 18 12 Rate Blood Pressure 115/77 115/77 O2 Sat by Pulse 98 100 98 Oximetry 04/22/19 04/22/19 04/22/19 00:46 01:00 01:16 Temperature Pulse Rate 86 84 87 Pulse Rate [ From Monitor] Pulse Rate [ Right Radial] Respiratory 12 10 L 10 L Rate Blood Pressure 115/77 111/78 111/78 O2 Sat by Pulse 100 98 99 Oximetry 04/22/19 04/22/19 04/22/19 01:30 01:46 02:00 Temperature Pulse Rate 85 92 H 87 Pulse Rate [ From Monitor] Pulse Rate [ Right Radial] Respiratory 13 14 13 Rate Blood Pressure 111/78 111/78 121/82 O2 Sat by Pulse 99 97 97 Oximetry 04/22/19 04/22/19 04/22/19 02:16 02:30 02:46 Temperature Pulse Rate 85 88 88 Pulse Rate [ From Monitor] Pulse Rate [ Right Radial] Respiratory 12 13 11 L Rate Blood Pressure 121/82 121/82 121/82 O2 Sat by Pulse 100 100 100 Oximetry 04/22/19 04/22/19 04/22/19 03:00 03:16 03:22 Temperature 97.4 F L Pulse Rate 88 83 Pulse Rate [ From Monitor] Pulse Rate [ Right Radial] Respiratory 12 10 L Rate Blood Pressure 106/77 106/77 O2 Sat by Pulse 100 100 Oximetry 04/22/19 04/22/19 04/22/19 03:30 03:46 04:00 Temperature Pulse Rate 84 81 86 Pulse Rate [ From Monitor] Pulse Rate [ Right Radial] Respiratory 10 L 11 L 10 L Rate Blood Pressure 106/77 106/77 106/77 O2 Sat by Pulse 100 98 99 Oximetry 04/22/19 04/22/19 04/22/19 04:10 04:16 04:30 Temperature Pulse Rate 84 83 82 Pulse Rate [ 88 From Monitor] Pulse Rate [ 86 Right Radial] Respiratory 18 12 11 L Rate Blood Pressure 106/69 106/69 O2 Sat by Pulse 100 100 100 Oximetry 04/22/19 04/22/19 04/22/19 04:46 05:00 05:14 Temperature Pulse Rate 82 82 82 Pulse Rate [ From Monitor] Pulse Rate [ Right Radial] Respiratory 10 L 10 L Rate Blood Pressure 106/69 107/75 O2 Sat by Pulse 100 100 100 Oximetry 04/22/19 04/22/19 04/22/19 05:16 05:30 05:46 Temperature Pulse Rate 83 83 80 Pulse Rate [ From Monitor] Pulse Rate [ Right Radial] Respiratory 10 L 10 L 9 L Rate Blood Pressure 107/75 107/75 107/75 O2 Sat by Pulse 100 100 100 Oximetry 04/22/19 04/22/19 04/22/19 06:00 06:16 06:30 Temperature Pulse Rate 84 81 81 Pulse Rate [ From Monitor] Pulse Rate [ Right Radial] Respiratory 9 L 9 L 10 L Rate Blood Pressure 117/73 117/73 117/73 O2 Sat by Pulse 99 100 100 Oximetry 04/22/19 04/22/19 04/22/19 06:46 07:00 07:16 Temperature Pulse Rate 80 83 84 Pulse Rate [ From Monitor] Pulse Rate [ Right Radial] Respiratory 9 L 12 11 L Rate Blood Pressure 117/73 121/78 121/78 O2 Sat by Pulse 99 99 100 Oximetry 04/22/19 04/22/19 04/22/19 07:30 07:46 07:53 Temperature Pulse Rate 83 86 Pulse Rate [ From Monitor] Pulse Rate [ Right Radial] Respiratory 11 L 11 L Rate Blood Pressure 121/78 121/78 O2 Sat by Pulse 100 99 99 Oximetry 04/22/19 04/22/19 04/22/19 08:00 08:16 08:30 Temperature 97.3 F L Pulse Rate 88 85 85 Pulse Rate [ 83 From Monitor] Pulse Rate [ 83 Right Radial] Respiratory 12 10 L 12 Rate Blood Pressure 118/79 118/79 118/79 O2 Sat by Pulse 83 L 100 100 Oximetry 04/22/19 04/22/19 04/22/19 08:45 09:00 09:09 Temperature Pulse Rate 83 85 83 Pulse Rate [ From Monitor] Pulse Rate [ Right Radial] Respiratory 9 L 11 L Rate Blood Pressure 114/82 O2 Sat by Pulse 100 100 Oximetry - Lab 04/21/19 06:40 04/21/19 06:40 Most recent lab results Calcium 6.6 mg/dL (8.4-10.2) L 04/21/19 06:40 Medications & Allergies - Medications Allergies/Adverse Reactions: Allergies guaifenesin [From Robitussin] Allergy (Verified 02/09/19 07:00) Hives Penicillins Allergy (Verified 02/09/19 07:00) Hives Home Medications: Home Medications Medication Instructions Recorded Confirmed Last Taken Type Acetaminophen [Acetaminophen TAB] 650 mg PO Q12HR PRN 02/09/19 04/18/19 04/05/19 History Polyethylene Glycol 3350 [Miralax 17 gm PO DAILY 02/09/19 04/18/19 04/05/19 History 3350] Albuterol Sulfate [Proair 2 puff IH Q6HR PRN 02/28/19 04/18/19 04/05/19 History Respiclick] Antifungal 1% CREAM 1 pack TP DAILY 02/28/19 04/18/19 04/05/19 History Calcium Acetate [Phoslo] 667 mg PO TID 02/28/19 04/18/19 04/05/19 History Ferrous Sulfate [Feosol 325 MG tab] 325 mg PO BID 02/28/19 04/18/19 04/05/19 History Folic Acid [Folvite] 1 mg PO DAILY 02/28/19 04/18/19 04/05/19 History Glucagon (Human Recomb) [Glucagen] 1 mg IM Q15MIN PRN 02/28/19 04/18/19 04/05/19 History Insulin Lispro [Humalog 100 100 unit SQ PRN PRN 02/28/19 04/18/19 04/05/19 History UNITS/ML Kwikpen] Levothyroxine [Synthroid] 150 mcg PO QAM 02/28/19 04/18/19 04/05/19 History PARoxetine HCl [PARoxetine] 20 mg PO HS 02/28/19 04/18/19 04/05/19 History Sennosides Tab [Senokot] 1 tab PO HS PRN 02/28/19 04/18/19 04/05/19 History Thiamine [Vitamin B-1] 100 mg PO DAILY 02/28/19 04/18/19 04/05/19 History risperiDONE [Risperdal] 2 mg PO DAILY 02/28/19 04/18/19 04/05/19 History Pantoprazole [Protonix TAB] 40 mg PO BID 60 Days tablet 03/06/19 04/18/19 04/05/19 Rx AtorvaSTATin 80 mg PO HS 04/18/19 04/18/19 Unknown History Levothyroxine 150 mcg PO DAILY 04/18/19 04/18/19 Unknown History Midodrine 10 mg PO 3XW 04/18/19 04/18/19 Unknown History Active Medications: Generic Name Dose Route Start Last Admin Trade Name Freq PRN Reason Stop Dose Admin Acetaminophen 650 mg 04/18/19 02:09 Tylenol PO Q4H PRN Pain MILD(1-3)/Fever >100.5/SEYMOUR Albumin Human 25 gm 04/20/19 10:09 Alburx 25% (Albumin) IV MARCELA PRN Hypotension Albuterol 2.5 mg 04/18/19 00:38 Proventil IH Q6HRT PRN Shortness Of Breath Dextrose 25 gm 04/19/19 14:22 04/20/19 06:04 D50w (25gm) Vial IV 25 gm PRN PRN Administration Hypoglycemia Epoetin Jean Carlos 20,000 unit 04/18/19 10:13 Procrit IV MARCELA PRN hemodialysis Levofloxacin/Dextrose 500 mg in 100 mls @ 100 mls/hr 04/18/19 10:00 04/22/19 09:51 Levaquin 500mg/100ml IV 100 mls/hr Q48HR ROSELINE Administration Sodium Chloride 100 mls @ 999 mls/hr 04/20/19 10:09 Nacl 0.9% IV MARCELA PRN Hypotension Insulin Human Regular 0 units 04/18/19 07:30 04/22/19 07:30 Humulin R SUB-Q Not Given ACHS [facility] Protocol Ketoconazole 1 applic 04/18/19 10:00 04/21/19 11:03 Nizoral TP Not Given DAILY [facility] Midodrine 5 mg 04/20/19 10:09 Proamatine PO MARCELA PRN Hypotension Ondansetron HCl 4 mg 04/18/19 02:09 Zofran IV Q8H PRN Nausea And Vomiting Pantoprazole Sodium 40 mg 04/22/19 10:00 04/22/19 09:52 Protonix IV 40 mg BID ROSELINE Administration Sodium Chloride 10 ml 04/18/19 10:00 04/22/19 09:53 Sodium Chloride Flush Syringe 10 Ml IV 10 ml BID ROSELINE Administration Sodium Chloride 10 ml 04/18/19 02:09 Sodium Chloride Flush Syringe 10 Ml IV PRN PRN LINE FLUSH Sucralfate 1 gm 04/19/19 18:00 04/22/19 06:10 Carafate PO Not Given Q6HR ROSELINE
[2019-04-22] MEDS: NIZORAL TP SCH (10:30)
--- NOTE | 2019-04-22 11:32 | Progress Note ---
Assessment and Plan Cultures: Blood culture 04/17/2019 no growth today. urine culture 04/19/2019 - Jennifer Assessment: 58 y/o female with history of recurrent GI, ESRD on HD, CHF, CVA, chronic anemia, diabetes, schizophrenia, ascites (secondary to poor nutrition/ESRD, no evidence of liver disease), and recent multiple admissions for recurrent upper GI bleed admitted on 04/17/2019 due to AMS and SOB: 1) Sepsis +/- severe hypovolemia due to bleed: present on admission with hypothermia, hypotension, source ? UTI. Blood culture 04/17/2019 no growth. no evidence of infectious process. Last day of empiric levofloxacin today. 2) CAUTI ? murphy present. Urine culture only growing Jennifer. 3) Severe anemia from GI Bleed 4) Recurrrent GI bleed: she is s/p empiric embolization of L gastric artery 02/10/2019. EGD 02/13/19 revealed large ulcer (4cm) on lesser curve; no visible vessel, mild gastritis, and small hiatal hernia (bx negative for H.pylori/malignancy) s/p repeat EGD 03/01/19 that showed ulcerative esophagitis with adherent clot with underlying oozing of blood (clip x 1 with hemostasis), and large ulcer along lesser curvature as seen on prior endoscopy with necrosis appearance but no high risk bleeding lesions. She has a negative colonoscopy at [facility] per pt report 01/2019. 5) ESRD on HD 6) Chronic ascitis: No evidence of SBP on ascitic fluid. Recent CT abd shows massive ascitis, bilateral pleural effusions. 7) Pancytopenia: anemia due to GI bleed but unclear etiology of neutropenia and thrombocytopenia. Hematology consulted. 8) Candiduria - rarely represent true pathogen, would not treat. Recommendations: last dose of levofloxacin today, then STOP Jaimee Tinsley MD, FACP [facility] C: [phone] O: [phone] F: [phone] Subjective Date of service: 04/22/19 Principal diagnosis: GI bleed Interval history: No fever, denies any complaints. Resting comfortably in bed. Wondering when she will be discharged. No shortness of breath. Tolerating abx. Objective - Exam Narrative Exam: Physical Exam: Constitutional: Alert, cooperative. No acute distress Head, Ears, Nose: Normocephalic, atraumatic. External ears, nose normal Eyes: Conjunctivae/corneas clear. No icterus. No ptosis. Neck: Supple, no meningeal signs Cardiovascular: S1, S2 normal. Respiratory: Good air entry, clear to auscultation bilaterally GI: Soft, non-tender; bowel sounds normal. No peritoneal signs Musculoskeletal: No pedal edema, no cyanosis. HD cath + c/d/i Skin: No rash or abscess Hem/Lymphatic: No palpable cervical or supraclavicular nodes. No lymphangitis Psych: Mood ok. Affect normal Neurological: Awake, alert, oriented. No gross abnormality - Constitutional Vitals: Vital Signs Temp Pulse Resp BP Pulse Ox 97.3 F L 83 11 L 114/82 100 04/22/19 08:00 04/22/19 09:09 04/22/19 09:00 04/22/19 09:00 04/22/19 09:00 Temperature -Last 24 Hours Temperature 97.3 F Temperature 97.3 F Temperature 97.4 F Temperature 97.5 F Temperature 97.4 F Temperature 95.2 F Temperature 95 F - Labs CBC & Chem 7: 04/21/19 06:40 04/21/19 06:40 Labs: Abnormal lab results 04/21/19 04/21/19 04/22/19 Range/Units 17:44 21:26 01:59 POC Glucose 109 H 142 H 121 H (70-105)
--- NOTE | 2019-04-22 14:56 | Progress Note ---
Assessment and Plan Acute blood loss anemia; most likely causes recurrent GI bleed. Transfused, and H&H is currently stable Acute upper GI bleed, likely due to peptic ulcer disease; PPI twice daily, patient is not actively bleeding. GI consult appreciated End-stage renal disease, missed dialysis and anasarca; potassium is normal, BUN elevated, patient is very fluid overloaded. Nephrology consult appreciated. Sepsis/UTI ?; ID consulted, being treated as sepsis but No clear source of infection, presented with hypovolumia and Hypothermia; patient still on perico hugger, BP at low 90s Ascetic fluid analysis was done and doesn't look like patient has SBP. blood cx negative, Urine grew melody will complete abx empirically with levaquin per ID Thrombodytopenia; s/p platelet transfusion , Hematology oncology consulted Acute hypoxic respiratory failure; due to fluid overload from missed dialysis - Resolved, Pulmonary is following Hypotension; BP is on the low side of normal. Hypothermia; on perico hugger Acute metabolic encephalopathy - possible has underlying dementia - patient is still confused, CT head w/o any acute finding Type 2 diabetes; SSI Chronic COPD, nebs as needed hypothyroidism on Synthroid, DVT prophylaxis SCDs, avoid blood thinners in light of GI bleed. Transfer to [facility] Brief History 58-year-old woman who is a resident of [facility] well-known to [facility]. History of end-stage renal disease on dialysis. Has been admitted multiple times for GI bleed due to peptic ulcer disease, history of multiple endoscopies. Who was brought to the hospital because she has not had dialysis since last . Seen at [facility] for one day for hematemesis and then discharged. Per the patient's daughter for some reason she did not receive dialysis at [facility] nor does she received dialysis at [facility]. She presents now with profound anemia, fluid overload, hypoxic respiratory failure, -Per family, she has not received dialysis since 6 days. -EGD 02/13/19 revealed large ulcer (4cm) on lesser curve; no visible vessel, mild gastritis, and small hiatal hernia (bx negative for H.pylori/malignancy) -s/p repeat EGD 03/01/19 that showed ulcerative esophagitis with adherent clot with underlying oozing of blood (clip x 1 with hemostasis), and large ulcer along lesser curvature as seen on prior endoscopy with necrosis appearance but no high risk bleeding lesions Hospitalist Physical Not in cardiopulmonary distress. The patient appeared well nourished and normally developed. Vital signs as documented. Head exam is unremarkable. No scleral icterus . Neck is without jugular venous distension, thyromegaly, or carotid bruits. Lungs are clear to auscultation. Cardiac exam reveals regular rate and Rhythm. Abdominal exam reveals normal bowel sounds. Extremities are nonedematous and both femoral and pedal pulses are normal. 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: Alert and oriented to person Subjective Date of service: 04/22/19 Principal diagnosis: GI bleed Interval history: Patient seen and examined remained Blood pressure low 90s Remained on warming blanket Patient can answer precaution and moves all extremities No active bleeding episode, continued to have dark watery stool Objective - Constitutional Vitals: Vital Signs - 12hr 04/22/19 04/22/19 04/22/19 03:00 03:16 03:22 Temperature 97.4 F L Pulse Rate 88 83 Pulse Rate [ From Monitor] Pulse Rate [ Right Radial] Respiratory 12 10 L Rate Blood Pressure 106/77 106/77 O2 Sat by Pulse 100 100 Oximetry 04/22/19 04/22/19 04/22/19 03:30 03:46 04:00 Temperature Pulse Rate 84 81 86 Pulse Rate [ From Monitor] Pulse Rate [ Right Radial] Respiratory 10 L 11 L 10 L Rate Blood Pressure 106/77 106/77 106/77 O2 Sat by Pulse 100 98 99 Oximetry 04/22/19 04/22/19 04/22/19 04:10 04:16 04:30 Temperature Pulse Rate 84 83 82 Pulse Rate [ 88 From Monitor] Pulse Rate [ 86 Right Radial] Respiratory 18 12 11 L Rate Blood Pressure 106/69 106/69 O2 Sat by Pulse 100 100 100 Oximetry 04/22/19 04/22/19 04/22/19 04:46 05:00 05:14 Temperature Pulse Rate 82 82 82 Pulse Rate [ From Monitor] Pulse Rate [ Right Radial] Respiratory 10 L 10 L Rate Blood Pressure 106/69 107/75 O2 Sat by Pulse 100 100 100 Oximetry 04/22/19 04/22/19 04/22/19 05:16 05:30 05:46 Temperature Pulse Rate 83 83 80 Pulse Rate [ From Monitor] Pulse Rate [ Right Radial] Respiratory 10 L 10 L 9 L Rate Blood Pressure 107/75 107/75 107/75 O2 Sat by Pulse 100 100 100 Oximetry 04/22/19 04/22/19 04/22/19 06:00 06:16 06:30 Temperature Pulse Rate 84 81 81 Pulse Rate [ From Monitor] Pulse Rate [ Right Radial] Respiratory 9 L 9 L 10 L Rate Blood Pressure 117/73 117/73 117/73 O2 Sat by Pulse 99 100 100 Oximetry 04/22/19 04/22/19 04/22/19 06:46 07:00 07:16 Temperature Pulse Rate 80 83 84 Pulse Rate [ From Monitor] Pulse Rate [ Right Radial] Respiratory 9 L 12 11 L Rate Blood Pressure 117/73 121/78 121/78 O2 Sat by Pulse 99 99 100 Oximetry 04/22/19 04/22/19 04/22/19 07:30 07:46 07:53 Temperature Pulse Rate 83 86 Pulse Rate [ From Monitor] Pulse Rate [ Right Radial] Respiratory 11 L 11 L Rate Blood Pressure 121/78 121/78 O2 Sat by Pulse 100 99 99 Oximetry 04/22/19 04/22/19 04/22/19 08:00 08:16 08:30 Temperature 97.3 F L Pulse Rate 88 85 85 Pulse Rate [ 83 From Monitor] Pulse Rate [ 83 Right Radial] Respiratory 12 10 L 12 Rate Blood Pressure 118/79 118/79 118/79 O2 Sat by Pulse 83 L 100 100 Oximetry 04/22/19 04/22/19 04/22/19 08:45 09:00 09:09 Temperature Pulse Rate 83 85 83 Pulse Rate [ From Monitor] Pulse Rate [ Right Radial] Respiratory 9 L 11 L Rate Blood Pressure 114/82 O2 Sat by Pulse 100 100 Oximetry 04/22/19 04/22/19 04/22/19 09:15 09:31 09:45 Temperature Pulse Rate 86 84 89 Pulse Rate [ From Monitor] Pulse Rate [ Right Radial] Respiratory 11 L 10 L 12 Rate Blood Pressure 114/82 114/82 114/82 O2 Sat by Pulse 100 100 100 Oximetry 04/22/19 04/22/19 04/22/19 10:00 10:15 10:31 Temperature Pulse Rate 85 84 85 Pulse Rate [ From Monitor] Pulse Rate [ Right Radial] Respiratory 11 L 11 L 13 Rate Blood Pressure 111/84 111/84 114/82 O2 Sat by Pulse 100 100 Oximetry 04/22/19 04/22/19 04/22/19 10:45 11:01 11:15 Temperature Pulse Rate 86 87 86 Pulse Rate [ From Monitor] Pulse Rate [ Right Radial] Respiratory 10 L 11 L 12 Rate Blood Pressure 114/82 90/58 90/58 O2 Sat by Pulse 100 100 100 Oximetry 04/22/19 04/22/19 04/22/19 11:31 12:00 12:01 Temperature 95.8 F L Pulse Rate 86 87 Pulse Rate [ From Monitor] Pulse Rate [ Right Radial] Respiratory 11 L 12 Rate Blood Pressure 90/58 90/58 O2 Sat by Pulse 100 100 Oximetry 04/22/19 04/22/19 13:00 14:00 Temperature Pulse Rate 86 89 Pulse Rate [ From Monitor] Pulse Rate [ Right Radial] Respiratory 13 13 Rate Blood Pressure 95/56 106/67 O2 Sat by Pulse 100 Oximetry - Labs CBC & Chem 7: 04/23/19 09:52 04/23/19 09:52 Labs: Abnormal lab results 04/21/19 04/21/19 04/22/19 Range/Units 17:44 21:26 01:59 POC Glucose 109 H 142 H 121 H (70-105)
--- NOTE | 2019-04-22 20:05 | Progress Note ---
Assessment and Plan Imp: 1. GI bleed 2. PUD 3. Ulcerative esophagitis 4. Acute blood loss anemia 5. Pancytopenia 6. Cachexia 7. Anasarca 8. Ascites 9. ESRD 10. Hypotension, better 11. UTI Rec: 1. Changed Protonix from drip to BID and Sucralfate per GI; f/u esophagus biopsy 2. Monitor H/H 3. Heme eval. re: pancytopenia 4. Volume optimization with HD; would work to improve nutrition as some of her anasarca is probably due to 3rd spacing in the setting of malnutrition; soft mechanical diet per ST recs 5. ABX per ID 6. SCDs -> patient adamantly refusing per nurse; not a candidate for chemical PPx due to GI bleed 7. Pulm-rojas stable Plan of care reviewed with mother/daughter, they understand/agree Subjective Date of service: 04/22/19 Principal diagnosis: GI bleed Interval history: No events. She is alert, appropriate, wants to go home. RA sats normal. Active Medications Acetaminophen (Tylenol) 650 mg PO Q4H PRN PRN Reason: Pain MILD(1-3)/Fever >100.5/[facility] Albumin Human (Alburx 25% (Albumin)) 25 gm IV MARCELA PRN PRN Reason: Hypotension Albuterol (Proventil) 2.5 mg IH Q6HRT PRN PRN Reason: Shortness Of Breath Dextrose (D50w (25gm) Vial) 25 gm IV PRN PRN PRN Reason: Hypoglycemia Last Admin: 04/20/19 06:04 Dose: 25 gm Documented by: Epoetin Jean Carlos (Procrit) 20,000 unit IV MARCELA PRN PRN Reason: hemodialysis Levofloxacin/Dextrose (Levaquin 500mg/100ml) 500 mg in 100 mls @ 100 mls/hr IV Q48HR ROSELINE Last Admin: 04/22/19 09:51 Dose: 100 mls/hr Documented by: Sodium Chloride (Nacl 0.9%) 100 mls @ 999 mls/hr IV MARCELA PRN PRN Reason: Hypotension Insulin Human Regular (Humulin R) 0 units SUB-Q ACHS ROSELINE; Protocol Last Admin: 04/22/19 16:30 Dose: Not Given Documented by: Ketoconazole (Nizoral) 1 applic TP DAILY ROSELINE Last Admin: 04/22/19 10:30 Dose: 1 applic Documented by: Midodrine (Proamatine) 5 mg PO MARCELA PRN PRN Reason: Hypotension Ondansetron HCl (Zofran) 4 mg IV Q8H PRN PRN Reason: Nausea And Vomiting Pantoprazole Sodium (Protonix) 40 mg IV BID [facility] Last Admin: 04/22/19 09:52 Dose: 40 mg Documented by: Sodium Chloride (Sodium Chloride Flush Syringe 10 Ml) 10 ml IV BID [facility] Last Admin: 04/22/19 09:53 Dose: 10 ml Documented by: Sodium Chloride (Sodium Chloride Flush Syringe 10 Ml) 10 ml IV PRN PRN PRN Reason: LINE FLUSH Sucralfate (Carafate) 1 gm PO Q6HR [facility] Last Admin: 04/22/19 18:35 Dose: 1 gm Documented by: Objective Vital Signs - 12hr 04/22/19 04/22/19 04/22/19 08:16 08:30 08:45 Temperature Pulse Rate 85 85 83 Pulse Rate [ From Monitor] Respiratory 10 L 12 9 L Rate Blood Pressure 118/79 118/79 O2 Sat by Pulse 100 100 100 Oximetry 04/22/19 04/22/19 04/22/19 09:00 09:09 09:15 Temperature Pulse Rate 85 83 86 Pulse Rate [ From Monitor] Respiratory 11 L 11 L Rate Blood Pressure 114/82 114/82 O2 Sat by Pulse 100 100 Oximetry 04/22/19 04/22/19 04/22/19 09:31 09:45 10:00 Temperature Pulse Rate 84 89 85 Pulse Rate [ From Monitor] Respiratory 10 L 12 11 L Rate Blood Pressure 114/82 114/82 111/84 O2 Sat by Pulse 100 100 Oximetry 04/22/19 04/22/19 04/22/19 10:15 10:31 10:45 Temperature Pulse Rate 84 85 86 Pulse Rate [ From Monitor] Respiratory 11 L 13 10 L Rate Blood Pressure 111/84 114/82 114/82 O2 Sat by Pulse 100 100 100 Oximetry 04/22/19 04/22/19 04/22/19 11:01 11:15 11:31 Temperature Pulse Rate 87 86 86 Pulse Rate [ From Monitor] Respiratory 11 L 12 11 L Rate Blood Pressure 90/58 90/58 90/58 O2 Sat by Pulse 100 100 100 Oximetry 10/04/22/19 04/22/19 12:00 12:01 13:00 Temperature 95.8 F L Pulse Rate 86 87 86 Pulse Rate [ 87 From Monitor] Respiratory 15 12 13 Rate Blood Pressure 90/58 95/56 O2 Sat by Pulse 100 100 100 Oximetry 04/22/19 04/22/19 04/22/19 14:00 15:01 16:00 Temperature 98.1 F Pulse Rate 89 86 90 Pulse Rate [ 90 From Monitor] Respiratory 13 9 L 13 Rate Blood Pressure 106/67 96/58 109/68 O2 Sat by Pulse 98 98 Oximetry 04/22/19 04/22/19 17:00 18:00 Temperature Pulse Rate 95 H 101 H Pulse Rate [ From Monitor] Respiratory 10 L 15 Rate Blood Pressure 107/69 92/59 O2 Sat by Pulse 99 98 Oximetry Constitutional: alert, other (cachectic appearing) Eyes: non-icteric Neck: supple Effort: normal Ascultation: Bilateral: diminished breath sounds (bases) Cardiovascular: regular rate and rhythm (no mrg) Gastrointestinal: normoactive bowel sounds, soft, non-distended, other (ascites, better after paracentesis) Integumentary: normal, other (did not examine back/sacrum) Extremities: no cyanosis, anasarca Neurologic: normal mental status, non-focal exam, pupils equal and round Psychiatric: mood appropriate, affect normal CBC and BMP: 04/21/19 06:40 04/21/19 06:40 ABG, PT/INR, D-dimer: ABG POC ABG pH 7.354 (7.35-7.45) 04/19/19 14:12 POC ABG pCO2 52.8 (35-45) H 04/19/19 14:12 POC ABG pO2 142 (80-105) H 04/19/19 14:12 POC ABG HCO3 29.4 (22-26 mml/L) 04/19/19 14:12 POC ABG Total CO2 31 (23-27mmol/L) 04/19/19 14:12 POC ABG O2 Sat 99 04/19/19 14:12 PT/INR, D-dimer PT 16.8 Sec. (12.2-14.9) H 04/17/19 21:53 INR 1.40 (0.87-1.13) H 04/17/19 21:53 Abnormal lab findings: Abnormal Labs 04/17/19 04/17/19 04/17/19 21:53 21:53 22:00 WBC 2.1 L RBC 1.62 L Hgb 4.5 L* Hct 13.7 L* RDW 16.2 H Plt Count 33 L Lymph % (Auto) Lymph # Seg Neutrophils % Seg Neuts % (Manual) 82 H Seg Neutrophils # Man 1.7 L Lymphocytes # (Manual) 0.3 L PT 16.8 H INR 1.40 H APTT 48.0 H POC ABG pH POC ABG pCO2 POC ABG pO2 Sodium Chloride BUN Creatinine Glucose POC Glucose Calcium AST ALT NT-Pro-B Natriuret Pep 08676 H Total Protein Albumin Urine WBC (Auto) Crossmatch 04/17/19 04/17/19 04/17/19 22:00 22:40 23:20 WBC RBC Hgb Hct RDW Plt Count Lymph % (Auto) Lymph # Seg Neutrophils % Seg Neuts % (Manual) Seg Neutrophils # Man Lymphocytes # (Manual) PT INR APTT POC ABG pH 7.336 L POC ABG pCO2 54.9 H POC ABG pO2 Sodium 134 L Chloride BUN 83 H Creatinine 3.2 H Glucose 102 H POC Glucose Calcium 7.0 L AST 165 H ALT 111 H NT-Pro-B Natriuret Pep Total Protein 4.5 L Albumin 2.0 L Urine WBC (Auto) > 182.0 H Crossmatch 04/17/19 04/18/19 04/18/19 23:41 12:13 20:27 WBC RBC Hgb 10.0 L D Hct 29.0 L D RDW Plt Count Lymph % (Auto) Lymph # Seg Neutrophils % Seg Neuts % (Manual) Seg Neutrophils # Man Lymphocytes # (Manual) PT INR APTT POC ABG pH POC ABG pCO2 POC ABG pO2 Sodium Chloride BUN Creatinine Glucose POC Glucose 127 H Calcium AST ALT NT-Pro-B Natriuret Pep Total Protein Albumin Urine WBC (Auto) Crossmatch See Detail 04/19/19 04/19/19 04/19/19 00:13 04:20 04:20 WBC 2.9 L RBC 3.29 L Hgb 9.9 L Hct 28.8 L RDW Plt Count 49 L Lymph % (Auto) 11.6 L Lymph # 0.3 L Seg Neutrophils % 85.5 H Seg Neuts % (Manual) Seg Neutrophils # Man Lymphocytes # (Manual) PT INR APTT POC ABG pH POC ABG pCO2 POC ABG pO2 Sodium 133 L Chloride 97.5 L BUN 90 H Creatinine 3.4 H Glucose 47 L POC Glucose 69 L Calcium 7.1 L AST ALT NT-Pro-B Natriuret Pep Total Protein Albumin Urine WBC (Auto) Crossmatch 04/19/19 04/19/19 04/19/19 05:46 06:48 10:19 WBC RBC Hgb Hct RDW Plt Count Lymph % (Auto) Lymph # Seg Neutrophils % Seg Neuts % (Manual) Seg Neutrophils # Man Lymphocytes # (Manual) PT INR APTT POC ABG pH POC ABG pCO2 POC ABG pO2 Sodium Chloride BUN Creatinine Glucose POC Glucose 48 L 127 H 63 L Calcium AST ALT NT-Pro-B Natriuret Pep Total Protein Albumin Urine WBC (Auto) Crossmatch 04/19/19 04/19/19 04/19/19 11:19 14:12 14:22 WBC RBC Hgb Hct RDW Plt Count Lymph % (Auto) Lymph # Seg Neutrophils % Seg Neuts % (Manual) Seg Neutrophils # Man Lymphocytes # (Manual) PT INR APTT POC ABG pH POC ABG pCO2 52.8 H POC ABG pO2 142 H Sodium Chloride BUN Creatinine Glucose POC Glucose 121 H 67 L Calcium AST ALT NT-Pro-B Natriuret Pep Total Protein Albumin Urine WBC (Auto) Crossmatch 04/19/19 04/19/19 04/20/19 15:38 22:03 04:11 WBC RBC Hgb Hct RDW Plt Count Lymph % (Auto) Lymph # Seg Neutrophils % Seg Neuts % (Manual) Seg Neutrophils # Man Lymphocytes # (Manual) PT INR APTT POC ABG pH POC ABG pCO2 POC ABG pO2 Sodium Chloride BUN Creatinine Glucose POC Glucose 139 H 60 L 62 L Calcium AST ALT NT-Pro-B Natriuret Pep Total Protein Albumin Urine WBC (Auto) Crossmatch 04/20/19 04/20/19 04/20/19 04:45 04:45 06:49 WBC 2.7 L RBC 3.10 L Hgb 9.2 L Hct 27.3 L RDW 15.5 H Plt Count 75 L Lymph % (Auto) Lymph # 0.4 L Seg Neutrophils % 79.1 H Seg Neuts % (Manual) Seg Neutrophils # Man Lymphocytes # (Manual) PT INR APTT POC ABG pH POC ABG pCO2 POC ABG pO2 Sodium Chloride BUN 96 H Creatinine 3.5 H Glucose 105 H POC Glucose 129 H Calcium 7.1 L AST ALT NT-Pro-B Natriuret Pep Total Protein Albumin Urine WBC (Auto) Crossmatch 04/20/19 04/20/19 04/21/19 14:38 21:56 06:40 WBC 2.6 L RBC 3.34 L Hgb Hct 29.5 L RDW 15.5 H Plt Count 43 L Lymph % (Auto) Lymph # Seg Neutrophils % Seg Neuts % (Manual) Seg Neutrophils # Man 1.6 L Lymphocytes # (Manual) 0.7 L PT INR APTT POC ABG pH POC ABG pCO2 POC ABG pO2 Sodium Chloride BUN Creatinine Glucose POC Glucose 130 H 118 H Calcium AST ALT NT-Pro-B Natriuret Pep Total Protein Albumin Urine WBC (Auto) Crossmatch 04/21/19 04/21/19 04/21/19 06:40 17:44 21:26 WBC RBC Hgb Hct RDW Plt Count Lymph % (Auto) Lymph # Seg Neutrophils % Seg Neuts % (Manual) Seg Neutrophils # Man Lymphocytes # (Manual) PT INR APTT POC ABG pH POC ABG pCO2 POC ABG pO2 Sodium 136 L Chloride BUN 71 H Creatinine 2.9 H Glucose POC Glucose 109 H 142 H Calcium 6.6 L AST ALT NT-Pro-B Natriuret Pep Total Protein Albumin Urine WBC (Auto) Crossmatch 04/22/19 01:59 WBC RBC Hgb Hct RDW Plt Count Lymph % (Auto) Lymph # Seg Neutrophils % Seg Neuts % (Manual) Seg Neutrophils # Man Lymphocytes # (Manual) PT INR APTT POC ABG pH POC ABG pCO2 POC ABG pO2 Sodium Chloride BUN Creatinine Glucose POC Glucose 121 H Calcium AST ALT NT-Pro-B Natriuret Pep Total Protein Albumin Urine WBC (Auto) Crossmatch Chest x-ray: report reviewed, image reviewed
[2019-04-23] MEDS: CARAFATE PO SCH ×3 (00:14→14:04)
--- NOTE | 2019-04-23 06:26 | Hem/Onc Progress Note ---
Assessment and Plan 1. Anemia, history of gastrointestinal bleed, seen by GI team. Transfusion support as needed. leukopenia - low platelet 2. History of multiple peptic ulcers. 3. History of cerebrovascular accident. 4. History of end-stage renal disease, on dialysis. 5. History of congestive heart failure. 6. History of hepatitis C. 7. History of diabetes. 8. History of hypothyroidism. 9. History of hypertension. 10. History of dementia. 11. The patient also has thrombocytopenia. This may be secondary to consumption. Her main issue appears to be bleeding. She is being followed by the GI team. The patient has undergone biopsies in the past. This showed inflammation. The patient also has leukopenia. B12 was normal in February. Folate was normal. Serum iron was normal. Ferritin will be looked into. h/o Recurrrent GI bleed: she is s/p empiric embolization of L gastric artery 02/10/2019. EGD 02/13/19 revealed large ulcer (4cm) on lesser curve; no visible vessel, mild gastritis, and small hiatal hernia (bx negative for H.pylori/malignancy) s/p repeat EGD 03/01/19 that showed ulcerative esophagitis with adherent clot with underlying oozing of blood (clip x 1 with hemostasis), and large ulcer along lesser curvature as seen on prior endoscopy with necrosis appearance but no high risk bleeding lesions. She has a negative colonoscopy at [facility] per pt report 01/2019. 04/23 - dark stool - guiac test - labs - Patient Problems (1) Anemia Current Visit: Yes Status: Acute Qualifiers: Anemia type: iron deficiency Iron deficiency anemia type: chronic blood loss Qualified Code(s): D50.0 - Iron deficiency anemia secondary to blood loss (chronic) Subjective Date of service: 04/23/19 Principal diagnosis: low platelet Interval history: dark stool Objective - Exam Narrative Exam: Pain - n/a General appearance - thin built Performance status limited self care Eyes - no icterus ENT - no bleeding LNs cervical not palpable Neck - no LN Respiratory Normal Breath sounds - CTA anteriorly CVS S1 S2 + Extremities no edema General GI Soft Rectal deferred female - deferred Skin warm Musculoskeletal moves limbs Neurologically - alert awake - Constitutional Vitals: Last Vital Signs Temp 98.4 F 04/23/19 04:00 Pulse 74 04/23/19 06:01 Resp 8 L 04/23/19 06:01 BP 124/84 04/23/19 06:01 Pulse Ox 98 04/23/19 06:01 - Labs Lab Results: Laboratory Results - last 24 hr 04/21/19 04/22/19 04/22/19 17:44 08:03 17:04 POC Glucose 109 H 85 100 04/22/19 21:55 POC Glucose 84 Medications & Allergies - Medications Allergies/Adverse Reactions: Allergies guaifenesin [From Robitussin] Allergy (Verified 02/09/19 07:00) Hives Penicillins Allergy (Verified 02/09/19 07:00) Hives Home Medications: Home Medications Medication Instructions Recorded Confirmed Last Taken Type Acetaminophen [Acetaminophen TAB] 650 mg PO Q12HR PRN 02/09/19 04/18/19 04/05/19 History Polyethylene Glycol 3350 [Miralax 17 gm PO DAILY 02/09/19 04/18/19 04/05/19 History 3350] Albuterol Sulfate [Proair 2 puff IH Q6HR PRN 02/28/19 04/18/19 04/05/19 History Respiclick] Antifungal 1% CREAM 1 pack TP DAILY 02/28/19 04/18/19 04/05/19 History Calcium Acetate [Phoslo] 667 mg PO TID 02/28/19 04/18/19 04/05/19 History Ferrous Sulfate [Feosol 325 MG tab] 325 mg PO BID 02/28/19 04/18/19 04/05/19 History Folic Acid [Folvite] 1 mg PO DAILY 02/28/19 04/18/19 04/05/19 History Glucagon (Human Recomb) [Glucagen] 1 mg IM Q15MIN PRN 02/28/19 04/18/19 04/05/19 History Insulin Lispro [Humalog 100 100 unit SQ PRN PRN 02/28/19 04/18/19 04/05/19 History UNITS/ML Kwikpen] Levothyroxine [Synthroid] 150 mcg PO QAM 02/28/19 04/18/19 04/05/19 History PARoxetine HCl [PARoxetine] 20 mg PO HS 02/28/19 04/18/19 04/05/19 History Sennosides Tab [Senokot] 1 tab PO HS PRN 02/28/19 04/18/19 04/05/19 History Thiamine [Vitamin B-1] 100 mg PO DAILY 02/28/19 04/18/19 04/05/19 History risperiDONE [Risperdal] 2 mg PO DAILY 02/28/19 04/18/19 04/05/19 History Pantoprazole [Protonix TAB] 40 mg PO BID 60 Days tablet 03/06/19 04/18/19 04/05/19 Rx AtorvaSTATin 80 mg PO HS 04/18/19 04/18/19 Unknown History Levothyroxine 150 mcg PO DAILY 04/18/19 04/18/19 Unknown History Midodrine 10 mg PO 3XW 04/18/19 04/18/19 Unknown History Active Medications: Generic Name Dose Route Start Last Admin Trade Name Freq PRN Reason Stop Dose Admin Acetaminophen 650 mg 04/18/19 02:09 Tylenol PO Q4H PRN Pain MILD(1-3)/Fever >100.5/SEYMOUR Albumin Human 25 gm 04/20/19 10:09 Alburx 25% (Albumin) IV MARCELA PRN Hypotension Albuterol 2.5 mg 04/18/19 00:38 Proventil IH Q6HRT PRN Shortness Of Breath Dextrose 25 gm 04/19/19 14:22 04/20/19 06:04 D50w (25gm) Vial IV 25 gm PRN PRN Administration Hypoglycemia Epoetin Jean Carlos 20,000 unit 04/18/19 10:13 Procrit IV MARCELA PRN hemodialysis Levofloxacin/Dextrose 500 mg in 100 mls @ 100 mls/hr 04/18/19 10:00 04/22/19 09:51 Levaquin 500mg/100ml IV 100 mls/hr Q48HR ROSELINE Administration Sodium Chloride 100 mls @ 999 mls/hr 04/22/19 09:59 Nacl 0.9% IV MARCELA PRN Hypotension Insulin Human Regular 0 units 04/18/19 07:30 04/22/19 22:16 Humulin R SUB-Q Not Given ACHS ROSELINE Protocol Ketoconazole 1 applic 04/18/19 10:00 04/22/19 10:30 Nizoral TP 1 applic DAILY ROSELINE Administration Midodrine 5 mg 04/20/19 10:09 Proamatine PO MARCELA PRN Hypotension Ondansetron HCl 4 mg 04/18/19 02:09 Zofran IV Q8H PRN Nausea And Vomiting Pantoprazole Sodium 40 mg 04/22/19 10:00 04/22/19 22:16 Protonix IV 40 mg BID ROSELINE Administration Sodium Chloride 10 ml 04/18/19 10:00 04/22/19 22:16 Sodium Chloride Flush Syringe 10 Ml IV 10 ml BID ROSELINE Administration Sodium Chloride 10 ml 04/18/19 02:09 Sodium Chloride Flush Syringe 10 Ml IV PRN PRN LINE FLUSH Sucralfate 1 gm 04/19/19 18:00 04/23/19 00:14 Carafate PO 1 gm Q6HR ROSELINE Administration
[2019-04-23 06:55] LABS: Total Protein,Body Fluid < 3.0 (15.0-45.0)
[2019-04-23] MEDS: HumuLIN R SUB-Q SCH ×2 (09:40→14:05)
[2019-04-23] MEDS ORDERED: PROTONIX PO SCH (10:00)
[2019-04-23 10:13] LABS: Basophils % (Auto) 0.6 % (0.0-1.8); Hematocrit 32.4 % (30.3-42.9); Hemoglobin 10.9 gm/dl (10.1-14.3); Lymphocytes # (Auto) 0.8 K/mm3 (1.2-5.4); Lymphocytes % (Auto) 23.4 % (13.4-35.0); Mean Corpuscular HGB Conc 34 % (30-34); Mean Corpuscular Volume 89 fl (79-97); Monocytes # (Auto) 0.1 K/mm3 (0.0-0.8); Monocytes % (Auto) 2.9 % (0.0-7.3); Red Blood Count 3.66 M/mm3 (3.65-5.03); Red Cell Distribution Width 15.2 % (13.2-15.2)
--- NOTE | 2019-04-23 10:23 | Progress Note ---
Subjective Principal diagnosis: low platelet Interval history: Patient was seen today for follow-up of multiple renal related issues No complaints of any chest pain pressure or shortness of breath Interdisciplinary notes that also reviewed Events of 24 hours vitals labs intake output medications were reviewed Past medical history: Reviewed Family history: Reviewed Social history: Reviewed Allergies: Reviewed Physical examination: Vitals: Reviewed HEENT: No pallor or icterus oral mucosa moist Neck: Supple no JVD no thyromegaly Chest: Bilateral clear to auscultation anteriorly Heart: Regular rate and rhythm S1-S2 heard no S3-S4 Abdomen: Soft nontender no voluntary guarding rigidity rebound Extremity: Dry skin less than 1+ peripheral edema Psychiatric: No evidence of agitation and aggression noted Dermatology: No petechial rashes Labs and x-rays: Reviewed from today Assessment and plan End-stage renal disease: Patient is currently on hemodialysis on Tuesday and Tuesday schedule, monitor dialysis related labs periodically The dialysis only as tolerated monitoring and hemodynamics by the dialysis nurse Anemia and end-stage renal disease: Monitor hemoglobin and hematocrit erythropoietin as needed. Admitted with hematemesis, anemia with blood loss, peptic ulcer disease Secondary hyperparathyroidism: Check phosphorus and PTH level periodically Dialysis access: Currently working well Please consider dietitian consultation due to dialysis status, patient does need high-protein diet Fluid restriction: 1200 cc per day not to exceed more than that Adequately counseled and educated about other hospital related issues as well Labs were discussed with patient and simple [place]an Patient does appear to have good understanding of all the dialysis related issues Multiple comorbidities including hepatitis C, diabetes, hypertension, dementia, congestive heart failure, CVA Prognosis guarded Patient was adequately counseled and educated regarding all the renal related issues Laboratory studies, pertinent for discussed with patient All questions were answered and simple [place]an We'll continue to follow and make recommendation for renal standpoint Objective - Vital Signs Vital signs: Vital Signs - 12hr 04/22/19 04/22/19 04/22/19 22:31 23:01 23:31 Temperature Pulse Rate 84 88 84 Pulse Rate [ From Monitor] Respiratory 10 L 14 11 L Rate Blood Pressure 93/61 121/79 121/79 O2 Sat by Pulse 100 100 Oximetry 04/22/19 04/22/19 04/23/19 23:47 23:51 00:00 Temperature 98.5 F Pulse Rate 84 82 Pulse Rate [ 93 H From Monitor] Respiratory 13 11 L Rate Blood Pressure 121/79 124/85 O2 Sat by Pulse 100 100 Oximetry 04/23/19 04/23/19 04/23/19 00:31 01:00 01:31 Temperature Pulse Rate 83 81 81 Pulse Rate [ From Monitor] Respiratory 12 10 L 10 L Rate Blood Pressure 124/85 122/92 122/92 O2 Sat by Pulse 100 100 98 Oximetry 04/23/19 04/23/19 04/23/19 02:00 02:31 03:00 Temperature Pulse Rate 79 79 79 Pulse Rate [ From Monitor] Respiratory 12 10 L 10 L Rate Blood Pressure 123/86 123/86 122/83 O2 Sat by Pulse 100 100 99 Oximetry 04/23/19 04/23/19 04/23/19 03:31 04:00 04:31 Temperature 98.4 F Pulse Rate 80 80 80 Pulse Rate [ 80 From Monitor] Respiratory 9 L 10 L 10 L Rate Blood Pressure 122/83 124/84 124/84 O2 Sat by Pulse 100 100 100 Oximetry 04/23/19 04/23/19 04/23/19 05:01 05:31 06:01 Temperature Pulse Rate 79 79 74 Pulse Rate [ From Monitor] Respiratory 11 L 11 L 8 L Rate Blood Pressure 124/84 124/84 124/84 O2 Sat by Pulse 100 99 98 Oximetry - Lab 04/21/19 06:40 04/21/19 06:40 Most recent lab results Calcium 6.6 mg/dL (8.4-10.2) L 04/21/19 06:40 Medications & Allergies - Medications Allergies/Adverse Reactions: Allergies guaifenesin [From Robitussin] Allergy (Verified 02/09/19 07:00) Hives Penicillins Allergy (Verified 02/09/19 07:00) Hives Home Medications: Home Medications Medication Instructions Recorded Confirmed Last Taken Type Acetaminophen [Acetaminophen TAB] 650 mg PO Q12HR PRN 02/09/19 04/18/19 04/05/19 History Polyethylene Glycol 3350 [Miralax 17 gm PO DAILY 02/09/19 04/18/19 04/05/19 History 3350] Albuterol Sulfate [Proair 2 puff IH Q6HR PRN 02/28/19 04/18/19 04/05/19 History Respiclick] Antifungal 1% CREAM 1 pack TP DAILY 02/28/19 04/18/19 04/05/19 History Calcium Acetate [Phoslo] 667 mg PO TID 02/28/19 04/18/19 04/05/19 History Ferrous Sulfate [Feosol 325 MG tab] 325 mg PO BID 02/28/19 04/18/19 04/05/19 History Folic Acid [Folvite] 1 mg PO DAILY 02/28/19 04/18/19 04/05/19 History Glucagon (Human Recomb) [Glucagen] 1 mg IM Q15MIN PRN 02/28/19 04/18/19 04/05/19 History Insulin Lispro [Humalog 100 100 unit SQ PRN PRN 02/28/19 04/18/19 04/05/19 History UNITS/ML Kwikpen] Levothyroxine [Synthroid] 150 mcg PO QAM 02/28/19 04/18/19 04/05/19 History PARoxetine HCl [PARoxetine] 20 mg PO HS 02/28/19 04/18/19 04/05/19 History Sennosides Tab [Senokot] 1 tab PO HS PRN 02/28/19 04/18/19 04/05/19 History Thiamine [Vitamin B-1] 100 mg PO DAILY 02/28/19 04/18/19 04/05/19 History risperiDONE [Risperdal] 2 mg PO DAILY 02/28/19 04/18/19 04/05/19 History Pantoprazole [Protonix TAB] 40 mg PO BID 60 Days tablet 03/06/19 04/18/19 04/05/19 Rx AtorvaSTATin 80 mg PO HS 04/18/19 04/18/19 Unknown History Levothyroxine 150 mcg PO DAILY 04/18/19 04/18/19 Unknown History Midodrine 10 mg PO 3XW 04/18/19 04/18/19 Unknown History Active Medications: Generic Name Dose Route Start Last Admin Trade Name Freq PRN Reason Stop Dose Admin Acetaminophen 650 mg 04/18/19 02:09 Tylenol PO Q4H PRN Pain MILD(1-3)/Fever >100.5/SEYMOUR Albumin Human 25 gm 04/20/19 10:09 04/23/19 10:15 Alburx 25% (Albumin) IV 25 gm MARCELA PRN Administration Hypotension Albuterol 2.5 mg 04/18/19 00:38 Proventil IH Q6HRT PRN Shortness Of Breath Dextrose 25 gm 04/19/19 14:22 04/20/19 06:04 D50w (25gm) Vial IV 25 gm PRN PRN Administration Hypoglycemia Epoetin Jean Carlos 20,000 unit 04/18/19 10:13 Procrit IV MARCELA PRN hemodialysis Sodium Chloride 100 mls @ 999 mls/hr 04/22/19 09:59 Nacl 0.9% IV MARCELA PRN Hypotension Insulin Human Regular 0 units 04/18/19 07:30 04/23/19 09:40 Humulin R SUB-Q Not Given ACHS [facility] Protocol Ketoconazole 1 applic 04/18/19 10:00 04/22/19 10:30 Nizoral TP 1 applic DAILY ROSELINE Administration Midodrine 5 mg 04/20/19 10:09 Proamatine PO MARCELA PRN Hypotension Ondansetron HCl 4 mg 04/18/19 02:09 Zofran IV Q8H PRN Nausea And Vomiting Pantoprazole Sodium 40 mg 04/23/19 10:00 Protonix PO BID ROSELINE Sodium Chloride 10 ml 04/18/19 10:00 04/22/19 22:16 Sodium Chloride Flush Syringe 10 Ml IV 10 ml BID ROSELINE Administration Sodium Chloride 10 ml 04/18/19 02:09 Sodium Chloride Flush Syringe 10 Ml IV PRN PRN LINE FLUSH Sucralfate 1 gm 04/19/19 18:00 04/23/19 06:29 Carafate PO 1 gm Q6HR ROSELINE Administration
[2019-04-23 10:25] LABS: Platelet Count 37 K/mm3 (140-440)
[2019-04-23 10:37] LABS: Calcium 6.2 mg/dL (8.4-10.2)
[2019-04-23] MEDS ORDERED: PROAMATINE PO PRN (10:42)
[2019-04-23] MEDS ORDERED: LEVOTHYROXINE 150 MCG PO SCH (10:45)
[2019-04-23] MEDS ORDERED: NON-FORMULARY (Risperidone [Risperdal] 2 MG) PO SCH (10:45)
[2019-04-23] MEDS ORDERED: IMODIUM PO PRN (10:51)
[2019-04-23] MEDS ORDERED: SYNTHROID PO SCH (11:00)
[2019-04-23] MEDS ORDERED: FOLVITE PO SCH (11:00)
[2019-04-23] MEDS ORDERED: VITAMIN B-1 PO SCH (11:00)
[2019-04-23] MEDS ORDERED: RisperDAL PO SCH (11:00)
--- NOTE | 2019-04-23 11:04 | Progress Note ---
Assessment and Plan Cultures: Blood culture 04/17/2019 no growth today. urine culture 04/19/2019 - Jennifer Assessment: 58 y/o female with history of recurrent GI, ESRD on HD, CHF, CVA, chronic anemia, diabetes, schizophrenia, ascites (secondary to poor nutrition/ESRD, no evidence of liver disease), and recent multiple admissions for recurrent upper GI bleed admitted on 04/17/2019 due to AMS and SOB: 1) Sepsis +/- severe hypovolemia due to bleed: present on admission with hypothermia, hypotension, source ? UTI. Blood culture 04/17/2019 no growth. no evidence of infectious process. Last day of empiric levofloxacin today. 2) CAUTI ? murphy present. Urine culture only growing Jennifer. 3) Severe anemia from GI Bleed 4) Recurrrent GI bleed: she is s/p empiric embolization of L gastric artery 02/10/2019. EGD 02/13/19 revealed large ulcer (4cm) on lesser curve; no visible vessel, mild gastritis, and small hiatal hernia (bx negative for H.pylori/malignancy) s/p repeat EGD 03/01/19 that showed ulcerative esophagitis with adherent clot with underlying oozing of blood (clip x 1 with hemostasis), and large ulcer along lesser curvature as seen on prior endoscopy with necrosis appearance but no high risk bleeding lesions. She has a negative colonoscopy at [place] per pt report 01/2019. 5) ESRD on HD 6) Chronic ascitis: No evidence of SBP on ascitic fluid. Recent CT abd shows massive ascitis, bilateral pleural effusions. 7) Pancytopenia: anemia due to GI bleed but unclear etiology of neutropenia and thrombocytopenia. Hematology consulted. 8) Candiduria - rarely represent true pathogen, would not treat. Recommendations: Completed levofloxacin. No diarrhea per discussion with RN, C.diff unlikely. Stable. ID will sign off. Please call with questions. Jaimee Tinsley MD, FACP [facility] ([facility] C: [phone] O: [phone] F: [phone] Subjective Date of service: 04/23/19 Principal diagnosis: low platelet Interval history: Awake, alert, getting dialysis. No fever. No complaints. no abdominal pain. Objective - Exam Narrative Exam: Physical Exam: Constitutional: Alert, cooperative. No acute distress Head, Ears, Nose: Normocephalic, atraumatic. External ears, nose normal Eyes: Conjunctivae/corneas clear. No icterus. No ptosis. Neck: Supple, no meningeal signs Cardiovascular: S1, S2 + Respiratory: Good air entry, clear to auscultation bilaterally GI: Soft, non-tender; bowel sounds normal. No peritoneal signs Musculoskeletal: No pedal edema, no cyanosis. HD cath + c/d/i Skin: No rash or abscess Hem/Lymphatic: No palpable cervical or supraclavicular nodes. No lymphangitis Psych: Mood ok. Affect normal. No agitation Neurological: Awake, alert. - Constitutional Vitals: Vital Signs Temp Pulse Resp BP Pulse Ox 93.4 F L 83 13 105/66 98 04/23/19 09:45 04/23/19 10:45 04/23/19 09:45 04/23/19 10:45 04/23/19 06:01 Temperature -Last 24 Hours Temperature 93.4 F Temperature 98.4 F Temperature 98.5 F Temperature 97.4 F Temperature 98.1 F Temperature 95.8 F - Labs CBC & Chem 7: 04/23/19 09:52 04/23/19 09:52 Labs: Abnormal lab results 04/18/19 04/23/19 04/23/19 Range/Units 11:50 09:52 09:52 WBC 3.2 L (4.5-11.0) K/mm3 Plt Count 37 L (140-440) K/mm3 Lymph # 0.8 L (1.2-5.4) K/mm3 Seg Neutrophils % 73.1 H (40.0-70.0) % BUN 58 H (7-17) mg/dL Creatinine 2.4 H (0.7-1.2) mg/dL Glucose 177 H (65-100) mg/dL Calcium 6.2 L (8.4-10.2) mg/dL Fluid Total Protein < 3.0 L (15.0-45.0)
--- NOTE | 2019-04-23 11:08 | Ultrasound Report ---
ULTRASOUND-GUIDED PARACENTESIS HISTORY: Ascities. PROCEDURE: The risks (including but not limited to bleeding, infection, and bowel injury) and benefi ts were explained to the patient and informed consent was obtained. A time out procedure was perform ed. Ultrasound was used to evaluate the abdomen and locate the largest ascites fluid pocket. Once the sk in was marked, the procedure site was prepped and draped in the usual sterile fashion and lidocaine w as used for local anesthesia. A skin constance was made and a 5 [place] centesis catheter was placed. The patient was monitored closely throughout the procedure, and a total of 8000 and mL of yellow fluid w as aspirated. Samples were sent to the lab for further evaluation per the primary clinicians orders. The patient tolerated the procedure well with no complications. IMPRESSION: Successful ultrasound-guided paracentesis as described. Signer Name: Travis Waggoner Jr, MD Signed: 04/23/2019 11:04 AM Workstation Name: [id number]
[2019-04-23] MEDS ORDERED: PHOSLO PO SCH (12:00)
--- NOTE | 2019-04-23 13:19 | Discharge Summary ---
Providers - Providers Date of Admission: 04/18/19 02:56 Date of discharge: 04/23/19 Attending physician: MARTI PATEL 04/18/19 00:05 Speech Therapy Evaluation and Treat [CONS] Routine Reason For Exam: failed screen 04/18/19 00:08 Consult to Physician [CONS] Stat Comment: Consulting Provider: JAMIE KAY Physician Instructions: Reason For Exam: ESRD 04/18/19 00:21 Consult to Physician [CONS] Routine Comment: Consulting Provider: JAYLIN SUAREZ Physician Instructions: Reason For Exam: sepsis 04/18/19 02:09 Consult to Physician [CONS] Routine Comment: Consulting Provider: LIZZY SHAFFER Physician Instructions: Reason For Exam: gi bleed 04/19/19 14:57 Consult to Physician [CONS] Routine Comment: Consulting Provider: IRINA SOARES Physician Instructions: Reason For Exam: anemia, thrombocytopenia 04/20/19 19:25 Consult to Wound/ET Nurse [CONS] Urgent Reason For Exam: wound eval-ongoing escoriation sacrum and open Primary care physician: MARINE ARCHITECT Hospitalization Condition: Fair Pertinent studies: Head CT CXR Procedures: EGD Paracentesis Hospital course: 58-year-old woman who is a resident of [facility] well-known to [facility]. History of end-stage renal disease on dialysis. Has been admitted multiple times for GI bleed due to peptic ulcer disease, history of multiple endoscopies. Who was brought to the hospital because she has not had dialysis since last . Seen at [place] for one day for hematemesis and then discharged. Per the patient's daughter for some reason she did not receive dialysis at [facility] nor does she received dialysis at [place]. She presented to [facility] with profound anemia - Hb 4.5, fluid overload, hypoxic respiratory failure, -Per family, she has not received dialysis since 6 days. She was admitted for further evaluation and mx. -EGD 02/13/19 revealed large ulcer (4cm) on lesser curve; no visible vessel, mild gastritis, and small hiatal hernia (bx negative for H.pylori/malignancy) -s/p repeat EGD 03/01/19 that showed ulcerative esophagitis with adherent clot with underlying oozing of blood (clip x 1 with hemostasis), and large ulcer along lesser curvature as seen on prior endoscopy with necrosis appearance but no high risk bleeding lesions Discharge diagnosis and Mx: Acute blood loss anemia; most likely causes recurrent GI bleed. Transfused 3 units PRBC, and H&H is currently stable Acute upper GI bleed, likely due to peptic ulcer disease; PPI twice daily, patient is not actively bleeding. GI consult appreciated End-stage renal disease, missed dialysis and anasarca; potassium is normal, BUN elevated, patient is very fluid overloaded. Nephrology consult appreciated. Sepsis/UTI ?; ID consulted, being treated as sepsis but No clear source of infection, presented with hypovolumia and Hypothermia; patient still on perico hugger, BP at low 90s Ascetic fluid analysis was done and doesn't look like patient has SBP. blood cx negative, Urine grew melody Completed abx empirically with levaquin per ID Thrombodytopenia; s/p 2 units of platelet transfusion, Hematology oncology consulted, will cont outpt f/u Acute hypoxic respiratory failure; due to fluid overload from missed dialysis - Resolved, Pulmonary is following Hypotension; BP is on the low side of normal. Hypothermia; on perico hugger Acute metabolic encephalopathy - possible has underlying dementia - patient is still confused, CT head w/o any acute finding Type 2 diabetes; SSI Chronic COPD, nebs as needed hypothyroidism on Synthroid, DVT prophylaxis SCDs, avoid blood thinners in light of GI bleed. Transfer to [facility] Hospitalist Physical Not in cardiopulmonary distress. The patient appeared well nourished and normally developed. Vital signs as documented. Head exam is unremarkable. No scleral icterus . Neck is without jugular venous distension, thyromegaly, or carotid bruits. Lungs are clear to auscultation. Cardiac exam reveals regular rate and Rhythm. Abdominal exam reveals normal bowel sounds. Extremities are nonedematous and both femoral and pedal pulses are normal. WOOD BORER: Alert and oriented to person Disposition: DC/[place]-03 [facility] C[facility] Time spent for discharge: 34 minutes Core Measure Documentation - Palliative Care Palliative Care/ Comfort Measures: Not Applicable - Core Measures Any of the following diagnoses?: none Exam - Constitutional Vitals: Temp Pulse Resp BP Pulse Ox 93.4 F L 79 13 104/69 98 04/23/19 09:45 04/23/19 12:45 04/23/19 09:45 04/23/19 12:45 04/23/19 06:01 Plan Activity: up only with assistance Weight Bearing Status: Non-Weight Bearing Diet: advance as tolerated Special Instructions: restrict fluid intake to (1.2L daily) Additional Instructions: GLORIA, BMP in one week Follow up with: PRIMARY CARE, [Primary Care Provider] - 3-5 Days
[2019-04-23] MEDS: SODIUM CHLORIDE FLUSH SYRINGE 10 ML IV SCH (14:06)
--- NOTE | 2019-04-23 14:24 | Progress Note ---
Assessment and Plan Imp: 1. GI bleed 2. PUD 3. Ulcerative esophagitis 4. Acute blood loss anemia 5. Pancytopenia 6. Cachexia 7. Anasarca 8. Ascites 9. ESRD 10. Hypotension, better 11. UTI Rec: 1. Changed Protonix from drip to BID and Sucralfate per GI; f/u esophagus biopsy 2. Monitor H/H 3. Heme eval. re: pancytopenia 4. Volume optimization with HD; would work to improve nutrition as some of her anasarca is probably due to 3rd spacing in the setting of malnutrition; soft mechanical diet per ST recs 5. ABX finished per ID 6. SCDs -> patient adamantly refusing per nurse; not a candidate for chemical PPx due to GI bleed 7. Pulm-rojas stable for transfer back to SNF Plan of care reviewed with mother/daughter, they understand/agree Subjective Date of service: 04/23/19 Principal diagnosis: GI bleed Interval history: No events. She is alert, appropriate, wants to go home. RA sats normal. Active Medications Acetaminophen (Tylenol) 650 mg PO Q4H PRN PRN Reason: Pain MILD(1-3)/Fever >100.5/[facility] Albumin Human (Alburx 25% (Albumin)) 25 gm IV MARCELA PRN PRN Reason: Hypotension Last Admin: 04/23/19 10:15 Dose: 25 gm Documented by: Albuterol (Proventil) 2.5 mg IH Q6HRT PRN PRN Reason: Shortness Of Breath Atorvastatin Calcium (Lipitor) 40 mg PO QHS [place] Calcium Acetate (Phoslo) 667 mg PO TIDWM [facility] Last Admin: 04/23/19 14:04 Dose: 667 mg Documented by: Dextrose (D50w (25gm) Vial) 25 gm IV PRN PRN PRN Reason: Hypoglycemia Last Admin: 04/20/19 06:04 Dose: 25 gm Documented by: Epoetin Jean [place] (Procrit) 20,000 unit IV MARCELA PRN PRN Reason: hemodialysis Ferrous Sulfate (Feosol) 325 mg PO BID ROSELINE Folic Acid (Folvite) 1 mg PO DAILY [facility] Last Admin: 04/23/19 14:04 Dose: 1 mg Documented by: Sodium Chloride (Nacl 0.9%) 100 mls @ 999 mls/hr IV MARCELA PRN PRN Reason: Hypotension Insulin Human Regular (Humulin R) 0 units SUB-Q ACHS [facility]; Protocol Last Admin: 04/23/19 14:05 Dose: Not Given Documented by: Ketoconazole (Nizoral) 1 applic TP DAILY [facility] Last Admin: 04/22/19 10:30 Dose: 1 applic Documented by: Levothyroxine Sodium (Synthroid) 150 mcg PO DAILY@0600 [facility] Loperamide HCl (Imodium) 2 mg PO Q2H PRN PRN Reason: Diarrhea Midodrine (Proamatine) 10 mg PO MARCELA PRN PRN Reason: Hypotension Last Admin: 04/23/19 14:04 Dose: 10 mg Documented by: Ondansetron HCl (Zofran) 4 mg IV Q8H PRN PRN Reason: Nausea And Vomiting Pantoprazole Sodium (Protonix) 40 mg PO BID [facility] Last Admin: 04/23/19 14:04 Dose: 40 mg Documented by: Risperidone (Risperdal) 2 mg PO DAILY [facility] Last Admin: 04/23/19 14:04 Dose: 2 mg Documented by: Sodium Chloride (Sodium Chloride Flush Syringe 10 Ml) 10 ml IV BID [facility] Last Admin: 04/23/19 14:06 Dose: 10 ml Documented by: Sodium Chloride (Sodium Chloride Flush Syringe 10 Ml) 10 ml IV PRN PRN PRN Reason: LINE FLUSH Sucralfate (Carafate) 1 gm PO Q6HR [facility] Last Admin: 04/23/19 14:04 Dose: 1 gm Documented by: Thiamine HCl (Vitamin B-1) 100 mg PO DAILY [facility] Objective Vital Signs - 12hr 04/23/19 04/23/19 04/23/19 02:31 03:00 03:31 Temperature Pulse Rate 79 79 80 Pulse Rate [ From Monitor] Respiratory 10 L 10 L 9 L Rate Blood Pressure 123/86 122/83 122/83 O2 Sat by Pulse 100 99 100 Oximetry 04/23/19 04/23/19 04/23/19 04:00 04:31 05:01 Temperature 98.4 F Pulse Rate 80 80 79 Pulse Rate [ 80 From Monitor] Respiratory 10 L 10 L 11 L Rate Blood Pressure 124/84 124/84 124/84 O2 Sat by Pulse 100 100 100 Oximetry 04/23/19 04/23/19 04/23/19 05:31 06:01 09:30 Temperature Pulse Rate 79 74 79 Pulse Rate [ From Monitor] Respiratory 11 L 8 L Rate Blood Pressure 124/84 124/84 97/66 O2 Sat by Pulse 99 98 Oximetry 04/23/19 04/23/19 04/23/19 09:45 10:00 10:15 Temperature 93.4 F L Pulse Rate 83 80 79 Pulse Rate [ From Monitor] Respiratory 13 Rate Blood Pressure 91/61 75/45 63/42 O2 Sat by Pulse Oximetry 04/23/19 04/23/19 04/23/19 10:27 10:30 10:45 Temperature Pulse Rate 79 79 83 Pulse Rate [ From Monitor] Respiratory Rate Blood Pressure 88/68 100/64 105/66 O2 Sat by Pulse Oximetry 04/23/19 04/23/19 04/23/19 11:00 11:15 11:30 Temperature Pulse Rate 82 81 80 Pulse Rate [ From Monitor] Respiratory Rate Blood Pressure 110/63 100/60 113/71 O2 Sat by Pulse Oximetry 04/23/19 04/23/19 04/23/19 11:45 12:00 12:15 Temperature Pulse Rate 79 82 79 Pulse Rate [ From Monitor] Respiratory Rate Blood Pressure 116/77 119/77 114/76 O2 Sat by Pulse Oximetry 04/23/19 04/23/19 12:30 12:45 Temperature Pulse Rate 84 79 Pulse Rate [ From Monitor] Respiratory Rate Blood Pressure 119/77 104/69 O2 Sat by Pulse Oximetry Constitutional: alert, other (cachectic appearing) Eyes: non-icteric Neck: supple Effort: normal Ascultation: Bilateral: diminished breath sounds (bases) Cardiovascular: regular rate and rhythm (no mrg) Gastrointestinal: normoactive bowel sounds, soft, non-distended, other (ascites, better after paracentesis) Integumentary: normal, other (did not examine back/sacrum) Extremities: no cyanosis, anasarca Neurologic: normal mental status, non-focal exam, pupils equal and round Psychiatric: mood appropriate, affect normal CBC and BMP: 04/23/19 09:52 04/23/19 09:52 ABG, PT/INR, D-dimer: ABG POC ABG pH 7.354 (7.35-7.45) 04/19/19 14:12 POC ABG pCO2 52.8 (35-45) H 04/19/19 14:12 POC ABG pO2 142 (80-105) H 04/19/19 14:12 POC ABG HCO3 29.4 (22-26 mml/L) 04/19/19 14:12 POC ABG Total CO2 31 (23-27mmol/L) 04/19/19 14:12 POC ABG O2 Sat 99 04/19/19 14:12 PT/INR, D-dimer PT 16.8 Sec. (12.2-14.9) H 04/17/19 21:53 INR 1.40 (0.87-1.13) H 04/17/19 21:53 Abnormal lab findings: Abnormal Labs 04/17/19 04/17/19 04/17/19 21:53 21:53 22:00 WBC 2.1 L RBC 1.62 L Hgb 4.5 L* Hct 13.7 L* RDW 16.2 H Plt Count 33 L Lymph % (Auto) Lymph # Seg Neutrophils % Seg Neuts % (Manual) 82 H Seg Neutrophils # Man 1.7 L Lymphocytes # (Manual) 0.3 L PT 16.8 H INR 1.40 H APTT 48.0 H POC ABG pH POC ABG pCO2 POC ABG pO2 Sodium Chloride BUN Creatinine Glucose POC Glucose Calcium AST ALT NT-Pro-B Natriuret Pep 64808 H Total Protein Albumin TSH Urine WBC (Auto) Fluid Total Protein Crossmatch 04/17/19 04/17/19 04/17/19 22:00 22:40 23:20 WBC RBC Hgb Hct RDW Plt Count Lymph % (Auto) Lymph # Seg Neutrophils % Seg Neuts % (Manual) Seg Neutrophils # Man Lymphocytes # (Manual) PT INR APTT POC ABG pH 7.336 L POC ABG pCO2 54.9 H POC ABG pO2 Sodium 134 L Chloride BUN 83 H Creatinine 3.2 H Glucose 102 H POC Glucose Calcium 7.0 L AST 165 H ALT 111 H NT-Pro-B Natriuret Pep Total Protein 4.5 L Albumin 2.0 L TSH Urine WBC (Auto) > 182.0 H Fluid Total Protein Crossmatch 04/17/19 04/18/19 04/18/19 23:41 11:50 12:13 WBC RBC Hgb Hct RDW Plt Count Lymph % (Auto) Lymph # Seg Neutrophils % Seg Neuts % (Manual) Seg Neutrophils # Man Lymphocytes # (Manual) PT INR APTT POC ABG pH POC ABG pCO2 POC ABG pO2 Sodium Chloride BUN Creatinine Glucose POC Glucose 127 H Calcium AST ALT NT-Pro-B Natriuret Pep Total Protein Albumin TSH Urine WBC (Auto) Fluid Total Protein < 3.0 L Crossmatch See Detail 04/18/19 04/19/19 04/19/19 20:27 00:13 04:20 WBC 2.9 L RBC 3.29 L Hgb 10.0 L D 9.9 L Hct 29.0 L D 28.8 L RDW Plt Count 49 L Lymph % (Auto) 11.6 L Lymph # 0.3 L Seg Neutrophils % 85.5 H Seg Neuts % (Manual) Seg Neutrophils # Man Lymphocytes # (Manual) PT INR APTT POC ABG pH POC ABG pCO2 POC ABG pO2 Sodium Chloride BUN Creatinine Glucose POC Glucose 69 L Calcium AST ALT NT-Pro-B Natriuret Pep Total Protein Albumin TSH Urine WBC (Auto) Fluid Total Protein Crossmatch 04/19/19 04/19/19 04/19/19 04:20 05:46 06:48 WBC RBC Hgb Hct RDW Plt Count Lymph % (Auto) Lymph # Seg Neutrophils % Seg Neuts % (Manual) Seg Neutrophils # Man Lymphocytes # (Manual) PT INR APTT POC ABG pH POC ABG pCO2 POC ABG pO2 Sodium 133 L Chloride 97.5 L BUN 90 H Creatinine 3.4 H Glucose 47 L POC Glucose 48 L 127 H Calcium 7.1 L AST ALT NT-Pro-B Natriuret Pep Total Protein Albumin TSH Urine WBC (Auto) Fluid Total Protein Crossmatch 04/19/19 04/19/19 04/19/19 10:19 11:19 14:12 WBC RBC Hgb Hct RDW Plt Count Lymph % (Auto) Lymph # Seg Neutrophils % Seg Neuts % (Manual) Seg Neutrophils # Man Lymphocytes # (Manual) PT INR APTT POC ABG pH POC ABG pCO2 52.8 H POC ABG pO2 142 H Sodium Chloride BUN Creatinine Glucose POC Glucose 63 L 121 H Calcium AST ALT NT-Pro-B Natriuret Pep Total Protein Albumin TSH Urine WBC (Auto) Fluid Total Protein Crossmatch 04/19/19 04/19/19 04/19/19 14:22 15:38 22:03 WBC RBC Hgb Hct RDW Plt Count Lymph % (Auto) Lymph # Seg Neutrophils % Seg Neuts % (Manual) Seg Neutrophils # Man Lymphocytes # (Manual) PT INR APTT POC ABG pH POC ABG pCO2 POC ABG pO2 Sodium Chloride BUN Creatinine Glucose POC Glucose 67 L 139 H 60 L Calcium AST ALT NT-Pro-B Natriuret Pep Total Protein Albumin TSH Urine WBC (Auto) Fluid Total Protein Crossmatch 04/20/19 04/20/19 04/20/19 04:11 04:45 04:45 WBC 2.7 L RBC 3.10 L Hgb 9.2 L Hct 27.3 L RDW 15.5 H Plt Count 75 L Lymph % (Auto) Lymph # 0.4 L Seg Neutrophils % 79.1 H Seg Neuts % (Manual) Seg Neutrophils # Man Lymphocytes # (Manual) PT INR APTT POC ABG pH POC ABG pCO2 POC ABG pO2 Sodium Chloride BUN 96 H Creatinine 3.5 H Glucose 105 H POC Glucose 62 L Calcium 7.1 L AST ALT NT-Pro-B Natriuret Pep Total Protein Albumin TSH Urine WBC (Auto) Fluid Total Protein Crossmatch 04/20/19 04/20/19 04/20/19 06:49 14:38 21:56 WBC RBC Hgb Hct RDW Plt Count Lymph % (Auto) Lymph # Seg Neutrophils % Seg Neuts % (Manual) Seg Neutrophils # Man Lymphocytes # (Manual) PT INR APTT POC ABG pH POC ABG pCO2 POC ABG pO2 Sodium Chloride BUN Creatinine Glucose POC Glucose 129 H 130 H 118 H Calcium AST ALT NT-Pro-B Natriuret Pep Total Protein Albumin TSH Urine WBC (Auto) Fluid Total Protein Crossmatch 04/21/19 04/21/19 04/21/19 06:40 06:40 17:44 WBC 2.6 L RBC 3.34 L Hgb Hct 29.5 L RDW 15.5 H Plt Count 43 L Lymph % (Auto) Lymph # Seg Neutrophils % Seg Neuts % (Manual) Seg Neutrophils # Man 1.6 L Lymphocytes # (Manual) 0.7 L PT INR APTT POC ABG pH POC ABG pCO2 POC ABG pO2 Sodium 136 L Chloride BUN 71 H Creatinine 2.9 H Glucose POC Glucose 109 H Calcium 6.6 L AST ALT NT-Pro-B Natriuret Pep Total Protein Albumin TSH Urine WBC (Auto) Fluid Total Protein Crossmatch 04/21/19 04/22/19 04/22/19 21:26 01:59 11:41 WBC RBC Hgb Hct RDW Plt Count Lymph % (Auto) Lymph # Seg Neutrophils % Seg Neuts % (Manual) Seg Neutrophils # Man Lymphocytes # (Manual) PT INR APTT POC ABG pH POC ABG pCO2 POC ABG pO2 Sodium Chloride BUN Creatinine Glucose POC Glucose 142 H 121 H 120 H Calcium AST ALT NT-Pro-B Natriuret Pep Total Protein Albumin TSH Urine WBC (Auto) Fluid Total Protein Crossmatch 04/23/19 04/23/19 04/23/19 09:52 09:52 12:04 WBC 3.2 L RBC Hgb Hct RDW Plt Count 37 L Lymph % (Auto) Lymph # 0.8 L Seg Neutrophils % 73.1 H Seg Neuts % (Manual) Seg Neutrophils # Man Lymphocytes # (Manual) PT INR APTT POC ABG pH POC ABG pCO2 POC ABG pO2 Sodium Chloride BUN 58 H Creatinine 2.4 H Glucose 177 H POC Glucose Calcium 6.2 L AST ALT NT-Pro-B Natriuret Pep Total Protein Albumin TSH 15.140 H Urine WBC (Auto) Fluid Total Protein Crossmatch Chest x-ray: report reviewed, image reviewed
[2019-04-23 15:45] VITALS: BP 52/32
[2019-04-23] MEDS ORDERED: NON-FORMULARY (Atorvastatin 40 MG) PO SCH (22:00)
[2019-04-23] MEDS ORDERED: FEOSOL PO SCH (22:00)
== END 2019-04-23 15:00 | DRG 871 ==
LOC: ED 20:32 → CC1 04-18 02:56 → IMCU 04-22 11:50
PROVIDERS: ADMIT Internal Medicine; ATTEND Internal Medicine
PROC: 5A09357 Assistance with Respiratory Ventilation, Less than 24 Consecutive Hours, Continuous Positive Airway Pressure (ICD-10-PCS; 2019-04-17)
PROC: 4A033R1 Measurement of Arterial Saturation, Peripheral, Percutaneous Approach (ICD-10-PCS; 2019-04-17)
PROC: 30233R1 Transfusion of Nonautologous Platelets into Peripheral Vein, Percutaneous Approach (ICD-10-PCS; 2019-04-18)
PROC: 30233N1 Transfusion of Nonautologous Red Blood Cells into Peripheral Vein, Percutaneous Approach (ICD-10-PCS; 2019-04-18)
PROC: 0W9G3ZZ Drainage of Peritoneal Cavity, Percutaneous Approach (ICD-10-PCS; 2019-04-18)
PROC: 0DB58ZX Excision of Esophagus, Via Natural or Artificial Opening Endoscopic, Diagnostic (ICD-10-PCS; 2019-04-19)
PROC: 0W9G3ZZ Drainage of Peritoneal Cavity, Percutaneous Approach (ICD-10-PCS; principal; 2019-04-20)
PROC: 5A1D70Z Performance of Urinary Filtration, Intermittent, Less than 6 Hours Per Day (ICD-10-PCS; 2019-04-20)
PROC: 5A1D70Z Performance of Urinary Filtration, Intermittent, Less than 6 Hours Per Day (ICD-10-PCS; 2019-04-23)
DX: A41.9 Sepsis, unspecified organism (principal); J96.01 Acute respiratory failure with hypoxia; N18.6 End stage renal disease; G93.41 Metabolic encephalopathy; K22.11 Ulcer of esophagus with bleeding; K25.4 Chronic or unspecified gastric ulcer with hemorrhage; D62 Acute posthemorrhagic anemia; N39.0 Urinary tract infection, site not specified; J44.9 Chronic obstructive pulmonary disease, unspecified; E03.9 Hypothyroidism, unspecified; F03.90 Unspecified dementia, unspecified severity, without behavioral disturbance, psychotic disturbance, mood disturbance, and anxiety; I25.10 Atherosclerotic heart disease of native coronary artery without angina pectoris; I50.9 Heart failure, unspecified; I13.2 Hypertensive heart and chronic kidney disease with heart failure and with stage 5 chronic kidney disease, or end stage renal disease; K21.9 Gastro-esophageal reflux disease without esophagitis; G89.29 Other chronic pain; F31.9 Bipolar disorder, unspecified; E11.22 Type 2 diabetes mellitus with diabetic chronic kidney disease; R64 Cachexia; K44.9 Diaphragmatic hernia without obstruction or gangrene; D63.1 Anemia in chronic kidney disease; N25.81 Secondary hyperparathyroidism of renal origin; E86.1 Hypovolemia; R18.8 Other ascites; D61.818 Other pancytopenia; Z86.73 Personal history of transient ischemic attack (TIA), and cerebral infarction without residual deficits; Z88.8 Allergy status to other drugs, medicaments and biological substances; Z88.0 Allergy status to penicillin; Z99.2 Dependence on renal dialysis; Z79.51 Long term (current) use of inhaled steroids; Z79.899 Other long term (current) drug therapy; Z79.4 Long term (current) use of insulin; Z68.37 Body mass index [BMI] 37.0-37.9, adult
CPT/HCPCS: 36415; 36600; 49083; 70450; 71045; 80048; 80053; 81001; 82140; 82270; 82803; 82962; 83880; 84160; 84443; 85007; 85018; 85025; 85610; 85730; 86850; 86900; 86901; 86920; 87040; 87086; 87116; 87493; 88305; 88312; 88342; 89051; 94760; 96374; 99292; G0378; C9113; J1940; J1956; J2704; J7030; J7040; P9016; P9035; P9047